=== PATIENT | female | born 1955 | race Caucasian/White ===

== ENCOUNTER → 2017-08-02 15:17 | Outpatient (REF) | payer MEDICAID, SELFPAY ==
[2017-08-02 17:27] LABS: Microscopic, Urine URINE MICROSCOPIC (MICROSCOPIC)
[2017-08-02 18:09] LABS: Basophils # 0.1 K/mm3 (0-0.2); Eosinophils # 0.1 K/mm3 (0.0-0.4); Hemoglobin 17.6 g/dL (12.2-16.2); Lymphocytes # 3.3 K/mm3 (0.7-4.5); Lymphocytes % 40.9 K/mm3 (10-50); Mean Corpuscular HGB Conc 32.7 g/dL (31.8-35.4); Mean Corpuscular Hemoglobin 31.2 pg (27.0-31.2); Mean Corpuscular Volume 95.4 fl (81-99); Mean Platelet Volume 9.5 fl (7.4-10.4); Monocytes # 0.5 K/mm3 (0.1-1.0); Monocytes % 6.4 % (1.7-9.3); Neutrophils # 4.1 K/mm3 (1.8-7.8); Neutrophils % 50.6 % (37.0-80.0); Platelet Count 281 K/mm3 (142-424); Red Blood Count 5.66 M/mm3 (4.20-5.40); White Blood Count 8.1 K/mm3 (4.8-10.8)
[2017-08-02 18:26] LABS: Appearance,Urine SL CLOUDY (Clear); Bilirubin,Urine Negative (Negative); Blood, Urine Negative (Negative); Color,Urine YELLOW (Yellow); Glucose,Urine (UA) Negative (Negative); Ketones,Urine Negative (Negative); Leukocyte Esterase,Urine TRACE (Negative); Nitrate,Urine Negative (Negative); Protein,Urine Negative (Negative); Specific Gravity, Urine 1.025 (1.005-1.030); Urobilinogen,Urine 0.2 EU/dl (0.2)
[2017-08-02 19:29] LABS: Alanine Aminotransferase 68 U/L (12-78); Alkaline Phosphatase 129 U/L (46-116); Anion Gap 8.6 mEq/L (5-15); Aspartate Amino Transferase 57 U/L (15-37); Bilirubin,Total 0.2 mg/dL (0.2-1.0); Blood Urea Nitrogen 11 mg/dL (7-18); Calcium 9.1 mg/dL (8.5-10.1); Carbon Dioxide 25 mmol/L (21.0-32.0); Chloride 105 mmol/L (98-107); Creatinine,Serum 0.65 mg/dL (0.55-1.02); Estimated Glomerular Filt Rate 92 ml/min (>60); Free T4 (Free Thyroxine) 1.06 ng/dl (0.76-1.46); GFR (African American) 111 ML/MIN (>60); Globulin 4.2 gm/dl (1.3-3.2); Glucose 109 mg/dL (74-106); Potassium 4.6 mmoL/L (3.5-5.1); Sodium 134 mmol/L (136-145); Thyroid Stimulating Hormone 1.34 uIU/ml (0.358-3.740); Total Protein,Serum 8.2 gm/dL (6.4-8.2)
[2017-08-02 19:49] LABS: Bacteria,Urine 3+ /lpf; Calcium Oxalate Crystals,Urine 2+ /lpf; Hyaline Casts,Urine Occasional #/lpf (0); RBC,Urine Occasional #/hpf (0-3); Squamous Epithelial Cell,Urine TNTC #/hpf (0-5); Yeast,Urine 1+ /lpf
[2017-08-02 19:56] LABS: Erythrocyte Sedimentation Rate 13 mm/hr (0-30)
== END ==
LOC: LAB 15:17
PROVIDERS: Visit Provider Emergency Medicine
DX: R53.83 Other fatigue (principal)
CPT/HCPCS: 80053; 81001; 84439; 84443; 85025; 85651; 87086

== ENCOUNTER → 2017-08-15 15:30 | Outpatient (REF) | payer MEDICAID, SELFPAY ==
[2017-08-15 19:09] LABS: Amphetamine/Metha Screen,Urine Negative ng/mL (<1000); Barbiturates Screen,Urine Negative ng/mL (<200); Benzodiazepines Screen,Urine Negative ng/mL (200); Cannabinoid Screen,Urine Negative ng/mL (<50); Cocaine Screen,Urine Negative ng/g (<300); Methadone Screen,Urine Negative ng/mL (<300); Opiate Screen,Urine Positive ng/mL (<300); Phencyclidine Screen,Urine Negative ng/mL (<25)
== END ==
LOC: LAB 15:30
PROVIDERS: Visit Provider Emergency Medicine
DX: Z79.899 Other long term (current) drug therapy (principal)
CPT/HCPCS: 80305

== ENCOUNTER → 2017-08-23 10:04 | Outpatient (POV) | payer MEDICAID, SELFPAY ==
[2017-08-23 10:08] VITALS: BP 150/111; PULSE 125; RESP 18; TEMP 36.7; O2SAT 97
--- NOTE | 2017-08-23 13:18 | HMH.PMCON ---
Assessment and Plan (1) Back pain Current visit: Yes Status: Chronic Category: Medical Code(s): M54.9 - Dorsalgia, unspecified - Assessment and plan all Dx Assessment and Plan for all problems:: Patient and I discussed getting her records from her previous surgeon and pain clinic. We would also like to get the MRI for review. Patient will fill out a form for us to request this information. We will follow-up with this patient in 2 weeks once we get this information. This note was dictated using voice recognition software and may contain errors or omissions HPI - Data of Consult Consult date: 08/23/17 Requesting Physician: Raven Hobbs APRN Primary Care Provider: Mode Meek MD Family Provider: Mode Meek MD - Consult Narrative Reason for consult: Back pain History of present illness: Ms. Grier is a 62 year old female presents today for consult in regards to her back pain. Patient states that she has just recently moved here from [place]. Patient previously lived in [place]. Patient states that it lived in [place] she saw a neurosurgeon along with pain management. She received injections and medications at this location. Patient does state she has an MRI however does not have any of the imaging with her. Patient states she received epidurals with several weeks relief. Patient has gotten gabapentin and [place] from her primary care physician. Patient states she is out of gabapentin already even though it is 10 days early she states she has been taking more than prescribed. Patient does state she still has her [place]. Patient has tried Lyrica in the past with no relief. Patient states most of her pain is in her low back and radiates down her right leg. Patient states that she can try to get records for us from her previous surgeon. Patient states she did not have surgery however she was not a candidate. CC: Raven Hobbs APRN [facility] History I have reviewed the patient's past medical history: Yes Medical History: Reports:: Hyperlipidemia Denies:: Cancer, Diabetes Mellitus Type 1, Diabetes Mellitus Type 2, Internal Pacemaker, MRSA Other Medical History: Reports: Arthritis, Fibromyalgia, Other (back problems) Laterality Cases: Bilateral: Tonsillectomy Other Surgeries: No: Pacemaker Amputation: No Fractures: Yes (fx nose) - *Social History Educational Level: Attended High School Smoking Status: Current every day smoker Tobacco Type: cigarettes # Packs/Day (cigarettes): 1 Alcohol Intake: never Substance Use Type: denies use Occupational Status: retired Housing: apartment Household Members: other - Psychiatric History Expresses thoughts of harming self/others: None Suicide Plan Description: No Plan *Family Hx:: Hyperlipidemia, Heart Attack Review of Systems - Review of Systems ROS General: no recent weight change, no fever, no sleep disturbances Respiratory: no cough, no shortness of air, no recurring pulmonary infections Cardiovascular/Peripheral Vascular: No chest pain, No palpitations, no edema, no shortness of breath. Gastrointestinal: no incontinence, normal bowel movements reported Genitourinary: no incontinence Musculoskeletal: Back pain, leg pain Psychiatric: normal mood/ affect, Neurological: [denies weakness in extremities], [denies balance issues] Meds Home Medications Medication Instructions Recorded Confirmed Type gabapentin 800 mg tablet 100 mg PO TID tab 08/15/17 08/23/17 History Hydrocod/Acet 5/325 mg [[place] 1 tab PO BID 08/23/17 08/23/17 History 5/325mg tablet] Allergies Allergy/AdvReac Type Severity Reaction Status Date / Time Sulfa (Sulfonamide Allergy Mild Anaphylaxis Verified 08/15/17 12:42 Antibiotics) Objective Vital signs: Temp Pulse Resp BP Pulse Ox 98.1 F 125 H 18 150/111 97 08/23/17 10:08 08/23/17 10:08 08/23/17 10:08 08/23/17 10:08 08/23/17 10:08 Narrative: Phys
--- NOTE | 2017-08-23 13:22 | P.CONS_ITS ---
Assessment and Plan (1) Back pain Current visit: Yes Status: Chronic Category: Medical Code(s): M54.9 - Dorsalgia, unspecified - Assessment and plan all Dx Assessment and Plan for all problems:: Patient and I discussed getting her records from her previous surgeon and pain clinic. We would also like to get the MRI for review. Patient will fill out a form for us to request this information. We will follow-up with this patient in 2 weeks once we get this information. This note was dictated using voice recognition software and may contain errors or omissions HPI - Data of Consult Consult date: 08/23/17 Requesting Physician: Raven Hobbs APRN Primary Care Provider: Mode Meek MD Family Provider: Mode Meek MD - Consult Narrative Reason for consult: Back pain History of present illness: Ms. Grier is a 62 year old female presents today for consult in regards to her back pain. Patient states that she has just recently moved here from [place]. Patient previously lived in [place]. Patient states that it lived in [place] she saw a neurosurgeon along with pain management. She received injections and medications at this location. Patient does state she has an MRI however does not have any of the imaging with her. Patient states she received epidurals with several weeks relief. Patient has gotten gabapentin and [place] from her primary care physician. Patient states she is out of gabapentin already even though it is 10 days early she states she has been taking more than prescribed. Patient does state she still has her [place]. Patient has tried Lyrica in the past with no relief. Patient states most of her pain is in her low back and radiates down her right leg. Patient states that she can try to get records for us from her previous surgeon. Patient states she did not have surgery however she was not a candidate. CC: Raven Hobbs APRN [facility] History I have reviewed the patient's past medical history: Yes Medical History: Reports:: Hyperlipidemia Denies:: Cancer, Diabetes Mellitus Type 1, Diabetes Mellitus Type 2, Internal Pacemaker, MRSA Other Medical History: Reports: Arthritis, Fibromyalgia, Other (back problems) Laterality Cases: Bilateral: Tonsillectomy Other Surgeries: No: Pacemaker Amputation: No Fractures: Yes (fx nose) - *Social History Educational Level: Attended High School Smoking Status: Current every day smoker Tobacco Type: cigarettes # Packs/Day (cigarettes): 1 Alcohol Intake: never Substance Use Type: denies use Occupational Status: retired Housing: apartment Household Members: other - Psychiatric History Expresses thoughts of harming self/others: None Suicide Plan Description: No Plan *Family Hx:: Hyperlipidemia, Heart Attack Review of Systems - Review of Systems ROS General: no recent weight change, no fever, no sleep disturbances Respiratory: no cough, no shortness of air, no recurring pulmonary infections Cardiovascular/Peripheral Vascular: No chest pain, No palpitations, no edema, no shortness of breath. Gastrointestinal: no incontinence, normal bowel movements reported Genitourinary: no incontinence Musculoskeletal: Back pain, leg pain Psychiatric: normal mood/ affect, Neurological: [denies weakness in extremities], [denies balance issues] Meds Home Medications Medication Instructions Recorded Confirmed Type gabapentin 800 mg tablet 100 mg PO TID tab 08/15/17 08/23/17 History Hydrocod/Acet
== END ==
PROVIDERS: PCP Emergency Medicine; Visit Provider Clinical Nurse Specialist Family Health
DX: M54.9 Dorsalgia, unspecified (principal)
CPT/HCPCS: 99202

== ENCOUNTER → 2017-09-12 13:50 | Outpatient (REF) | payer MEDICAID, SELFPAY ==
[2017-09-12 18:01] LABS: Amphetamine/Metha Screen,Urine Negative ng/mL (<1000); Barbiturates Screen,Urine Negative ng/mL (<200); Benzodiazepines Screen,Urine Negative ng/mL (200); Cannabinoid Screen,Urine Negative ng/mL (<50); Cocaine Screen,Urine Negative ng/g (<300); Methadone Screen,Urine Negative ng/mL (<300); Opiate Screen,Urine Positive ng/mL (<300); Phencyclidine Screen,Urine Negative ng/mL (<25)
== END ==
LOC: LAB 13:50
PROVIDERS: Visit Provider Emergency Medicine
DX: Z79.899 Other long term (current) drug therapy (principal)
CPT/HCPCS: 80305

== ENCOUNTER → 2017-10-11 12:23 | Outpatient (CLI) | payer MEDICAID, SELFPAY ==
--- NOTE | 2017-10-11 12:25 | MR_ITS ---
MR lumbar spine wo con, MR 3-d myelogram HISTORY: Low back pain LBP with pain radiating Bilaterally into hips and legs. ITS.REASON: Back Pain ORDERING PHYSICIAN: Mode Meek MD PATIENT AGE: 62 years Comparison: None TECHNIQUE: Standard multiplanar multiecho sequences are performed without contrast. 3-D MIP and myelographic images are also rendered and reviewed FINDINGS: There is normal alignment. Spinal cord ends at the L1 level. There is minimal lumbar scoliosis convex left. L1-L2 and L2-L3 have an unremarkable appearance. L3-L4: Facet and ligamentum flavum hypertrophy is present with mild bilateral lateral recess narrowing. L4-L5: Moderate facet and ligamentum flavum hypertrophy with moderate bilateral lateral recess narrowing and mild bilateral foraminal narrowing. L5-S1: There is an asymmetric bulging disc eccentric towards the left which is abutting the left S1 nerve root. With left lateral recess narrowing. No canal stenosis or disc herniation evident. IMPRESSION: 1. Facet and ligamentum flavum hypertrophic change with bilateral lateral recess narrowing at L3-L4 and L4-L5 greater at L4-L5 with mild bilateral foraminal narrowing at L4-L5. 2. Asymmetric bulging disc eccentric towards the left at L5-S1 abutting the left S1 nerve root 3. No canal stenosis or extruded herniated disc
--- NOTE | 2017-10-11 13:27 | XR_ITS ---
XR DEXA axial skeleton HISTORY: ITS.REASON: Post Menopausal ORDERING PHYSICIAN: Mode Meek MD PATIENT AGE: 62 years COMPARISON: None FINDINGS: The BMD measured at the Total left femoral neck is 0.700 g/cm squared with a T score of -2.4 . This is considered Osteopenic according to the World Health Organization criteria. Fracture risk is Moderate. Treatment is advised. The L1 L4 density is a T score of -0.8 IMPRESSION: Osteopenia with moderate fracture risk. Treatment suggested. Recommend follow-up exam September 2019
== END ==
PROVIDERS: PCP Emergency Medicine; Visit Provider Emergency Medicine
DX: M54.5 Low back pain (principal); Z78.0 Asymptomatic menopausal state
CPT/HCPCS: 72148; 76376; 77080

== ENCOUNTER → 2017-10-26 09:45 | Outpatient (CLI) | payer MEDICAID, SELFPAY ==
[2017-10-26 10:30] VITALS: PULSE 103; PULSE 98
== END ==
PROVIDERS: PCP Emergency Medicine; Visit Provider Emergency Medicine
DX: R06.02 Shortness of breath (principal)
CPT/HCPCS: 94060; 94640

== ENCOUNTER → 2017-11-11 15:29 | Outpatient (CLI) | payer MEDICAID, SELFPAY ==
[2017-11-11 17:22] LABS: Amphetamine/Metha Screen,Urine Negative ng/mL (<1000); Barbiturates Screen,Urine Negative ng/mL (<200); Benzodiazepines Screen,Urine Negative ng/mL (<200); Cannabinoid Screen,Urine Negative ng/mL (<50); Cocaine Screen,Urine Negative ng/mL (<300); Methadone Screen,Urine Negative ng/mL (<300); Opiate Screen,Urine Negative ng/mL (<300); Phencyclidine Screen,Urine Negative ng/mL (<25)
== END ==
PROVIDERS: Visit Provider Emergency Medicine
DX: Z79.899 Other long term (current) drug therapy (principal)
CPT/HCPCS: 80305

== ENCOUNTER → 2017-12-06 12:33 | Outpatient (REF) | payer MEDICAID, SELFPAY ==
[2017-12-13 17:16] LABS: Amphetamine/Metha Screen,Urine Negative ng/mL (<1000); Barbiturates Screen,Urine Negative ng/mL (<200); Benzodiazepines Screen,Urine Negative ng/mL (<200); Cannabinoid Screen,Urine Negative ng/mL (<50); Cocaine Screen,Urine Negative ng/mL (<300); Methadone Screen,Urine Negative ng/mL (<300); Opiate Screen,Urine Positive ng/mL (<300); Phencyclidine Screen,Urine Negative ng/mL (<25)
== END ==
LOC: LAB 12:33
PROVIDERS: Visit Provider Emergency Medicine
DX: Z79.899 Other long term (current) drug therapy (principal); F41.9 Anxiety disorder, unspecified
CPT/HCPCS: 80305

== ENCOUNTER → 2018-01-05 09:49 | Outpatient (REF) | payer MEDICAID, SELFPAY ==
[2018-01-05 15:47] LABS: Amphetamine/Metha Screen,Urine Negative ng/mL (<1000); Barbiturates Screen,Urine Negative ng/mL (<200); Benzodiazepines Screen,Urine Negative ng/mL (<200); Cannabinoid Screen,Urine Negative ng/mL (<50); Cocaine Screen,Urine Negative ng/mL (<300); Methadone Screen,Urine Negative ng/mL (<300); Opiate Screen,Urine Positive ng/mL (<300); Phencyclidine Screen,Urine Negative ng/mL (<25)
== END ==
LOC: LAB 09:49
PROVIDERS: Visit Provider Physician Assistant
DX: Z79.899 Other long term (current) drug therapy (principal)
CPT/HCPCS: 80305

== ENCOUNTER → 2018-01-09 15:33 | Outpatient (POV) | payer MEDICAID, SELFPAY ==
[2018-01-09 15:40] VITALS: BP 152/98; PULSE 126; RESP 18; O2SAT 96; BMI 22.1
--- NOTE | 2018-01-09 16:18 | HMH.PAINSOAP ---
[facility] Pain Management SOAP Note Subjective:: Patient is a pleasant 62-year-old white female who presents today for follow-up after recent MRI. Patient and I discussed her MRI findings. Patient has been in pain management before we have been unable to obtain those records even though the patient has signed a release of information. Patient states she has been getting injections and medication. Patient states the injections are not long-term. Patient is getting Eads from her primary care physician along with gabapentin. She states that this is what helps her pain. Patient and I discussed neurostimulator. Patient is concerned about her having to quit taking her pain pills. She rates her pain today a 6 out of 10. She has pain in her neck along with her low back. ROS General: no recent weight change, no fever, no sleep disturbances Respiratory: no cough, no shortness of air, no recurring pulmonary infections Cardiovascular/Peripheral Vascular: No chest pain, No palpitations, no edema, no shortness of breath. Gastrointestinal: no incontinence, normal bowel movements reported Genitourinary: no incontinence Musculoskeletal: Back pain, leg pain, neck pain, arm pain Psychiatric: normal mood/ affect Neurological: [denies weakness in extremities], [denies balance issues] Objective:: Physical Exam General: Alert and oriented x3, no acute distress, pleasant and cooperative, [on room air] Lungs: Resps E/U, Symmetrical chest expansion, Eyes: PERRL Musculoskeletal: Flexion and extension of cervical and lumbar spine somewhat guarded secondary to pain, deep tendon reflexes normal, strength in upper and lower extremities [5/5], [abnormal gait noted] Neurological: speech clear, validation analyst equal, no gross sensory deficits Assessment:: Degenerative disc disease of lumbar spine with lumbar radiculopathy Plan:: Patient states she is not a surgical candidate and has been seen by a neurosurgeon in the past. Patient does have an MRI showing bulging disc along with ligamentum flavum hypertrophy. Patient states that injections have helped but only for short time. Patient and I discussed neuro stimulation. Patient is concerned that she would not be able to take her [place]. I discussed with her that that would be between her and her primary care physician however our hope would be that she would not need that. Patient does not want to commit to this patient would like to look over some information and follow-up in a month. This note was dictated using voice recognition software and may contain errors or omissions
== END ==
PROVIDERS: PCP Emergency Medicine; Visit Provider Clinical Nurse Specialist Family Health
DX: M51.16 Intervertebral disc disorders with radiculopathy, lumbar region (principal)
CPT/HCPCS: 99212

== ENCOUNTER → 2018-02-06 08:59 | Outpatient (REF) | payer MEDICAID, SELFPAY ==
[2018-02-07 11:02] LABS: Amphetamine/Metha Screen,Urine Negative ng/mL (<1000); Barbiturates Screen,Urine Negative ng/mL (<200); Benzodiazepines Screen,Urine Negative ng/mL (<200); Cannabinoid Screen,Urine Negative ng/mL (<50); Cocaine Screen,Urine Negative ng/mL (<300); Methadone Screen,Urine Negative ng/mL (<300); Opiate Screen,Urine Positive ng/mL (<300); Phencyclidine Screen,Urine Negative ng/mL (<25)
== END ==
LOC: LAB 08:59
PROVIDERS: Visit Provider Physician Assistant
DX: Z79.899 Other long term (current) drug therapy (principal)
CPT/HCPCS: 80305

== ENCOUNTER → 2018-02-27 11:55 | Outpatient (REF) | payer MEDICAID, SELFPAY ==
[2018-02-27 13:22] LABS: Amphetamine/Metha Screen,Urine Negative ng/mL (<1000); Barbiturates Screen,Urine Negative ng/mL (<200); Benzodiazepines Screen,Urine Negative ng/mL (<200); Cannabinoid Screen,Urine Negative ng/mL (<50); Cocaine Screen,Urine Negative ng/mL (<300); Methadone Screen,Urine Negative ng/mL (<300); Opiate Screen,Urine Positive ng/mL (<300); Phencyclidine Screen,Urine Negative ng/mL (<25)
== END ==
LOC: LAB 11:55
PROVIDERS: Visit Provider Emergency Medicine
DX: Z79.899 Other long term (current) drug therapy (principal)
CPT/HCPCS: 80305

== ENCOUNTER → 2018-03-07 13:09 | Outpatient (CLI) | payer MEDICAID, SELFPAY ==
--- NOTE | 2018-03-07 13:09 | CI_ITS ---
Cerebrovascular Exam Indications: 785.9 Bruit. IMPRESSIONS 1. The bilateral vertebral arteries are patent. Normal antegrade flow in the R veterbral artery and retrograde flow in the L veterbal artery. 2. Study suggests 70-99% stenosis involving the right internal carotid artery. 3. Study suggests 50-69% stenosis involving the left internal carotid artery. 4. Study suggests >60% stenosis involving the right external carotid artery. Carotid duplex study. Complete study and Doppler flow study including spectral analysis, color and zee scale imaging. Height: Height: 162.6cm. Height: 64in. Weight: Weight: 64kg. Weight: 140.7lb. Body mass index: BMI: 24.2kg/m^2. Body surface area: BSA: 1.71m^2. Location: Vascular laboratory. Patient status: Outpatient. CRITICAL FINDINGS - Reported to: Fal[facility] fan [facility] - Read back and verified. - 03/07/18 - 6090 - 70-99% stenosisin Left ICA. Tables: Arterial flow: + +--------+--------+ Location V sys V ed + +--------+--------+ Right CCA - proximal 84.1cm/s 25.9cm/s + +--------+--------+ Right CCA - distal 95.9cm/s 31.4cm/s + +--------+--------+ Right ECA 229cm/s -------- + +--------+--------+ Right ICA - proximal 370cm/s 147cm/s + +--------+--------+ Right ICA - mid 327cm/s 103cm/s + +--------+--------+ Right ICA - distal 150cm/s 56.6cm/s + +--------+--------+ Right vertebral 52.6cm/s -------- + +--------+--------+ Left CCA - proximal 108cm/s 30.2cm/s + +--------+--------+ Left CCA - distal 126cm/s 37.7cm/s + +--------+--------+ Left ECA 257cm/s -------- + +--------+--------+ Left ICA - proximal 304cm/s 83.8cm/s + +--------+--------+ Left ICA - mid 132cm/s 42.1cm/s + +--------+--------+ Left ICA - distal 132cm/s 53.3cm/s + +--------+--------+ Left vertebral 36.5cm/s -------- + +--------+--------+ Velocity ratios: + + + + + + Right, V sys Right, V ed Left, V sys Left, V ed + + + + + + Max ICA/dist CCA 3.86 4.68 2.41 2.22 + + + + + + (Report amended ) Electronically signed by: Jacoby Dwyer [id number]
== END ==
PROVIDERS: PCP Emergency Medicine; Visit Provider Emergency Medicine
DX: R09.89 Other specified symptoms and signs involving the circulatory and respiratory systems (principal)
CPT/HCPCS: 93880

== ENCOUNTER → 2018-03-29 18:49 | Outpatient (CLI) | payer MEDICAID, SELFPAY ==
[2018-03-29 21:27] LABS: Amphetamine/Metha Screen,Urine Negative ng/mL (<1000); Barbiturates Screen,Urine Negative ng/mL (<200); Benzodiazepines Screen,Urine Negative ng/mL (<200); Cannabinoid Screen,Urine Negative ng/mL (<50); Cocaine Screen,Urine Negative ng/mL (<300); Methadone Screen,Urine Negative ng/mL (<300); Opiate Screen,Urine Positive ng/mL (<300); Phencyclidine Screen,Urine Negative ng/mL (<25)
== END ==
PROVIDERS: Visit Provider Emergency Medicine
DX: Z79.899 Other long term (current) drug therapy (principal)
CPT/HCPCS: 80305

== ENCOUNTER → 2018-04-13 09:14 | Outpatient (CLI) | payer MEDICAID, SELFPAY ==
--- NOTE | 2018-04-13 09:31 | CT_ITS ---
CT angio neck INDICATION: Carotid stenosis, carotid bruit, smoker ITS.REASON: STENOSIS ORDERING PHYSICIAN: Anshu Cazares MD PATIENT AGE: 63 years COMPARISON: None TECHNIQUE: Axial images are obtained following the intravenous administration of 100 mL of Isovue-370 . Sagittal and coronal reformatted images are reviewed as well. All CT scans at the facility use one or more dose reduction, viz: automated exposure control, ma/kV adjustment per patient size (including targeted exams where dose is matched to indication, i.e. head), or iterative reconstruction technique. FINDINGS: Angiographic findings: Atheromatous changes are present involving the aortic arch. There is occlusion of the ostium of the left subclavian artery with immediate reconstitution.. Just distal to the area of reconstitution however, there is a 1.5 cm long area of severe stenosis with near occlusion. The stenosis is greater than 90%. The left subclavian artery didn't become normal in caliber at the level of the ostium of the left vertebral artery. There is mild stenosis at the ostium of the left vertebral artery of 25%. Left vertebral artery is small. Atheromatous changes are present involving the distal left common carotid artery and proximal left internal carotid artery with 60% stenosis of the ostium of the left internal carotid artery. The right side is more difficult to assess due to artifact from contrast within the venous system. The right brachiocephalic artery has an unremarkable appearance. Right common carotid is unremarkable. Calcific plaque is present at the distal common carotid and proximal ICA. There is high-grade short segment stenosis of the ostium of the right ICA of approximately 71%. There is calcific plaque at this region. The distal aspect of the ICA has an unremarkable appearance. Atheromatous changes are present involving the right subclavian artery. These are somewhat more difficult to assess due to overlying artifact from contrast within the venous system. There does appear to be some stenosis involving the proximal subclavian the degree of which is difficult to determine. There is moderate stenosis of the subclavian catheter and just distal to the origin of the right vertebral artery. There is a high-grade stenosis of the ostium of the right vertebral artery of at least 90%. There is 40% stenosis of the right subclavian artery at the level of and just distal to the origin of the vertebral. There is dilatation of the right internal jugular vein with extensive artifact from contrast within the right subclavian vein with collaterals about the right supraclavicular region. IMPRESSION: Abnormal CT angiogram of the neck with multiple abnormalities as described above which include: 1. 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 25% stenosis of the ostium of a small left vertebral artery. The origin of the left vertebral is just distal to the severe area of subclavian stenosis 3. 60% short segment stenosis of the ostium of the left internal carotid artery 4. 70% stenosis of the ostium of the right internal carotid artery. 5. Severe stenosis of the ostium of the dominant right vertebral artery of at least 90%. 6. At least 40% stenosis of the right subclavian artery at and just distal to the origin of the right vertebral. It is somewhat difficult to evaluate for arteries on the right due to artifact from contrast within the venous system.
[2018-04-13 09:32] LABS: Blood Urea Nitrogen 12 mg/dL (7-18); Creatinine,Serum 0.74 mg/dL (0.55-1.02); Estimated Glomerular Filt Rate 79 ml/min (>60); GFR (African American) 96 ML/MIN (>60)
== END ==
PROVIDERS: Visit Provider Thoracic Surgery (Cardiothoracic Vascular Surgery)
DX: I65.23 Occlusion and stenosis of bilateral carotid arteries (principal)
CPT/HCPCS: 36415; 70498; 82565; 84520; Q9967

== ENCOUNTER → 2018-04-28 17:21 | Outpatient (CLI) | payer MEDICAID, SELFPAY ==
[2018-04-28 20:34] LABS: Amphetamine/Metha Screen,Urine Negative ng/mL (<1000); Barbiturates Screen,Urine Negative ng/mL (<200); Benzodiazepines Screen,Urine Negative ng/mL (<200); Cannabinoid Screen,Urine Negative ng/mL (<50); Cocaine Screen,Urine Negative ng/mL (<300); Methadone Screen,Urine Negative ng/mL (<300); Opiate Screen,Urine Positive ng/mL (<300); Phencyclidine Screen,Urine Negative ng/mL (<25)
== END ==
PROVIDERS: Visit Provider Emergency Medicine
DX: Z79.899 Other long term (current) drug therapy (principal)
CPT/HCPCS: 80305

== ENCOUNTER → 2018-05-29 13:58 | Outpatient (CLI) | payer MEDICAID, SELFPAY ==
[2018-05-29 14:55] LABS: Amphetamine/Metha Screen,Urine Negative ng/mL (<1000); Barbiturates Screen,Urine Negative ng/mL (<200); Benzodiazepines Screen,Urine Negative ng/mL (<200); Cannabinoid Screen,Urine Negative ng/mL (<50); Cocaine Screen,Urine Negative ng/mL (<300); Methadone Screen,Urine Negative ng/mL (<300); Opiate Screen,Urine Positive ng/mL (<300); Phencyclidine Screen,Urine Negative ng/mL (<25)
== END ==
PROVIDERS: Visit Provider Emergency Medicine
DX: Z79.899 Other long term (current) drug therapy (principal)
CPT/HCPCS: 80305

== ENCOUNTER → 2018-06-28 13:44 | Outpatient (CLI) | payer MEDICAID, SELFPAY ==
[2018-06-29 17:18] LABS: Amphetamine/Metha Screen,Urine Negative ng/mL (<1000); Barbiturates Screen,Urine Negative ng/mL (<200); Benzodiazepines Screen,Urine Negative ng/mL (<200); Cannabinoid Screen,Urine Negative ng/mL (<50); Cocaine Screen,Urine Negative ng/mL (<300); Methadone Screen,Urine Negative ng/mL (<300); Opiate Screen,Urine Positive ng/mL (<300); Phencyclidine Screen,Urine Negative ng/mL (<25)
== END ==
PROVIDERS: Visit Provider Emergency Medicine
DX: Z79.899 Other long term (current) drug therapy (principal)
CPT/HCPCS: 80305

== ENCOUNTER → 2018-07-25 17:02 | Outpatient (CLI) | payer MEDICAID, SELFPAY ==
[2018-07-25 19:05] LABS: Amphetamine/Metha Screen,Urine Negative ng/mL (<1000); Barbiturates Screen,Urine Negative ng/mL (<200); Benzodiazepines Screen,Urine Negative ng/mL (<200); Cannabinoid Screen,Urine Negative ng/mL (<50); Cocaine Screen,Urine Negative ng/mL (<300); Methadone Screen,Urine Negative ng/mL (<300); Opiate Screen,Urine Positive ng/mL (<300); Phencyclidine Screen,Urine Negative ng/mL (<25)
== END ==
PROVIDERS: Visit Provider Emergency Medicine
DX: Z79.899 Other long term (current) drug therapy (principal)
CPT/HCPCS: 80305

== ENCOUNTER → 2018-09-06 17:05 | Outpatient (CLI) | payer MEDICAID, SELFPAY ==
--- NOTE | 2018-09-06 17:10 | MM_ITS ---
MM Dig screening mamm BI w/CAD CAD Screening COMPARISON: None, this is baseline INDICATION: There is a history of breast cancer in patient's half sister. TECHNIQUE: Standard CC and MLO images were obtained. R2 CAD reviewed. FINDINGS: The breasts are composed primarily of fat with minimal scattered fibroglandular densities in each breast. There is an asymmetric benign-appearing density inner quadrant right breast at approximately 3:00 position likely a cyst or fibroadenoma but since is the baseline study recommend patient return for ultrasound evaluation. There are couple benign-appearing calcination is in each breast. There are no suspicious microcalcifications. There is a mole marker right breast. IMPRESSION: Fatty type breast parenchyma with asymmetric density right breast BI-RADS Category: 0 Need Additional Imaging Evaluation RECOMMENDED FOLLOW-UP: IMM - IMMEDIATE FOLLOW-UP RECOMMENDED (A letter has been sent to the patient regarding results of the study.)
== END ==
PROVIDERS: PCP Emergency Medicine; Referring Provider Emergency Medicine; Visit Provider Emergency Medicine
DX: Z12.31 Encounter for screening mammogram for malignant neoplasm of breast (principal)
CPT/HCPCS: 77067

== ENCOUNTER → 2018-09-20 16:39 | Outpatient (CLI) | payer MEDICAID, SELFPAY ==
[2018-09-20 18:45] LABS: Amphetamine/Metha Screen,Urine Negative ng/mL (<1000); Barbiturates Screen,Urine Negative ng/mL (<200); Benzodiazepines Screen,Urine Negative ng/mL (<200); Cannabinoid Screen,Urine Negative ng/mL (<50); Cocaine Screen,Urine Negative ng/mL (<300); Methadone Screen,Urine Negative ng/mL (<300); Opiate Screen,Urine Positive ng/mL (<300); Phencyclidine Screen,Urine Negative ng/mL (<25)
== END ==
PROVIDERS: Visit Provider Emergency Medicine
DX: Z79.899 Other long term (current) drug therapy (principal)
CPT/HCPCS: 80305

== ENCOUNTER → 2018-09-22 14:37 | Outpatient (CLI) | payer MEDICAID, SELFPAY ==
--- NOTE | 2018-09-22 14:42 | US_ITS ---
US breast RT complete INDICATION: Follow-up abnormal mammogram ORDERING PHYSICIAN: TREMAYNE Felton PATIENT AGE: 63 years COMPARISON: 09/06/2018 TECHNIQUE: Right breast ultrasound the axilla FINDINGS: Within the 12:00 region of the right breast there is a 10 x 5 mm oval hypoechoic nodule with some decreased through transmission of sound. This is well-circumscribed but does not appear to represent a simple cyst. Recommend biopsy is postmenopausal patient. While reviewing the ultrasound the previous mammogram of 09/06/2018 was also reviewed. There was an area of asymmetric density in the central aspect of the left breast. This is only well demonstrated on the cc view but appears to be in the inferior one third of the left breast on the MLO view. I would also recommend spot compression views of this area as well as left breast ultrasound for further evaluation. IMPRESSION: Right breast nodule appears to be solid with decreased through transmission of sound. This may be due to a fibroadenoma however, biopsy is recommended in this postmenopausal patient. This could be biopsied with stereotactic technique. Would also recommend spot compression views and left breast ultrasound of the asymmetric density in the central aspect of the left breast to be performed before the right-sided biopsy. Right breast: BI-RADS Category: 4 Suspicious Abnormality-Biopsy Considered Left breast: BI-RADS Category 0 additional imaging recommended Recommend stereotactic biopsy of the right breast and additional images of the left breast (A letter has been sent to the patient regarding results of the study.)
== END ==
PROVIDERS: PCP Emergency Medicine; Visit Provider Physician Assistant
DX: R92.8 Other abnormal and inconclusive findings on diagnostic imaging of breast (principal)
CPT/HCPCS: 76641

== ENCOUNTER → 2018-10-16 14:34 | Outpatient (CLI) | payer MEDICAID, SELFPAY ==
--- NOTE | 2018-10-16 14:47 | US_ITS ---
MM Dig mamm DX unilat LT CAD, US breast LT complete INDICATION: Follow-up abnormal mammogram ORDERING PHYSICIAN: TREMAYNE Felton PATIENT AGE: 63 years COMPARISON: 09/06/2018 TECHNIQUE: Spot compression views, rolled views, and left breast ultrasound FINDINGS: There is an asymmetric density involving the inferior aspect of the left breast. Spot compression views and rolled views are obtained of this area. At least part of this density is felt to be due to an overlying vessel combined with some overlying ossifications. An additional small density is located also in this area and separates from the tubular vascular appearing density on the rolled view. Left breast ultrasound: There is a 4 mm cyst at the 6:00 region of the left breast which may correspond to the mammographic abnormality. As probably benign and six-month follow-up is suggested. No suspicious nodules are evident IMPRESSION: Probably benign asymmetric density inferior left breast. Recommend 6 month mammographic and sonographic follow-up BI-RADS Category: 3 Probably Benign Finding Short Term Follow-up RECOMMENDED FOLLOW-UP: 6M - 6 MONTH FOLLOW-UP (A letter has been sent to the patient regarding results of the study.)
== END ==
PROVIDERS: PCP Emergency Medicine; Visit Provider Physician Assistant
DX: R92.2 Inconclusive mammogram (principal)
CPT/HCPCS: 76641; 77065

== ENCOUNTER → 2018-10-25 09:02 | Outpatient (CLI) | payer MEDICAID, SELFPAY | PROVIDERS: PCP Physician Assistant; Visit Provider Physician Assistant | DX: R92.8 Other abnormal and inconclusive findings on diagnostic imaging of breast (principal) ==

== ENCOUNTER → 2018-11-28 09:13 | Outpatient (CLI) | payer MEDICAID, SELFPAY ==
--- NOTE | 2018-11-28 10:01 | US_ITS ---
US mammotome bx RT, MM clip placement RT INDICATION: Abnormal mammogram. Right breast nodule ORDERING PHYSICIAN: TERMAYNE Felton PATIENT AGE: 63 years COMPARISON: 09/06/2018 TECHNIQUE: Following obtaining informed consent and timeout procedure with oral sedation with 1 mg of alprazolam and 5 mg of hydrocodone, under aseptic conditions and local anesthesia with 1% buffered lidocaine and deeper anesthesia with lidocaine mixed with epinephrine using sonographic guidance, mammotome needle was inserted along the deep aspect of the previously noted nodule in the 1:00 aspect of the right breast. Multiple cores were obtained and a nonferromagnetic clip was placed. The patient tolerated the procedure well without evidence of immediate complications. Postbiopsy mammogram: There are postbiopsy changes medially in the area of the nodule previously noted. Previously noted nodule is less apparent. A biopsy clip is present posterior to the nodule. Pathology: Fibroadenoma to a change. No evidence of atypical hyperplasia, in situ, or invasive carcinoma IMPRESSION: Successful ultrasound-guided mammotome biopsy of the right breast showing benign findings. Recommendations: 6 month mammographic follow-up of both breasts. Previous mammogram of 10/16/2018 showed a probably benign abnormality left breast for which six-month follow-up is recommended. Recommend 6 month follow-up of the right breast per routine protocol following biopsy
== END ==
PROVIDERS: PCP Emergency Medicine; Visit Provider Physician Assistant
DX: R92.8 Other abnormal and inconclusive findings on diagnostic imaging of breast (principal); N63.11 Unspecified lump in the right breast, upper outer quadrant
CPT/HCPCS: 19083; 76942; 77065; 88305; C2618

== ENCOUNTER → 2018-12-27 18:54 | Outpatient (CLI) | payer MEDICAID, SELFPAY ==
[2018-12-27 19:30] LABS: Amphetamine/Metha Screen,Urine Negative ng/mL (<1000); Barbiturates Screen,Urine Negative ng/mL (<200); Benzodiazepines Screen,Urine Negative ng/mL (<200); Cannabinoid Screen,Urine Negative ng/mL (<50); Cocaine Screen,Urine Negative ng/mL (<300); Methadone Screen,Urine Negative ng/mL (<300); Opiate Screen,Urine Positive ng/mL (<300); Phencyclidine Screen,Urine Negative ng/mL (<25)
== END ==
PROVIDERS: Visit Provider Emergency Medicine
DX: Z79.899 Other long term (current) drug therapy (principal)
CPT/HCPCS: 80305

== ENCOUNTER → 2019-02-21 18:03 | Outpatient (CLI) | payer MEDICAID, SELFPAY ==
[2019-02-21 19:23] LABS: Amphetamine/Metha Screen,Urine Negative ng/mL (<1000); Barbiturates Screen,Urine Negative ng/mL (<200); Benzodiazepines Screen,Urine Negative ng/mL (<200); Cannabinoid Screen,Urine Negative ng/mL (<50); Cocaine Screen,Urine Negative ng/mL (<300); Methadone Screen,Urine Negative ng/mL (<300); Opiate Screen,Urine Positive ng/mL (<300); Phencyclidine Screen,Urine Negative ng/mL (<25)
== END ==
PROVIDERS: Visit Provider Emergency Medicine
DX: M51.26 Other intervertebral disc displacement, lumbar region (principal)
CPT/HCPCS: 80305

== ENCOUNTER → 2019-06-26 15:10 | Outpatient (CLI) | payer MEDICARE, MEDICAID, SELFPAY ==
--- NOTE | 2019-06-26 15:19 | US_ITS ---
PROCEDURE: US BREAST LT COMPLETE CLINICAL INDICATION: 6 mth f/u due after 04/17/19 COMPARISON: BREASTLT US breast LT complete from 10/16/2018 FINDINGS: Again noted is a small somewhat oval cystic-appearing structure at the 6 o'clock position measuring 0.3 by 0.4 x 0.2 cm. It is unchanged in size and overall appearance from the previous ultrasound exam 10/16/2018. the surrounding breast parenchyma is unremarkable. There is a normal appearing node in the axilla. IMPRESSION: Stable benign-appearing cyst and recommend the patient continue with yearly screening mammography Dictated by: Dr. Mukul Vail MD 06/28/2019 17:[address] Mukul Vail MD in [place] 06/28/2019 17:01
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
== END ==
PROVIDERS: PCP Physician Assistant; Visit Provider Emergency Medicine
DX: R92.8 Other abnormal and inconclusive findings on diagnostic imaging of breast (principal)
CPT/HCPCS: 76641; 77061; 77065; G0279

== ENCOUNTER → 2020-07-23 18:52 | Outpatient (CLI) | payer MEDICARE, MEDICAID, SELFPAY ==
[2020-07-23 19:04] LABS: Basophils # 0.2 K/mm3 (0-0.2); Basophils % 1.5 % (0.1-2.0); Eosinophils # 0.1 K/mm3 (0.0-0.4); Eosinophils % 1.3 % (0.1-12.0); Hemoglobin 16.5 g/dL (12.2-16.2); Lymphocytes # 4.7 K/mm3 (0.7-4.5); Lymphocytes % 44.9 % (10-50); Mean Corpuscular HGB Conc 32.3 g/dL (31.8-35.4); Mean Corpuscular Hemoglobin 31.5 pg (27.0-31.2); Mean Corpuscular Volume 97.6 fl (81-99); Mean Platelet Volume 8.5 fl (7.4-10.4); Monocytes # 0.9 K/mm3 (0.1-1.0); Monocytes % 8.7 % (1.7-9.3); Neutrophils # 4.6 K/mm3 (1.8-7.8); Neutrophils % 43.6 % (37.0-80.0); Platelet Count 282 K/mm3 (142-424); Red Blood Count 5.23 M/mm3 (4.20-5.40); Red Cell Distribution Width 13.8 % (11.5-17.5); White Blood Count 10.5 K/mm3 (4.8-10.8)
[2020-07-23 19:07] LABS: Alanine Aminotransferase 18 U/L (12-78); Alkaline Phosphatase 98 U/L (38-126); Anion Gap 14.1 mEq/L (5-15); Aspartate Amino Transferase 41 U/L (14-36); Bilirubin,Total 0.6 mg/dl (0.2-1.3); Blood Urea Nitrogen 12 mg/dl (7-17); Carbon Dioxide 26 mmol/L (22.0-30.0); Chloride 101 mmol/L (98-107); Chol/HDL Ratio 6.5 (1-3.5); Cholesterol 201 mg/dl (140-200); Estimated Glomerular Filt Rate 123 ml/min (>60); GFR (African American) 149 ML/MIN (>60); Glucose 97 mg/dl (74-100); HDL Cholesterol 31 mg/dl (40-60); Potassium 4.1 mmoL/L (3.5-5.1); Sodium 137 mmol/L (136-145); Triglycerides 185 mg/dl (30-150); VLDL Cholesterol 37 mg/dL (0-40)
[2020-07-23 19:18] LABS: Direct LDL Cholesterol 132.62 mg/dL (100-129)
[2020-07-23 19:22] LABS: Free T4 (Free Thyroxine) 1.49 ng/dl (0.78-2.19)
[2020-07-23 19:38] LABS: Thyroid Stimulating Hormone 1.87 uIU/mL (0.465-4.68)
[2020-07-23 19:48] LABS: 25-OH Vitamin D, Total < 12.8 ng/mL (30-100)
[2020-07-24 08:25] LABS: Amphetamine/Metha Screen,Urine Negative ng/ml (<1000); Barbiturates Screen,Urine Negative ng/ml (<200)
[2020-07-24 08:28] LABS: Benzodiazepines Screen,Urine Negative ng/ml (<200)
[2020-07-24 08:29] LABS: Cannabinoid Screen,Urine Negative ng/ml (<50); Cocaine Screen,Urine Negative ng/ml (<300)
[2020-07-24 08:30] LABS: Methadone Screen,Urine Negative ng/ml (<300)
[2020-07-24 08:31] LABS: Opiate Screen,Urine Positive ng/ml (<300); Phencyclidine Screen,Urine Negative ng/ml (<25)
== END ==
PROVIDERS: Visit Provider Emergency Medicine
DX: R53.83 Other fatigue (principal); E55.9 Vitamin D deficiency, unspecified; F41.9 Anxiety disorder, unspecified; R19.5 Other fecal abnormalities; E78.5 Hyperlipidemia, unspecified; M47.896 Other spondylosis, lumbar region
CPT/HCPCS: 80053; 80061; 80305; 82306; 84439; 84443; 85025

== ENCOUNTER → 2020-09-19 16:55 | Outpatient (CLI) | payer MEDICARE, MEDICAID, SELFPAY ==
[2020-09-19 17:52] LABS: Amphetamine/Metha Screen,Urine Negative ng/ml (<1000); Barbiturates Screen,Urine Negative ng/ml (<200)
[2020-09-19 17:53] LABS: Benzodiazepines Screen,Urine Negative ng/ml (<200)
[2020-09-19 17:54] LABS: Cannabinoid Screen,Urine Negative ng/ml (<50); Methadone Screen,Urine Negative ng/ml (<300)
[2020-09-19 17:55] LABS: Cocaine Screen,Urine Negative ng/ml (<300)
[2020-09-19 17:56] LABS: Opiate Screen,Urine Positive ng/ml (<300); Phencyclidine Screen,Urine Negative ng/ml (<25)
== END ==
PROVIDERS: Visit Provider Emergency Medicine
DX: M47.896 Other spondylosis, lumbar region (principal)
CPT/HCPCS: 80305

== ENCOUNTER → 2020-11-17 08:00 | Outpatient (CLI) | payer MEDICAID, MEDICARE, SELFPAY | PROVIDERS: Visit Provider Emergency Medicine | DX: M47.896 Other spondylosis, lumbar region (principal) ==

== ENCOUNTER → 2020-11-18 09:16 | Outpatient (CLI) | payer MEDICARE, MEDICAID, SELFPAY ==
[2020-11-18 09:57] LABS: Amphetamine/Metha Screen,Urine Negative ng/ml (<1000)
[2020-11-18 09:58] LABS: Barbiturates Screen,Urine Negative ng/ml (<200); Benzodiazepines Screen,Urine Negative ng/ml (<200)
[2020-11-18 09:59] LABS: Cannabinoid Screen,Urine Negative ng/ml (<50)
[2020-11-18 10:00] LABS: Cocaine Screen,Urine Negative ng/ml (<300); Methadone Screen,Urine Negative ng/ml (<300)
[2020-11-18 10:01] LABS: Opiate Screen,Urine Positive ng/ml (<300)
[2020-11-18 10:02] LABS: Phencyclidine Screen,Urine Negative ng/ml (<25)
== END ==
PROVIDERS: Visit Provider Emergency Medicine
DX: M47.896 Other spondylosis, lumbar region (principal)
CPT/HCPCS: 80305

== ENCOUNTER → 2021-01-13 06:45 | Outpatient (CLI) | payer MEDICARE, MEDICAID, SELFPAY ==
--- NOTE | 2021-01-13 06:46 | CT_ITS ---
PROCEDURE: CT LUNG SCREENING CLINICAL INDICATION: lung cancer screening COMPARISON: No exams were available for comparison TECHNIQUE: The exam was performed on a GE Light Speed [address] scanner using 2.90 mGy CTDI. A low dose helical CT CHEST was performed on a multi-detector scanner. All CT scans at the facility use one or more dose reduction, viz: automated exposure control, ma/kV adjustment per patient size (including targeted exams where dose is matched to indication, i.e. head), or iterative reconstruction technique. The LDCT was performed in a facility that meets the criteria for the screening program. Data regarding this exam was submitted to ACR which is an approved registry. The order for this exam indicates that it came as a result of a lung cancer screening counseling shard decision-making visit that included all the elements required of such a visit including smoking cessation. The radiologist interpreting this exam meets the CMS criteria for the LDCT lung cancer screening program. The exam is reported using the Lung-RADS classification scale and reported to the ACR registry. NOTE: This study was performed for the specific purposes of lung cancer screening and is not an alternative to diagnostic chest CT. RADIATION DOSE: CTDI vol(CT dose Index-volume) = 2.90mG DLP (Dose Length Product) = 113.85 mGcm FINDINGS: COPD changes with scattered areas of scarring. 8 x 9 mm noncalcified spiculated nodular opacity right upper lobe posteriorly 18. Scattered calcified nodules. Scarring in the lingula. OTHER FINDINGS: Coronary artery calcifications. There are few small mediastinal lymph nodes. In the deep aspect of the right breast centrally there is a 5 mm nodular opacity with an adjacent clip. Asymmetric density inferior left breast with few coarse calcification. Suggest bilateral diagnostic mammogram for further evaluation there is mild fusiform dilatation of the aorta at the aortic hiatus at 3 cm. Infrarenal fusiform abdominal aortic aneurysm measuring 4 cm. This is incompletely imaged. IMPRESSION: Lung-RADS Category 4A Suspicious regarding right apical nodule. Follow-up: [address] Chest with contrast; PET/CT may be used when there is a greater than or equal to a 8 mm solid component. Also recommend diagnostic mammogram and ultrasound for bilateral breast nodules. Dictated by: Jacoby Dwyer MD 01/19/2021 09:15 Jacoby Dwyer MD in [facility] 01/19/2021 09:15
== END ==
PROVIDERS: PCP Emergency Medicine; Visit Provider Emergency Medicine
DX: Z87.891 Personal history of nicotine dependence (principal); Z12.2 Encounter for screening for malignant neoplasm of respiratory organs
CPT/HCPCS: 71271

== ENCOUNTER → 2021-01-16 17:31 | Outpatient (CLI) | payer MEDICARE, MEDICAID, SELFPAY ==
[2021-01-16 19:09] LABS: Benzodiazepines Screen,Urine Negative ng/ml (<200)
[2021-01-16 19:10] LABS: Amphetamine/Metha Screen,Urine Negative ng/ml (<1000); Barbiturates Screen,Urine Negative ng/ml (<200)
[2021-01-16 19:11] LABS: Cannabinoid Screen,Urine Negative ng/ml (<50); Methadone Screen,Urine Negative ng/ml (<300)
[2021-01-16 19:12] LABS: Cocaine Screen,Urine Negative ng/ml (<300)
[2021-01-16 19:20] LABS: Opiate Screen,Urine Negative ng/ml (<300)
[2021-01-16 19:21] LABS: Phencyclidine Screen,Urine Negative ng/ml (<25)
== END ==
PROVIDERS: Visit Provider Emergency Medicine
DX: M47.896 Other spondylosis, lumbar region (principal)
CPT/HCPCS: 80305

== ENCOUNTER → 2021-03-09 09:30 | Outpatient (CLI) | payer MEDICARE, MEDICAID, SELFPAY ==
--- NOTE | 2021-03-09 09:30 | US_ITS ---
PROCEDURE: US ABD. AORTA SCREENING CLINICAL INDICATION: screening COMPARISON: No exams were available for comparison FINDINGS: There is severe atherosclerosis of the visualized extent of the abdominal aorta with extensive plaque formation. There is an abdominal aortic aneurysm measuring 4.5 centimeters in maximal diameter. There is minimal to no flow seen on color Doppler in the abdominal aorta, suggesting the abdominal aortic aneurysm is likely thrombosed. IMPRESSION: Severe vascular disease with 4.5 centimeter abdominal aortic aneurysm with extensive plaque and probable thrombosis. Clinical correlation with vascular symptoms and further evaluation with CTA is recommended. Dictated by: Elisa Flynn 03/09/2021 11:03 Elisa Flynn in [facility] 03/09/2021 11:03
== END ==
PROVIDERS: PCP Emergency Medicine; Visit Provider Emergency Medicine
DX: I77.819 Aortic ectasia, unspecified site (principal)
CPT/HCPCS: 76705

== ENCOUNTER 2021-03-09 10:44 | Emergency (ER) | payer MEDICARE, MEDICAID, SELFPAY ==
[2021-03-09] VITALS (10 sets, daily range): BP systolic 98–143; BP diastolic 44–74; PULSE 49–92; RESP 12–18; TEMP 36.6; O2SAT 90–98; BMI 17.9
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
[2021-03-09 11:04] LABS: Basophils # 0.1 K/mm3 (0-0.2); Eosinophils # 0.2 K/mm3 (0.0-0.4); Eosinophils % 2.4 % (0.1-12.0); Hematocrit 42.4 % (37.0-47.0); Hemoglobin 13.5 g/dL (12.2-16.2); Lymphocytes # 2.9 K/mm3 (0.7-4.5); Lymphocytes % 33.3 % (10-50); Mean Corpuscular HGB Conc 31.9 g/dL (31.8-35.4); Mean Corpuscular Hemoglobin 32.4 pg (27.0-31.2); Mean Corpuscular Volume 101.6 fl (81-99); Mean Platelet Volume 8.3 fl (7.4-10.4); Monocytes # 0.4 K/mm3 (0.1-1.0); Monocytes % 4.9 % (1.7-9.3); Neutrophils # 5.1 K/mm3 (1.8-7.8); Neutrophils % 58.4 % (37.0-80.0); Platelet Count 248 K/mm3 (142-424); Red Blood Count 4.17 M/mm3 (4.20-5.40); Red Cell Distribution Width 15.3 % (11.5-17.5); White Blood Count 8.7 K/mm3 (4.8-10.8)
[2021-03-09 12:35] LABS: Chloride 108 mmol/L (98-107); Potassium 3.5 mmoL/L (3.5-5.1); Sodium 141 mmol/L (136-145)
[2021-03-09 12:38] LABS: Alanine Aminotransferase 18 U/L (12-78); Alkaline Phosphatase 82 U/L (38-126); Aspartate Amino Transferase 50 U/L (14-36); Bilirubin,Total 0.2 mg/dl (0.2-1.3); Blood Urea Nitrogen 10 mg/dl (7-17); Calcium 8.1 mg/dl (8.4-10.2); Carbon Dioxide 25 mmol/L (22.0-30.0); Creatinine Clearance Estimated 38 mL/min (50-200); Estimated Glomerular Filt Rate 160 ml/min (>60); GFR (African American) 193 ML/MIN (>60); Globulin 3.1 g/dL (1.3-3.2); Glucose 110 mg/dl (74-100); Lipase 260 U/L (23-300); Total Protein,Serum 6.1 g/dl (6.3-8.2)
[2021-03-09 12:42] LABS: Anion Gap 11.5 mEq/L (5-15)
[2021-03-09 12:51] LABS: Troponin I < 0.01 ng/ml (0.00-0.034)
--- NOTE | 2021-03-09 13:09 | [facility].EDMVA ---
ED Disposition Clinical Impression: Left rib fracture Qualifiers: Encounter type: initial encounter Rib fracture type: single rib Fracture type: closed Qualified Code(s): S22.32XA - Fracture of one rib, left side, initial encounter for closed fracture Closed head injury Qualifiers: Encounter type: initial encounter Qualified Code(s): S09.90XA - Unspecified injury of head, initial encounter Chin laceration Qualifiers: Encounter type: initial encounter Qualified Code(s): S01.81XA - Laceration without foreign body of other part of head, initial encounter Disposition: Home, Self-Care Condition on Discharge: Good Instructions: DI for Concussion Prescriptions: Hydrocod/Acet 5/325 mg [Cohoes 5/325mg tablet] 1 tab PO Q6HP PRN #10 tab PRN Reason: Moderate Pain [facility] methocarbamoL [Methocarbamol] 750 mg PO QID 7 Days #28 tab Transmission Status: Pending to [facility] Referrals: Mode Meek MD [Primary Care Provider] - - Critical Care Critical Care Time: No Attestation: On 03/09/21, the high probability of a clinically significant, sudden or life threatening deterioration of the following system(s) required my full and direct attention, intervention and personal management. The time I documented below is in addition to time spent performing reported procedures but includes the following listed in this critical care notation. Medical Decision Making - Medical Records Medical records reviewed: Yes: I reviewed the patient's medical records. - Francisco Inquiry Pt receiving controlled substance: Yes Francisco was queried for this patient: No Reason not queried -: Emergent pt cond-no time Risks and benefits of using a controlled substance: were discussed with pt by me Vital Signs: 03/09/21 10:46 03/09/21 11:00 03/09/21 11:10 Temperature 97.8 F Temperature Source Oral Pulse Rate 49 L Pulse Rate [Left Radial] 92 H Respiratory Rate 16 15 16 Blood Pressure 114/66 116/46 L Blood Pressure [Right Arm] 114/66 Blood Pressure Mean 77 69 Blood Pressure Mean [Right Arm] 82 Blood Pressure Source [Right Arm] Automatic Cuff Blood Pressure Position [Right Arm] Sitting 02 Sat by Pulse Oximetry 90 L 90 L 95 Oxygen Delivery Method Room Air 03/09/21 12:01 03/09/21 12:30 03/09/21 13:00 Temperature Temperature Source Pulse Rate Pulse Rate [Left Radial] Respiratory Rate 15 13 14 Blood Pressure 143/58 H 118/45 L 112/44 L Blood Pressure [Right Arm] Blood Pressure Mean 72 74 66 Blood Pressure Mean [Right Arm] Blood Pressure Source [Right Arm] Blood Pressure Position [Right Arm] 02 Sat by Pulse Oximetry Oxygen Delivery Method - Lab Data Lab Results 03/09/21 10:53: WBC 8.7, RBC 4.17 L, Hgb 13.5, Hct 42.4, MCV 101.6 H, MCH 32.4 H, MCHC 31.9, RDW 15.3, Plt Count 248, MPV 8.3, Neut % (Auto) 58.4, Lymph % (Auto) 33.3, [place] % (Auto) 4.9, Eos % (Auto) 2.4, Baso % (Auto) 1.0, Neut # (Auto) 5.1, Lymph # (Auto) 2.9, [place] # (Auto) 0.4, Eos # (Auto) 0.2, Baso # (Auto) 0.1 03/09/21 12:19: Sodium 141, Potassium 3.5, Chloride 108 H, Carbon Dioxide 25, Anion Gap 11.5, BUN 10, Creatinine 0.40 L, Estimated Creat Clear 38, Estimated GFR 160, Est GFR ( Amer) 193, Glucose 110 H, Calcium 8.1 L, Total Bilirubin 0.2, AST 50 H, ALT 18, Alkaline Phosphatase 82, Troponin I < 0.01, Total Protein 6.1 L, Albumin 3.0 L, Globulin 3.1, Albumin/Globulin Ratio 1.0 L, Lipase 260 Result diagrams: 03/09/21 10:53 03/09/21 12:19 Orders (Tests/Meds): ED MEDICATIONS Discontinued Medications Generic Name Dose Route Start Last Admin Trade Name Freq PRN Reason Stop Dose Admin Fentanyl Citrate 50 mcg 03/09/21 12:01 03/09/21 12:02 Fentanyl 250mcg/5ml Vial IV 03/09/21 12:02 50 mcg ONCE ONE Administration Fentanyl Citrate 50 mcg 03/09/21 12:20 03/09/21 12:34 Fentanyl 100mcg/2ml Vial IV 03/09/21 12:21 50 mcg ONCE ONE Admi
== END 2021-03-09 17:01 | disposition home or self-care (01) ==
PROVIDERS: Emergency Provider Emergency Medicine; PCP Emergency Medicine
DX: S22.32XA Fracture of one rib, left side, initial encounter for closed fracture (principal); S01.81XA Laceration without foreign body of other part of head, initial encounter; S09.90XA Unspecified injury of head, initial encounter; Z23 Encounter for immunization
CPT/HCPCS: 12013; 36415; 70450; 71045; 71275; 72125; 72128; 72131; 72170; 74177; 76705; 80053; 83690; 84484; 85025; 90715; 96365; 96375; 96376; 99281; Q9967

== ENCOUNTER → 2021-03-13 11:26 | Outpatient (CLI) | payer MEDICARE, MEDICAID, SELFPAY ==
--- NOTE | 2021-03-13 11:26 | CT_ITS ---
Procedure: CT ANGIO ABDOMEN CLINICAL HISTORY: 4.7 cm AAA, and occlusion of the iliac arteries. COMPARISON: US US ABD. AORTA SCREENING from 03/09/[address] ABDOMEN PELVIS W CON from 03/09/[address] ANGIO CHEST from 03/09/2021 TECHNIQUE: IV Contrast: 100ml Isovue 370 Axial images obtained with sagittal and coronal reformats. All CT scans at the facility use one or more dose reduction, viz: automated exposure control, ma/kV adjustment per patient size (including targeted exams where dose is matched to indication, i.e. head), or iterative reconstruction technique. FINDINGS: Again identified is a penetrating ulcer of the distal thoracic/proximal abdominal aorta. There is extensive atherosclerosis of the entire aorta. There is subsegmental atelectasis of the lingula. Left lower lobe granuloma. There is a partially thrombosed 4.7 cm abdominal aortic aneurysm again identified. There is severe vascular calcification of the aortic bifurcation with critical stenosis of the origin of the right common iliac artery which is heavily calcified. Right internal iliac artery is occluded. Left internal iliac artery is patent. There is high-grade stenosis of the left external iliac artery. There is high-grade stenosis of the left renal artery. Right renal artery is patent. Celiac, SMA are patent. There is calcific atherosclerosis of the splenic artery. NUZHAT is not visualized and is likely occluded. There is persistent stable main pancreatic duct dilatation measuring 4 millimeters. No hepatic or splenic lesions are identified except for a splenic granuloma. The remainder of the pancreas appears unremarkable. Visualized extent of the bowel appears unremarkable. There is no definite lymphadenopathy. There is mild lumbar scoliosis. There is lumbar spondylosis with lumbar stenosis most prominent at the lower lumbar levels. No soft tissue lesions identified. IMPRESSION: 1. Partially thrombosed 4.7 cm abdominal aortic aneurysm. Referral to vascular surgery is recommended. 2. Critical stenosis of the origin of right common iliac artery. 3. Occlusion of right internal iliac artery. 4. Penetrating ulcer of distal thoracic/proximal abdominal aorta. Referral to vascular surgery is recommended. 5. NUZHAT is not visualized and may be chronically occluded. 6. High-grade stenosis of left external iliac artery. 7. High-grade stenosis of left renal artery. 8. Mild diffuse main pancreatic duct dilatation which could relate to ampullary stenosis or ampullary lesion. Further evaluation could be obtained with ERCP. Dictated by: Elisa Flynn MD 03/13/2021 14:33 Elisa Flynn MD in [place] 03/13/2021 14:33
== END ==
PROVIDERS: PCP Emergency Medicine; Visit Provider Physician Assistant
DX: I71.4 Abdominal aortic aneurysm, without rupture (principal)
CPT/HCPCS: 74175; Q9967

== ENCOUNTER → 2021-03-27 08:59 | Day surgery (SDC) | payer MEDICARE, MEDICAID, SELFPAY ==
[2021-03-27] VITALS (19 sets, daily range): BP systolic 97–159; BP diastolic 55–102; PULSE 64–120; RESP 15–18; TEMP 36.6; O2SAT 90–96; BMI 16.0; BMI 16.3
--- NOTE | 2021-03-27 07:06 | IR_ITS ---
APPROVED REPORT Patient Location: Outpatient Director Specialty: DON Gasca RT (R) PROCEDURES 1. Right retrograde femoral angiogram 2. Angioplasty to the right common iliac artery 3. Left heart catheterization 4. Left ventriculogram 5. Selective coronary angiogram 6. Drug-eluting stent deployment to the ostial proximal mid and distal dominant right coronary 7. Drug-eluting stent deployment to the proximal mid LAD INDICATION Peripheral artery disease, Right common iliac artery atherosclerotic plaque, Berta claudication class V right lower extremity with poorly healing ulcer, Coronary artery disease, Angina pectoris class IV Informed consent was obtained prior to the procedure. COMPLICATIONS NONE Estimated Blood Loss: LESS THAN 10 ML TECHNIQUE One percent lidocaine was used to anesthetize the right groin. The right femoral artery was accessed via the Seldinger technique. A 5 Czech sheath was placed in the right femoral artery. Retrograde angiography demonstrated a severe ostial right common iliac artery stenosis. Initially it was decided to perform left heart catheterization however the JL4 catheter would not pass through the right common iliac artery stenosis after an advantage wire was used to negotiate through the severe to critical stenosis. At this point therapeutic heparin was administered giving a therapeutic ACT and the short Czech sheath was exchanged for a long 6 Czech Brite-tip sheath. The sheath was placed right outside the common iliac artery stenosis and a 5 mm x 20 mm balloon was deployed at 12 nick reducing the critical stenosis. An additional 6 mm x 20 mm balloon was then taken to 14 nick to further post dilate. Given the excellent angiographic results it was decided not to stent the right common iliac artery. At this point a JL4 JR4 catheter used to perform diagnostic left heart catheterization left ventriculogram and selective coronary angiogram. At the end the diagnostic angiogram a 6 Czech RUDOLPH guide catheter was used to intubate the right coronary artery and a Choice PT extra-support wire was placed distally. A 3 mm x 27 mm balloon was deployed at 20 nick up and down the right coronary to predilate. Following this a 3 mm x 38 mm resolute [place] stent was deployed at 20 nick in the distal right coronary artery extending backward. An additional 3 mm x 26 mm resolute [place] stent was then placed proximal to this at 20 nick. There was a hazy stenosis immediately proximal to the stent I was concerned may been a dissection therefore an additional 3 mm x 12 mm resolute [place] stent was placed in the ostial segment overlapping the 26 mm stent and then deployed at 24 nick. KASH-3 flow was present before and after the procedure. After achieving excellent angiographic results the apparatus was removed the sheath was and an EBU 3.5 guide catheter was placed in the left main artery. A Choice PT extra-support wire was placed distally and a 3 mm x 20 mm balloon was deployed at 12 and then 14 nick to predilate the stenosis. Following this a 2.75 x 38 mm resolute Clifton stent was deployed in the proximal to mid LAD at 20 nick reducing the critical stenosis to 0%. KASH-3 flow was present before and after the procedure. The diagonal arteries had wide patency with no angiographic severe stenosis. At the end of the procedure the apparatus was removed the groin was reprepped gloves were changed sheath was removed good hemostasis was achieved using Perclose device patient was transferred to the postop already in stable condition ANGIOGRAPHIC RESULTS The left main artery Normal The left anterior descending artery Is a proximal eccentric 20 to 30% stenosis followed by an 80% stenosis which exte
[2021-03-27 09:44] LABS: Coronavirus 19, PCR Not Detected (NotDetected); Influenza A, PCR Not Detected (NotDetected); Influenza B, PCR Not Detected (NotDetected)
[2021-03-27 09:47] LABS: Basophils # 0.2 K/mm3 (0-0.2); Basophils % 2.3 % (0.1-2.0); Eosinophils # 0.1 K/mm3 (0.0-0.4); Hematocrit 51.5 % (37.0-47.0); Hemoglobin 16.7 g/dL (12.2-16.2); Lymphocytes # 3.3 K/mm3 (0.7-4.5); Lymphocytes % 49.7 % (10-50); Mean Corpuscular HGB Conc 32.4 g/dL (31.8-35.4); Mean Corpuscular Hemoglobin 32.3 pg (27.0-31.2); Mean Corpuscular Volume 99.6 fl (81-99); Monocytes # 0.3 K/mm3 (0.1-1.0); Neutrophils # 2.7 K/mm3 (1.8-7.8); Platelet Count 354 K/mm3 (142-424); Red Blood Count 5.17 M/mm3 (4.20-5.40); Red Cell Distribution Width 15.1 % (11.5-17.5); White Blood Count 6.6 K/mm3 (4.8-10.8)
[2021-03-27 10:09] LABS: Anion Gap 13.6 mEq/L (5-15); Blood Urea Nitrogen 12 mg/dl (7-17); Calcium 9.2 mg/dl (8.4-10.2); Carbon Dioxide 27 mmol/L (22.0-30.0); Chloride 101 mmol/L (98-107); Creatinine Clearance Estimated 38 mL/min (50-200); Estimated Glomerular Filt Rate 123 ml/min (>60); GFR (African American) 149 ML/MIN (>60); Glucose 115 mg/dl (74-100); Potassium 3.6 mmoL/L (3.5-5.1); Sodium 138 mmol/L (136-145)
[2021-03-27 15:13] LABS: CATHL Activated Clotting Time 330 SEC (74-125)
[2021-03-27 15:15] LABS: CATHL Activated Clotting Time > 400 SEC (74-125)
[2021-03-28] VITALS: BP 113/60; PULSE 70; PULSE 77; RESP 18; TEMP 36.6; O2SAT 96
[2021-03-28 04:00] VITALS: BP 106/64; PULSE 62; PULSE 80; RESP 16; TEMP 36.6; O2SAT 96
--- NOTE | 2021-03-28 05:24 | PC.NURSE ---
Pt has c/o chronic back pain 3x t/o shift. Pt administered pain med per JUL. Pt has not voiced any other complaints to staff. Cath site corry has remained CDI.
[2021-03-28 05:30] VITALS: BMI 16.3
[2021-03-28 07:33] LABS: Basophils # 0.1 K/mm3 (0-0.2); Basophils % 0.8 % (0.1-2.0); Eosinophils # 0.1 K/mm3 (0.0-0.4); Eosinophils % 1.3 % (0.1-12.0); Hematocrit 42.3 % (37.0-47.0); Lymphocytes # 2.1 K/mm3 (0.7-4.5); Lymphocytes % 24.4 % (10-50); Mean Corpuscular HGB Conc 32.4 g/dL (31.8-35.4); Mean Corpuscular Hemoglobin 31.9 pg (27.0-31.2); Mean Corpuscular Volume 98.7 fl (81-99); Mean Platelet Volume 8.2 fl (7.4-10.4); Monocytes # 0.5 K/mm3 (0.1-1.0); Neutrophils # 5.7 K/mm3 (1.8-7.8); Neutrophils % 67.4 % (37.0-80.0); Platelet Count 259 K/mm3 (142-424); Red Blood Count 4.28 M/mm3 (4.20-5.40); Red Cell Distribution Width 15.3 % (11.5-17.5); White Blood Count 8.5 K/mm3 (4.8-10.8)
[2021-03-28 07:40] LABS: Anion Gap 6.8 mEq/L (5-15); Blood Urea Nitrogen 14 mg/dl (7-17); Calcium 8.3 mg/dl (8.4-10.2); Carbon Dioxide 27 mmol/L (22.0-30.0); Chloride 108 mmol/L (98-107); Creatinine Clearance Estimated 38 mL/min (50-200); Estimated Glomerular Filt Rate 123 ml/min (>60); GFR (African American) 149 ML/MIN (>60); Glucose 116 mg/dl (74-100); Potassium 3.8 mmoL/L (3.5-5.1); Sodium 138 mmol/L (136-145)
[2021-03-28 07:54] LABS: Hemoglobin 13.9 g/dL (12.2-16.2)
== END ==
LOC: CATHLAB 09:00 → 2ND 13:25 → CATHLAB 10-13 00:15
PROVIDERS: PCP Emergency Medicine; Visit Provider Internal Medicine
DX: I25.119 Atherosclerotic heart disease of native coronary artery with unspecified angina pectoris (principal); I70.201 Unspecified atherosclerosis of native arteries of extremities, right leg; I65.29 Occlusion and stenosis of unspecified carotid artery; I71.4 Abdominal aortic aneurysm, without rupture; J44.9 Chronic obstructive pulmonary disease, unspecified; Z20.822 Contact with and (suspected) exposure to COVID-19; R93.5 Abnormal findings on diagnostic imaging of other abdominal regions, including retroperitoneum; Z72.0 Tobacco use; I25.10 Atherosclerotic heart disease of native coronary artery without angina pectoris; I10 Essential (primary) hypertension; Z71.6 Tobacco abuse counseling
CPT/HCPCS: 36415; 37221; 80048; 85025; 85347; 92928; 93458; 99152; 99153; C1725; C1760; C1769; C1874; C1876; C1894; C9600; C9803; G0378; J1644; Q9967; U0003; U0005

== ENCOUNTER → 2021-04-03 09:30 | Outpatient (CLI) | payer MEDICARE, MEDICAID, SELFPAY | PROVIDERS: PCP Emergency Medicine; Visit Provider Internal Medicine Cardiovascular Disease | DX: I65.29 Occlusion and stenosis of unspecified carotid artery (principal); I71.4 Abdominal aortic aneurysm, without rupture; I73.9 Peripheral vascular disease, unspecified; J44.9 Chronic obstructive pulmonary disease, unspecified; R00.0 Tachycardia, unspecified; R06.00 Dyspnea, unspecified; R93.5 Abnormal findings on diagnostic imaging of other abdominal regions, including retroperitoneum; Z72.0 Tobacco use | CPT/HCPCS: 93306 ==

== ENCOUNTER → 2021-05-06 13:46 | Outpatient (CLI) | payer MEDICARE, MEDICAID, SELFPAY ==
[2021-05-06 14:12] LABS: Amphetamine/Metha Screen,Urine Negative ng/ml (<1000)
[2021-05-06 14:13] LABS: Barbiturates Screen,Urine Negative ng/ml (<200)
[2021-05-06 14:14] LABS: Benzodiazepines Screen,Urine Negative ng/ml (<200); Cannabinoid Screen,Urine Negative ng/ml (<50)
[2021-05-06 14:15] LABS: Cocaine Screen,Urine Negative ng/ml (<300); Methadone Screen,Urine Negative ng/ml (<300)
[2021-05-06 14:18] LABS: Opiate Screen,Urine Positive ng/ml (<300)
[2021-05-06 14:19] LABS: Phencyclidine Screen,Urine Negative ng/ml (<25)
== END ==
PROVIDERS: Visit Provider Emergency Medicine
DX: M47.896 Other spondylosis, lumbar region (principal)
CPT/HCPCS: 80305

== ENCOUNTER → 2021-08-27 13:51 | Outpatient (CLI) | payer MEDICARE, MEDICAID, SELFPAY ==
[2021-08-27 15:03] LABS: Blood Urea Nitrogen 25 mg/dl (7-17); Estimated Glomerular Filt Rate 83 ml/min (>60); GFR (African American) 101 ML/MIN (>60)
== END ==
PROVIDERS: PCP Emergency Medicine; Visit Provider Surgery
DX: I71.4 Abdominal aortic aneurysm, without rupture (principal)
CPT/HCPCS: 36415; 82565; 84520

== ENCOUNTER → 2021-09-02 09:32 | Outpatient (CLI) | payer MEDICARE, MEDICAID, SELFPAY ==
[2021-09-02 18:29] LABS: Amphetamine/Metha Screen,Urine Negative ng/ml (<1000); Barbiturates Screen,Urine Negative ng/ml (<200)
[2021-09-02 18:30] LABS: Benzodiazepines Screen,Urine Negative ng/ml (<200); Cannabinoid Screen,Urine Negative ng/ml (<50)
[2021-09-02 18:31] LABS: Cocaine Screen,Urine Negative ng/ml (<300)
[2021-09-02 18:32] LABS: Methadone Screen,Urine Negative ng/ml (<300); Opiate Screen,Urine Negative ng/ml (<300)
[2021-09-02 18:33] LABS: Phencyclidine Screen,Urine Negative ng/ml (<25)
== END ==
PROVIDERS: Visit Provider Emergency Medicine
DX: M47.896 Other spondylosis, lumbar region (principal)
CPT/HCPCS: 80305

== ENCOUNTER → 2021-09-03 12:54 | Outpatient (CLI) | payer MEDICARE, MEDICAID, SELFPAY ==
--- NOTE | 2021-09-03 12:58 | CT_ITS ---
FINAL REPORT CLINICAL HISTORY: AAA,ULCER OF AORTA,ANXIETY,weight loss, known abdominal aortic aneurysm, severe back pain which radiates anteriorly COMPARISON: March 13, 2021 FINDINGS: Post contrast axial imaging of the abdomen and pelvis was obtained and reviewed. Coronal and sagittal reformatted images were submitted. This study was performed with techniques to keep radiation doses as low as reasonably achievable (ALARA). Individualized dose reduction techniques using automated exposure control or adjustment of mA and/or kV according to the patient's size were employed. CTA: There has been interval aortic stent graft. The graft is patent. The aneurysm sac previously measured 4.6 cm and demonstrates no significant interval change. The celiac axis, superior mesenteric artery and inferior mesenteric artery are patent without stenosis. There is no evidence of renal artery stenosis. Review of the remaining abdomen and pelvis demonstrates lingular atelectasis. A calcified granuloma is seen in the left lung base. The gallbladder is present. There are 3 small enhancing foci a in the right hepatic lobe that are nonspecific and may represent hemangiomas. The spleen, pancreas, adrenal glands and kidneys are unremarkable. A large amount of retained stool is present. The urinary bladder is unremarkable. IMPRESSION: Interval aortic stent graft placement with a patent graft. No significant interval change in size of the aneurysm sac. Nonspecific small enhancing foci in the liver may represent hemangiomas. Large amount of retained stool. Reviewed, Interpreted and Dictated by Jj Darling III, MD Transcribed by Edwin Hines Authenticated by Jj Darling III, MD on 09/03/2021 02:07:41 PM [facility]
== END ==
PROVIDERS: PCP Emergency Medicine; Visit Provider Surgery
DX: I71.4 Abdominal aortic aneurysm, without rupture (principal)
CPT/HCPCS: 74174; Q9967

== ENCOUNTER → 2021-10-29 06:51 | Outpatient (CLI) | payer MEDICARE, MEDICAID, SELFPAY | PROVIDERS: PCP Emergency Medicine; Visit Provider Emergency Medicine | DX: M47.896 Other spondylosis, lumbar region (principal) ==

== ENCOUNTER → 2021-12-23 06:21 | Outpatient (CLI) | payer MEDICARE, MEDICAID, SELFPAY ==
[2021-12-23 18:54] LABS: Amphetamine/Metha Screen,Urine Negative ng/ml (<1000); Barbiturates Screen,Urine Negative ng/ml (<200)
[2021-12-23 18:56] LABS: Benzodiazepines Screen,Urine Negative ng/ml (<200)
[2021-12-23 18:57] LABS: Cannabinoid Screen,Urine Negative ng/ml (<50)
[2021-12-23 18:58] LABS: Cocaine Screen,Urine Negative ng/ml (<300); Methadone Screen,Urine Negative ng/ml (<300)
[2021-12-23 18:59] LABS: Opiate Screen,Urine Positive ng/ml (<300); Phencyclidine Screen,Urine Negative ng/ml (<25)
== END ==
PROVIDERS: PCP Emergency Medicine; Visit Provider Emergency Medicine
DX: M47.896 Other spondylosis, lumbar region (principal)
CPT/HCPCS: 80305

== ENCOUNTER → 2022-04-28 13:45 | Outpatient (CLI) | payer MEDICARE, MEDICAID, SELFPAY ==
[2022-04-28 17:48] LABS: Amphetamine/Metha Screen,Urine Negative ng/ml (<1000)
[2022-04-28 17:49] LABS: Barbiturates Screen,Urine Negative ng/ml (<200)
[2022-04-28 17:50] LABS: Benzodiazepines Screen,Urine Negative ng/ml (<200); Cannabinoid Screen,Urine Negative ng/ml (<50)
[2022-04-28 17:51] LABS: Cocaine Screen,Urine Negative ng/ml (<300)
[2022-04-28 17:52] LABS: Methadone Screen,Urine Negative ng/ml (<300); Opiate Screen,Urine Positive ng/ml (<300)
[2022-04-28 17:53] LABS: Phencyclidine Screen,Urine Negative ng/ml (<25)
== END ==
PROVIDERS: PCP Emergency Medicine; Visit Provider Emergency Medicine
DX: M47.896 Other spondylosis, lumbar region (principal)
CPT/HCPCS: 80305

== ENCOUNTER → 2022-07-06 15:48 | Outpatient (CLI) | payer MEDICARE, MEDICAID, SELFPAY ==
[2022-07-06 16:00] LABS: Amphetamine/Metha Screen,Urine Negative ng/ml (<1000); Benzodiazepines Screen,Urine Negative ng/ml (<200)
[2022-07-06 16:01] LABS: Barbiturates Screen,Urine Negative ng/ml (<200)
[2022-07-06 16:02] LABS: Basophils # 0.1 K/mm3 (0-0.2); Basophils % 1.6 % (0.1-2.0); Eosinophils # 0.3 K/mm3 (0.0-0.4); Eosinophils % 3.7 % (0.1-12.0); Hemoglobin 15.1 g/dL (12.2-16.2); Lymphocytes # 4.1 K/mm3 (0.7-4.5); Lymphocytes % 53.7 % (10-50); Mean Corpuscular HGB Conc 31.5 g/dL (31.8-35.4); Mean Corpuscular Hemoglobin 30.8 pg (27.0-31.2); Mean Corpuscular Volume 97.7 fl (81-99); Mean Platelet Volume 8.5 fl (7.4-10.4); Monocytes # 0.6 K/mm3 (0.1-1.0); Monocytes % 8.4 % (1.7-9.3); Neutrophils # 2.5 K/mm3 (1.8-7.8); Neutrophils % 32.5 % (37.0-80.0); Platelet Count 218 K/mm3 (142-424); Red Blood Count 4.91 M/mm3 (4.20-5.40); Red Cell Distribution Width 14.1 % (11.5-17.5); White Blood Count 7.6 K/mm3 (4.8-10.8)
[2022-07-06 16:02] LABS: Cannabinoid Screen,Urine Negative ng/ml (<50); Cocaine Screen,Urine Negative ng/ml (<300)
[2022-07-06 16:03] LABS: Methadone Screen,Urine Negative ng/ml (<300); Phencyclidine Screen,Urine Negative ng/ml (<25)
[2022-07-06 16:04] LABS: Opiate Screen,Urine Positive ng/ml (<300)
[2022-07-06 16:09] LABS: Alanine Aminotransferase 22 U/L (12-78); Albumin Level 4.2 g/dl (3.5-5.0); Albumin/Globulin Ratio 1.2 (1.1-1.8); Alkaline Phosphatase 74 U/L (38-126); Anion Gap 7.4 mEq/L (5-15); Aspartate Amino Transferase 37 U/L (14-36); Bilirubin,Total 0.4 mg/dl (0.2-1.3); Blood Urea Nitrogen 24 mg/dl (7-17); Calcium 8.5 mg/dl (8.4-10.2); Carbon Dioxide 26 mmol/L (22.0-30.0); Chloride 108 mmol/L (98-107); Chol/HDL Ratio 3.1 (1-3.5); Cholesterol 123 mg/dl (140-200); Estimated Glomerular Filt Rate 83 ml/min (>60); GFR (African American) 101 ML/MIN (>60); Globulin 3.5 g/dL (1.3-3.2); Glucose 111 mg/dl (74-100); HDL Cholesterol 40 mg/dl (40-60); Potassium 4.4 mmoL/L (3.5-5.1); Sodium 137 mmol/L (136-145); Total Protein,Serum 7.7 g/dl (6.3-8.2); Triglycerides 164 mg/dl (30-150); VLDL Cholesterol 33 mg/dL (0-40)
[2022-07-06 16:14] LABS: MANUAL DIFFERENTIAL MANUAL DIFFERENTIAL (MANUAL DIFF)
[2022-07-06 16:20] LABS: Direct LDL Cholesterol 54.31 mg/dL (100-129)
[2022-07-06 16:21] LABS: 25-OH Vitamin D, Total 29.7 ng/mL (30-100)
[2022-07-06 16:26] LABS: Free T4 (Free Thyroxine) 1.21 ng/dl (0.78-2.19)
[2022-07-06 16:42] LABS: Thyroid Stimulating Hormone 6.93 uIU/mL (0.465-4.68)
[2022-07-06 17:02] LABS: Vitamin B12 536 pg/mL (239-931)
[2022-07-06 18:41] LABS: Eosinophils % 1 % (0-3); Lymphocytes % 58 % (10-50); Monocytes % 12 % (2-9); Neutrophils % 29 % (42-76); Platelet Estimate Normal; RBC Morphology Normal; Total Cells Counted 100
== END ==
LOC: LAB.DROPOF 15:49
PROVIDERS: PCP Emergency Medicine; Visit Provider Emergency Medicine
DX: M47.896 Other spondylosis, lumbar region (principal); I65.29 Occlusion and stenosis of unspecified carotid artery; R06.00 Dyspnea, unspecified; M54.50 Low back pain, unspecified; R53.83 Other fatigue; E55.9 Vitamin D deficiency, unspecified
CPT/HCPCS: 80053; 80061; 80305; 82306; 82607; 84439; 84443; 85007; 85025

== ENCOUNTER → 2022-08-31 23:18 | Outpatient (CLI) | payer MEDICARE, MEDICAID, SELFPAY ==
[2022-08-31 20:08] LABS: Amphetamine/Metha Screen,Urine Negative ng/ml (<1000); Barbiturates Screen,Urine Negative ng/ml (<200)
[2022-08-31 20:09] LABS: Benzodiazepines Screen,Urine Negative ng/ml (<200)
[2022-08-31 20:10] LABS: Cannabinoid Screen,Urine Negative ng/ml (<50); Cocaine Screen,Urine Negative ng/ml (<300)
[2022-08-31 20:11] LABS: Methadone Screen,Urine Negative ng/ml (<300)
[2022-08-31 20:12] LABS: Opiate Screen,Urine Positive ng/ml (<300); Phencyclidine Screen,Urine Negative ng/ml (<25)
== END ==
PROVIDERS: PCP Emergency Medicine; Visit Provider Emergency Medicine
DX: M47.896 Other spondylosis, lumbar region (principal)
CPT/HCPCS: 80305

== ENCOUNTER → 2022-10-22 13:35 | Outpatient (CLI) | payer MEDICARE, MEDICAID, SELFPAY ==
[2022-10-22 14:12] LABS: Amphetamine/Metha Screen,Urine Negative ng/ml (<1000)
[2022-10-22 14:13] LABS: Barbiturates Screen,Urine Negative ng/ml (<200); Benzodiazepines Screen,Urine Negative ng/ml (<200)
[2022-10-22 14:14] LABS: Cannabinoid Screen,Urine Negative ng/ml (<50)
[2022-10-22 14:15] LABS: Cocaine Screen,Urine Negative ng/ml (<300); Methadone Screen,Urine Negative ng/ml (<300)
[2022-10-22 14:16] LABS: Opiate Screen,Urine Positive ng/ml (<300)
[2022-10-22 14:17] LABS: Phencyclidine Screen,Urine Negative ng/ml (<25)
== END ==
PROVIDERS: PCP Emergency Medicine; Visit Provider Emergency Medicine
DX: M47.896 Other spondylosis, lumbar region (principal)
CPT/HCPCS: 80305

== ENCOUNTER → 2022-12-24 13:30 | Outpatient (CLI) | payer MEDICARE, SELFPAY ==
[2022-12-24 18:44] LABS: Amphetamine/Metha Screen,Urine Negative ng/ml (<1000)
[2022-12-24 18:45] LABS: Barbiturates Screen,Urine Negative ng/ml (<200)
[2022-12-24 18:47] LABS: Benzodiazepines Screen,Urine Negative ng/ml (<200); Cannabinoid Screen,Urine Negative ng/ml (<50)
[2022-12-24 18:48] LABS: Cocaine Screen,Urine Negative ng/ml (<300)
[2022-12-24 18:49] LABS: Methadone Screen,Urine Negative ng/ml (<300); Opiate Screen,Urine Positive ng/ml (<300)
[2022-12-24 18:50] LABS: Phencyclidine Screen,Urine Negative ng/ml (<25)
== END ==
PROVIDERS: PCP Emergency Medicine; Visit Provider Emergency Medicine
DX: M47.896 Other spondylosis, lumbar region (principal); Z79.899 Other long term (current) drug therapy
CPT/HCPCS: 80305

== ENCOUNTER → 2023-02-21 12:21 | Outpatient (CLI) | payer MEDICARE, SELFPAY ==
[2023-02-21 20:50] LABS: Amphetamine/Metha Screen,Urine Negative ng/ml (<1000); Barbiturates Screen,Urine Negative ng/ml (<200)
[2023-02-21 20:51] LABS: Benzodiazepines Screen,Urine Negative ng/ml (<200)
[2023-02-21 20:52] LABS: Cannabinoid Screen,Urine Negative ng/ml (<50); Cocaine Screen,Urine Negative ng/ml (<300)
[2023-02-21 20:53] LABS: Methadone Screen,Urine Negative ng/ml (<300)
[2023-02-21 20:54] LABS: Opiate Screen,Urine Positive ng/ml (<300)
[2023-02-21 20:55] LABS: Phencyclidine Screen,Urine Negative ng/ml (<25)
== END ==
PROVIDERS: PCP Emergency Medicine; Visit Provider Emergency Medicine
DX: M47.896 Other spondylosis, lumbar region (principal)
CPT/HCPCS: 80305

== ENCOUNTER → 2023-04-19 16:11 | Outpatient (CLI) | payer MEDICARE, SELFPAY ==
[2023-04-19 16:17] LABS: Microscopic, Urine URINE MICROSCOPIC (MICROSCOPIC)
[2023-04-19 16:48] LABS: Basophils % 0.6 % (0.1-2.0); Eosinophils % 0.5 % (0.1-12.0); Hematocrit 53.9 % (37.0-47.0); Hemoglobin 17.7 g/dL (12.2-16.2); Lymphocytes # 1.1 K/mm3 (0.7-4.5); Lymphocytes % 20.2 % (10-50); Mean Corpuscular HGB Conc 32.8 g/dL (31.8-35.4); Mean Corpuscular Hemoglobin 30.9 pg (27.0-31.2); Mean Corpuscular Volume 94.1 fl (81-99); Mean Platelet Volume 7.6 fl (7.4-10.4); Monocytes # 0.1 K/mm3 (0.1-1.0); Neutrophils # 4.2 K/mm3 (1.8-7.8); Neutrophils % 76.7 % (37.0-80.0); Platelet Count 198 K/mm3 (142-424); Red Blood Count 5.73 M/mm3 (4.20-5.40); White Blood Count 5.4 K/mm3 (4.8-10.8)
[2023-04-19 17:46] LABS: Appearance,Urine CLEAR (Clear); Blood, Urine 1+ (Negative); Color,Urine YELLOW (Yellow); Glucose,Urine (UA) Negative (Negative); Ketones,Urine Negative (Negative); Leukocyte Esterase,Urine Negative (Negative); Nitrate,Urine Negative (Negative); Protein,Urine TRACE (Negative); Specific Gravity, Urine 1.025 (1.005-1.030); Urobilinogen,Urine 0.2 EU/dl (0.2)
[2023-04-19 18:01] LABS: Bilirubin,Urine 1+ (Negative)
[2023-04-19 18:06] LABS: Alanine Aminotransferase 34 U/L (12-78); Albumin Level 4.7 g/dl (3.5-5.0); Alkaline Phosphatase 95 U/L (38-126); Aspartate Amino Transferase 45 U/L (14-36); Bilirubin,Direct 0.3 mg/dl (0.0-0.4); Bilirubin,Indirect 0.1 mg/dL (0.0-0.9); Bilirubin,Total 0.4 mg/dl (0.2-1.3); Bilirubin,Unconjugated 0.1 mg/dL (0.0-1.1); Blood Urea Nitrogen 18 mg/dl (7-17); Carbon Dioxide 23 mmol/L (22.0-30.0); Chloride 105 mmol/L (98-107); Cholesterol 145 mg/dl (140-200); Estimated Glomerular Filt Rate 83 ml/min (>60); GFR (African American) 100 ML/MIN (>60); Glucose 134 mg/dl (74-100); Magnesium 1.8 mg/dl (1.6-2.3); RBC,Urine Occasional #/hpf (0-3); Squamous Epithelial Cell,Urine Occasional #/hpf (0-5); Total Protein,Serum 8.8 g/dl (6.3-8.2); Triglycerides 228 mg/dl (30-150); VLDL Cholesterol 46 mg/dL (0-40)
[2023-04-19 18:09] LABS: Anion Gap 15.4 mEq/L (5-15); Chol/HDL Ratio 3.5 (1-3.5); HDL Cholesterol 41 mg/dl (40-60); Potassium 4.4 mmoL/L (3.5-5.1); Sodium 139 mmol/L (136-145)
[2023-04-19 18:17] LABS: Direct LDL Cholesterol 64.57 mg/dL (100-129)
[2023-04-19 18:23] LABS: Free T4 (Free Thyroxine) 1.38 ng/dl (0.78-2.19)
[2023-04-19 18:37] LABS: Thyroid Stimulating Hormone 1.22 uIU/mL (0.465-4.68)
== END ==
LOC: LAB 16:12
PROVIDERS: PCP Internal Medicine; Visit Provider Internal Medicine
DX: I10 Essential (primary) hypertension (principal); I25.10 Atherosclerotic heart disease of native coronary artery without angina pectoris; I71.40 Abdominal aortic aneurysm, without rupture, unspecified; I73.9 Peripheral vascular disease, unspecified; R00.0 Tachycardia, unspecified; R00.2 Palpitations; R06.00 Dyspnea, unspecified; F41.9 Anxiety disorder, unspecified; M54.9 Dorsalgia, unspecified; I65.29 Occlusion and stenosis of unspecified carotid artery
CPT/HCPCS: 36415; 80048; 80061; 80076; 81001; 82043; 83735; 84439; 84443; 85025

== ENCOUNTER 2023-06-07 14:58 | Emergency (ER) | payer MEDICARE, MEDICAID, SELFPAY ==
[2023-06-07 14:58] VITALS: BP 156/84; PULSE 96; RESP 20; TEMP 36.6; O2SAT 99
--- NOTE | 2023-06-07 15:09 | ED_ITS ---
Discharge Plan Disposition Patient Disposition: Home, Self-Care Prescriptions Prescriptions: No Action aspirin 81 mg tablet,delayed release (DR/EC) 81 mg PO DAILY Qty: 90 0RF hydrochlorothiazide 25 mg tablet 25 mg PO DAILY Qty: 90 3RF albuterol sulfate 90 mcg/actuation HFA aerosol inhaler 2 puff INHALATION TID Qty: 8.5 2RF clopidogrel 75 mg tablet See Rx Instructions .ROUTE .COMPLEX Qty: 90 1RF Dose Instruction: TAKE 1 TABLET BY MOUTH ONCE DAILY-BLOOD THINNER Rx Instructions: TAKE 1 TABLET BY MOUTH ONCE DAILY-BLOOD THINNER metoprolol succinate 25 mg tablet extended release 24 hr See Rx Instructions .ROUTE .COMPLEX Qty: 90 2RF Dose Instruction: TAKE 1 TABLET BY MOUTH ONCE DAILY Rx Instructions: TAKE 1 TABLET BY MOUTH ONCE DAILY clonazepam 0.5 mg tablet 0.5 mg PO BID PRN (Reason: Anxiety) Qty: 60 1RF gabapentin 600 mg tablet 600 mg PO TID Qty: 90 1RF hydrocodone-acetaminophen 10-325 mg tablet 1 tab PO Q8H PRN (Reason: pain) 30 Days Qty: 90 0RF varenicline [Chantix Starting Month Box] 0.5 mg (11)- 1 mg (42) tablets,dose pack See Rx Instructions PO PER PKG DIR Qty: 53 0RF Rx Instructions: PO PER PKG DIR levothyroxine 25 mcg tablet See Rx Instructions .ROUTE .COMPLEX Qty: 90 0RF Dose Instruction: TAKE 1 TABLET BY MOUTH ONCE DAILY- PT IS TO TAKE 20 MINUTES BEFORE EATING OF THE MORNING. Rx Instructions: TAKE 1 TABLET BY MOUTH ONCE DAILY- PT IS TO TAKE 20 MINUTES BEFORE EATING OF THE MORNING. rosuvastatin 20 mg tablet See Rx Instructions .ROUTE .COMPLEX Qty: 90 2RF Dose Instruction: TAKE 1 TABLET BY MOUTH DAILY Rx Instructions: TAKE 1 TABLET BY MOUTH DAILY ergocalciferol (vitamin D2) 1,250 mcg (50,000 unit) capsule 50,000 unit PO QWEEK Qty: 10 2RF Trelegy Ellipta 100-62.5-25 mcg blister with device 1 inh inhalation DAILY Qty: 60 3RF losartan 50 mg tablet 50 mg PO DAILY Qty: 30 1RF albuterol sulfate 2.5 MG/NEB solution for nebulization 2.5 mg INHALATION Q6H PRN (Reason: soa) Referrals Follow up/Referrals: Darek Rose DO [Primary Care Provider] - See instructions Activity Restrictions/Add. Instructions Additional Instructions/Restrictions: Continue taking her blood pressure medications as prescribed. As long as your blood pressure does not stay significantly elevated and you are not having sym ptoms when it is elevated, you do not need to come to the emergency department. Continue working with your family doctor for blood pressure medications that work for you. Call your family doctor to establish care for this visit to the emergency department and schedule follow-up within 48 hours to ensure improvement. If you have any worsening of your condition or any other concerning signs or symptoms, return to the emergency department or your primary care doctor for further evaluation. Clinical Impressions Clinical Impression: Asymptomatic hypertension Discharge ED Provider: Markus Byrne General Adult HPI <Sammi Sanchez DO - Last Filed: 06/07/23 15:09> General Chief complaint: Recheck/Abnormal Lab/Rx Stated complaint: bp Time Seen by Provider: 06/07/23 15:03 Related Data Home Medications Medication Instructions Recorded Confirmed albuterol sulfate 2.5 mg/3 mL 2.5 mg inhalation Q6H PRN soa 12/29/18 06/07/23 (0.083 %) solution for nebulization Previous Rx's Medication Instructions Recorded aspirin 81 mg tablet,delayed 81 mg PO DAILY thinner #90 tabs 09/19/20 release albuterol sulfate 90 mcg/actuation 2 puff inhalation TID lungs #8.5 10/22/22 aerosol inhaler grams clopidogrel 75 mg tablet See Rx Instructions .Route 10/22/22 .COMPLEX #90 tabs metoprolol succinate 25 mg See Rx Instructions .Route 10/22/22 tablet,extended release 24 hr .COMPLEX #90 tabs levothyroxine 25 mcg tablet See Rx Instructions .Route 04/05/23 .COMPLEX #90 tabs rosuvastatin 20 mg tablet See Rx Instructions .Route 04/13/23 .COMPLEX #90 tabs ergocalciferol (vitamin D2) 1,250 50,000 unit PO QWEEK Supplement 04/20/23 mcg (50,000 unit) capsule #10 caps fluticasone fur. 100 mcg-umeclid 1 inh inhalation DAILY COPD #60 ea 04/20/23 62.5 mcg-vilant 25 mcg inhalat.powder (Trelegy Ellipta) hydrochlorothiazide 25 mg tablet 25 mg PO DAILY #90 tabs 04/20/23 losartan 50 mg tablet 50 mg PO DAILY bp #30 tabs 04/20/23 clonazepam 0.5 mg tablet 0.5 mg PO BID PRN Anxiety #60 tabs 06/07/23 gabapentin 600 mg tablet 600 mg PO TID #90 tabs 06/07/23 hydrocodone 10 mg-acetaminophen 1 tab PO Q8H PRN pain 30 days #90 06/07/23 325 mg tablet tabs varenicline 0.5 mg (11)-1 mg (42) See Rx Instructions PO PER PKG DIR 06/07/23 tablets in a dose pack (Chantix #53 tabs Starting Month Box) Allergies Allergy/AdvReac Type Severity Reaction Status Date / Time Sulfa (Sulfonamide Allergy Mild Anaphylaxis Verified 06/07/23 14:35 Antibiotics) <Markus Byrne MD - Last Filed: 06/07/23 15:20> History of Present Illness HPI narrative: 68-year-old female history of HTN hyperlipidemia, CAD AAA, COPD not on surgeon presenting with asymptomatic hypertension. She has whitecoat syndrome, went to her family doctor today. Systolic blood pressure was greater than 200, so she was told to come to the emergency department. Patient states she was not having symptoms, was tearful but complied. [facility] <Sammi Sanchez DO - Last Filed: 06/07/23 15:09> [facility] Disclaimer: The information contained in this section may have been updated after the patient was seen, as this information can be updated by other users. Medical History Anxiety Bulging of lumbar intervertebral disc Carotid stenosis Facet hypertrophy of lumbar region HLD (hyperlipidemia) HTN (hypertension), benign Ligamentum flavum hypertrophy Osteopenia (~10/12/17) Palpitations Tachycardia Surgical History H/O breast biopsy Hx of tonsillectomy Family History Other Anxiety Social History Smoking Status: Current every day smoker tobacco type: cigarettes packs per day: 1 second hand exposure: Yes alcohol intake: never substance use type: denies use current occupational status: retired Travel in the last 8 weeks: None household members: none housing: apartment number of children: 4 caffeine: No <Markus Byrne MD - Last Filed: 06/07/23 15:20> ROS Obtained: Yes All systems reviewed & no additional complaints except as documented <Markus Byrne MD - Last Filed: 06/07/23 15:20> General General appearance: alert and in no apparent distress Head Head exam: atraumatic and normocephalic Eye Eye exam: Present normal appearance, PERRL and EOMI ENT ENT exam: Present mucous membranes moist Neck Neck exam: Present normal inspection, full ROM and trachea midline Respiratory Respiratory exam: Absent respiratory distress, wheezes, stridor, accessory m uscle use or prolonged expiratory phase Cardiovascular Cardiovascular exam: Present normal rhythm Abdominal Exam Abdominal exam: Present soft; Absent distention, tenderness, guarding, rebound or rigidity Extremities Exam Extremities exam: Absent edema Neurological Exam Neurological exam: Present alert, oriented X3, CN II-XII intact and normal gait; Absent motor sensory deficit Skin Skin exam: Present warm and dry; Absent diaphoresis or erythema Medical Decision Making <Sammi Sanchez DO - Last Filed: 06/07/23 15:09> Vital Signs: 06/07/23 14:58 Temperature 97.8 F Temperature Source Oral Pulse Rate [Radial] 96 H Respiratory Rate 20 Blood Pressure [Right Arm] 156/84 H Blood Pressure Mean [Right Arm] 108 Blood Pressure Source [Right Arm] Automatic Cuff Blood Pressure Position [Right Arm] Sitting 02 Sat by Pulse Oximetry 99 Oxygen Delivery Method Room Air <Markus Byrne MD - Last Filed: 06/07/23 15:20> Medical Records Medical records reviewed: Yes I reviewed the patient's medical records. Francisco Inquiry Pt receiving controlled substance: No Francisco was queried for this patient: No Vital Signs: 06/07/23 14:58 Temperature 97.8 F Temperature Source Oral Pulse Rate [Radial] 96 H Respiratory Rate 20 Blood Pressure [Right Arm] 156/84 H Blood Pressure Mean [Right Arm] 108 Blood Pressure Source [Right Arm] Automatic Cuff Blood Pressure Position [Right Arm] Sitting 02 Sat by Pulse Oximetry 99 Oxygen Delivery Method Room Air Medical Decision Narrative: 68-year-old female history of HTN hyperlipidemia, CAD AAA, COPD not on surgeon presenting with asymptomatic hypertension. She has whitecoat syndrome, went to her family doctor today. Systolic blood pressure was greater than 200, so she was told to come to the emergency department. Patient states she was not having symptoms, was tearful but complied. Because patient not currently having symptoms and was not having symptoms at the time of hypertension, deemed approp riate for outpatient management. Patient's blood pressure normalized here. Because of likelihood of worsening outcomes of treating hypertension here, especially asymptomatic, patient deemed appropriate for outpatient management. She has a follow-up with cardiology in about 10 minutes, so she will see them here shortly. Because patient at baseline without signs or symptoms of clinical decompensation, deemed appropriate for discharge. Results were relayed to patient who voiced understanding and were agreeable to outpatient management and follow up. At the time of discharge the patient was hemodynamically stable, tolerating PO, and mobilizing appropriately. <Markus Byrne MD - Last Filed: 06/07/23 15:20> Critical Care Time Critical Care Time: No
--- NOTE | 2023-06-07 15:12 | PC.NURSE ---
DR LEIVA AT BEDSIDE
[2023-06-07 15:22] VITALS: BP 162/90; PULSE 86; RESP 18; TEMP 36.6; O2SAT 97
== END 2023-06-07 15:23 | disposition home or self-care (01) ==
LOC: ER 15:19
PROVIDERS: Emergency Provider Emergency Medicine; PCP Internal Medicine
DX: I10 Essential (primary) hypertension (principal); E78.5 Hyperlipidemia, unspecified; I25.10 Atherosclerotic heart disease of native coronary artery without angina pectoris; I71.40 Abdominal aortic aneurysm, without rupture, unspecified; J44.9 Chronic obstructive pulmonary disease, unspecified; I65.29 Occlusion and stenosis of unspecified carotid artery; F17.210 Nicotine dependence, cigarettes, uncomplicated
CPT/HCPCS: 99282

== ENCOUNTER 2023-06-07 15:34 | Outpatient (CLI) | payer MEDICARE, MEDICAID, SELFPAY ==
--- NOTE | 2023-06-07 15:35 | CA_ITS ---
APPROVED REPORT EXAM: Comprehensive 2D, Doppler, and color-flow Echocardiogram Counter Clerk [employer]: Yolie Hernandez RVT Ht: 5 ft 4 in Wt: 114lbs BSA: 1.54 BP: 197/98 mmHg Indications: SOA,HTN,SMOKER,PALPS,CAD,HTN,HLD,AAA 2D Dimensions LA Volume 34.60 mL LA Volume Index 22.47 mL/m2 (M/F) 16-34 M-Mode Dimensions RVDd 2.72 cm (0.9-2.6) LA Diam 4.11 cm (1.9-4.0) LVDd 4.15 cm (3.5-5.7) LVDs 2.90 cm (3.5-5.7) IVSd 1.00 cm (0.6-1.1) PWd 0.43 cm (0.6-1.1) EF (Teich) 57.90% FS 30.10% EDV (Teich) 76.40 mL TAPSE 1.65 (<1.7) ESV (Teich) 32.20 mL LV Diastology E Decel Time 230 (160-240 msec) E/A Ratio 0.8 Aortic Valve HUGO Index 1.54 cm2/m2 AoV Peak Dionicio. 116.0 (50-130 cm/s) AO Peak GR. 5.40 mmHg AO Mean GR. 2.80 (<5 mmHg) AO VTI 24.3 (18-25 cm) HUGO (VTI) 2.44 (2.5-4.5 cm2) Mitral Valve MV E Max Dionicio. 54.0 (40-130 cm/s) MV A Velocity 72.0 (40-130 cm/s) E/A Ratio 0.75 MV PHT 67.0 ms Pulmonary Valve PV Peak Velocity 102.0 (50-150 cm/s) Tricuspid Valve TR P. Velocity 309.00 cm/s RAP Estimate 10.00 mmHg RVSP 48.20 mmHg Left Ventricle The left ventricle is normal size. The left ventricular systolic function is normal. The left ventricular ejection fraction is within the normal range. There is increased LV wall thickness. There is normal LV segmental wall motion. Transmitral Doppler flow pattern suggests impaired LV relaxation. LVEF is 55%. Right Ventricle Right ventricle is mildly dilated. Right ventricle is mildly hypokinetic. Atria Left atrium is mildly dilated. Right atrium is mildly dilated. There is no Doppler evidence of interatrial shunt. Aortic Valve The aortic valve is mildly thickened. The aortic valve is trileaflet. There is no aortic valvular stenosis. Trace aortic regurgitation is present. Mitral Valve The mitral valve is mildly thickened. No evidence of mitral valve stenosis. Mild mitral regurgitation. Tricuspid Valve The tricuspid valve leaflets are thin and pliable. Mild tricuspid regurgitation. RVSP is 30-35 mmHg. Pulmonic Valve The pulmonary valve is normal in structure. Trace pulmonic regurgitation. Great Vessels The aortic root is normal in size. The ascending aorta is not well visualized. IVC is normal in size and collapses >50% with inspiration. Pericardium There is no pericardial effusion. Other Information Study Quality: Fair Conclusion Normal LV systolic function. Mild RV dilation with mild reduction in RV function. Mild biatrial dilation. Mild MR. Mild TR. RVSP is 30-35 mmHg. Electronically signed by : Halima Rodriguez MD 06/10/2023 20:12:01
== END 2023-06-07 23:59 ==
LOC: RT 15:35
PROVIDERS: PCP Internal Medicine; Visit Provider Internal Medicine
DX: I10 Essential (primary) hypertension (principal); I25.10 Atherosclerotic heart disease of native coronary artery without angina pectoris; R00.0 Tachycardia, unspecified; R00.2 Palpitations; R06.00 Dyspnea, unspecified; I71.40 Abdominal aortic aneurysm, without rupture, unspecified; R94.31 Abnormal electrocardiogram [ECG] [EKG]
CPT/HCPCS: 93306

== ENCOUNTER 2023-06-08 11:10 | Outpatient (CLI) | payer MEDICARE, MEDICAID, SELFPAY ==
[2023-06-08 21:09] LABS: Amphetamine/Metha Screen,Urine Negative ng/ml (<1000); Barbiturates Screen,Urine Negative ng/ml (<200); Benzodiazepines Screen,Urine Negative ng/ml (<200); Cannabinoid Screen,Urine Negative ng/ml (<50); Cocaine Screen,Urine Negative ng/ml (<300); Methadone Screen,Urine Negative ng/ml (<300); Opiate Screen,Urine Positive ng/ml (<300); Phencyclidine Screen,Urine Negative ng/ml (<25)
== END 2023-06-08 23:59 ==
LOC: LAB.DROPOF 11:11
PROVIDERS: PCP Physician Assistant; Visit Provider Physician Assistant
DX: Z79.899 Other long term (current) drug therapy (principal)
CPT/HCPCS: 80307

== ENCOUNTER 2023-07-07 15:04 | Outpatient (CLI) | payer MEDICARE, MEDICAID, SELFPAY ==
[2023-07-07 15:22] LABS: Basophils # 0.1 K/mm3 (0-0.2); Basophils % 0.7 % (0.1-2.0); Eosinophils # 0.2 K/mm3 (0.0-0.4); Eosinophils % 2.1 % (0.1-12.0); Hematocrit 50.9 % (37.0-47.0); Hemoglobin 16.2 g/dL (12.2-16.2); Lymphocytes # 2.2 K/mm3 (0.7-4.5); Lymphocytes % 24.1 % (10-50); Mean Corpuscular HGB Conc 31.8 g/dL (31.8-35.4); Mean Corpuscular Hemoglobin 31.4 pg (27.0-31.2); Mean Corpuscular Volume 98.7 fl (81-99); Mean Platelet Volume 7.7 fl (7.4-10.4); Monocytes # 0.6 K/mm3 (0.1-1.0); Monocytes % 6.9 % (1.7-9.3); Neutrophils % 66.3 % (37.0-80.0); Platelet Count 294 K/mm3 (142-424); Red Blood Count 5.16 M/mm3 (4.20-5.40); Red Cell Distribution Width 13.9 % (11.5-17.5); White Blood Count 9.1 K/mm3 (4.8-10.8)
[2023-07-07 16:06] LABS: Blood Urea Nitrogen 33 mg/dl (7-17); Calcium 9.4 mg/dl (8.4-10.2); Carbon Dioxide 29 mmol/L (22.0-30.0); Chloride 101 mmol/L (98-107); Estimated Glomerular Filt Rate 62 ml/min (>60); GFR (African American) 75 ML/MIN (>60); Glucose 122 mg/dl (74-100); Sodium 138 mmol/L (136-145)
== END 2023-07-07 23:59 ==
PROVIDERS: PCP Internal Medicine; Visit Provider Nurse Practitioner Family
DX: I10 Essential (primary) hypertension (principal); I25.10 Atherosclerotic heart disease of native coronary artery without angina pectoris
CPT/HCPCS: 36415; 80048; 85025

== ENCOUNTER 2023-08-04 19:16 | Outpatient (CLI) | payer MEDICARE, MEDICAID, SELFPAY ==
[2023-08-04 20:15] LABS: 25-OH Vitamin D, Total 48.1 ng/mL (30-100)
[2023-08-04 20:47] LABS: Hemoglobin A1C 5.6 % (4.0-6.0)
== END 2023-08-04 23:59 | disposition home or self-care (01) ==
LOC: LAB.DROPOF 19:18
PROVIDERS: PCP Internal Medicine; Visit Provider Internal Medicine
DX: E55.9 Vitamin D deficiency, unspecified (principal); R73.09 Other abnormal glucose; Z68.20 Body mass index [BMI] 20.0-20.9, adult
CPT/HCPCS: 82306; 83036

== ENCOUNTER 2023-10-06 11:53 | Outpatient (CLI) | payer MEDICARE, MEDICAID, SELFPAY ==
[2023-10-06 18:18] LABS: Chol/HDL Ratio 3.5 (1-3.5); Cholesterol 134 mg/dl (140-200); HDL Cholesterol 38 mg/dl (40-60); Triglycerides 226 mg/dl (30-150); VLDL Cholesterol 45 mg/dL (0-40)
[2023-10-06 18:29] LABS: Direct LDL Cholesterol 55.54 mg/dL (100-129)
== END 2023-10-06 23:59 | disposition home or self-care (01) ==
LOC: LAB.DROPOF 10-07 11:54
PROVIDERS: PCP Internal Medicine; Visit Provider Internal Medicine
DX: I10 Essential (primary) hypertension (principal); F17.210 Nicotine dependence, cigarettes, uncomplicated
CPT/HCPCS: 80061

== ENCOUNTER 2024-01-04 14:07 | Outpatient (CLI) | payer MEDICARE, MEDICAID, SELFPAY ==
--- NOTE | 2024-01-04 14:08 | MM_ITS ---
PROCEDURE INFORMATION: Exam: MG Bilateral Screening 3D Mammography Exam date and time: 01/04/2024 2:05 PM Age: 68 years old Clinical indication: Screening examination TECHNIQUE: Imaging protocol: Bilateral Screening tomosynthesis and 2D mammography including computer-aided detection (CAD) when performed. COMPARISON: 1. MG MM DIG MAMM DX UNILAT LT CAD 06/26/2019 3:40 PM 2. MG MM clip placement RT 11/28/2018 11:05 AM FINDINGS: MAMMOGRAPHY: Breast composition: There are scattered areas of fibroglandular density. Mass: None. Architectural distortion: None. Calcifications: No suspicious calcifications. Asymmetric density: None. Skin thickening: None. Axillary adenopathy: None. IMPRESSION: No mammographic evidence of malignancy. Annual screening is recommended unless otherwise clinically indicated. ASSESSMENT: BI-RADS Category 1: Negative
== END 2024-01-04 23:59 | disposition home or self-care (01) ==
LOC: RAD 14:08
PROVIDERS: PCP Internal Medicine; Visit Provider Internal Medicine
DX: Z12.31 Encounter for screening mammogram for malignant neoplasm of breast (principal)
CPT/HCPCS: 77063; 77067

== ENCOUNTER 2024-10-19 23:42 | Observation (INO) | payer MEDICARE, MEDICAID, SELFPAY ==
--- OUTSIDE RECORDS SUMMARY | 2009-03-19 03:30 | XMS_ITS | Continuity of Care Document ---
Author Organization [facility] Address [address] [place] [address] Phone Care Team Providers Care Industrial Recruiter Name Role Phone Unavailable Unavailable Unavailable Procedures Procedure Date Extraction erupted tooth or exposed root Extraction erupted tooth or exposed root Periapical first film Palliative tx dental pain minor proc Jan Advance Directives Directive Yes / No Effective Date File Name No Information Encounters Encounter Description Practice Location Reason(s) For Visit Diagnoses Date Provider Providers Copied on Encounter [facility], [address] [place] [address] [place], [id number] tel:[phone] [facility] [place] No Information 4-200 9 No Information [facility], [address] [place] [address] Verónica Gomez [place], [place], [id number] tel:[phone] [facility] [place] No Information 9-200 9 No Information Family History Family Member Type Diagnosis Age At Onset No Information Payers Payer name Insurance type Covered constitution party ID Authoriza tion(s) No Information Social [...]
--- OUTSIDE RECORDS SUMMARY | 2024-10-19 23:52 | XMS_ITS | Encounter Summary ---
Author Organization [employer] Address [address] [place] [address] Care Team Providers Care Stained Glass Joiner Name Role Phone Unavailable Primary Care Provider Unavailabl e Encounter Details Date Type Department Care Team (Late st Contact Info) Description 07/02/2021 Transcribed Document [facility] [place] [facility] [place] [address] ProviderMorteza MD [facility] [place], [place] [id number] Social History Tobacco Use Types Packs/Day Years Used Date Smoking Tobacco: Never Assessed Comments Unknown Sex and Gender Information Value Date Recorded Sex Assigned at Female 11/10/2021 7:49 PM CDT Legal Sex Female 7:49 PM CDT Gender Identity Female 11/10/2021 7:49 PM CDT Sexual Orientation Not on file documented as of this encounter Miscellaneous Notes * Cerner Conversion Note - Historical Provider, - 07/02/2021 5:00 PM RUBBER TURNER Chart Check - Review Order Profile Entered On: 07/02/2021 18:36 EST Performed On: 07/02/2021 17:00 EST by Darby Troncoso, RN Chart Check Powerplans Initiated/Discontinued as Appropriate : Not applicable All Active Orders Reviewed : Yes Darby Troncoso, RN - 07/02/2021 18:36 EST Electronically signed by [facility] Conversion Labor Service Representative Cerner at 08/31/2022 9:56 PM CDT documented in this encounter Plan of Treatment Not on file documented as of this encounter Visit Diagnoses Not on filedocumented in this encounter
--- OUTSIDE RECORDS SUMMARY | 2024-10-19 23:52 | XMS_ITS | Encounter Summary ---
Author Organization [employer] Address [address] [place] [address] Care Team Providers Care Tub Mender Name Role Phone Unavailable Primary Care Provider Unavailabl e Encounter Details Date Type Department Care Team (Late st Contact Info) Description 07/02/2021 Transcribed Document [address] [id number] Stevan Watkins MD [address] [facility] [place] [address] Social History Tobacco Use Types Packs/Day Years Used Date Smoking Tobacco: Never Assessed Comments Unknown Sex and Gender Information Value Date Recorded Sex Assigned at Female 11/10/2021 7:49 PM CDT Legal Sex Female 7:49 PM CDT Gender Identity Female 11/10/2021 7:49 PM CDT Sexual Orientation Not on file documented as of this encounter Miscellaneous Notes * Cerner Conversion Note - Stevan Watkins MD - 07/02/2021 12:13 PM EST Patient: ANISHA GRIER Age: 66 Years Sex: Female : 1955 *Operation 1. Ultrasound-guided bilateral femoral arterial access 2. Endovascular repair of nonruptured infrarenal abdominal aortic aneurysm down to the iliac bifurcation 3. Right common iliac artery stent 4. Left common iliac artery angioplasty Indication for Surgery This is a 66-year-old female with challenging aortic morphology due to aortic aneurysm disease as well as occlusive disease at the aortic and iliac bifurcation. She has been offered an endovascular repair for prevention of aortic rupture. Will be challenging due to her iliac stenosis which will also have to be treated during the process of aortic aneurysm repair *Preoperative Diagnosis Abdominal aortic aneurysm and iliac stenosis *Postoperative Diagnosis Abdominal aortic aneurysm and iliac stenosis *Surgeon(s) Primary Surgeon STEVAN WATKINS MD-WYATT (Surgeon/Proceduralist, First) *Procedure Narrative Patient was taken back to the operating room placed in supine position operative table. Following IV sedation bilateral groins were widely prepped and draped in standard sterile fashion. A timeout was taken with identification of the patient and procedure. Under ultrasound guidance bilateral common femoral arteries were accessed with an anterior surface. This was in retrograde fashion. 8 Austrian sheaths were placed. 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 This was successful and an 8 x 59 Marion VBX covered stent was deployed across the right common iliac artery origin. This allowed for placement of a Perclose device and a 12 Austrian sheath within the right femoral artery. The left femoral access was also achieved and 2 Perclose devices were placed. It was difficult accessing the aorta due to severe common iliac artery stenosis. Afterwards a 16 Austrian sheath was placed in retrograde fashion into the aorta. A 26 x 1212 graft was advanced. Abdominal aortography was performed. This was deployed below the bilateral renal arteries. The contralateral gate was next cannulated. A 12 x 14 limb was deployed into the right common iliac artery stent. The left common iliac was treated with a 12 x 10 limb director inpatient headache program. This extended above the left internal iliac artery. There was still severe stenosis seen within the left common iliac artery. Kissing balloon angioplasty was required. 10 mm noncompliant balloon was used to angioplasty the iliac bifurcation. Completion aortography was performed. No evidence of an endoleak was seen. Bilateral renal arteries were patent. Both sheaths were removed. Perclose devices were used to achieve hemostasis. Heparin was reversed with protamine. Anesthesia MAC JANAE HOLCOMB MD-ANS (Anesthesiologist of Record) *Estimated Blood Loss Less than 100 mL *Findings 1. Marion excluder 26 1212 main body, left limb extension 12 x 10 and right contralateral limb 12 x 14 2. 8 x 59 Marion VBX stent in right common iliac artery *Specimen(s) none Complications none Date of Service Date/Time of Service SN - Proc - Start Time: 07/02/21 10:16:00 (07/02/21 10:29:31) documented in this encounter Plan of Treatment Not on file documented as of this encounter Visit Diagnoses Not on filedocumented in this encounter
--- OUTSIDE RECORDS SUMMARY | 2024-10-19 23:52 | XMS_ITS | Encounter Summary ---
Author Organization [employer] Address [address] [place] [address] Care Team Providers Care Cement Sack Breaker Name Role Phone Unavailable Primary Care Provider Unavailabl e Encounter Details Date Type Department Care Team (Late st Contact Info) Description 07/02/2021 Transcribed Document [facility] [place] [facility] [place] [address] ProviderMorteza MD [address] [place] [id number] Social History Tobacco Use Types Packs/Day Years Used Date Smoking Tobacco: Never Assessed Comments Unknown Sex and Gender Information Value Date Recorded Sex Assigned at Female 11/10/2021 7:49 PM CDT Legal Sex Female 7:49 PM CDT Gender Identity Female 11/10/2021 7:49 PM CDT Sexual Orientation Not on file documented as of this encounter Miscellaneous Notes * Cerner Conversion Note - Historical ProviderMD - 07/02/2021 10:16 AM ASSISTANT PROSECUTING ATTORNEY [facility] Main OR PACU Summary Primary Physician: MIKA THIBODEAUX MD-SUR Finalized Date/Time: 07/02/21 12:47:26 Pt. Name: ANISHA GRIER/Sex: 1955 Female Med Rec #: [id number] Physician: MKIA THIBODEAUX MD-SUR Financial #: [id number] Pt. Type: I Room/Bed: [facility] Admit/Disch: 07/02/21 06:37:00 - Institution: [facility] Main OR PACU I Case Times Entry 1 In PACU I 07/02/21 11:15:00 Ready for PACU 07/02/21 12:15:00 Discharge Discharge from PACU 07/02/21 12:35:00 I Last Modified By: KandyNaina rand RN-PATIENT CARE BEDSIDE NON-EXEMPT 07/02/21 12:46:57 [facility] Main OR PACU Acuity Entry 1 Start Time 07/02/21 12:15:00 Stop Time 07/02/21 12:35:00 Acuity Level [facility] PACU Acuity I Last Modified By: Naina Gaitan RN-PATIENT CARE BEDSIDE NON-EXEMPT 07/02/21 12:47:24 Finalized By: Naina Gaitan RN-PATIENT CARE BEDSIDE NON-EXEMPT Document Signatures Signed By: Naina Gaitan RN-PATIENT CARE BEDSIDE NON-EXEMPT 07/02/21 12:47 documented in this encounter Plan of Treatment Not on file documented as of this encounter Visit Diagnoses Not on filedocumented in this encounter
--- OUTSIDE RECORDS SUMMARY | 2024-10-19 23:53 | XMS_ITS | Encounter Summary ---
Author Organization [employer] Address [address] [place] [address] Care Team Providers Care Dining Room Server Name Role Phone Unavailable Primary Care Provider Unavailabl e Encounter Details Date Type Department Care Team (Late st Contact Info) Description 07/03/2021 Transcribed Document [facility] [place] include 234 beds at the [facility] [address] ProviderMorteza MD [address] [place] [id number] Social History Tobacco Use Types Packs/Day Years Used Date Smoking Tobacco: Never Assessed Comments Unknown Sex and Gender Information Value Date Recorded Sex Assigned at Female 11/10/2021 7:49 PM CDT Legal Sex Female 7:49 PM CDT Gender Identity Female 11/10/2021 7:49 PM CDT Sexual Orientation Not on file documented as of this encounter Miscellaneous Notes * Cerner Conversion Note - Morteaz ProviderMD - 07/03/2021 5:15 PM DIRECTOR STYLE [facility] JOSUE Fajardo [id number] ANISHA GRIER :1955 Visit Time:07/02/2021 Your Visit Summary Your Care Team Admitting Physician - MIKA WATKINS MD-SUR Attending Physician - MIKA WATKINS MD-SUR Primary Care Physician - ALBERT LIMON (REF)[place] Referring Physician - MIKA WATKINS MD-SUR Your Diagnosis Abdominal aortic aneurysm, without rupture, Abdominal aortic aneurysm, without rupture These Are Your Goals Patient Discharge Goal Patient Discharge Goal: Home What to do next Instructions From Your Care Team Please take blood pressures daily and when feeling symptomatic. Call Primary Care Doctor with any major changes. Check oxygen saturation when needed. Discharge Follow Up Instructions: [address] Watkins with CTA AAA protocol prior. Information will be mailed to patient reguaing imaging., Order Comment: Please call for Follow Up appointment in 2 weeks Follow Up Instructions: , Order Comment: Please give patient discharge instruction sheet on discharge. Follow Up Instructions: , Order Comment: Give patient prescription on discharge. Activity: Discharge Activity: No heavy lifting over 10 lbs Diet: Discharge Diet: Resume usual diet as tolerated Wound/Incision Care Instructions: Keep operative site/wound clean and dry Showering/Bathing Instructions: May shower Driving Restriction: No driving until 24 hours after taking pain medication Follow-Up Appointments Follow Up with ALBERT LIMON (QUEENIE)MD-[facility] When In 6 days 07/08/2021 EST Comments Appointment has been made - patient aware of time Where: [place] [address] [place] [address]- Follow Up with Follow up with primary care provider When Within 2 to 3 days Comments Follow up with primary care provider regarding blood pressure medications Where: Medications What How Much When Instructions Next Dose acetaminophen-hydrocodone ([place] 7.5 mg-325 mg oral tablet) 1 Tablet(s) Oral Three Times A Day for chronic back pain albuterol (ProAir HFA 90 mcg/ inh inhalation aerosol) 2 Puff(s) Inhalation Every 6 Hours as needed for SOA or wheezing aspirin 81 Milligram(s) Oral At Bedtime cholecalciferol (Vitamin D3) 50,000 Unit(s) Oral Weekly usually Tuesday night clonazePAM 0.5 Milligram(s) Oral Two Times A Day only takes PRN clopidogrel (Plavix 75 mg oral tablet) Oral At Bedtime gabapentin 400 Milligram(s) Oral Three Times A Day rosuvastatin 20 Milligram(s) Oral At Bedtime Take your medications faithfully. Do NOT skip medication. Do NOT stop taking medications without the direction of a physician. Carry a list of your medications with you at all times, and take this medication list with you to your first follow up visit. Report any side effects. Avoid herbal remedies unless discussed with your physician. As part of your treatment plan, your physician may have prescribed a limited course of a controlled substance. This medication may be given to help people with moderate or severe pain or for other medical conditions, but there are risks involved with treatment. Common side effects may include nausea, constipation, drowsiness, sweating, itching, dry mouth, and rash. More serious side effects may include cognitive and motor impairment, like problems with thinking, concentrating, alertness, and movement (e.g. slowed reflexes), and driving and operating heavy machinery can be dangerous. It is important for you to talk to your physician if you have these side effects or questions. These controlled substances can produce physical dependence and be habit-forming if taken for an extended period of time, which means that the body has gotten used to them and may experience withdrawal symptoms if they are abruptly stopped. Withdrawal symptoms can include runny nose, sweating, goose bumps, diarrhea, abdominal cramping, rapid heartbeat, difficulty sleeping, and nervousness. Please dispose of unused and medications per your retail pharmacy guidance. Allergies sulfa drugs (Anaphylaxis) Immunizations This Visit SARS-CoV-2 (COVID-19) Ad26 vacc, recomb 08/19/2020 Education Materials Hypertension, Adult High blood pressure (hypertension) is when the force of blood pumping through the arteries is too strong. The arteries are the blood vessels that carry blood from the heart throughout the body. Hypertension forces the heart to work harder to pump blood and may cause arteries to become narrow or stiff. Untreated or uncontrolled hypertension can cause a heart attack, heart failure, a stroke, kidney disease, and other problems. A blood pressure reading consists of a higher number over a lower number. Ideally, your blood pressure should be below 120/80. The first ( top ) number is called the systolic pressure. It is a measure of the pressure in your arteries as your heart beats. The second ( bottom ) number is called the diastolic pressure. It is a measure of the pressure in your arteries as the heart relaxes. What are the causes? The exact cause of this condition is not known. There are some conditions that result in or are related to high blood pressure. What increases the risk? Some risk factors for high blood pressure are under your control. The following factors may make you more likely to develop this condition: ??? Smoking. ??? Having type 2 diabetes mellitus, high cholesterol, or both. ??? Not getting enough exercise or physical activity. ??? Being overweight. ??? Having too much fat, sugar, calories, or salt (sodium) in your diet. ??? Drinking too much alcohol. Some risk factors for high blood pressure may be difficult or impossible to change. Some of these factors include: ??? Having chronic kidney disease. ??? Having a family history of high blood pressure. ??? Age. Risk increases with age. ??? Race. You may be at higher risk if you are . ??? Gender. Men are at higher risk than women before age 45. After age 65, women are at higher risk than men. ??? Having obstructive sleep apnea. ??? Stress. What are the signs or symptoms? High blood pressure may not cause symptoms. Very high blood pressure (hypertensive crisis) may cause: ??? Headache. ??? Anxiety. ??? Shortness of breath. ??? Nosebleed. ??? Nausea and vomiting. ??? Vision changes. ??? Severe chest pain. ??? Seizures. How is this diagnosed? This condition is diagnosed by measuring your blood pressure while you are seated, with your arm resting on a flat surface, your legs uncrossed, and your feet flat on the floor. The cuff of the blood pressure monitor will be placed directly against the skin of your upper arm at the level of your heart. It should be measured at least twice using the same arm. Certain conditions can cause a difference in blood pressure between your right and left arms. Certain factors can cause blood pressure readings to be lower or higher than normal for a short period of time: ??? When your blood pressure is higher when you are in a health care provider's office than when you are at home, this is called white coat hypertension. Most people with this condition do not need medicines. ??? When your blood pressure is higher at home than when you are in a health care provider's office, this is called masked hypertension. Most people with this condition may need medicines to control blood pressure. If you have a high blood pressure reading during one visit or you have normal blood pressure with other risk factors, you may be asked to: ??? Return on a different day to have your blood pressure checked again. ??? Monitor your blood pressure at home for 1 week or longer. If you are diagnosed with hypertension, you may have other blood or imaging tests to help your health care provider understand your overall risk for other conditions. How is this treated? This condition is treated by making healthy lifestyle changes, such as eating healthy foods, exercising more, and reducing your alcohol intake. Your health care provider may prescribe medicine if lifestyle changes are not enough to get your blood pressure under control, and if: ??? Your systolic blood pressure is above 130. ??? Your diastolic blood pressure is above 80. Your personal target blood pressure may vary depending on your medical conditions, your age, and other factors. Follow these instructions at home: Eating and drinking ??? Eat a diet that is high in fiber and potassium, and low in sodium, added sugar, and fat. An example eating plan is called the DASH (Dietary Approaches to Stop Hypertension) diet. To eat this way: ? Eat plenty of fresh fruits and vegetables. Try to fill one half of your plate at each meal with fruits and vegetables. ? Eat whole grains, such as whole-wheat pasta, brown rice, or whole-grain bread. Fill about one fourth of your plate with whole grains. ? Eat or drink low-fat dairy products, such as skim milk or low-fat yogurt. ? Avoid fatty cuts of meat, processed or cured meats, and poultry with skin. Fill about one fourth of your plate with lean proteins, such as fish, chicken without skin, beans, eggs, or tofu. ? Avoid pre-made and processed foods. These tend to be higher in sodium, added sugar, and fat. ??? Reduce your daily sodium intake. Most people with hypertension should eat less than 1,500 mg of sodium a day. ??? Do not drink alcohol if: ? Your health care provider tells you not to drink. ? You are , may be , or are planning to become . ??? If you drink alcohol: ? Limit how much you use to: ? 0???1 drink a day for women. ? 0???2 drinks a day for men. ? Be aware of how much alcohol is in your drink. In the [place] one drink equals one 12 oz bottle of beer (355 mL), one 5 oz glass of wine (148 mL), or one 1?? oz glass of hard liquor (44 mL). Lifestyle ??? Work with your health care provider to maintain a healthy body weight or to lose weight. Ask what an ideal weight is for you. ??? Get at least 30 minutes of exercise most days of the week. Activities may include walking, swimming, or biking. ??? Include exercise to strengthen your muscles (resistance exercise), such as Pilates or lifting weights, as part of your weekly exercise routine. Try to do these types of exercises for 30 minutes at least 3 days a week. ??? Do not use any products that contain nicotine or tobacco, such as cigarettes, e-cigarettes, and chewing tobacco. If you need help quitting, ask your health care provider. ??? Monitor your blood pressure at home as told by your health care provider. ??? Keep all follow-up visits as told by your health care provider. This is important. Medicines ??? Take dprb-yve-uetptsv and prescription medicines only as told by your health care provider. Follow directions carefully. Blood pressure medicines must be taken as prescribed. ??? Do not skip doses of blood pressure medicine. Doing this puts you at risk for problems and can make the medicine less effective. ??? Ask your health care provider about side effects or reactions to medicines that you should watch for. Contact a health care provider if you: ??? Think you are having a reaction to a medicine you are taking. ??? Have headaches that keep coming back (recurring). ??? Feel dizzy. ??? Have swelling in your ankles. ??? Have trouble with your vision. Get help right away if you: ??? Develop a severe headache or confusion. ??? Have unusual weakness or numbness. ??? Feel faint. ??? Have severe pain in your chest or abdomen. ??? Vomit repeatedly. ??? Have trouble breathing. Summary ??? Hypertension is when the force of blood pumping through your arteries is too strong. If this condition is not controlled, it may put you at risk for serious complications. ??? Your personal target blood pressure may vary depending on your medical conditions, your age, and other factors. For most people, a normal blood pressure is less than 120/80. ??? Hypertension is treated with lifestyle changes, medicines, or a combination of both. Lifestyle changes include losing weight, eating a healthy, low-sodium diet, exercising more, and limiting alcohol. This information is not intended to replace advice given to you by your health care provider. Make sure you discuss any questions you have with your health care provider. Document Revised: 01/10/2019 Document Reviewed: 01/10/2019 Elsevier Patient Education ?? 2020 [employer] Home Oxygen Use, Adult When a medical condition keeps you from getting enough oxygen, your health care provider may instruct you to take extra oxygen at home. Your health care provider will let you know: ??? When to take oxygen. ??? How long to take oxygen. ??? How quickly oxygen should be delivered (flow rate), in liters per minute (LPM or L/M). Home oxygen can be given through: ??? A mask. ??? A nasal cannula. This is a device or tube that goes in the nostrils. ??? A transtracheal catheter. This is a small, thin tube placed in the windpipe (trachea). ??? A breathing tube (tracheostomy tube) that is surgically placed in the windpipe. This may be used in severe cases. These devices are connected with tubing to an oxygen source, such as: ??? A tank. Tanks hold oxygen in gas form. They must be replaced when the oxygen is used up. ??? A liquid oxygen device. This holds oxygen in liquid form. Liquid oxygen is very cold. It must be replaced when the oxygen is used up. ??? An oxygen concentrator machine. This filters oxygen in the room. There are two types of oxygen concentrator machines???stationary and portable. ? A stationary oxygen concentrator machine plugs into the main electricity supply at your home. You must have a backup cylinder of oxygen in case the power goes out. ? A portable oxygen concentrator machine is smaller in size and more lightweight. This machine uses battery supply and can be used outside the home. Work with your health care provider to find equipment that works best for you and your lifestyle. What are the risks? Delivery of supplemental oxygen is generally safe. However, some risks include: ??? Fire. This can happen if the oxygen is exposed to a heat source, flame, or spark. ??? Injury to skin. This can happen if liquid oxygen touches your skin. ??? Damage to the lungs or other organs. This can happen from getting too little or too much oxygen. Supplies needed: To use oxygen, you will need: ??? A mask, nasal cannula, transtracheal catheter, or tracheostomy. ??? An oxygen tank, a liquid oxygen device, or an oxygen concentrator. ??? The tape that your health care provider recommends (optional). Your health care provider may also recommend: ??? A humidifier to warm and moisten the oxygen delivered. This will depend on how much oxygen you need and the type of home oxygen device you use. ??? A pulse oximeter. This device measures the percentage of oxygen in your blood. How to use oxygen Your health care provider or a person from your medical translator company will show you how to use your oxygen device. Follow his or her instructions. The instructions may look something like this: 1. Wash your hands with soap and water. 2. If you use an oxygen concentrator, make sure it is plugged in. 3. Place one end of the tube into the port on the tank, device, or machine. 4. Place the mask over your nose and mouth. Or, place the nasal cannula and secure it with tape if instructed. If you use a tracheostomy or transtracheal catheter, connect it to the oxygen source as directed. 5. Make sure the liter-flow setting on the machine is at the level prescribed by your health care provider. 6. Turn on the machine or adjust the knob on the tank or device to the correct liter-flow setting. 7. When you are done, turn off and unplug the machine, or turn the knob to OFF. How to clean and care for the oxygen supplies Nasal cannula ??? Clean it with a warm, wet cloth daily or as needed. ??? Wash it with a liquid soap once a week. ??? Rinse it thoroughly once or twice a week. ??? Air-dry it. ??? Replace it every 2???4 weeks. ??? If you have an infection, such as a cold or pneumonia, change the cannula when you get better. Mask ??? Replace it every 2???4 weeks. ??? If you have an infection, such as a cold or pneumonia, change the mask when you get better. Humidifier bottle ??? Wash the bottle between each refill: ? Wash it with soap and warm water. ? Rinse it thoroughly. ? Clean it and its top with a disinfectant shirt cleaner. ? Air-dry it. ? Make sure it is dry before you refill it. Oxygen concentrator ??? Clean the air filter at least twice a week according to directions from your home medical equipment and service company. ??? Wipe down the cabinet every day. To do this: ? Unplug the unit. ? Wipe down the cabinet with a damp cloth. ? Dry the cabinet. Other equipment ??? Change any extra tubing every 1???3 months. ??? Follow instructions from your health care provider about taking care of any other equipment. Safety tips Fire safety tips ??? Keep your oxygen and oxygen supplies at least 6 ft (2 m) away from sources of heat, flames, and ness at all times. ??? Do not allow smoking near your oxygen. Put up no smoking signs in your home. Avoid smoking areas when in public. ??? Do not use materials that can burn (are flammable) while you use oxygen. This includes: ? Petroleum jelly. ? Hair spray or other aerosol sprays. ? Rubbing alcohol. ? Hand brood hatchery manager. ??? When you go to a restaurant with portable oxygen, ask to be seated in the non-smoking section. ??? Keep a fire extinguisher close by. Let your fire department know that you have oxygen in your home. ??? Test your home smoke detectors regularly. Traveling ??? Secure your oxygen tank in the vehicle so that it does not move around. Follow instructions from your medical translator company about how to safely secure your tank. ??? Make sure you have enough oxygen for the amount of time you will be away from home. ??? If you are planning to travel by public transportation (airplane, train, bus, or boat), contact the company to find out if it allows the use of an approved portable oxygen concentrator. You may also need documents from your health care provider and medical translator company before you travel. General safety tips ??? If you use an oxygen cylinder, make sure it is in a stand or secured to an object that will not move (fixed object). ??? If you use liquid oxygen, make sure its container is kept upright at all times. ??? If you use an oxygen concentrator: ? Tell your [employer] company. Make sure you are given priority service in the event that your power goes out. ? Avoid using extension cords if possible. Follow these instructions at home: ??? Use oxygen only as told by your health care provider. ??? Do not use alcohol or other drugs that make you relax (sedating drugs) unless instructed. They can slow down your breathing rate and make it hard to get in enough oxygen. ??? Know how and when to order a refill of oxygen. ??? Always keep a spare tank of oxygen. Plan ahead for holidays when you may not be able to get a prescription filled. ??? Use water-based lubricants on your lips or nostrils. Do not use oil-based products like petroleum jelly. ??? To prevent skin irritation on your cheeks or behind your ears, tuck some gauze under the tubing. Where to find more information ??? [place] [employer]: www.lung.org/oxygen Contact a health care provider if: ??? You get headaches often. ??? You have a lasting cough. ??? You are restless or have anxiety. ??? You develop an illness that affects your breathing. ??? You cannot exercise at your regular level. ??? You have a fever. ??? You have persistent redness under your nose. Get help right away if: ??? You are confused. ??? You are sleepy all the time. ??? You have blue lips or fingernails. ??? You have difficult or irregular breathing that is getting worse. ??? You are struggling to breathe. These symptoms may represent a serious problem that is an emergency. Do not wait to see if the symptoms will go away. Get medical help right away. Call your local emergency services (911 in the [place] Do not drive yourself to the hospital. Summary ??? Your health care provider or a person from your medical translator company will show you how to use your oxygen device. Follow his or her instructions. ??? If you use an oxygen concentrator, make sure it is plugged in. ??? Make sure the liter-flow setting on the machine is at the level prescribed by your health care provider. ??? Use oxygen only as told by your health care provider. ??? Keep your oxygen and oxygen supplies at least 6 ft (2 m) away from sources of heat, flames, and ness at all times. This information is not intended to replace advice given to you by your health care provider. Make sure you discuss any questions you have with your health care provider. Document Revised: 07/03/2020 Document Reviewed: 04/29/2020 [employer] Patient Education ?? 2020 [employer] Steps to Quit Smoking Smoking tobacco is the leading cause of preventable . It can affect almost every organ in the body. Smoking puts you and people around you at risk for many serious, long-lasting (chronic) diseases. Quitting smoking can be hard, but it is one of the best things that you can do for your health. It is never too late to quit. How do I get ready to quit? When you decide to quit smoking, make a plan to help you succeed. Before you quit: ??? Pick a date to quit. Set a date within the next 2 weeks to give you time to prepare. ??? Write down the reasons why you are quitting. Keep this list in places where you will see it often. ??? Tell your family, friends, and co-workers that you are quitting. Their support is important. ??? Talk with your doctor about the choices that may help you quit. ??? Find out if your health insurance will pay for these treatments. ??? Know the people, places, things, and activities that make you want to smoke (triggers). Avoid them. What first steps can I take to quit smoking? Throw away all cigarettes at home, at work, and in your car. ??? Throw away the things that you use when you smoke, such as ashtrays and lighters. ??? Clean your car. Make sure to empty the ashtray. ??? Clean your home, including curtains and carpets. What can I do to help me quit smoking? Talk with your doctor about taking medicines and seeing a counselor at the same time. You are more likely to succeed when you do both. ??? If you are or , talk with your doctor about counseling or other ways to quit smoking. Do not take medicine to help you quit smoking unless your doctor tells you to do so. To quit smoking: Quit right away ??? Quit smoking totally, instead of slowly cutting back on how much you smoke over a period of time. ??? Go to counseling. You are more likely to quit if you go to counseling sessions regularly. Take medicine You may take medicines to help you quit. Some medicines need a prescription, and some you can buy fnqe-khv-[id number]. Some medicines may contain a drug called nicotine to replace the nicotine in cigarettes. Medicines may: ??? Help you to stop having the desire to smoke (cravings). ??? Help to stop the problems that come when you stop smoking (withdrawal symptoms). Your doctor may ask you to use: ??? Nicotine patches, gum, or lozenges. ??? Nicotine inhalers or sprays. ??? Non-nicotine medicine that is taken by mouth. Find resources Find resources and other ways to help you quit smoking and remain smoke-free after you quit. These resources are most helpful when you use them often. They include: ??? Online chats with a counselor. ??? Phone quitlines. ??? Printed self-help materials. ??? Support groups or group counseling. ??? Text messaging programs. ??? Mobile phone apps. Use apps on your mobile phone or tablet that can help you stick to your quit plan. There are many free apps for mobile phones and tablets as well as websites. Examples include Quit Guide from the CDC and smokefree.gov What things can I do to make it easier to quit? Talk to your family and friends. Ask them to support and encourage you. ??? Call a phone quitline (5-704-DUVU-NOW), reach out to support groups, or work with a counselor. ??? Ask people who smoke to not smoke around you. ??? Avoid places that make you want to smoke, such as: ? Bars. ? Parties. ? Smoke-break areas at work. ??? Spend time with people who do not smoke. ??? Lower the stress in your life. Stress can make you want to smoke. Try these things to help your stress: ? Getting regular exercise. ? Doing deep-breathing exercises. ? Doing yoga. ? Meditating. ? Doing a body scan. To do this, close your eyes, focus on one area of your body at a time from head to toe. Notice which parts of your body are tense. Try to relax the muscles in those areas. How will I feel when I quit smoking? Day 1 to 3 weeks Within the first 24 hours, you may start to have some problems that come from quitting tobacco. These problems are very bad 2???3 days after you quit, but they do not often last for more than 2???3 weeks. You may get these symptoms: ??? Mood swings. ??? Feeling restless, nervous, angry, or annoyed. ??? Trouble concentrating. ??? Dizziness. ??? Strong desire for high-sugar foods and nicotine. ??? Weight gain. ??? Trouble pooping (constipation). ??? Feeling like you may vomit (nausea). ??? Coughing or a sore throat. ??? Changes in how the medicines that you take for other issues work in your body. ??? Depression. ??? Trouble sleeping (insomnia). Week 3 and afterward After the first 2???3 weeks of quitting, you may start to notice more positive results, such as: ??? Better sense of smell and taste. ??? Less coughing and sore throat. ??? Slower heart rate. ??? Lower blood pressure. ??? Clearer skin. ??? Better breathing. ??? Fewer sick days. Quitting smoking can be hard. Do not give up if you fail the first time. Some people need to try a few times before they succeed. Do your best to stick to your quit plan, and talk with your doctor if you have any questions or concerns. Summary ??? Smoking tobacco is the leading cause of preventable . Quitting smoking can be hard, but it is one of the best things that you can do for your health. ??? When you decide to quit smoking, make a plan to help you succeed. ??? Quit smoking right away, not slowly over a period of time. ??? When you start quitting, seek help from your doctor, family, or friends. This information is not intended to replace advice given to you by your health care provider. Make sure you discuss any questions you have with your health care provider. Document Revised: 01/25/2020 Document Reviewed: 07/21/2019 [employer] Patient Education ?? 2020 [employer] Abdominal Aortic Aneurysm Endograft Repair, Care After This sheet gives you information about how to care for yourself after your procedure. Your health care provider may also give you more specific instructions. If you have problems or questions, contact your health care provider. What can I expect after the procedure? After the procedure, it is common to have: ??? Pain or soreness at the incision site. ??? Tiredness (fatigue). Follow these instructions at home: Medicines ??? Take [id number] and prescription medicines only as told by your health care provider. ??? If you were prescribed an antibiotic medicine, take it as told by your health care provider. Do not stop using the antibiotic even if you start to feel better. ??? If you are taking blood thinners: ? Talk with your health care provider before you take any medicines that contain aspirin or NSAIDs, such as ibuprofen. These medicines increase your risk for dangerous bleeding. ? Take your medicine exactly as told, at the same time every day. ? Avoid activities that could cause injury or bruising, and follow instructions about how to prevent falls. ? Wear a medical alert bracelet or carry a card that lists what medicines you take. Incision care ??? Follow instructions from your health care provider about how to take care of your incisions. Make sure you: ? Wash your hands with soap and water for at least 20 seconds before and after you change your bandage (dressing). If soap and water are not available, use hand brood hatchery manager. ? Change your dressing as told by your health care provider. ? Leave stitches (sutures), skin glue, or adhesive strips in place. These skin closures may need to stay in place for 2 weeks or longer. If adhesive strip edges start to loosen and curl up, you may trim the loose edges. Do not remove adhesive strips completely unless your health care provider tells you to do that. ??? Check your incision area every day for signs of infection. Check for: ? Redness, swelling, or more pain. ? Fluid or blood. ? Warmth. ? Pus or a bad smell. ??? Keep the incision area clean and dry. ??? Do not take baths, swim, or use a hot tub until your health care provider approves. Ask your health care provider if you may take showers. You may only be allowed to take sponge baths. Activity ??? Rest as told by your health care provider. ??? Avoid sitting for a long time without moving. Get up to take short walks every 1???2 hours. This is important to improve blood flow and breathing. Ask for help if you feel weak or unsteady. ??? Do not lift anything that is heavier than 10 lb (4.5 kg), or the limit that you are told, until your health care provider says that it is safe. ??? Do not drive until your health care provider says it is okay. ??? Limit your other activities as told. ??? Return to your normal activities as told by your health care provider. Ask your health care provider what activities are safe for you. Lifestyle ??? Do not use any products that contain nicotine or tobacco, such as cigarettes, e-cigarettes, and chewing tobacco. These can delay incision healing after surgery. If you need help quitting, ask your health care provider. ??? Make any other lifestyle changes that your health care provider suggests. These may include: ? Keeping your blood pressure under control. ? Finding ways to lower stress. ? Eating healthy foods that are good for your heart, such as vegetables, fruits, and whole grains that add fiber to your diet. ? Getting regular exercise once your health care provider tells you it is safe to do so. General instructions ??? Drink enough fluid to keep your urine pale yellow. ??? Before any dental work, tell your dentist about the graft in your aorta. You may need to take antibiotics to prevent your graft from getting infected. ??? Keep all follow-up visits as told by your health care provider. This is important. Contact a health care provider if: ??? You have pain in your abdomen, chest, or back. ??? You have redness or swelling around an incision. ??? You have more pain around an incision. ??? You have fluid or blood coming from an incision. ??? Your incision feels warm to the touch. ??? You have pus or a bad smell coming from an incision. ??? You have a fever. Get help right away if: ??? You have trouble breathing. ??? You suddenly have pain in your legs, or you have trouble moving either of your legs. ??? You faint, or you feel very light-headed. These symptoms may represent a serious problem that is an emergency. Do not wait to see if the symptoms will go away. Get medical help right away. Call your local emergency services (911 in the [place] Do not drive yourself to the hospital. Summary ??? After abdominal aortic aneurysm endograft repair, it is common to feel tired or have pain or soreness at the incision site. ??? Take all medicines as told by your health care provider. If you were given blood thinners, take them exactly as told by your health care provider. ??? Wash your hands before and after caring for your incision. Leave sutures, skin glue, or adhesive strips in place for 2 weeks or longer. ??? Rest as told. Avoid sitting for a long time without moving. Get up to take short walks every 1???2 hours. ??? Let your health care provider know if you have pain in your abdomen, chest, or back. Get help right away if you have trouble breathing or have sudden pain in your legs. This information is not intended to replace advice given to you by your health care provider. Make sure you discuss any questions you have with your health care provider. Document Revised: 04/17/2020 Document Reviewed: 04/17/2020 [employer] Patient Education ?? 2020 [employer]. Emergency Awareness and Preventative Care STROKE is an EMERGENCY Every Minute Counts Act FAST and Check for these signs: FACE Does the face look uneven? ARM Does one arm drift down? SPEECH Does their speech sound strange? TIME Call at any sign of stroke Stroke Risk Factors Atrial Fibrillation (irregular heartbeat) Diabetes Family history of stroke Heart Disease Heavy alcohol use High Blood Pressure High Cholesterol Physical inactivity and obesity Smoking Cigarette Smoking The facts are clear, cigarette smoking will shorten your life. Smoking can cause many illnesses along the way. As a healthcare provider, we recommend that you stop smoking. Assistance with quitting is available by contacting 4-367-ZOHX-NOW. This is a free resource providing counseling, support, and referral. Or you may contact your personal physician. National Suicide Prevention Lifeline: The National Suicide Prevention Lifeline is a national network of local crisis centers that provides free and confidential emotional support to people in suicidal crisis or emotional distress 24 hours a day, 7 days a week. Don't Wait! Stop a Heart Attack Before it Starts What is a heart attack? A heart attack is damage or to a part of the heart from severely decreased or lack of blood flow to the heart. Over time, arteries can become narrow from the buildup of fat and cholesterol, which is called plaque. The plaque can rupture causing a blood clot to form. When the blood clot forms, the artery can become severely narrowed or completely blocked, causing a heart attack. Heart attack is the leading cause of in the [place]. 85% of muscle damage occurs within the first 2 hours. Delay in the recognition of heart attack symptoms increases the chances of . Know the early symptoms of a heart attack: Nausea Feeling of fullness in chest Jaw Pain Pain that travels down one or both arms Fatigue/being tired Anxiety Back Pain Chest pressure, squeezing, or discomfort Shortness of breath Sweating, or a cold sweat Feeling of impending doom There are unusual signs of a heart attack, too! Women, the elderly, and diabetics may present with atypical symptoms: Fainting/dizziness Weakness Confusion Risk Factors for a Heart Attack Some heart disease risk factors, such as age and family history, cannot be changed. Others, like smoking and lack of exercise, can be changed. Smoking High Cholesterol High Blood Pressure Family History Obesity Age Gender (Males are at higher risk) Lack of Exercise Diabetes Diet Stress Excessive Alcohol Intake If you or someone you know is experiencing the signs and symptoms of a heart attack, DON???T DELAY. Call immediately and seek help. If someone collapses, perform CPR! Do not attempt to drive if you are having symptoms of heart attack. Hands-Only CPR Why Hands-Only CPR? Hands-Only CPR has been shown to be as effective as conventional CPR for cardiac arrests that occur outside of a hospital. Survival depends on immediately receiving CPR from someone nearby. How do you perform Hands-Only CPR? There are two easy steps: Call if you see a teen or adult collapse Push hard and fast in the center of the chest at a beat of 100 beats per minute. Save a life! 4 WAYS TO GET AHEAD OF SEPSIS SEPSIS is a MEDICAL EMERGENCY. Time matters! Infections put you and your family at risk for a life-threatening condition called sepsis. Sepsis is the body's extreme response to an infection. It is life-threatening, and without timely treatment, sepsis can rapidly lead to tissue damage, organ failure, and . Sepsis happens when an infection you already have-in your skin, lungs, urinary tract or somewhere else-triggers a chain reaction throughout your body. 1 PREVENT INFECTIONS Take good care of chronic conditions. Talk to your doctor about getting the recommended vaccines. 2 PRACTICE GOOD HYGIENE Wash your hands frequently. Keep cuts or open sores clean and covered until they are healed. 3 KNOW THE SYMPTOMS Confusion or disorientation Shortness of breath High heart rate Fever, shivering, or feeling very cold Extreme pain or discomfort Clammy or sweaty skin 4 ACT FAST Get medical care IMMEDIATELY if you suspect sepsis or if you have an infection that is not getting better or is getting worse. To learn more about sepsis and how to prevent infections, visit www.cdc.gov/sepsis. Test Results Laboratory or Other Results This Visit (last charted value for your 07/02/2021 visit) Hematology 07/03/2021 3:55 AM WBC: 8.1 K/uL -- Normal range between ( 4.5 and 10.5 ) RBC: 4.00 Million/uL -- Normal range between ( 3.93 and 5.22 ) Hct: 37.0 % -- Normal range between ( 34.1 and 44.9 ) Hgb: 12.2 g/dL -- Normal range between ( 11.2 and 15.7 ) Platelet Count: 142 K/uL -- Normal range between ( 163 and 369 ) MCH: 30.5 pg -- Normal range between ( 25.6 and 32.2 ) MCHC: 33.0 Gram/dL -- Normal range between ( 32.2 and 36.5 ) MCV: 92.5 fL -- Normal range between ( 79.0 and 94.8 ) Slide Review: No RDW: 12.5 % -- Normal range between ( 11.7 and 14.9 ) MPV: 9.2 fL -- Normal range between ( 9.4 and 12.4 ) 06/30/2021 10:09 AM Eos %: 3.3 % -- Normal range between ( 0.0 and 7.0 ) [place] #: 0.95 K/uL -- Normal range between ( 0.16 and 1.00 ) Eos #: 0.30 x10(3)/uL -- Normal range between ( 0.00 and 0.80 ) [place] %: 10.5 % -- Normal range between ( 3.0 and 9.0 ) Baso %: 0.9 % -- Normal range between ( 0.0 and 1.5 ) Baso #: 0.08 x10(3)/uL -- Normal range between ( 0.00 and 0.20 ) Neut %: 52.0 % -- Normal range between ( 34.0 and 71.0 ) Neut #: 4.71 K/uL -- Normal range between ( 1.56 and 6.13 ) Lymph %: 33.1 % -- Normal range between ( 19.3 and 53.1 ) Lymph #: 3.00 x10(3)/uL -- Normal range between ( 1.00 and 3.90 ) IG#: 0.02 x10(3)/uL -- Normal range between ( 0.00 and 0.05 ) IG%: 0.20 % -- Normal range between ( 0.00 and 0.60 ) Microbiology 06/30/2021 11:00 AM SARS-CoV-2 (COVID19 PCR): Negative Blood Bank 07/02/2021 8:58 AM ABO/Rh (ECHO): A POS Antibody Screen: Negative ABSC 06/30/2021 10:09 AM ABO/Rh Repeat: A POS General Chemistry 07/03/2021 3:55 AM Creatinine Level: 0.40 mg/dL -- Normal range between ( 0.55 and 1.02 ) Sodium Level: 136 mmol/L -- Normal range between ( 136 and 146 ) Potassium Level: 4.0 mmol/L -- Normal range between ( 3.5 and 5.1 ) Chloride Level: 104 mmol/L -- Normal range between ( 102 and 112 ) Carbon Dioxide Level: 29 mmol/L -- Normal range between ( 21 and 32 ) Anion Gap: 7 -- Normal range between ( 9 and 20 ) Bun/Creatinine: 22.5 -- Normal range between ( 8.0 and 20.0 ) Calcium Level: 7.8 mg/dL -- Normal range between ( 8.4 and 10.1 ) eGFR : >60 mL/min/1.73m2 eGFR NonAfrican: >60 mL/min/1.73m2 Glucose Level: 104 mg/dL -- Normal range between ( 74 and 106 ) Blood Urea Nitrogen: 9 mg/dL -- Normal range between ( 7 and 22 ) 07/02/2021 1:01 PM Glucose POC2: 104 mg/dL -- Normal range between ( 70 and 110 ) 06/30/2021 10:09 AM Magnesium Level: 2.0 mg/dL -- Normal range between ( 1.5 and 2.4 ) Phosphorus: 4.5 mg/dL -- Normal range between ( 2.5 and 4.9 ) Coagulation 06/30/2021 10:09 AM INR: 1.0 -- Normal range between ( 0.9 and 1.2 ) PT: 11.1 Second(s) -- Normal range between ( 9.2 and 12.0 ) Protein & Immunoglobulin Studies 06/30/2021 10:09 AM Prealbumin: 12.4 mg/dL -- Normal range between ( 20.0 and 40.0 ) Vascular Ultrasound 07/02/2021 11:35 AM VL Vascular Access: VL Vascular Access Patient Name:ANISHA GRIER I have received and understand this information and was given the opportunity to ask questions. Patient/Professor Of Biostatistics Name: Patient/Professor Of Biostatistics Signature: Relationship to Patient: Clinician/Hospital Professor Of Biostatistics Signature: Date: documented in this encounter Plan of Treatment Not on file documented as of this encounter Visit Diagnoses Not on filedocumented in this encounter
--- OUTSIDE RECORDS SUMMARY | 2024-10-19 23:53 | XMS_ITS | Encounter Summary ---
Author Organization [employer] Address [address] [place] [address] Care Team Providers Care Residential Leasing Manager Name Role Phone Unavailable Primary Care Provider Unavailabl e Encounter Details Date Type Department Care Team (Late st Contact Info) Description 07/03/2021 Transcribed Document [facility] [address] [place] [address] Stevan Watkins MD [address] [id number] Social History Tobacco Use Types Packs/Day Years [...] Conversion Note - Stevan Watkins MD - 07/03/2021 9:43 AM EST Patient: ANISHA GRIER Age: 66 Years Sex: Female : 1955 Subjective Patient has been slightly hypotensive and hypoxic overnight. Her blood pressure medication has been held with some benefit. She is using supplemental oxygen, though states that she hates anything on her face. She denies requiring supplemental oxygen at home, though has known COPD and is a smoker. She is tolerating po, voiding and was able to ambulate around the room. She states that pain is controlled with [place] as needed. Intake & Output Intake & Output Totals Last 24 Hours (7a-7a) Intake (23 Events) Continuous Infusions (900 mL) Medications (115 mL) Surgical Services Intake (1200 mL) Output (5 Events) Urine Voided (Volume) (1125 mL) Input Total: 2215 mL Output Total: 1125 mL Balance: 1090 mL Vital Signs T: 36.4 ??C TMIN: 36.4 ??C TMAX: 37.1 ??C HR: 72(Monitored) RR: 15 BP: 103/54 BP: 101/43(Line) SpO2: 89% HT: 165.1 cm WT: 45.09 kg BMI: 16.5 Physical Exam AAOx4, NAD, sitting up in bedside chair, no family at bedside Respiratory: normal effort on 1L NCO2 Abdomen: soft, non-tender, no palpable pulsatile masses NANY Groins: access sites c/d/i with sutures and dermabond. Soft, without hematoma. BLE: warm, no edema or wounds. Neuromotor intact. Palpable pedal pulses. VTE Risk Total Score VTE Prophylaxis - Surgical Aspirin 81 mg, Oral, EC Tab, At Bedtime, Routine, Start 07/02/21 21:00:00 EST, 07/02/21 11:41:00 EST (STEVAN WATKINS) Clopidogrel 75 mg, Oral, Tab, At Bedtime, Start 07/02/21 21:00:00 EST (STEVAN WATKINS) Enoxaparin 40 mg, SubCutaneous, Inj, Daily, Routine, Start 07/03/21 9:00:00 EST, 07/02/21 11:33:00 EST (YAA XIONG) Sequential Compression Device Start: 07/02/21 11:03:00 EST, Bilateral, While in Bed, to nonoperative leg ONLY, Continuous Order (YAA XIONG) Sequential Compression Device Start: 07/02/21 11:03:00 EST, Bilateral, Length: Knee High, While patient is in bed, Continuous Order (YAA XIONG) Assessment/Plan Abdominal aortic aneurysm and iliac stenosis - 07/02/21 (June): 1. Ultrasound-guided bilateral femoral arterial access 2. Endovascular repair of nonruptured infrarenal abdominal aortic aneurysm down to the iliac bifurcation 3. Right common iliac artery stent 4. Left common iliac artery angioplasty - continue asa, plavix, and statin. On prophylactic lovenox while inpatient. - PT- mobilize, currently able to ambulate within room - Labs reviewed - rupa po and voiding - transfer to tele - dispo: possibly home with daughter later this afternoon if BP controlled and with home oxygen (if needed). Hypotension - discrepancy with cuff and arterial line. - hold home meds. - d/c arterial line - continue IVF for now Hypoxia with known COPD and current smoker - wean supplemental oxygen as able - incentive spirometer q1h, discussed with nursing. - continue ProAir inhaler q6h prn - home oxygen walk test ordered. Routine Labs - Last 24 Hours JUL 03 03:55 136 104 9 / 104 4.0 29 L 0.40 \ JUL 03 03:55 \ 12.2 / 8.1 L 142 / 37.0 \ Anion Gap: 7 Low Calcium Level: 7.8 mg/dL Low Imaging Results (Last 24 Hours) No Radiology Results Found Allergies sulfa drugs (Anaphylaxis) documented in this encounter Plan of Treatment Not on file documented as of this encounter Visit Diagnoses Not on filedocumented in this encounter
--- OUTSIDE RECORDS SUMMARY | 2024-10-19 23:53 | XMS_ITS | Encounter Summary ---
Author Organization [employer] Address [address] [place] [address] Care Team Providers Care Practice Business Asst Name Role Phone Unavailable Primary Care Provider Unavailabl e Encounter Details Date Type Department Care Team (Late st Contact Info) Description 07/02/2021 Transcribed Document [facility] [place] Family Medicine [facility] [place] [address] ProviderMorteza MD [address] [place] [address] Social History Tobacco Use Types Packs/Day [...] Conversion Note - Historical Provider, - 07/02/2021 11:03 AM RAILROAD ENGINEER Evaluation, Physical Therapy Entered On: 07/03/2021 11:34 EST Performed On: 07/03/2021 10:10 EST by TARIK SHEPARD PT General Information, PT Visit Type, PT : Initial evaluation Patient Orders : Order Date Order Ordering 07/02/2021 11:03 PT Evaluation and Treatment Ordered By: YAA XIONG PA 07/03/2021 09:54 Consult to Physical Therapy Ordered By: YAA XIONG PA Active Diagnoses : 07/02/2021 12:00 Abdominal aortic aneurysm, without rupture Therapy Diagnosis, PT : PT/OT evals requested due to pt here with endovascular AAA repair. Onset of Problem, PT : 07/02/2021 EST Admission Date : 07/02/2021 06:37 Co-treated by, PT : Occupational Therapist Personal Devices : Personal Devices No Devices Recorded Assistive Devices : Assistive Devices No Devices Recorded Precautions in Place : Fall prevention measures General Information Comment, PT : Pt admitted with AAA and had endovascular repair on 07-02-21, by Dr. Watkins. She has a history of Anxiety, COPD, low back pain radiating to BLE, PVD. TARIK SHEPARD, PT - 07/03/2021 11:22 EST General Status Patient Received Status : Other: Pt was standing at EOB with RN, ready to amb to her commode. Treatment Start Time : 07/03/2021 9:55 EST Patient Left Status : Up in chair, RN/PCT informed, All needs met and within reach Treatment End Time : 07/03/2021 10:10 EST Treatment Time : 15 Minute(s) Actual Treatment Time : 15 Minute(s) TARIK SHEPARD, PT - 07/03/2021 11:22 EST History and Environment Living Situation, Therapy : Home Patient Lives With : Alone Persons Assisting Patient at Home : Alone Professional Skilled Services : None Persons Providing Information : Patient Home Equipment Therapy, PT : None Home Setup : One story Stairs : No TARIK SHEPARD, PT - 07/03/2021 11:22 EST Prior Level of Function PT GRID Prior LOF Ambulation, Household : Independent Prior LOF Ambulation, Community : Independent Prior LOF Bed Mobility : Independent Prior LOF Toileting : Independent Prior LOF Transfer : Independent TARIK SHEPARD, PT - 07/03/2021 11:22 EST Intervention Summary SpO2 Pre-Intervention : 90 % Therapist Assessment Pre-intervention : On room air after using commode. SpO2 During Intervention : 84 % Therapist Assessment During Intervention : after amb 310' on Room Air. Pt refused to walk any further to attempt the 6 minute tests because she feels sinus congestion and this damn mask are the only things keeping her from breathing well. TARIK SHEPARD, PT - 07/03/2021 11:22 EST Upper Extremity Upper Extremity Dominance : Right Right UE Active ROM : WFL Right UE Strength : WFL Left UE Active ROM : WFL Left UE Strength : WFL TARIK SHEPARD, PT - 07/03/2021 11:22 EST Lower Extremity RLE Active ROM : WFL Right LE Strength : WFL LLE Active ROM : WFL Left LE Strength : WFL TARIK SHEPARD, PT - 07/03/2021 11:22 EST Functional Mobility Mobility Grid Stand to Sit : Rehab Complete independence DEVYNDAWNEN, PT - 07/03/2021 11:22 EST Gait Training/Assessment, PT Weight Bearing Status Maintained : Yes Weight Bearing Status : Full Gait Assistance Level : Independent, complete Walking Distance : 310' Ambulatory Devices : Gait belt Gait Deviations : No Gait Training Comment : Pt amb 310' in CTVU on room air with 02 sats dropping to 84%. Gait belt was on pt, but not needed for use as pt is completely ind for amb. TARIK SHEPARD, PT - 07/03/2021 11:22 EST Activity Tolerance, PT Activity Comment : Pt able to use the commode by herself, come to stand by herself and amb 310' with no A.D. and no LOB. TARIK SHEPARD, PT - 07/03/2021 11:22 EST Cognition Assessment, PT Orientation : Oriented x 4 Safety/Judgment Comment : Good Follows Basic Command Assessment : Yes TARIK SHEPARD, PT - 07/03/2021 11:22 EST Edu Topics Physical Therapy Education Grid Balance Training : Returns demonstration Bed Mobility Training : Returns demonstration Gait Training : Returns demonstration Role of Physical Therapy : Verbalizes understanding Transfer Training : Returns demonstration TARIK SHEPARD, PT - 07/03/2021 11:22 EST Indication Assesessment, PT Physical Therapy Indicated : No Physical Therapy Not Indicated : Independent, complete, No skilled services ind., Prior level of function DEVYN TARIK, PT - 07/03/2021 11:22 EST Plan of Care, PT PT Tx Plan/Goals Established w Patient : Yes Reason Tx/Plan Not Established W/ Pt PT : Pt is completely ind for amb 310'. No need for skilled PTx. PT Frequency Rehab : Discontinue TARIK SHEPARD, PT - 07/03/2021 11:22 EST Treatment Note Subjective Comment : Pt complained the entire session that she now has nasal/sinus congestion that is causing her 02 sats to drop. She complained the entire time while amb that the surgical mask is obstructing her breathing. 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 Pt states her daughter is available to help at home if needed. Assessment : Pt is completely, physically ind for mobility and does not need ongoing PTx services while here. Her 02 sats drop with amb and she needs 02 at home per this. Plan for Treatment : DC PTx. TARIK SHEPARD, PT - 07/03/2021 11:22 EST Pain Assessment Pain Scaled Used : 0-10 Pain scale Pain Score During-Intervention : 0 TARIK SHEPARD, PT - 07/03/2021 11:22 EST Image 1 - Images currently included in the form version of this document have not been included in the text rendition version of the form. Anticipated Discharge Needs, OT/PT Anticipated Discharge to : Home, with family care TARIK SHEPARD, PT - 07/03/2021 11:[address] [facility] PT Charges PT Eval Low Complexity : 1 TARIK SHEPADR, PT - 07/03/2021 11:22 EST Electronically signed by Deepak [facility] Conversion Senior Programmer Cerner at 08/31/2022 9:54 PM CDT documented in this encounter Plan of Treatment Not on file documented as of this encounter Visit Diagnoses Not on filedocumented in this encounter
--- OUTSIDE RECORDS SUMMARY | 2024-10-19 23:53 | XMS_ITS | Encounter Summary ---
Author Organization [employer] Address [address] [place] [address] Care Team Providers Care Milk Truck Driver Name Role Phone Unavailable Primary Care Provider Unavailabl e Encounter Details Date Type Department Care Team (Late st Contact Info) Description 07/03/2021 Transcribed Document [facility] [place] [address] [place] [address] ProviderMorteza MD [facility] [place] [address] Social History Tobacco Use Types Packs/Day Years Used Date Smoking Tobacco: Never Assessed Comments Unknown Sex and Gender Information Value Date Recorded Sex Assigned at Female 11/10/2021 7:49 PM CDT Legal Sex Female 7:49 PM CDT Gender Identity Female 11/10/2021 7:49 PM CDT Sexual Orientation Not on file documented as of this encounter Miscellaneous Notes * Cerner Conversion Note - Historical ProviderMD - 07/03/2021 11:34 AM TUNNEL INSPECTOR Discharge Summary, PT Entered On: 07/03/2021 11:35 EST Performed On: 07/03/2021 11:34 EST by TARIK SHEPARD PT Discharge Summary Discharge Summary Provider Notified : Nursing, Physical Therapy, Occupational Therapy Reason for Discharge : Other: No need for ongoing PTx Discharge Summary Comment, PT : Pt was completely ind with mobility, including amb 310' with no A.D. Pt's 02 sats dropped with amb on room air and she will need 02 at home. TARIK SHEPARD, PT - 07/03/2021 11:34 EST Electronically signed by Deepak [facility] Conversion Flight Control Specialist Cerner at 08/31/2022 9:34 PM CDT documented in this encounter Plan of Treatment Not on file documented as of this encounter Visit Diagnoses Not on filedocumented in this encounter
--- OUTSIDE RECORDS SUMMARY | 2024-10-19 23:53 | XMS_ITS | Referral Summary ---
Author Organization [email or web address] Address [address] [place] [address] Care Team Providers Care Blue Line Trimmer Name Role Phone Unavailable Primary Care Provider Unavailabl e Social History Tobacco Use Types Packs/Day Years Used Date Smoking Tobacco: Never Assessed Comments Unknown Sex and Gender Information Value Date Recorded Sex Assigned at Female 11/10/2021 7:49 PM CDT Legal Sex Female 7:49 PM CDT Gender Identity Female 11/10/2021 7:49 PM CDT Sexual Orientation Not on file Plan of Treatment Not on file
--- OUTSIDE RECORDS SUMMARY | 2024-10-19 23:53 | XMS_ITS | Encounter Summary ---
Author Organization [employer] Address [address] [place] [address] Care Team Providers Care Peoplesoft Name Role Phone Unavailable Primary Care Provider Unavailabl e Encounter Details Date Type Department Care Team (Late st Contact Info) Description 07/02/2021 Transcribed Document [facility] [place] [facility] [place] [address] ProviderMorteza MD [facility] [place] [address] Social History Tobacco Use Types Packs/Day [...] Conversion Note - Historical ProviderMD - 07/02/2021 1:28 PM VIRGINIA LINE ATTENDANT Nutrition Assessment Entered On: 07/03/2021 11:07 EST Performed On: 07/03/2021 10:59 EST by RAÚL CHIANG, CLARISSE, LD Nutrition Assessment Nutrition Assessment Reason 2 : Malnutrition Screening Tool Nutrition Assessment Reason : Automatic referral Current Nutrition Regimen Comment : 07/03: Rec'd consult for BMI <19. Spoke with pt s/p AAA repair. Pt confirms significant weight loss over past 4 months d/t iliac stenosis, however does nto feel like her po intake has declined. Report 24#(19.5%) weight loss over 4 months (severe). Observed significant fat and muscle wasting in protrusion of clavicle, buccal muscle loss, tricep fat loss. Pt does not care for cardiac diet- did not like turkey back. Requesting Regular diet. Pt states she does not care for ensure or boost but does have Special K protein shakes at home . Encouraged intake of any protein supplemnent and a high calorie/high protein diet to help regain some lost weight. Dx: s/p AAA repair with iliac stenosis PMH: COPD, PVD Meds: colace, vitD, pepcid Drips: D5+Nacl+Kcl @ 75ml/hr Labs: Cr 0.4 Skin: no breakdown GI: no bm noted Diet: Cardiac Intake <50% of breakfast this am per pt Ht: 65 in Wt: 99# (07/02) UBW: 123# (Mar 2021) BMI: 16.5 IBW: 125#, 79% RAÚL CHIANG RD, - 07/03/2021 10:59 EST Dietitian Malnutrition Assessment Weight Loss, Chronic Illness : Severe: >7.5% past 3 months Physical Findings Body Fat & Muscle Mass : Severe: (obvious) significant muscle wasting &/or loss of subcutaneous fat Physical Findings Fuctional Capacity : Moderate: (suggested) reduced functional capacity Malnutrition Etiology Summary : Chronic illness severe Nutrition Assessment Result : Severe Protein Calorie Malnutrition Nutrition Assessment Completed : Yes Malnutrition Survey Comment : Severe PCM Criteria met: Confirmed 24#(19.5%) weight loss over 4 months (severe). Observed significant fat and muscle wasting in protrusion of clavicle, buccal muscle loss, tricep fat loss, BMI 16.[address], LD - 07/03/2021 10:59 EST Nutrition Diagnoses Nutrient Intake : Chronic disease or condition related malnutrition Nutrient Intake Related to : AAA with iliac stenosis Nutrient Intake As Evidenced by : Confirmed 24#(19.5%) weight loss over 4 months (severe). Observed significant fat and muscle wasting in protrusion of clavicle, buccal muscle loss, tricep fat loss, BMI 16.5 Nutrient Intake Status : Active RAÚL CHIANG RD, LD - 07/03/2021 10:59 EST Nutrition Interventions Meals and Snacks : General/Healthful diet Nutrition Supplement Therapy : Commercial beverage RAÚL CHIANG RD, LD - 07/03/2021 10:59 EST Monitoring/Evaluation Energy Intake : Total energy intake Food Intake : Amount of food Protein Intake : Total protein Weight Status : Weight Maintanence Gastrointestinal Function : Bowel Function RAÚL CHIANG RD, LD - 07/03/2021 10:59 EST Nutrition Recommendations Dietitian Recommendations : 1. Liberalize diet to Regular per pt request. WIll add Magic cup BID (pt declined ensure) Goal: PO intake >50% of meals 2. Weigh pt 2x weekly Goal: healthful weight gain to a BMI 19-25 encouraged High Risk Severe PCM identified 07/03/[address], LD - 07/03/2021 10:59 EST Education Topics, Nutrition Nutrition Education Grid Dietary Supplements : Verbalizes understanding RAÚL CHIANG RD, SHERLEY - 07/03/2021 10:59 EST Electronically signed by Deepak [facility] Conversion Respiratory Therapy Aide Cerner at 08/31/2022 9:54 PM CDT documented in this encounter Plan of Treatment Not on file documented as of this encounter Visit Diagnoses Not on filedocumented in this encounter
[2024-10-19 23:54] VITALS: BP 180/90; PULSE 82; RESP 21; TEMP 36.9; O2SAT 91; BMI 19.2
--- OUTSIDE RECORDS SUMMARY | 2024-10-19 23:54 | XMS_ITS | Encounter Summary ---
Author Organization [employer] Address [address] [place] [address] Care Team Providers Care Train Driver Name Role Phone Unavailable Primary Care Provider Unavailabl e Encounter Details Date Type Department Care Team (Late st Contact Info) Description 07/03/2021 Transcribed Document [facility] [address] [place] [address] Stevan Watkins MD [address] [facility] [place] [address] Social History Tobacco Use Types Packs/Day Years [...] Note - Stevan Watkins MD - 07/03/2021 3:21 PM EST CLINICAL DOCUMENTATION CLARIFICATION FORM: Dear Provider.: Jamil Watkins Date 07/03/21 Please exercise your independent, professional judgment in responding to the clarification form. Clinical indicators are provided on the bottom of this form for your review. Please check appropriate box(es): [ x ] Severe Protein Calorie Malnutrition: [ ] Other Malnutrition (please specify) [ ] Other diagnosis [ ] Unable to determine For continuity of documentation, please document condition throughout progress notes and discharge summary. Thank You. To be completed by CDI/Coding staff for Provider review: Present Clinical Indicators - Signs / Symptoms / Labs Results and Location in Medical Record [ xx ] Malnutrition, Failure to Thrive, Cachexia 07/03 Nutrition: Severe PCM [xx ] BMI of _16.5 07/02 Nutrition: BMI 16.5 Two or More of the Following ASPEN Criteria: [ xx ] Weight Loss 07/03 Nutrition: Significant wt loss 24# (19.5%)over the past 4 months. >7% past 3 months [xx ] Loss of Muscle Mass 07/03 Muscle wasting in protrusion of clavicle, buccal muscle loss [ xx ] Loss of Subcutaneous Fat 07/03 Nutrition: tricep fat loss Present Risk Factors Results and Location in Medical Record [ xx ] COPD 07/02 H&P: COPD [xx ] AAA with iliac stenosis 07/02 H&P; AAA with iliac stenosis [xx] Smoker 07/02 H&P: Smoker Present Treatments Results and Location in Medical Record [xx ] Dietary consult 07/02 Orders: Nutrition consult for BMI <19 [ xx] Nutritional supplements 07/03 Orders: Magic cup BID CDS/ Signature: __Yoon Friend RN CDS Phone #: __[phone] Moderate Malnutrition (in acute illness) Energy Intake: <75% of estimated energy requirement for > 7 days ?? Weight Loss: 1-2%/1 week; 5%/ 1 month; 7.5%/3 months ?? Other: mild body fat loss; mild muscle mass loss; mild fluid accumulation; Severe Malnutrition (in acute illness) ?? Energy Intake: ? 50% of estimated energy requirement for ? 5 days Weight Loss: >2%/1 week; >5%/1 month; >7.5%/3 months ?? Other: moderate body fat loss; moderate muscle mass loss; moderate- severe fluid accumulation; measurably reduced administrative coordinator strength Moderate Malnutrition (in chronic illness) Energy Intake: <75% of estimated energy requirement for ?1 month ?? Weight Loss: 5%/1 month; 7.5%/3 months; 10%/6 months; 20%/1 year ?? Other: mild body fat loss; mild muscle mass loss; mild fluid accumulation Severe Malnutrition (in chronic illness) ?? Energy Intake: ?75% of estimated energy requirement for ?1 month Weight Loss: >5%/1 month; >7.5%/3 months; >10%/6 months; >20%/1 year ?? Other: severe body fat loss; severe muscle mass loss; severe fluid accumulation; measurably reduced administrative coordinator strength This is a permanent part of the Medical Record documented in this encounter Plan of Treatment Not on file documented as of this encounter Visit Diagnoses Not on filedocumented in this encounter
--- OUTSIDE RECORDS SUMMARY | 2024-10-19 23:54 | XMS_ITS | Encounter Summary ---
Author Organization [employer] Address [address] [place] [address] Care Team Providers Care Rn Family Name Role Phone Unavailable Primary Care Provider Unavailabl e Encounter Details Date Type Department Care Team (Late st Contact Info) Description 07/03/2021 Transcribed Document [facility] Family [facility] [place] [address] ProviderMorteza MD [address] [place] [id number] Social History Tobacco Use Types Packs/Day Years [...] Conversion Note - Historical ProviderMD - 07/03/2021 10:28 AM BISQUE PLACER Final Discharge Planning Entered On: 07/03/2021 10:29 EST Performed On: 07/03/2021 10:28 EST by BENTLEY WHITE Rn-Woodworking Machinist Final Discharge Planning Discharge Arrangements : Patient Post-Acute Information Patient Name: ANISHA GRIER Gender: Female : 53 Age: 66 Years No Post-Acute Placement(s) Listed No Post-Acute Service(s) Listed No Curaspan Referral(s) Listed Patient Offered Choice/Affiliations Explained : Yes Designation of Choice Signed : Yes Important Medicare Message Reviewed With : Patient Important Medicare Message Reviewed D/T : 07/03/2021 10:25 EST Physician Notified of Patient Discharge Comment : Pt qualified for home oxygen per walk test; discussed DME provider - [facility] received referral and will deliver portable tank; pt to transfer to floor - anticipate D/C home with daughter this evening; f/u appt w/PCP already made BENTLEY WHITE, Rn-Woodworking Machinist - 07/03/2021 10:28 EST Electronically signed by Deepak [facility] Conversion Recordist Chief Cerner at 08/31/2022 9:43 PM CDT documented in this encounter Plan of Treatment Not on file documented as of this encounter Visit Diagnoses Not on filedocumented in this encounter
--- OUTSIDE RECORDS SUMMARY | 2024-10-19 23:54 | XMS_ITS | Encounter Summary ---
Author Organization [employer] Address [address] [place] [address] Care Team Providers Care Microstrategy Bi Developer Name Role Phone Unavailable Primary Care Provider Unavailabl e Encounter Details Date Type Department Care Team (Late st Contact Info) Description 07/03/2021 Transcribed Document [facility] [place] [facility] [place] [address] ProviderMorteza MD [address] [place] [address] Social History Tobacco Use Types Packs/Day [...] Conversion Note - Historical ProviderMD - 07/03/2021 8:52 AM PARQUET FLOOR LAYER UM Authorization Entered On: 07/03/2021 9:02 EST Performed On: 07/03/2021 8:52 EST by ROLANDO TEJADA, AZAEL-Keg HeaderMerchandise Support Associate Insurance Authorization Authorization and Policy Numbers : Insurance 1 Health Plan: [employer] PPO Policy Number: [id number] Authorization Number: [id number] Insurance Primary Name : Jeancarlos Ryan [id number] Authorization Status-Primary : Notification only Auth/Referral Contact Name-Primary : Romaine Lockhart Authorization Number-Primary : [id number] Authorized Service Begin Date-Primary : 07/02/2021 EST Authorization Comments-Primary : initial clinical faxed via availity. auth# in availity. Historical Authorization Comments-Primary : Comment 1: per [facility] [employer] Choice approved INPT auth# [id number] (CRISTIAN ALVAREZ, Residential Energy Auditor 06/29/2021 13:26) ROLANDO TEJADA RN-Keg Header - 07/03/2021 8:52 EST Secondary Insurance Authorization Authorization and Policy Numbers : Insurance 1 Health Plan: [employer] CHOICE PPO Policy Number: [id number] Authorization Number: [id number] Historical Authorization Comments-Secondary : No Authorization Comments Found ROLANDO TEJADA RN-Keg Header - 07/03/2021 8:52 EST Electronically signed by [facility] Conversion Bath Mixer Cerner at 08/31/2022 9:38 PM CDT documented in this encounter Plan of Treatment Not on file documented as of this encounter Visit Diagnoses Not on filedocumented in this encounter
--- OUTSIDE RECORDS SUMMARY | 2024-10-19 23:54 | XMS_ITS | Encounter Summary ---
Author Organization [employer] Address [address] [place] [address] Care Team Providers Care Nursery School Teacher Name Role Phone Unavailable Primary Care Provider Unavailabl e Encounter Details Date Type Department Care Team (Late st Contact Info) Description 07/03/2021 Transcribed Document [facility] [place] [facility] [place] [address] ProviderMorteza MD [address] [place] [address] Social History Tobacco Use Types Packs/Day Years [...] Conversion Note - Historical ProviderMD - 07/03/2021 8:13 PM CLOTHING PATTERNMAKER Nursing Discharge Summary Entered On: 07/03/2021 20:14 EST Performed On: 07/03/2021 20:13 EST by Que Chao Discharge Documentation Discharge Date/Time : 07/03/2021 19:50 EST Patient Disposition, General : Discharge Discharge To : Home without planned follow-up Mode Of Departure, General Discharge : Wheelchair Accompanied By, Discharge : Daughter Personal Belongings With Patient : Yes Pt's Own Supply of Medications Returned : No patient supply of medications to return Prescriptions Given to Patient : No Medications Given to Patient : Other: oxygen Que Chao - 07/03/2021 20:13 EST Electronically signed by Deepak [facility] Conversion Carry All Driver Cerner at 08/31/2022 9:52 PM CDT documented in this encounter Plan of Treatment Not on file documented as of this encounter Visit Diagnoses Not on filedocumented in this encounter
--- NOTE | 2024-10-19 23:55 | ECG_ITS ---
APPROVED REPORT Exam: Resting ECG HR:84 bpm ECG Measurements Heart Rate 84 AXES OK 121 P 85 QRSd 104 QRS -67 QT 401 T -77 QTc 442 Conclusion SINUS RHYTHM WITH OCCASIONAL VENTRICULAR PREMATURE COMPLEXES INDETERMINATE AXIS INCOMPLETE RIGHT BUNDLE BRANCH BLOCK [90+ ms QRS DURATION, TERMINAL R IN V1/V2, 40+ ms S IN I/aVL/V4/V5/V6] LEFT ANTERIOR FASCICULAR BLOCK [QRS AXIS <= -45, QR IN I, RS IN II] ST DEVIATION AND MODERATE T-WAVE ABNORMALITY, CONSIDER ANTEROLATERAL ISCHEMIA [-0.1+ mV T-WAVE IN V3-V6] ST DEVIATION AND MODERATE T-WAVE ABNORMALITY, CONSIDER INFERIOR ISCHEMIA [-0.1+ mV T-WAVE IN II/aVF] ST depressions in the inferior and lateral leads but no reciprocal elevation, no STEMI Electronically signed by : SELENA BACA, 10/20/2024 03:49:54
--- OUTSIDE RECORDS SUMMARY | 2024-10-19 23:55 | XMS_ITS | Encounter Summary ---
Author Organization [employer] Address [address] [place] [address] Care Team Providers Care Guidance Director Name Role Phone Unavailable Primary Care Provider Unavailabl e Encounter Details Date Type Department Care Team (Late st Contact Info) Description 07/03/2021 Transcribed Document [facility] [address] [place] [address] Stevan Watkins MD [address] [place] [address] Social History Tobacco Use Types Packs/Day Years [...] Note - Stevan Watkins MD - 07/03/2021 3:36 PM EST Please Modify Before Signing CLINICAL DOCUMENTATION CLARIFICATION FORM: Dear : ___Jamil Watkins Date 07/03/21 Please exercise your independent, professional judgment in responding to the clarification form. Clinical indicators are provided on the bottom of this form for your review Please check appropriate box(es): [ ] Acute respiratory failure due to an existing co-morbid condition: ____COPD [ ] Acute respiratory failure related to the surgical procedure [x ] Respiratory insufficiency due to an existing co-morbid condition: ____COPD [ ] Respiratory insufficiency due to the surgical procedure [ ] Other diagnosis [ ] Unable to determine For continuity of documentation, please document condition throughout progress notes and discharge summary. Thank You./ To be completed by CDI/Coding staff for physician review: Present Clinical Indicators - Signs / Symptoms / Labs Results and Location in Medical Record [xx ] Decreased oxygen saturation / Hypoxemia 07/02 Vitals: 02 sat 93% on RA (on admission) 07/02 Vitals: 02 sat 92% on 2L (post-op) @07/02 Vitals: 02 sat 92% on 6L (post-op) @07/03 Vitals: 02 sat 96% on 4L 07/03 PN: pt was Hypoxic overnight, using supplemental 02. Ns sat 84% on Room air [xx ] Increased or prolonged O2 use/ unable to wean 07/03 Orders: orders for home , sats 84% on RA Present Risk Factors Results and Location in Medical Record [xx ] Recent surgery 07/02 Op report: AAA repair with iliac stents [xx ] Chronic lung disease 07/02 H&P: COPD [ xx ] Tobacco abuse / exposure 07/02 Orders: Smoker Present Treatments Results and Location in Medical Record [ xx ] Oxygen / Monitoring oxygenation status 07/02 Orders: 02 4-6L, Continuous pulse ox [xx ] Breathing treatments 07/02 Orders: Duo Neb X1 [ xx ] Home Oxygen 07/03 Orders: pt will home 02 [xx ] Walk test 07/03 Orders: Walk Test pulse ox CDS/ Signature: ___Yoon Friend RN CDS Phone #: __[phone] This is a permanent part of the Medical Record documented in this encounter Plan of Treatment Not on file documented as of this encounter Visit Diagnoses Not on filedocumented in this encounter
--- OUTSIDE RECORDS SUMMARY | 2024-10-19 23:55 | XMS_ITS | Encounter Summary ---
Author Organization [employer] Address [address] [place] [address] Care Team Providers Care Real Estate Transaction Manager Name Role Phone Unavailable Primary Care Provider Unavailabl e Encounter Details Date Type Department Care Team (Late st Contact Info) Description 07/03/2021 Transcribed Document [facility] Family Medicine [address] [place] [address] ProviderMorteza MD [facility] [place] [address] Social History Tobacco Use Types Packs/Day Years [...] Conversion Note - Historical ProviderMD - 07/03/2021 10:09 AM OIL GAS AND PIPE TESTER Event Note Entered On: 07/03/2021 10:10 EST Performed On: 07/03/2021 10:09 EST by BENTLEY WHITE Rn-Shrimp PeelerBranch Administrator Note Event Date/Time : 07/03/2021 10:00 EST Event Location : Other: RA sat @ rest 84% Description of Event : RA sat @ rest 84% BENTLEY WHITE Rn-Shrimp Peeler - 07/03/2021 10:09 EST documented in this encounter Plan of Treatment Not on file documented as of this encounter Visit Diagnoses Not on filedocumented in this encounter
--- OUTSIDE RECORDS SUMMARY | 2024-10-19 23:55 | XMS_ITS | Encounter Summary ---
Author Organization [employer] Address [address] [place] [address] Care Team Providers Care Blocklayer Name Role Phone Unavailable Primary Care Provider Unavailabl e Encounter Details Date Type Department Care Team (Late st Contact Info) Description 07/03/2021 Transcribed Document [address] [address] Stevan Watkins MD [address] [facility] [place] [address] Social History Tobacco Use Types Packs/Day Years [...] Note - Stevan Watkins MD - 07/03/2021 4:51 PM EST Patient: ANISHA GRIER Age: 66 Years Sex: Female : 1955 Admit Date 07/02/2021 06:37 Discharge Date 07/03/21 Attending Physician: Dr. Stevan Watkins MD Discharge Diagnosis Abdominal aortic aneurysm and iliac stenosis PAD Anxiety COPD Hemorrhoids HLD (hyperlipidemia) HTN (hypertension) Chronic back pain Recent weight loss Brief Medical History 66-year-old female with challenging aortic morphology due to aortic aneurysm disease as well as occlusive disease at the aortic and iliac bifurcation. She has been offered an endovascular repair for prevention of aortic rupture. Will be challenging due to her iliac stenosis which will also have to be treated during the process of aortic aneurysm repair. Operative Procedures - 07/02/21 (June): 1. Ultrasound-guided bilateral femoral arterial access 2. Endovascular repair of nonruptured infrarenal abdominal aortic aneurysm down to the iliac bifurcation 3. Right common iliac artery stent 4. Left common iliac artery angioplasty Hospital Course Ms. Grier is a 66-year-old femalepatient who was admitted under the services of Dr. Stevan Watkins. After informed consent was given, the patient was taken to the operating room where sheunderwent a endovascular abdominal aneurysm repair with RIGHT common iliac artery stent and LEFT common iliac artery angioplasty. Post procedure, shewas admitted to an ICU bed for monitoring and pain management. She was noted to be hypoxic and hypotensive. Her blood pressure improved with fluids and holding her antihypertensive medications. Her oxygenation improved with supplemental oxygen and she qualified for home oxygen. After a stable hospital course the patient was ready for transfer back to home with family and home oxygen. Pain was controlled. Diet and activity was well tolerated. Vital Signs T: 36.4 ??C TMIN: 36.4 ??C TMAX: 37.1 ??C HR: 80(Monitored) BP: 119/59 BP: 90/37(Line) SpO2: 92% Oxygen Settings (Last) Oxygen Therapy Mode: Room air (07/03/21 11:00:00) Oxygen Flow Rate: 1 Liter/Min (07/03/21 09:00:00) Physical Exam AAOx4, NAD, sitting up in bedside chair, no family at bedside Respiratory: normal effort on 1L NCO2 Abdomen: soft, non-tender, no palpable pulsatile masses NANY Groins: access sites c/d/i with sutures and dermabond. Soft, without hematoma. BLE: warm, no edema or wounds. Neuromotor intact. Palpable pedal pulses [1] Discharge Disposition Home Discharge Follow Up ALBERT LIMON (REF)MD-FAM - In 6 days 07/08/2021 F/u with Dr. Watkins 08/04/21 at 1:30pm, CTA AAA prior. Discharge Medications (8) Active aspirin 81 mg, Oral, At Bedtime clonazePAM 0.5 mg, Oral, BID gabapentin 400 mg, Oral, TID [place] 7.5 mg-325 mg oral tablet 1 Tab, Oral, TID Plavix 75 mg oral tablet , Oral, At Bedtime ProAir HFA 90 mcg/inh inhalation aerosol 2 Puff, PRN, Inhalation, Q6H rosuvastatin 20 mg, Oral, At Bedtime Vitamin D3 50,000 Units, Oral, Weekly Code Status Start: 07/02/21 11:03:00 EST, Full Code, Continuous Order Condition on Discharge Stable Consulting Physicians YING HARMAN MD-ANS Current Diet Order Diet, Adult - Ordered -- Start: 07/03/21 10:58:00 EST, Regular Diet Patient Discharge Summary Orders Discharge Follow Up Instructions: [address] Watkins with CTA AAA protocol prior. F/u Information will be mailed to patient regarding imaging., F/u with PCP within 2-3 days of discharge to monitor blood pressure. Follow Up Instructions: , Order Comment: Please [...] until 24 hours after taking pain medication Pending Labs No pending labs. [1] Vascular SOAP-June; YAA XIONG PA 07/03/2021 08:43 EST documented in this encounter Plan of Treatment Not on file documented as of this encounter Visit Diagnoses Not on filedocumented in this encounter
--- OUTSIDE RECORDS SUMMARY | 2024-10-19 23:55 | XMS_ITS | Encounter Summary ---
Author Organization [employer] Address [address] [place] [address] Care Team Providers Care Air Quality Chemist Name Role Phone Unavailable Primary Care Provider Unavailabl e Encounter Details Date Type Department Care Team (Late st Contact Info) Description 07/03/2021 Transcribed Document [facility] Family Medicine [address] [place] [address] ProviderMorteza MD [facility] [place] [address] Social History Tobacco Use Types Packs/Day Years [...] Conversion Note - Historical ProviderMD - 07/03/2021 5:14 PM INSIDE SALES ADVISOR Stroke/Warfarin Instructions Entered On: 07/03/2021 17:14 EST Performed On: 07/03/2021 17:14 EST by Darby Troncoso RN Stroke/Warfarin Instructions Stroke/TIA Discharge Ins : N/A Warfarin Discharge Ins : N/A Darby Troncoso, RN - 07/03/2021 17:14 EST documented in this encounter Plan of Treatment Not on file documented as of this encounter Visit Diagnoses Not on filedocumented in this encounter
--- OUTSIDE RECORDS SUMMARY | 2024-10-19 23:55 | XMS_ITS | Encounter Summary ---
Author Organization [employer] Address [address] [place] [address] Care Team Providers Care Linseed Oil Refiner Name Role Phone Unavailable Primary Care Provider Unavailabl e Encounter Details Date Type Department Care Team (Late st Contact Info) Description 06/29/2021 Transcribed Document [facility] [place] [facility] [place] [address] ProviderMorteza MD [facility] [place] [address] Social History Tobacco Use Types [...] Cerner Conversion Note - Historical ProviderMD - 06/29/2021 1:26 PM CONCRETE STONE FINISHER UM Authorization Entered On: 06/29/2021 13:26 EST Performed On: 06/29/2021 13:26 EST by CRISTIAN ALVAREZ Absorption Plant Operator Primary Insurance Authorization Authorization and Policy Numbers : Insurance 1 Health Plan: [employer] CHOICE PPO Policy Number: [id number] Authorization Number: Insurance Primary Name : Jeancarlos Ryan [id number] Authorization Status-Primary : Notification only Auth/Referral Contact Name-Primary : Romaine Richy Authorization Number-Primary : [id number] Authorized Service Begin Date-Primary : 07/02/2021 EST Authorization Comments-Primary : per ETHAN [employer] Choice approved INPT auth# [id number] Historical Authorization Comments-Primary : No Authorization Comments Found CRISTIAN ALVAREZ, Absorption Plant Operator - 06/29/2021 13:26 EST documented in this encounter Plan of Treatment Not on file documented as of this encounter Visit Diagnoses Not on filedocumented in this encounter
--- OUTSIDE RECORDS SUMMARY | 2024-10-19 23:55 | XMS_ITS | Encounter Summary ---
Author Organization [employer] Address [address] [place] [address] Care Team Providers Care Proof Plate Maker Name Role Phone Unavailable Primary Care Provider Unavailabl e Encounter Details Date Type Department Care Team (Late st Contact Info) Description 06/29/2021 Transcribed Document [facility] Family Medicine [facility] [place] [address] ProviderMorteza MD [address] [place] [id number] Social History Tobacco Use Types Packs/Day Years [...] Conversion Note - Historical ProviderMD - 06/29/2021 10:22 AM CABINET BUILDER Spiritual Care Assessment Entered On: 07/02/2021 9:27 EST Performed On: 07/02/2021 9:03 EST by EUGENE ROONEY General Information Referred by : Patient Referral Reason Comment : PreSurgery visit Ministry Provided to : Patient, Family/Significant other EUGENE ROONEY - 07/02/2021 9:26 EST Interventions Emotional Support : Empathic/Engaged listening, Family/Significant other supported, Feelings expressed Spiritual and Rastafari : Prayer shared, Spiritual/Rastafari support provided Change, Adjustment and Loss : Relationships/Community/Support system discussed EUGENE ROONEY - 07/02/2021 9:26 EST Outcomes Affect/Behavior Changed : Comforted Appreciation Expressed : Yes Thoughts, Feelings and Emotions Exp. : Yes Supportive Relationships Described : Daughter at bedside EUGENE ROONEY 07/02/2021 9:26 EST documented in this encounter Plan of Treatment Not on file documented as of this encounter Visit Diagnoses Not on filedocumented in this encounter
--- OUTSIDE RECORDS SUMMARY | 2024-10-19 23:55 | XMS_ITS | Clinical Summary ---
Author Organization Healthcare Address [address] [id number] Care Team Providers Care Safety Leader Name Role Phone Mode Meek MD Primary Care Provider [phone] Social History Tobacco Use Types Packs/Day Years Used Date Smoking Tobacco: Never Assessed Comments Unknown Sex and Gender Information Value Date Recorded Sex Assigned at Not on file Legal Sex Female 12:09 PM EST Gender Identity Not on file Sexual Orientation Not on file Plan of Treatment Health Maintenance Due Date Last Done Comments [facility]-Bone Density Scan 1955 [facility]-Depression Screening 1955 [facility]-Hepatitis C Screening 1955 [facility]-Medicare Annual Wellness (AWV) 1955 [facility]-/Child/Adol SDOH Screenings 1955 [facility]- SDOH Screenings 1972 [facility]-Adult SDOH Screenings 1972 CT Colonography 1999 Colonoscopy 1999 FIT-DNA 1999 FIT 1999 FOBT 1999 Sigmoidoscopy 1999 [facility]-Colorectal Cancer Screening 1999 [facility]-Breast Cancer Screening 2004 [facility]-Pneumococcal Vaccine: 50 + Years (1 of 1 - PCV) 2004 [facility]-Zoster Vaccines (1 of 2) 2004 [id number]-37 Vaccine (2 - 20 24-25 season) 2024 08/19/2020 [facility]-Influenza Vaccine (Seaso n Ended) 2025 [facility]-RSV Vaccine: 60+ Years o r (1 - 1-dose 75+ series) 2029 [facility]-DTaP,Tdap,and Td Vaccine s (2 - Td or Tdap) 03/09/2031 03/09/2021 HPV Vaccines Aged Out No longer eligi ble based on patient's age to complete this topic [facility]-HIB Vaccines Aged Out No longer e ligible based on patient's age to complete this topic [facility]-Hepatitis A Vaccines Aged Out No longer eligible based on patient's age to complete this topic [facility]Y-IPV Vaccines Aged Out No longer e ligible based on patient's age to complete this topic [facility]Y-Rotavirus Vaccines Aged Out No lo nger eligible based on patient's age to complete this topic Insurance [employer] MEDICARE Care Teams Safety Leader Relationship Specialty Start Date End Date Mode Meek MD [address] [place] [address] PCP - General 05/16/20
--- OUTSIDE RECORDS SUMMARY | 2024-10-19 23:55 | XMS_ITS | Encounter Summary ---
Author Organization [employer] Address [address] [place] [address] Care Team Providers Care Subassembly Supervisor Name Role Phone Unavailable Primary Care Provider Unavailabl e Encounter Details Date Type Department Care Team (Late st Contact Info) Description 07/03/2021 Transcribed Document [facility] [place] [facility] [place] [address] ProviderMorteza MD [facility] [place] [address] Social History Tobacco Use Types [...] Conversion Note - Historical ProviderMD - 07/03/2021 2:51 PM THREAD SPINNER Patient Education Materials Follows: Hypertension, Adult High blood pressure (hypertension) is [...] Limit how much you use to: ? 0?1 drink a day for women. ? 0?2 drinks a day for men. ? Be aware of how much alcohol is in your drink. In the [place] one drink equals one 12 oz bottle of beer (355 mL), one 5 oz glass of wine (148 mL), or one 1? oz glass of hard liquor (44 mL). [...] provider. This is important. Medicines ??? Take rajw-bda-vymguno and prescription medicines only as told by [...] provider. Document Revised: 01/10/2019 Document Reviewed: 01/10/2019 [employer] Patient Education ? 2020 [employer] Caregiving Home Oxygen Use, Adult When a medical [...] There are two types of oxygen concentrator machines?stationary and portable. ? A stationary oxygen concentrator [...] provider or a person from your medical technologist clinical company will show you how to use [...] ??? Air-dry it. ??? Replace it every 2?4 weeks. ??? If you have an infection, such as a cold or pneumonia, change the cannula when you get better. Mask ??? Replace it every 2?4 weeks. ??? If you have an infection, such as a cold or pneumonia, change the mask when you get better. Humidifier bottle ??? Wash the bottle between each refill: ? Wash it with soap and warm water. ? Rinse it thoroughly. ? Clean it and its top with a disinfectant cooker cleaner. ? Air-dry it. ? Make sure [...] equipment ??? Change any extra tubing every 1?3 months. ??? Follow instructions from your health [...] aerosol sprays. ? Rubbing alcohol. ? Hand sonar watchstander. ??? When you go to a restaurant [...] move around. Follow instructions from your medical technologist clinical company about how to safely secure your [...] from your health care provider and medical technologist clinical company before you travel. General safety tips ??? If you use an oxygen cylinder, make sure it is in a stand or secured to an object that will not move (fixed object). ??? If you use liquid oxygen, make sure its container is kept upright at all times. ??? If you use an oxygen concentrator: ? Tell your electric company. Make sure you are given priority [...] tubing. Where to find more information ??? [place] [employer]: www.lung.org/oxygen Contact a health care [...] provider or a person from your medical technologist clinical company will show you how to use [...] provider. Document Revised: 07/03/2020 Document Reviewed: 04/29/2020 [employer] Patient Education ? 2020 [employer] Procedures Abdominal Aortic Aneurysm Endograft Repair, Care After [...] these instructions at home: Medicines ??? Take rxsl-fwe-qyddtop and prescription medicines only as told by [...] and water are not available, use hand sonar watchstander. ? Change your dressing as told by [...] Get up to take short walks every 1?2 hours. This is important to improve blood [...] Get up to take short walks every 1?2 hours. ??? Let your health care provider [...] provider. Document Revised: 04/17/2020 Document Reviewed: 04/17/2020 [employer] Patient Education ? 2020 [employer] Pulmonary Medicine Steps to Quit Smoking Smoking tobacco is [...] a prescription, and some you can buy nyst-pml-wygkujh. Some medicines may contain a drug called [...] encourage you. ??? Call a phone quitline (2-891-LGNV-NOW), reach out to support groups, or work [...] quitting tobacco. These problems are very bad 2?3 days after you quit, but they do not often last for more than 2?3 weeks. You may get these symptoms: ??? [...] Week 3 and afterward After the first 2?3 weeks of quitting, you may start to [...] provider. Document Revised: 01/25/2020 Document Reviewed: 07/21/2019 [employer] Patient Education ? 2020 [employer]. documented in this encounter Plan of Treatment Not on file documented as of this encounter Visit Diagnoses Not on filedocumented in this encounter
--- OUTSIDE RECORDS SUMMARY | 2024-10-19 23:56 | XMS_ITS | Clinical Summary ---
Author Organization [employer] Address [address] [place] [address] Care Team Providers Care Stick Welder Name Role Phone Unavailable Primary Care Provider [...]
--- OUTSIDE RECORDS SUMMARY | 2024-10-19 23:56 | XMS_ITS | Encounter Summary ---
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 Adult Entered On: 06/29/2021 10:22 EST Performed On: 06/29/2021 10:10 EST by BENTLEY ABURTO RN Vital Measurements Temperature Source : Oral Temperature Mode : Fahrenheit Temperature, Fahrenheit : 98.2 Deg F Clinical Temperature, C : 36.8 Deg C Pulse Method : Pulse Oximetry Peripheral Pulse Rate : 109 bpm (HI) Respiratory Rate : 20 Breaths/Min Blood Pressure Location : Arm, right upper Blood Pressure Source : Non-Invasive BP Device Blood Pressure Position : Sitting Systolic Blood Pressure : 150 mmHg (HI) Diastolic Blood Pressure : 83 mmHg Oxygen Saturation : 98 % Oxygen Therapy Mode : Room air STALIN LOMAS RN - 06/30/2021 9:35 EST Height and Weight, Clinical Dosing Height Source : Chart Height Entry Format : [place] Height, Feet : 5 ft(Converted to: 152 cm, 60 Inch) Height, Inches : 5 Inch(Converted to: 0 ft 5 Inch, 12.70 cm) Clinical Height : 165.1 cm Weight Source : Standing scale Weight Entry Format : [place] Clinical Dosing Weight : 45.09 kg Weight, Pounds : 99.2 lb Body Surface Area (BSA) : 1.47 m2 Body Mass Index : 16.5 kg/m2 (<LLOW) [place] Body Weight : 57 kg STALIN LOMAS RN - 06/30/2021 9:35 EST Health Histories Smoking Status : 10 or more cigarettes (1/2 pack or more)/day in last 30 days Smokeless Tobacco Status : Never Desires Tobacco Cessation Medication : No Reason for No Tobacco Cessation Medication : Refuses FDA approved medications Implant/Device Type, Crude Oil Treater and Model : right leg stent BENTLEY ABURTO RN - 06/29/2021 10:10 EST Social History (As Of: 06/29/2021 10:22:55 EST) Tobacco: 10 or more cigarettes (1/2 pack or more)/day in last 30 days Smoking Status. Never Smokeless Tobacco Status. Years of Use: 54. Packs/Tins Daily: 1.5. Last Used: Jun 2021. (Last Updated: 06/29/2021 10:11:26 EST by BENTLEY ABURTO RN) Alcohol: Alcohol Use History No. (Last Updated: 06/29/2021 10:11:35 EST by BENTLEY ABURTO RN) Substance Abuse: Drug Use Hx: No. Use in Last 12 Months: No. (Last Updated: 06/29/2021 10:11:40 EST by BENTLEY ABURTO, AZAEL) Infectious Disease History Does patient have symptoms of COVID-19? : No STALIN LOMAS RN - 06/30/2021 9:41 EST Has the Patient Been Tested for COVID-19 in the last 14 days? : Yes, Patient stated results Negative Bryan Eldridge Rn - 07/02/2021 8:39 EST Does the Patient state known exposure to a COVID-19 positive case in the last 14 days? : No Does Patient want a COVID-19 Vaccine? : No STALIN LOMAS RN - 06/30/2021 9:41 EST Infectious Disease Risk Screening Grid Cough < 2 wks of unknown origin : NO Cough > 2 weeks : NO Blood in Sputum : NO Fever or self-reported Fever : NO Rash of unknown origin : NO Headache : NO Stiff neck : NO Night Sweats : NO Unexplained Weight Loss : NO Diarrhea (3 episode per day) : NO STALIN LOMAS RN - 06/30/2021 9:41 EST INF Disease TB Screening Calc : 0 STALIN LOMAS RN - 06/30/2021 9:41 EST Patient Vaccinated for COVID-19 : Partially vaccinated or need booster Physical contact outside US in the last 30 days : No Hospitalized in Foreign Country : No Infectious Disease History : Chicken pox/Shingles, Measles, Mumps, Scarlet fever INF Disease Recent Travel Calc : 0 BENTLEY ABURTO RN - 06/29/2021 10:10 EST COVID19 PreProcedure Screening Has patient been isolated since the test : Yes Exposed to COVID19 symptoms since test? : No Bryan Eldridge Rn - 07/02/2021 8:39 EST Date PreProcedure COVID-19 test known? : Yes Date of PreProcedure COVID-19 : 06/30/2021 EST STALIN LOMAS RN - 06/30/2021 9:41 EST Is this an Emergent or Add on Procedure? : No BENTLEY ABURTO RN - 06/29/2021 10:10 EST Anesthesia/Transfusion History Family History of Anesthesia Reaction : No prior transfusion(s) Transfusion History : Prior anesthesia reaction Type of Anesthesia Reaction : Other: hallucinations after nasal surgery 2006 Family History of Anesthesia Reaction : None BENTLEY ABURTO RN - 06/29/2021 10:10 EST Functional Assessment Functional ADL Evaluation Index EBN Bathing : Independent (2) Dressing : Independent (2) Toileting : Independent (2) Transferring Bed or Chair : Independent (2) Continence : Independent (2) Feeding : Independent (2) BENTLEY ABURTO RN - 06/29/2021 10:10 EST ADL Index Score : 12 BENTLEY BAURTO RN - 06/29/2021 10:10 EST Advance Directive Patient has Advance Directive *Q : No, patient refuses Advance Directive information BENTLEY ABURTO RN - 06/29/2021 10:10 EST Spiritual/Cultural Needs Any Spiritual/Cultural Needs or Requests : Yes Spiritual/Cultural Needs Comment : prayer on DOS 07/02/2021 Spiritual/Cultural Needs Comment : prayer on DOS 07/02/2021 BENTLEY ABURTO RN - 06/29/2021 10:10 EST [place] Suicide Severity Rating Scale (C-SSRS) CSSRS Past Month Wish to be : No CSSRS Past Month Suicidal Thoughts : No CSSRS Lifetime Suicide Behavior : No Suicide Severity Rating Score : 0 Suicide Severity Rating : No Additional Care Required at this time BENTLEY ABURTO RN - 06/29/2021 10:10 EST Psychosocial History Do You Have a History of the Following? : Anxiety Currently in Unsafe Situation : No BENTLEY ABURTO RN - 06/29/2021 10:10 EST Teaching/Learning Assessment Barriers To Learning : None evident STALIN LOMAS RN - 06/30/2021 9:41 EST Education Topics, Periop Preadmission Perioperative Education Grid Arrival Time/Place : Verbalizes understanding CHG Preoperative Bathing/Cloths : Verbalizes understanding NPO Status/Directions : Verbalizes understanding Preprocedure Tests/Labs : Verbalizes understanding Remove Body Piercings : Verbalizes understanding Responsible Adult : Verbalizes understanding Take/Hold Medications Pre-Procedure : Verbalizes understanding STALIN LOMAS RN - 06/30/2021 9:41 EST General Info Preferred Name : Iram Support Person/Pt Rep Contact Information : [phone] daughter [place]a [place] Want Family/Rep/Phys Notified of Admit : No Emergency Contact #1 : [place]a [place] Emergency Contact #1 cell Emergency Contact #1 Relationship : daughter Emergency Contact #2 : - Emergency Contact #2 Phone Number : - Emergency Contact #2 Relationship : - Chief Complaint : to have aortic stent placed for aneurysm Information Obtained From : Patient Primary Language : Stateless Communication Barrier : None Saw Tailer Needed : No BENTLEY ABURTO RN - 06/29/2021 10:10 EST Anjel Scale Anjel Sensory Perception : Slightly limited Anjel Moisture : Rarely moist Anjel Activity : Walks occasionally Anjel Mobility : Slightly limited Anjel Nutrition : Adequate Anjel Friction and Shear : No apparent problem Anjel Score : 19 BENTLEY ABURTO RN - 06/29/2021 10:10 EST Sleep Apnea Risk Assmt BMI Greater Than 35 kg/m2 : No Neck Circumference Greater Than 40 cm : No STOP-BANG Sleep Apnea Risk Level Score : 2 STALIN LOMAS RN - 06/30/2021 9:41 EST Hx of Obstructive Sleep Apnea Diagnosis : No Snore Loudly : No Tired, Fatigued, or Sleepy During Day : No Observed Stopping Breathing During Sleep : No Have/Are Being Treated for Hypertension : Yes Age over 50 Years Old : Yes Gender Male : No BENTLEY ABURTO RN - 06/29/2021 10:10 EST documented in this encounter Plan of Treatment Not on file documented as of this encounter Visit Diagnoses Not on filedocumented in this encounter
--- OUTSIDE RECORDS SUMMARY | 2024-10-19 23:57 | XMS_ITS | Encounter Summary ---
Author Organization [employer] Address [address] [place] [address] Care Team Providers Care Personal Lines Advisor Name Role Phone Unavailable Primary Care Provider Unavailabl e Encounter Details Date Type Department Care Team (Late st Contact Info) Description 07/02/2021 Transcribed Document [facility] [place] [facility] [place] [address] ProviderMorteza MD [facility] [place] [address] Social History Tobacco Use Types [...] Conversion Note - Historical Provider, - 07/02/2021 6:36 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 Admission History, Adult Entered On: 07/02/2021 18:39 EST Performed On: 07/02/2021 14:00 EST by Darby Troncoso RN Advance Directive Patient has Advance Directive *Q : No, patient refuses Advance Directive information Darby Troncoso RN - 07/02/2021 18:36 EST Anesthesia/Transfusion History Family History of Anesthesia Reaction : No prior transfusion(s) Transfusion History : Prior anesthesia reaction Type of Anesthesia Reaction : Other: hallucinations after nasal surgery 2006 Family History of Anesthesia Reaction : None Darby Troncoso RN - 07/02/2021 18:36 EST Anticipated Discharge Needs Discharge To, Anticipated : Home Darby Troncoso RN - 07/02/2021 18:36 EST Education Topics, Admission Orientation DCP GENERIC CODE Advance Directives : Verbalizes understanding Allergy Band Applied : Verbalizes understanding Assessment/Vital Signs : Verbalizes understanding Bed Control : Verbalizes understanding Call Light : Verbalizes understanding Confidentiality : Verbalizes understanding Diet/Room Service : Verbalizes understanding Fall Prevention : Verbalizes understanding Hand Hygiene : Verbalizes understanding Healthcare Provider Visit : Verbalizes understanding ID Band Applied : Verbalizes understanding Isolation Precautions : Verbalizes understanding Orientation to Room/Bathroom : Verbalizes understanding Patient Bill of Rights : Verbalizes understanding Patient Rights/Responsibilities : Verbalizes understanding Patient Safety : Verbalizes understanding Personal Privacy Code : Verbalizes understanding Rapid Response Initiated by Patient/Family : Verbalizes understanding Rounding : Verbalizes understanding Siderails use/risks : Verbalizes understanding Skin Precautions : Verbalizes understanding Smoking Policy : Verbalizes understanding Telemetry Monitoring : Verbalizes understanding Television/Phone : Verbalizes understanding Visiting Policy : Verbalizes understanding Darby Troncoso RN - 07/02/2021 18:36 EST Functional Assessment Living Situation : Home Patient Lives With : Alone Persons Assisting Patient at Home : Alone Current Daily Living Assistance : None Mobility Assistance Prior to Admission : Independent [place]EV[place]O Hx Falls Immediate/Within 3 Months : No Current Home Treatments : None Darby Troncoso RN - 07/02/2021 18:36 EST General Info Preferred Name : Iram Legal Guardian : No Support Person/Pt Rep Contact Information : [phone] daughter Marlena [place] Want Family/Rep/Phys Notified of Admit : No Emergency Contact #1 : [place]a [place] Emergency Contact #1 cell Emergency Contact #1 Relationship : daughter Emergency Contact #2 : [place] Emergency Contact #2 Emergency Contact #2 Relationship : daughter Identified Medical Decision Maker : Anisha Grier Identified Medical Decision Maker Number of People in Class : 1 Identified Medical Decision Maker Class : self 2nd Ident. Medical Decision Maker : [place] 2nd Ident. Medical Decision Maker [phone] Secondary Number of People in Class : 4 2nd Ident. Medical Decision Maker Class : Adult Children Chief Complaint : to have aortic stent placed for aneurysm Information Obtained From : Patient Primary Language : [place]olan Communication Barrier : None Farm Technician Needed : Darby Herron RN - 07/02/2021 18:36 EST Fall Risk Scales ABCs Fall Injury Risk Identification : Bones, Coagulation, Surgery ABC Fall Injury Risk : Moderate to high injury risk AZEVED[place] Hx Falls Immediate/Within 3 Months : No [place] Secondary Diagnosis : Yes AZEV[place]O Use of Ambulatory Aid : Bed rest/Nurse assist AZEVEOD IV Therapy or IV Access : Yes [place] Gait/Transferring : Normal, bedrest, immobile [place] Mental Status : Overestimates/Forgets limitations [place] Fall Risk Score : 50 [place]EV[place] Fall Scale Risk Level : 46 or > High Risk [place] Fall Interventions : Adequate lighting, Assistive devices within reach, Bed in low position, Hourly comfort/safety rounds, Personal items within reach, Reinforced to call for assistance before getting out of bed, Room free of clutter/spills, Upper side-rails up, Wheels locked, Wires/Cords secured Fall Moderate to High Risk Interventions : Patient room close to nurses station, Transport methods appropriate to patient Barriers to Learning : None evident Fall Risk Scale Calc Temp : 0 Darby Troncoso RN - 07/02/2021 18:36 EST Health Histories Smoking Status : 10 or more cigarettes (1/2 pack or more)/day in last 30 days Smokeless Tobacco Status : Never Desires Tobacco Cessation Medication : Yes Implant/Device Type, Rotary Drier Operator and Model : right leg stent Darby Troncoso RN - 07/02/2021 18:36 EST Social History (As Of: 07/02/2021 18:39:47 EST) Tobacco: 10 or more cigarettes (1/2 pack or more)/day in last 30 days Smoking Status. Never Smokeless Tobacco Status. Years of Use: 54. Packs/Tins Daily: 1.5. Last Used: Jun 2021. (Last Updated: 06/29/2021 10:11:26 EST by BENTLEY ABURTO, AZAEL) Alcohol: Alcohol Use History No. (Last Updated: 06/29/2021 10:11:35 EST by BENTLEY ABURTO RN) Substance Abuse: Drug Use Hx: No. Use in Last 12 Months: No. (Last Updated: 06/29/2021 10:11:40 EST by BENTLEY ABURTO, AZAEL) Height and Weight, Clinical Dosing Height Source : Chart Height Entry Format : [place] Height, Feet : 5 ft(Converted to: 152 cm, 60 Inch) Height, Inches : 5 Inch(Converted to: 0 ft 5 Inch, 12.70 cm) Clinical Height : 165.1 cm Weight Source : Standing scale Weight Entry Format : [place] Clinical Dosing Weight : 45.09 kg Weight, Pounds : 99.2 lb Body Surface Area (BSA) : 1.47 m2 Body Mass Index : 16.5 kg/m2 (<LLOW) [place] Body Weight : 57 kg Darby Troncoso RN - 07/02/2021 18:36 EST Infectious Disease History Does patient have symptoms of COVID-19? : No Has the Patient Been Tested for COVID-19 in the last 14 days? : Yes, Patient stated results Negative Does the Patient state known exposure to a COVID-19 positive case in the last 14 days? : No Patient Vaccinated for COVID-19 : Partially vaccinated or need booster Does Patient want a COVID-19 Vaccine? : No Darby Troncoso RN - 07/02/2021 18:36 EST Infectious Disease Risk Screening Grid Cough < 2 wks of unknown origin : NO Cough > 2 weeks : NO Blood in Sputum : NO Fever or self-reported Fever : NO Rash of unknown origin : NO Headache : NO Stiff neck : NO Night Sweats : NO Unexplained Weight Loss : NO Diarrhea (3 episode per day) : NO Darby Troncoso RN - 07/02/2021 18:36 EST Physical contact outside US in the last 30 days : No Hospitalized in Foreign Country : No Infectious Disease History : Chicken pox/Shingles, Measles, Mumps, Scarlet fever INF Disease TB Screening Calc : 0 INF Disease Recent Travel Calc : 0 Darby Troncoso RN - 07/02/2021 18:36 EST Tetanus Immunization Status Previous Tetanus Immunizations : No qualifying data available. Tetanus Immunization : Unknown Darby Troncoso RN - 07/02/2021 18:36 EST Influenza Vaccine Asmt, Adult Previous Vaccines from Immunization Schedule : Previous Vaccines and Immunizations SARS-CoV-2 (COVID-19) Ad26 vacc, recomb: 0 unknown unit (08/19/20 00:00:00) Influenza Immunization, Current Season : Unknown Inactivated Flu Vaccine Contraindications : No contraindications to inactivated influenza vaccine Transplant Workup/Recent Transplant : No Order for Influenza Vaccine : Declined Vaccination Darby Troncoso RN - 07/02/2021 18:36 EST Pneumococcal Vaccine Previous Vaccines from Immunization Schedule : Previous Vaccines and Immunizations SARS-CoV-2 (COVID-19) Ad26 vacc, recomb: 0 unknown unit (08/19/20 00:00:00) Pneumonia Immunization Received : Unknown Pneumococcal Risk Assessment < Age 65 : N/A- Patient 65 years of age or older Pneumococcal Vaccine Contraindications : No contraindications to pneumococcal vaccine Transplant Workup/Recent Transplant : No Order for Pneumococcal Vaccine : Declined Vaccination Darby Troncoso RN - 07/02/2021 18:36 EST Order Details Transport Mode Order Detail : Wheelchair Isolation Precautions Order Detail : Standard Precautions Order Detail : 0 IV Order Detail : 1 Oxygen Order Detail : 1 Nurse Collect Order Detail : 1 Lift/Transfer : Moderate assist Central Line Order Detail : No Room Service : Appropriate Arterial Line : Yes Patient Needs Meds Crushed/Liquid : No Darby Troncoso RN - 07/02/2021 18:36 EST Nutrition History Eating Poorly Due to Decreased Appetite : No Unplanned Weight Loss in Past 3-6 Months : No Malnutrition Screening Tool Total(mal) : 0 Malnutrition Screening Tool Risk Level : Patient not at risk Darby Troncoso RN - 07/02/2021 18:36 EST [place] Suicide Severity Rating Scale (C-SSRS) CSSRS Past Month Wish to be : No CSSRS Past Month Suicidal Thoughts : No CSSRS Lifetime Suicide Behavior : No Suicide Severity Rating Score : 0 Suicide Severity Rating : No Additional Care Required at this time Darby Troncoso RN - 07/02/2021 18:36 EST Psychosocial History Do You Have a History of the Following? : Anxiety Currently in Unsafe Situation : No Darby Troncoso RN - 07/02/2021 18:36 EST Sleep Apnea Risk Assmt Hx of Obstructive Sleep Apnea Diagnosis : No Snore Loudly : No Tired, Fatigued, or Sleepy During Day : No Observed Stopping Breathing During Sleep : No Have/Are Being Treated for Hypertension : Yes BMI Greater Than 35 kg/m2 : No Age over 50 Years Old : Yes Neck Circumference Greater Than 40 cm : No Gender Male : No STOP-BANG Sleep Apnea Risk Level Score : 2 Darby Troncoso RN - 07/02/2021 18:36 EST Spiritual/Cultural Needs Any Spiritual/Cultural Needs or Requests : Yes Spiritual/Cultural Needs Comment : prayer on DOS 07/02/2021 Spiritual/Cultural Needs Comment : prayer on DOS 07/02/2021 Darby Troncoso, RN - 07/02/2021 18:36 EST Valuables and Belongings Valuables and Belongings : Clothing, Personal items, No comfort items, No jewelry, No personal devices, No assistive devices, No respiratory devices, No medications Clothing : Common streetwear Clothing Disposition : Bedside, With patient Personal Items : Cell phone, Purse, Wallet Personal Items Disposition : Bedside, With patient Darby Troncoso RN - 07/02/2021 18:36 EST documented in this encounter Plan of Treatment Not on file documented as of this encounter Visit Diagnoses Not on filedocumented in this encounter
--- OUTSIDE RECORDS SUMMARY | 2024-10-19 23:57 | XMS_ITS | Encounter Summary ---
Author Organization [employer] iatives Address [address] [place] [address] Care Team Providers Care Sheriff'S Detective Name Role Phone Unavailable Primary Care Provider Unavailabl e Encounter Details Date Type Department Care Team (Late st Contact Info) Description 07/02/2021 Transcribed Document [facility] [place] Family Medicine [facility] [place] [address] ProviderMorteza MD [address] [place] [address] Social History Tobacco Use Types Packs/Day [...] - Historical ProviderMD - 07/02/2021 10:[address] PHOTOGRAPHER [facility] Main OR IntraOp Summary Primary Physician: MIKA THIBODEAUX MD-SUR Finalized Date/Time: 07/03/21 09:03:09 Pt. Name: RACHEL GRIER/Sex: 1955 Female Med Rec #: [id number] Physician: MIKA THIBODEAUX MD-SUR Financial #: [id number] Pt. Type: I Room/Bed: [facility] Admit/Disch: 07/02/21 06:37:00 - Institution: [facility] IntraOp Case Attendance Entry 1 Entry 2 Entry 3 Case Attendee MIKA THIBODEAUX MD-SUR BARRETT, LAURIE, MD-BIRD DAILEY APRN, MOTORS AND CONTROLS TESTER Role Performed Surgeon/Proceduralist, Anesthesiologist of MOTORS AND CONTROLS TESTER/Nurse Financial Compliance Manager First Record Time In 07/02/21 09:53:00 07/02/21 09:53:00 07/02/21 09:53:00 Time Out 07/02/21 11:17:00 07/02/21 11:17:00 07/02/21 11:17:00 Procedure Aortic Stent Placement Aortic Stent Placement Aortic Stent Placement Endovascular Endovascular Endovascular Other Attendee Superficial Wound Closed By: Last Modified By: Kiki Mcallister RN Napier, Elizabeth A, Kiki Hoffmann RN 07/02/21 11:17:08 07/02/21 11:17:08 07/02/21 11:17:08 Entry 4 Entry 5 Entry 6 Case Attendee DOLORES MAHONEY SRNA Napier, Elizabeth A, Sadaf Kim RN Role Performed Student Candy Maker Helper, First Candy Maker Helper, Second Time In 07/02/21 09:53:00 07/02/21 09:53:00 07/02/21 09:53:00 Time Out 07/02/21 11:17:00 07/02/21 11:17:00 07/02/21 11:17:00 Procedure Aortic Stent Placement Aortic Stent Placement Aortic Stent Placement Endovascular Endovascular Endovascular Other Attendee Superficial Wound Closed By: Last Modified By: Kiki Mcallister RN Napier, Elizabeth A, Kiki Hoffmann RN 07/02/21 11:17:08 07/02/21 11:17:08 07/02/21 11:17:08 Entry 7 Entry 8 Case Attendee Dianna Ly CAMPBELL, JANET, Cardiovascular EQUINE BREEDER Justowriter Operator Role Performed Justowriter Operator Justowriter Operator Time In 07/02/21 09:53:00 07/02/21 09:53:00 Time Out 07/02/21 11:17:00 07/02/21 11:17:00 Procedure Aortic Stent Placement Aortic Stent Placement Endovascular Endovascular Other Attendee Superficial Wound Closed By: Last Modified By: Kiki Mcallister RN Napier, Elizabeth A, RN 07/02/21 11:17:08 07/02/21 11:17:08 [facility] IntraOp Case Attendance Audit 07/02/21 11:17:08 Doors Prefitter: EANAPIER Modifier: EANAPIER 1 <+> Time Out 1 <*> Procedure Aortic Stent Placement Endovascular 2 <+> Time Out 2 <*> Procedure Aortic Stent Placement Endovascular 3 <+> Time Out 3 <*> Procedure Aortic Stent Placement Endovascular 4 <+> Time Out 4 <*> Procedure Aortic Stent Placement Endovascular 5 <+> Time Out 5 <*> Procedure Aortic Stent Placement Endovascular 6 <+> Time Out 6 <*> Procedure Aortic Stent Placement Endovascular 7 <+> Time Out 7 <*> Procedure Aortic Stent Placement Endovascular 8 <+> Time Out 8 <*> Procedure Aortic Stent Placement Endovascular 07/02/21 10:29:31 Doors Prefitter: EANAPIER Modifier: EANAPIER <+> 1 Procedure 2 <*> Procedure Aortic Stent Placement Endovascular 3 <*> Procedure Aortic Stent Placement Endovascular 4 <*> Procedure Aortic Stent Placement Endovascular 5 <*> Procedure Aortic Stent Placement Endovascular 6 <*> Procedure Aortic Stent Placement Endovascular 7 <*> Procedure Aortic Stent Placement Endovascular 8 <*> Procedure Aortic Stent Placement Endovascular 07/02/21 10:29:18 Doors Prefitter: SCOTTNAPIER Modifier: EANAPIER 2 <+> Time In 2 <*> Procedure Aortic Stent Placement Endovascular 3 <+> Time In 3 <*> Procedure Aortic Stent Placement Endovascular 4 <+> Time In 4 <*> Procedure Aortic Stent Placement Endovascular 5 <+> Time In 5 <*> Procedure Aortic Stent Placement Endovascular 6 <+> Time In 6 <*> Procedure Aortic Stent Placement Endovascular 7 <+> Time In 7 <*> Procedure Aortic Stent Placement Endovascular 8 <+> Time In 8 <*> Procedure Aortic Stent Placement Endovascular 07/02/21 10:28:42 Doors Prefitter: JANESSAPIPEGGY Modifier: EANAPIER <+> 2 Case Attendee <+> 2 Role Performed <+> 2 Procedure <+> 3 Case Attendee <+> 3 Role Performed <+> 3 Procedure <+> 4 Case Attendee <+> 4 Role Performed <+> 4 Procedure <+> 5 Case Attendee <+> 5 Role Performed <+> 5 Procedure <+> 6 Case Attendee <+> 6 Role Performed <+> 6 Procedure <+> 7 Case Attendee <+> 7 Role Performed <+> 7 Procedure <+> 8 Case Attendee <+> 8 Role Performed <+> 8 Procedure [facility] IntraOp Case Times Entry 1 Patient In Room Time 07/02/21 09:53:00 Out Room Time 07/02/21 11:17:00 Anesthesia Start Time 07/02/21 09:53:00 Stop Time 07/02/21 11:17:00 Surgery / Procedure Times Start Time 07/02/21 10:16:00 Stop Time 07/02/21 10:59:00 Last Modified By: Kiki Mcallister RN 07/02/21 11:16:51 [facility] IntraOp Case Times Audit 07/02/21 11:16:51 Doors Prefitter: EANAPIER Modifier: EANAPIER <+> 1 Out Room Time <+> 1 Stop Time 07/02/21 10:58:54 Doors Prefitter: EANAPIER Modifier: EANAPIER <+> 1 Stop Time 07/02/21 10:17:34 Doors Prefitter: EANAPIER Modifier: EANAPIER <+> 1 Start Time [facility] IntraOp Communication Entry 1 Entry 2 Communication To Family/Significant other Other Comment PACU Communication By Date and Time Last Modified By: Kiki Mcallister RN Napier, Elizabeth A, RN 07/02/21 10:37:31 07/02/21 10:37:31 [facility] IntraOp Departure from OR Entry 1 Integumentary Assessment Integumentary WDL Assessment WDL Transfer/Handoff Transfer to PACU Phase I Handoff Method Bedside/Face to face Post-op Transport Bed (including Via specialty) Patient Transport BIRD EDWARD, Accompanied by RAFIQ FERNANDEZ HALL, ADAM SRNA, SRNA Transfer/Handoff ICU BED REQUESTED Comments Last Modified By: Kiki Mcallister RN 07/02/21 10:37:51 [facility] IntraOp Dressing and Packing Entry 1 Type Dressing Location GROIN Wound Dressing Item Skin Closure Glue Applied By MIKA THIBODEAUX MD-WYATT Last Modified By: Kiki Mcallister RN 07/02/21 10:35:55 [facility] IntraOp Fire Risk Assessment Entry 1 Fire Info Surgical Site or 0- No Incision Above the Xyphoid Open O2 Source 1- Yes (Mask or Cannula) Available Ignition 0- No (ESU, Laser, Light Source) Fire Risk 1 Assessment Score Fire Score Fire Risk Yes Assessment Complete Fire Risk Kiki Mcallister RN Assessment Verified By Fire Risk 07/02/21 10:29:00 Assessment Verified Date/Time Fire Risk Standard Fire Yes Safety Precautions Followed Last Modified By: Kiki Mcallister RN 07/02/21 10:28:54 [facility] IntraOp General Case Progressive Assembler And Fitter 1 Case Information OR OR 20 [facility] Case Level 1 Room Verified Yes Wound Class 1 - Clean Specialty Endovascular Anesthesia Type MAC ASA Class 3 Diagnosis Preop Diagnosis AAA Postop Same As Preop Yes Postop Diagnosis AAA Wound Class Definitions Last Modified By: Kiki Mcallister RN 07/02/21 10:25:15 [facility] IntraOp Implant Log Entry 1 Entry 2 Entry 3 Type Implant (Synthetic) Implant (Synthetic) Implant (Synthetic) Implant Log Implant Type Tissue Implant Type Implant CLOSURE SYS PERCLOSE [id number] BLLN VBX Identification [id number] [id number] Description Implant Quantity 3 1 1 Implant Site MAIN BODY RIGHT COMMON ILIAC Implant Identification Model Number Implant [id number] Identification Serial Number Implant Identification Lot Number Implant Price Lab:Vasc Dev Wl Apex & Assc:Med Prdt Identification Tile Decorator Name: Implant [id number] Identification Catalog Number Implant Size 6F 26MM X 12MM X 12CM 8MM X 59 MM Implant Has an Yes Yes Yes Expiration Date Implant Expiration 03/15/23 07/28/23 11/13/23 Date Wasted Radioactive Material Time Implanted Tissue Implant Continue for Tissue Implant Documentation Tissue Identification Number Graft Prep Per Tile Decorator Instructions: Tissue Preparation Method: Reconstitution Solution: Reconstitution Solution Lot Number Reconstitution Solution Expiration Date: Thawing Solution Thawing Solution Lot Number Thawing Solution Expiration Date Preparation Materials, Other Preparation Materials, Other Lot Number Preparation Materials, Other Expiration Date Tissue Prepared/Processed By Tile Decorator Paperwork Completed Implant Type Comment Last Modified By: Kiki Mcallister RN Napier, Elizabeth A, RN Napier, Elizabeth A, RN 07/02/21 10:23:11 07/02/21 10:32:04 07/02/21 10:35:29 Entry 4 Entry 5 Type Implant (Synthetic) Implant (Synthetic) Implant Log Implant Type Tissue Implant Type Implant GRFT EXCLUDER GRFT EXCLUDER Identification [id number] Description Implant Quantity 1 1 Implant Site LEFT COMMON ILIAC RIGHT COMMON ILIAC Implant Identification Model Number Implant [id number] Identification Serial Number Implant Identification Lot Number Implant Wl Apex & Assc:Med Prdt Wl Apex & Assc:Med Prdt Identification Tile Decorator Name: Implant [id number] Identification Catalog Number Implant Size 165MM X 12MM X 10 CM 165MM X 12MM X 14 CM Implant Has an Yes Yes Expiration Date Implant Expiration 02/19/24 05/04/24 Date Wasted Radioactive Material Time Implanted Tissue Implant Continue for Tissue Implant Documentation Tissue Identification Number Graft Prep Per Tile Decorator Instructions: Tissue Preparation Method: Reconstitution Solution: Reconstitution Solution Lot Number Reconstitution Solution Expiration Date: Thawing Solution Thawing Solution Lot Number Thawing Solution Expiration Date Preparation Materials, Other Preparation Materials, Other Lot Number Preparation Materials, Other Expiration Date Tissue Prepared/Processed By Tile Decorator Paperwork Completed Implant Type Comment Last Modified By: Kiki Mcallister RN Napier, Elizabeth A, RN 07/02/21 10:53:25 07/02/21 10:53:25 [facility] IntraOp Implant Log Audit 07/02/21 10:53:25 Doors Prefitter: EANAPIER Modifier: EANAPIER <+> 4 Implant Identification Description <+> 4 Implant Identification Serial Number <+> 4 Implant Identification Tile Decorator Name: <+> 4 Implant Size <+> 4 Implant Expiration Date <+> 4 Implant Site <+> 4 Implant Quantity <+> 4 Implant Identification Catalog Number <+> 4 Implant Has an Expiration Date <+> 4 Type <+> 5 Implant Identification Description <+> 5 Implant Identification Serial Number <+> 5 Implant Identification Tile Decorator Name: <+> 5 Implant Size <+> 5 Implant Expiration Date <+> 5 Implant Site <+> 5 Implant Quantity <+> 5 Implant Identification Catalog Number <+> 5 Implant Has an Expiration Date <+> 5 Type 07/02/21 10:35:29 Doors Prefitter: EANAPIER Modifier: EANAPIER <+> 3 Implant Identification Description <+> 3 Implant Identification Serial Number <+> 3 Implant Identification Tile Decorator Name: <+> 3 Implant Size <+> 3 Implant Expiration Date <+> 3 Implant Site <+> 3 Implant Quantity <+> 3 Implant Identification Catalog Number <+> 3 Implant Has an Expiration Date <+> 3 Type 07/02/21 10:32:04 Doors Prefitter: JASKARAN Modifier: EANAPIER <+> 2 Implant Identification Description <+> 2 Implant Identification Serial Number <+> 2 Implant Size <+> 2 Implant Expiration Date <+> 2 Implant Site <+> 2 Implant Quantity <+> 2 Implant Has an Expiration Date <+> 2 Type [facility] IntraOp Intraoperative Assessment Entry 1 Handoff Method Online nursing summary Valid History / Yes Physical in Chart Preoperative Yes Checklist Reviewed/Evaluated Allergies Reviewed Yes Patient is Latex No Sensitive Isolation Not applicable Precautions Noted Level of WDL Consciousness (WDL = Alert, Oriented to Person, Place, and Time) Skin Assessment Yes Verified Present Upon IVs Arrival to OR Last Modified By: Kiki Mcallister RN 07/02/21 10:13:59 [facility] IntraOp Intraoperative Equipment Entry 1 Type Monitoring Equipment Intraop Monitoring Electrocardiogram Three lead placement (ECG) Electrode Placement Blood Pressure Non-Invasive BP Device Source Blood Pressure Arm, left upper Location Pulse Oximeter Hand, left Probe Site Antiembolic Devices Scopes Photo/Video Documentation Last Modified By: Kiki Mcallister RN 07/02/21 10:36:06 [facility] IntraOp Medication Admin Entry 1 Entry 2 Entry 3 Medication/Irrigant NETTA VISIPAQUE 320MG 150 NETTA NACL 0.9PCT HPRN lidocaine 1% 50ml vial 200ML --[id number] 1000U .5L -[id number] - [id number] Combo Med List Time Administered Route of contrast flush SUB Q Administration Dose Dose 90 2000 10 Unit of Measure ml units ml Volume Administered By MIKA THIBODEAUX MD-SUR ABEDI, NICK NIMA, MD-SUR ABEDI, NICK NIMA, MD-SUR Procedure Irrigation Irrigant Volume In Irrigant Volume Out Last Modified By: Kiki Mcallister RN Napier, Elizabeth A, RN Napier, Elizabeth A, RN 07/02/21 10:59:07 07/02/21 10:36:18 07/02/21 10:36:18 [facility] IntraOp Medication Admin Audit 07/02/21 10:59:07 Doors Prefitter: SCOTTRYANLILIANA Modifier: SCOTTNAPIER <+> 1 Dose [facility] IntraOp Patient Positioning Entry 1 Procedure Aortic Stent Placement Endovascular Body Position Supine Left Arm Position Tucked and padded at side Right Arm Position Tucked and padded at side Left Leg Position Uncrossed, parallel Right Leg Position Uncrossed, parallel Feet Uncrossed Yes Pressure Points Yes Checked Positioning Devices Head Rest, Safety Strap, Thighs, Pad, Elbow, Pad, Heel Positioned By Kiki Mcallister RN, Sadaf Lam RN, MIKA THIBODEAUX MD-WYATT, BIRD EDWARD, NATIONAL RECRUITER, MOTORS AND CONTROLS TESTER Position Verified Positioning Yes Verified by Anesthesia Positioning Yes Verified by Surgeon Last Modified By: Kiki Mcallister RN 07/02/21 10:36:48 [facility] IntraOp Sign In Entry 1 Patient, Site, Yes Procedure Identified Surgical Consent Yes Confirmed Relevant Surgical Yes Documents Available Surgical Site N/A Marked by person performing procedure Anesthesia Machine Yes Check Completed Medication Checks Yes Completed Allergies Yes Airway Difficult Yes Airway/Aspiration Risk Difficult Yes Airway/Aspiration Intervention Equipment Available Blood Loss Risk Yes Blood Loss Yes Intervention Equipment Prepared and Ready Blood Identifiers Yes Verified Per Policy Hypothermia Risk Yes Warming Measures Yes Taken Last Modified By: Kiki Mcallister RN 07/02/21 10:29:17 [facility] IntraOp Sign Out Entry 1 RN Confirmation Surgical Yes Procedure(s) Identified Instrument, Sponge N/A and Sharps Counts Correct/Documented Equipment Problems N/A Documented Specimen Labeled N/A Correctly Urinary Catheter N/A Documented in IView Wound Yes classification reviewed, verified and updated post case in both the General Case Data and Procedure segments Dior Patient Yes Recovery Concerns Reviewed with Anesthesia Provider, Surgeon and RN Dior Patient Yes Management Concerns Reviewed with Anesthesia Provider, Surgeon and RN Safety Checklist Yes Elements Complete? RN Sign Out Kiki Mcallister RN Signature RN Sign Out 07/02/21 11:17:00 Signature Date/Time Plan of Care Outcome - Fire Risk OUTCOME STATEMENT: Goal met Patient is free from injury related to surgical fire Plan of Care Outcome - Pt Positioning OUTCOME STATEMENT: Goal met Absence of signs and symptoms of positioning injury. Plan of Care Outcome - Skin Prep OUTCOME STATEMENT: Goal met Intraoperative care is consistent with measures to prevent infection Plan of Care Outcome - Xray/Images OUTCOME STATEMENT: Goal met Absence of observable signs or symptoms of radiation injury Plan of Care Outcome - Counts OUTCOME STATEMENT: Goal met Absence of signs and symptoms of injury related to extraneous objects Last Modified By: Kiki Mcallister RN 07/02/21 11:17:00 [facility] IntraOp Sign Out Audit 07/02/21 11:17:00 Doors Prefitter: JASKARAN Modifier: MEHNAZER <+> 1 RN Sign Out Signature Date/Time [facility] IntraOp Skin Prep Entry 1 Procedure Aortic Stent Placement Endovascular Prescribed Yes Pre-Surgical Prep Completed Prep Area NIPPLES TO KNEES Intraop Prep Integumentary WDL Assessment WDL Prep Agents Chloraprep Hair Removal Methods Clipper/Scissors Last Modified By: Kiki Mcallister RN 07/02/21 10:25:42 [facility] IntraOp Surgical Procedures Entry 1 Procedure Aortic Stent Placement Endovascular Additional ENDO REPAIR AAA Procedure Description Primary Procedure Yes Primary Surgeon MIKA THIBODEAUX MD-WYATT Start 07/02/21 10:16:00 Stop 07/02/21 10:59:00 Anesthesia Type MAC Specialty Endovascular Wound Class 1 - Clean Last Modified By: Kiki Mcallister RN 07/02/21 11:01:01 [facility] IntraOp Surgical Procedures Audit 07/02/21 11:01:01 Doors Prefitter: JASKARAN Modifier: MEHNAZER 1 <*> Procedure Aortic Stent Placement Endovascular 1 <+> Stop 1 <*> Additional Procedure Description (ENDO REPAIR AAA) [facility] IntraOp Temp Regulation Devices Entry 1 Temp Regulation Temperature Forced Air Warming Regulation Device device Temperature Upper body Regulation Site Temperature Device 43 C Setting Temperature BIRD EDWARD, Regulation Device NATIONAL RECRUITER, MOTORS AND CONTROLS TESTER Applied by Last Modified By: Kiki Mcallister RN 07/02/21 10:36:57 [facility] IntraOP Time Out Entry 1 Procedure to be Aortic Stent Placement Performed Endovascular Time Out Time Out Pause Time 07/02/21 10:11:00 All activity Yes suspended (unless life threatening emergency) Team Verbally Correct patient Confirms Information identity, Correct side and site are marked, Consent form is present and accurate, Agreement on the procedure to be done, Correct patient position, Relevant images/results properly labeled/appropriately displayed, Confirm antibiotics have been administered, Confirm the skin prep has dried, Confirm prosthesis/implant/devic e is present, Performed in location of procedure after prepped/draped Antibiotic Yes Prophylaxis Administered Or In Progress Within the Last 60 Minutes Beta Valentino N/A Administered Venous Yes Thromboembolism Prophylaxis Required Anticipated Critical Events Surgeon None expected Anesthesia Provider Patient specific concerns Nursing Assures Sterility of instruments, Equipment concerns or issues, Implant Availability Essential Imaging Yes Labeled and Displayed Last Modified By: Kiki Mcallister RN 07/02/21 10:13:57 [facility] IntraOp X-Ray and Images Entry 1 X-Ray/Imaging Type Fluoroscopy Fluoroscopy Type Fixed Exposure Time 7.1 MINUTES Last Modified By: Kiki Mcallister RN 07/02/21 10:58:39 Case Comments <None> Finalized By: XI JUAN Document Signatures Signed By: Kiki Mcallister RN 07/02/21 11:17 XI JUAN 07/03/21 09:03 Unfinalized History Date/Time Username Reason for Unfinalizing Freetext Reason for Unfinalizing 07/03/21 08:59 [email or web address] Correct Billing Electronically signed by Deepak [facility] Conversion Grain Manager Cerner at 08/31/2022 9:33 PM CDT documented in this encounter Plan of Treatment Not on file documented as of this encounter Visit Diagnoses Not on filedocumented in this encounter
--- OUTSIDE RECORDS SUMMARY | 2024-10-19 23:57 | XMS_ITS | Encounter Summary ---
Author Organization [email or web address] Address [address] [place] [address] Care Team Providers Care Wastewater Design Engineer Name Role Phone Unavailable Primary Care Provider Unavailabl e Encounter Details Date Type Department Care Team (Late st Contact Info) Description 07/02/2021 Transcribed Document [facility] [place] Family Medicine [address] [place] [address] ProviderMorteza MD [facility] [place] [address] Social History Tobacco Use Types Packs/Day Years [...] Conversion Note - Historical ProviderMD - 07/02/2021 11:33 AM OPTOMETRIST Pain Assessment Entered On: 07/03/2021 5:09 EST Performed On: 07/02/2021 21:17 EST by Que Chao Intervention Information: morphine Performed by Que Chao on 07/02/2021 20:47:00 EST morphine,2mg IV Push,Peripheral Line 3,Pain Pain Assessment Pain Assessment : Follow-up assessment Pain Scale Goal : 6 Que Chao - 07/03/2021 5:09 EST documented in this encounter Plan of Treatment Not on file documented as of this encounter Visit Diagnoses Not on filedocumented in this encounter
--- OUTSIDE RECORDS SUMMARY | 2024-10-19 23:57 | XMS_ITS | Encounter Summary ---
Author Organization [email or web address] Address [address] [place] [address] Care Team Providers Care Hogshead Cooper Name Role Phone Unavailable Primary Care Provider Unavailabl e Encounter Details Date Type Department Care Team (Late st Contact Info) Description 07/02/2021 Transcribed Document [facility] [facility] [place] [address] ProviderMorteza MD [address] [place] [address] Social History Tobacco Use Types Packs/Day [...] Conversion Note - Historical ProviderMD - 07/02/2021 10:30 AM RETAIL TEAM LEADER [facility] Main OR Preop Summary Primary Physician: MIKA THIBODEAUX MD-SUR Finalized Date/Time: 07/02/21 09:52:28 Pt. Name: ANISHA GRIER/Sex: 1955 Female Med Rec #: [id number] Physician: MIKA THIBODEAUX MD-SUR Financial #: [id number] Pt. Type: I Room/Bed: ASA/4 Admit/Disch: 07/02/21 06:37:00 - Institution: [facility] PreOp Case Times Entry 1 In Preop 07/02/21 08:25:00 Ready for Holding n/a Room Patient Ready for 07/02/21 09:45:00 Surgery Patient Out of Preop 07/02/21 09:51:00 Patient Out of n/a Holding Room Last Modified By: Bryan Eldridge Rn 07/02/21 09:52:26 [facility] PreOp Case Times Audit 07/02/21 09:52:26 [employer] Principal: [id number] Modifier: [id number] <+> 1 Patient Out of Preop <+> 1 Patient Ready for Surgery Finalized By: Bryan Eldridge Rn Document Signatures Signed By: Bryan Eldridge Rn 07/02/21 09:52 Electronically signed by Deepak [facility] Conversion Top Lift Scourer Cerner at 08/31/2022 9:38 PM CDT documented in this encounter Plan of Treatment Not on file documented as of this encounter Visit Diagnoses Not on filedocumented in this encounter
--- OUTSIDE RECORDS SUMMARY | 2024-10-19 23:57 | XMS_ITS | Data Portability ---
Author Organization [employer] [place] - [place] Address [address] [place] [address] Assessment No assessment recorded. Plan of Treatment Reminders Order Date Submit Date Provider Last Modified By Organization Details Last Modified Time Details Appointments None recorded. Lab lipid panel, serum [facility]24 [facility]25 [facility] [address] [place], [address], 5 08:12:45 CBC w/ auto diff 2024 025 [facility] [address] [place], [address], 5 08:12:44 CMP, serum or plasma 2024 025 GINO [facility]), [address] [place], [address], 5 08:12:45 TSH + free T4, serum 2024 025 [facility] [address] [place], [address], 5 08:12:44 HbA1c (hemoglobin A1c), blood 2024 025 [facility] [address] [place], [address], 5 08:12:46 cobalamin and folate panel, serum [address] [facility]), [address] [place], [address], 5 08:12:46 vitamin D, 25-hydroxy, total, serum [address] [facility]), [address] [place], [address], 5 08:12:47 noninvasive colorectal cancer DNA + occult blood screening, QL, stool 2024 025 [email or web address] [facility] (Cologuard Orders Only), [address], [address], [place], [address], 5 08:18:57 lipid panel, serum [address] [facility]), [address] [place], [address], 4 08:13:11 CBC w/ auto diff [address] [facility]), [address] [place], [address], 4 08:13:10 CMP, serum or plasma [address] [facility]), [address] [place], [address], 4 08:13:10 HbA1c (hemoglobin A1c), blood [address] [facility]), [address] [place], [address], 4 08:13:12 vitamin B12 + folate, serum or blood [address] [facility]), [address] [place], [address], 4 08:13:12 vitamin D, 25-hydroxy, total, serum 2023 024 GINO [facility] [address], [place], [address], 4 08:13:13 TSH + free T4, serum 2023 024 GINO [facility] ([place]), [address], [place], [address], 4 08:13:09 unlisted lab - toxassure flex 19, [id number] 2023 024 GINO [facility] ([place]), [address], [place], [address], 4 20:07:28 Referral None recorded. Procedures None recorded. Surgeries None recorded. Imaging LDCT, chest, for lung cancer screening - first avail. [address] ([facility]), [address], [place], [address], 5 09:13:15 Medication Orders losartan 50 mg tablet 2024 025 GINO [facility], [address] [place] [address], [address], 5 20:15:21 gabapentin 800 mg tablet 2024 025 [facility], [facility] [place], [address], 5 14:15:29 Medrol (Perez) 4 mg tablets in a dose pack 2023 025 [facility], [address] [place] [address], [address], 5 13:14:38 albuterol sulfate HFA 90 mcg/actuati on aerosol inhaler 2023 024 [facility], [address] [place] [address], [address], 4 15:17:33 Trelegy Ellipta 100 mcg-62.5 mcg-25 mcg powder for inhalation 2023 [facility]INO [facility], [address] , [place], [address], 5 15:34:38 clopidogrel 75 mg tablet 2023 GINO [facility], [address] , [place], [address], 4 15:32:48 losartan 50 mg tablet 2023 [facility], [address] , [place], [address], 4 15:32:49 gabapentin 800 mg tablet 2023 024 [facility], [address] [facility], [place], [address], 5 17:32:22 Patient TargetsNo targets recorded. Patient InstructionsNo instructions recorded. Reason for Referral None Reported. Results Created Date Observation Date Name Description Value Unit Range Abnormal Flag Note LastModifiedBy Organization Detail LastModifiedTime 04/10/20 24 04/17/2024 TOXAS SURE FLEX 19, UR summary report FINAL ===== ===== ===== ===== ===== ===== ===== ===== ===== ===== ===== ===== ===== === Bup/N aloxo ne, MS, Ur RFX Gabap entin , MS, Ur RFX ToxAs sure Flex 19, Ur Methy lphen idate , MS, Ur RFX ===== ===== ===== ===== ===== ===== ===== ===== ===== ===== ===== ===== ===== === Test Resul t Flag Units Drug Prese nt Bupre norph ine 261 ng/mg creat Norbu preno rphin e >1449 ng/mg creat Nalox one 159 ng/mg creat Sourc e of bupre norph ine is a sched uled presc ripti on medic ation . Norbu preno rphin e is an expec shonda metab olite of bupre norph ine. Gabap entin PRESE NT ===== ===== ===== ===== ===== ===== ===== ===== ===== ===== ===== ===== ===== === Test Resul t Flag Units Ref Range Creat inine 69 mg/dL >=20 ===== ===== ===== ===== ===== ===== ===== ===== ===== ===== ===== ===== ===== === Decla red Medic ation s: Medic ation list was not provi ded. ===== ===== ===== ===== ===== ===== ===== ===== ===== ===== ===== ===== ===== === For clini devin consu ltati on, pleas e call . ===== ===== ===== ===== ===== ===== ===== ===== ===== ===== ===== ===== ===== === Not Available [facility] ([facility]) [address] [facility], [place], [address], 04/17/2024 20:07:27 11/26/04/17/2024 TOXAS SURE FLEX 19, UR pdf . Not Available [facility] ([facility]) [address] [place], [address], 04/17/2024 20:07:27 04/10/20 24 04/17/2024 TOXAS SURE FLEX 19, UR creatinine 69 mg/dL REFER ENCE RANGE : Ref Range >=20 Not Available [facility] ([facility]) [address] [facility], [place], [address], 04/17/2024 20:07:27 04/10/20 24 04/17/2024 TOXAS SURE FLEX 19, UR amphetamines ia Negati ve NG/mL cutoff :300 Not Available [facility] ([facility]) [address] [place], [address], 04/17/2024 20:07:27 04/10/20 24 04/17/2024 TOXAS SURE FLEX 19, UR benzodiazepi xiang Negati ve Not Available [facility] ([facility]) [address] [place], [address], 04/17/2024 20:07:27 04/10/20 24 04/17/2024 TOXAS SURE FLEX 19, UR diazepam Not Detect ed NG/mg _crea t Not Available [facility] ([facility]) [address] [place], [address], 04/17/2024 20:07:27 04/10/20 24 04/17/2024 TOXAS SURE FLEX 19, UR desmethyldia zepam Not Detect ed NG/mg _crea t Not Available [facility] ([facility]) [address] [place], [address], 04/17/2024 20:07:27 04/10/20 24 04/17/2024 TOXAS SURE FLEX 19, UR oxazepam Not Detect ed NG/mg _crea t Not Available [facility] ([facility]) [address] [place], [address], 04/17/2024 20:07:27 04/10/20 24 04/17/2024 TOXAS SURE FLEX 19, UR temazepam Not Detect ed NG/mg _crea t Expec shonda metab olism of benzo diaze pine class drugs : Paren t Drug Detec shonda Metab olite s ----- ----- - ----- ----- ----- ----- Diaze gladys: Desme thyld iazep am, Temaz epam, Oxaze gladys Chlor diaze poxid e: Desme thyld iazep am, Oxaze gladys Clora zepat e: Desme thyld iazep am, Oxaze gladys Halaz epam: Desme thyld iazep am, Oxaze gladys Temaz epam: Oxaze gladys Oxaze gladys: None Not Available [facility] ([facility]) [address] [place], [address], 04/17/2024 20:07:27 04/10/20 24 04/17/2024 TOXAS SURE FLEX 19, UR alprazolam Not Detect ed NG/mg _crea t Not Available [facility] ([facility]) [address] [place], [address], 04/17/2024 20:07:27 04/10/20 24 04/17/2024 TOXAS SURE FLEX 19, UR alpha-hydrox yalprazolam Not Detect ed NG/mg _crea t Not Available [facility] ([facility]) [address] [place], [address], 04/17/2024 20:07:27 04/10/20 24 04/17/2024 TOXAS SURE FLEX 19, UR desalkylflur azepam Not Detect ed NG/mg _crea t Not Available [facility] ([facility]) [address] [place], [address], 04/17/2024 20:07:27 04/10/20 24 04/17/2024 TOXAS SURE FLEX 19, UR lorazepam Not Detect ed NG/mg _crea t Not Available [facility] ([facility]) [address] [place], [address], 04/17/2024 20:07:27 04/10/20 24 04/17/2024 TOXAS SURE FLEX 19, UR alpha-hydrox ytriazolam Not Detect ed NG/mg _crea t Not Available [facility] ([facility]) [address] [place], [address], 04/17/2024 20:07:27 04/10/20 24 04/17/2024 TOXAS SURE FLEX 19, UR clonazepam Not Detect ed NG/mg _crea t Not Available [facility] ([facility]) [address] [place], [address], 04/17/2024 20:07:27 04/10/20 24 04/17/2024 TOXAS SURE FLEX 19, UR 7-aminoclona zepam Not Detect ed NG/mg _crea t Not Available [facility] ([facility]) [address] [place], [address], 04/17/2024 20:07:27 04/10/20 24 04/17/2024 TOXAS SURE FLEX 19, UR midazolam Not Detect ed NG/mg _crea t Not Available [facility] ([facility]) [address] [place], [address], 04/17/2024 20:07:27 04/10/20 24 04/17/2024 TOXAS SURE FLEX 19, UR alpha-hydrox ymidazolam Not Detect ed NG/mg _crea t Not Available [facility] ([facility]) [address] [place], [address], 04/17/2024 20:07:27 04/10/20 24 04/17/2024 TOXAS SURE FLEX 19, UR flunitrazepa m Not Detect ed NG/mg _crea t Not Available [facility] ([facility]) [address] [place], [address], 04/17/2024 20:07:27 04/10/20 24 04/17/2024 TOXAS SURE FLEX 19, UR desmethylflu nitrazepam Not Detect ed NG/mg _crea t Not Available [facility] ([facility]) [address] [place], [address], 04/17/2024 20:07:27 04/10/20 24 04/17/2024 TOXAS SURE FLEX 19, UR cocaine metabolite ia Negati ve NG/mL cutoff :150 Not Available [facility] ([facility]) [address] [place], [address], 04/17/2024 20:07:27 04/10/20 24 04/17/2024 TOXAS SURE FLEX 19, UR ethanol biomarkers ia Negati ve NG/mL cutoff :500 Not Available [facility] ([facility]) [address] [place], [address], 04/17/2024 20:07:27 04/10/20 24 04/17/2024 TOXAS SURE FLEX 19, UR cannabinoids ia Negati ve NG/mL cutoff :20 Not Available [facility] ([facility]) [address] [place], [address], 04/17/2024 20:07:27 04/10/20 24 04/17/2024 TOXAS SURE FLEX 19, UR 6-acetylmorp rhys ia Negati ve NG/mL cutoff :10 Not Available [facility] ([facility]) [address] [place], [address], 04/17/2024 20:07:27 04/10/20 24 04/17/2024 TOXAS SURE FLEX 19, UR opiate class ia Negati ve NG/mL cutoff :100 Not Available [facility] ([facility]) [address] [place], [address], 04/17/2024 20:07:27 04/10/20 24 04/17/2024 TOXAS SURE FLEX 19, UR oxycodone class ia Negati ve NG/mL cutoff :100 Not Available [facility] ([facility]) [address] [place], [address], 04/17/2024 20:07:27 04/10/20 24 04/17/2024 TOXAS SURE FLEX 19, UR methadone ia Negati ve NG/mL cutoff :100 Not Available [facility] ([facility]) [address] [place], [address], 04/17/2024 20:07:27 04/10/20 24 04/17/2024 TOXAS SURE FLEX 19, UR methadone mtb ia Negati ve NG/mL cutoff :100 Not Available [facility] ([facility]) [address] [place], [address], 04/17/2024 20:07:27 04/10/20 24 04/17/2024 TOXAS SURE FLEX 19, UR buprenorphin e ia COMMEN T NG/mL cutoff :5.0 Furth er testi ng indic ated Not Available [facility] ([facility]) [address] [place], [address], 04/17/2024 20:07:27 04/10/20 24 04/17/2024 TOXAS SURE FLEX 19, UR fentanyl ia Negati ve NG/mL cutoff :2.0 Not Available [facility] ([facility]) [address] [place], [address], 04/17/2024 20:07:27 04/10/20 24 04/17/2024 TOXAS SURE FLEX 19, UR tapentadol ia Negati ve NG/mL cutoff :200 Not Available [facility] ([facility]) [address] [place], [address], 04/17/2024 20:07:27 04/10/20 24 04/17/2024 TOXAS SURE FLEX 19, UR propoxyphene ia Negati ve NG/mL cutoff :300 Not Available [facility] ([facility]) [address] [place] [address], [address], 04/17/2024 20:07:27 04/10/20 24 04/17/2024 TOXAS SURE FLEX 19, UR tramadol ia Negati ve NG/mL cutoff :200 Not Available [facility] ([facility]) [address] [place] [address], [address], 04/17/2024 20:07:27 04/10/20 24 04/17/2024 TOXAS SURE FLEX 19, UR methylphenid ate ia Commen t NG/mL cutoff :100 Furth er testi ng indic ated Not Available [facility] ([facility]) [address] [place] [address], [address], 04/17/2024 20:07:27 04/10/20 24 04/17/2024 TOXAS SURE FLEX 19, UR barbiturates ia Negati ve NG/mL cutoff :200 Not Available [facility] ([facility]) [address] [place] [address], [address], 04/17/2024 20:07:27 04/10/20 24 04/17/2024 TOXAS SURE FLEX 19, UR phencyclidin e ia Negati ve NG/mL cutoff :25 Not Available [facility] ([facility]) [address] [place] [address], [address], 04/17/2024 20:07:27 04/10/20 24 04/17/2024 TOXAS SURE FLEX 19, UR gabapentin ia COMMEN T ug/mL cutoff :1.0 Furth er testi ng indic ated Not Available [facility] ([facility]) [address] [place] [address], [address], 04/17/2024 20:07:27 04/10/20 24 04/17/2024 TOXAS SURE FLEX 19, UR anticonvulsa nts +POSIT PANCHO+ Not Available [facility] ([facility]) [address] [place], [address], 04/17/2024 20:07:27 04/10/20 24 04/17/2024 TOXAS SURE FLEX 19, UR pregabalin Not Detect ed Not Available [facility] ([facility]) [address] [place], [address], 04/17/2024 20:07:27 04/10/20 24 04/17/2024 TOXAS SURE FLEX 19, UR carisoprodol ia Negati ve NG/mL cutoff :100 Not Available [facility] ([facility]) [address] [facility], [place], [address], 04/17/2024 20:07:27 04/10/20 24 04/17/2024 BUP/N ALOXO NE, MS, UR RFX buprenorphin e +POSIT PANCHO+ Not Available [facility] ([facility]) [address] [place], [address], 04/17/2024 20:07:28 04/10/20 24 04/17/2024 BUP/N ALOXO NE, MS, UR RFX buprenorphin e 261 NG/mg _crea t Not Available [facility] ([facility]) [address] [place], [address], 04/17/2024 20:07:28 04/10/20 24 04/17/2024 BUP/N ALOXO NE, MS, UR RFX norbuprenorp rhys >1449 NG/mg _crea t Not Available [facility] ([facility]) [address] [place], [address], 04/17/2024 20:07:28 04/10/20 24 04/17/2024 BUP/N ALOXO NE, MS, UR RFX N/B ratio >5.56 >=0.3 Not Available [facility] ([facility]) [address] [facility], [place], [address], 04/17/2024 20:07:28 04/10/20 24 04/17/2024 BUP/N ALOXO NE, MS, UR RFX opiate antagonist +POSIT PANCHO+ Not Available [facility] ([facility]) [address] [place], [address], 04/17/2024 20:07:28 04/10/20 24 04/17/2024 BUP/N ALOXO NE, MS, UR RFX naloxone 159 NG/mg _crea t Not Available [facility] ([facility]) [address] [place], [address], 04/17/2024 20:07:28 04/10/20 24 04/17/2024 GABAP ENTIN , MS, UR RFX anticonvulsa nts +POSIT PANCHO+ Not Available [facility] ([facility]) [address] [place], [address], 04/17/2024 20:07:29 04/10/20 24 04/17/2024 GABAP ENTIN , MS, UR RFX gabapentin PRESEN T Not Available [facility] ([facility]) [address] [place], [address], 04/17/2024 20:07:29 04/10/20 24 04/17/2024 METHY LPHEN IDATE , MS, UR RFX sympathomime tics Negati ve Not Available [facility] ([facility]) [address] [place], [address], 04/17/2024 20:07:30 04/10/20 24 04/17/2024 METHY LPHEN IDATE , MS, UR RFX methylphenid ate Not Detect ed Not Available [facility] ([facility]) [address] [place], [address], 04/17/2024 20:07:30 04/10/20 24 04/17/2024 METHY LPHEN IDATE , MS, UR RFX ritalinic acid Not Detect ed Not Available [facility] ([facility]) [address] [facility], [place], [address], 04/17/2024 20:07:30 04/11/20 24 04/12/2024 TSH+F REE T4 TSH 0.945 uIU/m L 0.450- 4.500 normal Not Available [facility] ([facility]) [address] [place], [address], 04/12/2024 08:13:09 04/11/20 24 04/12/2024 TSH+F REE T4 T4,free(dire ct) 1.35 NG/dL 0.82-1 .77 normal Not Available [facility] ([facility]) [address] [place], [address], 04/12/2024 08:13:09 04/11/20 24 04/12/2024 CBC WITH DIFFE RENTI AL/PL ATELE T WBC 4.9 x10e3 /uL 3.4-10 .8 normal Eff ectiv e Decem 2023 leatha walters [id number] 5 WBC will be made* * non-o rdera ble as a stand -sid e order code. Not Available [facility] ([facility]) [address] [place], [address], 04/12/2024 08:13:10 04/11/20 24 04/12/2024 CBC WITH DIFFE RENTI AL/PL ATELE T RBC 4.92 x10e6 /uL 3.77-5 .28 normal Not Available [facility] ([facility]) [address] [place], [address], 04/12/2024 08:13:10 04/11/20 24 04/12/2024 CBC WITH DIFFE RENTI AL/PL ATELE T hemoglobin 13.4 g/dL 11.1-1 5.9 normal Not Available [facility] ([facility]) [address] [facility], [place], [address], 04/12/2024 08:13:10 04/11/2004/12/2024 CBC WITH DIFFE RENTI AL/PL ATELE T hematocrit 41.0 % 34.0-4 6.6 normal Not Available [facility] ([facility]) [address] [facility], [place], [address], 04/12/2024 08:13:10 04/11/2004/12/2024 CBC WITH DIFFE RENTI AL/PL ATELE T MCV 83 fL 79-97 normal Not Available [facility] ([facility]) [address] [facility], [place], [address], 04/12/2024 08:13:10 04/11/20 24 04/12/2024 CBC WITH DIFFE RENTI AL/PL ATELE T MCH 27.2 pg 26.6-3 3.0 normal Not Available [facility] ([facility]) [address] [place], [address], 04/12/2024 08:13:10 04/11/20 24 04/12/2024 CBC WITH DIFFE RENTI AL/PL ATELE T MCHC 32.7 g/dL 31.5-3 5.7 normal Not Available [facility] ([facility]) [address] [place], [address], 04/12/2024 08:13:10 04/11/20 24 04/12/2024 CBC WITH DIFFE RENTI AL/PL ATELE T RDW 13.7 % 11.7-1 5.4 Not Available [facility] ([facility]) [address] [place], [address], 04/12/2024 08:13:10 04/11/20 24 04/12/2024 CBC WITH DIFFE RENTI AL/PL ATELE T platelets 226 x10e3 /uL 150-45 0 normal Not Available [facility] ([facility]) [address] [facility], [place], [address], 04/12/2024 08:13:10 04/11/20 24 04/12/2024 CBC WITH DIFFE RENTI AL/PL ATELE T neutrophils 73 % not estab. normal Not Available [facility] ([facility]) [address] [facility], [place], [address], 04/12/2024 08:13:10 04/11/20 24 04/12/2024 CBC WITH DIFFE RENTI AL/PL ATELE T lymphs 21 % not estab. normal Not Available [facility] ([facility]) [address] [facility], [place], [address], 04/12/2024 08:13:10 04/11/20 24 04/12/2024 CBC WITH DIFFE RENTI AL/PL ATELE T monocytes 5 % not estab. normal Not Available [facility] ([facility]) [address] [facility], [place], [address], 04/12/2024 08:13:10 04/11/20 24 04/12/2024 CBC WITH DIFFE RENTI AL/PL ATELE T eos 0 % not estab. normal Not Available [facility] ([facility]) [address] [facility], [place], [address], 04/12/2024 08:13:10 04/11/20 24 04/12/2024 CBC WITH DIFFE RENTI AL/PL ATELE T basos 1 % not estab. 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 0 normal Not Available [facility] ([facility]) [address] [facility], [place], [address], 04/12/2024 08:13:10 04/11/20 24 04/12/2024 CBC WITH DIFFE RENTI AL/PL ATELE T lymphs (absolute) 1.0 x10e3 /uL 0.7-3. 1 normal Not Available [facility] ([facility]) [address] [place], [address], 04/12/2024 08:13:10 04/11/20 24 04/12/2024 CBC WITH DIFFE RENTI AL/PL ATELE T monocytes(ab solute) 0.3 x10e3 /uL 0.1-0. 9 normal Not Available [facility] ([facility]) [address] [facility], [place], [address], 04/12/2024 08:13:10 04/11/20 24 04/12/2024 CBC WITH DIFFE RENTI AL/PL ATELE T eos (absolute) 0.0 x10e3 /uL 0.0-0. 4 normal Not Available [facility] ([facility]) [address] [place], [address], 04/12/2024 08:13:10 04/11/20 24 04/12/2024 CBC WITH DIFFE RENTI AL/PL ATELE T baso (absolute) 0.0 x10e3 /uL 0.0-0. 2 normal Not Available [facility] ([facility]) [address] [place], [address], 04/12/2024 08:13:10 04/11/20 24 04/12/2024 CBC WITH DIFFE RENTI AL/PL ATELE T immature granulocytes 0 % not estab. Not Available [facility] ([facility]) [address] [facility], [place], [address], 04/12/2024 08:13:10 04/11/20 24 04/12/2024 CBC WITH DIFFE RENTI AL/PL ATELE T immature grans (abs) 0.0 x10e3 /uL 0.0-0. 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 METAB OLIC PANEL (14) glucose 125 mg/dL 70-99 above high normal Not Available [facility] ([facility]) [address] [facility], [place], [address], 04/12/2024 08:13:10 04/11/20 24 04/12/2024 COMP. METAB OLIC PANEL (14) BUN 21 mg/dL 8-27 normal Not Available [facility] ([facility]) [address] [facility], [place], [address], 04/12/2024 08:13:10 04/11/20 24 04/12/2024 COMP. METAB OLIC PANEL (14) creatinine 0.68 mg/dL 0.57-1 .00 normal Not Available [facility] ([facility]) [address] [facility], [place], [address], 04/12/2024 08:13:10 04/11/20 24 04/12/2024 COMP. METAB OLIC PANEL (14) eGFR 94 mL/mi n/1.7 3 >59 normal Not Available [facility] ([facility]) [address] [facility] [place], [address], 04/12/2024 08:13:10 04/11/20 24 04/12/2024 COMP. METAB OLIC PANEL (14) BUN/creatini ne ratio 31 12-28 above high normal Not Available [facility] ([facility]) [address] [facility], [place], [address], 04/12/2024 08:13:10 04/11/20 24 04/12/2024 COMP. METAB OLIC PANEL (14) sodium 125 mmol/ L 134-14 4 below low normal Not Available [facility] ([facility]) [address] [facility] [place], [address], 04/12/2024 08:13:10 04/11/20 24 04/12/2024 COMP. METAB OLIC PANEL (14) potassium 5.8 mmol/ L 3.5-5. 2 above high normal Not Available [facility] ([facility]) [address] [facility] [place], [address], 04/12/2024 08:13:10 04/11/20 24 04/12/2024 COMP. METAB OLIC PANEL (14) chloride 91 mmol/ L 96-106 below low normal Not Available [facility] ([facility]) [address] [facility] [place], [address], 04/12/2024 08:13:10 04/11/20 24 04/12/2024 COMP. METAB OLIC PANEL (14) carbon dioxide, total 19 mmol/ L 20-29 below low normal Not Available [facility] ([facility]) [address] [place], [address], 04/12/2024 08:13:10 04/11/20 24 04/12/2024 COMP. METAB OLIC PANEL (14) calcium 9.0 mg/dL 8.7-10 .3 normal Not Available [facility] ([facility]) [address] [facility], [place], [address], 04/12/2024 08:13:10 04/11/20 24 04/12/2024 COMP. METAB OLIC PANEL (14) protein, total 7.7 g/dL 6.0-8. 5 normal Not Available [facility] ([facility]) [address] [facility], [place], [address], 04/12/2024 08:13:10 04/11/20 24 04/12/2024 COMP. METAB OLIC PANEL (14) albumin 4.0 g/dL 3.9-4. 9 normal Not Available [facility] ([facility]) [address] [facility], [place], [address], 04/12/2024 08:13:10 04/11/20 24 04/12/2024 COMP. METAB OLIC PANEL (14) globulin, total 3.7 g/dL 1.5-4. 5 Not Available [facility] ([facility]) [address] [facility], [place], [address], 04/12/2024 08:13:10 04/11/20 24 04/12/2024 COMP. METAB OLIC PANEL (14) bilirubin, total 0.3 mg/dL 0.0-1. 2 normal Not Available [facility] ([facility]) [address] [facility], [place], [address], 04/12/2024 08:13:10 04/11/20 24 04/12/2024 COMP. METAB OLIC PANEL (14) alkaline phosphatase 106 IU/L 44-121 normal Not Available [facility] ([facility]) [address] [facility], [place], [address], 04/12/2024 08:13:10 04/11/20 24 04/12/2024 COMP. METAB OLIC PANEL (14) AST (SGOT) 18 IU/L 0-40 normal Not Available [facility] ([facility]) [address] [facility] [place], [address], 04/12/2024 08:13:10 04/11/20 24 04/12/2024 COMP. METAB OLIC PANEL (14) ALT (SGPT) 8 IU/L 0-32 normal Not Available [facility] ([facility]) [address] [facility] [place], [address], 04/12/2024 08:13:10 04/11/20 24 04/12/2024 LIPID PANEL cholesterol, total 116 mg/dL 100-19 9 normal Not Available [facility] ([facility]) [address] [facility] [place], [address], 04/12/2024 08:13:11 04/11/20 24 04/12/2024 LIPID PANEL triglyceride s 152 mg/dL 0-149 above high normal Not Available [facility] ([facility]) [address] [facility] [place], [address], 04/12/2024 08:13:11 04/11/20 24 04/12/2024 LIPID PANEL HDL cholesterol 34 mg/dL >39 below low normal Not Available [facility] ([facility]) [address] [facility] [place], [address], 04/12/2024 08:13:11 04/11/20 24 04/12/2024 LIPID PANEL VLDL cholesterol devin 26 mg/dL 5-40 Not Available [facility] ([facility]) [address] [facility] [place], [address], 04/12/2024 08:13:11 04/11/20 24 04/12/2024 LIPID PANEL LDL chol calc ([facility]) 56 mg/dL 0-99 Not Available [facility] ([facility]) [address] [facility] [place], [address], 04/12/2024 08:13:11 11/27/20 24 04/12/2024 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 Not Available [facility] ([facility]) [address] [facility], [place], [address], 04/12/2024 08:13:12 04/11/20 24 04/12/2024 HEMOG LOBIN A1C hemoglobin A1C 6.0 % 4.8-5. 6 above high normal Predi abete s: 5.7 - 6.4 Diabe jovanni: >6.4 Glyce lexii contr ol for adult s with diabe jovanni: <7.0 Not Available [facility] ([facility]) [address] [facility], [place], [address], 04/12/2024 08:13:12 04/11/20 24 04/12/2024 VITAM IN D, 25-HY DROXY vitamin D, 25-hydroxy 34.7 NG/mL 30.0-1 00.0 Vitam in D defic iency has been defin ed by the Insti tute of Medic ine and an Endoc rine Socie ty pract ice guide line as a level of serum 25-OH vitam in D less than 20 ng/mL (1,2) . The Endoc rine Socie ty went on to furth er defin e vitam in D insuf ficie ncy as a level betwe en 21 and 29 ng/mL (2). 1. IOM (Inst itute of Medic ine). 2010. Dieta ry refer ence vivian es for calci um and D. An muñoz [place]: [facility] . 2. Holramirez k MF, Binkl ey [place], Bisch off-F errar i KEATING, et al. Evalu ation , treat ment, and preve ntion of vitam in D defic iency : an Endoc rine Socie ty clini devin pract ice guide line. JCEM. 2010; 96(7) :1911 -30. Not Available [facility] ([facility]) [address] [place], [address], 04/12/2024 08:13:13 07/12/1907/13/2024 TSH+F REE T4 TSH 1.640 uIU/m L 0.450- 4.500 normal Not Available [facility] ([facility]) [address] [place], [address], 07/13/2024 08:12:44 07/12/1907/13/2024 TSH+F REE T4 T4,free(dire ct) 1.40 NG/dL 0.82-1 .77 normal Not Available [facility] ([facility]) [address] [place], [address], 07/13/2024 08:12:44 07/12/1907/13/2024 CBC WITH DIFFE RENTI AL/PL ATELE T WBC 5.8 x10e3 /uL 3.4-10 .8 normal Not Available [facility] ([facility]) [address] [place], [address], 07/13/2024 08:12:44 07/12/19 25 07/13/2024 CBC WITH DIFFE RENTI AL/PL ATELE T RBC 5.18 x10e6 /uL 3.77-5 .28 normal Not Available [facility] ([facility]) [address] [facility], [place], [address], 07/13/2024 08:12:44 07/12/1907/13/2024 CBC WITH DIFFE RENTI AL/PL ATELE T hemoglobin 14.0 g/dL 11.1-1 5.9 normal Not Available [facility] ([facility]) [address] [facility], [place], [address], 07/13/2024 08:12:44 07/12/1907/13/2024 CBC WITH DIFFE RENTI AL/PL ATELE T hematocrit 43.8 % 34.0-4 6.6 normal Not Available [facility] ([facility]) [address] [facility], [place], [address], 07/13/2024 08:12:44 07/12/19 25 07/13/2024 CBC WITH DIFFE RENTI AL/PL ATELE T MCV 85 fL 79-97 normal Not Available [facility] ([facility]) [address] [place], [address], 07/13/2024 08:12:44 07/12/1907/13/2024 CBC WITH DIFFE RENTI AL/PL ATELE T MCH 27.0 pg 26.6-3 3.0 normal Not Available [facility] ([facility]) [address] [place], [address], 07/13/2024 08:12:44 07/12/1907/13/2024 CBC WITH DIFFE RENTI AL/PL ATELE T MCHC 32.0 g/dL 31.5-3 5.7 normal Not Available [facility] ([facility]) [address] [place], [address], 07/13/2024 08:12:44 07/12/19 25 07/13/2024 CBC WITH DIFFE RENTI AL/PL ATELE T RDW 13.6 % 11.7-1 5.4 Not Available [facility] ([facility]) [address] [facility], [place], [address], 07/13/2024 08:12:44 07/12/19 25 07/13/2024 CBC WITH DIFFE RENTI AL/PL ATELE T platelets 264 x10e3 /uL 150-45 0 normal Not Available [facility] ([facility]) [address] [facility], [place], [address], 07/13/2024 08:12:44 07/12/19 25 07/13/2024 CBC WITH DIFFE RENTI AL/PL ATELE T neutrophils 63 % not estab. normal Not Available [facility] ([facility]) [address] [facility], [place], [address], 07/13/2024 08:12:44 07/12/19 25 07/13/2024 CBC WITH DIFFE RENTI AL/PL ATELE T lymphs 26 % not estab. normal Not Available [facility] ([facility]) [address] [facility], [place], [address], 07/13/2024 08:12:44 07/12/19 25 07/13/2024 CBC WITH DIFFE RENTI AL/PL ATELE T monocytes 9 % not estab. normal Not Available [facility] ([facility]) [address] [facility], [place], [address], 07/13/2024 08:12:44 07/12/19 25 07/13/2024 CBC WITH DIFFE RENTI AL/PL ATELE T eos 1 % not estab. normal Not Available [facility] ([facility]) [address] [facility], [place], [address], 07/13/2024 08:12:44 07/12/19 25 07/13/2024 CBC WITH DIFFE RENTI AL/PL ATELE T basos 1 % not estab. 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 0 normal Not Available [facility] ([facility]) [address] [place], [address], 07/13/2024 08:12:44 07/12/19 25 07/13/2024 CBC WITH DIFFE RENTI AL/PL ATELE T lymphs (absolute) 1.5 x10e3 /uL 0.7-3. 1 normal Not Available [facility] ([facility]) [address] [place], [address], 07/13/2024 08:12:44 07/12/19 25 07/13/2024 CBC WITH DIFFE RENTI AL/PL ATELE T monocytes(ab solute) 0.5 x10e3 /uL 0.1-0. 9 normal Not Available [facility] ([facility]) [address] [place], [address], 07/13/2024 08:12:44 07/12/19 25 07/13/2024 CBC WITH DIFFE RENTI AL/PL ATELE T eos (absolute) 0.1 x10e3 /uL 0.0-0. 4 normal Not Available [facility] ([facility]) [address] [place], [address], 07/13/2024 08:12:44 07/12/19 25 07/13/2024 CBC WITH DIFFE RENTI AL/PL ATELE T baso (absolute) 0.0 x10e3 /uL 0.0-0. 2 normal Not Available [facility] ([facility]) [address] [facility], [place], [address], 07/13/2024 08:12:44 07/12/19 25 07/13/2024 CBC WITH DIFFE RENTI AL/PL ATELE T immature granulocytes 0 % not estab. Not Available [facility] ([facility]) [address] [facility], [place], [address], 07/13/2024 08:12:44 07/12/19 25 07/13/2024 CBC WITH DIFFE RENTI AL/PL ATELE T immature grans (abs) 0.0 x10e3 /uL 0.0-0. 1 Not Available [facility] ([facility]) [address] [facility], [place], [address], 07/13/2024 08:12:44 07/12/19 25 07/13/2024 CBC WITH DIFFE RENTI AL/PL ATELE T NRBC HEAD TURNING MACHINE OPERATOR Not Available [facility] ([facility]) [address] [facility], [place], [address], 07/13/2024 08:12:44 07/12/19 25 07/13/2024 CBC WITH DIFFE RENTI AL/PL ATELE T hematology comments: HEAD TURNING MACHINE OPERATOR Not Available [facility] ([facility]) [address] [facility], [place], [address], 07/13/2024 08:12:44 07/12/19 25 07/13/2024 COMP. METAB OLIC PANEL (14) glucose 109 mg/dL 70-99 above high normal Not Available [facility] ([facility]) [address] [facility], [place], [address], 07/13/2024 08:12:45 07/12/19 25 07/13/2024 COMP. METAB OLIC PANEL (14) BUN 16 mg/dL 8-27 normal Not Available [facility] ([facility]) [address] [facility], [place], [address], 07/13/2024 08:12:45 07/12/19 25 07/13/2024 COMP. METAB OLIC PANEL (14) creatinine 0.85 mg/dL 0.57-1 .00 normal Not Available [facility] ([facility]) [address] [facility] [place], [address], 07/13/2024 08:12:45 07/12/19 25 07/13/2024 COMP. METAB OLIC PANEL (14) eGFR 74 mL/mi n/1.7 3 >59 normal Not Available [facility] ([facility]) [address] [facility] [place], [address], 07/13/2024 08:12:45 07/12/19 25 07/13/2024 COMP. METAB OLIC PANEL (14) BUN/creatini ne ratio 19 12-28 normal Not Available [facility] ([facility]) [address] [facility] [place], [address], 07/13/2024 08:12:45 07/12/19 25 07/13/2024 COMP. METAB OLIC PANEL (14) sodium 133 mmol/ L 134-14 4 below low normal Not Available [facility] ([facility]) [address] [facility] [place], [address], 07/13/2024 08:12:45 07/12/19 25 07/13/2024 COMP. METAB OLIC PANEL (14) potassium 5.1 mmol/ L 3.5-5. 2 normal Not Available [facility] ([facility]) [address] [facility] [place], [address], 07/13/2024 08:12:45 07/12/19 25 07/13/2024 COMP. METAB OLIC PANEL (14) chloride 98 mmol/ L 96-106 normal Not Available [facility] ([facility]) [address] [facility] [place], [address], 07/13/2024 08:12:45 07/12/19 25 07/13/2024 COMP. METAB OLIC PANEL (14) carbon dioxide, total 20 mmol/ L 20-29 normal Not Available [facility] ([facility]) [address] [facility] [place], [address], 07/13/2024 08:12:45 07/12/19 25 07/13/2024 COMP. METAB OLIC PANEL (14) calcium 8.9 mg/dL 8.7-10 .3 normal Not Available [facility] ([facility]) [address] [facility] [place], [address], 07/13/2024 08:12:45 07/12/19 25 07/13/2024 COMP. METAB OLIC PANEL (14) protein, total 7.7 g/dL 6.0-8. 5 normal Not Available [facility] ([facility]) [address] [facility] [place], [address], 07/13/2024 08:12:45 07/12/19 25 07/13/2024 COMP. METAB OLIC PANEL (14) albumin 3.9 g/dL 3.9-4. 9 normal Not Available [facility] ([facility]) [address] [facility] [place], [address], 07/13/2024 08:12:45 07/12/19 25 07/13/2024 COMP. METAB OLIC PANEL (14) globulin, total 3.8 g/dL 1.5-4. 5 Not Available [facility] ([facility]) [address] [place], [address], 07/13/2024 08:12:45 07/12/19 25 07/13/2024 COMP. METAB OLIC PANEL (14) bilirubin, total 0.2 mg/dL 0.0-1. 2 normal Not Available [facility] ([facility]) [address] [facility] [place], [address], 07/13/2024 08:12:45 07/12/19 25 07/13/2024 COMP. METAB OLIC PANEL (14) alkaline phosphatase 110 IU/L 44-121 normal Not Available [facility] ([facility]) [address] [facility] [place], [address], 07/13/2024 08:12:45 07/12/19 25 07/13/2024 COMP. METAB OLIC PANEL (14) AST (SGOT) 20 IU/L 0-40 normal Not Available [facility] ([facility]) [address] [place], [address], 07/13/2024 08:12:45 07/12/19 25 07/13/2024 COMP. METAB OLIC PANEL (14) ALT (SGPT) 8 IU/L 0-32 normal Not Available [facility] ([facility]) [address] [place], [address], 07/13/2024 08:12:45 07/12/19 25 07/13/2024 LIPID PANEL cholesterol, total 105 mg/dL 100-19 9 normal Not Available [facility] ([facility]) [address] [place], [address], 07/13/2024 08:12:45 07/12/19 25 07/13/2024 LIPID PANEL triglyceride s 131 mg/dL 0-149 normal Not Available [facility] ([facility]) [address] [place], [address], 07/13/2024 08:12:45 07/12/19 25 07/13/2024 LIPID PANEL HDL cholesterol 29 mg/dL >39 below low normal Not Available [facility] ([facility]) [address] [place], [address], 07/13/2024 08:12:45 07/12/19 25 07/13/2024 LIPID PANEL VLDL cholesterol devin 23 mg/dL 5-40 Not Available [facility] ([facility]) [address] [place], [address], 07/13/2024 08:12:45 07/12/19 25 07/13/2024 LIPID PANEL LDL chol calc ([facility]) 53 mg/dL 0-99 Not Available [facility] ([facility]) [address] [place], [address], 07/13/2024 08:12:45 07/12/19 25 07/13/2024 LIPID PANEL LDL calc comment: HEAD TURNING MACHINE OPERATOR Not Available [facility] ([facility]) [address] [place], [address], 07/13/2024 08:12:45 07/12/19 25 07/13/2024 VITAM IN B12 AND FOLAT E vitamin B12 538 pg/mL 232-12 45 normal Not Available [facility] ([facility]) [address] [facility], [place], [address], 07/13/2024 08:12:46 07/12/19 25 07/13/2024 VITAM IN B12 AND FOLAT E folate (folic acid), serum 2.3 NG/mL >3.0 below low normal A serum folat e aida ntrat ion of less than 3.1 ng/mL is consi dered to repre sent clini devin defic iency . Not Available [facility] ([facility]) [address] [facility], [place], [address], 07/13/2024 08:12:46 07/12/1907/13/2024 HEMOG LOBIN A1C hemoglobin A1C 6.0 % 4.8-5. 6 above high normal Predi abete s: 5.7 - 6.4 Diabe jovanni: >6.4 Glyce lexii contr ol for adult s with diabe jovanni: <7.0 Not Available [facility] ([facility]) [address] [place], [address], 07/13/2024 08:12:46 07/12/19 25 07/13/2024 VITAM IN D, 25-HY DROXY vitamin D, 25-hydroxy 39.6 NG/mL 30.0-1 00.0 Vitam in D defic iency has been defin ed by the Insti tute of Medic ine and an Endoc rine Socie ty pract ice guide line as a level of serum 25-OH vitam in D less than 20 ng/mL (1,2) . The Endoc rine Socie ty went on to fur er defin e vitam in D insuf ficie ncy as a level betwe en 21 and 29 ng/mL (2). 1. IOM (Inst itute of Medic ine). 2010. Dieta ry refer ence intak es for calci um and D. An muñoz DC: The [facility] . 2. Tyra patel MF, Shawanda fernandez [place], Christianne off-F shalini i KEATING, et al. Evalu ation , treat ment, and preve ntion of vitam in D defic iency : an Endoc rine Socie ty clini devin pract ice guide line. JCEM. 2010; 96(7) :1911 -30. Not Available [facility] ([facility]) [address] [place], [address], 07/13/2024 08:12:46 08/21/19 25 08/21/2024 CBC WITH DIFFE RENTI AL/PL ATELE T WBC 8.4 x10e3 /uL 3.4-10 .8 normal Not Available [facility] ([facility]) [address] [place], [address], 08/21/2024 08:25:57 08/21/19 25 08/21/2024 CBC WITH DIFFE RENTI AL/PL ATELE T RBC 5.35 x10e6 /uL 3.77-5 .28 above high normal Not Available [facility] ([facility]) [address] [place], [address], 08/21/2024 08:25:57 08/21/19 25 08/21/2024 CBC WITH DIFFE RENTI AL/PL ATELE T hemoglobin 14.2 g/dL 11.1-1 5.9 normal Not Available [facility] ([facility]) [address] [facility] [place], [address], 08/21/2024 08:25:57 08/21/1908/21/2024 CBC WITH DIFFE RENTI AL/PL ATELE T hematocrit 45.2 % 34.0-4 6.6 normal Not Available [facility] ([facility]) [address] [facility], [place], [address], 08/21/2024 08:25:57 08/21/1908/21/2024 CBC WITH DIFFE RENTI AL/PL ATELE T MCV 85 fL 79-97 normal Not Available [facility] ([facility]) [address] [facility], [place], [address], 08/21/2024 08:25:57 08/21/19 25 08/21/2024 CBC WITH DIFFE RENTI AL/PL ATELE T MCH 26.5 pg 26.6-3 3.0 below low normal Not Available [facility] ([facility]) [address] [facility], [place], [address], 08/21/2024 08:25:57 08/21/1908/21/2024 CBC WITH DIFFE RENTI AL/PL ATELE T MCHC 31.4 g/dL 31.5-3 5.7 below low normal Not Available [facility] ([facility]) [address] [place], [address], 08/21/2024 08:25:57 08/21/1908/21/2024 CBC WITH DIFFE RENTI AL/PL ATELE T RDW 13.8 % 11.7-1 5.4 Not Available [facility] ([facility]) [address] [place], [address], 08/21/2024 08:25:57 08/21/19 25 08/21/2024 CBC WITH DIFFE RENTI AL/PL ATELE T platelets 274 x10e3 /uL 150-45 0 normal Not Available [facility] ([facility]) [address] [facility], [place], [address], 08/21/2024 08:25:57 08/21/19 25 08/21/2024 CBC WITH DIFFE RENTI AL/PL ATELE T neutrophils 62 % not estab. normal Not Available [facility] ([facility]) [address] [facility], [place], [address], 08/21/2024 08:25:57 08/21/19 25 08/21/2024 CBC WITH DIFFE RENTI AL/PL ATELE T lymphs 27 % not estab. normal Not Available [facility] ([facility]) [address] [facility], [place], [address], 08/21/2024 08:25:57 08/21/19 25 08/21/2024 CBC WITH DIFFE RENTI AL/PL ATELE T monocytes 8 % not estab. normal Not Available [facility] ([facility]) [address] [facility], [place], [address], 08/21/2024 08:25:57 08/21/19 25 08/21/2024 CBC WITH DIFFE RENTI AL/PL ATELE T eos 2 % not estab. normal Not Available [facility] ([facility]) [address] [facility], [place], [address], 08/21/2024 08:25:57 08/21/19 25 08/21/2024 CBC WITH DIFFE RENTI AL/PL ATELE T basos 1 % not estab. normal Not Available [facility] ([facility]) [address] [facility], [place], [address], 08/21/2024 08:25:57 08/21/19 25 08/21/2024 CBC WITH DIFFE RENTI AL/PL ATELE T immature cells HEAD TURNING MACHINE OPERATOR Not Available [facility] ([facility]) [address] [facility], [place], [address], 08/21/2024 08:25:57 08/21/19 25 08/21/2024 CBC WITH DIFFE RENTI AL/PL ATELE T neutrophils (absolute) 5.2 x10e3 /uL 1.4-7. 0 normal Not Available [facility] ([facility]) [address] [place], [address], 08/21/2024 08:25:57 08/21/19 25 08/21/2024 CBC WITH DIFFE RENTI AL/PL ATELE T lymphs (absolute) 2.2 x10e3 /uL 0.7-3. 1 normal Not Available [facility] ([facility]) [address] [place], [address], 08/21/2024 08:25:57 08/21/19 25 08/21/2024 CBC WITH DIFFE RENTI AL/PL ATELE T monocytes(ab solute) 0.6 x10e3 /uL 0.1-0. 9 normal Not Available [facility] ([facility]) [address] [place], [address], 08/21/2024 08:25:57 08/21/19 25 08/21/2024 CBC WITH DIFFE RENTI AL/PL ATELE T eos (absolute) 0.2 x10e3 /uL 0.0-0. 4 normal Not Available [facility] ([facility]) [address] [place], [address], 08/21/2024 08:25:57 08/21/19 25 08/21/2024 CBC WITH DIFFE RENTI AL/PL ATELE T baso (absolute) 0.1 x10e3 /uL 0.0-0. 2 normal Not Available [facility] ([facility]) [address] [place], [address], 08/21/2024 08:25:57 08/21/19 25 08/21/2024 CBC WITH DIFFE RENTI AL/PL ATELE T immature granulocytes 0 % not estab. Not Available [facility] ([facility]) [address] [place], [address], 08/21/2024 08:25:57 08/21/19 25 08/21/2024 CBC WITH DIFFE RENTI AL/PL ATELE T immature grans (abs) 0.0 x10e3 /uL 0.0-0. 1 Not Available [facility] ([facility]) [address] [facility], [place], [address], 08/21/2024 08:25:57 08/21/19 25 08/21/2024 CBC WITH DIFFE RENTI AL/PL ATELE T NRBC HEAD TURNING MACHINE OPERATOR Not Available [facility] ([facility]) [address] [facility], [place], [address], 08/21/2024 08:25:57 08/21/19 25 08/21/2024 CBC WITH DIFFE RENTI AL/PL ATELE T hematology comments: HEAD TURNING MACHINE OPERATOR Not Available [facility] ([facility]) [address] [facility], [place], [address], 08/21/2024 08:25:57 08/21/19 25 08/21/2024 COMP. METAB OLIC PANEL (14) glucose 118 mg/dL 70-99 above high normal Not Available [facility] ([facility]) [address] [facility], [place], [address], 08/21/2024 08:25:58 08/21/19 25 08/21/2024 COMP. METAB OLIC PANEL (14) BUN 15 mg/dL 8-27 normal Not Available [facility] ([facility]) [address] [facility], [place], [address], 08/21/2024 08:25:58 08/21/19 25 08/21/2024 COMP. METAB OLIC PANEL (14) creatinine 0.78 mg/dL 0.57-1 .00 normal Not Available [facility] ([facility]) [address] [facility], [place], [address], 08/21/2024 08:25:58 08/21/19 25 08/21/2024 COMP. METAB OLIC PANEL (14) eGFR 82 mL/mi n/1.7 3 >59 normal Not Available [facility] ([facility]) [address] [place], [address], 08/21/2024 08:25:58 08/21/19 25 08/21/2024 COMP. METAB OLIC PANEL (14) BUN/creatini ne ratio 19 12-28 normal Not Available [facility] ([facility]) [address] [place], [address], 08/21/2024 08:25:58 08/21/19 25 08/21/2024 COMP. METAB OLIC PANEL (14) sodium 135 mmol/ L 134-14 4 normal Not Available [facility] ([facility]) [address] [facility], [place], [address], 08/21/2024 08:25:58 08/21/19 25 08/21/2024 COMP. METAB OLIC PANEL (14) potassium 4.6 mmol/ L 3.5-5. 2 normal Not Available [facility] ([facility]) [address] [place], [address], 08/21/2024 08:25:58 08/21/19 25 08/21/2024 COMP. METAB OLIC PANEL (14) chloride 97 mmol/ L 96-106 normal Not Available [facility] ([facility]) [address] [place], [address], 08/21/2024 08:25:58 08/21/19 25 08/21/2024 COMP. METAB OLIC PANEL (14) carbon dioxide, total 21 mmol/ L 20-29 normal Not Available [facility] ([facility]) [address] [place], [address], 08/21/2024 08:25:58 08/21/19 25 08/21/2024 COMP. METAB OLIC PANEL (14) calcium 10.0 mg/dL 8.7-10 .3 normal Not Available [facility] ([facility]) [address] [facility] [place], [address], 08/21/2024 08:25:58 08/21/19 25 08/21/2024 COMP. METAB OLIC PANEL (14) protein, total 7.5 g/dL 6.0-8. 5 normal Not Available [facility] ([facility]) [address] [facility] [place], [address], 08/21/2024 08:25:58 08/21/19 25 08/21/2024 COMP. METAB OLIC PANEL (14) albumin 3.9 g/dL 3.9-4. 9 normal Not Available [facility] ([facility]) [address] [facility] [place], [address], 08/21/2024 08:25:58 08/21/19 25 08/21/2024 COMP. METAB OLIC PANEL (14) globulin, total 3.6 g/dL 1.5-4. 5 Not Available [facility] ([facility]) [address] [facility] [place], [address], 08/21/2024 08:25:58 08/21/19 25 08/21/2024 COMP. METAB OLIC PANEL (14) bilirubin, total <0.2 mg/dL 0.0-1. 2 Not Available [facility] ([facility]) [address] [facility] [place], [address], 08/21/2024 08:25:58 08/21/19 25 08/21/2024 COMP. METAB OLIC PANEL (14) alkaline phosphatase 101 IU/L 44-121 normal Not Available [facility] ([facility]) [address] [facility] [place], [address], 08/21/2024 08:25:58 08/21/19 25 08/21/2024 COMP. METAB OLIC PANEL (14) AST (SGOT) 18 IU/L 0-40 normal Not Available [facility] ([facility]) [address] [facility], [place], [address], 08/21/2024 08:25:58 08/21/19 25 08/21/2024 COMP. METAB OLIC PANEL (14) ALT (SGPT) 7 IU/L 0-32 normal Not Available [facility] ([facility]) [address] [facility], [place], [address], 08/21/2024 08:25:58 08/21/19 25 08/21/2024 VITAM IN B12 AND FOLAT E vitamin B12 483 pg/mL 232-12 45 normal Not Available [facility] ([facility]) [address] [facility], [place], [address], 08/21/2024 08:25:59 08/21/19 25 08/21/2024 VITAM IN B12 AND FOLAT E folate (folic acid), serum >20.0 NG/mL >3.0 A serum folat e aida ntrat ion of less than 3.1 ng/mL is consi dered to repre sent clini devin defic iency . Not Available [facility] ([facility]) [address] [facility], [place], [address], 08/21/2024 08:25:59 04/16/20 24 01/04/2024 MAMMO , scree bill, digit al, bilat eral No observ ation record ed. [email or web address] [facility] [address], [place], [address], 07/17/2024 12:38:43 Result Notes None recorded. Procedures Surgical History Date Name Laterality Status Provider Name and Address Organization Details Recorded Time Most Recent Mammogram completed Layla SALAS - [employer]. 04/10/2024 14:41:12 Imaging Results None recorded. Procedure Notes None recorded. Medical Equipment None Reported. Allergies Allergen ID Allergen Name Allergen Category Reaction Reaction Severity Criticality Documentation Date Start Date Code Code System Note Provider Name and Address Organization Details Recorded Time 69353 Substance with sulfonami de structure and antibacte rial mechanism of action (substanc e) medicatio n itching rash Not available Not available Not available 04/10/2024 44358 8003 SNOMED Layla piper [facility] [employer], [facility]. 4 14:16:46 Medications Name Sig Start Date Stop Date Status Note LastModified by Organization Details LastModified Time losartan 50 mg tablet TAKE 1 AND 1/2 TABLET 1 TIME EACH DAY active Not Available Not Available No t Available alendronate 10 mg tablet 04/10 completed Not Available Not Available Not Available gabapentin 600 mg tablet 04/10 completed Not Available Not Available Not Available clonazepam 0.5 mg tablet 04/10 completed Not Available Not Available Not Available clopidogrel 75 mg tablet TAKE 1 TABLET 1 TIME EACH DAY active Not Available Not Available No t Available hydrocodone 10 mg-acetamin ophen 325 mg tablet 04/10 completed Not Available Not Available Not Available levothyroxi ne 25 mcg tablet TAKE 1 TABLET 1 TIME EACH DAY active Not Available Not Available No t Available gabapentin 800 mg tablet TAKE 1 TABLET 3 TIMES EACH DAY active Not Available Not Available No t Available folic acid 1 mg tablet Take 1 tablet every day by oral route. 2024 active Not Available Not Available Not Avai lable hydrochloro thiazide 25 mg tablet 04/10 completed Not Available Not Available Not Available metoprolol succinate ER 25 mg tablet,exte nded release 24 hr TAKE 1 TABLET 1 TIME EACH DAY active Not Available Not Available No t Available methylpredn isolone 4 mg tablets in a dose pack as directed 07/12 completed Not Available Not Available Not Available albuterol sulfate HFA 90 mcg/actuati on aerosol inhaler Inhale 2 puffs every 4 hours by inhalatio n route as needed. active Not Available Not Available No t Available fluoxetine 20 mg capsule 04/10 completed Not Available Not Available Not Available buprenorphi ne 8 mg-naloxone 2 mg sublingual tablet 04/10 completed Not Available Not Available Not Available clonazepam 0.25 mg disintegrat ing tablet 04/10 completed Not Available Not Available Not Available rosuvastati n 20 mg tablet TAKE 1 TABLET 1 TIME EACH DAY active Not Available Not Available No t Available buprenorphi ne 8 mg-naloxone [address] 2 FILMS UNDER THE TONGUE AND ALLOW TO DISSOLVE 1 TIME EACH DAY active Not Available Not Available No t Available naloxone 4 mg/actuatio n nasal spray active Not Available Not Available Not Available Damon Ellipta 100 mcg-62.5 mcg-25 mcg powder for inhalation INHALE 1 PUFF 1 TIME EACH DAY active Not Available Not Available No t Available Vitals Date Recorded Body height Body mass index (BMI) Body weight Heart rate Oxygen saturation Oxygen saturation in Arterial blood by Pulse oximetry Systolic blood pressure Diastolic blood pressure Provider Name and Address Organization Details Last Updated DateTime 5 165.1 cm 19.3 kg/m2 40948.7 1 g 112 /min 90 % 90 % 196 mm[Hg] 120 mm[Hg] Layla Park [facility], [employer] 5 13:12:27 Date Recorded Body height Body mass index (BMI) Body weight Heart rate Oxygen saturation Oxygen saturation in Arterial blood by Pulse oximetry Systolic blood pressure Diastolic blood pressure Systolic blood pressure Diastolic blood pressure Provider Name and Address Organization Details Last Updated DateTime 4 165.1 cm 19.8 kg/m2 44338.1 9 g 114 /min 94 % 94 % 171 mm[Hg] 139 mm[Hg] 150 mm[Hg] 70 mm[Hg] Layla Park [facility], [employer] 15:52:19 Social History Question Answer Notes LastModified by Organizat ion Details LastModified Time Tobacco Smoking Status Current Every Day Smoker Layla piper [facility], [employer] 04/10/2024 14:16:48 Do You Have An Advance Directive? No Information not available 04/10/2024 Is Your Home Air Conditioned? Yes Information not available 04/10/2024 If You Are , What Was Your Level Of Alcohol Consumption Prior To ? None Information not available 04/10/2024 Do You Wear A Helmet When Biking? Yes Information not available 04/10/2024 Are You Blind Or Do You Have Difficulty Seeing? No Information not available 04/10/2024 What Is Your Level Of Caffeine Consumption? Moderate Information not available 04/10/2024 What Type Of Crime Scene Investigator Do You Use? None Information not available 04/10/2024 Are You Deaf Or Do You Have Serious Difficulty Hearing? No Information not available 04/10/2024 What Type Of Diet Are You Following? REGULAR Information not available 04/10/2024 Have There Been Any Changes To Your Family Or Social Situation? No Information no t available 04/10/2024 Are There Any Guns Present In Your Home? No Information not available 04/10/2024 Which Of Your Hands Is Dominant? Right Information not available 04/10/2024 What Is Your Home Situation? Other Information not available 04/10/2024 Do You Have A Medical Power Of Ladle Liner Helper? No Information not available 04/10/2024 What Was The Date Of Your Most Recent Tobacco Screening? 07/12/2024 Information not available 07/12/2024 What Is Your Current Pack Years? 30ormorepacky ears Information not available 04/10/2024 Do You Have Any Pets? Yes Information not available 04/10/2024 What Is Your Relationship Status? Information not available 04/10/2024 Have You Repeated Any Grades? No Information not available 04/10/2024 Do You Use Your Seat Belt Or Car Seat Routinely? Yes Information not available 04/10/2024 Are You Sexually Active? No Information not available 04/10/2024 Do You Have Any Siblings? No Information not available 04/10/2024 Do You Have Smoke And Carbon Monoxide Detectors In Your Home? Yes Information not available 04/10/2024 At What Age Did You Start Smoking Tobacco? 12 Information not available 04/10/2024 Are You Passively Exposed To Smoke? Yes Information no t available 04/10/2024 Are There Any Smokers In Your House? Yes Information not available 04/10/2024 How Much Tobacco Do You Smoke? 1 PPD Information not available 04/10/2024 Do You Use Sunscreen Routinely? Yes Information not available 04/10/2024 Has Tobacco Cessation Counseling Been Provided? Yes Information not available 04/10/2024 On What Date Was Tobacco Cessation Counseling Provided? 07/12/2024 Information not available 07/12/2024 How Many Years Have You Smoked Tobacco? 57 Information not available 04/10/2024 Do You Have Difficulty Walking Or Climbing Stairs? Yes Information not available 04/10/2024 Sex: Female Functional Status Question Answer Note LastModified by Organizat ion Details LastModified Time Do you use any illicit or recreational drugs? No Information not available 04/10/2024 What is your level of alcohol consumption? None Information not available 04/10/2024 Are you currently employed? No Information not available 04/10/2024 Are you able to walk? YESWOREST Information not available 04/10/2024 Do you have difficulty doing errands alone? No Information not available 04/10/2024 Are you able to care for yourself? Yes Information n ot available 04/10/2024 What is your exercise level? None Information not available 04/10/2024 Mental Status Question Answer Note LastModified by Organization D etails LastModified Time Do you have difficulty concentrating, remembering or making decisions? No Information no t available 04/10/2024 Are you or have you been involved with bullying? No Information not available 04/10/2024 Family History Nothing Reported. Medical History No medical history recorded. Gynecological History Statement/Question Response Menses Monthly N HPV Vaccine N Date of Last Pap Smear Current Control Method Abstinence Most Recent Mammogram 05/16/2023 Age at First Child 20 Obstetrics History GPAL:G 0 P 0 0 0 0 Past Encounters Encounter ID Performer Location Encounter Start Date Encounter Closed Date Diagnosis/Indication Diagnosis SNOMED-CT Code Diagnosis ICD10 Code Diagnosis Note [id number] Radha Cesar [address] [address] 04/10/2024 13:43:50 04/10/2024 16:36:15 Neuropathy 462539022 G62.9 Hypothyroidism 35597870 E03.9 Hyperlipidemia 57479366 E78.5 Fatigue 54573570 R53.83 Vitamin D deficiency 347 46429 E55.9 Vitamin B deficiency 479 69039 E53.9 Hyperglycemia 39228541 R 73.9 Chronic ob structive pulmonary disease 82045627 J44.9 Essential hypertension 62085000 I10 Acute exac erbation of chronic obstructive pulmonary disease 272136269 J44.1 Nicotine dependence 5629 4008 F17.200 Body mass index less than 20 979001680 Z68.1 [id number] [place] [phone] 07/12/2024 12:33:51 07/12/2024 14:06:23 Screening for malignant neoplasm of colon 789368021 Z12.11 Essential hypertension 73739194 I10 Fatigue 48968379 R53.83 Vitamin D deficiency 347 90140 E55.9 Vitamin B deficiency 479 90775 E53.9 Hyperglycemia 47847504 R 73.9 Hyperlipidemia 99037798 E78.5 Neuropathy 578545214 G62 .9 Screening for malignant neoplasm of respiratory tract 950267520 Z12.2 Hyponatremia 31034593 E8 7.1 Hyperkalemia 45122336 E8 7.5 Body mass index less than 20 022276006 Z68.1 Health Concerns Section Related Observation LastModified by Organization Detai ls LastModified Time None Recorded Concern Status LastModified by Organization Details LastModified Time None Recorded Advance Directives Directive N: Payers Insurance Date Sequence Insurance Name Policy Number Policy Magaña Covered Member ID Magaña Member ID Guarantor Name 10/16/2024 1 [employer] - DUAL ELIGIBLE (MEDICARE REPLACEMENT/AD VANTAGE - HMO) Anisha Grier [id number] Anisha Grier 10/18/2024 MED[place] [employer] [facility] [id number] Anisha Grier [id number] Anisha Grier 07/19/2024 1 [place]MEDICARE REPLACEMENT HMO) [id number] Anisha Grier [id number] Anisha Grier 04/10/2024 1 *SELF PAY* An dari Grier Notes Date Note Type Note Provider Name and Address Organization Details Recorded Time 04/10/2024 text/html pt here today to est PCP. pt states that she is doing well on current medication regime and has no new complaints today. pt states that she used to see dr soto at dr [facility]ower's office but tx her care here. pt is prescribed suboxone and states that she has been a drug user for many, many years but states that she has been clean for 8 years. but has only been taking the suboxone for 4 months. but thats not the reason she takes it . after looking at pt pradip it looks like dr soto was prescribing pt hydrocodone and gabapentin and then all of the sudden pt is prescribed suboxone. pt told layla she left because she didnt like dr soto. told pt about our MAT program here. pt states that she is almost on the monthly and doesnt want to start all over but doesnt have a ride to [employer]. i told her about our transportation services, which she used today. pt states that she will think about it. told pt about all of our services and that she can just get her meds here before she goes home. pt states that she has used [facility] since 2017 and she will just stick with them. told pt that she will need to sign our controlled contract and do a UDS to refill the gabapentin. pt questioned that and states that she didnt have to do that at her last dr office. i will order routine labwork today. pt also states that she has white coat syndrome and every single time she goes to the doctor her bp is elevated. pt states that she takes her bp at home and it is always normal. states she took it this am and it was 139/69. states that she was prescribed another bp med once and took it and just felt awful and it lowered her bp too much. states that she has appt with lung doc in [facility] [place]. Radha Cesar APRN [address] [facility], [place], [address], [facility] [employer] 04/10/2024 16:35:26 07/12/2024 text/html 69 year old ozzy walters presents for chronic disease f/u. Denies acute concerns today. States she is taking all medication as prescribed. Does state with her last losartan refill she was only given 1 tablet when she needs to take 1.5 tablets. BP 196/120 today but states she always gets white coat syndrome in the dr office, BP at home yesterday 150/50 per pt report. She refused for a 2nd bp reading today in office but states she plans to take her bp when she gets home all call us with reading. pt declines to add more bp med states it makes her bp drop . Denies CP, KEATING, SOA, Visual changes today. Will plan to increase losartan to 1.5 tabs and continue rest of medications.When asked pt if she was aware or advised on labs from march she declines awareness. She was called 3 times and mailed a letter. States she often doesn't answer unknown callers, doesn't have voice mail and her daughter checks her mail. Reviewed lab results with pt and educated her. She became tearful, she declines ETOH. States limited diet of yogurt and microwave meals and drinks only coke, no water. Educated her on better choices and will order repeat labs today. pt agrees with plan and informed her we will call tomorrow or tuesday and advised to answer phone.Request to do cologuard today. Will order that today. Pt agrees with planAlso advised pt to consider LDCT for lung cancer screening. Pt agreeable, will order today.Will f/u with pulm on ee agrees to make appt with vision and transport today. Radha Cesar APRN [address] [facility], [place], [address], [place] [facility] [employer] 07/12/2024 16:21:54 OBGyn Episode No OBEpisode recorded.
--- OUTSIDE RECORDS SUMMARY | 2024-10-19 23:58 | XMS_ITS | Encounter Summary ---
Author Organization [employer] Address [address] [place] [address] Care Team Providers Care Master In Chancery Name Role Phone Unavailable Primary Care Provider Unavailabl e Encounter Details Date Type Department Care Team (Late st Contact Info) Description 07/02/2021 Transcribed Document [facility] Family Medicine [facility] [place] [address] ProviderMorteza MD [address] [place] [id number] Social History Tobacco Use Types Packs/Day [...] Conversion Note - Historical ProviderMD - 07/02/2021 11:03 AM OPERATIONS RECRUITER Evaluation, Occupational Therapy Entered On: 07/03/2021 11:21 EST Performed On: 07/03/2021 10:08 EST by DENISSE HOOD OTR/L General Information, OT Visit Type, OT : Initial evaluation Patient Orders : Order Date Order Ordering 07/02/2021 11:03 Consult to Occupational Therapy Ordered By: YAA XIONG PA Active Diagnoses : 07/02/2021 12:00 Abdominal aortic aneurysm, without rupture Admission Date : 07/02/2021 06:37 Co-treated by, OT : Physical Therapist Personal Devices : Personal Devices No Devices Recorded Assistive Devices : Assistive Devices No Devices Recorded General Information Comment, OT : S/P endovascular aortic stent placement. DENISSE HOOD OTR/L - 07/03/2021 11:16 EST General Status Patient Received Status : Other: Up on BS. Treatment Start Time : 07/03/2021 9:55 EST Patient Left Status : Up in chair, RN/PCT informed, All needs met and within reach RN/PCT Informed Comment : AZAEL Jones Treatment End Time : 07/03/2021 10:08 EST Treatment Time : 13 Minute(s) DENISSE HOOD OTR/L - 07/03/2021 11:16 EST History and Environment, OT Living Situation, Therapy : Home Patient Lives With : Alone Persons Assisting Patient at Home : Alone Professional Skilled Services : None Persons Providing Information : Patient Home Equipment, Therapy : None Home Setup : One story Stairs : No DENISSE HOOD OTR/L - 07/03/2021 11:16 EST Prior LOF Bathing, OT : Independent Prior LOF Bed Mobility : Independent Prior LOF Upper Body Dressing, OT : Independent Prior LOF Lower Body Dressing, OT : Independent Prior LOF Toileting : Independent Prior LOF Transfer : Independent Prior LOF Grooming, OT : Independent Prior LOF for IADLs, OT : Independent DENISSE HOOD OTR/L - 07/03/2021 11:16 EST Prior LOF for IADLs, OT : Pt also demonstrating ind with ADLs and ambulation on eval. 02 at 84 during ambulation. Room air. DENISSE HOOD OTR/L - 07/03/2021 11:16 EST Upper Extremity Right UE Active ROM : WFL Left UE Active ROM : WFL DENISSE HOOD OTR/L - 07/03/2021 11:16 EST Self Care/Home Management, OT Self Feeding Device Comment, OT : IND ADLs DENISSE HOOD OTR/L - 07/03/2021 11:16 EST Functional Mobility Mobility Grid Bed Roll Left : Rehab Complete independence Bed Roll Right : Rehab Complete independence Bed Scooting : Rehab Complete independence Supine to Sit : Rehab Complete independence Sit to Stand : Rehab Complete independence Bed to Chair : Rehab Complete independence Chair to Bed : Rehab Complete independence Stand to Sit : Rehab Complete independence Sit to Supine : Rehab Complete independence DENISSE HOOD OTR/L - 07/03/2021 11:16 EST Cognition Assessment, OT Cognition Assessment, OT : Intact DENISSE HOOD OTR/L - 07/03/2021 11:16 EST Indication Assessment, OT Occupational Therapy Indicated : No Occupational Therapy Not Indicated : At prior level of function, No skilled services indicated ERWINGERALDINEMARY Watkins/Belén - 07/03/2021 11:16 EST Plan of Care, OT OT Tx Plan/Goals Established w Patient : Yes DENISSE HOODMARY/L - 07/03/2021 11:16 EST Treatment Note Subjective Comment : Agreeable. Pt up with RN walking to [facility]. Patient's Response to Treatment : 02 at 90 seated in chair at rest. Additional Objective Information : Pt ambulating on room air, 02 reading 84 during ambulation. Pt walking unit loop. Pt returning to room chair. RN and CM present. Pt unhappy that she is experiencing some head/ear congestion. Pt unhappy that she needed to wear a surgical mask while in hallway. Assessment : No skilled OT warranted. Plan for Treatment : Defer. DENISSE HOOD OTR/Belén - 07/03/2021 11:16 EST Pain Assessment Pain Scaled Used : 0-10 Pain scale Pain Score Post-Intervention. : 0 DENISSE HOOD OTR/Belén - 07/03/2021 11:16 EST Image 1 - Images currently included in the form version of this document have not been included in the text rendition version of the form. Anticipated Discharge Needs, OT/PT Anticipated Discharge to : Home, independently DENISSE HOOD OTR/L - 07/03/2021 11:[address] [facility] OT Charges OT Ther Activities Ea 15 Min : 1 OT Eval Low Complexity : 1 DENISSE HOOD OTR/Belén - 07/03/2021 11:16 EST documented in this encounter Plan of Treatment Not on file documented as of this encounter Visit Diagnoses Not on filedocumented in this encounter
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
--- OUTSIDE RECORDS SUMMARY | 2024-10-19 23:58 | XMS_ITS | Encounter Summary ---
Author Organization [employer] Address [address] [place] [address] Care Team Providers Care Data Communications Engineer Name Role Phone Unavailable Primary Care Provider Unavailabl e Encounter Details Date Type Department Care Team (Late st Contact Info) Description 07/02/[address] [facility] Family Medicine [place] [address] ProviderMorteza MD [address] [place] [address] [id number] Social History Tobacco Use Types Packs/Day Years [...] Conversion Note - Historical Provider, - 07/02/2021 2:06 PM DAY CARE HOME PROVIDER Initial Discharge Planning Entered On: 07/02/2021 14:13 EST Performed On: 07/02/2021 14:06 EST by BENTLEY WHITE Rn-Canine Service Instructor Trainer Initial Assessment I Previously Documented Living Environment : No qualifying data available. Living Situation : Home Patient Lives With : Alone Is the Patient a Caregiver at Home? : No Emergency Contact #1 : [place]a [place] Emergency Contact #1 cell Emergency Contact #1 Relationship : daughter Emergency Contact #2 : Sarah [place] Emergency Contact #2 Emergency Contact #2 Relationship : daughter Identified Medical Decision Maker : Anisha Marvel Identified Medical Decision Maker Number of People in Class : 1 Identified Medical Decision Maker Class : self 2nd Ident. Medical Decision Maker : [place] 2nd Ident. Medical Decision Maker [phone] Secondary Number of People in Class : 4 2nd Ident. Medical Decision Maker Class : Adult Children Enter Doctors Name : Mode Meek Does Patient have PCP Listed? : Yes Medical Durable Power of Pediatric Nurse Name : none Legal Guardian : No Is Guardianship Needed : No BENTLEY WHITE Rn-Canine Service Instructor Trainer - 07/02/2021 14:06 EST Initial Assessment II Sensory and Motor Deficits : None Current Home Treatments and Equipment : Nebulizer BENTLEY WHITE Rn-Canine Service Instructor Trainer - 07/02/2021 14:06 EST Discharge Needs I Anticipated Discharge Date : 07/03/2021 EST Anticipated Discharge To, CM : Home with family care Current Home Treatment/Equipment : Current Home Treatment/Equipment No qualifying data available. Post Acute/Home Treatments : Nebulizer Documentation Status Complete : Yes BENTLEY WHITE Rn-Canine Service Instructor Trainer - 07/02/2021 14:06 EST Discharge Needs II Professional Skilled Services : Professional Skilled Services No qualifying data available. Needs Assistance with Transportation : No Discharge Options Discussed with Patient : Discharge transportation, DME Patient Discharge Goal : Home BENTLEY WHITE Rn-Canine Service Instructor Trainer - 07/02/2021 14:06 EST Narrative Note Narrative Note : Admission for Endoscopic AAA repair Hx AAA, COPD, Anxiety, Hypertension, Hyperlipidemia, PVD 02=2L/93%; drowsy in bed Pt's dtr Christalherlindaadam Phu @ bedside; pt lives alone - has (4) adult children - no AD or living will Alexander will provide transportation on d/c - will not be able to return until 6:30 pm on Tuesday r/t work Daughter Sarah [place] [phone], no numbers or contact information for Jomar Richardson Pt's PLOF semi-independent, does not drive - dtr transports to appt and assist's pt w/bathing no hx of home health or short-term rehab DME=nebulizer PCP - Mode Meek - pt has appt on 07/08 DCP home - pt is able to stay with dtr if needed on d/c; continue to follow BENTLEY WHITE Rn-Canine Service Instructor Trainer - 07/02/2021 14:06 EST documented in this encounter Plan of Treatment Not on file documented as of this encounter Visit Diagnoses Not on filedocumented in this encounter
[2024-10-20] VITALS (16 sets, daily range): BP systolic 99–197; BP diastolic 47–101; PULSE 58–94; RESP 16–20; TEMP 36.4–36.8; O2SAT 93–100; BMI 18.1
--- NOTE | 2024-10-20 00:10 | CT_ITS ---
PROCEDURE INFORMATION: Exam: CT Head Without Contrast Exam date and time: 10/20/2024 1:14 AM Age: 69 years old Clinical indication: Altered mental status/memory loss; Additional info: Fall 1w ago, having peripheral vision issues TECHNIQUE: Imaging protocol: Computed tomography of the head without contrast. Radiation optimization: All CT scans at this facility use at least one of these dose optimization techniques: automated exposure control; mA and/or kV adjustment per patient size (includes targeted exams where dose is matched to clinical indication); or iterative reconstruction. COMPARISON: CT HEAD/BRAIN WO CON 03/09/2021 11:13 AM FINDINGS: Brain: Chronic microvascular ischemic disease without acute intraparenchymal hemorrhage and no obvious acute ischemic stroke. No intra-or extra-axial fluid collection, no supra-or infratentorial mass, no mass effect or midline shift. Cerebral ventricles: Mildly dilated ventricles, sulci and basal cisterns without evidence of hydrocephalus. Paranasal sinuses: No significant mucoperiosteal thickening in the visualized paranasal sinuses. Mastoid air cells: Trace LEFT mastoid effusion. Bones: Visualized skull bones are grossly normal. Soft tissues: NA IMPRESSION: 1. Chronic microvascular ischemic disease and generalized atrophy without acute intracranial abnormality. 2. No evidence of acute hemorrhage, mass lesion or obvious acute ischemic infarction.
--- NOTE | 2024-10-20 00:10 | XR_ITS ---
PROCEDURE INFORMATION: Exam: XR Chest Exam date and time: 10/20/2024 12:54 AM Age: 69 years old Clinical indication: Smoker's cough; Additional info: SOA cough copd PT TECHNIQUE: Imaging protocol: Radiologic exam of the chest. Views: 2 views. COMPARISON: 1. CT ANGIO CHEST 03/09/2021 11:[address] ANGIO CHEST PE PROTOCOL 10/20/2024 1:30 AM FINDINGS: Lungs: Interval increase in size of a spiculated right upper lobe mass when compared to 2020. Stable small calcified granuloma at the medial left lung base. Smaller left lower lobe nodules seen on CT are not clearly appreciated on this radiograph. No pulmonary edema. Pleural spaces: No pneumothorax or pleural effusion. Heart/Mediastinum: No cardiomegaly. Bones/joints: Age indeterminate mild compression fracture of L1. IMPRESSION: 1. Interval increase in size of a spiculated right upper lobe mass when compared to 2020. Better appreciated on CT, and highly suspicious for malignancy. 2. Age indeterminate mild compression fracture of L1.
--- NOTE | 2024-10-20 00:10 | CT_ITS ---
PROCEDURE INFORMATION: Exam: CTA Head With Contrast, Arteriography Exam date and time: 10/20/2024 1:24 AM Age: 69 years old Clinical indication: Visual disturbance; Additional info: Fall 1w ago having peripheral vision issues TECHNIQUE: Imaging protocol: Computed tomographic angiography of the head with contrast. Exam focused on the arteries. Radiation optimization: All CT scans at this facility use at least one of these dose optimization techniques: automated exposure control; mA and/or kV adjustment per patient size (includes targeted exams where dose is matched to clinical indication); or iterative reconstruction. COMPARISON: No relevant recent comparison exams. FINDINGS: ANTERIOR CIRCULATION: Intracranial internal carotid arteries: Mild to moderate chronic predominantly calcific plaque in the mid-distal ICA without acute flow-limiting stenosis. Middle cerebral arteries: M1, M2 and their distal visualized branches are without acute flow limiting stenosis. Anterior cerebral arteries: A1, A2 and their distal visualized branches are without acute flow limiting stenosis. Anterior communicating artery is unremarkable. . POSTERIOR CIRCULATION: Vertebral arteries: Intracranial vertebral arteries and their visualized branches are without acute flow limiting stenosis. Basilar artery: The basilar artery and its visualized proximal branches are without acute flow limiting stenosis. Posterior cerebral arteries: P1, P2 and their distal visualized branches are without acute flow limiting stenosis. IMPRESSION: NO acute flow-limiting stenosis or large vessel occlusion. COMMENT: Recommend followup with MRI if persistent/new/worsening symptoms or symptoms unexplained by the current study. PROCEDURE INFORMATION: Exam: CTA Neck With Contrast Exam date and time: 10/20/2024 1:24 AM Age: 69 years old Clinical indication: Visual disturbance; Additional info: Fall 1w ago having peripheral vision issues TECHNIQUE: Imaging protocol: Computed tomographic angiography of the neck with contrast. Exam focused on the cervical segments of the vasculature. 3D rendering (Not supervised by radiologist): MIP and/or 3D reconstructed images were created by the technologist. Radiation optimization: All CT scans at this facility use at least one of these dose optimization techniques: automated exposure control; mA and/or kV adjustment per patient size (includes targeted exams where dose is matched to clinical indication); or iterative reconstruction. Contrast material: ISOVUE; Contrast volume: 80 ml; Contrast route: INTRAVENOUS (IV); COMPARISON: CT - AGNECK CT angio neck 04/13/2018 9:50 AM FINDINGS: Thoracic Vessels: Atherosclerotic disease of the visualized aortic arch without aortic aneurysm or dissection. Calcific plaque at the origin of the neck vessels without significant narrowing at the origin. 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 . Common Carotid Arteries: Eccentric calcific/noncalcific plaque along the leong of the common carotid arteries without acute flow limiting stenosis. . Cervical Internal Carotid Arteries: [id number] calcific/noncalcific plaque at the LEFT carotid bifurcation extending to the carotid bulb with 60-70% focal narrowing at the origin of the LEFT internal carotid artery. RIGHT carotid endarterectomy without acute flow-limiting stenosis. Remainder of the cervical internal carotid arteries are unremarkable without acute flow-limiting stenosis. No evidence of an aneurysm or a dissection. . Vertebral Arteries: Calcific plaque at the origin of the vertebral arteries resulting in moderate to severe focal narrowing at the origin. Remainder of the cervical vertebra arteries are unremarkable without acute flow-limiting stenosis. . Other Structures: Osteopenia with chronic degenerative changes in the visualized spine and shoulder joint(s). Spiculated malignant RIGHT apical lung mass measuring 3.0 x 3.3 x 3.4 cm. Extensive septal and peribronchial thickening with narrowing of the subsegmental airways. IMPRESSION: [id number] calcific/noncalcific plaque at the LEFT carotid bifurcation extending to the carotid bulb with 60-70% focal narrowing at the origin of the LEFT internal carotid artery. Calcific plaque at the origin of the vertebral arteries resulting in moderate to severe focal narrowing at the origin. 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 Spiculated malignant RIGHT apical lung mass measuring 3.0 x 3.3 x 3.4 cm. Extensive biapical septal/peribronchial thickening suspicious for pulmonary edema although possibility of lymphangitic spread of tumor on the RIGHT can not be excluded. REFERENCES: NASCET CRITERIA. The degree of stenosis in the cervical segment of the internal carotid artery is based on NASCET criteria. Normal is no stenosis. Mild is less than 50% stenosis. Moderate is 50-69% stenosis. Severe is 70% to 99% stenosis. Total occlusion is no detectable patent lumen.
[2024-10-20] MEDS: METHYLPREDNISOLONE SOD SUCC 125MG VIAL 125 MG IV (00:16)
[2024-10-20 00:21] LABS: VBG Base Excess 1.3 mmol/L (-2.4-2.3); VBG HCO3 26.7 mmol/L (23-30); VBG Oxygen Saturation 81.9 % (50-70); VBG PCO2 47.6 mmol/L (35-51); VBG PH 7.37 mmol/L (7.31-7.41); VBG PO2 43.9 mmol/L (28-40); VBG Total CO2 28.1 mmol/L (23-27)
[2024-10-20 00:22] LABS: Basophils % 0.6 % (0.1-2.0); Eosinophils % 0.3 % (0.1-12.0); Hematocrit 44.1 % (37.0-47.0); Hemoglobin 14.3 g/dL (12.2-16.2); Immature Granulocytes # 0.02 10^3uL; Immature Granulocytes % 0.3 %; Lymphocytes # 1.9 K/mm3 (0.7-4.5); Lymphocytes % 28.1 % (10-50); Mean Corpuscular HGB Conc 32.4 g/dL (31.8-35.4); Mean Corpuscular Hemoglobin 26.2 pg (27.0-31.2); Mean Corpuscular Volume 80.8 fl (81-99); Mean Platelet Volume 8.9 fl (7.4-10.4); Monocytes # 0.6 K/mm3 (0.1-1.0); Monocytes % 9.6 % (1.7-9.3); Neutrophils # 4.1 K/mm3 (1.8-7.8); Neutrophils % 61.1 % (37.0-80.0); Nucleated Red Blood Cells # 0 10^3/uL; Nucleated Red Blood Cells % 0 %; Platelet Count 319 K/mm3 (142-424); Red Blood Count 5.46 M/mm3 (4.20-5.40); Red Cell Distribution Width 14.2 % (11.5-17.5); Red Cell Distribution Width-SD 41.1 fL; White Blood Count 6.7 K/mm3 (4.8-10.8)
[2024-10-20 00:23] LABS: Lactate Venous 2.2 mmol/L (0.4-2.0)
[2024-10-20] MEDS: IPRATROPIUM/ALBUTEROL 3 ML NEB 9 ML IH (00:26)
[2024-10-20 00:36] LABS: INR 1.16 (0.9-1.1); Prothrombin Time 12.7 seconds (10.1-12.5)
[2024-10-20 00:38] LABS: Alanine Aminotransferase 14 U/L (12-78); Albumin Level 4.1 g/dl (3.5-5.0); Albumin/Globulin Ratio 0.8 (1.1-1.8); Alkaline Phosphatase 89 U/L (38-126); Anion Gap 10.8 mEq/L (5-15); Aspartate Amino Transferase 31 U/L (14-36); Bilirubin,Total 0.7 mg/dl (0.2-1.3); Blood Urea Nitrogen 17 mg/dl (7-17); Calcium 9.2 mg/dl (8.4-10.2); Carbon Dioxide 27 mmol/L (22.0-30.0); Chloride 95 mmol/L (98-107); Creatinine Clearance Estimated 42 mL/min (50-200); Estimated Glomerular Filt Rate 99 ml/min (>60); GFR (African American) 120 ML/MIN (>60); Globulin 4.9 g/dL (1.3-3.2); Glucose 132 mg/dl (74-100); Potassium 4.8 mmoL/L (3.5-5.1); Sodium 128 mmol/L (136-145)
[2024-10-20 00:42] LABS: D-Dimer 3.24 ug/mL (0.0-0.5)
[2024-10-20 00:51] LABS: NT Pro Brain Natriuretic Pep. 14700 pg/mL (0-125); Troponin I 0.04 ng/ml (0.00-0.034)
--- NOTE | 2024-10-20 00:52 | CT_ITS ---
PROCEDURE INFORMATION: Exam: CTA Chest With Contrast Exam date and time: 10/20/2024 1:30 AM Age: 69 years old Clinical indication: Smoker's cough; Additional info: Dimer 3.24 cough SOA weak TECHNIQUE: Imaging protocol: Computed tomographic angiography of the chest with contrast. Exam focused on the arteries. 3D rendering (Not supervised by radiologist): MIP and/or 3D reconstructed images were created by the technologist. Radiation optimization: All CT scans at this facility use at least one of these dose optimization techniques: automated exposure control; mA and/or kV adjustment per patient size (includes targeted exams where dose is matched to clinical indication); or iterative reconstruction. Contrast material: ISOVUE; Contrast volume: 80 ml; Contrast route: INTRAVENOUS (IV); COMPARISON: 1. CT ANGIO CHEST 03/09/2021 11:[address] ANGIO ABDOMEN PELVIS 09/03/2021 1:28 PM FINDINGS: Pulmonary arteries: No pulmonary emboli identified. Aorta: Atherosclerotic disease within the thoracic aorta. No aneurysm or dissection. Postoperative changes from previous endovascular repair of an abdominal aortic aneurysm, incompletely imaged. Lungs: A 4 cm spiculated mass in the posterior right upper lobe. Interval increase in size of an air-filled bulla in the left lower lobe, with new surrounding nodules, measuring up to 9 mm. Minimal atelectasis in the anterior inferior left lower lobe. A stable 9 mm calcified granuloma in the posteromedial left lower lobe. Pleural spaces: No pneumothorax or pleural effusion. Heart: No cardiomegaly. No pericardial effusion. Coronary arteries: Severe coronary artery calcifications. Lymph nodes: Mediastinal and bilateral hilar adenopathy, with a benefits representative precarinal node measuring up to 1.7 cm in short axis diameter. Bones/joints: Age indeterminate mild compression fracture of L1, new in comparison to 2021. No evidence of osseous metastatic disease. Soft tissues: Unremarkable. IMPRESSION: 1. No pulmonary emboli identified. 2. A 4 cm spiculated mass in the posterior right upper lobe. Markedly increased in comparison to 2020, and highly suspicious for malignancy. Consider non-emergent PET/CT or tissue sampling.(Reference: Juan Miguel) 3. Interval increase in size of an air-filled bulla in the left lower lobe, with new surrounding nodules, measuring up to 9 mm. Concerning for metastases given the suspicious right upper lobe mass. Atypical infectious/inflammatory etiology is another consideration. 4. A stable 9 mm calcified granuloma in the posteromedial left lower lobe. 5. Mediastinal and bilateral hilar adenopathy, with a benefits representative precarinal node measuring up to 1.7 cm in short axis diameter. 6. Age indeterminate mild compression fracture of L1, new in comparison to 2021. 7. THIS REPORT CONTAINS FINDINGS THAT MAY BE CRITICAL TO PATIENT CARE. The findings were verbally communicated via telephone conference with Alma Alvarez at 2:35 AM EDT on 10/20/2024. The findings were acknowledged and understood. REFERENCES: Juan Miguel Mena, et al. Guidelines for Management of Incidental Pulmonary Nodules Detected on CT Images: From the Fleischner Society 2017. Radiology. 2017;284(1):228-243.
--- NOTE | 2024-10-20 00:57 | ED_ITS ---
Discharge Plan Disposition Patient Disposition: Admitted Condition: Fair Prescriptions Prescriptions: No Action aspirin 81 mg tablet,delayed release (DR/EC) 81 mg PO DAILY Qty: 90 0RF fenofibrate 150 mg capsule 150 mg PO DAILY Qty: 30 2RF alendronate 10 mg tablet 10 mg PO DAILY Qty: 30 2RF ergocalciferol (vitamin D2) 1,250 mcg (50,000 unit) capsule 50,000 unit PO QWEEK Qty: 10 2RF Trelegy Ellipta 100-62.5-25 mcg blister with device 1 inh inhalation DAILY Qty: 60 3RF rosuvastatin 20 mg tablet See Rx Instructions .ROUTE .COMPLEX Qty: 90 1RF Dose Instruction: TAKE 1 TABLET BY MOUTH DAILY Rx Instructions: TAKE 1 TABLET BY MOUTH DAILY clopidogrel 75 mg tablet See Rx Instructions .ROUTE .COMPLEX Qty: 90 1RF Dose Instruction: TAKE 1 TABLET BY MOUTH ONCE DAILY-BLOOD THINNER Rx Instructions: TAKE 1 TABLET BY MOUTH ONCE DAILY-BLOOD THINNER metoprolol succinate 25 mg tablet extended release 24 hr See Rx Instructions .ROUTE .COMPLEX Qty: 90 2RF Dose Instruction: TAKE 1 TABLET BY MOUTH ONCE DAILY Rx Instructions: TAKE 1 TABLET BY MOUTH ONCE DAILY albuterol sulfate 90 mcg/actuation HFA aerosol inhaler See Rx Instructions .ROUTE .COMPLEX Qty: 8.5 1RF Dose Instruction: 2 PUFFS INHALED THREE TIMES A DAY FOR LUNGS Rx Instructions: 2 PUFFS INHALED THREE TIMES A DAY FOR LUNGS losartan 50 mg tablet See Rx Instructions .ROUTE .COMPLEX Qty: 45 0RF Dose Instruction: TAKE 1.5 TABLETS BY MOUTH ORALLY DAILY FOR 30 DAYS Rx Instructions: TAKE 1.5 TABLETS BY MOUTH ORALLY DAILY FOR 30 DAYS levothyroxine 25 mcg tablet See Rx Instructions .ROUTE .COMPLEX Qty: 30 0RF Dose Instruction: TAKE 1 TABLET BY MOUTH ONCE DAILY- PT IS TO TAKE 20 MINUTES BEFORE EATING OF THE MORNING. Rx Instructions: TAKE 1 TABLET BY MOUTH ONCE DAILY- PT IS TO TAKE 20 MINUTES BEFORE EATING OF THE MORNING. albuterol sulfate 2.5 MG/NEB solution for nebulization 2.5 mg INHALATION Q6H PRN (Reason: soa) Referrals Follow up/Referrals: Radha Cesar APRN [Primary Care Provider, Medical] - See instructions Clinical Impressions Clinical Impression: Elevated brain natriuretic peptide (BNP) level, Hyponatremia, Subclavian artery thrombosis, Lung mass, Productive cough Print Language Print Language: Yakut Discharge ED Provider: Alma Hsieh General Chief Complaint: Shortness of Breath/Dyspnea Stated Complaint: SOA Time Seen by Provider: 10/20/24 00:02 Mode of Arrival: Wheelchair Source of Information: Patient Description of Symptoms (Recalled from ER Triage Doc. by RN): SOA Pt presents to the ED with c/o SOA X 8 days. Pt has hx of COPD. History of Present Illness HPI narrative: 69-year-old female with history of COPD who continues smoking as well as history of prediabetes, hypertension, PAD presents to the ER with complaints of shortness of breath, cough, generalized weakness. Patient reports for the last week or so she has felt generally weak. She states she had a fall 1 week ago without loss of consciousness but states that she fell because she is having vision changes. She states her vision is not blurry but her peripheral vision makes it seem like things are closer in her peripheral vision than they actually are. She states that is why she fell last week. She has no numbness, tingling, or weakness. She states she has been having cough and congestion with associated shortness of breath despite using her nebulizer at home. 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 Patient also states she wishes Dr. Meek was still practicing. She therefore has not seen her PCP for any of her complaints and does not follow closely with her PCP. Patient reports no chest pain. Patient tried to blow off her statements about her fall and her vision stating she is mostly concerned about her breathing. No documented fevers. Daughter at bedside is very concerned about cough and generalized weakness. No abdominal complaints. Related Data Home Medications ?Medication ?Instructions ?Recorded ?Confirmed albuterol sulfate 2.5 mg/3 mL 2.5 mg inhalation Q6H OH N soa 12/29/18 11/10/23 (0.083 %) solution for nebulization Previous Rx's ?Medication ?Instructions ?Recorded aspirin 81 mg tablet,delayed 81 mg PO DAILY thinner #9 0 tabs 09/19/20 release ergocalciferol (vitamin D2) 1,250 50,000 unit PO QWEEK Supplement 04/20/23 mcg (50,000 unit) capsule #10 caps alendronate 10 mg tablet 10 mg PO DAILY #30 tabs 09/14 08/06 fenofibrate 150 mg capsule 150 mg PO DAILY #30 caps fluticasone fur. 100 mcg-umeclid 1 inh inhalation OMERO Y COPD #60 ea 12/28/23 62.5 mcg-vilant 25 mcg inhalat.powder (Trelegy Ellipta) rosuvastatin 20 mg tablet See Rx Instructions .Route 0 01/17/24 .COMPLEX #90 tabs clopidogrel 75 mg tablet See Rx Instructions .Route 0 02/01/24 .COMPLEX #90 tabs metoprolol succinate 25 mg See Rx Instructions .Route 02/01/24 tablet,extended release 24 hr .COMPLEX #90 tabs albuterol sulfate 90 mcg/actuation See Rx Instructions .Route 02/27/24 aerosol inhaler .COMPLEX #8.5 grams losartan 50 mg tablet See Rx Instructions .Route 1 .COMPLEX #45 tabs levothyroxine 25 mcg tablet See Rx Instructions .Route 07/17/24 .COMPLEX #30 tabs Allergies Allergy/AdvReac Type Severity Reaction Status Date / Time Sulfa (Sulfonamide Allergy Mild Anaphylaxis Verified 11/10/23 09:19 Antibiotics) [facility] Disclaimer: The information contained in this section may have been updated after the patient was seen, as this information can be updated by other users. Medical History (Updated 10/20/24 @ 03:05 by Alma Hsieh MD) Restless sleeper Snoring Smoker Palpitations Tachycardia HTN (hypertension), benign HLD (hyperlipidemia) Carotid stenosis Ligamentum flavum hypertrophy Bulging of lumbar intervertebral disc Facet hypertrophy of lumbar region Anxiety Surgical History H/O breast biopsy Hx of tonsillectomy Family History Other Anxiety Social History Smoking Status: Current every day smoker tobacco type: cigarettes packs per day: 1 second hand exposure: Yes alcohol intake: never substance use type: denies use current occupational status: retired Travel in the last 8 weeks?: None household members: none housing: apartment number of children: 4 caffeine: No Have you lived/traveled outside [place] in past 30 days?: No Contact w/someone who lives/traveled outside US past 30 days?: No Exposure to someone with infectious disease in past 14 days?: No Do you have a fever (greater than 100.4 F or 38 C)?: No Have you tested positive for COVID-19?: No Exposed to someone with COVID-19 in past 14 days?: No Do you have a sore throat?: No Do you have a cough?: No Do you have any weakness?: No Do you have any diarrhea?: No Are you experiencing any unusual bleeding?: No Do you have any muscle aches/pain?: No Do you have any abdominal pain?: No Are you experiencing loss of taste or smell?: No Other Medical History Have you received the Flu Vaccine for this season: No Have you received the Pneumonia Vaccine: No ROS Obtained: Yes Systems reviewed as appropriate & no additional complaints except as documented Per HPI Physical Exam General General appearance: alert and in no apparent distress Comment: Chronically ill-appearing, frail appearing Head Head exam: atraumatic and normocephalic Eye Eye exam: Present PERRL and EOMI ENT ENT exam: Present mucous membranes moist Neck Neck exam: Present normal inspection and full ROM Chest Chest inspection: Present symmetric chest wall rise Respiratory Respiratory exam: Present wheezes (Diffuse); Absent normal lung sounds bilaterally (Rhonchi and rales throughout the lungs), respiratory distress, stridor, accessory muscle use or prolonged expiratory phase Cardiovascular Cardiovascular exam: Present regular rate and normal rhythm Abdominal Exam Abdominal exam: Present soft; Absent distention, tenderness, guarding or rebound Extremities Exam Extremities exam: Present full ROM; Absent edema Neurological Exam Neurological exam: Present alert, oriented X3 and other (Peripheral vision cárdenas are slightly diminished throughout, however most notably her depth perception in the periphery is abnormal); Absent motor sensory deficit Psychiatric Psychiatric exam: Present normal affect and normal mood Skin Skin exam: Present warm and dry HEART Score HEART Score HEART Score assessment performed?: Yes History (anamnesis): Slightly suspicious ECG: Non-specific disturbance Age: >65 years Risk factors: Atherosclerosis history Troponin: 1-3x normal limit HEART Score: 6 Procedures Miscellaneous Procedure Procedure Performed: Limited Cardiac Ultrasound Indication: Shortness of breath Identified cardiac views: [-Cardiac parasternal long axis] [-Cardiac apical four-chamber] [-Cardiac subxiphoid] Findings: Cardiac activity present with no gross wall motion abnormality, no pericardial effusion, right heart is enlarged but not greater than 1:1 RV:LV Impression: Cardiac activity present with no gross wall motion abnormality, no pericardial effusion, right heart is enlarged but not greater than 1:1 RV:LV, no right heart strain Images were saved to permanent archive The study was technically adequate CPT: 77064 This study was performed by me, and I personally interpreted all images/videos. Based on my clinical judgement, these images were adequate and did not necessitate further imaging. Critical Care Critical Care Time Critical Care Time: Yes Attestation: On 10/19/24, the high probability of a clinically significant, sudden or life threatening deterioration of the following system(s) required my full and direct attention, intervention and personal management. The time I documented below is in addition to time spent performing reported procedures but includes the following listed in this critical care notation. Total Time Total Critical Care Time: 35 Medical Decision Making Medical Records Medical records reviewed: Yes I reviewed the patient's medical records. [place] Inquiry Pt receiving controlled substance: No Vital Signs Vital Signs: 10/19/24 23:54 10/20/24 00:26 10/20/24 00:26 Temperature 98.4 F Temperature Source Oral Pulse Rate 90 Pulse Rate [Left] 82 Respiratory Rate 21 Blood Pressure Blood Pressure [Right Arm] 180/90 H Blood Pressure Mean Blood Pressure Mean [Right Arm] 120 Blood Pressure Source [Right Arm] Automatic Cuff Blood Pressure Position [Right Arm] Sitting 02 Sat by Pulse Oximetry 91 L 94 L Oxygen Delivery Method Room Air Oxygen Flow Rate (LPM) 10/20/24 00:26 10/20/24 00:30 10/20/24 01:38 Temperature Temperature Source Pulse Rate 70 80 94 H Pulse Rate [Left] Respiratory Rate 18 19 Blood Pressure 175/94 H 197/78 H Blood Pressure [Right Arm] Blood Pressure Mean 118 101 Blood Pressure Mean [Right Arm] Blood Pressure Source [Right Arm] Blood Pressure Position [Right Arm] 02 Sat by Pulse Oximetry 100 96 Oxygen Delivery Method Nasal Cannula Oxygen Flow Rate (LPM) 2 10/20/24 02:00 10/20/24 02:12 Temperature Temperature Source Pulse Rate 94 H Pulse Rate [Left] Respiratory Rate Blood Pressure 192/94 H Blood Pressure [Right Arm] Blood Pressure Mean 116 Blood Pressure Mean [Right Arm] Blood Pressure Source [Right Arm] Blood Pressure Position [Right Arm] 02 Sat by Pulse Oximetry 96 94 L Oxygen Delivery Method Nasal Cannula Oxygen Flow Rate (LPM) 2 Lab Data Labs: Lab Results 10/20/24 00:05: HCV Ab NATALIYA w/Rflx PCR Qn Reactive, HIV Ag/Ab Combo Qual Negative 10/20/24 00:10: VBG pH 7.37, VBG pCO2 47.6, VBG pO2 43.9 H, VBG HCO3 26.7, VBG Total CO2 28.1 H, VBG O2 Saturation 81.9 H, VBG Base Excess 1.3, VBG Lactic Acid 2.2 H 10/20/24 00:16: WBC 6.7, RBC 5.46 H, Hgb 14.3, Hct 44.1, MCV 80.8 L, MCH 26.2 L, MCHC 32.4, RDW 14.2, Plt Count 319, MPV 8.9, Neut % (Auto) 61.1, Lymph % (Auto) 28.1, [place] % (Auto) 9.6 H, Eos % (Auto) 0.3, Baso % (Auto) 0.6, Neut # (Auto) 4.1, Lymph # (Auto) 1.9, [place] # (Auto) 0.6, Eos # (Auto) 0.0, Baso # (Auto) 0.0, PT 12.7 H, INR 1.16 H, D-Dimer 3.24 H, Sodium 128 L, Potassium 4.8, Chloride 95 L, Carbon Dioxide 27, Anion Gap 10.8, BUN 17, Creatinine 0.60, Estimated Creat Clear 42, Estimated GFR 99, Est GFR ( Amer) 120, Glucose 132 H, Calcium 9.2, Total Bilirubin 0.7, AST 31, ALT 14, Alkaline Phosphatase 89, Troponin I 0.04 H, NT-Pro-B Natriuret Pep 71389 H, Total Protein 9.0 H, Albumin 4.1, G lobulin 4.9 H, Albumin/Globulin Ratio 0.8 L 10/20/24 00:16 10/20/24 00:16 Response Orders (Tests/Meds): ED MEDICATIONS Generic Name Dose Route Start Last Admin Trade Name Freq PRN Reason Stop Dose Admin Azithromycin 500 mg/ Sodium 250 mls @ 250 mls/hr 10/20/24 02:00 10/20/24 02:03 Chloride IV 10/30/24 01:59 250 mls/hr Q24H SOTERO Administration Discontinued Medications Generic Name Dose Route Start Last Admin Trade Name Yola PRN Reason Stop Dose Admin Albuterol/Ipratropium 9 ml 10/20/24 00:12 10/20/24 00:26 Ipratropium/Albuterol 3 Ml Neb IH 10/20/24 00:13 9 ml ONCE ONE Administration Iopamidol 160 ml 10/20/24 01:41 10/20/24 01:43 Iopamidol-370 (76%);100ml Bottle IV 10/20/24 01:42 160 ml ONCE ONE Administration Methylprednisolone Sodium Succinate 125 mg 10/20/24 00:12 10/20/24 00:16 Methylprednisolone Sod Succ 125mg Vial IV 10/20/24 00:13 125 mg ONCE ONE Administration Sodium Chloride 80 ml 10/20/24 01:41 10/20/24 01:43 0.9 % Sodium Chloride 50 Ml Vial IV 10/20/24 01:42 80 ml ONCE ONE Administration Sodium Chloride 10 ml 10/20/24 01:41 10/20/24 01:43 Sodium Chloride 0.9% 10ml Syr (Rad Only) IV 10/20/24 01:42 10 ml ONCE ONE Administration ORDERS Category Date Time Status CT angio chest PE protocol Stat Cat Scan 10/20/24 00:[address] angio head Stat Cat Scan 10/20/24 00:[address] angio neck Stat Cat Scan 10/20/24 00:[address] head/brain wo con Stat Cat Scan 10/20/24 00:10 Completed POCUS Point of Care (ER Only) Stat Exams 10/20/24 01:30 Completed XR chest 2V Stat Exams 10/20/24 00:10 Completed Complete Blood Count Auto Diff Stat Lab 10/20/24 00:16 Completed Comprehensive Metabolic Panel Stat Lab 10/20/24 00:16 Completed D-Dimer Stat Lab 10/20/24 00:16 Completed HCV RNA PCR, Quant Stat Lab 10/20/24 00:05 Received HIV Combo Stat Lab 10/20/24 00:05 Completed Hepatitis C Ab Qual. W/ RFX Stat Lab 10/20/24 00:05 Completed NT Pro Brain Natriuretic Pep. Stat Lab 10/20/24 00:16 Completed Prothrombin Time INR Stat Lab 10/20/24 00:16 Completed Troponin I Q3H Lab 10/20/24 03:15 Ordered Troponin I Q3H Lab 10/20/24 06:15 Ordered Troponin I Stat Lab 10/20/24 00:16 Completed Urinalysis and Microscopic Stat Lab 10/20/24 01:55 Received Venous Blood Gas Stat RT 10/20/24 00:10 Completed MDM Narrative Medical Decision Narrative: In summary, this 69-year-old female with comorbidities described in HPI presents to the emergency department today with cough, shortness of breath, generalized weakness, fall 1 week ago according to the patient reportedly due to abnormal peripheral vision. On initial evaluation patient is dynamically stable, afebrile, GCS 15, patient does not have any localizing neurologic deficits though she does have slightly abnormal peripheral vision where things appear closer in her peripheral vision than they actually are. Rhonchi and rales bilaterally in the lungs with wheezes but no respiratory distress. Patient is frail and chronically ill-appearing. No peripheral edema. Benign abdominal exam. Differential diagnosis includes but is not limited to ACS, PE, pneumonia, COPD exacerbation, hypercarbia, intracranial bleed, mass, or midline shift, also considered the possibility of stroke though patient is well outside the window for stroke alert since she started having vision changes more than a week ago, electrolyte abnormality, dehydration, kidney dysfunction, urinary tract infection, among others. Ruling out the most morbid conditions drove my assessment. Based on these concerns, I ordered serum labs, cardiac workup, D- dimer, CT imaging of the head and neck including angiography, chest x-ray. ECG personally interpreted demonstrates sinus rhythm, rate 84, normal OH, normal QTc, patient has multiple ST abnormalities including depressions in the inferior lateral leads without reciprocal elevation, no STEMI. Patient does have evidence of incomplete right bundle branch block, no previous EKG for comparison. Patient received DuoNebs, Solu-Medrol initially for treatment. Labs personally reviewed demonstrate no leukocytosis or anemia, platelets normal, PT/INR mildly elevated, D-dimer significantly elevated at 3.24, CTA PE is indicated and has been added to workup. VBG with normal pH, no hypercarbia, lactic on VBG 2.2, patient has new hyponatremia sodium 128, normal BUN and creatinine, BNP significantly elevated at 14,700, no previous results for comparison, troponin elevated at 0.04 which is new compared to previous and likely represents NSTEMI in the setting of acute illness, possible hypoxic episodes at home given patient's COPD history and description of shortness of breath. I am also concerned for possible new onset heart failure with troponin elevation, abnormal appearing ECG, and significantly elevated BNP. Also concern for COPD exacerbation with increased sputum production and cough so patient is receiving azithromycin. [id number] ultrasound personally performed and interpreted does not demonstrate wall motion abnormality however the right heart is equal in size to the left heart, no pericardial effusion. XR personally interpreted demonstrates no lobar infiltrate, patient has significant hyperinflation consistent with long history of COPD, abnormality in the right upper lobe likely represents nodule, better visualized on CT. See radiology read for final interpretation. CT imaging personally interpreted demonstrates no large PE, patient has large nodule on the right upper lobe as well as cavitary area in the posterior aspect of the left lung that looks like a bleb and questionable infiltrate along the left fissure. Radiology read pending. I do not appreciate large right upper lobe lesion on previous imaging. CT head personally interpreted does not demonstrate fluid, mass, or midline shift, radiology read pending. On CT angiography I do not appreciate LVO. Radiology read pending. When patient came back from CT she was hypoxic and placed on nasal cannula. This is a new oxygen requirement. Repeat ECG was performed at that time and personally interpreted demonstrating sinus rhythm, rate 98, short OH, normal QTc, RBBB, inferior lateral depressions more pronounced likely secondary to increased rate, no STEMI. I received a phone call from reading radiologist regarding the CTA chest. He reports he does not appreciate PE however patient has large right upper lobe mass concerning for malignancy. He reports that on lung CT from December 2020 there was a nearly 1 cm suspicious appearing mass but it is obviously significantly enlarged today. He also reports small area surrounding the blood in the left lung possibly other masses versus infectious etiology. There is also mediastinal and hilar adenopathy. After receiving this report, I reviewed previous family medicine notes from 2020 including multiple visits shortly after patient's abnormal findings on CT scan. They do not demonstrate that the patient was ever told about the spiculated lesion. There was never any repeated CT imaging except CTA chest in February 2021 after trauma which did not discuss lesion. I then received a phone call from reading radiologist regarding the head and neck CTAs which do not demonstrate intracranial large vessel occlusion, however patient does have stenosis of the left carotid bulb with 60 to 70% narrowing as well as high-grade stenosis with near complete occlusion due to thrombus (believed to be acute) in the mid left subclavian artery extending to the origin of the left vertebral artery. I appreciate the input from the reading radiologists. I believe patient requires admission for management of many ongoing problems including newly elevated BNP, NSTEMI, hyponatremia, and these new vascular abnormalities. She will also require follow-up for the lung mass. I discussed this case with the hospitalist including the left subclavian clot. He reached out to the timber management professor Dr. Silverman on-call about whether or not this patient was appropriate for admission to this facility and whether this could potentially be stented here at this facility. They agree that the patient is appropriate for admission at this facility. He requested I initiate Lovenox 1 mg/kg. This has been administered in the ER. Patient was accepted for admission. I updated the patient on all findings, we discussed all of the ongoing problems and plans for management. She is agreeable to this. Patient was admitted in stable condition.
[2024-10-20 01:20] LABS: HIV Combo NEGATIVE (Negative)
[2024-10-20 01:28] LABS: Hepatitis C Ab Qual. W/ RFX REACTIVE (Negative)
--- NOTE | 2024-10-20 01:40 | ECG_ITS ---
APPROVED REPORT Exam: Resting ECG HR:98 bpm ECG Measurements Heart Rate 98 AXES MN 108 P 88 QRSd 110 QRS -75 QT 397 T -78 QTc 453 Conclusion SINUS RHYTHM WITH SHORT MN INTERVAL INDETERMINATE AXIS RIGHT BUNDLE BRANCH BLOCK [120+ ms QRS DURATION, UPRIGHT V1, 40+ ms S IN I/aVL/V4/V5/V6] LEFT ANTERIOR FASCICULAR BLOCK [QRS AXIS <= -45, QR IN I, RS IN II] ST DEVIATION AND MODERATE T-WAVE ABNORMALITY, CONSIDER ANTEROLATERAL ISCHEMIA [-0.1+ mV T-WAVE IN V3-V6] ST DEVIATION AND MODERATE T-WAVE ABNORMALITY, CONSIDER INFERIOR ISCHEMIA [-0.1+ mV T-WAVE IN II/aVF] Slightly more pronounced ST depressions in the inferior and lateral leads then on initial ECG, no reciprocal ST elevation, no STEMI Electronically signed by : SELENA BACA, 10/20/2024 03:50:44
[2024-10-20] MEDS: IOPAMIDOL-370 (76%);100ML BOTTLE 160 ML IV (01:43)
[2024-10-20] MEDS: SODIUM CHLORIDE 0.9% 10ML SYR (RAD ONLY) 10 ML IV (01:43)
[2024-10-20] MEDS: 0.9 % SODIUM CHLORIDE 50 ML VIAL 80 ML IV (01:43)
[2024-10-20] MEDS: AZITHROMYCIN 500 MG in 0.9 % SODIUM CHLORIDE 250 ML 250 MG IV (02:03)
[2024-10-20 02:14] LABS: Microscopic, Urine URINE MICROSCOPIC (MICROSCOPIC)
[2024-10-20 02:16] LABS: Appearance,Urine CLEAR (Clear); Bilirubin,Urine Negative (Negative); Blood, Urine TRACE-I (Negative); Color,Urine YELLOW (Yellow); Glucose,Urine (UA) Negative (Negative); Ketones,Urine Negative (Negative); Leukocyte Esterase,Urine Negative (Negative); Nitrate,Urine Negative (Negative); Protein,Urine 1+ (Negative)
[2024-10-20] MEDS: ENOXAPARIN 100MG/ML SYRINGE 50 MG SUBCUT (03:11)
--- NOTE | 2024-10-20 03:13 | EXP.HP ---
History of Present Illness *Admission Date: 10/20/24 *Reason for visit:: Weakness *History of present illness: 6-year-old female comes to the ER due to progressive and persistent weakness over the last week. She has not been able to perform her ADLs at home as a result of her symptoms. She is also having significant shortness of breath which was very functionally limiting. She has been having a productive cough as well denying fevers chills or other infectious symptoms. In the ER hypoxemic started on nasal cannula. EKG normal sinus rhythm with ST depressions in inferolateral leads. Mildly elevated troponin. Elevated BNP. Bedside ultrasound demonstrated normal LVEF and mild hypokinesis in the lateral wall. RV dilated. CTA chest 4 cm spiculated mass in the posterior right upper lobe suspicious for malignancy with surrounding nodules that may represent atypical infectious etiology and the granuloma CTA neck with high-grade subclavian artery stenosis and thrombus Discussed findings with patient. Will admit perform further diagnostic testing. Provide symptomatic management for her anxiety History independently obtained. Diagnostics and lab eval independently interpreted. Prior records reviewed. Discussed case with ER physician [facility] Disclaimer: The information contained in this section may have been updated after the patient was seen, as this information can be updated by other users. Medical History (Updated 10/20/24 @ 03:05 by Alma Hsieh MD) Restless sleeper Snoring Smoker Palpitations Tachycardia HTN (hypertension), benign HLD (hyperlipidemia) Carotid stenosis Ligamentum flavum hypertrophy Bulging of lumbar intervertebral disc Facet hypertrophy of lumbar region Anxiety Surgical History H/O breast biopsy Hx of tonsillectomy Family History Other Anxiety Social History Smoking Status: Current every day smoker tobacco type: cigarettes packs per day: 1 second hand exposure: Yes alcohol intake: never substance use type: denies use current occupational status: retired Travel in the last 8 weeks?: None household members: none housing: apartment number of children: 4 caffeine: No Have you lived/traveled outside US in past 30 days?: No Contact w/someone who lives/traveled outside US past 30 days?: No Exposure to someone with infectious disease in past 14 days?: No Do you have a fever (greater than 100.4 F or 38 C)?: No Have you tested positive for COVID-19?: No Exposed to someone with COVID-19 in past 14 days?: No Do you have a sore throat?: No Do you have a cough?: No Do you have any weakness?: No Do you have any diarrhea?: No Are you experiencing any unusual bleeding?: No Do you have any muscle aches/pain?: No Do you have any abdominal pain?: No Are you experiencing loss of taste or smell?: No Other Medical History Have you received the Flu Vaccine for this season: No Have you received the Pneumonia Vaccine: No Review of Systems Review of Systems Review of systems:: pertinent systems reviewed and negative unless documented below Meds Home Medications and Allergies Home Medications ?Medication ?Instructions ?Recorded ?Confirmed ?Type albuterol sulfate 2.5 mg/3 mL 2.5 mg inhalation Q6H PRN soa 12/29/18 11/10/23 History (0.083 %) solution for nebulization aspirin 81 mg tablet,delayed 81 mg PO DAILY thinner #90 tabs 09/19/20 11/10/23 Rx release ergocalciferol (vitamin D2) 1,250 50,000 unit PO QWEEK Supplement 04/20/23 11/10/23 Rx mcg (50,000 unit) capsule #10 caps alendronate 10 mg tablet 10 mg PO DAILY #30 tabs 10/06/23 11/10/23 Rx fenofibrate 150 mg capsule 150 mg PO DAILY #30 caps 11/10/23 11/10/23 Rx fluticasone fur. 100 mcg-umeclid 1 inh inhalation DAILY COPD #60 ea 12/28/23 Rx 62.5 mcg-vilant 25 mcg inhalat.powder (Trelegy Ellipta) rosuvastatin 20 mg tablet See Rx Instructions .Route 01/17/24 Rx .COMPLEX #90 tabs clopidogrel 75 mg tablet See Rx Instructions .Route 02/01/24 Rx .COMPLEX #90 tabs metoprolol succinate 25 mg See Rx Instructions .Route 02/01/24 Rx tablet,extended release 24 hr .COMPLEX #90 tabs albuterol sulfate 90 mcg/actuation See Rx Instructions .Route 02/27/24 Rx aerosol inhaler .COMPLEX #8.5 grams losartan 50 mg tablet See Rx Instructions .Route 03/08/24 Rx .COMPLEX #45 tabs levothyroxine 25 mcg tablet See Rx Instructions .Route 07/17/24 Rx .COMPLEX #30 tabs New Prescriptions to Start Prescriptions: Allergies Allergy/AdvReac Type Severity Reaction Status Date / Time Sulfa (Sulfonamide Allergy Mild Anaphylaxis Verified 11/10/23 09:19 Antibiotics) Exam Data for Last 24 hours Vital signs and Labs for Last 24 Hours: Temp Pulse Resp BP Pulse Ox O2 Del Method O2 Flow Rate 98.4 F 83 18 195/91 H 94 L Nasal Cannula 2 10/19/24 23:54 10/20/24 02:30 10/20/24 02:30 10/20/24 02:30 10/20/24 02:30 10/20/24 02:30 10/20/24 02:30 Laboratory Results - last 24 hr 10/20/24 00:05: HCV Ab NATALIYA w/Rflx PCR Qn Reactive, HIV Ag/Ab Combo Qual Negative 10/20/24 00:10: VBG pH 7.37, VBG pCO2 47.6, VBG pO2 43.9 H, VBG HCO3 26.7, VBG Total CO2 28.1 H, VBG O2 Saturation 81.9 H, VBG Base Excess 1.3, VBG Lactic Acid 2.2 H 10/20/24 00:16: WBC 6.7, RBC 5.46 H, Hgb 14.3, Hct 44.1, MCV 80.8 L, MCH 26.2 L, MCHC 32.4, RDW 14.2, Plt Count 319, MPV 8.9, Neut % (Auto) 61.1, Lymph % (Auto) 28.1, [place] % (Auto) 9.6 H, Eos % (Auto) 0.3, Baso % (Auto) 0.6, Neut # (Auto) 4.1, Lymph # (Auto) 1.9, [place] # (Auto) 0.6, Eos # (Auto) 0.0, Baso # (Auto) 0.0, PT 12.7 H, INR 1.16 H, D-Dimer 3.24 H, Sodium 128 L, Potassium 4.8, Chloride 95 L, Carbon Dioxide 27, Anion Gap 10.8, BUN 17, Creatinine 0.60, Estimated Creat Clear 42, Estimated GFR 99, Est GFR ( Amer) 120, Glucose 132 H, Calcium 9.2, Total Bilirubin 0.7, AST 31, ALT 14, Alkaline Phosphatase 89, Troponin I 0.04 H, NT-Pro-B Natriuret Pep 28075 H, Total Protein 9.0 H, Albumin 4.1, Globulin 4.9 H, Albumin/Globulin Ratio 0.8 L 10/20/24 01:55: Urine Color Yellow, Urine Appearance Clear, Urine pH 6.0, Ur Specific [place] 1.010, Urine Protein 1+ A, Urine Glucose (UA) Negative, Urine Ketones Negative, Urine Blood Trace-i, Urine Nitrate Negative, Urine Bilirubin Negative, Urine Urobilinogen 1.0, Ur Leukocyte Esterase Negative I & O for Last 24 hours: Intake & Output 10/17/24 10/18/24 10/19/24 10/20/24 23:59 23:59 23:59 23:59 Weight 50.802 kg Constitutional Constitutional: no acute distress *Routine HEENT Exam Head: Present normocephalic Eye: Present EOMI and PERRL ENT: Present mucous membranes moist *Routine Neck Exam Neck: Present supple; Absent lymphadenopathy *Routine Respiratory Exam Respiratory: Present rales, respiratory distress, wheezes, crackles and distant breath sounds *Routine Cardiovascular Exam Cardiovascular: Present RRR *Routine Abdominal Exam Abdominal: Present soft and normoactive bowel sounds; Absent tenderness *Routine Rectal Exam Rectal:: deferred *Routine Genitalia Exam Genitalia:: deferred *Routine Extremities Exam Extremities: Absent cyanosis, clubbing or edema *Routine Skin Exam Skin: Present warm; Absent rash *Routine Neurological Exam Neurological: Present alert and oriented X3 Assessment and Plan *Assessment and plan (1) Productive cough: Status: Acute Category: Medical Code(s): R05.8 - Other specified cough (2) Lung mass: Status: Acute Category: Medical Code(s): R91.8 - Other nonspecific abnormal finding of lung field (3) Subclavian artery thrombosis: Status: Acute Category: Medical Code(s): I74.8 - Embolism and thrombosis of other arteries (4) Hyponatremia: Status: Acute Category: Medical Code(s): E87.1 - Hypo-osmolality and hyponatremia (5) Elevated brain natriuretic peptide (BNP) level: Status: Acute Category: Medical Code(s): R79.89 - Other specified abnormal findings of blood chemistry (6) Generalized anxiety disorder: Status: Acute Category: Medical Code(s): F41.1 - Generalized anxiety disorder (7) Asymptomatic hypertension: Status: Acute Category: Medical Code(s): I10 - Essential (primary) hypertension (8) Coronary artery disease: Status: Chronic Qualifiers: Coronary Disease-Associated Artery/Lesion type: [place] artery [place] vs. transplanted heart: [place] heart Associated angina: without angina Qualified Code(s): I25.10 - Atherosclerotic heart disease of [place] coronary artery without angina pectoris Category: Medical Code(s): I25.10 - Atherosclerotic heart disease of [place] coronary artery without angina pectoris (9) COPD (chronic obstructive pulmonary disease): Status: Acute Qualifiers: COPD type: unspecified COPD Qualified Code(s): J44.9 - Chronic obstructive pulmonary disease, unspecified Category: Medical Code(s): J44.9 - Chronic obstructive pulmonary disease, unspecified Plan Lung mass - Consult pulmonology for further evaluation of possible cancer versus infection Subclavian artery stenosis - Lovenox 1 mg/kg twice daily - Cardiology consult for eval of stent NSTEMI - Lovenox - Echo - Telemetry - Left heart cath - Cardiology consult Hypervolemia - Lasix 20 IV, monitor response and titrate as appropriate Hyponatremia - Monitor Hypertension - Resume metoprolol - Resume losartan Chronic medical conditions and home medications to be resumed following medicine reconciliation by pharmacy
[2024-10-20 03:14] LABS: Bacteria,Urine Trace /lpf; RBC,Urine Occasional #/hpf (0-3)
--- NOTE | 2024-10-20 03:14 | PC.NURSE ---
admitting provider at the bedside.
[2024-10-20 03:45] LABS: Troponin I 0.04 ng/ml (0.00-0.034)
--- NOTE | 2024-10-20 03:45 | PC.NURSE ---
Patient arrived to floor via stretcher from ED at 03:42.
--- NOTE | 2024-10-20 03:57 | PC.NURSE ---
New Admit. 2LNC for sob, RA baseline, satting in 90's. Daughter at bedside. ox4. Plan of care ongoing.
[2024-10-20 04:24] LABS: Reflex Lactic Add Lactic Reflex
[2024-10-20] MEDS: FUROSEMIDE 20 MG/2 ML VIAL IV (04:36)
--- NOTE | 2024-10-20 05:43 | PC.NURSE ---
pt's med rec couldn't be completed, pt couldn't recall all her meds or doses
[2024-10-20 07:23] LABS: Basophils % 0.2 % (0.1-2.0); Hematocrit 38.5 % (37.0-47.0); Immature Granulocytes # 0.03 10^3uL; Immature Granulocytes % 0.6 %; Lymphocytes # 0.7 K/mm3 (0.7-4.5); Lymphocytes % 14.5 % (10-50); Mean Corpuscular HGB Conc 30.9 g/dL (31.8-35.4); Mean Corpuscular Hemoglobin 25.4 pg (27.0-31.2); Mean Corpuscular Volume 82.3 fl (81-99); Monocytes # 0.1 K/mm3 (0.1-1.0); Monocytes % 1.4 % (1.7-9.3); Neutrophils # 4.3 K/mm3 (1.8-7.8); Neutrophils % 83.3 % (37.0-80.0); Nucleated Red Blood Cells # 0 10^3/uL; Nucleated Red Blood Cells % 0 %; Platelet Count 224 K/mm3 (142-424); Red Blood Count 4.68 M/mm3 (4.20-5.40); Red Cell Distribution Width 14.1 % (11.5-17.5); Red Cell Distribution Width-SD 42.4 fL; White Blood Count 5.1 K/mm3 (4.8-10.8)
[2024-10-20 07:28] LABS: Lactic Acid Follow Up (RFLX 1) 0.9 mmol/L (0.7-2.1)
[2024-10-20 08:27] LABS: Alanine Aminotransferase 8 U/L (12-78); Albumin Level 3.4 g/dl (3.5-5.0); Alkaline Phosphatase 65 U/L (38-126); Anion Gap 6.1 mEq/L (5-15); Aspartate Amino Transferase 25 U/L (14-36); Bilirubin,Total 0.5 mg/dl (0.2-1.3); Blood Urea Nitrogen 15 mg/dl (7-17); Calcium 8.5 mg/dl (8.4-10.2); Carbon Dioxide 28 mmol/L (22.0-30.0); Chloride 98 mmol/L (98-107); Cholesterol 92 mg/dl (140-200); Creatinine Clearance Estimated 40 mL/min (50-200); Estimated Glomerular Filt Rate 122 ml/min (>60); GFR (African American) 148 ML/MIN (>60); Globulin 3.5 g/dL (1.3-3.2); Glucose 138 mg/dl (74-100); HDL Cholesterol 31 mg/dl (40-60); Magnesium 1.9 mg/dl (1.6-2.3); Potassium 5.1 mmoL/L (3.5-5.1); Sodium 127 mmol/L (136-145); Total Protein,Serum 6.9 g/dl (6.3-8.2); Triglycerides 90 mg/dl (30-150); VLDL Cholesterol 18 mg/dL (0-40)
[2024-10-20 08:39] LABS: Troponin I 0.04 ng/ml (0.00-0.034)
[2024-10-20] MEDS: DOCUSATE SODIUM 100 MG CAPSULE PO ×2 (08:53→20:33)
[2024-10-20] MEDS: ASPIRIN EC 81MG TABLET 81 MG PO (08:53)
[2024-10-20] MEDS: CLOPIDOGREL 75MG TAB 75 MG PO (08:53)
[2024-10-20] MEDS: LEVOTHYROXINE 25MCG (0.025MG) TAB 25 MCG PO (08:53)
--- NOTE | 2024-10-20 09:17 | HMH.PHAINT1 ---
Pharmacy Intervention Comments: MEDICATION RECONCILIATION COMPLETE USING EXTERNAL PHARMACY FILL HISTORY AND LISA REPORT.
[2024-10-20 11:37] LABS: POC Glucose,Bedside 190 (70-110)
[2024-10-20] MEDS: GABAPENTIN 400MG CAPSULE 400 MG PO ×2 (12:37→20:33)
[2024-10-20] MEDS: METOPROLOL SUCCINATE XL 25MG TABLET 25 MG PO (12:40)
--- NOTE | 2024-10-20 13:10 | HMH.PTEV ---
Physical Therapy Evaluation Rehab PT IP Evaluation Start: 10/20/24 04:51 Freq: ONCE Status: Active Protocol: Document 10/20/24 12:58 GARCIATESSA (Rec: 10/20/24 13:10 CRISTINA [id number]) Subjective/History History History Pt is a 69 y/o female who presented to [facility] ED on 10/20/24 for progressive and persistent weakness over the last week. Per history & physical note, she has not been able to perform her ADLs at home as a result of her symptoms. She is also having significant shortness of breath which was very functionally limiting. She has been having a productive cough as well denying fevers chills or other infectious symptoms. Medical History: Restless sleeper, Snoring, Smoker, Palpitations, Tachycardia, HTN (hypertension), benign, HLD (hyperlipidemia), Carotid stenosis, Ligamentum flavum hypertrophy, Bulging of lumbar intervertebral disc, Facet hypertrophy of lumbar region, Anxiety Subjective Subjective Pt side-lying in bed upon arrival to room with oxygen doffed and reports she feels light-headed, agreeable to PT evaluation. Per nursing orders, 2LNC donned with increased oxygen saturations to 97% on 2LNC with report of improved light-headedness prior to performing physical assessment. Pt reports she lives alone in a 2 story home without PRASAD. Pt states her daughter does live nearby. She states she is typically independent with all ADLs and ambulation. Pt states she doesn't drive at baseline. Medical History: New diagnosis of No cancer in past 12 months? [facility] How much help from another person do you currently need... Turning from your None back to your side while in a flat bed without using bedrails? Moving from lying on A little back to sitting on the side of a flat bed without using bedrails? Moving to and from a A little bed to a chair ( including a wheelchair)? Standing up from a A little chair using your arms? (e.g., wheelchair, bedside chair) Walking in hospital A little room? Climbing 3-5 steps A lot with a railing? Mobility Score 18 Mobility Level [facility] Mobility 6 Walk 10 steps or more Mobility Calculator Rehab PT IP Eval Objective Appearance Patient Behavior Appropriate,Anxious,Confused Patient Orientation Place,Name,Birthday Difficulty following none instructions Speech Pattern Clear Ambulation Patient Able to Yes Ambulate Ambulation Observation IP General Gait Wide Based Gait Pattern Observation Ambulation Distance 5 (feet) Ambulation Assistive Rolling Walker Device Ambulation Ability Minimal x 1 (25% assist) Balance Ability to Arise Able, uses arms to help Sitting Balance Steady, safe Standing Balance Steady, wide stance Dynamic Sitting Fair Balance Ability Dynamic Standing Fair Balance Ability Transfers Bed Transfer Ability Minimal x 1 (25% assist) Sit to Stand Bed Minimal x 1 (25% assist) Transfer Ability Rehab PT IP prob,goals,plan Problems Date of Evaluation: 10/20/24 PT IP Problems Bed Mobility,Transfers,Gait,Balance,Self care,Safety Rehab Potential Rehab Potential Good Equipment Needs Assistive Devices Rolling / Wheeled Walker Plan PT Intervention Plan Bed Mobility,Transfers,Gait,Balance,Self care,Safety, Therapeutic Exercise Other Intervention 1-2x/day Plan PT Plan Frequency Daily Duration LOS Discharge Goals Bed Transfer Ability Contact Guard/Hand Hold Sit to Stand Chair Contact Guard/Hand Hold Transfer Ability Ambulation Assistive Rolling Walker Device Ambulation Distance 15 (feet) Discharge Plan PT Discharge Plan Pt will benefit from skilled therapy while in [facility] and is currently most appropriate for short-term rehab placement; however, could return home with family assist and home health therapy if she continues to improve medically and with overall mobility. Without skilled therapy pt is at an increased risk for falls, wounds, fractures and further functional decline. Eval Complexity Eval Charge Codes 97989 - Moderate Complexity PHYSICIAN CERTIFICATION: I certify the specified therapy services for Anisha Grier are required, authorized, and reviewed every 30 days.
[2024-10-20 13:43] LABS: Hemoglobin 11.9 g/dL (12.2-16.2)
[2024-10-20] MEDS: ENOXAPARIN 60MG/0.6ML SYRINGE 50 MG SUBCUT (14:34)
[2024-10-20] MEDS: IPRATROPIUM/ALBUTEROL 3 ML NEB IH (18:23)
[2024-10-20] MEDS: NICOTINE 21MG/24HR PATCH 21 MG TD (20:30)
[2024-10-20] MEDS: BUPRENORPHINE/NALOXONE 8MG/2MG ODT 1 EACH SL (20:33)
[2024-10-20] MEDS: PANTOPRAZOLE 40MG TABLET 40 MG PO (20:33)
[2024-10-20] MEDS: ATORVASTATIN 40MG TABLET 40 MG PO (20:33)
[2024-10-21] VITALS (8 sets, daily range): BP systolic 107–174; BP diastolic 54–78; PULSE 60–80; RESP 15–20; TEMP 36.4–36.8; O2SAT 93–98; BMI 18.4
[2024-10-21] MEDS: AZITHROMYCIN 500 MG in 0.9 % SODIUM CHLORIDE 250 ML 250 MG IV (02:58)
[2024-10-21] MEDS: ENOXAPARIN 60MG/0.6ML SYRINGE 50 MG SUBCUT ×2 (02:58→15:59)
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
[2024-10-21 05:26] LABS: POC Glucose,Bedside 175 (70-110)
[2024-10-21] MEDS: LEVOTHYROXINE 25MCG (0.025MG) TAB 25 MCG PO (06:06)
[2024-10-21] MEDS: IPRATROPIUM/ALBUTEROL 3 ML NEB IH ×3 (06:21→23:03)
[2024-10-21 07:01] LABS: INR 1.19 (0.9-1.1)
[2024-10-21] MEDS: BUPRENORPHINE/NALOXONE 8MG/2MG ODT 1 EACH SL ×2 (09:37→21:16)
[2024-10-21] MEDS: DOCUSATE SODIUM 100 MG CAPSULE PO ×2 (09:37→21:16)
[2024-10-21] MEDS: ASPIRIN EC 81MG TABLET 81 MG PO (09:38)
[2024-10-21] MEDS: METOPROLOL SUCCINATE XL 25MG TABLET 25 MG PO (09:39)
[2024-10-21] MEDS: CLOPIDOGREL 75MG TAB 75 MG PO (09:39)
[2024-10-21] MEDS: GABAPENTIN 400MG CAPSULE 400 MG PO ×3 (09:41→21:16)
[2024-10-21] MEDS: NICOTINE 21MG/24HR PATCH 21 MG TD (09:43)
[2024-10-21] MEDS: SODIUM CHLORIDE 3% 15ML NEB 3 ML IH (12:55)
[2024-10-21] MEDS: levoFLOXacin 750 MG TABLET PO (13:04)
[2024-10-21] MEDS: predniSONE 20MG TAB 40 MG PO (14:17)
--- NOTE | 2024-10-21 16:15 | EXP.PN ---
Subjective *Date: 10/21/24 *Time: 16:15 Exam Data for Last 24 hours Vital signs and Labs for Last 24 Hours: Temp Pulse Resp BP Pulse Ox O2 Del Method O2 Flow Rate 97.7 F 64 18 174/78 H 97 Nasal Cannula 2 10/21/24 12:00 10/21/24 12:58 10/21/24 12:58 10/21/24 12:00 10/21/24 12:58 10/21/24 12:58 10/21/24 12:58 FiO2 28 10/20/24 18:47 Laboratory Results - last 24 hr 10/20/24 06:11: POC Glucose 175 H 10/21/24 05:55: PT 13.0 H, INR 1.19 H I & O for Last 24 hours: Intake & Output 10/18/24 10/19/24 10/20/24 10/21/24 23:59 23:59 23:59 23:59 Intake Total 240 / 590 590 / 590 Output Total 675 / 675 1400 / 1400 Balance -435 / -85 -810 / -810 Weight 50.802 kg 48.353 kg 48.988 kg Microbiology Reports for the Last 24 Hours: Microbiology 10/21/24 Unknown Sputum - Expectorated Sputum Gram Stain - Final Constitutional Constitutional: no acute distress *Routine HEENT Exam Head: Present normocephalic Eye: Present EOMI and PERRL ENT: Present mucous membranes moist *Routine Neck Exam Neck: Present supple; Absent lymphadenopathy *Routine Respiratory Exam Respiratory: Present rhonchi; Absent CTA bilaterally *Routine Cardiovascular Exam Cardiovascular: Present RRR *Routine Abdominal Exam Abdominal: Present soft and normoactive bowel sounds; Absent tenderness *Routine Extremities Exam Extremities: Absent cyanosis, clubbing or edema *Routine Skin Exam Skin: Present warm; Absent rash *Routine Neurological Exam Neurological: Present alert and oriented X3 Assessment and Plan *Assessment and plan (1) Lung mass: Status: Acute Category: Medical Code(s): R91.8 - Other nonspecific abnormal finding of lung field Plan Anisha Grier is a 69-year-old female with a longstanding smoking history, COPD, CAD, PAD, SPENCER, hypertension, AAA, hypothyroidism who presents due to shortness of breath, cough, and generalized weakness. Admitted for further evaluation of left subclavian artery stenosis, lung mass, NSTEMI. #Right lung mass #Suspected malignancy #Mediastinal, hilar adenopathy ? Chronic longstanding smoker. Found to have growing 4 cm spiculated mass in the right upper lobe, with possible metastasis to the left lower lobe. ? Pulmonology consulted, pending further recommendations. ? N.p.o. at midnight for possible EBUS. #Suspected pneumonia #COPD exacerbation ? Diffuse rhonchi with white/yellow productive cough. ? DuoNebs every 6 hours, started prednisone 40 mg daily and levofloxacin. ? Follow-up sputum cultures. #Left subclavian artery stenosis ? CTA noted high-grade left subclavian artery stenosis. ? Cardiology consulted, pending further recommendations. ? Continue therapeutic Lovenox. Aspirin, statin. #NSTEMI ? Troponin 0.04, EKG without acute ischemic changes. ? Cardiology consulted, pending further recommendations. Aspirin, statin. #Hypertension ? Continue home losartan, metoprolol. Full code DVT prophylaxis: Therapeutic Lovenox as above
[2024-10-21 17:44] LABS: Adenovirus,PCR Not Detected (NotDetected); Bordetella Pertussis Not Detected (NotDetected); Chlamydophila Pneumoniae, PCR Not Detected (NotDetected); Coronavirus 19, PCR Not Detected (NotDetected); Coronavirus 229E Not Detected (NotDetected); Coronavirus NL63 Not Detected (NotDetected); Coronavirus OC43 Not Detected (NotDetected); Coronovirus HKU1,PCR Not Detected (NotDetected); Human Metapneumovirus Not Detected (NotDetected); Influenza A, PCR Not Detected (NotDetected); Influenza AH1, 2009 Not Detected (NotDetected); Influenza AH1, PCR Not Detected (NotDetected); Influenza AH3,PCR Not Detected (NotDetected); Influenza B, PCR Not Detected (NotDetected); Mycoplasma Pneumoniae, PCR Not Detected (NotDetected); Parainfluenza 1, PCR Not Detected (NotDetected); Parainfluenza 2, PCR Not Detected (NotDetected); Parainfluenza 3, PCR Not Detected (NotDetected); Parainfluenza 4, PCR Not Detected (NotDetected); Respiratory Syncytial Virus Not Detected (NotDetected); Rhinovirus/Enterovirus Not Detected (NotDetected)
--- OUTSIDE RECORDS SUMMARY | 2024-10-21 20:47 | XMS_ITS | Encounter Summary ---
Author Organization [employer] Address [address] [place] [address] Care Team Providers Care Salesperson New Cars Name Role Phone Unavailable Primary Care Provider Unavailabl e Encounter Details Date Type Department Care Team (Late st Contact Info) Description 07/02/2021 Transcribed Document [facility] Family Medicine [facility] [place] [address] ProviderMorteza MD [facility] [place], [place] [address] Social History Tobacco Use Types Packs/Day Years [...] - Historical Provider, - 07/02/2021 5:00 PM MALTER OPERATOR Chart Check - Review Order Profile Entered On: 07/02/2021 18:36 EST Performed On: 07/02/2021 17:00 EST by Darby Troncoso, RN Chart Check Powerplans Initiated/Discontinued as Appropriate : Not applicable All Active Orders Reviewed : Yes Darby Troncoso, RN - 07/02/2021 18:36 EST Electronically signed by Deepak [facility] Conversion Urgent Care Physician Assistant Cerner at 08/31/2022 9:56 PM CDT documented in this encounter Plan of Treatment Not on file documented as of this encounter Visit Diagnoses Not on filedocumented in this encounter
--- OUTSIDE RECORDS SUMMARY | 2024-10-21 20:48 | XMS_ITS | Encounter Summary ---
Author Organization [employer] Address [address] [place] [address] Care Team Providers Care Materials Intern Name Role Phone Unavailable Primary Care Provider Unavailabl e Encounter Details Date Type Department Care Team (Late st Contact Info) Description 07/02/2021 Transcribed Document [facility] Family Medicine [facility] [place] [address] ProviderMorteza MD [address] [place] [id number] Social History Tobacco Use Types Packs/Day Years [...] - Historical Provider, - 07/02/2021 2:06 PM INFORMATION SECURITY ARCHITECT Initial Discharge Planning Entered On: 07/02/2021 14:13 EST Performed On: 07/02/2021 14:06 EST by BENTLEY WHITE Rn-Director Of Sports Performance Initial Assessment I Previously Documented Living Environment [...] [place] 2nd Ident. Medical Decision Maker [phone] Secondary Number of People in Class : 4 2nd Ident. Medical Decision Maker Class : Adult Children Enter Doctors Name : Mode Meek Does Patient have PCP Listed? : Yes Medical Durable Power of Cold Header Operator Name : none Legal Guardian : No Is Guardianship Needed : No BENTLEY WHITE Rn-Director Of Sports Performance - 07/02/2021 14:06 EST Initial Assessment II Sensory and Motor Deficits : None Current Home Treatments and Equipment : Nebulizer BENTLEY WHITE Rn-Director Of Sports Performance - 07/02/2021 14:06 EST Discharge Needs I Anticipated Discharge Date : 07/03/2021 EST Anticipated Discharge To, CM : Home with family care Current Home Treatment/Equipment : Current Home Treatment/Equipment No qualifying data available. Post Acute/Home Treatments : Nebulizer Documentation Status Complete : Yes BENTLEY WHITE Rn-Director Of Sports Performance - 07/02/2021 14:06 EST Discharge Needs II Professional Skilled Services : Professional Skilled Services No qualifying data available. Needs Assistance with Transportation : No Discharge Options Discussed with Patient : Discharge transportation, DME Patient Discharge Goal : Home BENTLEY WHITE Rn-Director Of Sports Performance - 07/02/2021 14:06 EST Narrative Note Narrative [...] on Tuesday r/t work Daughter Sarah [place] [phone], no numbers or contact information for Jomar Richardson Pt's PLOF semi-independent, does not drive - dtr transports to appt and assist's pt w/bathing no hx of home health or short-term rehab DME=nebulizer PCP - Mode Meek - pt has appt on 07/08 DCP home - pt is able to stay with dtr if needed on d/c; continue to follow BENTLEY WHITE Rn-Director Of Sports Performance - 07/02/2021 14:06 EST documented in this encounter Plan of Treatment Not on file documented as of this encounter Visit Diagnoses Not on filedocumented in this encounter
--- OUTSIDE RECORDS SUMMARY | 2024-10-21 20:48 | XMS_ITS | Encounter Summary ---
Author Organization [employer] Address [address] [place] [address] Care Team Providers Care Vacuum Conditioner Operator Name Role Phone Unavailable Primary Care Provider Unavailabl e Encounter Details Date Type Department Care Team (Late st Contact Info) Description 07/03/2021 Transcribed Document [address] [id number] Stevan Watkins MD [address] [facility] [place] [address] Social History Tobacco Use Types Packs/Day Years [...] Oral, BID gabapentin 400 mg, Oral, TID [place] 7.5 mg-325 mg oral tablet 1 Tab, [...]
--- OUTSIDE RECORDS SUMMARY | 2024-10-21 20:48 | XMS_ITS | Encounter Summary ---
Author Organization [employer] Address [address] [place] [address] Care Team Providers Care Temperature Regulator Pyrometer Name Role Phone Unavailable Primary Care Provider Unavailabl e Encounter Details Date Type Department Care Team (Late st Contact Info) Description 07/02/2021 Transcribed Document [place] Family Medicine [facility] [place] [address] ProviderMorteza MD [facility] [place] [address] Social History Tobacco Use Types [...] - Historical ProviderMD - 07/02/2021 1:28 PM COLLAR SETTER OVERLOCK Nutrition Assessment Entered On: 07/03/2021 11:07 EST [...] 07/03/2021 10:59 EST Electronically signed by Deepak [facility] Conversion Associate Professor Of Anthropology Cerner at 08/31/2022 9:54 PM CDT documented in this encounter Plan of Treatment Not on file documented as of this encounter Visit Diagnoses Not on filedocumented in this encounter
--- OUTSIDE RECORDS SUMMARY | 2024-10-21 20:48 | XMS_ITS | Encounter Summary ---
Author Organization [employer] Address [address] [place] [address] Care Team Providers Care Minute Clerk Name Role Phone Unavailable Primary Care Provider Unavailabl e Encounter Details Date Type Department Care Team (Late st Contact Info) Description 07/03/2021 Transcribed Document [facility] [place] [address] [place] [address] ProviderMorteza MD [facility]ly [facility] [place] [address] Social History Tobacco Use Types Packs/Day Years [...] - Historical ProviderMD - 07/03/2021 10:09 AM AIR ANALYST Event Note Entered On: 07/03/2021 10:10 EST Performed On: 07/03/2021 10:09 EST by BENTLEY WHITE Rn-Alteration InspectorPlasma Processor Note Event Date/Time : 07/03/2021 10:00 EST Event Location : Other: RA sat @ rest 84% Description of Event : RA sat @ rest 84% BENTLEY WHITE Rn-Alteration Inspector - 07/03/2021 10:09 EST documented in this encounter Plan of Treatment Not on file documented as of this encounter Visit Diagnoses Not on filedocumented in this encounter
--- OUTSIDE RECORDS SUMMARY | 2024-10-21 20:48 | XMS_ITS | Encounter Summary ---
Author Organization [email or web address] Address [address] [place] [address] Care Team Providers Care Archaeology Professor Name Role Phone Unavailable Primary Care Provider Unavailabl e Encounter Details Date Type Department Care Team (Late st Contact Info) Description 07/03/2021 Transcribed Document [facility] [place] [facility] [place] [address] ProviderMorteza MD [address] [place] [id number] Social History Tobacco Use Types Packs/Day Years [...] - Historical ProviderMD - 07/03/2021 8:13 PM MEN'S GOLF COACH Nursing Discharge Summary Entered On: 07/03/2021 20:14 [...] 07/03/2021 20:13 EST Electronically signed by Deepak [facility] Conversion Cert Pharmacy Tech Cerner at 08/31/2022 9:52 PM CDT documented in this encounter Plan of Treatment Not on file documented as of this encounter Visit Diagnoses Not on filedocumented in this encounter
--- OUTSIDE RECORDS SUMMARY | 2024-10-21 20:48 | XMS_ITS | Clinical Summary ---
Author Organization Healthcare Address [address] [id number] Care Team Providers Care Slipman Name Role Phone Mode Meek MD Primary Care Provider [phone] Social History Tobacco Use Types Packs/Day Years [...] 2004 UKY-Zoster Vaccines (1 of 2) 2004 [id number]-[id number] Vaccine (2 - 20 24-25 season) 2024 [...] this topic Insurance [employer] MEDICARE Care Teams Slipman Relationship Specialty Start Date End Date Mode Meek MD [address] [place] [address] PCP - General 05/16/20
--- OUTSIDE RECORDS SUMMARY | 2024-10-21 20:48 | XMS_ITS ---
Author Organization Unknown Plan of Treatment Description Planned Activity Planned Timing - Telephone encounter - Patient Care team information Name Category Status Period Participants - - Proposed period not known -
--- OUTSIDE RECORDS SUMMARY | 2024-10-21 20:48 | XMS_ITS | Encounter Summary ---
Author Organization [employer] Address [address] [place] [address] Care Team Providers Care Senior Embedded Software Engineer Name Role Phone Unavailable Primary Care Provider Unavailabl e Encounter Details Date Type Department Care Team (Late st Contact Info) Description 07/03/2021 Transcribed Document [facility] [address] [place] [address] Stevan Watkins MD [address] [place] [address] Social History Tobacco Use Types Packs/Day Years [...] Signature: ___Yoon Friend RN CDS Phone #: __[phone] This is a permanent part of the Medical Record documented in this encounter Plan of Treatment Not on file documented as of this encounter Visit Diagnoses Not on filedocumented in this encounter
--- OUTSIDE RECORDS SUMMARY | 2024-10-21 20:48 | XMS_ITS | Encounter Summary ---
Author Organization [employer] Address [address] [place] [address] Care Team Providers Care Certified Pest Control Technician Name Role Phone Unavailable Primary Care Provider Unavailabl e Encounter Details Date Type Department Care Team (Late st Contact Info) Description 07/02/2021 Transcribed Document [facility] [place] [facility] [place] [address] ProviderMorteza MD [facility] [place] [address] Social History Tobacco Use Types [...] - Historical Provider, - 07/02/2021 6:36 AM SILVER SOLUTION MIXER Admission History, Adult Entered On: 07/02/2021 18:39 [...] No Support Person/Pt Rep Contact Information : [phone] daughter [place]a [place] Want Family/Rep/Phys Notified of [...] [place] 2nd Ident. Medical Decision Maker [phone] Secondary Number of People in Class : 4 2nd Ident. Medical Decision Maker Class : Adult Children Chief Complaint : to have aortic stent placed for aneurysm Information Obtained From : Patient Primary Language : Vietnamese Communication Barrier : None Transportation Planner Needed : Darby Herron RN - 07/02/2021 18:36 EST Fall Risk Scales ABCs Fall Injury Risk Identification : Bones, Coagulation, Surgery ABC Fall Injury Risk : Moderate to high injury risk [place] Hx Falls Immediate/Within 3 Months : No [place] Secondary Diagnosis : Yes [place] Use of Ambulatory Aid : Bed rest/Nurse assist [place] IV Therapy or IV Access : Yes [place] Gait/Transferring : Normal, bedrest, immobile [place] Mental Status : Overestimates/Forgets limitations [place] Fall Risk Score : 50 [place] Fall Scale Risk Level : 46 or > High Risk [place] Fall Interventions : Adequate lighting, Assistive devices [...] Tobacco Cessation Medication : Yes Implant/Device Type, Parts Control Clerk and Model : right leg stent Darby [...] Source : Chart Height Entry Format : [place] Height, Feet : 5 ft(Converted to: 152 cm, 60 Inch) Height, Inches : 5 Inch(Converted to: 0 ft 5 Inch, 12.70 cm) Clinical Height : 165.1 cm Weight Source : Standing scale Weight Entry Format : [place] Clinical Dosing Weight : 45.09 kg Weight, Pounds : 99.2 lb Body Surface Area (BSA) : 1.47 m2 Body Mass Index : 16.5 kg/m2 (<LLOW) [place] Body Weight : 57 kg Darby Troncoso [...] Darby Troncoso RN - 07/02/2021 18:36 EST [place] Suicide Severity Rating Scale (C-SSRS) CSSRS Past [...] Darby Troncoso RN - 07/02/2021 18:36 EST Electronically signed by Benjamin Sotelo Conversion Bottom Pounder Cement Shoes Cerner at 08/31/2022 9:44 PM CDT documented in this encounter Plan of Treatment Not on file documented as of this encounter Visit Diagnoses Not on filedocumented in this encounter
--- OUTSIDE RECORDS SUMMARY | 2024-10-21 20:48 | XMS_ITS | Encounter Summary ---
Author Organization [employer] Address [address] [place] [address] Care Team Providers Care Maintenance Machinist Name Role Phone Unavailable Primary Care Provider Unavailabl e Encounter Details Date Type Department Care Team (Late st Contact Info) Description 07/02/2021 Transcribed Document [facility] [place] [facility] [place] [address] ProviderMorteza MD [address] [place] [address] Social History Tobacco Use Types Packs/Day [...] - Historical ProviderMD - 07/02/2021 10:16 AM BLOOD AND PLASMA LABORATORY ASSISTANT [facility] Main OR PACU Summary Primary Physician: MIKA THIBODEAUX MD-SUR Finalized Date/Time: 07/02/21 12:47:26 Pt. Name: ANISHA GRIER/Sex: 1955 Female Med Rec #: [id number] Physician: MIKA THIBODEAUX MD-SUR Financial #: [id number] Pt. Type: I Room/Bed: [facility] Admit/Disch: 07/02/21 06:37:00 - Institution: [facility] Main OR PACU I Case Times Entry 1 In PACU I 07/02/21 11:15:00 Ready for PACU 07/02/21 12:15:00 Discharge Discharge from PACU 07/02/21 12:35:00 I Last Modified By: KandyNaina rand RN-PATIENT CARE BEDSIDE NON-EXEMPT 07/02/21 12:46:57 [facility] Main OR PACU Acuity Entry 1 Start Time 07/02/21 12:15:00 Stop Time 07/02/21 12:35:00 Acuity Level [facility] PACU Acuity I Last Modified By: Naina Gaitan RN-PATIENT CARE BEDSIDE NON-EXEMPT 07/02/21 12:47:24 Finalized By: Naina Gaitan RN-PATIENT CARE BEDSIDE NON-EXEMPT Document Signatures Signed By: Naina Gaitan RN-PATIENT CARE BEDSIDE NON-EXEMPT 07/02/21 12:47 Electronically signed by Deepak [facility] Conversion Breaker Machine Operator Cerner at 08/31/2022 9:55 PM CDT documented in this encounter Plan of Treatment Not on file documented as of this encounter Visit Diagnoses Not on filedocumented in this encounter
--- OUTSIDE RECORDS SUMMARY | 2024-10-21 20:48 | XMS_ITS | Referral Summary ---
Author Organization [employer] Address [address] [place] [address] Care Team Providers Care Parent Coach Name Role Phone Unavailable Primary Care Provider [...]
--- OUTSIDE RECORDS SUMMARY | 2024-10-21 20:48 | XMS_ITS | Data Portability ---
Author Organization [employer] [place] - MSE Address [address] [place] [address] Assessment No assessment recorded. Plan of Treatment Reminders Order Date Submit Date Provider Last Modified By Organization Details Last Modified Time Details Appointments None recorded. Lab lipid panel, serum 2024 025 [facility], [address] [place], [address], 5 08:12:45 CBC w/ auto diff 2024 025 [facility] [address] [place], [address], 5 08:12:44 CMP, serum or plasma [address] [facility]), [address] [place], [address], 5 08:12:45 TSH + free T4, serum 2024 025 [facility] [address] [place], [address], 5 08:12:44 HbA1c (hemoglobin A1c), blood 2024 025 [facility] [address] [place], [address], 5 08:12:46 cobalamin and folate panel, serum 2024 025 [facility]), [address] [place], [address], 5 08:12:46 vitamin D, 25-hydroxy, total, serum 2024 025 [facility]), [address] [place], [address], 5 08:12:47 noninvasive colorectal cancer DNA + occult blood screening, QL, stool 2024 025 [email or web address] (Cologuard Orders Only), [address], [place], [address], 5 08:18:57 lipid panel, serum 2023 024 [facility]), [address] [place], [address], 4 08:13:11 CBC w/ auto diff 2023 024 [facility]), [address] [place], [address], 4 08:13:10 CMP, serum or plasma 2023 024 [facility]), [address] [place], [address], 4 08:13:10 HbA1c (hemoglobin A1c), blood 2023 024 [facility]), [address] [place], [address], 4 08:13:12 vitamin B12 + folate, serum or blood 2023 024 [facility]), [address] [place], [address], 4 08:13:12 vitamin D, 25-hydroxy, total, serum 2023 024 GINO [facility] [address], [place], [address], 4 08:13:13 TSH + free T4, serum 2023 024 GINO [facility]), [address], [place], [address], 4 08:13:09 unlisted lab - toxassure flex 19, [id number] 2023 024 GINO [facility]), [address], [place], [address], 4 20:07:28 Referral None recorded. Procedures None recorded. Surgeries None recorded. Imaging LDCT, chest, for lung cancer screening - first avail. [address] ([facility]), [address], [place], [address], 5 09:13:15 Medication Orders losartan 50 mg tablet 2024 025 [facility], [address] [place] [address], [address], 5 20:15:21 gabapentin 800 mg tablet 2024 025 [facility], [facility] [place], [address], 5 14:15:29 Medrol (Perez) 4 mg tablets in a dose pack 2023 025 [facility], [address] [place] [address], [address], 5 13:14:38 albuterol sulfate HFA 90 mcg/actuati on aerosol inhaler 2023 024 [facility], [address] [place] [address], [address], 4 15:17:33 Trelegy Ellipta 100 mcg-62.5 mcg-25 mcg powder for inhalation 2023 [facility], [address] , [place], [address], 5 15:34:38 clopidogrel 75 mg tablet 2023 [facility], [address] , [place], [address], 4 15:32:48 losartan 50 mg tablet 2023 [facility], [address] , [place], [address], 4 15:32:49 gabapentin 800 mg tablet 2023 024 [facility], [address] [facility], [place], [address], 5 17:32:22 Patient TargetsNo targets recorded. Patient [...] devin consu ltati on, pleas e call [phone]. ===== ===== ===== ===== ===== ===== ===== ===== ===== ===== ===== ===== ===== === Not Available [facility] ([facility]) [address] [facility], [place], [address], 04/17/2024 20:07:27 11/26/04/17/2024 TOXAS SURE FLEX 19, UR pdf . Not Available [facility] ([facility]) [address] [place], [address], 04/17/2024 20:07:27 04/10/20 24 04/17/2024 TOXAS SURE FLEX 19, UR creatinine 69 mg/dL REFER ENCE RANGE : Ref Range >=20 Not Available [facility] ([facility]) [address] [facility], [place], [address], 04/17/2024 20:07:27 04/10/20 24 04/17/2024 TOXAS SURE FLEX 19, UR amphetamines ia Negati ve NG/mL cutoff :300 Not Available [facility] ([facility]) [address] [place], [address], 04/17/2024 20:07:27 04/10/20 24 04/17/2024 TOXAS SURE FLEX 19, UR benzodiazepi xiang Negati ve Not Available [facility] ([facility]) [address] [place], [address], 04/17/2024 20:07:27 04/10/20 24 04/17/2024 TOXAS SURE FLEX 19, UR diazepam Not Detect ed NG/mg _crea t Not Available [facility] ([facility]) [address] [place], [address], 04/17/2024 20:07:27 04/10/20 24 04/17/2024 TOXAS SURE FLEX 19, UR desmethyldia zepam Not Detect ed NG/mg _crea t Not Available [facility] ([facility]) [address] [place], [address], 04/17/2024 20:07:27 04/10/20 24 04/17/2024 TOXAS SURE FLEX 19, UR oxazepam Not Detect ed NG/mg _crea t Not Available [facility] ([facility]) [address] [place], [address], 04/17/2024 20:07:27 04/10/20 24 04/17/2024 TOXAS SURE [...] gladys Oxaze gladys: None Not Available [facility] ([facility]) [address] [place], [address], 04/17/2024 20:07:27 04/10/20 24 04/17/2024 TOXAS SURE FLEX 19, UR alprazolam Not Detect ed NG/mg _crea t Not Available [facility] ([facility]) [address] [place], [address], 04/17/2024 20:07:27 04/10/20 24 04/17/2024 TOXAS SURE FLEX 19, UR alpha-hydrox yalprazolam Not Detect ed NG/mg _crea t Not Available [facility] ([facility]) [address] [place], [address], 04/17/2024 20:07:27 04/10/20 24 04/17/2024 TOXAS SURE FLEX 19, UR desalkylflur azepam Not Detect ed NG/mg _crea t Not Available [facility] ([facility]) [address] [place], [address], 04/17/2024 20:07:27 04/10/20 24 04/17/2024 TOXAS SURE FLEX 19, UR lorazepam Not Detect ed NG/mg _crea t Not Available [facility] ([facility]) [address] [place], [address], 04/17/2024 20:07:27 04/10/20 24 04/17/2024 TOXAS SURE FLEX 19, UR alpha-hydrox ytriazolam Not Detect ed NG/mg _crea t Not Available [facility] ([facility]) [address] [place], [address], 04/17/2024 20:07:27 04/10/20 24 04/17/2024 TOXAS SURE FLEX 19, UR clonazepam Not Detect ed NG/mg _crea t Not Available [facility] ([facility]) [address] [place], [address], 04/17/2024 20:07:27 04/10/20 24 04/17/2024 TOXAS SURE FLEX 19, UR 7-aminoclona zepam Not Detect ed NG/mg _crea t Not Available [facility] ([facility]) [address] [place], [address], 04/17/2024 20:07:27 04/10/20 24 04/17/2024 TOXAS SURE FLEX 19, UR midazolam Not Detect ed NG/mg _crea t Not Available [facility] ([facility]) [address] [place], [address], 04/17/2024 20:07:27 04/10/20 24 04/17/2024 TOXAS SURE FLEX 19, UR alpha-hydrox ymidazolam Not Detect ed NG/mg _crea t Not Available [facility] ([facility]) [address] [place], [address], 04/17/2024 20:07:27 04/10/20 24 04/17/2024 TOXAS SURE FLEX 19, UR flunitrazepa m Not Detect ed NG/mg _crea t Not Available [facility] ([facility]) [address] [place], [address], 04/17/2024 20:07:27 04/10/20 24 04/17/2024 TOXAS SURE FLEX 19, UR desmethylflu nitrazepam Not Detect ed NG/mg _crea t Not Available [facility] ([facility]) [address] [place], [address], 04/17/2024 20:07:27 04/10/20 24 04/17/2024 TOXAS SURE FLEX 19, UR cocaine metabolite ia Negati ve NG/mL cutoff :150 Not Available [facility] ([facility]) [address] [place], [address], 04/17/2024 20:07:27 04/10/20 24 04/17/2024 TOXAS SURE FLEX 19, UR ethanol biomarkers ia Negati ve NG/mL cutoff :500 Not Available [facility] ([facility]) [address] [place], [address], 04/17/2024 20:07:27 04/10/20 24 04/17/2024 TOXAS SURE FLEX 19, UR cannabinoids ia Negati ve NG/mL cutoff :20 Not Available [facility] ([facility]) [address] [place], [address], 04/17/2024 20:07:27 04/10/20 24 04/17/2024 TOXAS SURE FLEX 19, UR 6-acetylmorp rhys ia Negati ve NG/mL cutoff :10 Not Available [facility] ([facility]) [address] [place], [address], 04/17/2024 20:07:27 04/10/20 24 04/17/2024 TOXAS SURE FLEX 19, UR opiate class ia Negati ve NG/mL cutoff :100 Not Available [facility] ([facility]) [address] [place], [address], 04/17/2024 20:07:27 04/10/20 24 04/17/2024 TOXAS SURE FLEX 19, UR oxycodone class ia Negati ve NG/mL cutoff :100 Not Available [facility] ([facility]) [address] [place], [address], 04/17/2024 20:07:27 04/10/20 24 04/17/2024 TOXAS SURE FLEX 19, UR methadone ia Negati ve NG/mL cutoff :100 Not Available [facility] ([facility]) [address] [place], [address], 04/17/2024 20:07:27 04/10/20 24 04/17/2024 TOXAS SURE FLEX 19, UR methadone mtb ia Negati ve NG/mL cutoff :100 Not Available [facility] ([facility]) [address] [place], [address], 04/17/2024 20:07:27 04/10/20 24 04/17/2024 TOXAS SURE FLEX 19, UR buprenorphin e ia COMMEN T NG/mL cutoff :5.0 Furth er testi ng indic ated Not Available [facility] ([facility]) [address] [place], [address], 04/17/2024 20:07:27 04/10/20 24 04/17/2024 TOXAS SURE FLEX 19, UR fentanyl ia Negati ve NG/mL cutoff :2.0 Not Available [facility] ([facility]) [address] [place], [address], 04/17/2024 20:07:27 04/10/20 24 04/17/2024 TOXAS SURE FLEX 19, UR tapentadol ia Negati ve NG/mL cutoff :200 Not Available [facility] ([facility]) [address] [place], [address], 04/17/2024 20:07:27 04/10/20 24 04/17/2024 TOXAS SURE FLEX 19, UR propoxyphene ia Negati ve NG/mL cutoff :300 Not Available [facility] ([facility]) [address] [place] [address], [address], 04/17/2024 20:07:27 04/10/20 24 04/17/2024 TOXAS SURE FLEX 19, UR tramadol ia Negati ve NG/mL cutoff :200 Not Available [facility] ([facility]) [address] [place] [address], [address], 04/17/2024 20:07:27 04/10/20 24 04/17/2024 TOXAS SURE FLEX 19, UR methylphenid ate ia Commen t NG/mL cutoff :100 Furth er testi ng indic ated Not Available [facility] ([facility]) [address] [place] [address], [address], 04/17/2024 20:07:27 04/10/20 24 04/17/2024 TOXAS SURE FLEX 19, UR barbiturates ia Negati ve NG/mL cutoff :200 Not Available [facility] ([facility]) [address] [place] [address], [address], 04/17/2024 20:07:27 04/10/20 24 04/17/2024 TOXAS SURE FLEX 19, UR phencyclidin e ia Negati ve NG/mL cutoff :25 Not Available [facility] ([facility]) [address] [place] [address], [address], 04/17/2024 20:07:27 04/10/20 24 04/17/2024 TOXAS SURE FLEX 19, UR gabapentin ia COMMEN T ug/mL cutoff :1.0 Furth er testi ng indic ated Not Available [facility] ([facility]) [address] [place] [address], [address], 04/17/2024 20:07:27 04/10/20 24 04/17/2024 TOXAS SURE FLEX 19, UR anticonvulsa nts +POSIT PANCHO+ Not Available [facility] ([facility]) [address] [place], [address], 04/17/2024 20:07:27 04/10/20 24 04/17/2024 TOXAS SURE FLEX 19, UR pregabalin Not Detect ed Not Available [facility] ([facility]) [address] [place], [address], 04/17/2024 20:07:27 04/10/20 24 04/17/2024 TOXAS SURE FLEX 19, UR carisoprodol ia Negati ve NG/mL cutoff :100 Not Available [facility] ([facility]) [address] [facility], [place], [address], 04/17/2024 20:07:27 04/10/20 24 04/17/2024 BUP/N ALOXO NE, MS, UR RFX buprenorphin e +POSIT PANCHO+ Not Available [facility] ([facility]) [address] [place], [address], 04/17/2024 20:07:28 04/10/20 24 04/17/2024 BUP/N ALOXO NE, MS, UR RFX buprenorphin e 261 NG/mg _crea t Not Available [facility] ([facility]) [address] [place], [address], 04/17/2024 20:07:28 04/10/20 24 04/17/2024 BUP/N ALOXO NE, MS, UR RFX norbuprenorp rhys >1449 NG/mg _crea t Not Available [facility] ([facility]) [address] [place], [address], 04/17/2024 20:07:28 04/10/20 24 04/17/2024 BUP/N ALOXO NE, MS, UR RFX N/B ratio >5.56 >=0.3 Not Available [facility] ([facility]) [address] [facility], [place], [address], 04/17/2024 20:07:28 04/10/20 24 04/17/2024 BUP/N ALOXO NE, MS, UR RFX opiate antagonist +POSIT PANCHO+ Not Available [facility] ([facility]) [address] [place], [address], 04/17/2024 20:07:28 04/10/20 24 04/17/2024 BUP/N ALOXO NE, MS, UR RFX naloxone 159 NG/mg _crea t Not Available [facility] ([facility]) [address] [place], [address], 04/17/2024 20:07:28 04/10/20 24 04/17/2024 GABAP ENTIN , MS, UR RFX anticonvulsa nts +POSIT PANCHO+ Not Available [facility] ([facility]) [address] [place], [address], 04/17/2024 20:07:29 04/10/20 24 04/17/2024 GABAP ENTIN , MS, UR RFX gabapentin PRESEN T Not Available [facility] ([facility]) [address] [place], [address], 04/17/2024 20:07:29 04/10/20 24 04/17/2024 METHY LPHEN IDATE , MS, UR RFX sympathomime tics Negati ve Not Available [facility] ([facility]) [address] [place], [address], 04/17/2024 20:07:30 04/10/20 24 04/17/2024 METHY LPHEN IDATE , MS, UR RFX methylphenid ate Not Detect ed Not Available [facility] ([facility]) [address] [place], [address], 04/17/2024 20:07:30 04/10/20 24 04/17/2024 METHY LPHEN IDATE , MS, UR RFX ritalinic acid Not Detect ed Not Available [facility] ([facility]) [address] [facility], [place], [address], 04/17/2024 20:07:30 04/11/20 24 04/12/2024 TSH+F REE T4 TSH 0.945 uIU/m L 0.450- 4.500 normal Not Available [facility] ([facility]) [address] [place], [address], 04/12/2024 08:13:09 04/11/20 24 04/12/2024 TSH+F REE T4 T4,free(dire ct) 1.35 NG/dL 0.82-1 .77 normal Not Available [facility] ([facility]) [address] [place], [address], 04/12/2024 08:13:09 04/11/20 24 04/12/2024 CBC WITH DIFFE RENTI AL/PL ATELE T WBC 4.9 x10e3 /uL 3.4-10 .8 normal Eff ectiv e Decem 2023 leatha walters [id number] 5 WBC will be made* * non-o rdera ble as a stand -sid e order code. Not Available [facility] ([facility]) [address] [place], [address], 04/12/2024 08:13:10 04/11/20 24 04/12/2024 CBC WITH DIFFE RENTI AL/PL ATELE T RBC 4.92 x10e6 /uL 3.77-5 .28 normal Not Available [facility] ([facility]) [address] [place], [address], 04/12/2024 08:13:10 04/11/20 24 04/12/2024 CBC WITH DIFFE RENTI AL/PL ATELE T hemoglobin 13.4 g/dL 11.1-1 5.9 normal Not Available [facility] ([facility]) [address] [facility], [place], [address], 04/12/2024 08:13:10 04/11/2004/12/2024 CBC WITH DIFFE RENTI AL/PL ATELE T hematocrit 41.0 % 34.0-4 6.6 normal Not Available [facility] ([facility]) [address] [facility], [place], [address], 04/12/2024 08:13:10 04/11/2004/12/2024 CBC WITH DIFFE RENTI AL/PL ATELE T MCV 83 fL 79-97 normal Not Available [facility] ([facility]) [address] [facility], [place], [address], 04/12/2024 08:13:10 04/11/20 24 04/12/2024 CBC WITH DIFFE RENTI AL/PL ATELE T MCH 27.2 pg 26.6-3 3.0 normal Not Available [facility] ([facility]) [address] [place], [address], 04/12/2024 08:13:10 04/11/20 24 04/12/2024 CBC WITH DIFFE RENTI AL/PL ATELE T MCHC 32.7 g/dL 31.5-3 5.7 normal Not Available [facility] ([facility]) [address] [place], [address], 04/12/2024 08:13:10 04/11/20 24 04/12/2024 CBC WITH DIFFE RENTI AL/PL ATELE T RDW 13.7 % 11.7-1 5.4 Not Available [facility] ([facility]) [address] [place], [address], 04/12/2024 08:13:10 04/11/20 24 04/12/2024 CBC WITH DIFFE RENTI AL/PL ATELE T platelets 226 x10e3 /uL 150-45 0 normal Not Available [facility] ([facility]) [address] [facility], [place], [address], 04/12/2024 08:13:10 04/11/20 24 04/12/2024 CBC WITH DIFFE RENTI AL/PL ATELE T neutrophils 73 % not estab. normal Not Available [facility] ([facility]) [address] [facility], [place], [address], 04/12/2024 08:13:10 04/11/20 24 04/12/2024 CBC WITH DIFFE RENTI AL/PL ATELE T lymphs 21 % not estab. normal Not Available [facility] ([facility]) [address] [facility], [place], [address], 04/12/2024 08:13:10 04/11/20 24 04/12/2024 CBC WITH DIFFE RENTI AL/PL ATELE T monocytes 5 % not estab. normal Not Available [facility] ([facility]) [address] [facility], [place], [address], 04/12/2024 08:13:10 04/11/20 24 04/12/2024 CBC WITH DIFFE RENTI AL/PL ATELE T eos 0 % not estab. normal Not Available [facility] ([facility]) [address] [facility], [place], [address], 04/12/2024 08:13:10 04/11/20 24 04/12/2024 CBC WITH DIFFE RENTI AL/PL ATELE T basos 1 % not estab. normal Not Available [facility] ([facility]) [address] [facility], [place], [address], 04/12/2024 08:13:10 04/11/20 24 04/12/2024 CBC WITH DIFFE RENTI AL/PL ATELE T immature cells CCO Not Available [facility] ([facility]) [address] [facility], [place], [address], 04/12/2024 08:13:10 04/11/20 24 04/12/2024 CBC WITH DIFFE RENTI AL/PL ATELE T neutrophils (absolute) 3.6 x10e3 /uL 1.4-7. 0 normal Not Available [facility] ([facility]) [address] [facility], [place], [address], 04/12/2024 08:13:10 04/11/20 24 04/12/2024 CBC WITH DIFFE RENTI AL/PL ATELE T lymphs (absolute) 1.0 x10e3 /uL 0.7-3. 1 normal Not Available [facility] ([facility]) [address] [place], [address], 04/12/2024 08:13:10 04/11/20 24 04/12/2024 CBC WITH DIFFE RENTI AL/PL ATELE T monocytes(ab solute) 0.3 x10e3 /uL 0.1-0. 9 normal Not Available [facility] ([facility]) [address] [facility], [place], [address], 04/12/2024 08:13:10 04/11/20 24 04/12/2024 CBC WITH DIFFE RENTI AL/PL ATELE T eos (absolute) 0.0 x10e3 /uL 0.0-0. 4 normal Not Available [facility] ([facility]) [address] [place], [address], 04/12/2024 08:13:10 04/11/20 24 04/12/2024 CBC WITH DIFFE RENTI AL/PL ATELE T baso (absolute) 0.0 x10e3 /uL 0.0-0. 2 normal Not Available [facility] ([facility]) [address] [place], [address], 04/12/2024 08:13:10 04/11/20 24 04/12/2024 CBC WITH DIFFE RENTI AL/PL ATELE T immature granulocytes 0 % not estab. Not Available [facility] ([facility]) [address] [facility], [place], [address], 04/12/2024 08:13:10 04/11/20 24 04/12/2024 CBC WITH DIFFE RENTI AL/PL ATELE T immature grans (abs) 0.0 x10e3 /uL 0.0-0. 1 Not Available [facility] ([facility]) [address] [facility], [place], [address], 04/12/2024 08:13:10 04/11/20 24 04/12/2024 CBC WITH DIFFE RENTI AL/PL ATELE T NRBC CCO Not Available [facility] ([facility]) [address] [facility], [place], [address], 04/12/2024 08:13:10 04/11/20 24 04/12/2024 CBC WITH DIFFE RENTI AL/PL ATELE T hematology comments: CCO Not Available [facility] ([facility]) [address] [facility], [place], [address], 04/12/2024 08:13:10 04/11/20 24 04/12/2024 COMP. METAB OLIC PANEL (14) glucose 125 mg/dL 70-99 above high normal Not Available [facility] ([facility]) [address] [facility], [place], [address], 04/12/2024 08:13:10 04/11/20 24 04/12/2024 COMP. METAB OLIC PANEL (14) BUN 21 mg/dL 8-27 normal Not Available [facility] ([facility]) [address] [facility], [place], [address], 04/12/2024 08:13:10 04/11/20 24 04/12/2024 COMP. METAB OLIC PANEL (14) creatinine 0.68 mg/dL 0.57-1 .00 normal Not Available [facility] ([facility]) [address] [facility], [place], [address], 04/12/2024 08:13:10 04/11/20 24 04/12/2024 COMP. METAB OLIC PANEL (14) eGFR 94 mL/mi n/1.7 3 >59 normal Not Available [facility] ([facility]) [address] [facility] [place], [address], 04/12/2024 08:13:10 04/11/20 24 04/12/2024 COMP. METAB OLIC PANEL (14) BUN/creatini ne ratio 31 12-28 above high normal Not Available [facility] ([facility]) [address] [facility], [place], [address], 04/12/2024 08:13:10 04/11/20 24 04/12/2024 COMP. METAB OLIC PANEL (14) sodium 125 mmol/ L 134-14 4 below low normal Not Available [facility] ([facility]) [address] [facility] [place], [address], 04/12/2024 08:13:10 04/11/20 24 04/12/2024 COMP. METAB OLIC PANEL (14) potassium 5.8 mmol/ L 3.5-5. 2 above high normal Not Available [facility] ([facility]) [address] [facility] [place], [address], 04/12/2024 08:13:10 04/11/20 24 04/12/2024 COMP. METAB OLIC PANEL (14) chloride 91 mmol/ L 96-106 below low normal Not Available [facility] ([facility]) [address] [facility] [place], [address], 04/12/2024 08:13:10 04/11/20 24 04/12/2024 COMP. METAB OLIC PANEL (14) carbon dioxide, total 19 mmol/ L 20-29 below low normal Not Available [facility] ([facility]) [address] [facility] [place], [address], 04/12/2024 08:13:10 04/11/20 24 04/12/2024 COMP. METAB OLIC PANEL (14) calcium 9.0 mg/dL 8.7-10 .3 normal Not Available [facility] ([facility]) [address] [facility], [place], [address], 04/12/2024 08:13:10 04/11/20 24 04/12/2024 COMP. METAB OLIC PANEL (14) protein, total 7.7 g/dL 6.0-8. 5 normal Not Available [facility] ([facility]) [address] [facility], [place], [address], 04/12/2024 08:13:10 04/11/20 24 04/12/2024 COMP. METAB OLIC PANEL (14) albumin 4.0 g/dL 3.9-4. 9 normal Not Available [facility] ([facility]) [address] [facility], [place], [address], 04/12/2024 08:13:10 04/11/20 24 04/12/2024 COMP. METAB OLIC PANEL (14) globulin, total 3.7 g/dL 1.5-4. 5 Not Available [facility] ([facility]) [address] [facility], [place], [address], 04/12/2024 08:13:10 04/11/20 24 04/12/2024 COMP. METAB OLIC PANEL (14) bilirubin, total 0.3 mg/dL 0.0-1. 2 normal Not Available [facility] ([facility]) [address] [facility], [place], [address], 04/12/2024 08:13:10 04/11/20 24 04/12/2024 COMP. METAB OLIC PANEL (14) alkaline phosphatase 106 IU/L 44-121 normal Not Available [facility] ([facility]) [address] [facility], [place], [address], 04/12/2024 08:13:10 04/11/20 24 04/12/2024 COMP. METAB OLIC PANEL (14) AST (SGOT) 18 IU/L 0-40 normal Not Available [facility] ([facility]) [address] [facility] [place], [address], 04/12/2024 08:13:10 04/11/20 24 04/12/2024 COMP. METAB OLIC PANEL (14) ALT (SGPT) 8 IU/L 0-32 normal Not Available [facility] ([facility]) [address] [facility] [place], [address], 04/12/2024 08:13:10 04/11/20 24 04/12/2024 LIPID PANEL cholesterol, total 116 mg/dL 100-19 9 normal Not Available [facility] ([facility]) [address] [facility] [place], [address], 04/12/2024 08:13:11 04/11/20 24 04/12/2024 LIPID PANEL triglyceride s 152 mg/dL 0-149 above high normal Not Available [facility] ([facility]) [address] [facility] [place], [address], 04/12/2024 08:13:11 04/11/20 24 04/12/2024 LIPID PANEL HDL cholesterol 34 mg/dL >39 below low normal Not Available [facility] ([facility]) [address] [facility] [place], [address], 04/12/2024 08:13:11 04/11/20 24 04/12/2024 LIPID PANEL VLDL cholesterol devin 26 mg/dL 5-40 Not Available [facility] ([facility]) [address] [facility] [place], [address], 04/12/2024 08:13:11 04/11/20 24 04/12/2024 LIPID PANEL LDL chol calc ([facility]) 56 mg/dL 0-99 Not Available [facility] ([facility]) [address] [facility] [place], [address], 04/12/2024 08:13:11 11/27/20 24 04/12/2024 LIPID PANEL LDL calc comment: CCO Not Available [facility] ([facility]) [address] [facility], [place], [address], 04/12/2024 08:13:11 04/11/20 24 04/12/2024 VITAM IN B12 AND FOLAT E vitamin B12 529 pg/mL 232-12 45 normal Not Available [facility] ([facility]) [address] [facility], [place], [address], 04/12/2024 08:13:12 04/11/20 24 04/12/2024 VITAM IN B12 AND FOLAT E folate (folic acid), serum 2.4 NG/mL >3.0 below low normal A serum folat e aida ntrat ion of less than 3.1 ng/mL is consi dered to repre sent clini devin defic iency . Not Available [facility] ([facility]) [address] [facility], [place], [address], 04/12/2024 08:13:12 04/11/20 24 04/12/2024 HEMOG LOBIN A1C hemoglobin A1C 6.0 % 4.8-5. 6 above high normal Predi abete s: 5.7 - 6.4 Diabe jovanni: >6.4 Glyce lexii contr ol for adult s with diabe jovanni: <7.0 Not Available [facility] ([facility]) [address] [facility], [place], [address], 04/12/2024 08:13:12 04/11/20 24 04/12/2024 VITAM IN [...] and D. An muñoz DC: The [facility] . 2. Holramirez k MF, Binkl ey [place], Bisch off-F errar i KEATING, et al. Evalu ation , treat ment, and preve ntion of vitam in D defic iency : an Endoc rine Socie ty clini devin pract ice guide line. JCEM. 2010; 96(7) :1911 -30. Not Available [facility] ([facility]) [address] [place], [address], 04/12/2024 08:13:13 07/12/1907/13/2024 TSH+F REE T4 TSH 1.640 uIU/m L 0.450- 4.500 normal Not Available [facility] ([facility]) [address] [place], [address], 07/13/2024 08:12:44 07/12/1907/13/2024 TSH+F REE T4 T4,free(dire ct) 1.40 NG/dL 0.82-1 .77 normal Not Available [facility] ([facility]) [address] [place], [address], 07/13/2024 08:12:44 07/12/1907/13/2024 CBC WITH DIFFE RENTI AL/PL ATELE T WBC 5.8 x10e3 /uL 3.4-10 .8 normal Not Available [facility] ([facility]) [address] [place], [address], 07/13/2024 08:12:44 07/12/19 25 07/13/2024 CBC WITH DIFFE RENTI AL/PL ATELE T RBC 5.18 x10e6 /uL 3.77-5 .28 normal Not Available [facility] ([facility]) [address] [facility], [place], [address], 07/13/2024 08:12:44 07/12/1907/13/2024 CBC WITH DIFFE RENTI AL/PL ATELE T hemoglobin 14.0 g/dL 11.1-1 5.9 normal Not Available [facility] ([facility]) [address] [facility], [place], [address], 07/13/2024 08:12:44 07/12/1907/13/2024 CBC WITH DIFFE RENTI AL/PL ATELE T hematocrit 43.8 % 34.0-4 6.6 normal Not Available [facility] ([facility]) [address] [facility], [place], [address], 07/13/2024 08:12:44 07/12/19 25 07/13/2024 CBC WITH DIFFE RENTI AL/PL ATELE T MCV 85 fL 79-97 normal Not Available [facility] ([facility]) [address] [place], [address], 07/13/2024 08:12:44 07/12/1907/13/2024 CBC WITH DIFFE RENTI AL/PL ATELE T MCH 27.0 pg 26.6-3 3.0 normal Not Available [facility] ([facility]) [address] [place], [address], 07/13/2024 08:12:44 07/12/1907/13/2024 CBC WITH DIFFE RENTI AL/PL ATELE T MCHC 32.0 g/dL 31.5-3 5.7 normal Not Available [facility] ([facility]) [address] [place], [address], 07/13/2024 08:12:44 07/12/19 25 07/13/2024 CBC WITH DIFFE RENTI AL/PL ATELE T RDW 13.6 % 11.7-1 5.4 Not Available [facility] ([facility]) [address] [facility], [place], [address], 07/13/2024 08:12:44 07/12/19 25 07/13/2024 CBC WITH DIFFE RENTI AL/PL ATELE T platelets 264 x10e3 /uL 150-45 0 normal Not Available [facility] ([facility]) [address] [facility], [place], [address], 07/13/2024 08:12:44 07/12/19 25 07/13/2024 CBC WITH DIFFE RENTI AL/PL ATELE T neutrophils 63 % not estab. normal Not Available [facility] ([facility]) [address] [facility], [place], [address], 07/13/2024 08:12:44 07/12/19 25 07/13/2024 CBC WITH DIFFE RENTI AL/PL ATELE T lymphs 26 % not estab. normal Not Available [facility] ([facility]) [address] [facility], [place], [address], 07/13/2024 08:12:44 07/12/19 25 07/13/2024 CBC WITH DIFFE RENTI AL/PL ATELE T monocytes 9 % not estab. normal Not Available [facility] ([facility]) [address] [facility], [place], [address], 07/13/2024 08:12:44 07/12/19 25 07/13/2024 CBC WITH DIFFE RENTI AL/PL ATELE T eos 1 % not estab. normal Not Available [facility] ([facility]) [address] [facility], [place], [address], 07/13/2024 08:12:44 07/12/19 25 07/13/2024 CBC WITH DIFFE RENTI AL/PL ATELE T basos 1 % not estab. normal Not Available [facility] ([facility]) [address] [facility], [place], [address], 07/13/2024 08:12:44 07/12/19 25 07/13/2024 CBC WITH DIFFE RENTI AL/PL ATELE T immature cells CCO Not Available [facility] ([facility]) [address] [place], [address], 07/13/2024 08:12:44 07/12/19 25 07/13/2024 CBC WITH DIFFE RENTI AL/PL ATELE T neutrophils (absolute) 3.6 x10e3 /uL 1.4-7. 0 normal Not Available [facility] ([facility]) [address] [place], [address], 07/13/2024 08:12:44 07/12/19 25 07/13/2024 CBC WITH DIFFE RENTI AL/PL ATELE T lymphs (absolute) 1.5 x10e3 /uL 0.7-3. 1 normal Not Available [facility] ([facility]) [address] [place], [address], 07/13/2024 08:12:44 07/12/19 25 07/13/2024 CBC WITH DIFFE RENTI AL/PL ATELE T monocytes(ab solute) 0.5 x10e3 /uL 0.1-0. 9 normal Not Available [facility] ([facility]) [address] [place], [address], 07/13/2024 08:12:44 07/12/19 25 07/13/2024 CBC WITH DIFFE RENTI AL/PL ATELE T eos (absolute) 0.1 x10e3 /uL 0.0-0. 4 normal Not Available [facility] ([facility]) [address] [place], [address], 07/13/2024 08:12:44 07/12/19 25 07/13/2024 CBC WITH DIFFE RENTI AL/PL ATELE T baso (absolute) 0.0 x10e3 /uL 0.0-0. 2 normal Not Available [facility] ([facility]) [address] [facility], [place], [address], 07/13/2024 08:12:44 07/12/19 25 07/13/2024 CBC WITH DIFFE RENTI AL/PL ATELE T immature granulocytes 0 % not estab. Not Available [facility] ([facility]) [address] [facility], [place], [address], 07/13/2024 08:12:44 07/12/19 25 07/13/2024 CBC WITH DIFFE RENTI AL/PL ATELE T immature grans (abs) 0.0 x10e3 /uL 0.0-0. 1 Not Available [facility] ([facility]) [address] [facility], [place], [address], 07/13/2024 08:12:44 07/12/19 25 07/13/2024 CBC WITH DIFFE RENTI AL/PL ATELE T NRBC CCO Not Available [facility] ([facility]) [address] [facility], [place], [address], 07/13/2024 08:12:44 07/12/19 25 07/13/2024 CBC WITH DIFFE RENTI AL/PL ATELE T hematology comments: CCO Not Available [facility] ([facility]) [address] [facility], [place], [address], 07/13/2024 08:12:44 07/12/19 25 07/13/2024 COMP. METAB OLIC PANEL (14) glucose 109 mg/dL 70-99 above high normal Not Available [facility] ([facility]) [address] [facility], [place], [address], 07/13/2024 08:12:45 07/12/19 25 07/13/2024 COMP. METAB OLIC PANEL (14) BUN 16 mg/dL 8-27 normal Not Available [facility] ([facility]) [address] [facility], [place], [address], 07/13/2024 08:12:45 07/12/19 25 07/13/2024 COMP. METAB OLIC PANEL (14) creatinine 0.85 mg/dL 0.57-1 .00 normal Not Available [facility] ([facility]) [address] [facility] [place], [address], 07/13/2024 08:12:45 07/12/19 25 07/13/2024 COMP. METAB OLIC PANEL (14) eGFR 74 mL/mi n/1.7 3 >59 normal Not Available [facility] ([facility]) [address] [facility] [place], [address], 07/13/2024 08:12:45 07/12/19 25 07/13/2024 COMP. METAB OLIC PANEL (14) BUN/creatini ne ratio 19 12-28 normal Not Available [facility] ([facility]) [address] [facility] [place], [address], 07/13/2024 08:12:45 07/12/19 25 07/13/2024 COMP. METAB OLIC PANEL (14) sodium 133 mmol/ L 134-14 4 below low normal Not Available [facility] ([facility]) [address] [facility] [place], [address], 07/13/2024 08:12:45 07/12/19 25 07/13/2024 COMP. METAB OLIC PANEL (14) potassium 5.1 mmol/ L 3.5-5. 2 normal Not Available [facility] ([facility]) [address] [facility] [place], [address], 07/13/2024 08:12:45 07/12/19 25 07/13/2024 COMP. METAB OLIC PANEL (14) chloride 98 mmol/ L 96-106 normal Not Available [facility] ([facility]) [address] [facility] [place], [address], 07/13/2024 08:12:45 07/12/19 25 07/13/2024 COMP. METAB OLIC PANEL (14) carbon dioxide, total 20 mmol/ L 20-29 normal Not Available [facility] ([facility]) [address] [facility] [place], [address], 07/13/2024 08:12:45 07/12/19 25 07/13/2024 COMP. METAB OLIC PANEL (14) calcium 8.9 mg/dL 8.7-10 .3 normal Not Available [facility] ([facility]) [address] [facility] [place], [address], 07/13/2024 08:12:45 07/12/19 25 07/13/2024 COMP. METAB OLIC PANEL (14) protein, total 7.7 g/dL 6.0-8. 5 normal Not Available [facility] ([facility]) [address] [facility] [place], [address], 07/13/2024 08:12:45 07/12/19 25 07/13/2024 COMP. METAB OLIC PANEL (14) albumin 3.9 g/dL 3.9-4. 9 normal Not Available [facility] ([facility]) [address] [facility] [place], [address], 07/13/2024 08:12:45 07/12/19 25 07/13/2024 COMP. METAB OLIC PANEL (14) globulin, total 3.8 g/dL 1.5-4. 5 Not Available [facility] ([facility]) [address] [place], [address], 07/13/2024 08:12:45 07/12/19 25 07/13/2024 COMP. METAB OLIC PANEL (14) bilirubin, total 0.2 mg/dL 0.0-1. 2 normal Not Available [facility] ([facility]) [address] [facility] [place], [address], 07/13/2024 08:12:45 07/12/19 25 07/13/2024 COMP. METAB OLIC PANEL (14) alkaline phosphatase 110 IU/L 44-121 normal Not Available [facility] ([facility]) [address] [facility] [place], [address], 07/13/2024 08:12:45 07/12/19 25 07/13/2024 COMP. METAB OLIC PANEL (14) AST (SGOT) 20 IU/L 0-40 normal Not Available [facility] ([facility]) [address] [place], [address], 07/13/2024 08:12:45 07/12/19 25 07/13/2024 COMP. METAB OLIC PANEL (14) ALT (SGPT) 8 IU/L 0-32 normal Not Available [facility] ([facility]) [address] [place], [address], 07/13/2024 08:12:45 07/12/19 25 07/13/2024 LIPID PANEL cholesterol, total 105 mg/dL 100-19 9 normal Not Available [facility] ([facility]) [address] [place], [address], 07/13/2024 08:12:45 07/12/19 25 07/13/2024 LIPID PANEL triglyceride s 131 mg/dL 0-149 normal Not Available [facility] ([facility]) [address] [place], [address], 07/13/2024 08:12:45 07/12/19 25 07/13/2024 LIPID PANEL HDL cholesterol 29 mg/dL >39 below low normal Not Available [facility] ([facility]) [address] [place], [address], 07/13/2024 08:12:45 07/12/19 25 07/13/2024 LIPID PANEL VLDL cholesterol devin 23 mg/dL 5-40 Not Available [facility] ([facility]) [address] [place], [address], 07/13/2024 08:12:45 07/12/19 25 07/13/2024 LIPID PANEL LDL chol calc ([facility]) 53 mg/dL 0-99 Not Available [facility] ([facility]) [address] [place], [address], 07/13/2024 08:12:45 07/12/19 25 07/13/2024 LIPID PANEL LDL calc comment: CCO Not Available [facility] ([facility]) [address] [place], [address], 07/13/2024 08:12:45 07/12/19 25 07/13/2024 VITAM IN B12 AND FOLAT E vitamin B12 538 pg/mL 232-12 45 normal Not Available [facility] ([facility]) [address] [facility], [place], [address], 07/13/2024 08:12:46 07/12/19 25 07/13/2024 VITAM IN B12 AND FOLAT E folate (folic acid), serum 2.3 NG/mL >3.0 below low normal A serum folat e aida ntrat ion of less than 3.1 ng/mL is consi dered to repre sent clini devin defic iency . Not Available [facility] ([facility]) [address] [facility], [place], [address], 07/13/2024 08:12:46 07/12/1907/13/2024 HEMOG LOBIN A1C hemoglobin A1C 6.0 % 4.8-5. 6 above high normal Predi abete s: 5.7 - 6.4 Diabe jovanni: >6.4 Glyce lexii contr ol for adult s with diabe jovanni: <7.0 Not Available [facility] ([facility]) [address] [place], [address], 07/13/2024 08:12:46 07/12/19 25 07/13/2024 VITAM IN [...] and D. An muñoz DC: The [facility] Press . 2. Tyra patel MF, Shawanda fernandez [place], Christianne off-F shalini i KEATING, et al. Evalu ation , treat ment, and preve ntion of vitam in D defic iency : an Endoc rine Socie ty clini devin pract ice guide line. JCEM. 2010; 96(7) :1911 -30. Not Available [facility] ([facility]) [address] [place], [address], 07/13/2024 08:12:46 08/21/19 25 08/21/2024 CBC WITH DIFFE RENTI AL/PL ATELE T WBC 8.4 x10e3 /uL 3.4-10 .8 normal Not Available [facility] ([facility]) [address] [place], [address], 08/21/2024 08:25:57 08/21/19 25 08/21/2024 CBC WITH DIFFE RENTI AL/PL ATELE T RBC 5.35 x10e6 /uL 3.77-5 .28 above high normal Not Available [facility] ([facility]) [address] [place], [address], 08/21/2024 08:25:57 08/21/19 25 08/21/2024 CBC WITH DIFFE RENTI AL/PL ATELE T hemoglobin 14.2 g/dL 11.1-1 5.9 normal Not Available [facility] ([facility]) [address] [facility] [place], [address], 08/21/2024 08:25:57 08/21/1908/21/2024 CBC WITH DIFFE RENTI AL/PL ATELE T hematocrit 45.2 % 34.0-4 6.6 normal Not Available [facility] ([facility]) [address] [facility], [place], [address], 08/21/2024 08:25:57 08/21/1908/21/2024 CBC WITH DIFFE RENTI AL/PL ATELE T MCV 85 fL 79-97 normal Not Available [facility] ([facility]) [address] [facility], [place], [address], 08/21/2024 08:25:57 08/21/19 25 08/21/2024 CBC WITH DIFFE RENTI AL/PL ATELE T MCH 26.5 pg 26.6-3 3.0 below low normal Not Available [facility] ([facility]) [address] [facility], [place], [address], 08/21/2024 08:25:57 08/21/1908/21/2024 CBC WITH DIFFE RENTI AL/PL ATELE T MCHC 31.4 g/dL 31.5-3 5.7 below low normal Not Available [facility] ([facility]) [address] [place], [address], 08/21/2024 08:25:57 08/21/1908/21/2024 CBC WITH DIFFE RENTI AL/PL ATELE T RDW 13.8 % 11.7-1 5.4 Not Available [facility] ([facility]) [address] [place], [address], 08/21/2024 08:25:57 08/21/19 25 08/21/2024 CBC WITH DIFFE RENTI AL/PL ATELE T platelets 274 x10e3 /uL 150-45 0 normal Not Available [facility] ([facility]) [address] [facility], [place], [address], 08/21/2024 08:25:57 08/21/19 25 08/21/2024 CBC WITH DIFFE RENTI AL/PL ATELE T neutrophils 62 % not estab. normal Not Available [facility] ([facility]) [address] [facility], [place], [address], 08/21/2024 08:25:57 08/21/19 25 08/21/2024 CBC WITH DIFFE RENTI AL/PL ATELE T lymphs 27 % not estab. normal Not Available [facility] ([facility]) [address] [facility], [place], [address], 08/21/2024 08:25:57 08/21/19 25 08/21/2024 CBC WITH DIFFE RENTI AL/PL ATELE T monocytes 8 % not estab. normal Not Available [facility] ([facility]) [address] [facility], [place], [address], 08/21/2024 08:25:57 08/21/19 25 08/21/2024 CBC WITH DIFFE RENTI AL/PL ATELE T eos 2 % not estab. normal Not Available [facility] ([facility]) [address] [facility], [place], [address], 08/21/2024 08:25:57 08/21/19 25 08/21/2024 CBC WITH DIFFE RENTI AL/PL ATELE T basos 1 % not estab. normal Not Available [facility] ([facility]) [address] [facility], [place], [address], 08/21/2024 08:25:57 08/21/19 25 08/21/2024 CBC WITH DIFFE RENTI AL/PL ATELE T immature cells CCO Not Available [facility] ([facility]) [address] [facility], [place], [address], 08/21/2024 08:25:57 08/21/19 25 08/21/2024 CBC WITH DIFFE RENTI AL/PL ATELE T neutrophils (absolute) 5.2 x10e3 /uL 1.4-7. 0 normal Not Available [facility] ([facility]) [address] [place], [address], 08/21/2024 08:25:57 08/21/19 25 08/21/2024 CBC WITH DIFFE RENTI AL/PL ATELE T lymphs (absolute) 2.2 x10e3 /uL 0.7-3. 1 normal Not Available [facility] ([facility]) [address] [place], [address], 08/21/2024 08:25:57 08/21/19 25 08/21/2024 CBC WITH DIFFE RENTI AL/PL ATELE T monocytes(ab solute) 0.6 x10e3 /uL 0.1-0. 9 normal Not Available [facility] ([facility]) [address] [place], [address], 08/21/2024 08:25:57 08/21/19 25 08/21/2024 CBC WITH DIFFE RENTI AL/PL ATELE T eos (absolute) 0.2 x10e3 /uL 0.0-0. 4 normal Not Available [facility] ([facility]) [address] [place], [address], 08/21/2024 08:25:57 08/21/19 25 08/21/2024 CBC WITH DIFFE RENTI AL/PL ATELE T baso (absolute) 0.1 x10e3 /uL 0.0-0. 2 normal Not Available [facility] ([facility]) [address] [place], [address], 08/21/2024 08:25:57 08/21/19 25 08/21/2024 CBC WITH DIFFE RENTI AL/PL ATELE T immature granulocytes 0 % not estab. Not Available [facility] ([facility]) [address] [place], [address], 08/21/2024 08:25:57 08/21/19 25 08/21/2024 CBC WITH DIFFE RENTI AL/PL ATELE T immature grans (abs) 0.0 x10e3 /uL 0.0-0. 1 Not Available [facility] ([facility]) [address] [facility], [place], [address], 08/21/2024 08:25:57 08/21/19 25 08/21/2024 CBC WITH DIFFE RENTI AL/PL ATELE T NRBC CCO Not Available [facility] ([facility]) [address] [facility], [place], [address], 08/21/2024 08:25:57 08/21/19 25 08/21/2024 CBC WITH DIFFE RENTI AL/PL ATELE T hematology comments: CCO Not Available [facility] ([facility]) [address] [facility], [place], [address], 08/21/2024 08:25:57 08/21/19 25 08/21/2024 COMP. METAB OLIC PANEL (14) glucose 118 mg/dL 70-99 above high normal Not Available [facility] ([facility]) [address] [facility], [place], [address], 08/21/2024 08:25:58 08/21/19 25 08/21/2024 COMP. METAB OLIC PANEL (14) BUN 15 mg/dL 8-27 normal Not Available [facility] ([facility]) [address] [facility], [place], [address], 08/21/2024 08:25:58 08/21/19 25 08/21/2024 COMP. METAB OLIC PANEL (14) creatinine 0.78 mg/dL 0.57-1 .00 normal Not Available [facility] ([facility]) [address] [facility], [place], [address], 08/21/2024 08:25:58 08/21/19 25 08/21/2024 COMP. METAB OLIC PANEL (14) eGFR 82 mL/mi n/1.7 3 >59 normal Not Available [facility] ([facility]) [address] [place], [address], 08/21/2024 08:25:58 08/21/19 25 08/21/2024 COMP. METAB OLIC PANEL (14) BUN/creatini ne ratio 19 12-28 normal Not Available [facility] ([facility]) [address] [place], [address], 08/21/2024 08:25:58 08/21/19 25 08/21/2024 COMP. METAB OLIC PANEL (14) sodium 135 mmol/ L 134-14 4 normal Not Available [facility] ([facility]) [address] [facility], [place], [address], 08/21/2024 08:25:58 08/21/19 25 08/21/2024 COMP. METAB OLIC PANEL (14) potassium 4.6 mmol/ L 3.5-5. 2 normal Not Available [facility] ([facility]) [address] [place], [address], 08/21/2024 08:25:58 08/21/19 25 08/21/2024 COMP. METAB OLIC PANEL (14) chloride 97 mmol/ L 96-106 normal Not Available [facility] ([facility]) [address] [place], [address], 08/21/2024 08:25:58 08/21/19 25 08/21/2024 COMP. METAB OLIC PANEL (14) carbon dioxide, total 21 mmol/ L 20-29 normal Not Available [facility] ([facility]) [address] [place], [address], 08/21/2024 08:25:58 08/21/19 25 08/21/2024 COMP. METAB OLIC PANEL (14) calcium 10.0 mg/dL 8.7-10 .3 normal Not Available [facility] ([facility]) [address] [facility] [place], [address], 08/21/2024 08:25:58 08/21/19 25 08/21/2024 COMP. METAB OLIC PANEL (14) protein, total 7.5 g/dL 6.0-8. 5 normal Not Available [facility] ([facility]) [address] [facility] [place], [address], 08/21/2024 08:25:58 08/21/19 25 08/21/2024 COMP. METAB OLIC PANEL (14) albumin 3.9 g/dL 3.9-4. 9 normal Not Available [facility] ([facility]) [address] [facility] [place], [address], 08/21/2024 08:25:58 08/21/19 25 08/21/2024 COMP. METAB OLIC PANEL (14) globulin, total 3.6 g/dL 1.5-4. 5 Not Available [facility] ([facility]) [address] [facility] [place], [address], 08/21/2024 08:25:58 08/21/19 25 08/21/2024 COMP. METAB OLIC PANEL (14) bilirubin, total <0.2 mg/dL 0.0-1. 2 Not Available [facility] ([facility]) [address] [facility] [place], [address], 08/21/2024 08:25:58 08/21/19 25 08/21/2024 COMP. METAB OLIC PANEL (14) alkaline phosphatase 101 IU/L 44-121 normal Not Available [facility] ([facility]) [address] [facility] [place], [address], 08/21/2024 08:25:58 08/21/19 25 08/21/2024 COMP. METAB OLIC PANEL (14) AST (SGOT) 18 IU/L 0-40 normal Not Available [facility] ([facility]) [address] [facility], [place], [address], 08/21/2024 08:25:58 08/21/19 25 08/21/2024 COMP. METAB OLIC PANEL (14) ALT (SGPT) 7 IU/L 0-32 normal Not Available [facility] ([facility]) [address] [facility], [place], [address], 08/21/2024 08:25:58 08/21/19 25 08/21/2024 VITAM IN B12 AND FOLAT E vitamin B12 483 pg/mL 232-12 45 normal Not Available [facility] ([facility]) [address] [facility], [place], [address], 08/21/2024 08:25:59 08/21/19 25 08/21/2024 VITAM IN B12 AND FOLAT E folate (folic acid), serum >20.0 NG/mL >3.0 A serum folat e aida ntrat ion of less than 3.1 ng/mL is consi dered to repre sent clini devin defic iency . Not Available [facility] ([facility]) [address] [facility], [place], [address], 08/21/2024 08:25:59 04/16/20 24 01/04/2024 MAMMO , scree bill, digit al, bilat eral No observ ation record ed. [address], [place], [address], 07/17/2024 12:38:43 10/21/19 25 10/20/2024 imagi ng/di agnos tic resul t No observ ation record ed. [facility] [address], [place], [address], 10/20/2024 02:31:02 10/21/19 25 10/20/2024 imagi ng/di agnos tic resul t No observ ation record ed. [facility] [address], [place], [address], 10/20/2024 02:39:56 10/21/19 25 10/20/2024 imagi ng/di agnos tic resul t No observ ation record ed. [facility] [address], [place], [address], 10/20/2024 02:40:48 10/21/19 25 10/20/2024 imagi ng/di agnos tic resul t No observ ation record ed. [facility] [address], [place], [address], 10/20/2024 02:56:04 10/21/19 25 10/20/2024 imagi ng/di agnos tic resul t No observ ation record ed. [facility] [address], [place], [address], 10/20/2024 02:58:34 10/21/19 25 10/20/2024 imagi ng/di agnos tic resul t No observ ation record ed. [facility] [address], [place], [address], 10/20/2024 03:03:20 10/21/19 25 10/19/2024 imagi ng/di agnos tic resul t No observ ation record ed. [facility] [address], [place], [address], 10/20/2024 03:52:07 10/21/19 25 10/20/2024 imagi ng/di agnos tic resul t No observ ation record ed. [facility] [address], [place], [address], 10/20/2024 03:53:01 Result Notes None recorded. Procedures Surgical History Date Name Laterality Status Provider Name and Address Organization Details Recorded Time 01/01/202 4 Most Recent Mammogram completed [employer] 04/10/2024 14:41:12 Imaging Results None recorded. Procedure Notes None recorded. Medical Equipment None Reported. Allergies Allergen ID Allergen Name Allergen Category Reaction Reaction Severity Criticality Documentation Date Start Date Code Code System Note Provider Name and Address Organization Details Recorded Time 13310 Substance with sulfonami de structure and antibacte rial mechanism of action (substanc e) medicatio n itching rash Not available Not available Not available 04/10/2024 67304 8003 SNOMED [employer] [employer] 14:16:46 Medications Name Sig Start Date Stop [...] active Not Available Not Available Not Available Trelegy Ellipta 100 mcg-62.5 mcg-25 mcg powder [...] Updated DateTime 5 165.1 cm 19.3 kg/m2 95831.7 1 g 112 /min 90 % 90 % 196 mm[Hg] 120 mm[Hg] [facility] [employer] [place] 5 13:12:27 Date Recorded Body height Body mass index (BMI) Body weight Heart rate Oxygen saturation Oxygen saturation in Arterial blood by Pulse oximetry Systolic blood pressure Diastolic blood pressure Systolic blood pressure Diastolic blood pressure Provider Name and Address Organization Details Last Updated DateTime 4 165.1 cm 19.8 kg/m2 11322.1 9 g 114 /min 94 % 94 % 171 mm[Hg] 139 mm[Hg] 150 mm[Hg] 70 mm[Hg] [facility] [employer] 4 15:52:19 Social History Question Answer Notes LastModified by Organizat ion Details LastModified Time Tobacco Smoking Status Current Every Day Smoker [facility] [employer] 04/10/2024 14:16:48 Do You Have An Advance [...] Information not available 04/10/2024 What Type Of Stamp Maker Do You Use? None Information not available [...] Do You Have A Medical Power Of Practical Nursing Teacher? No Information not available 04/10/2024 What Was [...] SNOMED-CT Code Diagnosis ICD10 Code Diagnosis Note [id number] Radha Cesar [place] [id number] 04/10/2024 13:43:50 04/10/2024 16:36:15 Neuropathy 002426824 G62.9 Hypothyroidism 93278724 E03.9 Hyperlipidemia 30651656 E78.5 Fatigue 12971743 R53.83 Vitamin D deficiency 347 46238 E55.9 Vitamin B deficiency 479 81928 E53.9 Hyperglycemia 83139332 R 73.9 Chronic ob structive pulmonary disease 04054073 J44.9 Essential hypertension 32723011 I10 Acute exac erbation of chronic obstructive pulmonary disease 975237958 J44.1 Nicotine dependence 5629 4008 F17.200 Body mass index less than 20 259256990 Z68.1 [id number] Radha Cesar [place] [id number] 07/12/2024 12:33:51 07/12/2024 14:06:23 Screening for malignant neoplasm of colon 704383903 Z12.11 Essential hypertension 31241567 I10 Fatigue 83851612 R53.83 Vitamin D deficiency 347 27301 E55.9 Vitamin B deficiency 479 68212 E53.9 Hyperglycemia 28831414 R 73.9 Hyperlipidemia 69149109 E78.5 Neuropathy 755286926 G62 .9 Screening for malignant neoplasm of respiratory tract 590120929 Z12.2 Hyponatremia 47314298 E8 7.1 Hyperkalemia 04663299 E8 7.5 Body mass index less than 20 934469512 Z68.1 Health Concerns Section Related Observation LastModified by Organization Detai ls LastModified Time None Recorded Concern Status LastModified by Organization Details LastModified Time None Recorded Advance Directives Directive N: Payers Insurance Date Sequence Insurance Name Policy Number Policy Magaña Covered Member ID Magaña Member ID Guarantor Name 10/16/2024 1 [employer] - DUAL ELIGIBLE (MEDICARE REPLACEMENT/AD VANTAGE - HMO) Anisha Grier [id number] Anisha Grier 10/18/2024 [place] MARIANO [employer] [facility] [id number] Anisha Grier [id number] Anisha Grier 07/19/2024 1 [place] MED[place] (MEDICARE REPLACEMENT HMO) [id number] Anisha Grier [id number] Anisha Grier 04/10/2024 1 *SELF PAY* [...] over but doesnt have a ride to [facility]. i told her about our transportation services, [...] she has appt with lung doc in [facility] in [place]. Radha Cesar, ARCHITECTURAL TECHNOLOGIST [address] [facility], [place], [address], [employer] 04/10/2024 16:35:26 07/12/2024 text/html 69 year [...] appt with vision and transport today. Radha Arsenio, ARCHITECTURAL TECHNOLOGIST [address] [facility], [place], [address], [employer] 07/12/2024 16:21:54 OBGyn Episode No OBEpisode recorded.
--- OUTSIDE RECORDS SUMMARY | 2024-10-21 20:48 | XMS_ITS | Encounter Summary ---
Author Organization [employer] Address [address] [place] [address] Care Team Providers Care Commercial Center Manager Name Role Phone Unavailable Primary Care Provider Unavailabl e Encounter Details Date Type Department Care Team (Late st Contact Info) Description 06/29/2021 Transcribed Document [facility] Family Medicine [facility] [place] [address] ProviderMorteza MD [facility] [place] [address] Social History Tobacco Use Types [...] - Historical ProviderMD - 06/29/2021 1:26 PM 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 Authorization Entered On: 06/29/2021 13:26 EST Performed On: 06/29/2021 13:26 EST by CRISTIAN ALVAREZ Ground Instructor Advanced Primary Insurance Authorization Authorization and Policy Numbers : Insurance 1 Health Plan: [employer] CHOICE PPO Policy Number: [id number] Authorization Number: Insurance Primary Name : Jeancarlos Ryan [id number] Authorization Status-Primary : Notification only Auth/Referral Contact Name-Primary : Romaine Richy Authorization Number-Primary : [id number] Authorized Service Begin Date-Primary : 07/02/2021 EST Authorization Comments-Primary : per ETHAN [employer] Choice approved INPT auth# [id number] Historical Authorization Comments-Primary : No Authorization Comments Found CRISTIAN ALVAREZ, Ground Instructor Advanced - 06/29/2021 13:26 EST documented in this encounter Plan of Treatment Not on file documented as of this encounter Visit Diagnoses Not on filedocumented in this encounter
--- OUTSIDE RECORDS SUMMARY | 2024-10-21 20:48 | XMS_ITS | Encounter Summary ---
Author Organization [employer] Address [address] [place] [address] Care Team Providers Care Cashier Checker Name Role Phone Unavailable Primary Care Provider Unavailabl e Encounter Details Date Type Department Care Team (Late st Contact Info) Description 07/03/2021 Transcribed Document [facility] [address] [place] [address] Stevan Watkins MD [address] [facility] [place] [address] Social History Tobacco Use Types Packs/Day Years Used Date Smoking Tobacco: Never Assessed Comments Unknown Sex and Gender Information Value Date Recorded Sex Assigned at Female 11/10/2021 7:49 PM CDT Legal Sex Female 7:49 PM CDT Gender Identity Female 11/10/2021 7:49 PM CDT Sexual Orientation Not on file documented as of this encounter Miscellaneous Notes * Cerner Conversion Note - Stevan Wtakins MD - 07/03/2021 3:21 PM EST CLINICAL [...] Signature: __Yoon Friend RN CDS Phone #: __[phone] Moderate Malnutrition (in acute illness) Energy Intake: [...] loss; moderate- severe fluid accumulation; measurably reduced senior civil engineer strength Moderate Malnutrition (in chronic illness) Energy [...] mass loss; severe fluid accumulation; measurably reduced senior civil engineer strength This is a permanent part of the Medical Record documented in this encounter Plan of Treatment Not on file documented as of this encounter Visit Diagnoses Not on filedocumented in this encounter
--- OUTSIDE RECORDS SUMMARY | 2024-10-21 20:48 | XMS_ITS | Encounter Summary ---
Author Organization [employer] Address [address] [place] [address] Care Team Providers Care Installer Technician Name Role Phone Unavailable Primary Care Provider Unavailabl e Encounter Details Date Type Department Care Team (Late st Contact Info) Description 07/03/2021 Transcribed Document [facility] [address] [place] [address] Stevan Watkins MD [address] [place] [id number] Social History Tobacco Use Types Packs/Day Years [...] She states that pain is controlled with [facility] as needed. Intake & Output Intake & [...]
--- OUTSIDE RECORDS SUMMARY | 2024-10-21 20:48 | XMS_ITS | Encounter Summary ---
Author Organization [employer] Address [address] [place] [address] Care Team Providers Care Ornamenter Name Role Phone Unavailable Primary Care Provider Unavailabl e Encounter Details Date Type Department Care Team (Late st Contact Info) Description 07/02/2021 Transcribed Document [facility] Family Medicine [facility] [place] [address] ProviderMorteza MD [address] [place] [address] Social History Tobacco Use Types Packs/Day [...] - Historical ProviderMD - 07/02/2021 10:30 AM CUSTOMER SUPPORT ASSISTANT [facility] Main OR Preop Summary Primary Physician: MIKA THIBODEAUX MD-SUR Finalized Date/Time: 07/02/21 09:52:28 Pt. Name: ANISHA GRIER/Sex: 1955 Female Med Rec #: [id number] Physician: MIKA THIBODEAUX MD-SUR Financial #: [id number] Pt. Type: I Room/Bed: ASA/4 Admit/Disch: 07/02/21 06:37:00 - Institution: [facility] PreOp Case Times Entry 1 In Preop 07/02/21 08:25:00 Ready for Holding n/a Room Patient Ready for 07/02/21 09:45:00 Surgery Patient Out of Preop 07/02/21 09:51:00 Patient Out of n/a Holding Room Last Modified By: Bryan Eldridge Rn 07/02/21 09:52:26 [facility] PreOp Case Times Audit 07/02/21 09:52:26 Shake Sawyer: [id number] Modifier: [id number] <+> 1 Patient Out of Preop <+> 1 Patient Ready for Surgery Finalized By: Bryan Eldridge Rn Document Signatures Signed By: Bryan Eldridge Rn 07/02/21 09:52 Electronically signed by Deepak [facility] Conversion Nurse Staff [facility] Cerner at 08/31/2022 9:38 PM CDT documented in this encounter Plan of Treatment Not on file documented as of this encounter Visit Diagnoses Not on filedocumented in this encounter
--- OUTSIDE RECORDS SUMMARY | 2024-10-21 20:48 | XMS_ITS | Encounter Summary ---
Author Organization [employer] Address [address] [place] [address] Care Team Providers Care Bread Dough Mixer Name Role Phone Unavailable Primary Care Provider Unavailabl e Encounter Details Date Type Department Care Team (Late st Contact Info) Description 07/02/2021 Transcribed Document [facility] Family [place] [facility] [address] ProviderMorteza MD [address] [place] [address] Social History Tobacco Use Types Packs/Day [...] - Historical ProviderMD - 07/02/2021 11:03 AM CERTIFIED WELLNESS PROGRAM COORDINATOR Evaluation, Occupational Therapy Entered On: 07/03/2021 11:21 [...] Agreeable. Pt [place] with RN [place] [facility] Patient's Response to Treatment : 02 at [...] DENISSE HOOD OTR/Belén - 07/03/2021 11:16 EST Electronically signed by Deepak [facility] Conversion Social Insurance Adviser Cerner at 08/31/2022 9:54 PM CDT documented in this encounter Plan of Treatment Not on file documented as of this encounter Visit Diagnoses Not on filedocumented in this encounter
--- OUTSIDE RECORDS SUMMARY | 2024-10-21 20:48 | XMS_ITS | Encounter Summary ---
Author Organization [employer] Address [address] [place] [address] Care Team Providers Care Greeting Card Editor Name Role Phone Unavailable Primary Care Provider Unavailabl e Encounter Details Date Type Department Care Team (Late st Contact Info) Description 07/02/2021 Transcribed Document [facility] Family Medicine [address] [place] [address] ProviderMorteza MD [facility] [address] Social History Tobacco Use Types Packs/Day Years [...] - Historical ProviderMD - 07/02/2021 11:33 AM ASSISTANT MEDIA PLANNER Pain Assessment Entered On: 07/03/2021 5:09 EST [...]
--- OUTSIDE RECORDS SUMMARY | 2024-10-21 20:48 | XMS_ITS | Encounter Summary ---
Author Organization [employer] Address [address] [place] [address] Care Team Providers Care Division Commander Name Role Phone Unavailable Primary Care Provider Unavailabl e Encounter Details Date Type Department Care Team (Late st Contact Info) Description 07/03/2021 Transcribed Document [facility] Family Medicine [facility] [place] [address] ProviderMorteza MD [address] [place] [id number] Social History Tobacco Use Types Packs/Day Years [...] - Historical ProviderMD - 07/03/2021 10:28 AM WEB WORKER Final Discharge Planning Entered On: 07/03/2021 10:29 EST Performed On: 07/03/2021 10:28 EST by BENTLEY WHITE Rn-Picker / Packer Final Discharge Planning Discharge Arrangements : Patient [...] f/u appt w/PCP already made BENTLEY WHITE, Rn-Picker / Packer - 07/03/2021 10:28 EST Electronically signed by Deepak [facility] Conversion Special Education Aide Cerner at 08/31/2022 9:43 PM CDT documented in this encounter Plan of Treatment Not on file documented as of this encounter Visit Diagnoses Not on filedocumented in this encounter
--- OUTSIDE RECORDS SUMMARY | 2024-10-21 20:48 | XMS_ITS | Encounter Summary ---
Author Organization [employer] Address [address] [place] [address] Care Team Providers Care Weapons Officer Naval Activity Name Role Phone Unavailable Primary Care Provider Unavailabl e Encounter Details Date Type Department Care Team (Late st Contact Info) Description 07/02/2021 Transcribed Document [facility] Family Medicine [facility] [place] [place] [address] ProviderMorteza MD [address] [place] [address] Social History Tobacco Use Types Packs/Day [...] - Historical Provider, - 07/02/2021 11:03 AM CUTTER HOT KNIFE Evaluation, Physical Therapy Entered On: 07/03/2021 11:34 [...] her breathing. 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 [...] PT Eval Low Complexity : 1 TARIK SHEPARD, PT - 07/03/2021 11:22 EST documented in this encounter Plan of Treatment Not on file documented as of this encounter Visit Diagnoses Not on filedocumented in this encounter
--- OUTSIDE RECORDS SUMMARY | 2024-10-21 20:48 | XMS_ITS | Clinical Summary ---
Author Organization [employer] Address [address] [place] [address] Care Team Providers Care Stockroom Keeper Name Role Phone Unavailable Primary Care Provider [...]
--- OUTSIDE RECORDS SUMMARY | 2024-10-21 20:48 | XMS_ITS | Encounter Summary ---
Author Organization [employer] Address [address] [place] [address] Care Team Providers Care Melt Helper Name Role Phone Unavailable Primary Care Provider Unavailabl e Encounter Details Date Type Department Care Team (Late st Contact Info) Description 06/29/2021 Transcribed Document [facility] [place] [address] ProviderMorteza MD [address] [place] [id number] Social History Tobacco Use Types Packs/Day Years [...] - Historical ProviderMD - 06/29/2021 10:22 AM SUPERVISOR DRY PASTE Spiritual Care Assessment Entered On: 07/02/2021 9:27 EST Performed On: 07/02/2021 9:03 EST by EUGENE ROONEY General Information Referred by : Patient Referral Reason Comment : PreSurgery visit Ministry Provided to : Patient, Family/Significant other EUGENE ROONEY - 07/02/2021 9:26 EST Interventions Emotional Support : Empathic/Engaged listening, Family/Significant other supported, Feelings expressed Spiritual and Oriental Orthodox : Prayer shared, Spiritual/Oriental Orthodox support provided Change, Adjustment and Loss : Relationships/Community/Support system discussed EUGENE ROONEY - 07/02/2021 9:26 EST Outcomes Affect/Behavior Changed : Comforted Appreciation Expressed : Yes Thoughts, Feelings and Emotions Exp. : Yes Supportive Relationships Described : Daughter at bedside EUGENE ROONEY 07/02/2021 9:26 EST Electronically signed by Benjamin Sotelo Conversion Preventive Medicine Officer Cerner at 08/31/2022 9:44 PM CDT documented in this encounter Plan of Treatment Not on file documented as of this encounter Visit Diagnoses Not on filedocumented in this encounter
--- OUTSIDE RECORDS SUMMARY | 2024-10-21 20:48 | XMS_ITS | Encounter Summary ---
Author Organization [employer] Address [address] [place] [address] Care Team Providers Care Stock Turner Name Role Phone Unavailable Primary Care Provider Unavailabl e Encounter Details Date Type Department Care Team (Late st Contact Info) Description 07/03/2021 Transcribed Document [facility] [place] [address] [place] [address] ProviderMorteza MD [facility] [place] [address] Social History Tobacco Use Types Packs/Day Years [...] - Historical ProviderMD - 07/03/2021 5:14 PM LEAD MANUFACTURING ENGINEERING TECH Stroke/Warfarin Instructions Entered On: 07/03/2021 17:14 EST [...]
--- OUTSIDE RECORDS SUMMARY | 2024-10-21 20:48 | XMS_ITS | Encounter Summary ---
Author Organization [email or web address] Address [address] [place] [address] Care Team Providers Care Smt Operator Name Role Phone Unavailable Primary Care Provider Unavailabl e Encounter Details Date Type Department Care Team (Late st Contact Info) Description 07/03/2021 Transcribed Document [facility] [place] [facility] [place] [address] ProviderMorteza MD [address] [place] [address] Social History Tobacco Use Types Packs/Day Years Used Date Smoking Tobacco: Never Assessed Comments Unknown Sex and Gender Information Value Date Recorded Sex Assigned at Female 11/10/2021 7:49 PM CDT Legal Sex Female 7:49 PM CDT Gender Identity Female 11/10/2021 7:49 PM CDT Sexual Orientation Not on file documented as of this encounter Miscellaneous Notes * Cerner Conversion Note - Morteza ProviderMD - 07/03/2021 5:15 PM DRY ROLLER [facility] JOSUE Fajardo [id number] ANISHA GRIER :1955 Visit Time:07/02/2021 Your Visit [...] Follow-Up Appointments Follow Up with ALBERT LIMON (QUEENIE[facility] When In 6 days 07/08/2021 EST Comments Appointment has been made - patient aware of time Where: [place] [address] [place] [address]- Follow Up with Follow up with primary care provider When Within 2 to 3 days Comments Follow up with primary care provider regarding blood pressure medications Where: Medications What How Much When Instructions Next Dose acetaminophen-hydrocodone (Flushing 7.5 mg-325 mg oral tablet) 1 Tablet(s) [...] provider. This is important. Medicines ??? Take msoo-sge-ggxqisn and prescription medicines only as told by [...] Reviewed: 01/10/2019 Elsevier Patient Education ?? 2020 [employer] Home Oxygen Use, Adult When a [...] care provider or a person from your emergency medical technician/driver company will show you how to use [...] it and its top with a disinfectant carbonating stone cleaner. ? Air-dry it. ? Make sure [...] aerosol sprays. ? Rubbing alcohol. ? Hand pcmh specialist. ??? When you go to a restaurant [...] not move around. Follow instructions from your emergency medical technician/driver company about how to safely secure your [...] documents from your health care provider and emergency medical technician/driver company before you travel. General safety tips ??? If you use an oxygen cylinder, make sure it is in a stand or secured to an object that will not move (fixed object). ??? If you use liquid oxygen, make sure its container is kept upright at all times. ??? If you use an oxygen concentrator: ? Tell your [employer] company. Make sure you are given priority [...] tubing. Where to find more information ??? [place] [employer]: www.lung.org/oxygen Contact a health care [...] care provider or a person from your emergency medical technician/driver company will show you how to use [...] provider. Document Revised: 07/03/2020 Document Reviewed: 04/29/2020 ElseJiff Patient Education ?? 2020 [employer] Steps to Quit Smoking Smoking tobacco [...] a prescription, and some you can buy tjso-tfw-bkoymxl. Some medicines may contain a drug called [...] encourage you. ??? Call a phone quitline (3-550-MDQS-NOW), reach out to support groups, or work [...] provider. Document Revised: 01/25/2020 Document Reviewed: 07/21/2019 [employer] Patient Education ?? 2020 [employer] Abdominal Aortic Aneurysm Endograft Repair, Care [...] these instructions at home: Medicines ??? Take ajuc-bpx-uyiqtud and prescription medicines only as told by [...] and water are not available, use hand pcmh specialist. ? Change your dressing as told by [...] provider. Document Revised: 04/17/2020 Document Reviewed: 04/17/2020 [employer] Patient Education ?? 2020 [employer]. Emergency Awareness and Preventative Care STROKE is [...] Assistance with quitting is available by contacting 0-634-LYZY-NOW. This is a free resource providing counseling, [...] range between ( 0.0 and 7.0 ) [place] #: 0.95 K/uL -- Normal range between ( 0.16 and 1.00 ) [place] #: 0.30 x10(3)/uL -- Normal range between ( 0.00 and 0.80 ) [place] %: 10.5 % -- Normal range between [...] was given the opportunity to ask questions. Patient/Provider Network Mgr Name: Patient/Provider Network Mgr Signature: Relationship to Patient: Clinician/Hospital Provider Network Mgr Signature: Date: Electronically signed by Deepak [facility] Holden Medina at 08/31/2022 9:44 PM CDT documented in this encounter Plan of Treatment Not on file documented as of this encounter Visit Diagnoses Not on filedocumented in this encounter
--- OUTSIDE RECORDS SUMMARY | 2024-10-21 20:48 | XMS_ITS | Encounter Summary ---
Author Organization [employer] Address [address] [place] [address] Care Team Providers Care Ukrainian Folk Arts Instructor Name Role Phone Unavailable Primary Care Provider Unavailabl e Encounter Details Date Type Department Care Team (Late st Contact Info) Description 06/29/2021 Transcribed Document [facility] Family Medicine [facility] [place] [address] ProviderMorteza MD [address] [place] [address] Social History Tobacco Use Types Packs/Day [...] - Historical ProviderMD - 06/29/2021 10:10 AM SECURITY AND COMPLIANCE PROJECT MANAGER PAT Adult Entered On: 06/29/2021 10:22 [...] Source : Chart Height Entry Format : Angelina Height, Feet : 5 ft(Converted to: 152 cm, 60 Inch) Height, Inches : 5 Inch(Converted to: 0 ft 5 Inch, 12.70 cm) Clinical Height : 165.1 cm Weight Source : Standing scale Weight Entry Format : Angelina Clinical Dosing Weight : 45.09 kg Weight, Pounds : 99.2 lb Body Surface Area (BSA) : 1.47 m2 Body Mass Index : 16.5 kg/m2 (<LLOW) [place] Body Weight : 57 kg STALIN LOMAS RN - 06/30/2021 9:35 EST Health Histories Smoking Status : 10 or more cigarettes (1/2 pack or more)/day in last 30 days Smokeless Tobacco Status : Never Desires Tobacco Cessation Medication : No Reason for No Tobacco Cessation Medication : Refuses FDA approved medications Implant/Device Type, [employer] Machines Teacher and Model : right leg stent BENTLEY [...] EST ADL Index Score : 12 BENTLEY ABURTO RN - 06/29/2021 10:10 EST Advance Directive Patient has Advance Directive *Q : No, patient refuses Advance Directive information BENTLEY ABURTO RN - 06/29/2021 10:10 EST Spiritual/Cultural Needs Any Spiritual/Cultural Needs or Requests : Yes Spiritual/Cultural Needs Comment : prayer on DOS 07/02/2021 Spiritual/Cultural Needs Comment : prayer on DOS 07/02/2021 BENTLEY ABURTO RN - 06/29/2021 10:10 EST [place] Suicide Severity Rating Scale (C-SSRS) CSSRS Past [...] Iram Support Person/Pt Rep Contact Information : [phone] daughter [place] Want Family/Rep/Phys Notified of Admit : No Emergency Contact #1 : [place] Emergency Contact #1 cell Emergency Contact #1 Relationship : daughter Emergency Contact #2 : - Emergency Contact #2 Phone Number : - Emergency Contact #2 Relationship : - Chief Complaint : to have aortic stent placed for aneurysm Information Obtained From : Patient Primary Language : Malawian Communication Barrier : None Financial Aid Advisor Needed : No BENTLEY ABURTO RN - [...]
--- OUTSIDE RECORDS SUMMARY | 2024-10-21 20:48 | XMS_ITS | Encounter Summary ---
Author Organization [employer] Address [address] [place] [address] Care Team Providers Care Spinner Open End Name Role Phone Unavailable Primary Care Provider Unavailabl e Encounter Details Date Type Department Care Team (Late st Contact Info) Description 07/03/2021 Transcribed Document [facility] Family Medicine [facility] [place] [address] ProviderMorteza MD [address] [place] [address] Social History Tobacco Use Types Packs/Day [...] - Historical ProviderMD - 07/03/2021 8:52 AM SENIOR ENGINEERING TECH UM Authorization Entered On: 07/03/2021 9:02 EST Performed On: 07/03/2021 8:52 EST by ROLANDO TEJADA, AZAEL-Touch Up Painter HandRoute Driver Insurance Authorization Authorization and Policy Numbers : Insurance 1 Health Plan: [employer] CHO[employer] PPO Policy Number: [id number] Authorization Number: [id number] Insurance Primary Name : Jeancarlos Ryan [id number] Authorization Status-Primary : Notification only Auth/Referral Contact Name-Primary : Romaine Lockhart Authorization Number-Primary : [id number] Authorized Service Begin Date-Primary : 07/02/2021 EST Authorization Comments-Primary : initial clinical faxed via availity. auth# in availity. Historical Authorization Comments-Primary : Comment 1: per STAR [employer] Choice approved INPT auth# [id number] (CRISTIAN ALVAREZ, Ingot Car Operator 06/29/2021 13:26) ROLANDO TEJADA RN-Touch Up Painter Hand - 07/03/2021 8:52 EST Secondary Insurance Authorization Authorization and Policy Numbers : Insurance 1 Health Plan: [employer] CHOICE PPO Policy Number: [id number] Authorization Number: [id number] Historical Authorization Comments-Secondary : No Authorization Comments Found ROLANDO TEJADA RN-Touch Up Painter Hand - 07/03/2021 8:52 EST Electronically signed by [facility] Conversion Estate Manager Cerner at 08/31/2022 9:38 PM CDT documented in this encounter Plan of Treatment Not on file documented as of this encounter Visit Diagnoses Not on filedocumented in this encounter
--- OUTSIDE RECORDS SUMMARY | 2024-10-21 20:48 | XMS_ITS | Encounter Summary ---
Author Organization [employer] Address [address] [place] [address] Care Team Providers Care Cooker Tender Name Role Phone Unavailable Primary Care Provider Unavailabl e Encounter Details Date Type Department Care Team (Late st Contact Info) Description 07/02/2021 Transcribed Document [facility] Family Medicine [facility] [place] [address] ProviderMorteza MD [address] [place] [address] Social History Tobacco Use Types Packs/Day [...] - Historical ProviderMD - 07/02/2021 10:16 AM COST ENGINEER [facility] Main OR IntraOp Summary Primary Physician: MIKA THIBODEAUX MD-SUR Finalized Date/Time: 07/03/21 09:03:09 Pt. Name: RACHEL GRIER/Sex: 1955 Female Med Rec #: [id number] Physician: MIKA THIBODEAUX MD-SUR Financial #: [id number] Pt. Type: I Room/Bed: [facility] Admit/Disch: 07/02/21 06:37:00 - Institution: [facility] IntraOp Case Attendance Entry 1 Entry 2 Entry 3 Case Attendee MIKA THIBODEAUX MD-SUR BARRETT, LAURIE, MD-BIRD DAILEY APRN, HASHER OPERATOR Role Performed Surgeon/Proceduralist, Anesthesiologist of HASHER OPERATOR/Nurse Skin Fitter First Record Time In 07/02/21 09:53:00 07/02/21 [...] A, Sadaf Kim RN Role Performed Student Stunt Woman, First Stunt Woman, Second Time In 07/02/21 09:53:00 07/02/21 09:53:00 [...] Case Attendee Dianna Ly CAMPBELL, JANET, Cardiovascular NURSE INTERN Advertising Copy Writer Role Performed Advertising Copy Writer Advertising Copy Writer Time In 07/02/21 09:53:00 07/02/21 09:53:00 Time Out 07/02/21 11:17:00 07/02/21 11:17:00 Procedure Aortic Stent Placement Aortic Stent Placement Endovascular Endovascular Other Attendee Superficial Wound Closed By: Last Modified By: Kiki Mcallister RN Napier, Elizabeth A, RN 07/02/21 11:17:08 07/02/21 11:17:08 [facility] IntraOp Case Attendance Audit 07/02/21 11:17:08 Warehouse Laborer: EANAPIER Modifier: EANAPIER 1 <+> Time Out [...] Procedure Aortic Stent Placement Endovascular 07/02/21 10:29:31 Warehouse Laborer: EANAPIER Modifier: EANAPIER <+> 1 Procedure 2 <*> Procedure Aortic Stent Placement Endovascular 3 <*> Procedure Aortic Stent Placement Endovascular 4 <*> Procedure Aortic Stent Placement Endovascular 5 <*> Procedure Aortic Stent Placement Endovascular 6 <*> Procedure Aortic Stent Placement Endovascular 7 <*> Procedure Aortic Stent Placement Endovascular 8 <*> Procedure Aortic Stent Placement Endovascular 07/02/21 10:29:18 Warehouse Laborer: SCOTTNAPIER Modifier: EANAPIER 2 <+> Time In [...] Procedure Aortic Stent Placement Endovascular 07/02/21 10:28:42 Warehouse Laborer: [email or web address] Modifier: EANAPIER <+> 2 Case Attendee [...] <+> 8 Role Performed <+> 8 Procedure [facility] IntraOp Case Times Entry 1 Patient In Room Time 07/02/21 09:53:00 Out Room Time 07/02/21 11:17:00 Anesthesia Start Time 07/02/21 09:53:00 Stop Time 07/02/21 11:17:00 Surgery / Procedure Times Start Time 07/02/21 10:16:00 Stop Time 07/02/21 10:59:00 Last Modified By: Kiki Mcallister RN 07/02/21 11:16:51 [facility] IntraOp Case Times Audit 07/02/21 11:16:51 Warehouse Laborer: EANAPIER Modifier: EANAPIER <+> 1 Out Room Time <+> 1 Stop Time 07/02/21 10:58:54 Warehouse Laborer: EANAPIER Modifier: EANAPIER <+> 1 Stop Time 07/02/21 10:17:34 Warehouse Laborer: EANAPIER Modifier: EANAPIER <+> 1 Start Time [facility] IntraOp Communication Entry 1 Entry 2 Communication To Family/Significant other Other Comment PACU Communication By Date and Time Last Modified By: Kiki Mcallister RN Napier, Elizabeth A, RN 07/02/21 10:37:31 07/02/21 10:37:31 [facility] IntraOp Departure from OR Entry 1 Integumentary Assessment Integumentary WDL Assessment WDL Transfer/Handoff Transfer to PACU Phase I Handoff Method Bedside/Face to face Post-op Transport Bed (including Via specialty) Patient Transport BIRD EDWARD, Accompanied by RAFIQ FERNANDEZ HALL, ADAM SRNA, SRNA Transfer/Handoff ICU BED REQUESTED Comments Last Modified By: Kiki Mcallister RN 07/02/21 10:37:51 [facility] IntraOp Dressing and Packing Entry 1 Type Dressing Location GROIN Wound Dressing Item Skin Closure Glue Applied By MIKA THIBODEAUX MD-WYATT Last Modified By: Kiki Mcallister RN 07/02/21 10:35:55 [facility] IntraOp Fire Risk Assessment Entry 1 Fire [...] Modified By: Kiki Mcallister RN 07/02/21 10:28:54 [facility] IntraOp General Case Footwear Sales Associate 1 Case Information OR OR 20 [facility] Case Level 1 Room Verified Yes Wound Class 1 - Clean Specialty Endovascular Anesthesia Type MAC ASA Class 3 Diagnosis Preop Diagnosis AAA Postop Same As Preop Yes Postop Diagnosis AAA Wound Class Definitions Last Modified By: Kiki Mcallister RN 07/02/21 10:25:15 [facility] IntraOp Implant Log Entry 1 Entry 2 Entry 3 Type Implant (Synthetic) Implant (Synthetic) Implant (Synthetic) Implant Log Implant Type Tissue Implant Type Implant CLOSURE SYS PERCLOSE [id number] BLLN VBX Identification [id number] [id number] Description Implant Quantity 3 1 1 Implant Site MAIN BODY RIGHT COMMON ILIAC Implant Identification Model Number Implant [id number] Identification Serial Number Implant Identification Lot Number Implant Price Lab:Vasc Dev Wl [employer] Assc:Med Prdt Identification Crisis Manager Name: Implant [id number] Identification Catalog Number Implant Size 6F 26MM X 12MM X 12CM 8MM X 59 MM Implant Has an Yes Yes Yes Expiration Date Implant Expiration 03/15/23 07/28/23 11/13/23 Date Wasted Radioactive Material Time Implanted Tissue Implant Continue for Tissue Implant Documentation Tissue Identification Number Graft Prep Per Crisis Manager Instructions: Tissue Preparation Method: Reconstitution Solution: Reconstitution Solution Lot Number Reconstitution Solution Expiration Date: Thawing Solution Thawing Solution Lot Number Thawing Solution Expiration Date Preparation Materials, Other Preparation Materials, Other Lot Number Preparation Materials, Other Expiration Date Tissue Prepared/Processed By Crisis Manager Paperwork Completed Implant Type Comment Last Modified By: Kiki Mcallister RN Napier, Elizabeth A, RN Napier, Elizabeth A, RN 07/02/21 10:23:11 07/02/21 10:32:04 07/02/21 10:35:29 Entry 4 Entry 5 Type Implant (Synthetic) Implant (Synthetic) Implant Log Implant Type Tissue Implant Type Implant GRFT EXCLUDER GRFT EXCLUDER Identification [id number] Description Implant Quantity 1 1 Implant Site LEFT COMMON ILIAC RIGHT COMMON ILIAC Implant Identification Model Number Implant [id number] Identification Serial Number Implant Identification Lot Number Implant Wl [employer]a [employer] Assc:Med Prdt Wl [employer] Assc:Med Prdt Identification Crisis Manager Name: Implant [id number] Identification Catalog Number Implant Size 165MM X 12MM X 10 CM 165MM X 12MM X 14 CM Implant Has an Yes Yes Expiration Date Implant Expiration 02/19/24 05/04/24 Date Wasted Radioactive Material Time Implanted Tissue Implant Continue for Tissue Implant Documentation Tissue Identification Number Graft Prep Per Crisis Manager Instructions: Tissue Preparation Method: Reconstitution Solution: Reconstitution Solution Lot Number Reconstitution Solution Expiration Date: Thawing Solution Thawing Solution Lot Number Thawing Solution Expiration Date Preparation Materials, Other Preparation Materials, Other Lot Number Preparation Materials, Other Expiration Date Tissue Prepared/Processed By Crisis Manager Paperwork Completed Implant Type Comment Last Modified By: Kiki Mcallister RN Napier, Elizabeth A, RN 07/02/21 10:53:25 07/02/21 10:53:25 [facility] IntraOp Implant Log Audit 07/02/21 10:53:25 Warehouse Laborer: EANAPIER Modifier: EANAPIER <+> 4 Implant Identification Description <+> 4 Implant Identification Serial Number <+> 4 Implant Identification Crisis Manager Name: <+> 4 Implant Size <+> 4 Implant Expiration Date <+> 4 Implant Site <+> 4 Implant Quantity <+> 4 Implant Identification Catalog Number <+> 4 Implant Has an Expiration Date <+> 4 Type <+> 5 Implant Identification Description <+> 5 Implant Identification Serial Number <+> 5 Implant Identification Crisis Manager Name: <+> 5 Implant Size <+> 5 Implant Expiration Date <+> 5 Implant Site <+> 5 Implant Quantity <+> 5 Implant Identification Catalog Number <+> 5 Implant Has an Expiration Date <+> 5 Type 07/02/21 10:35:29 Warehouse Laborer: EANAPIER Modifier: EANAPIER <+> 3 Implant Identification Description <+> 3 Implant Identification Serial Number <+> 3 Implant Identification Crisis Manager Name: <+> 3 Implant Size <+> 3 Implant Expiration Date <+> 3 Implant Site <+> 3 Implant Quantity <+> 3 Implant Identification Catalog Number <+> 3 Implant Has an Expiration Date <+> 3 Type 07/02/21 10:32:04 Warehouse Laborer: JASKARAN Modifier: EANAPIER <+> 2 Implant Identification Description <+> 2 Implant Identification Serial Number <+> 2 Implant Size <+> 2 Implant Expiration Date <+> 2 Implant Site <+> 2 Implant Quantity <+> 2 Implant Has an Expiration Date <+> 2 Type [facility] IntraOp Intraoperative Assessment Entry 1 Handoff Method [...] Modified By: Kiki Mcallister RN 07/02/21 10:13:59 [facility] IntraOp Intraoperative Equipment Entry 1 Type Monitoring Equipment Intraop Monitoring Electrocardiogram Three lead placement (ECG) Electrode Placement Blood Pressure Non-Invasive BP Device Source Blood Pressure Arm, left upper Location Pulse Oximeter Hand, left Probe Site Antiembolic Devices Scopes Photo/Video Documentation Last Modified By: Kiki Mcallister RN 07/02/21 10:36:06 [facility] IntraOp Medication Admin Entry 1 Entry 2 Entry 3 Medication/Irrigant NETTA VISIPAQUE 320MG 150 NETTA NACL 0.9PCT HPRN lidocaine 1% 50ml vial 200ML --[id number] 1000U .5L -[id number] - [id number] Combo Med List Time Administered Route of [...] RN 07/02/21 10:59:07 07/02/21 10:36:18 07/02/21 10:36:18 [facility] IntraOp Medication Admin Audit 07/02/21 10:59:07 Warehouse Laborer: SCOTTRYANLILIANA Modifier: SCOTTNAPIER <+> 1 Dose [facility] IntraOp Patient Positioning Entry 1 Procedure Aortic [...] Lam RN, MIKA THIBODEAUX MD-WYATT, BIRD EDWARD, HOOP ROLLS OPERATOR, HASHER OPERATOR Position Verified Positioning Yes Verified by Anesthesia Positioning Yes Verified by Surgeon Last Modified By: Kiki Mcallister RN 07/02/21 10:36:48 [facility] IntraOp Sign In Entry 1 Patient, Site, [...] Modified By: Kiki Mcallister RN 07/02/21 10:29:17 [facility] IntraOp Sign Out Entry 1 RN Confirmation [...] Modified By: Kiki Mcallister RN 07/02/21 11:17:00 [facility] IntraOp Sign Out Audit 07/02/21 11:17:00 Warehouse Laborer: JASKARAN Modifier: MEHNAZER <+> 1 RN Sign Out Signature Date/Time [facility] IntraOp Skin Prep Entry 1 Procedure Aortic Stent Placement Endovascular Prescribed Yes Pre-Surgical Prep Completed Prep Area NIPPLES TO KNEES Intraop Prep Integumentary WDL Assessment WDL Prep Agents Chloraprep Hair Removal Methods Clipper/Scissors Last Modified By: Kiki Mcallister RN 07/02/21 10:25:42 [facility] IntraOp Surgical Procedures Entry 1 Procedure Aortic Stent Placement Endovascular Additional ENDO REPAIR AAA Procedure Description Primary Procedure Yes Primary Surgeon MIKA THIBODEAUX MD-WYATT Start 07/02/21 10:16:00 Stop 07/02/21 10:59:00 Anesthesia Type MAC Specialty Endovascular Wound Class 1 - Clean Last Modified By: Kiki Mcallister RN 07/02/21 11:01:01 [facility] IntraOp Surgical Procedures Audit 07/02/21 11:01:01 Warehouse Laborer: JASKARAN Modifier: MEHNAZER 1 <*> Procedure Aortic Stent Placement Endovascular 1 <+> Stop 1 <*> Additional Procedure Description (ENDO REPAIR AAA) [facility] IntraOp Temp Regulation Devices Entry 1 Temp Regulation Temperature Forced Air Warming Regulation Device device Temperature Upper body Regulation Site Temperature Device 43 C Setting Temperature BIRD EDWARD, Regulation Device HOOP ROLLS OPERATOR, HASHER OPERATOR Applied by Last Modified By: Kiki Mcallister RN 07/02/21 10:36:57 [facility] IntraOP Time Out Entry 1 Procedure to [...] Modified By: Kiki Mcallister RN 07/02/21 10:13:57 [facility] IntraOp X-Ray and Images Entry 1 X-Ray/Imaging [...] WATTSDR Correct Billing Electronically signed by [facility] Conversion Crystal Evaluator Cerner at 08/31/2022 9:33 PM CDT documented in this encounter Plan of Treatment Not on file documented as of this encounter Visit Diagnoses Not on filedocumented in this encounter
--- OUTSIDE RECORDS SUMMARY | 2024-10-21 20:48 | XMS_ITS | Encounter Summary ---
Author Organization [employer] Address [address] [place] [address] Care Team Providers Care Children'S Ministry Director Name Role Phone Unavailable Primary Care Provider Unavailabl e Encounter Details Date Type Department Care Team (Late st Contact Info) Description 07/02/2021 Transcribed Document [address] [address] Stevan Watkins MD [address] [facility] [place] [address] Social History Tobacco Use Types Packs/Day Years [...] surface. This was in retrograde fashion. 8 Jordanian sheaths were placed. 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 This was successful and an 8 x 59 Artemas VBX covered stent was deployed across the right common iliac artery origin. This allowed for placement of a Perclose device and a 12 Jordanian sheath within the right femoral artery. The left femoral access was also achieved and 2 Perclose devices were placed. It was difficult accessing the aorta due to severe common iliac artery stenosis. Afterwards a 16 Jordanian sheath was placed in retrograde fashion into the aorta. A 26 x 1212 graft was advanced. Abdominal aortography was performed. This was deployed below the bilateral renal arteries. The contralateral gate was next cannulated. A 12 x 14 limb was deployed into the right common iliac artery stent. The left common iliac was treated with a 12 x 10 limb sports book board attendant. This extended above the left internal iliac [...] Loss Less than 100 mL *Findings 1. Artemas excluder 26 1212 main body, left limb extension 12 x 10 and right contralateral limb 12 x 14 2. 8 x 59 Artemas VBX stent in right common iliac artery *Specimen(s) none Complications none Date of Service Date/Time of Service SN - Proc - Start Time: 07/02/21 10:16:00 (07/02/21 10:29:31) documented in this encounter Plan of Treatment Not on file documented as of this encounter Visit Diagnoses Not on filedocumented in this encounter
--- OUTSIDE RECORDS SUMMARY | 2024-10-21 20:48 | XMS_ITS | Encounter Summary ---
Author Organization [employer] Address [address] [place] [address] Care Team Providers Care Airline Security Representative Name Role Phone Unavailable Primary Care Provider Unavailabl e Encounter Details Date Type Department Care Team (Late st Contact Info) Description 07/03/2021 Transcribed Document [facility] Family Medicine [address] [place] [address] [facility] [place] [address] Social History Tobacco Use Types Packs/Day Years [...] - Historical ProviderMD - 07/03/2021 11:34 AM DIRECTOR OF WOMEN'S SERVICES Discharge Summary, PT Entered On: 07/03/2021 11:35 [...] 07/03/2021 11:34 EST Electronically signed by Deepak [facility] Conversion Brush Polisher Cerner at 08/31/2022 9:34 PM CDT documented in this encounter Plan of Treatment Not on file documented as of this encounter Visit Diagnoses Not on filedocumented in this encounter
--- OUTSIDE RECORDS SUMMARY | 2024-10-21 20:48 | XMS_ITS | Encounter Summary ---
Author Organization [employer] Address [address] [place] [address] Care Team Providers Care Chair Maker Name Role Phone Unavailable Primary Care Provider Unavailabl e Encounter Details Date Type Department Care Team (Late st Contact Info) Description 07/03/2021 Transcribed Document [facility] [place] [facility] [place] [address] ProviderMorteza MD [facility] [place] [address] Social History Tobacco Use Types [...] - Historical ProviderMD - 07/03/2021 2:51 PM EBD TEACHER Patient Education Materials Follows: Hypertension, Adult High [...] provider. This is important. Medicines ??? Take kbkt-cpq-jxqjzeb and prescription medicines only as told by [...] provider. Document Revised: 01/10/2019 Document Reviewed: 01/10/2019 [employer] Patient Education ? 2020 [employer] Caregiving Home Oxygen Use, Adult When [...] provider or a person from your medical billing service company will show you how to use [...] it and its top with a disinfectant lamp cleaner. ? Air-dry it. ? Make sure [...] aerosol sprays. ? Rubbing alcohol. ? Hand supervisor dials. ??? When you go to a restaurant [...] move around. Follow instructions from your medical billing service company about how to safely secure your [...] from your health care provider and medical billing service company before you travel. General safety tips [...] tubing. Where to find more information ??? [employer]: www.lung.org/oxygen Contact a health care [...] provider or a person from your medical billing service company will show you how to use [...] provider. Document Revised: 07/03/2020 Document Reviewed: 04/29/2020 [employer] Patient Education ? 2020 [employer] Procedures Abdominal Aortic Aneurysm Endograft Repair, [...] these instructions at home: Medicines ??? Take rtnb-nuv-ogonoqc and prescription medicines only as told by [...] and water are not available, use hand supervisor dials. ? Change your dressing as told by [...] provider. Document Revised: 04/17/2020 Document Reviewed: 04/17/2020 [employer] Patient Education ? 2020 [employer] Pulmonary Medicine Steps to Quit Smoking [...] a prescription, and some you can buy [id number]. Some medicines may contain a drug called [...] encourage you. ??? Call a phone quitline (4-132-SNWP-NOW), reach out to support groups, or work [...] provider. Document Revised: 01/25/2020 Document Reviewed: 07/21/2019 [employer] Patient Education ? 2020 [employer]. Electronically signed by Benjamin Sotelo Conversion Geotechnical Operating Engineer [employer] at 08/31/2022 9:49 PM CDT documented in this encounter Plan of Treatment Not on file documented as of this encounter Visit Diagnoses Not on filedocumented in this encounter
--- OUTSIDE RECORDS SUMMARY | 2024-10-21 20:48 | XMS_ITS | Encounter Summary ---
Author Organization [employer] Address [address] [place] [address] Care Team Providers Care Vehicle Delivery Worker Name Role Phone Unavailable Primary Care Provider Unavailabl e Encounter Details Date Type Department Care Team (Late st Contact Info) Description 07/02/2021 Transcribed Document [facility] Radiology [address] [place] [address] Stevan Watkins MD [address] [facility] [place] [address] Social History Tobacco Use Types Packs/Day Years [...] 20 mg, Oral, 1-Time Documented Medications Documented [place] 7.5 mg-325 mg oral tablet: 1 Tab, [...] metoprolol succinate 25 mg, Oral, At Bedtime [place] 7.5 mg-325 mg oral tablet 1 Tab, [...] in past 4-5months 2021 / SNOMED CT 7920567786 / Confirmed Peripheral vascular disease / SNOMED CT 0517946291 / Confirmed HTN (hypertension) / SNOMED CT 2217107647 / Confirmed HLD (hyperlipidemia) / SNOMED CT 16831081 / Confirmed Hemorrhoids / SNOMED CT 598549580 / Confirmed COPD / SNOMED CT 47046725 / Confirmed lower back pain to both hips- to BLE / SNOMED CT 808927819 / Confirmed At risk for sleep apnea / IMO [id number] / Confirmed Anxiety / SNOMED CT 29897032 / Confirmed Abdominal aortic aneurysm / SNOMED CT 207327582 / Confirmed, Active Problems (10) Abdominal aortic [...]
[2024-10-21] MEDS: MELATONIN 5MG TABLET 5 MG PO (21:16)
[2024-10-21] MEDS: PANTOPRAZOLE 40MG TABLET 40 MG PO (21:16)
[2024-10-21] MEDS: ATORVASTATIN 40MG TABLET 40 MG PO (21:16)
[2024-10-22] VITALS (8 sets, daily range): BP systolic 130–154; BP diastolic 61–78; PULSE 60–80; RESP 16–18; TEMP 36.6–36.7; O2SAT 90–98; BMI 18.4
[2024-10-22] MEDS: ENOXAPARIN 60MG/0.6ML SYRINGE 50 MG SUBCUT ×2 (02:04→14:45)
--- NOTE | 2024-10-22 03:50 | PC.NURSE ---
Patient has appeared much more alert, pleasant-natured and conversational, and without fatigue this shift. She was observed to be awake throughout the majority of the shift, watching TV. Patient has not expressed any complaints other than having a productive cough and questions about ongoing plan of care. Expiratory/inspiratory wheezing present upon auscultation, heart and bowel sounds remain within normal findings. Skin issues documented accordingly. Telemetry + continuous pulse ox remain intact. Scheduled medications administered per JUL. Bedtime snacks were provided this shift; she has remained NPO since midnight. Patient continues to require assistance during transfers/ambulation. Purewick and bedside commode utilized for elimination needs. She remains on 2 L of oxygen via nasal cannula with oxygen saturations > 90%. Other vital signs stable. At this time, the patient is resting in bed without any apparent distress. No new needs at this time. Call light within reach.
[2024-10-22] MEDS: LEVOTHYROXINE 25MCG (0.025MG) TAB 25 MCG PO (06:30)
[2024-10-22] MEDS: IPRATROPIUM/ALBUTEROL 3 ML NEB IH (06:44)
[2024-10-22 06:58] LABS: Basophils % 0.3 % (0.1-2.0); Eosinophils % 0.4 % (0.1-12.0); Hematocrit 38.3 % (37.0-47.0); Hemoglobin 11.7 g/dL (12.2-16.2); Immature Granulocytes # 0.06 10^3uL; Immature Granulocytes % 0.9 %; Lymphocytes # 2.3 K/mm3 (0.7-4.5); Lymphocytes % 32.9 % (10-50); Mean Corpuscular HGB Conc 30.5 g/dL (31.8-35.4); Mean Corpuscular Hemoglobin 25.5 pg (27.0-31.2); Mean Corpuscular Volume 83.4 fl (81-99); Mean Platelet Volume 8.9 fl (7.4-10.4); Monocytes # 0.8 K/mm3 (0.1-1.0); Neutrophils # 3.8 K/mm3 (1.8-7.8); Neutrophils % 54.5 % (37.0-80.0); Nucleated Red Blood Cells # 0 10^3/uL; Nucleated Red Blood Cells % 0 %; Platelet Count 213 K/mm3 (142-424); Red Blood Count 4.59 M/mm3 (4.20-5.40); Red Cell Distribution Width 13.9 % (11.5-17.5); Red Cell Distribution Width-SD 42.2 fL; White Blood Count 6.9 K/mm3 (4.8-10.8)
[2024-10-22 07:18] LABS: Albumin Level 3.3 g/dl (3.5-5.0); Chloride 98 mmol/L (98-107); Potassium 4.4 mmoL/L (3.5-5.1); Sodium 134 mmol/L (136-145)
[2024-10-22 07:20] LABS: Alanine Aminotransferase 9 U/L (12-78); Aspartate Amino Transferase 30 U/L (14-36); Blood Urea Nitrogen 14 mg/dl (7-17); Creatinine Clearance Estimated 40 mL/min (50-200); Estimated Glomerular Filt Rate 83 ml/min (>60); GFR (African American) 100 ML/MIN (>60)
[2024-10-22 07:21] LABS: Alkaline Phosphatase 69 U/L (38-126); Anion Gap 5.4 mEq/L (5-15); Bilirubin,Total 0.2 mg/dl (0.2-1.3); Calcium 8.6 mg/dl (8.4-10.2); Carbon Dioxide 35 mmol/L (22.0-30.0); Globulin 3.4 g/dL (1.3-3.2); Glucose 93 mg/dl (74-100); Magnesium 1.9 mg/dl (1.6-2.3); Total Protein,Serum 6.7 g/dl (6.3-8.2)
[2024-10-22] MEDS: predniSONE 20MG TAB 40 MG PO (08:20)
[2024-10-22] MEDS: METOPROLOL SUCCINATE XL 25MG TABLET 25 MG PO (08:20)
[2024-10-22] MEDS: DOCUSATE SODIUM 100 MG CAPSULE PO (08:20)
[2024-10-22] MEDS: BUPRENORPHINE/NALOXONE 8MG/2MG ODT 1 EACH SL (08:21)
[2024-10-22] MEDS: GABAPENTIN 400MG CAPSULE 400 MG PO ×2 (08:21→12:48)
[2024-10-22] MEDS: NICOTINE 21MG/24HR PATCH 21 MG TD (08:22)
--- NOTE | 2024-10-22 08:45 | SW/DCPLANNER ---
I spoke w/ this patient regarding plans once medically stable for discharge. PT evaluated patient and recommended SNF level of care or home w/ 24-7 care or home health services. Per patient she plans to return home w/ daughter and is agreeable to home health services. Patient stated that her daughter will be onsite at 11AM. CM will continue to follow up. Discharge date is unknown at this time.
[2024-10-22] MEDS: IRBESARTAN 75MG TABLET 75 MG PO (09:43)
--- NOTE | 2024-10-22 11:13 | EXP.PULM.CON ---
History of Present Illness History of present illness: Ms. Grier is a 69-year-old female presented with progressively worsening weakness, unable to perform her activities of daily living. Patient also found to be hypoxic on admission. [facility] Disclaimer: The information contained in this section may have been updated after the patient was seen, as this information can be updated by other users. Medical History (Updated 10/22/24 @ 12:16 by Laquita Mcdonnell MD) Mediastinal lymphadenopathy Hilar lymphadenopathy Restless sleeper Snoring Smoker Palpitations Tachycardia HTN (hypertension), benign HLD (hyperlipidemia) Carotid stenosis Ligamentum flavum hypertrophy Bulging of lumbar intervertebral disc Facet hypertrophy of lumbar region Anxiety Surgical History H/O breast biopsy Hx of tonsillectomy Family History Other Anxiety Social History (Updated 10/20/24 @ 04:51 by Kathy Mooney RN) Smoking Status: Current every day smoker tobacco type: cigarettes packs per day: 1 second hand exposure: Yes alcohol intake: never substance use type: denies use current occupational status: retired Travel in the last 8 weeks?: None household members: none housing: apartment number of children: 4 caffeine: No Have you lived/traveled outside US in past 30 days?: No Contact w/someone who lives/traveled outside US past 30 days?: No Exposure to someone with infectious disease in past 14 days?: No Do you have a fever (greater than 100.4 F or 38 C)?: No Have you tested positive for COVID-19?: No Exposed to someone with COVID-19 in past 14 days?: No Do you have a sore throat?: No Do you have a cough?: No Do you have any weakness?: No Are you experiencing any nausea/vomitting?: No Do you have any diarrhea?: No Are you experiencing any unusual bleeding?: No Do you have any muscle aches/pain?: No Do you have any abdominal pain?: No Are you experiencing loss of taste or smell?: No Review of Systems Constitutional Constitutional: Reports fatigue, Reports poor appetite and Reports lethargy Eyes Eyes: Denies eye discharge, Denies dry eyes, Denies irritation and Denies itchy eyes ENT Ears, Nose, Mouth, and Throat: Denies epistaxis, Denies facial pain, Denies lip swelling and Denies throat swelling *Cardiovascular Cardiovascular: Reports dyspnea and Reports dyspnea on exertion *Respiratory Respiratory: Denies change in phlegm color, Reports chest congestion, Reports cough, Reports dyspnea, Reports dyspnea on exertion, Denies excessive phlegm production, Denies hemoptysis, Denies pain on inspiration, Denies pain with cough and Reports wheezing *Gastrointestinal Gastrointestinal: Denies abdominal pain, Denies belching and Denies cramping *Musculoskeletal Musculoskeletal: Reports back pain, Reports myalgias and Reports other (No small joint swelling or Pain) Psychiatric Psychiatric: Denies homicidal ideation and Denies suicidal ideation Endocrine Endocrine: Reports fatigue and Denies heat intolerance Hematologic/Lymphatic Hematologic/Lymphatic: Denies easy bleeding and Denies lymphadenopathy Allergic/Immunologic Allergic/Immunologic: Denies itchy eyes, Denies lip swelling, Denies throat swelling and Reports wheezing Pulmonology Exam Inpatient Vital signs and Labs for Last 24 Hours: Temp Pulse Resp BP Pulse Ox O2 Del Method O2 Flow Rate 98.0 F 76 16 154/65 H 93 L Nasal Cannula 2 10/22/24 08:00 10/22/24 08:00 10/22/24 08:00 10/22/24 08:00 10/22/24 08:00 10/22/24 10:43 10/22/24 10:43 FiO2 28 10/21/24 20:18 Laboratory Results - last 24 hr 10/21/24 17:38: Chlamy pneumoniae PCR Not detected, Adenovirus (PCR) Not detected, B. pertussis DNA (PCR) Not detected, Coronavirus OC43 (PCR) Not detected, Coronavirus HKU1 (PCR) Not detected, Coronavirus 229E (PCR) Not detected, SARS-CoV-2 (PCR) Not detected, Coronavirus NL63 (PCR) Not detected, Human Metapneumovir PCR Not detected, Influenza A (H1) PCR Not detected, Influ A (H1N1/09) PCR Not detected, Influenza A (H3) PCR Not detected, Influenza Type A (PCR) Not detected, Influenza Type B (PCR) Not detected, M. pneumoniae (PCR) Not detected, Parainfluenza 1 (PCR) Not detected, Parainfluenza 2 (PCR) Not detected, Parainfluenza 3 (PCR) Not detected, Parainfluenza 4 (PCR) Not detected, RSV (PCR) Not detected, Entero/Rhino (PCR) Not detected 10/22/24 05:35: WBC 6.9 D, RBC 4.59, Hgb 11.7 L, Hct 38.3, MCV 83.4, MCH 25.5 L, MCHC 30.5 L, RDW 13.9, Plt Count 213, MPV 8.9, Neut % (Auto) 54.5, Lymph % (Auto) 32.9, Catahoula % (Auto) 11.0 H, Eos % (Auto) 0.4, Baso % (Auto) 0.3, Neut # (Auto) 3.8, Lymph # (Auto) 2.3, Catahoula # (Auto) 0.8, Eos # (Auto) 0.0, Baso # (Auto) 0.0, Sodium 134 L, Potassium 4.4, Chloride 98, Carbon Dioxide 35 H, Anion Gap 5.4, BUN 14, Creatinine 0.70 D, Estimated Creat Clear 40, Estimated GFR 83, Est GFR ( Amer) 100 D, Glucose 93, Calcium 8.6, Magnesium 1.9, Total Bilirubin 0.2, AST 30, ALT 9 L, Alkaline Phosphatase 69, Total Protein 6.7, Albumin 3.3 L, Globulin 3.4 H, Albumin/Globulin Ratio 1.0 L I & O for Labs for Last 24 Hours: Intake & Output 10/19/24 10/20/24 10/21/24 10/22/24 23:59 23:59 23:59 23:59 Intake Total 240 / 590 590 / 1090 500 / 500 Output Total 675 / 675 1750 / 2000 250 / 250 Balance -435 / -85 -1160 / -910 250 / 250 Weight 112 lb 106 lb 9.6 oz 108 lb 108 lb Microbiology Reports for the Last 24 Hours: Microbiology 10/21/24 Unknown Sputum - Expectorated Sputum Gram Stain - Final Constitutional: Present moderate distress Head: Present normocephalic and atraumatic ENT: Present normal exam, normal oropharynx and mucous membranes moist Neck: Present normal inspection and full ROM Respiratory: Present able to speak in complete sentences; Absent respiratory distress, wheezes, crackles or diminished air movement Cardiac: Present S1/S2, Tachycardia and radial pulses present GI: Present soft and distention; Absent tenderness or guarding Rectal (female): Present deferred (female): Present deferred Skin: Present intact; Absent cyanosis or jaundice Neuro: Present alert, awake and oriented x 3 Extremities: Present normal inspection; Absent clubbing or cyanosis Psychiatric: Present normal affect and cooperative Meds Home Medications and Allergies Home Medications ?Medication ?Instructions ?Recorded ?Confirmed ?Type albuterol sulfate 2.5 mg/3 mL 2.5 mg inhalation Q6HP PRN 12/29/18 10/20/24 History (0.083 %) solution for nebulization Shortness Of Breath buprenorphine 8 mg-naloxone 2 mg 2 film sublingual DAILY 10/20/24 10/20/24 History sublingual film clopidogrel 75 mg tablet 75 mg PO DAILY 10/20/24 10/20/24 History gabapentin 800 mg tablet 800 mg PO TID 10/20/24 10/20/24 History levothyroxine 25 mcg tablet 25 mcg PO DAILYDM 10/20/24 10/20/24 History losartan 50 mg tablet 75 mg PO DAILY 10/20/24 10/20/24 History metoprolol succinate 25 mg 25 mg PO DAILY 10/20/24 10/20/24 History tablet,extended release 24 hr rosuvastatin 20 mg tablet 20 mg PO DAILY 10/20/24 10/20/24 History New Prescriptions to Start Prescriptions: Allergies Allergy/AdvReac Type Severity Reaction Status Date / Time Sulfa (Sulfonamide Allergy Mild Anaphylaxis Verified 11/10/23 09:19 Antibiotics) Results Laboratory Findings 10/22/24 05:35 10/22/24 05:35 PT/INR, D-dimer PT 13.0 seconds (10.1-12.5) H 10/21/24 05:55 INR 1.19 (0.9-1.1) H 10/21/24 05:55 D-Dimer 3.24 ug/mL (0.0-0.5) H 10/20/24 00:16 Abnormal lab findings: Abnormal Labs 10/20/24 10/20/24 10/20/24 00:10 00:16 01:55 RBC 5.46 H Hgb MCV 80.8 L MCH 26.2 L MCHC Neut % (Auto) Catahoula % (Auto) 9.6 H Eos % (Auto) PT 12.7 H INR 1.16 H D-Dimer 3.24 H VBG pO2 43.9 H VBG Total CO2 28.1 H VBG O2 Saturation 81.9 H VBG Lactic Acid 2.2 H Sodium 128 L Chloride 95 L Carbon Dioxide Creatinine Glucose 132 H POC Glucose ALT Troponin I 0.04 H NT-Pro-B Natriuret Pep 61779 H Total Protein 9.0 H Albumin Globulin 4.9 H Albumin/Globulin Ratio 0.8 L Cholesterol LDL Cholesterol Direct HDL Cholesterol Urine Protein 1+ A 10/20/24 10/20/24 10/20/24 03:15 06:11 06:50 RBC Hgb 11.9 L D MCV MCH 25.4 L MCHC 30.9 L Neut % (Auto) 83.3 H Catahoula % (Auto) 1.4 L Eos % (Auto) 0.0 L PT INR D-Dimer VBG pO2 VBG Total CO2 VBG O2 Saturation VBG Lactic Acid Sodium 127 L Chloride Carbon Dioxide Creatinine 0.50 L Glucose 138 H POC Glucose 175 H ALT 8 L D Troponin I 0.04 H 0.04 H NT-Pro-B Natriuret Pep Total Protein Albumin 3.4 L D Globulin 3.5 H Albumin/Globulin Ratio 1.0 L Cholesterol 92 L LDL Cholesterol Direct 38.10 L HDL Cholesterol 31 L Urine Protein 10/20/24 10/21/24 10/22/24 11:17 05:55 05:35 RBC Hgb 11.7 L MCV MCH 25.5 L MCHC 30.5 L Neut % (Auto) Catahoula % (Auto) 11.0 H Eos % (Auto) PT 13.0 H INR 1.19 H D-Dimer VBG pO2 VBG Total CO2 VBG O2 Saturation VBG Lactic Acid Sodium 134 L Chloride Carbon Dioxide 35 H Creatinine Glucose POC Glucose 190 H ALT 9 L Troponin I NT-Pro-B Natriuret Pep Total Protein Albumin 3.3 L Globulin 3.4 H Albumin/Globulin Ratio 1.0 L Cholesterol LDL Cholesterol Direct HDL Cholesterol Urine Protein Assessment and Plan *Assessment and plan (1) Lung mass: Status: Acute Category: Medical Code(s): R91.8 - Other nonspecific abnormal finding of lung field (2) Productive cough: Status: Acute Category: Medical Code(s): R05.8 - Other specified cough (3) Subclavian artery thrombosis: Status: Acute Category: Medical Code(s): I74.8 - Embolism and thrombosis of other arteries (4) Hilar lymphadenopathy: Status: Acute Category: Medical Code(s): R59.0 - Localized enlarged lymph nodes (5) Mediastinal lymphadenopathy: Status: Acute Category: Medical Code(s): R59.0 - Localized enlarged lymph nodes Plan Ms. Grier is a 69-year-old female presented with progressively worsening weakness, unable to perform her activities of daily living. Patient also found to be hypoxic on admission. CTA upon admission no evidence of pulmonary embolism. Large 3.8 cm spiculated right upper lobe nodule along with 8 mm left lower lobe nodule, station 5,4L, 7 and 10L lymphadenopathy noted. Emphysematous changes noted. 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 Afebrile. Hemodynamically stable. Evidence of leukocytosis. Venous blood gas did not show any evidence of hypoxic/hypercarbic respiratory failure. Complains of respiratory viral PCR panel negative. On examination mild respiratory distress. No significant wheezing noted on auscultation. Current smoker greater than 30 PPD. Admits using Trelegy inhaler at baseline. Plan: Will schedule patient for outpatient bronchoscopy EBUS FNA. Recommend cardiology consult for cardiac risk assessment evaluation Recommend continuing Lovenox twice daily for the treatment of her subclavian arterial thrombosis. Recommend cardiology consult to evaluate for current antiplatelet regimen as patient already on aspirin and Plavix prior to this hospital admission. Trelegy 100 inhaler along with DuoNebs 4 times daily as needed Continue oxygen supplementation to maintain O2 saturation goal of 90% and above. Currently on 2 L nasal cannula saturating 90% and above. Continue levofloxacin and prednisone to complete a total of 5-day course for presumed pneumonia/COPD exacerbation. # Thank you for involving pulmonary in this patient care. Will schedule outpatient EBUS FNA will call the patient. Patient otherwise stable to be discharged from pulmonary standpoint with the above-mentioned recommendations
--- NOTE | 2024-10-22 12:01 | SW/DCPLANNER ---
Addendum entered by Amelia Sparks 10/22/24 14:03: [facility] is able to accept patient. Sherie Cooney Addendum entered by Amelia Sparks 10/22/24 13:00: Spoke with patient's daughter in the room about once her mother is medically stable ready for discharge if she would be interested in having home health come in and help with her mom for PT and rekha stated that she would and that she would be going to go and live with her at her resident at [address] [place] [address]. Patient's daughter stated that she has no preference in home health agency. I am going to fax patient's information to [facility] and will update once i hear back from them if they can accept the patient or not. Sherie Cooney Original Note: Phoned patient's daughter and no answer left a message with my name and number to call me back for i can discuss home health services with her. Sherie Cooney
--- NOTE | 2024-10-22 12:37 | EXP.DC.SUM ---
General Admission date:: 10/20/24 Discharge date: 10/22/24 HPI HPI HPI: 69-year-old female comes to the ER due to progressive and persistent weakness over the last week. She has not been able to perform her ADLs at home as a result of her symptoms. She is also having significant shortness of breath which was very functionally limiting. She has been having a productive cough as well denying fevers chills or other infectious symptoms. In the ER hypoxemic started on nasal cannula. EKG normal sinus rhythm with ST depressions in inferolateral leads. Mildly elevated troponin. Elevated BNP. Bedside ultrasound demonstrated normal LVEF and mild hypokinesis in the lateral wall. RV dilated. CTA chest 4 cm spiculated mass in the posterior right upper lobe suspicious for malignancy with surrounding nodules that may represent atypical infectious etiology and the granuloma CTA neck with high-grade subclavian artery stenosis and thrombus Discussed findings with patient. Will admit perform further diagnostic testing. Provide symptomatic management for her anxiety History independently obtained. Diagnostics and lab eval independently interpreted. Prior records reviewed. Discussed case with ER physician Hospital Course Hospital Course Hospital Course: Anisha Grier is a 69-year-old female with a longstanding smoking history, COPD, CAD, PAD, SPENCER, hypertension, AAA, hypothyroidism who presents due to shortness of breath, cough, and generalized weakness. Admitted for further evaluation of left subclavian artery stenosis, lung mass, NSTEMI. Evaluated by cardiology and pulmonology. Will continue Levaquin and prednisone to complete 5 days for pneumonia and COPD exacerbation. Plan for close follow-up for further evaluation of lung mass. Stable discharge home on room air with further management as an outpatient. Problems addressed as follows: #Right lung mass #Suspected malignancy #Mediastinal, hilar adenopathy ? Chronic longstanding smoker. Found to have growing 4 cm spiculated mass in the right upper lobe, with possible metastasis to the left lower lobe. Chest imaging also concerning for presumed pneumonia/COPD exacerbation. Pulmonology was consulted. Recommend continuing antibiotics and steroids for 5 days. Will complete course with Levaquin and prednisone. Plan to schedule outpatient EBUS FNA in the near future. Patient stable to be discharged from pulmonary standpoint. Will continue Trelegy 100 inhaler along with DuoNebs as needed. In regard to subclavian artery thrombosis, recommend Lovenox therapeutic dosing twice daily until follow-up as an outpatient. Further recommendations at that time. #Suspected pneumonia #COPD exacerbation ? Diffuse rhonchi with white/yellow productive cough. Antibiotics as above. Sputum cultures pending at time of discharge #Left subclavian artery stenosis ? CTA noted high-grade left subclavian artery stenosis. Treated with Lovenox during admission. Will continue therapeutic Lovenox, aspirin 81 mg daily, statin daily. #NSTEMI Hypertension ? Troponin 0.04, EKG without acute ischemic changes. Cardiology consulted. Last stent placed in 2020. Bedside echo in the ED showed preserved EF. Recommend repeat ischemic evaluation as an outpatient. Consider further evaluation after workup of her lung mass. Continue aspirin 81 mg like, plan 75 mg daily, losartan 75 mg daily, metoprolol succinate 25 mg daily, and Crestor 20 mg daily. # Hyperthyroidism: Continue levothyroxine 25 mcg daily Gabapentin 800 mg 3 times a day for neuropathy Continue home Suboxone regimen Therapy evaluated, recommend placement. Patient does not want to go to placement. Would like to go home with daughter. Referred to home health for further management. total time spent on discharge 32 minutes in counseling, documentation, chart review, and direct care with patient. Exam Data for Last 24 hours Vital signs and Labs for Last 24 Hours: Temp Pulse Resp BP Pulse Ox O2 Del Method O2 Flow Rate 98.0 F 76 16 154/65 H 93 L Nasal Cannula 2 10/22/24 08:00 10/22/24 08:00 10/22/24 08:00 10/22/24 08:00 10/22/24 08:00 10/22/24 10:43 10/22/24 10:43 FiO2 28 10/21/24 20:18 Laboratory Results - last 24 hr 10/21/24 17:38: Chlamy pneumoniae PCR Not detected, Adenovirus (PCR) Not detected, B. pertussis DNA (PCR) Not detected, Coronavirus OC43 (PCR) Not detected, Coronavirus HKU1 (PCR) Not detected, Coronavirus 229E (PCR) Not detected, SARS-CoV-2 (PCR) Not detected, Coronavirus NL63 (PCR) Not detected, Human Metapneumovir PCR Not detected, Influenza A (H1) PCR Not detected, Influ A (H1N1/09) PCR Not detected, Influenza A (H3) PCR Not detected, Influenza Type A (PCR) Not detected, Influenza Type B (PCR) Not detected, M. pneumoniae (PCR) Not detected, Parainfluenza 1 (PCR) Not detected, Parainfluenza 2 (PCR) Not detected, Parainfluenza 3 (PCR) Not detected, Parainfluenza 4 (PCR) Not detected, RSV (PCR) Not detected, Entero/Rhino (PCR) Not detected 10/22/24 05:35: WBC 6.9 D, RBC 4.59, Hgb 11.7 L, Hct 38.3, MCV 83.4, MCH 25.5 L, MCHC 30.5 L, RDW 13.9, Plt Count 213, MPV 8.9, Neut % (Auto) 54.5, Lymph % (Auto) 32.9, [place] % (Auto) 11.0 H, Eos % (Auto) 0.4, Baso % (Auto) 0.3, Neut # (Auto) 3.8, Lymph # (Auto) 2.3, [place] # (Auto) 0.8, Eos # (Auto) 0.0, Baso # (Auto) 0.0, Sodium 134 L, Potassium 4.4, Chloride 98, Carbon Dioxide 35 H, Anion Gap 5.4, BUN 14, Creatinine 0.70 D, Estimated Creat Clear 40, Estimated GFR 83, Est GFR ( Amer) 100 D, Glucose 93, Calcium 8.6, Magnesium 1.9, Total Bilirubin 0.2, AST 30, ALT 9 L, Alkaline Phosphatase 69, Total Protein 6.7, Albumin 3.3 L, Globulin 3.4 H, Albumin/Globulin Ratio 1.0 L I & O for Last 24 hours: Intake & Output 10/19/24 10/20/24 10/21/24 10/22/24 23:59 23:59 23:59 23:59 Intake Total 240 / 590 590 / 1090 500 / 500 Output Total 675 / 675 1750 / 2000 250 / 250 Balance -435 / -85 -1160 / -910 250 / 250 Weight 50.802 kg 48.353 kg 48.988 kg 48.988 kg Microbiology Reports for the Last 24 Hours: Microbiology 10/21/24 Unknown Sputum - Expectorated Sputum Gram Stain - Final 10/21/24 Unknown Sputum - Expectorated Sputum Sputum Culture - Preliminary Constitutional Constitutional: no acute distress, cachectic, chronically ill appearing and cooperative *Routine HEENT Exam Head: Present normocephalic Eye: Present EOMI and PERRL ENT: Present mucous membranes moist *Routine Neck Exam Neck: Present supple; Absent lymphadenopathy *Routine Respiratory Exam Respiratory: Present rhonchi and wheezes; Absent accessory muscle use, CTA bilaterally or crackles *Routine Cardiovascular Exam Cardiovascular: Present RRR *Routine Abdominal Exam Abdominal: Present soft and normoactive bowel sounds; Absent tenderness *Routine Rectal Exam Patient deferred: visual exam *Routine Exam Patient deferred: external exam *Routine Extremities Exam Extremities: Absent cyanosis, clubbing or edema *Routine Skin Exam Skin: Present intact and warm; Absent rash *Routine Neurological Exam Neurological: Present alert, oriented X3 and moving all extremities; Absent altered mental status Results Data Completed and Pending Labs on day of discharge: Labs from last 24 hours 10/22/24 10/21/24 05:35 17:38 WBC 6.9 D RBC 4.59 Hgb 11.7 L Hct 38.3 MCV 83.4 MCH 25.5 L MCHC 30.5 L RDW 13.9 Plt Count 213 MPV 8.9 Neut % (Auto) 54.5 Lymph % (Auto) 32.9 [place] % (Auto) 11.0 H Eos % (Auto) 0.4 Baso % (Auto) 0.3 Neut # (Auto) 3.8 Lymph # (Auto) 2.3 [place] # (Auto) 0.8 Eos # (Auto) 0.0 Baso # (Auto) 0.0 Sodium 134 L Potassium 4.4 Chloride 98 Carbon Dioxide 35 H Anion Gap 5.4 BUN 14 Creatinine 0.70 D Estimated Creat Clear 40 Estimated GFR 83 Est GFR ( Amer) 100 D Glucose 93 Calcium 8.6 Magnesium 1.9 Total Bilirubin 0.2 AST 30 ALT 9 L Alkaline Phosphatase 69 Total Protein 6.7 Albumin 3.3 L Globulin 3.4 H Albumin/Globulin Ratio 1.0 L Chlamy pneumoniae PCR Not detected Adenovirus (PCR) Not detected B. pertussis DNA (PCR) Not detected Coronavirus OC43 (PCR) Not detected Coronavirus HKU1 (PCR) Not detected Coronavirus 229E (PCR) Not detected SARS-CoV-2 (PCR) Not detected Coronavirus NL63 (PCR) Not detected Human Metapneumovir PCR Not detected Influenza A (H1) PCR Not detected Influ A (H1N1/09) PCR Not detected Influenza A (H3) PCR Not detected Influenza Type A (PCR) Not detected Influenza Type B (PCR) Not detected M. pneumoniae (PCR) Not detected Parainfluenza 1 (PCR) Not detected Parainfluenza 2 (PCR) Not detected Parainfluenza 3 (PCR) Not detected Parainfluenza 4 (PCR) Not detected RSV (PCR) Not detected Entero/Rhino (PCR) Not detected Preliminary micro results at discharge 10/21/24 Unknown Sputum Culture - Preliminary Sputum - Expectorated Sputum DS: Diagnosis Discharge Diagnosis (1) Lung mass: Status: Acute Code(s): R91.8 - Other nonspecific abnormal finding of lung field (2) Productive cough: Status: Acute Code(s): R05.8 - Other specified cough (3) Subclavian artery thrombosis: Status: Acute Code(s): I74.8 - Embolism and thrombosis of other arteries (4) Hilar lymphadenopathy: Status: Acute Code(s): R59.0 - Localized enlarged lymph nodes (5) Mediastinal lymphadenopathy: Status: Acute Code(s): R59.0 - Localized enlarged lymph nodes Meds Home Medications and Allergies Home Medications ?Medication ?Instructions ?Recorded ?Confirmed ?Type albuterol sulfate 2.5 mg/3 mL 2.5 mg inhalation Q6HP PRN 12/29/18 10/20/24 History (0.083 %) solution for nebulization Shortness Of Breath buprenorphine 8 mg-naloxone 2 mg 2 film sublingual DAILY 10/20/24 10/20/24 History sublingual film clopidogrel 75 mg tablet 75 mg PO DAILY 10/20/24 10/20/24 History gabapentin 800 mg tablet 800 mg PO TID 10/20/24 10/20/24 History levothyroxine 25 mcg tablet 25 mcg PO DAILYDM 10/20/24 10/20/24 History losartan 50 mg tablet 75 mg PO DAILY 10/20/24 10/20/24 History rosuvastatin 20 mg tablet 20 mg PO DAILY 10/20/24 10/20/24 History aspirin 81 mg tablet,delayed 81 mg PO DAILY 30 days #30 tabs 10/22/24 Rx release enoxaparin 60 mg/0.6 mL 50 mg (0.5 mL) SQ Q12H 15 days #30 10/22/24 Rx subcutaneous syringe ea fluticasone fur. 100 mcg-umeclid 1 inh inhalation DAILY #60 ea 10/22/24 Rx 62.5 mcg-vilant 25 mcg inhalat.powder (Trelegy Ellipta) levofloxacin 750 mg tablet 750 mg PO Q48H 4 days #2 tabs 10/22/24 Rx metoprolol succinate 25 mg 25 mg PO DAILY #0 tabs 10/22/24 Rx tablet,extended release 24 hr prednisone 20 mg tablet 40 mg (2 x 20 mg) PO DAILY 3 days 10/22/24 Rx #6 tabs New Prescriptions to Start Prescriptions: evangelina Ribeiro,Garry enoxaparin Quintin,Garry [id number] [Trelegy Ellipta] Quintin,Garry levofloxacin Quintin,Garry prednisone Garry Ribeiro Allergies Allergy/AdvReac Type Severity Reaction Status Date / Time Sulfa (Sulfonamide Allergy Mild Anaphylaxis Verified 11/10/23 09:19 Antibiotics) Discharge Plan Disposition Patient Disposition: Home Health Service Condition: Fair Discharge Order Discharge Orders: Discharge Order (Routine); Ordered 10/22/24 Ordered By: Garry Ribeiro Follow up Plan Follow up with: Josafat De La Vega PA [Physician [employer], Cardiology] - 11/05/24 1:45 pm Radha Cesar APRN [Primary Care Provider, Medical] - 10/26/24 1:30 pm Laquita Mcdonnell MD [Physician, Pulmonology] - 11/08/24 11:40 am Prescriptions/Medication Reconciliation: New aspirin 81 mg Tablet,Delayed Release (Dr/Ec) 81 mg PO DAILY 30 Days Qty: 30 0RF enoxaparin 60 mg/0.6 mL Syringe 50 mg SQ Q12H 15 Days Qty: 30 0RF Trelegy Ellipta 100-62.5-25 mcg Blister With Device 1 inh inhalation DAILY Qty: 60 0RF levofloxacin 750 mg Tablet 750 mg PO Q48H 4 Days Qty: 2 0RF Rx Instructions: first dose 10/23/24 prednisone 20 mg Tablet 40 mg PO DAILY 3 Days Qty: 6 0RF metoprolol succinate 25 mg Tablet Extended Release 24 Hr 25 mg PO DAILY Qty: 0 0RF Continued albuterol sulfate 2.5 MG/NEB solution for nebulization 2.5 mg INHALATION Q6HP PRN (Reason: Shortness Of Breath) gabapentin 800 mg tablet 800 mg PO TID Patient Comments: TAKE 1 TABLET 3 TIMES EACH DAY buprenorphine-naloxone 8-2 mg film 2 film sublingual DAILY Patient Comments: PLACE 2 FILMS UNDER THE TONGUE AND ALLOW TO DISSOLVE 1 TIME EACH DAY losartan 50 mg tablet 75 mg PO DAILY Patient Comments: TAKE 1 AND 1/2 TABLET 1 TIME EACH DAY clopidogrel 75 mg tablet 75 mg PO DAILY Patient Comments: TAKE 1 TABLET 1 TIME EACH DAY levothyroxine 25 mcg tablet 25 mcg PO DAILYDM Patient Comments: TAKE 1 TABLET 1 TIME EACH DAY rosuvastatin 20 mg tablet 20 mg PO DAILY Patient Comments: TAKE 1 TABLET 1 TIME EACH DAY Discontinued metoprolol succinate 25 mg tablet extended release 24 hr 25 mg PO DAILY Patient Comments: TAKE 1 TABLET 1 TIME EACH DAY Problem Reconciliation Problems Reviewed?: Yes Patient Discharge Instructions ACTIVITY: Continue current activity DIET: continue same diet Patient Instructions: DI for Cough -- Adult, DI for Hyponatremia, DI for Chest Pain, Stop Light COPD Print Language: Occitan Providers Primary Care Provider: Radha Cesar Admit Provider: Darek Ross Attending Provider: Darek Ross
--- NOTE | 2024-10-22 15:13 | PC.NURSE ---
pt ambulated in the room. o2 saturation maintained 90-91% on room air.
--- NOTE | 2024-10-22 15:34 | EXP.CARD.CON ---
History of Present Illness History of Present Illness Consult date: 10/22/24 Chief complaint: weakness, JORDAN History of present illness: 69-year-old white female established patient last seen in June of this year. She has extensive CV history including drug-eluting stents 2020, right CEA, AAA with a stent graft, iliac stenting 2020, ongoing tobacco use. Presented to the emergency room on October 20 with 1 week of worsening weakness dyspnea on exertion and hypoxia. EKG showed inferolateral ST depression, flat trop elevation at 0.04 x3, elevated proBNP, bedside EF normal, CTA chest showed growing 4 cm spiculated mass right upper lobe with mediastinal lymphadenopathy and possible mets to left lower lobe, CTA neck showed high-grade stenosis with near complete occlusion due to thrombus left subclavian artery extending into origin of left vertebral artery. She has moderate to severe left internal carotid artery stenosis with calcific plaque at the origin of bilateral vertebral arteries with severe focal narrowing. Patient was admitted for further workup and management. [facility] Disclaimer: The information contained in this section may have been updated after the patient was seen, as this information can be updated by other users. Medical History Mediastinal lymphadenopathy Hilar lymphadenopathy Restless sleeper Snoring Smoker Palpitations Tachycardia HTN (hypertension), benign HLD (hyperlipidemia) Carotid stenosis Ligamentum flavum hypertrophy Bulging of lumbar intervertebral disc Facet hypertrophy of lumbar region Anxiety Surgical History H/O breast biopsy Hx of tonsillectomy Family History Other Anxiety Social History Smoking Status: Current every day smoker tobacco type: cigarettes packs per day: 1 second hand exposure: Yes alcohol intake: never substance use type: denies use current occupational status: retired Travel in the last 8 weeks?: None household members: none housing: apartment number of children: 4 caffeine: No Review of Systems Constitutional Constitutional: Reports fatigue and Reports weakness Eyes Eyes: Denies loss of vision ENT Ears, Nose, Mouth, and Throat: Denies hearing loss and Denies vertigo *Cardiovascular Cardiovascular: Denies chest pain, Reports dyspnea and Denies syncope *Respiratory Respiratory: Denies cough and Reports dyspnea *Gastrointestinal Gastrointestinal: Denies change in stool character, Denies nausea and Denies vomiting *Musculoskeletal Musculoskeletal: Denies muscle weakness Integumentary/Breasts Skin/Breast: Denies changing lesions *Neurologic Neurologic: Denies loss of vision, Denies syncope, Denies vertigo and Reports weakness Endocrine Endocrine: Reports fatigue Exam Data for Last 24 hours Vital signs and Labs for Last 24 Hours: Temp Pulse Resp BP Pulse Ox O2 Del Method O2 Flow Rate 98.1 F 77 16 143/78 H 90 L Room Air 2 10/22/24 12:00 10/22/24 12:00 10/22/24 12:00 10/22/24 12:00 10/22/24 12:00 10/22/24 15:00 10/22/24 10:43 FiO2 28 10/21/24 20:18 Laboratory Results - last 24 hr 10/21/24 17:38: Chlamy pneumoniae PCR Not detected, Adenovirus (PCR) Not detected, B. pertussis DNA (PCR) Not detected, Coronavirus OC43 (PCR) Not detected, Coronavirus HKU1 (PCR) Not detected, Coronavirus 229E (PCR) Not detected, SARS-CoV-2 (PCR) Not detected, Coronavirus NL63 (PCR) Not detected, Human Metapneumovir PCR Not detected, Influenza A (H1) PCR Not detected, Influ A (H1N1/09) PCR Not detected, Influenza A (H3) PCR Not detected, Influenza Type A (PCR) Not detected, Influenza Type B (PCR) Not detected, M. pneumoniae (PCR) Not detected, Parainfluenza 1 (PCR) Not detected, Parainfluenza 2 (PCR) Not detected, Parainfluenza 3 (PCR) Not detected, Parainfluenza 4 (PCR) Not detected, RSV (PCR) Not detected, Entero/Rhino (PCR) Not detected 10/22/24 05:35: WBC 6.9 D, RBC 4.59, Hgb 11.7 L, Hct 38.3, MCV 83.4, MCH 25.5 L, MCHC 30.5 L, RDW 13.9, Plt Count 213, MPV 8.9, Neut % (Auto) 54.5, Lymph % (Auto) 32.9, [place] % (Auto) 11.0 H, Eos % (Auto) 0.4, Baso % (Auto) 0.3, Neut # (Auto) 3.8, Lymph # (Auto) 2.3, [place] # (Auto) 0.8, Eos # (Auto) 0.0, Baso # (Auto) 0.0, Sodium 134 L, Potassium 4.4, Chloride 98, Carbon Dioxide 35 H, Anion Gap 5.4, BUN 14, Creatinine 0.70 D, Estimated Creat Clear 40, Estimated GFR 83, Est GFR ( Amer) 100 D, Glucose 93, Calcium 8.6, Magnesium 1.9, Total Bilirubin 0.2, AST 30, ALT 9 L, Alkaline Phosphatase 69, Total Protein 6.7, Albumin 3.3 L, Globulin 3.4 H, Albumin/Globulin Ratio 1.0 L I & O for Last 24 hours: Intake & Output 10/19/24 10/20/24 10/21/24 10/22/24 23:59 23:59 23:59 23:59 Intake Total 240 / 590 590 / 1090 860 / 860 Output Total 675 / 675 1750 / 2000 250 / 250 Balance -435 / -85 -1160 / -910 610 / 610 Weight 112 lb 106 lb 9.6 oz 108 lb 108 lb Microbiology Reports for the Last 24 Hours: Microbiology 10/21/24 Unknown Sputum - Expectorated Sputum Gram Stain - Final 10/21/24 Unknown Sputum - Expectorated Sputum Sputum Culture - Preliminary Constitutional Constitutional: no acute distress and cooperative Comments: Frail-appearing *Routine HEENT Exam Eye: Present PERRL *Routine Respiratory Exam Respiratory: Present CTA bilaterally; Absent accessory muscle use, wheezes or crackles *Routine Cardiovascular Exam Cardiovascular: Present RRR, Normal S1 and Normal S2; Absent murmur, gallop or rubs *Routine Abdominal Exam Abdominal: Present soft; Absent tenderness *Routine Extremities Exam Extremities: Present pulses intact; Absent cyanosis or edema *Routine Skin Exam Skin: Present intact; Absent erythema or wounds *Routine Neurological Exam Neurological: Present alert and oriented X3 Routine Psychiatric Exam Psychiatric: Present cooperative Meds Home Medications and Allergies Home Medications ?Medication ?Instructions ?Recorded ?Confirmed ?Type albuterol sulfate 2.5 mg/3 mL 2.5 mg inhalation Q6HP PRN 12/29/18 10/20/24 History (0.083 %) solution for nebulization Shortness Of Breath buprenorphine 8 mg-naloxone 2 mg 2 film sublingual DAILY 10/20/24 10/20/24 History sublingual film clopidogrel 75 mg tablet 75 mg PO DAILY 10/20/24 10/20/24 History gabapentin 800 mg tablet 800 mg PO TID 10/20/24 10/20/24 History levothyroxine 25 mcg tablet 25 mcg PO DAILYDM 10/20/24 10/20/24 History losartan 50 mg tablet 75 mg PO DAILY 10/20/24 10/20/24 History rosuvastatin 20 mg tablet 20 mg PO DAILY 10/20/24 10/20/24 History aspirin 81 mg tablet,delayed 81 mg PO DAILY 30 days #30 tabs 10/22/24 Rx release enoxaparin 60 mg/0.6 mL 50 mg (0.5 mL) SQ Q12H 15 days #30 10/22/24 Rx subcutaneous syringe ea fluticasone fur. 100 mcg-umeclid 1 inh inhalation DAILY #60 ea 10/22/24 Rx 62.5 mcg-vilant 25 mcg inhalat.powder (Trelegy Ellipta) levofloxacin 750 mg tablet 750 mg PO Q48H 4 days #2 tabs 10/22/24 Rx metoprolol succinate 25 mg 25 mg PO DAILY #0 tabs 10/22/24 Rx tablet,extended release 24 hr prednisone 20 mg tablet 40 mg (2 x 20 mg) PO DAILY 3 days 10/22/24 Rx #6 tabs New Prescriptions to Start Prescriptions: evangelina Ribeiro,Garry enoxaparin Quintin,Garry [id number] [Trelegy Ellipta] Garry Ribeiro levofloxacin Quintin,Garry prednisone Garry Ribeiro Allergies Allergy/AdvReac Type Severity Reaction Status Date / Time Sulfa (Sulfonamide Allergy Mild Anaphylaxis Verified 11/10/23 09:19 Antibiotics) Assessment and Plan *Assessment and plan (1) Lung mass: Status: Acute Category: Medical Code(s): R91.8 - Other nonspecific abnormal finding of lung field (2) Subclavian artery thrombosis: Status: Acute Category: Medical Code(s): I74.8 - Embolism and thrombosis of other arteries (3) Coronary artery disease: Status: Chronic Qualifiers: Coronary Disease-Associated Artery/Lesion type: [place] artery [place] vs. transplanted heart: [place] heart Associated angina: without angina Qualified Code(s): I25.10 - Atherosclerotic heart disease of [place] coronary artery without angina pectoris Category: Medical Code(s): I25.10 - Atherosclerotic heart disease of [place] coronary artery without angina pectoris Plan Left subclavian artery stenosis with thrombosis - Recommend treatment with OAC and statin - Pulmonology recommends Lovenox for now due to pending bronchoscopy which is okay - Will need outpatient referral to vascular surgery given involvement of bilateral vertebral arteries and internal carotid artery Multivessel CAD - Known diagnosis, last stenting 2020 - Chronic mild elevation troponin here at 0.04 x 3 - Patient denies angina - EKG with diffuse ST abnormalities which appear unchanged from prior - Bedside echo in ED shows preserved EF - Patient would likely benefit from repeat ischemic evaluation but with new large lung mass and pending procedures we will hold for now Carotid artery stenosis - Patient is status post right CEA - Her left internal carotid artery has 60% stenosis here - Recommend DAPT and statin - Outpatient vascular evaluation AAA status post stent graft -Continue BP control, DAPT, statin PAD status post iliac stenting 2020 -Patient denies claudication -Continue DAPT and statin Lung mass, presumed lung cancer with mets - CTA chest here shows enlarging 4 cm spiculated mass right upper lobe with mediastinal lymphadenopathy and possible mets to left lower lobe - Pulmonology evaluated today and plans for outpatient bronchoscopy -Further plans pending results but this is presumed cancer Ongoing tobacco abuse - Complicates her ASCVD, COPD, lung cancer - Recommend complete tobacco cessation Pt needs prompt CV and Vascular office f/u post discharge.
--- NOTE | 2024-10-23 10:14 | SW/DCPLANNER ---
Spoke with patient on the phone. Patient stated that she is doing well. Patient stated that she aware of her upcoming appointments. Patient stated that she was able to get her medicine from clinic pharmacy. Patient stated that she has no concerns or questions at this time. Sherie Cooney
[2024-10-23 14:59] LABS: POC Glucose,Bedside 110 (70-110)
[2024-10-26 14:20] LABS: Legionella pneumophila Urinary Negative (Negative)
== END 2024-10-22 19:07 | disposition home health service (06) ==
LOC: ER 10-20 03:05 → 2ND 10-20 03:27
PROVIDERS: Student in an Organized Health Care Education/Training Program; Admitting Provider Student in an Organized Health Care Education/Training Program; Emergency Provider Emergency Medicine; PCP Nurse Practitioner; Visit Provider Student in an Organized Health Care Education/Training Program
DX: E87.1 Hypo-osmolality and hyponatremia (principal); R91.8 Other nonspecific abnormal finding of lung field; I74.8 Embolism and thrombosis of other arteries; I25.10 Atherosclerotic heart disease of native coronary artery without angina pectoris; I70.8 Atherosclerosis of other arteries; I65.22 Occlusion and stenosis of left carotid artery; I71.40 Abdominal aortic aneurysm, without rupture, unspecified; I73.9 Peripheral vascular disease, unspecified; R59.0 Localized enlarged lymph nodes; J44.1 Chronic obstructive pulmonary disease with (acute) exacerbation; G62.9 Polyneuropathy, unspecified; I45.2 Bifascicular block; E87.70 Fluid overload, unspecified; E05.90 Thyrotoxicosis, unspecified without thyrotoxic crisis or storm; R79.89 Other specified abnormal findings of blood chemistry; I10 Essential (primary) hypertension; E78.5 Hyperlipidemia, unspecified; F41.9 Anxiety disorder, unspecified; F17.210 Nicotine dependence, cigarettes, uncomplicated; I25.2 Old myocardial infarction; Z95.5 Presence of coronary angioplasty implant and graft; Z88.2 Allergy status to sulfonamides; Z99.81 Dependence on supplemental oxygen; Z95.828 Presence of other vascular implants and grafts; Z79.83 Long term (current) use of bisphosphonates; Z79.02 Long term (current) use of antithrombotics/antiplatelets; Z79.82 Long term (current) use of aspirin; Z79.890 Hormone replacement therapy; Z79.899 Other long term (current) drug therapy
CPT/HCPCS: 0223U; 36415; 70450; 70496; 70498; 71046; 71275; 80053; 80061; 81001; 82803; 82962; 83605; 83735; 83880; 84484; 85025; 85378; 85610; 86803; 87070; 87205; 87389; 87449; 87522; 87633; 93005; 94640; 96372; 96374; 96375; 96376; 97162; 97166; 99291; G0378; J0456; J0574; J1650; J1938; J2919; J7050; Q9967

== ENCOUNTER 2024-10-27 13:16 | Emergency (ER) | payer MEDICARE, MEDICAID, SELFPAY ==
--- OUTSIDE RECORDS SUMMARY | 2009-03-19 03:30 | XMS_ITS | Continuity of Care Document ---
Author Organization [facility] Address [address] [place] [address] Phone Care Team Providers Care Filler Shaker Name Role Phone Unavailable Unavailable Unavailable Procedures Procedure Date Extraction erupted tooth or exposed root Extraction erupted tooth or exposed root Periapical first film Palliative tx dental pain minor proc Jan Advance Directives Directive Yes / No Effective Date File Name No Information Encounters Encounter Description Practice Location Reason(s) For Visit Diagnoses Date Provider Providers Copied on Encounter [facility], [address] [place] [address] [place], [id number] tel:[phone] [facility] [place] No Information 4-200 9 No Information [facility], [address] [place] [address] Verónica Gomez [place], [id number] tel:[phone] [facility] [place] No Information 9-200 9 No Information Family History Family Member Type Diagnosis Age At Onset No Information Payers Payer name Insurance type Covered libertarian ID Authoriza tion(s) No Information Social History [...]
[2024-10-27] VITALS (10 sets, daily range): BP systolic 179–232; BP diastolic 69–109; PULSE 79–93; RESP 17–18; TEMP 36.6–36.8; O2SAT 93–98; BMI 17.6
--- NOTE | 2024-10-27 13:21 | HMH.EDGENADL ---
Discharge Plan Disposition Patient Disposition: Home, Self-Care Condition: Good Prescriptions Prescriptions: No Action albuterol sulfate 2.5 MG/NEB solution for nebulization 2.5 mg INHALATION Q6HP PRN (Reason: Shortness Of Breath) gabapentin 800 mg tablet 800 mg PO TID Patient Comments: TAKE 1 TABLET 3 TIMES EACH DAY buprenorphine-naloxone 8-2 mg film 2 film sublingual DAILY Patient Comments: PLACE 2 FILMS UNDER THE TONGUE AND ALLOW TO DISSOLVE 1 TIME EACH DAY losartan 50 mg tablet 75 mg PO DAILY Patient Comments: TAKE 1 AND 1/2 TABLET 1 TIME EACH DAY clopidogrel 75 mg tablet 75 mg PO DAILY Patient Comments: TAKE 1 TABLET 1 TIME EACH DAY levothyroxine 25 mcg tablet 25 mcg PO DAILYDM Patient Comments: TAKE 1 TABLET 1 TIME EACH DAY rosuvastatin 20 mg tablet 20 mg PO DAILY Patient Comments: TAKE 1 TABLET 1 TIME EACH DAY aspirin 81 mg Tablet,Delayed Release (Dr/Ec) 81 mg PO DAILY 30 Days Qty: 30 0RF enoxaparin 60 mg/0.6 mL Syringe 50 mg SQ Q12H 15 Days Qty: 30 0RF Trelegy Ellipta 100-62.5-25 mcg Blister With Device 1 inh inhalation DAILY Qty: 60 0RF levofloxacin 750 mg Tablet 750 mg PO Q48H 4 Days Qty: 2 0RF Rx Instructions: first dose 10/23/24 prednisone 20 mg Tablet 40 mg PO DAILY 3 Days Qty: 6 0RF metoprolol succinate 25 mg Tablet Extended Release 24 Hr 25 mg PO DAILY Qty: 0 0RF Referrals Follow up/Referrals: Radha Cesar APRN [Primary Care Provider, Medical] - See instructions Activity Restrictions/Add. Instructions Additional Instructions/Restrictions: As we discussed please keep your appointment with pulmonology as scheduled. If you have any hemoptysis of blood clots protracted bleeding acute pain return to the emergency department immediately. I strongly recommend complete smoking cessation. If you have continuing symptoms please notify the pulmonology office and if it gets worse return to the ER. Clinical Impressions Clinical Impression: Hemoptysis, Mass of right lung Print Language Print Language: [place] Discharge ED Provider: Markus Byrne General Adult HPI <TREMAYNE Eng - Last Filed: 10/27/24 16:01> General Chief complaint: Recheck/Abnormal Lab/Rx Stated complaint: coughing up blood Time Seen by Provider: 10/27/24 13:21 History of Present Illness HPI narrative: Patient presents for evaluation of hemoptysis. 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 Ultimately patient was discharged home on therapeutic dose Lovenox with scheduled follow-up with pulmonology for endoscopic bronchoscopy along with FNA of the spiculated mass scheduled for the end of this month. Patient reports that over the last 24 hours that she has had blood-tinged sputum along with mixed bright red blood. Provoking event is smoking. She has curtailed her smoking significantly but not completely. She denies any shortness of breath chest pain fever chills hematochezia hematemesis hematuria dysuria dyspnea. Related Data Home Medications ?Medication ?Instructions ?Recorded ?Confirmed albuterol sulfate 2.5 mg/3 mL 2.5 mg inhalation Q6HP PRN 12/29/18 10/20/24 (0.083 %) solution for nebulization Shortness Of Breath buprenorphine 8 mg-naloxone 2 mg 2 film sublingual DAILY 10/20/24 10/20/24 sublingual film clopidogrel 75 mg tablet 75 mg PO DAILY 10/20/24 10/20/24 gabapentin 800 mg tablet 800 mg PO TID 10/20/24 10/20/24 levothyroxine 25 mcg tablet 25 mcg PO DAILYDM 10/20/24 10/20/24 losartan 50 mg tablet 75 mg PO DAILY 10/20/24 10/20/24 rosuvastatin 20 mg tablet 20 mg PO DAILY 10/20/24 10/20/24 Previous Rx's ?Medication ?Instructions ?Recorded aspirin 81 mg tablet,delayed 81 mg PO DAILY 30 days #30 tabs 10/22/24 release enoxaparin 60 mg/0.6 mL 50 mg (0.5 mL) SQ Q12H 15 days #30 10/22/24 subcutaneous syringe ea fluticasone fur. 100 mcg-umeclid 1 inh inhalation DAILY #60 ea 10/22/24 62.5 mcg-vilant 25 mcg inhalat.powder (Trelegy Ellipta) levofloxacin 750 mg tablet 750 mg PO Q48H 4 days #2 tabs 10/22/24 metoprolol succinate 25 mg 25 mg PO DAILY #0 tabs 10/22/24 tablet,extended release 24 hr prednisone 20 mg tablet 40 mg (2 x 20 mg) PO DAILY 3 days 10/22/24 #6 tabs Allergies Allergy/AdvReac Type Severity Reaction Status Date / Time Sulfa (Sulfonamide Allergy Mild Anaphylaxis Verified 11/10/23 09:19 Antibiotics) [facility] <TREMAYNE Eng - Last Filed: 10/27/24 16:01> [facility] Disclaimer: The information contained in this section may have been updated after the patient was seen, as this information can be updated by other users. Medical History Mediastinal lymphadenopathy Hilar lymphadenopathy Restless sleeper Snoring Smoker Palpitations Tachycardia HTN (hypertension), benign HLD (hyperlipidemia) Carotid stenosis Ligamentum flavum hypertrophy Bulging of lumbar intervertebral disc Facet hypertrophy of lumbar region Anxiety Surgical History H/O breast biopsy Hx of tonsillectomy Family History Other Anxiety Social History Smoking Status: Current every day smoker tobacco type: cigarettes packs per day: 1 second hand exposure: Yes alcohol intake: never substance use type: denies use current occupational status: retired Travel in the last 8 weeks?: None household members: none housing: apartment number of children: 4 caffeine: No Have you lived/traveled outside [place] in past 30 days?: No Contact w/someone who lives/traveled outside US past 30 days?: No Exposure to someone with infectious disease in past 14 days?: No Do you have a fever (greater than 100.4 F or 38 C)?: No Have you tested positive for COVID-19?: No Exposed to someone with COVID-19 in past 14 days?: No Do you have a sore throat?: No Do you have a cough?: No Do you have any weakness?: No Do you have any diarrhea?: No Are you experiencing any unusual bleeding?: No Do you have any muscle aches/pain?: No Do you have any abdominal pain?: No Are you experiencing loss of taste or smell?: No Other Medical History Have you received the Flu Vaccine for this season: No Have you received the Pneumonia Vaccine: No <TREMAYNE Eng - Last Filed: 10/27/24 16:01> ROS Obtained: Yes Systems reviewed as appropriate & no additional complaints except as documented Physical Exam <TREMAYNE Eng - Last Filed: 10/27/24 16:01> General General appearance: alert and in no apparent distress Respiratory Respiratory exam: Present normal lung sounds bilaterally Cardiovascular Cardiovascular exam: Present regular rate Neurological Exam Neurological exam: Present alert and oriented X3 Medical Decision Making <TREMAYNE Eng - Last Filed: 10/27/24 16:01> Medical Records Medical records reviewed: Yes I reviewed the patient's medical records. Screening: Per USPSTF and CDC recommendations, given the prevalence of disease in our region, it is our hospital?s policy to screen for HIV and viral Hepatitis for all patients aged 18 and over and those with ongoing risk factors. [place] Inquiry Pt receiving controlled substance: No Vital Signs: 10/27/24 13:30 10/27/24 13:35 10/27/24 13:39 Temperature 98.2 F Temperature Source Oral Pulse Rate 92 H 87 Pulse Rate [Right Radial] 93 H Respiratory Rate 18 18 18 Blood Pressure 231/109 H 224/96 H Blood Pressure [Right Arm] 217/103 H Blood Pressure Mean 146 149 Blood Pressure Mean [Right Arm] 141 Blood Pressure Source Blood Pressure Position 02 Sat by Pulse Oximetry 96 96 95 Oxygen Delivery Method Room Air Oxygen Flow Rate (LPM) 10/27/24 14:00 10/27/24 14:30 10/27/24 15:00 Temperature Temperature Source Pulse Rate 87 84 85 Pulse Rate [Right Radial] Respiratory Rate 18 18 18 Blood Pressure 232/106 H 193/75 H 184/69 H Blood Pressure [Right Arm] Blood Pressure Mean 148 134 156 Blood Pressure Mean [Right Arm] Blood Pressure Source Blood Pressure Position 02 Sat by Pulse Oximetry 98 95 98 Oxygen Delivery Method Oxygen Flow Rate (LPM) 10/27/24 15:39 10/27/24 16:00 10/27/24 16:19 Temperature 98.2 F Temperature Source Pulse Rate 86 85 79 Pulse Rate [Right Radial] Respiratory Rate 18 18 Blood Pressure 179/101 H 180/78 H 180/78 H Blood Pressure [Right Arm] Blood Pressure Mean 127 Blood Pressure Mean [Right Arm] Blood Pressure Source Blood Pressure Position 02 Sat by Pulse Oximetry 95 94 L Oxygen Delivery Method Nasal Cannula Oxygen Flow Rate (LPM) 2 10/27/24 16:21 Temperature 97.8 F Temperature Source Oral Pulse Rate 81 Pulse Rate [Right Radial] Respiratory Rate 17 Blood Pressure 180/78 H Blood Pressure [Right Arm] Blood Pressure Mean Blood Pressure Mean [Right Arm] Blood Pressure Source Automatic Cuff Blood Pressure Position Sitting 02 Sat by Pulse Oximetry Oxygen Delivery Method Room Air Oxygen Flow Rate (LPM) Lab Data Lab results reviewed: Yes I reviewed the patient's lab results. Lab Results 10/27/24 14:00: WBC 11.6 H, RBC 5.31, Hgb 13.6, Hct 43.6, MCV 82.1, MCH 25.6 L, MCHC 31.2 L, RDW 14.6, Plt Count 306, MPV 10.3, Neut % (Auto) 44.5, Lymph % (Auto) 45.2, [place] % (Auto) 7.1, Eos % (Auto) 1.7, Baso % (Auto) 0.8, Neut # (Auto) 5.2, Lymph # (Auto) 5.3 H, [place] # (Auto) 0.8, Eos # (Auto) 0.2, Baso # (Auto) 0.1, Total Counted 100, Neutrophils % (Manual) 41 L, Lymphocytes % (Manual) 51 H, Monocytes % (Manual) 7, Basophils % (Manual) 1.0, Platelet Estimate Normal, RBC Morphology Normal, PT 12.9 H, INR 1.18 H, APTT 33.9 H, Sodium 135 L, Potassium 4.0, Chloride 99, Carbon Dioxide 29, Anion Gap 11.0, BUN 15, Creatinine 0.70, Estimated Creat Clear 39, Estimated GFR 83, Est GFR ( Amer) 100, Glucose 116 H, Calcium 10.8 H, Total Bilirubin 0.5, AST 42 H, ALT 22, Alkaline Phosphatase 76, Total Protein 8.2, Albumin 4.2, Globulin 4.0 H, Albumin/Globulin Ratio 1.1 10/27/24 14:00 10/27/24 14:00 Orders (Tests/Meds): ED MEDICATIONS Discontinued Medications Generic Name Dose Route Start Last Admin Trade Name Freq PRN Reason Stop Dose Admin Iopamidol 80 ml 10/27/24 14:39 10/27/24 14:41 Iopamidol-370 (76%);100ml Bottle IV 10/27/24 14:40 80 ml ONCE ONE Administration Sodium Chloride 50 ml 10/27/24 14:39 10/27/24 14:41 0.9 % Sodium Chloride 50 Ml Vial IV 10/27/24 14:40 50 ml ONCE ONE Administration Sodium Chloride 10 ml 10/27/24 14:39 10/27/24 14:40 Sodium Chloride 0.9% 10ml Syr (Rad Only) IV 11/26/24 14:38 10 ml NEEDED PRN Administration Maintain IV Site ORDERS Category Date Time Status CT angio chest - dissection Stat Cat Scan 10/27/24 13:34 Completed CBC w/Auto Diff [Complete Blood Count Auto Diff] Stat Lab 10/27/24 14:00 Completed CMP [Comprehensive Metabolic Panel] Stat Lab 10/27/24 14:00 Completed INR [Prothrombin Time INR] Stat Lab 10/27/24 14:00 Completed PTT [Activated Partial Thrombo Time] Stat Lab 10/27/24 14:00 Completed Medical Decision Narrative: In summary patient is a 69-year-old female who presents to the emergency department for evaluation of hemoptysis. Patient is initially significantly hypertensive on arrival with a blood pressure 231/109 with a heart rate of 92 sinus rhythm on the bedside monitor breathing 18 times a minute satting at 96% on room air upon arrival, afebrile at 90.2. Physical exam is remarkable for clear breath sounds with no adventitious sounds increased work of breathing or accessory muscle use, abdomen soft nontender no rebound or guarding no rigidity.. Differential diagnosis includes alveolar leak versus pulmonary edema versus a bleeding mass etc. Initial workup will be conducted with hematologic labs and a CTA of the chest. Initial interventions were considered however patient currently is having no specific symptoms thus deferred for now. I did have an interactive discussion with Dr. Gonzalez about patient presentation SANCHEZ and management. He recommended that if patient's hemoglobin hematocrit are stable and her CTA is unchanged that he would continue therapeutic anticoagulation and plan to discharge the patient home with strict return precautions and if her workup reveals anything different to call him back with to determine best plan. Initial workup reviewed by me shows that her hemoglobin and hematocrit are indeed stable at 13.6 and 43.6 respectively with a platelet count of 306 a PT of 12.9 and INR of 1.18 and at PTT of 33.9 and the remainder of her hematologic labs are nonactionable. My informal interpretation of her CTA shows no change from her previous CTA per my informal interpretation. Please see final read for formal interpretation. Upon repeat evaluation remains hemodynamically stable and has had no episodes of hemoptysis while in the ER. Had another interactive discussion with pulmonology regarding patient's SANCHEZ and findings and plan is patient is appropriate for discharge with scheduled follow-up as already arranged continuing her therapeutic Lovenox and instructions to the patient that should she have continued symptoms to notify the pulmonology office and if she has any worsening symptoms return to the ER. Given this patient is appropriate for discharge with the aforementioned instructions and strict return precautions. I was consulted by the SAVANAH, and we discussed the complexity of problems being addressed. I approved the treatment and management plan for this patient's care in the emergency department, thus performing a substantial portion of the medical decision making. Transfer of care given to Dr. Byrne pending final CT read. On personal interpretation no invasion of spiculating mass into bronchus. Miguelina Mullins MD <Miguelina Mullins MD - Last Filed: 10/27/24 15:57> Vital Signs: 10/27/24 13:30 10/27/24 13:35 10/27/24 13:39 Temperature 98.2 F Temperature Source Oral Pulse Rate 92 H 87 Pulse Rate [Right Radial] 93 H Respiratory Rate 18 18 18 Blood Pressure 231/109 H 224/96 H Blood Pressure [Right Arm] 217/103 H Blood Pressure Mean 146 149 Blood Pressure Mean [Right Arm] 141 Blood Pressure Source Blood Pressure Position 02 Sat by Pulse Oximetry 96 96 95 Oxygen Delivery Method Room Air Oxygen Flow Rate (LPM) 10/27/24 14:00 10/27/24 14:30 10/27/24 15:00 Temperature Temperature Source Pulse Rate 87 84 85 Pulse Rate [Right Radial] Respiratory Rate 18 18 18 Blood Pressure 232/106 H 193/75 H 184/69 H Blood Pressure [Right Arm] Blood Pressure Mean 148 134 156 Blood Pressure Mean [Right Arm] Blood Pressure Source Blood Pressure Position 02 Sat by Pulse Oximetry 98 95 98 Oxygen Delivery Method Oxygen Flow Rate (LPM) 10/27/24 15:39 10/27/24 16:00 10/27/24 16:19 Temperature 98.2 F Temperature Source Pulse Rate 86 85 79 Pulse Rate [Right Radial] Respiratory Rate 18 18 Blood Pressure 179/101 H 180/78 H 180/78 H Blood Pressure [Right Arm] Blood Pressure Mean 127 Blood Pressure Mean [Right Arm] Blood Pressure Source Blood Pressure Position 02 Sat by Pulse Oximetry 95 94 L Oxygen Delivery Method Nasal Cannula Oxygen Flow Rate (LPM) 2 10/27/24 16:21 Temperature 97.8 F Temperature Source Oral Pulse Rate 81 Pulse Rate [Right Radial] Respiratory Rate 17 Blood Pressure 180/78 H Blood Pressure [Right Arm] Blood Pressure Mean Blood Pressure Mean [Right Arm] Blood Pressure Source Automatic Cuff Blood Pressure Position Sitting 02 Sat by Pulse Oximetry Oxygen Delivery Method Room Air Oxygen Flow Rate (LPM) Lab Data Lab Results 10/27/24 14:00: WBC 11.6 H, RBC 5.31, Hgb 13.6, Hct 43.6, MCV 82.1, MCH 25.6 L, MCHC 31.2 L, RDW 14.6, Plt Count 306, MPV 10.3, Neut % (Auto) 44.5, Lymph % (Auto) 45.2, [place] % (Auto) 7.1, Eos % (Auto) 1.7, Baso % (Auto) 0.8, Neut # (Auto) 5.2, Lymph # (Auto) 5.3 H, [place] # (Auto) 0.8, Eos # (Auto) 0.2, Baso # (Auto) 0.1, Total Counted 100, Neutrophils % (Manual) 41 L, Lymphocytes % (Manual) 51 H, Monocytes % (Manual) 7, Basophils % (Manual) 1.0, Platelet Estimate Normal, RBC Morphology Normal, PT 12.9 H, INR 1.18 H, APTT 33.9 H, Sodium 135 L, Potassium 4.0, Chloride 99, Carbon Dioxide 29, Anion Gap 11.0, BUN 15, Creatinine 0.70, Estimated Creat Clear 39, Estimated GFR 83, Est GFR ( Amer) 100, Glucose 116 H, Calcium 10.8 H, Total Bilirubin 0.5, AST 42 H, ALT 22, Alkaline Phosphatase 76, Total Protein 8.2, Albumin 4.2, Globulin 4.0 H, Albumin/Globulin Ratio 1.1 Orders (Tests/Meds): ED MEDICATIONS Discontinued Medications Generic Name Dose Route Start Last Admin Trade Name Kavehq PRN Reason Stop Dose Admin Iopamidol 80 ml 10/27/24 14:39 10/27/24 14:41 Iopamidol-370 (76%);100ml Bottle IV 10/27/24 14:40 80 ml ONCE ONE Administration Sodium Chloride 50 ml 10/27/24 14:39 10/27/24 14:41 0.9 % Sodium Chloride 50 Ml Vial IV 10/27/24 14:40 50 ml ONCE ONE Administration Sodium Chloride 10 ml 10/27/24 14:39 10/27/24 14:40 Sodium Chloride 0.9% 10ml Syr (Rad Only) IV 11/26/24 14:38 10 ml NEEDED PRN Administration Maintain IV Site ORDERS Category Date Time Status CT angio chest - dissection Stat Cat Scan 10/27/24 13:34 Completed CBC w/Auto Diff [Complete Blood Count Auto Diff] Stat Lab 10/27/24 14:00 Completed CMP [Comprehensive Metabolic Panel] Stat Lab 10/27/24 14:00 Completed INR [Prothrombin Time INR] Stat Lab 10/27/24 14:00 Completed PTT [Activated Partial Thrombo Time] Stat Lab 10/27/24 14:00 Completed Medical Decision Narrative: In summary patient is a 69-year-old female who presents to the emergency department for evaluation of hemoptysis. Patient is initially significantly hypertensive on arrival with a blood pressure 231/109 with a heart rate of 92 sinus rhythm on the bedside monitor breathing 18 times a minute satting at 96% on room air upon arrival, afebrile at 90.2. Physical exam is remarkable for clear breath sounds with no adventitious sounds increased work of breathing or accessory muscle use, abdomen soft nontender no rebound or guarding no rigidity.. Differential diagnosis includes alveolar leak versus pulmonary edema versus a bleeding mass etc. Initial workup will be conducted with hematologic labs and a CTA of the chest. Initial interventions were considered however patient currently is having no specific symptoms thus deferred for now. I did have an interactive discussion with Dr. Gonzalez about patient presentation SANCHEZ and management. He recommended that if patient's hemoglobin hematocrit are stable and her CTA is unchanged that he would continue therapeutic anticoagulation and plan to discharge the patient home with strict return precautions and if her workup reveals anything different to call him back with to determine best plan. Initial workup reviewed by me shows that her hemoglobin and hematocrit are indeed stable at 13.6 and 43.6 respectively with a platelet count of 306 a PT of 12.9 and INR of 1.18 and at PTT of 33.9 and the remainder of her hematologic labs are nonactionable. My informal interpretation of her CTA shows. Upon repeat evaluation [patient had acceptable resolution of symptoms, had persistent pain for which additional interventions were conducted (describe interventions), tolerated p.o., was ambulatory, etc.]. Given this [patient is appropriate for discharge at this time and will be discharged with a prescription for... The case was discussed with hospital medicine regarding management and they will admit the patient their service for continued evaluation at this time... Etc.] I was consulted by the SAVANAH, and we discussed the complexity of problems being addressed. I approved the treatment and management plan for this patient's care in the emergency department, thus performing a substantial portion of the medical decision making. Transfer of care given to Dr. Byrne pending final CT read. On personal interpretation no invasion of spiculating mass into bronchus. Miguelina Mullins MD <Markus Byrne MD - Last Filed: 10/27/24 16:29> Vital Signs: 10/27/24 13:30 10/27/24 13:35 10/27/24 13:39 Temperature 98.2 F Temperature Source Oral Pulse Rate 92 H 87 Pulse Rate [Right Radial] 93 H Respiratory Rate 18 18 18 Blood Pressure 231/109 H 224/96 H Blood Pressure [Right Arm] 217/103 H Blood Pressure Mean 146 149 Blood Pressure Mean [Right Arm] 141 Blood Pressure Source Blood Pressure Position 02 Sat by Pulse Oximetry 96 96 95 Oxygen Delivery Method Room Air Oxygen Flow Rate (LPM) 10/27/24 14:00 10/27/24 14:30 10/27/24 15:00 Temperature Temperature Source Pulse Rate 87 84 85 Pulse Rate [Right Radial] Respiratory Rate 18 18 18 Blood Pressure 232/106 H 193/75 H 184/69 H Blood Pressure [Right Arm] Blood Pressure Mean 148 134 156 Blood Pressure Mean [Right Arm] Blood Pressure Source Blood Pressure Position 02 Sat by Pulse Oximetry 98 95 98 Oxygen Delivery Method Oxygen Flow Rate (LPM) 10/27/24 15:39 10/27/24 16:00 10/27/24 16:19 Temperature 98.2 F Temperature Source Pulse Rate 86 85 79 Pulse Rate [Right Radial] Respiratory Rate 18 18 Blood Pressure 179/101 H 180/78 H 180/78 H Blood Pressure [Right Arm] Blood Pressure Mean 127 Blood Pressure Mean [Right Arm] Blood Pressure Source Blood Pressure Position 02 Sat by Pulse Oximetry 95 94 L Oxygen Delivery Method Nasal Cannula Oxygen Flow Rate (LPM) 2 10/27/24 16:21 Temperature 97.8 F Temperature Source Oral Pulse Rate 81 Pulse Rate [Right Radial] Respiratory Rate 17 Blood Pressure 180/78 H Blood Pressure [Right Arm] Blood Pressure Mean Blood Pressure Mean [Right Arm] Blood Pressure Source Automatic Cuff Blood Pressure Position Sitting 02 Sat by Pulse Oximetry Oxygen Delivery Method Room Air Oxygen Flow Rate (LPM) Lab Data Lab Results 10/27/24 14:00: WBC 11.6 H, RBC 5.31, Hgb 13.6, Hct 43.6, MCV 82.1, MCH 25.6 L, MCHC 31.2 L, RDW 14.6, Plt Count 306, MPV 10.3, Neut % (Auto) 44.5, Lymph % (Auto) 45.2, [place] % (Auto) 7.1, Eos % (Auto) 1.7, Baso % (Auto) 0.8, Neut # (Auto) 5.2, Lymph # (Auto) 5.3 H, [place] # (Auto) 0.8, Eos # (Auto) 0.2, Baso # (Auto) 0.1, Total Counted 100, Neutrophils % (Manual) 41 L, Lymphocytes % (Manual) 51 H, Monocytes % (Manual) 7, Basophils % (Manual) 1.0, Platelet Estimate Normal, RBC Morphology Normal, PT 12.9 H, INR 1.18 H, APTT 33.9 H, Sodium 135 L, Potassium 4.0, Chloride 99, Carbon Dioxide 29, Anion Gap 11.0, BUN 15, Creatinine 0.70, Estimated Creat Clear 39, Estimated GFR 83, Est GFR ( Amer) 100, Glucose 116 H, Calcium 10.8 H, Total Bilirubin 0.5, AST 42 H, ALT 22, Alkaline Phosphatase 76, Total Protein 8.2, Albumin 4.2, Globulin 4.0 H, Albumin/Globulin Ratio 1.1 Orders (Tests/Meds): ED MEDICATIONS Discontinued Medications Generic Name Dose Route Start Last Admin Trade Name Freq PRN Reason Stop Dose Admin Iopamidol 80 ml 10/27/24 14:39 10/27/24 14:41 Iopamidol-370 (76%);100ml Bottle IV 10/27/24 14:40 80 ml ONCE ONE Administration Sodium Chloride 50 ml 10/27/24 14:39 10/27/24 14:41 0.9 % Sodium Chloride 50 Ml Vial IV 10/27/24 14:40 50 ml ONCE ONE Administration Sodium Chloride 10 ml 10/27/24 14:39 10/27/24 14:40 Sodium Chloride 0.9% 10ml Syr (Rad Only) IV 11/26/24 14:38 10 ml NEEDED PRN Administration Maintain IV Site ORDERS Category Date Time Status CT angio chest - dissection Stat Cat Scan 10/27/24 13:34 Completed CBC w/Auto Diff [Complete Blood Count Auto Diff] Stat Lab 10/27/24 14:00 Completed CMP [Comprehensive Metabolic Panel] Stat Lab 10/27/24 14:00 Completed INR [Prothrombin Time INR] Stat Lab 10/27/24 14:00 Completed PTT [Activated Partial Thrombo Time] Stat Lab 10/27/24 14:00 Completed Medical Decision Narrative: In summary patient is a 69-year-old female who presents to the emergency department for evaluation of hemoptysis. Patient is initially significantly hypertensive on arrival with a blood pressure 231/109 with a heart rate of 92 sinus rhythm on the bedside monitor breathing 18 times a minute satting at 96% on room air upon arrival, afebrile at 90.2. Physical exam is remarkable for clear breath sounds with no adventitious sounds increased work of breathing or accessory muscle use, abdomen soft nontender no rebound or guarding no rigidity.. Differential diagnosis includes alveolar leak versus pulmonary edema versus a bleeding mass etc. Initial workup will be conducted with hematologic labs and a CTA of the chest. Initial interventions were considered however patient currently is having no specific symptoms thus deferred for now. I did have an interactive discussion with Dr. Gonzalez about patient presentation SANCHEZ and management. He recommended that if patient's hemoglobin hematocrit are stable and her CTA is unchanged that he would continue therapeutic anticoagulation and plan to discharge the patient home with strict return precautions and if her workup reveals anything different to call him back with to determine best plan. Initial workup reviewed by me shows that her hemoglobin and hematocrit are indeed stable at 13.6 and 43.6 respectively with a platelet count of 306 a PT of 12.9 and INR of 1.18 and at PTT of 33.9 and the remainder of her hematologic labs are nonactionable. My informal interpretation of her CTA shows no change from her previous CTA per my informal interpretation. Please see final read for formal interpretation. Upon repeat evaluation remains hemodynamically stable and has had no episodes of hemoptysis while in the ER. Had another interactive discussion with pulmonology regarding patient's SANCHEZ and findings and plan is patient is appropriate for discharge with scheduled follow-up as already arranged continuing her therapeutic Lovenox and instructions to the patient that should she have continued symptoms to notify the pulmonology office and if she has any worsening symptoms return to the ER. Given this patient is appropriate for discharge with the aforementioned instructions and strict return precautions. I was consulted by the SAVANAH, and we discussed the complexity of problems being addressed. I approved the treatment and management plan for this patient's care in the emergency department, thus performing a substantial portion of the medical decision making. Transfer of care given to Dr. Byrne pending final CT read. On personal interpretation no invasion of spiculating mass into bronchus. Miguelina Mullins MD I was consulted by the SAVANAH, and we discussed the complexity of the problems being addressed. I approved the treatment and management plan for this patient's care in the Emergency Department, thus performing a substantive portion of the medical decision making. Markus Byrne MD Critical Care <TREMAYNE Eng - Last Filed: 10/27/24 16:01> Critical Care Time Critical Care Time: Yes Attestation: On 10/27/24, the high probability of a clinically significant, sudden or life threatening deterioration of the following system(s) required my full and direct attention, intervention and personal management. The time I documented below is in addition to time spent performing reported procedures but includes the following listed in this critical care notation. Total Time Total Critical Care Time: 30
--- NOTE | 2024-10-27 13:34 | CT_ITS ---
PROCEDURE INFORMATION: Exam: CTA Chest With Contrast Exam date and time: 10/27/2024 2:40 PM Age: 69 years old Clinical indication: Other: Hemoptysis; Additional info: Hemoptysis, new dx lung mass, therapeutic lovenox TECHNIQUE: Imaging protocol: Computed tomographic angiography of the chest with contrast. Exam focused on the arteries. 3D rendering (Not supervised by radiologist): MIP and/or 3D reconstructed images were created by the technologist. Radiation optimization: All CT scans at this facility use at least one of these dose optimization techniques: automated exposure control; mA and/or kV adjustment per patient size (includes targeted exams where dose is matched to clinical indication); or iterative reconstruction. Contrast material: ISOVUE; Contrast volume: 80 ml; Contrast route: INTRAVENOUS (IV); COMPARISON: CT ANGIO CHEST PE PROTOCOL 10/20/2024 1:30 AM FINDINGS: Pulmonary arteries: No evidence of pulmonary embolus to the segmental level. Aorta: [place] Infrarenal abdominal aortic aneurysm measures 4 cm. Patient is status post aortic bypass. No dissection of the aorta. Lungs: Again noted is a spiculated mass in the posterior aspect of the right upper lobe. It measures 3.6 x 2.4 x 3.9 cm. It is most consistent with lung cancer... Consolidation in the lingula may represent atelectasis or pneumonia. 8.5 mm pulmonary nodule in superior segment of the left lower lobe was present on the prior study. Additional. Calcified granulomas in the left lower lobe consistent with prior granulomatous disease Pleural spaces: Unremarkable. No pneumothorax. No pleural effusion. Heart: There is calcification of the aortic valve annulus. There is calcification of the mitral valve annulus. Coronary arteries: Coronary artery calcifications may indicate coronary artery disease. Lymph nodes: Unremarkable. No enlarged lymph nodes. Bones/joints: Stable compression fracture at L1 No acute fracture. Soft tissues: Unremarkable. IMPRESSION: 1. Again noted is a spiculated mass in the posterior aspect of the right upper lobe. It measures 3.6 x 2.4 x 3.9 cm. It is most consistent with lung cancer... 2. No evidence of pulmonary embolus to the segmental level. 3. [place] Infrarenal abdominal aortic aneurysm measures 4 cm. Patient is status post aortic bypass. 4. Consolidation in the lingula may represent atelectasis or pneumonia. 5. 8.5 mm pulmonary nodule in superior segment of the left lower lobe was present on the prior study.
--- OUTSIDE RECORDS SUMMARY | 2024-10-27 13:39 | XMS_ITS | Encounter Summary ---
Author Organization [employer] Address [address] [place] [address] Care Team Providers Care Development And Housing Director Name Role Phone Unavailable Primary Care Provider Unavailabl e Encounter Details Date Type Department Care Team (Late st Contact Info) Description 07/02/2021 Transcribed Document [facility] [place] [facility] [place] [address] ProviderMorteza MD [address] [place] [address] Social History Tobacco Use Types Packs/Day [...] - Historical Provider, - 07/02/2021 11:03 AM SECTIONAL BELT MOLD ASSEMBLER Evaluation, Physical Therapy Entered On: 07/03/2021 11:34 [...] her breathing. 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 [...] TARIK SHEPARD, PT - 07/03/2021 11:22 EST Electronically signed by Deepak [facility] Conversion Cash Application Clerk Cerner at 08/31/2022 9:54 PM CDT documented in this encounter Plan of Treatment Not on file documented as of this encounter Visit Diagnoses Not on filedocumented in this encounter
--- OUTSIDE RECORDS SUMMARY | 2024-10-27 13:39 | XMS_ITS | Encounter Summary ---
Author Organization [employer] Address [address] [address] Care Team Providers Care Farm Machine Operator Name Role Phone Unavailable Primary Care Provider Unavailabl e Encounter Details Date Type Department Care Team (Late st Contact Info) Description 06/29/2021 Transcribed Document [facility] [place] [facility] [place] [address] ProviderMorteza MD [facility] [place] [address] Social History Tobacco Use Types [...] - Historical ProviderMD - 06/29/2021 1:26 PM ACCOUNT SUPPORT MANAGER UM Authorization Entered On: 06/29/2021 13:26 EST Performed On: 06/29/2021 13:26 EST by CRISTIAN ALVAREZ Level Designer Primary Insurance Authorization Authorization and Policy Numbers : Insurance 1 Health Plan: [employer] CHOICE PPO Policy Number: [id number] Authorization Number: Insurance Primary Name : Jeancarlos Ryan [id number] Authorization Status-Primary : Notification only Auth/Referral Contact Name-Primary : Romaine Richy Authorization Number-Primary : [id number] Authorized Service Begin Date-Primary : 07/02/2021 EST Authorization Comments-Primary : per ETHAN [employer] Choice approved INPT auth# [id number] Historical Authorization Comments-Primary : No Authorization Comments Found CRISTIAN ALVAREZ, Level Designer - 06/29/2021 13:26 EST Electronically signed by Benjamin Sotelo Conversion Customer Service Supervisor Cerner at 08/31/2022 9:36 PM CDT documented in this encounter Plan of Treatment Not on file documented as of this encounter Visit Diagnoses Not on filedocumented in this encounter
--- OUTSIDE RECORDS SUMMARY | 2024-10-27 13:39 | XMS_ITS | Encounter Summary ---
Author Organization [employer] Address [address] [place] [address] Care Team Providers Care Museum Security Chief Name Role Phone Unavailable Primary Care Provider Unavailabl e Encounter Details Date Type Department Care Team (Late st Contact Info) Description 07/03/2021 Transcribed Document [facility] [place] [facility] [place] [address] ProviderMorteza MD [address] [place] [id number] Social History Tobacco Use Types Packs/Day Years [...] - Historical ProviderMD - 07/03/2021 10:28 AM TUMBLERS SUPERVISOR Final Discharge Planning Entered On: 07/03/2021 10:29 EST Performed On: 07/03/2021 10:28 EST by BENTLEY WHITE Rn-Railroad Detective Final Discharge Planning Discharge Arrangements : Patient [...] f/u appt w/PCP already made BENTLEY WHITE, Rn-Railroad Detective - 07/03/2021 10:28 EST Electronically signed by Deepak [facility] Conversion Waste Handling Technician Cerner at 08/31/2022 9:43 PM CDT documented in this encounter Plan of Treatment Not on file documented as of this encounter Visit Diagnoses Not on filedocumented in this encounter
--- OUTSIDE RECORDS SUMMARY | 2024-10-27 13:39 | XMS_ITS | Encounter Summary ---
Author Organization [employer] Address [address] [place] [address] Care Team Providers Care Sock Boarder Name Role Phone Unavailable Primary Care Provider Unavailabl e Encounter Details Date Type Department Care Team (Late st Contact Info) Description 06/29/2021 Transcribed Document [facility] [place] [address] ProviderMorteza MD [address] [place] [id number] Social History Tobacco Use Types Packs/Day Years [...] - Historical ProviderMD - 06/29/2021 10:22 AM SUCTION WORKER Spiritual Care Assessment Entered On: 07/02/2021 9:27 EST Performed On: 07/02/2021 9:03 EST by EUGENE ROONEY General Information Referred by : Patient Referral Reason Comment : PreSurgery visit Ministry Provided to : Patient, Family/Significant other EUGENE ROONEY - 07/02/2021 9:26 EST Interventions Emotional Support : Empathic/Engaged listening, Family/Significant other supported, Feelings expressed Spiritual and Mosque : Prayer shared, Spiritual/Mosque support provided Change, Adjustment and Loss : Relationships/Community/Support system discussed EUGENE ROONEY - 07/02/2021 9:26 EST Outcomes Affect/Behavior Changed : Comforted Appreciation Expressed : Yes Thoughts, Feelings and Emotions Exp. : Yes Supportive Relationships Described : Daughter at bedside EUGENE ROONEY 07/02/2021 9:26 EST Electronically signed by Benjamin Sotelo Conversion Grain Cleaner And Transfer Operator Cerner at 08/31/2022 9:44 PM CDT documented in this encounter Plan of Treatment Not on file documented as of this encounter Visit Diagnoses Not on filedocumented in this encounter
--- OUTSIDE RECORDS SUMMARY | 2024-10-27 13:39 | XMS_ITS | Encounter Summary ---
Author Organization [employer] Address [address] [place] [address] Care Team Providers Care Board Saw Runner Name Role Phone Unavailable Primary Care Provider Unavailabl e Encounter Details Date Type Department Care Team (Late st Contact Info) Description 07/02/2021 Transcribed Document [facility] [place] [facility] [address] ProviderMorteza MD [facility] [place] [address] Social History Tobacco Use Types [...] - Historical ProviderMD - 07/02/2021 1:28 PM COOKY PACKER Nutrition Assessment Entered On: 07/03/2021 11:07 EST [...] 07/03/2021 10:59 EST Electronically signed by Deepak [facility] Conversion Helpdesk Administrator Cerner at 08/31/2022 9:54 PM CDT documented in this encounter Plan of Treatment Not on file documented as of this encounter Visit Diagnoses Not on filedocumented in this encounter
--- OUTSIDE RECORDS SUMMARY | 2024-10-27 13:39 | XMS_ITS | Clinical Summary ---
Author Organization [employer] Address [address] [place] [address] Care Team Providers Care Employee Communications Specialist Name Role Phone Unavailable Primary Care Provider [...]
--- OUTSIDE RECORDS SUMMARY | 2024-10-27 13:39 | XMS_ITS | Encounter Summary ---
Author Organization [employer] Address [address] [place] [address] Care Team Providers Care Combine Mechanic Name Role Phone Unavailable Primary Care Provider Unavailabl e Encounter Details Date Type Department Care Team (Late st Contact Info) Description 07/03/2021 Transcribed Document [facility] [place] Family Medicine [facility] [place] [address] ProviderMorteza MD [address] [place] [address] Social History Tobacco Use Types Packs/Day [...] - Morteza ProviderMD - 07/03/2021 5:15 PM ONCOLOGY COORDINATOR [facility] JOSUE Fajardo [id number] ANISHA GRIER :1955 Visit Time:07/02/2021 Your Visit [...] Follow-Up Appointments Follow Up with [facility] When In 6 days 07/08/2021 EST Comments Appointment has been made - patient aware of time Where: [place] [address] [place] [address]- Follow Up with Follow up with primary care provider When Within 2 to 3 days Comments Follow up with primary care provider regarding blood pressure medications Where: Medications What How Much When Instructions Next Dose acetaminophen-hydrocodone ([place] 7.5 mg-325 mg oral tablet) 1 Tablet(s) [...] provider. This is important. Medicines ??? Take cqfv-hnf-lomwjtu and prescription medicines only as told by [...] Reviewed: 01/10/2019 Elsevier Patient Education ?? 2020 [employer] Home Oxygen Use, Adult When a [...] provider or a person from your medical screener company will show you how to use [...] it and its top with a disinfectant freight car cleaner. ? Air-dry it. ? Make sure [...] aerosol sprays. ? Rubbing alcohol. ? Hand band saw marker. ??? When you go to a restaurant [...] move around. Follow instructions from your medical screener company about how to safely secure your [...] from your health care provider and medical screener company before you travel. General safety tips ??? If you use an oxygen cylinder, make sure it is in a stand or secured to an object that will not move (fixed object). ??? If you use liquid oxygen, make sure its container is kept upright at all times. ??? If you use an oxygen concentrator: ? Tell your [employer] company. Make sure you are given priority [...] tubing. Where to find more information ??? [place] [employer]: www.lung.org/oxygen Contact a health care [...] provider or a person from your medical screener company will show you how to use [...] provider. Document Revised: 07/03/2020 Document Reviewed: 04/29/2020 ElseSOMARK Innovations Patient Education ?? 2020 [employer]. Steps to Quit Smoking Smoking tobacco [...] a prescription, and some you can buy mxdk-kmw-lzohfar. Some medicines may contain a drug called [...] encourage you. ??? Call a phone quitline (7-937-WPAS-NOW), reach out to support groups, or work [...] provider. Document Revised: 01/25/2020 Document Reviewed: 07/21/2019 [employer] Patient Education ?? 2020 [employer]. Abdominal Aortic Aneurysm Endograft Repair, Care [...] these instructions at home: Medicines ??? Take rpmj-qoz-qoabwij and prescription medicines only as told by [...] and water are not available, use hand band saw marker. ? Change your dressing as told by [...] provider. Document Revised: 04/17/2020 Document Reviewed: 04/17/2020 [employer] Patient Education ?? 2020 [employer]. Emergency Awareness and Preventative Care STROKE is [...] Assistance with quitting is available by contacting 2-937-ZXSQ-NOW. This is a free resource providing counseling, [...] range between ( 0.0 and 7.0 ) Grady #: 0.95 K/uL -- Normal range between ( 0.16 and 1.00 ) Eos #: 0.30 x10(3)/uL -- Normal range between ( 0.00 and 0.80 ) Grady %: 10.5 % -- Normal range between [...] was given the opportunity to ask questions. Patient/Test Baker Name: Patient/Test Baker Signature: Relationship to Patient: Clinician/Hospital Test Baker Signature: Date: Electronically signed by Deepak [facility] Holden Medina at 08/31/2022 9:44 PM CDT documented in this encounter Plan of Treatment Not on file documented as of this encounter Visit Diagnoses Not on filedocumented in this encounter
--- OUTSIDE RECORDS SUMMARY | 2024-10-27 13:39 | XMS_ITS | Encounter Summary ---
Author Organization [employer] Address [address] [place] [address] Care Team Providers Care Transcriber Name Role Phone Unavailable Primary Care Provider Unavailabl e Encounter Details Date Type Department Care Team (Late st Contact Info) Description 07/02/2021 Transcribed Document [facility] [place] Family Medicine [facility] [place] [address] ProviderMorteza MD [address] [place] [address] Social History Tobacco Use Types Packs/Day [...] - Historical ProviderMD - 07/02/2021 10:16 AM DRAWING SUPERVISOR [facility] Main OR PACU Summary Primary Physician: MIKA THIBODEAUX MD-SUR Finalized Date/Time: 07/02/21 12:47:26 Pt. Name: ANISHA GRIER/Sex: 1955 Female Med Rec #: [id number] Physician: MIKA THIBODEAUX MD-SUR Financial #: [id number] Pt. Type: I Room/Bed: [facility] Admit/Disch: 07/02/21 06:37:00 - Institution: [facility] Main OR PACU I Case Times Entry 1 In PACU I 07/02/21 11:15:00 Ready for PACU 07/02/21 12:15:00 Discharge Discharge from PACU 07/02/21 12:35:00 I Last Modified By: KandyNaina rand RN-PATIENT CARE BEDSIDE NON-EXEMPT 07/02/21 12:46:57 [facility] Main OR PACU Acuity Entry 1 Start Time 07/02/21 12:15:00 Stop Time 07/02/21 12:35:00 Acuity Level [facility] PACU Acuity I Last Modified By: Naina Gaitan RN-PATIENT CARE BEDSIDE NON-EXEMPT 07/02/21 12:47:24 Finalized By: Naina Gaitan RN-PATIENT CARE BEDSIDE NON-EXEMPT Document Signatures Signed By: Naina Gaitan RN-PATIENT CARE BEDSIDE NON-EXEMPT 07/02/21 12:47 Electronically signed by Deepak [facility] Conversion Bee Robber Cerner at 08/31/2022 9:55 PM CDT documented in this encounter Plan of Treatment Not on file documented as of this encounter Visit Diagnoses Not on filedocumented in this encounter
--- OUTSIDE RECORDS SUMMARY | 2024-10-27 13:39 | XMS_ITS | Encounter Summary ---
Author Organization [employer] Address [address] [place] [address] Care Team Providers Care Fisherman Helper Name Role Phone Unavailable Primary Care Provider Unavailabl e Encounter Details Date Type Department Care Team (Late st Contact Info) Description 07/03/2021 Transcribed Document [facility] [address] [place] [address] Stevan Watkins MD [address] [id number] Social History Tobacco Use Types Packs/Day Years [...] She states that pain is controlled with [place] as needed. Intake & Output Intake & [...]
--- OUTSIDE RECORDS SUMMARY | 2024-10-27 13:39 | XMS_ITS | Encounter Summary ---
Author Organization [employer] Address [address] [place] [address] Care Team Providers Care Medicare Biller Name Role Phone Unavailable Primary Care Provider Unavailabl e Encounter Details Date Type Department Care Team (Late st Contact Info) Description 07/03/2021 Transcribed Document [address] [phone] Stevan Watkins MD [address] [facility] [place] [address] Social History Tobacco Use Types Packs/Day Years [...] Oral, BID gabapentin 400 mg, Oral, TID [place] 7.5 mg-325 mg oral tablet 1 Tab, [...]
--- OUTSIDE RECORDS SUMMARY | 2024-10-27 13:39 | XMS_ITS | Referral Summary ---
Author Organization [employer] Address [address] [place] [address] Care Team Providers Care Motor Lodge Clerk Name Role Phone Unavailable Primary Care [...]
--- OUTSIDE RECORDS SUMMARY | 2024-10-27 13:39 | XMS_ITS | Encounter Summary ---
Author Organization [employer] Address [address] [place] [address] Care Team Providers Care Police Department Secretary Name Role Phone Unavailable Primary Care Provider Unavailabl e Encounter Details Date Type Department Care Team (Late st Contact Info) Description 07/03/2021 Transcribed Document [facility] [place] Family Medicine [facility] [place] [address] ProviderMorteza MD [address] [place] [address] Social History Tobacco Use Types Packs/Day [...] - Historical ProviderMD - 07/03/2021 8:52 AM STYLE ADVISOR UM Authorization Entered On: 07/03/2021 9:02 EST Performed On: 07/03/2021 8:52 EST by ROLANDO TEJADA, AZAEL-Tent WorkerTapeman Insurance Authorization Authorization and Policy Numbers : Insurance 1 Health Plan: [employer] CHOICE PPO Policy Number: [id number] Authorization Number: [id number] Insurance Primary Name : Jeancarlos Ryan [id number] Authorization Status-Primary : Notification only Auth/Referral Contact Name-Primary : Romaine Lockhart Authorization Number-Primary : [id number] Authorized Service Begin Date-Primary : 07/02/2021 EST Authorization Comments-Primary : initial clinical faxed via availity. auth# in availity. Historical Authorization Comments-Primary : Comment 1: per STAR [employer] Choice approved INPT auth# [id number] (CRISTIAN ALVAREZ, Student Activities Director 06/29/2021 13:26) ROLANDO TEJADA RN-Tent Worker - 07/03/2021 8:52 EST Secondary Insurance Authorization Authorization and Policy Numbers : Insurance 1 Health Plan: HU[employer]NA CHOICE PPO Policy Number: [id number] Authorization Number: [id number] Historical Authorization Comments-Secondary : No Authorization Comments Found ROLANDO TEJADA RN-Tent Worker - 07/03/2021 8:52 EST Electronically signed by [facility] Conversion Site Project Manager Cerner at 08/31/2022 9:38 PM CDT documented in this encounter Plan of Treatment Not on file documented as of this encounter Visit Diagnoses Not on filedocumented in this encounter
--- OUTSIDE RECORDS SUMMARY | 2024-10-27 13:39 | XMS_ITS | Encounter Summary ---
Author Organization [employer] Address [address] [place] [address] Care Team Providers Care Stove Polisher Name Role Phone Unavailable Primary Care Provider Unavailabl e Encounter Details Date Type Department Care Team (Late st Contact Info) Description 07/02/2021 Transcribed Document [facility] [place] [facility] [place] [address] ProviderMorteza MD [facility] [place], [place] [address] Social History Tobacco Use Types Packs/Day Years [...] - Historical Provider, - 07/02/2021 5:00 PM BUSINESS MANAGEMENT ANALYST Chart Check - Review Order Profile Entered On: 07/02/2021 18:36 EST Performed On: 07/02/2021 17:00 EST by Darby Troncoso, RN Chart Check Powerplans Initiated/Discontinued as Appropriate : Not applicable All Active Orders Reviewed : Yes Darby Troncoso, RN - 07/02/2021 18:36 EST Electronically signed by Deepak [facility] Conversion Calender Machine Operator Helper Cerner at 08/31/2022 9:56 PM CDT documented in this encounter Plan of Treatment Not on file documented as of this encounter Visit Diagnoses Not on filedocumented in this encounter
--- OUTSIDE RECORDS SUMMARY | 2024-10-27 13:39 | XMS_ITS | Encounter Summary ---
Author Organization [email or web address] Address [address] [place] [address] Care Team Providers Care Contract Graphic Designer Name Role Phone Unavailable Primary Care Provider Unavailabl e Encounter Details Date Type Department Care Team (Late st Contact Info) Description 07/03/2021 Transcribed Document [facility] [facility] [place] [address] [place] [address] [facility] [place] [address] Social History Tobacco Use Types Packs/Day Years [...] - Historical ProviderMD - 07/03/2021 10:09 AM SUPPLY CHAIN DESIGN MANAGER Event Note Entered On: 07/03/2021 10:10 EST Performed On: 07/03/2021 10:09 EST by BENTLEY WHITE Rn-Shipfitters SupervisorPlasticator Note Event Date/Time : 07/03/2021 10:00 EST Event Location : Other: RA sat @ rest 84% Description of Event : RA sat @ rest 84% BENTLEY WHITE Rn-Shipfitters Supervisor - 07/03/2021 10:09 EST documented in this encounter Plan of Treatment Not on file documented as of this encounter Visit Diagnoses Not on filedocumented in this encounter
--- OUTSIDE RECORDS SUMMARY | 2024-10-27 13:39 | XMS_ITS | Clinical Summary ---
Author Organization Healthcare Address [address] [id number] Care Team Providers Care Maintenance Custodian Name Role Phone Mode Meek MD Primary Care Provider [phone] Social History Tobacco Use Types Packs/Day Years [...] 2004 UKY-Zoster Vaccines (1 of 2) 2004 UFT-BWYAC-03 Vaccine (2 - 20 24-25 season) 2024 [...] this topic Insurance [employer] MEDICARE Care Teams Maintenance Custodian Relationship Specialty Start Date End Date Mode Meek MD [address] [place] [address] PCP - General 05/16/20
--- OUTSIDE RECORDS SUMMARY | 2024-10-27 13:39 | XMS_ITS | Encounter Summary ---
Author Organization [employer] i[employer] Address [address] [place] [address] Care Team Providers Care High School Admissions Representative Name Role Phone Unavailable Primary Care Provider Unavailabl e Encounter Details Date Type Department Care Team (Late st Contact Info) Description 07/03/2021 Transcribed Document [facility] [address] [place] [address] Stevan Watkins MD [address] [place] [address] Social History Tobacco Use Types Packs/Day Years [...] Signature: __Yoon Friend RN CDS Phone #: __[phone] Moderate Malnutrition (in acute illness) Energy Intake: [...] loss; moderate- severe fluid accumulation; measurably reduced echocardiograph tech strength Moderate Malnutrition (in chronic illness) Energy [...] mass loss; severe fluid accumulation; measurably reduced echocardiograph tech strength This is a permanent part of the Medical Record documented in this encounter Plan of Treatment Not on file documented as of this encounter Visit Diagnoses Not on filedocumented in this encounter
--- OUTSIDE RECORDS SUMMARY | 2024-10-27 13:39 | XMS_ITS | Encounter Summary ---
Author Organization [employer] iatives Address [address] [place] [address] Care Team Providers Care Certified Prosthetist/Orthotist Name Role Phone Unavailable Primary Care Provider Unavailabl e Encounter Details Date Type Department Care Team (Late st Contact Info) Description 06/29/2021 Transcribed Document [facility] [place] Medicine [facility] [place] [address] ProviderMorteza MD [address] [place] [address] Social History Tobacco Use Types Packs/Day [...] - Historical ProviderMD - 06/29/2021 10:10 AM INSPECTOR ALIGNING PAT Adult Entered On: 06/29/2021 10:22 EST [...] Source : Chart Height Entry Format : [place] Height, Feet : 5 ft(Converted to: 152 cm, 60 Inch) Height, Inches : 5 Inch(Converted to: 0 ft 5 Inch, 12.70 cm) Clinical Height : 165.1 cm Weight Source : Standing scale Weight Entry Format : [place] Clinical Dosing Weight : 45.09 kg Weight, Pounds : 99.2 lb Body Surface Area (BSA) : 1.47 m2 Body Mass Index : 16.5 kg/m2 (<LLOW) [place] Body Weight : 57 kg STALIN LOMAS RN - 06/30/2021 9:35 EST Health Histories Smoking Status : 10 or more cigarettes (1/2 pack or more)/day in last 30 days Smokeless Tobacco Status : Never Desires Tobacco Cessation Medication : No Reason for No Tobacco Cessation Medication : Refuses FDA approved medications Implant/Device Type, Front End Web Designer and Model : right leg stent BENTLEY [...] BENTLEY ABURTO RN - 06/29/2021 10:10 EST [place] Suicide Severity Rating Scale (C-SSRS) CSSRS Past [...] Iram Support Person/Pt Rep Contact Information : [phone] daughter [place]a [place] Want Family/Rep/Phys Notified of Admit : No Emergency Contact #1 : Mar[place]a [place] Emergency Contact #1 cell Emergency Contact #1 Relationship : daughter Emergency Contact #2 : - Emergency Contact #2 Phone Number : - Emergency Contact #2 Relationship : - Chief Complaint : to have aortic stent placed for aneurysm Information Obtained From : Patient Primary Language : Kosovan Communication Barrier : None Aerospace Project Manager Needed : No BENTLEY ABURTO RN - [...]
--- OUTSIDE RECORDS SUMMARY | 2024-10-27 13:39 | XMS_ITS | Encounter Summary ---
Author Organization [email or web address] Address [address] [place] [address] Care Team Providers Care Consultant Technology Name Role Phone Unavailable Primary Care Provider Unavailabl e Encounter Details Date Type Department Care Team (Late st Contact Info) Description 07/03/2021 Transcribed Document [facility] [place] [facility] [place] [address] ProviderMorteza MD [facility] [place] [address] Social History Tobacco Use Types [...] - Historical ProviderMD - 07/03/2021 2:51 PM LOG HOOKER Patient Education Materials Follows: Hypertension, Adult High [...] provider. This is important. Medicines ??? Take smhx-xxy-puvilty and prescription medicines only as told by [...] provider. Document Revised: 01/10/2019 Document Reviewed: 01/10/2019 [employer] Patient Education ? 2020 [employer] Caregiving Home Oxygen Use, Adult When [...] provider or a person from your medical advisor company will show you how to use [...] it and its top with a disinfectant industrial cleaner. ? Air-dry it. ? Make sure [...] aerosol sprays. ? Rubbing alcohol. ? Hand materials coordinator. ??? When you go to a restaurant [...] move around. Follow instructions from your medical advisor company about how to safely secure your [...] from your health care provider and medical advisor company before you travel. General safety tips [...] tubing. Where to find more information ??? [place] [employer]: www.lung.org/oxygen Contact a health care [...] provider or a person from your medical advisor company will show you how to use [...] provider. Document Revised: 07/03/2020 Document Reviewed: 04/29/2020 [employer] Patient Education ? 2020 [employer] Procedures Abdominal Aortic Aneurysm Endograft Repair, [...] these instructions at home: Medicines ??? Take jwkm-hnp-optrksd and prescription medicines only as told by [...] and water are not available, use hand materials coordinator. ? Change your dressing as told by [...] provider. Document Revised: 04/17/2020 Document Reviewed: 04/17/2020 [employer] Patient Education ? 2020 [employer] Pulmonary Medicine Steps to Quit Smoking [...] a prescription, and some you can buy sqzy-tld-vllcrbv. Some medicines may contain a drug called [...] encourage you. ??? Call a phone quitline (4-520-FRKW-NOW), reach out to support groups, or work [...] provider. Document Revised: 01/25/2020 Document Reviewed: 07/21/2019 [employer] Patient Education ? 2020 [employer]. documented in this encounter Plan of Treatment Not on file documented as of this encounter Visit Diagnoses Not on filedocumented in this encounter
--- OUTSIDE RECORDS SUMMARY | 2024-10-27 13:39 | XMS_ITS | Encounter Summary ---
Author Organization [employer]atives Address [address] [place] [address] Care Team Providers Care Cpc Name Role Phone Unavailable Primary Care Provider Unavailabl e Encounter Details Date Type Department Care Team (Late st Contact Info) Description 07/03/2021 Transcribed Document [facility] [address] [place] [address] Stevan Watkins MD [address] [place] [address] Social History Tobacco Use Types Packs/Day Years [...] Signature: ___Yoon Friend RN CDS Phone #: __[phone] This is a permanent part of the Medical Record documented in this encounter Plan of Treatment Not on file documented as of this encounter Visit Diagnoses Not on filedocumented in this encounter
--- OUTSIDE RECORDS SUMMARY | 2024-10-27 13:39 | XMS_ITS | Encounter Summary ---
Author Organization [employer] iatives Address [address] [place] [address] Care Team Providers Care Snap Attacher Name Role Phone Unavailable Primary Care Provider Unavailabl e Encounter Details Date Type Department Care Team (Late st Contact Info) Description 07/03/2021 Transcribed Document [place] [address] [place] [address] ProviderMorteza MD [facility] [place] [address] Social History Tobacco Use Types Packs/Day Years [...] - Historical ProviderMD - 07/03/2021 11:34 AM WEED THINNER Discharge Summary, PT Entered On: 07/03/2021 11:35 [...] 07/03/2021 11:34 EST Electronically signed by Deepak [facility] Conversion Administrative Services Manager Cerner at 08/31/2022 9:34 PM CDT documented in this encounter Plan of Treatment Not on file documented as of this encounter Visit Diagnoses Not on filedocumented in this encounter
--- OUTSIDE RECORDS SUMMARY | 2024-10-27 13:39 | XMS_ITS ---
Laboratory report Created on: October 24, 2024 RACHEL OLIVAREZ : 1955 Sex: Female Author Organization Unknown PROBLEMS Problems List Code Description RESULTS Laboratory Orders Date Order Code Test 2024-10-20 614200 HCV RT-PCR, MJ T (NON-GRAPH) Laboratory Results Date LOINC Test Value Unit Reference Range Interpre tation 2024-10-20 40820-7 HEPATITIS C QUANTITATION 1680 IU/ML 2024-10-20 59028-5 HCV LOG10 6.225 LOG10 IU/ML
--- OUTSIDE RECORDS SUMMARY | 2024-10-27 13:39 | XMS_ITS | Encounter Summary ---
Author Organization [employer] Address [address] [place] [address] Care Team Providers Care Biotechnician Name Role Phone Unavailable Primary Care Provider Unavailabl e Encounter Details Date Type Department Care Team (Late st Contact Info) Description 07/03/2021 Transcribed Document [facility] [place] [facility] [place] [address] ProviderMorteza MD [address] [place] [address] Social History Tobacco Use Types Packs/Day Years [...] - Historical ProviderMD - 07/03/2021 8:13 PM CYANIDE POT TENDER Nursing Discharge Summary Entered On: 07/03/2021 20:14 [...] oxygen Que Chao - 07/03/2021 20:13 EST documented in this encounter Plan of Treatment Not on file documented as of this encounter Visit Diagnoses Not on filedocumented in this encounter
--- OUTSIDE RECORDS SUMMARY | 2024-10-27 13:39 | XMS_ITS | Encounter Summary ---
Author Organization [employer] Address [address] [place] [address] Care Team Providers Care Transplant Nurse Name Role Phone Unavailable Primary Care Provider Unavailabl e Encounter Details Date Type Department Care Team (Late st Contact Info) Description 07/03/2021 Transcribed Document [facility] [place] [facility] [place] [address] [place] [address] ProviderMorteza MD [facility] [place] [address] Social History Tobacco Use Types Packs/Day Years [...] - Historical ProviderMD - 07/03/2021 5:14 PM MECHANIC HELPER Stroke/Warfarin Instructions Entered On: 07/03/2021 17:14 EST [...]
--- OUTSIDE RECORDS SUMMARY | 2024-10-27 13:39 | XMS_ITS | Encounter Summary ---
Author Organization [employer] Address [address] [place] [address] Care Team Providers Care Cloth Finishing Range Back Tender Name Role Phone Unavailable Primary Care Provider Unavailabl e Encounter Details Date Type Department Care Team (Late st Contact Info) Description 07/02/2021 Transcribed Document [address] [address] Stevan Watkins MD [address] [facility] [place] [address] Social History Tobacco Use Types Packs/Day Years [...] surface. This was in retrograde fashion. 8 Mongolian sheaths were placed. 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 This was successful and an 8 x 59 Homer VBX covered stent was deployed across the right common iliac artery origin. This allowed for placement of a Perclose device and a 12 Mongolian sheath within the right femoral artery. The left femoral access was also achieved and 2 Perclose devices were placed. It was difficult accessing the aorta due to severe common iliac artery stenosis. Afterwards a 16 Mongolian sheath was placed in retrograde fashion into the aorta. A 26 x 1212 graft was advanced. Abdominal aortography was performed. This was deployed below the bilateral renal arteries. The contralateral gate was next cannulated. A 12 x 14 limb was deployed into the right common iliac artery stent. The left common iliac was treated with a 12 x 10 limb elementary school librarian. This extended above the left internal iliac [...] Loss Less than 100 mL *Findings 1. Homer excluder 26 1212 main body, left limb extension 12 x 10 and right contralateral limb 12 x 14 2. 8 x 59 Homer VBX stent in right common iliac artery *Specimen(s) none Complications none Date of Service Date/Time of Service SN - Proc - Start Time: 07/02/21 10:16:00 (07/02/21 10:29:31) documented in this encounter Plan of Treatment Not on file documented as of this encounter Visit Diagnoses Not on filedocumented in this encounter
--- OUTSIDE RECORDS SUMMARY | 2024-10-27 13:40 | XMS_ITS | Encounter Summary ---
Author Organization [employer] Address [address] [place] [address] Care Team Providers Care Label Sewer Name Role Phone Unavailable Primary Care Provider Unavailabl e Encounter Details Date Type Department Care Team (Late st Contact Info) Description 07/02/2021 Transcribed Document [facility] [place] [facility] [place] [address] ProviderMorteza MD [address] [place] [id number] Social History Tobacco Use Types Packs/Day Years [...] - Historical Provider, - 07/02/2021 2:06 PM FLOODPLAIN MANAGER Initial Discharge Planning Entered On: 07/02/2021 14:13 EST Performed On: 07/02/2021 14:06 EST by BENTLEY WHITE Rn-Hat Cone Inspector Initial Assessment I Previously Documented Living Environment [...] [place] 2nd Ident. Medical Decision Maker [phone] Secondary Number of People in Class : 4 2nd Ident. Medical Decision Maker Class : Adult Children Enter Doctors Name : Mode Meek Does Patient have PCP Listed? : Yes Medical Durable Power of Electronics Parts Sales Representative Name : none Legal Guardian : No Is Guardianship Needed : No BENTLEY WHITE Rn-Hat Cone Inspector - 07/02/2021 14:06 EST Initial Assessment II Sensory and Motor Deficits : None Current Home Treatments and Equipment : Nebulizer BENTLEY WHITE Rn-Hat Cone Inspector - 07/02/2021 14:06 EST Discharge Needs I Anticipated Discharge Date : 07/03/2021 EST Anticipated Discharge To, CM : Home with family care Current Home Treatment/Equipment : Current Home Treatment/Equipment No qualifying data available. Post Acute/Home Treatments : Nebulizer Documentation Status Complete : Yes BENTLEY WHITE Rn-Hat Cone Inspector - 07/02/2021 14:06 EST Discharge Needs II Professional Skilled Services : Professional Skilled Services No qualifying data available. Needs Assistance with Transportation : No Discharge Options Discussed with Patient : Discharge transportation, DME Patient Discharge Goal : Home BENTLEY WHITE Rn-Hat Cone Inspector - 07/02/2021 14:06 EST Narrative Note Narrative [...] on Tuesday r/t work Daughter Sarah Bay [phone], no numbers or contact information for Jomar Richardson Pt's PLOF semi-independent, does not drive - dtr transports to appt and assist's pt w/bathing no hx of home health or short-term rehab DME=nebulizer PCP - Mode Meek - pt has appt on 07/08 DCP home - pt is able to stay with dtr if needed on d/c; continue to follow BENTLEY WHITE Rn-Hat Cone Inspector - 07/02/2021 14:06 EST documented in this encounter Plan of Treatment Not on file documented as of this encounter Visit Diagnoses Not on filedocumented in this encounter
--- OUTSIDE RECORDS SUMMARY | 2024-10-27 13:40 | XMS_ITS | Encounter Summary ---
Author Organization [employer] Address [address] [place] [address] Care Team Providers Care Food And Beverage Intern Name Role Phone Unavailable Primary Care Provider Unavailabl e Encounter Details Date Type Department Care Team (Late st Contact Info) Description 07/02/2021 Transcribed Document [facility] [place] [facility] [place] [address] ProviderMorteza MD [facility] [address] Social History Tobacco Use Types [...] - Historical ProviderMD - 07/02/2021 10:30 AM DIGITAL ASSET SPECIALIST [facility] Main OR Preop Summary Primary Physician: MIKA THIBODEAUX MD-SUR Finalized Date/Time: 07/02/21 09:52:28 Pt. Name: ANISHA GRIER/Sex: 1955 Female Med Rec #: [id number] Physician: MIKA THIBODEAUX MD-SUR Financial #: [id number] Pt. Type: I Room/Bed: ASA/4 Admit/Disch: 07/02/21 06:37:00 - Institution: [facility] PreOp Case Times Entry 1 In Preop 07/02/21 08:25:00 Ready for Holding n/a Room Patient Ready for 07/02/21 09:45:00 Surgery Patient Out of Preop 07/02/21 09:51:00 Patient Out of n/a Holding Room Last Modified By: Bryan Eldridge Rn 07/02/21 09:52:26 [facility] PreOp Case Times Audit 07/02/21 09:52:26 Commercial Crabber: [id number] Modifier: [id number] <+> 1 Patient Out of Preop <+> 1 Patient Ready for Surgery Finalized By: Bryan Eldridge Rn Document Signatures Signed By: Bryan Eldridge Rn 07/02/21 09:52 Electronically signed by Deepak [facility] Conversion Farm Reporter Cerner at 08/31/2022 9:38 PM CDT documented in this encounter Plan of Treatment Not on file documented as of this encounter Visit Diagnoses Not on filedocumented in this encounter
--- OUTSIDE RECORDS SUMMARY | 2024-10-27 13:40 | XMS_ITS | Data Portability ---
Author Organization [employer] 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 Plan of Treatment Reminders Order Date Submit Date Provider Last Modified By Organization Details Last Modified Time Details Appointments None recorded. Lab lipid panel, serum 2024 025 [email or web address] [address] [place] [address], [address], 5 08:12:45 CBC w/ auto diff 2024 025 [email or web address] [address] [place] [address], [address], 5 08:12:44 CMP, serum or plasma 2024 025 [facility] [address] [place] [address], [address], 5 08:12:45 TSH + free T4, serum 2024 025 [facility], [address] [place] [address], [address], 5 08:12:44 HbA1c (hemoglobin A1c), blood 2024 025 [facility] [address] [place] [address], [address], 5 08:12:46 cobalamin and folate panel, serum 2024 025 [facility]), [address] [place] [address], [address], 5 08:12:46 vitamin D, 25-hydroxy, total, serum 2024 025 [facility]), [address] [place] [address], [address], 5 08:12:47 noninvasive colorectal cancer DNA + occult blood screening, QL, stool 2024 025 [email or web address] (Cologuard Orders Only), [address], [address], [place], [address], 5 08:21:06 lipid panel, serum 2023 024 [facility]), [address] [place] [address], [address], 4 08:13:11 CBC w/ auto diff 2023 024 [facility]), [address] [place] [address], [address], 4 08:13:10 CMP, serum or plasma 2023 024 [facility]), [address] [place] [address], [address], 4 08:13:10 HbA1c (hemoglobin A1c), blood 2023 024 [facility]), [address] [place] [address], [address], 4 08:13:12 vitamin B12 + folate, serum or blood 2023 024 [facility]), [address] [place] [address], [address], 4 08:13:12 vitamin D, 25-hydroxy, total, serum 2023 024 [facility] [address] [place], [address], 4 08:13:13 TSH + free T4, serum 2023 024 [facility] [address] [place], [address], 4 08:13:09 unlisted lab - toxassure flex 19, [id number] 2023 024 [facility] [address] [place], [address], 4 20:07:28 Referral None recorded. Procedures None recorded. Surgeries None recorded. Imaging LDCT, chest, for lung cancer screening - first avail. [address] ([facility]), [address], [place], [address], 5 09:13:15 Medication Orders losartan 50 mg tablet 2024 025 [facility], [address] [place], [address], 5 20:15:21 gabapentin 800 mg tablet 2024 025 [place] [facility], [address] [place], [address], 5 14:15:29 Medrol (Perez) 4 mg tablets in a dose pack 2023 025 [place] [facility], [address] [place], [address], 5 13:14:38 albuterol sulfate HFA 90 mcg/actuati on aerosol inhaler 2023 [facility], [address] [place], [address], 4 15:17:33 Trelegy Ellipta 100 mcg-62.5 mcg-25 mcg powder for inhalation 2023 [facility], [address] [place], [address], 5 15:34:38 clopidogrel 75 mg tablet 2023 [facility], [address] [place], [address], 4 15:32:48 losartan 50 mg tablet 2023 [facility], [address] [place], [address], 4 15:32:49 gabapentin 800 mg tablet 2023 [facility], [address] [place], [address], 5 17:32:22 Patient TargetsNo targets recorded. Patient InstructionsNo instructions recorded. Reason for Referral None Reported. Results Created Date Observation Date Name Description Value Unit Range Abnormal Flag Note LastModifiedBy Organization Detail LastModifiedTime 04/10/2004/17/2024 TOXAS SURE FLEX 19, UR summary report [...] ===== ===== ===== === Not Available [facility] ([facility]) [address], [place], [address], 04/17/2024 20:07:27 04/10/20 24 04/17/2024 TOXAS SURE FLEX 19, UR pdf . Not Available [facility] ([facility]) [address] [place], [address], 04/17/2024 20:07:27 04/10/20 24 04/17/2024 TOXAS SURE FLEX 19, UR creatinine 69 mg/dL REFER ENCE RANGE : Ref Range >=20 Not Available [facility] ([facility]) [address] [place], [address], 04/17/2024 20:07:27 04/10/20 24 04/17/2024 TOXAS SURE FLEX 19, UR amphetamines ia Negati ve NG/mL cutoff :300 Not Available [facility] ([facility]) [address] [place], [address], 04/17/2024 20:07:27 04/10/20 24 04/17/2024 TOXAS SURE FLEX 19, UR benzodiazepi xiang Negati ve Not Available [facility] ([facility]) [address] [place], [address], 04/17/2024 20:07:27 04/10/20 24 04/17/2024 TOXAS SURE FLEX 19, UR diazepam Not Detect ed NG/mg _crea t Not Available [facility] ([facility]) [address] [place], [address], 04/17/2024 20:07:27 04/10/20 24 04/17/2024 TOXAS SURE FLEX 19, UR desmethyldia zepam Not Detect ed NG/mg _crea t Not Available [facility] ([facility]) [address] [place], [address], 04/17/2024 20:07:27 04/10/20 24 04/17/2024 TOXAS SURE FLEX 19, UR oxazepam Not Detect ed NG/mg _crea t Not Available [facility] ([facility]) [address], [place], [place], [address], 04/17/2024 20:07:27 04/10/20 24 04/17/2024 TOXAS SURE [...] gladys Oxaze gladys: None Not Available [facility] ([facility]) [address], [place], [place], [address], 04/17/2024 20:07:27 04/10/20 24 04/17/2024 TOXAS SURE FLEX 19, UR alprazolam Not Detect ed NG/mg _crea t Not Available [facility] ([facility]) [address] [place], [address], 04/17/2024 20:07:27 04/10/20 24 04/17/2024 TOXAS SURE FLEX 19, UR alpha-hydrox yalprazolam Not Detect ed NG/mg _crea t Not Available [facility] ([facility]) [address] [place], [address], 04/17/2024 20:07:27 04/10/20 24 04/17/2024 TOXAS SURE FLEX 19, UR desalkylflur azepam Not Detect ed NG/mg _crea t Not Available [facility] ([facility]) [address] [place], [address], 04/17/2024 20:07:27 04/10/20 24 04/17/2024 TOXAS SURE FLEX 19, UR lorazepam Not Detect ed NG/mg _crea t Not Available [facility] ([facility]) [address], [place], [place], [address], 04/17/2024 20:07:27 04/10/20 24 04/17/2024 TOXAS SURE FLEX 19, UR alpha-hydrox ytriazolam Not Detect ed NG/mg _crea t Not Available [facility] ([facility]) [address] [place], [address], 04/17/2024 20:07:27 04/10/20 24 04/17/2024 TOXAS SURE FLEX 19, UR clonazepam Not Detect ed NG/mg _crea t Not Available [facility] ([facility]) [address] [place], [address], 04/17/2024 20:07:27 04/10/20 24 04/17/2024 TOXAS SURE FLEX 19, UR 7-aminoclona zepam Not Detect ed NG/mg _crea t Not Available [facility] ([facility]) [address] [place], [address], 04/17/2024 20:07:27 04/10/20 24 04/17/2024 TOXAS SURE FLEX 19, UR midazolam Not Detect ed NG/mg _crea t Not Available [facility] ([facility]) [address] [place], [address], 04/17/2024 20:07:27 04/10/20 24 04/17/2024 TOXAS SURE FLEX 19, UR alpha-hydrox ymidazolam Not Detect ed NG/mg _crea t Not Available [facility] ([facility]) [address] [place], [address], 04/17/2024 20:07:27 11/26/20 24 04/17/2024 TOXAS SURE FLEX 19, UR flunitrazepa m Not Detect ed NG/mg _crea t Not Available [facility] ([facility]) [address] [place], [address], 04/17/2024 20:07:27 04/10/20 24 04/17/2024 TOXAS SURE FLEX 19, UR desmethylflu nitrazepam Not Detect ed NG/mg _crea t Not Available [facility] ([facility]) [address] [place], [address], 04/17/2024 20:07:27 04/10/20 24 04/17/2024 TOXAS SURE FLEX 19, UR cocaine metabolite ia Negati ve NG/mL cutoff :150 Not Available [facility] ([facility]) [address] [place], [address], 04/17/2024 20:07:27 04/10/20 24 04/17/2024 TOXAS SURE FLEX 19, UR ethanol biomarkers ia Negati ve NG/mL cutoff :500 Not Available [facility] ([facility]) [address] [place], [address], 04/17/2024 20:07:27 04/10/20 24 04/17/2024 TOXAS SURE FLEX 19, UR cannabinoids ia Negati ve NG/mL cutoff :20 Not Available [facility] ([facility]) [address] [place] [address], [address], 04/17/2024 20:07:27 04/10/20 24 04/17/2024 TOXAS SURE FLEX 19, UR 6-acetylmorp rhys ia Negati ve NG/mL cutoff :10 Not Available [facility] ([facility]) [address] [place] [address], [address], 04/17/2024 20:07:27 04/10/20 24 04/17/2024 TOXAS SURE FLEX 19, UR opiate class ia Negati ve NG/mL cutoff :100 Not Available [facility] ([facility]) [address] [place], [address], 04/17/2024 20:07:27 04/10/20 24 04/17/2024 TOXAS SURE FLEX 19, UR oxycodone class ia Negati ve NG/mL cutoff :100 Not Available [facility] ([facility]) [address] [place], [address], 04/17/2024 20:07:27 04/10/20 24 04/17/2024 TOXAS SURE FLEX 19, UR methadone ia Negati ve NG/mL cutoff :100 Not Available [facility] ([facility]) [address] [place], [address], 04/17/2024 20:07:27 04/10/20 24 04/17/2024 TOXAS SURE FLEX 19, UR methadone mtb ia Negati ve NG/mL cutoff :100 Not Available [facility] ([facility]) [address] [place] [address], [address], 04/17/2024 20:07:27 04/10/20 24 04/17/2024 TOXAS SURE FLEX 19, UR buprenorphin e ia COMMEN T NG/mL cutoff :5.0 Furth er testi ng indic ated Not Available [facility] ([facility]) [address] [place], [address], 04/17/2024 20:07:27 04/10/20 24 04/17/2024 TOXAS SURE FLEX 19, UR fentanyl ia Negati ve NG/mL cutoff :2.0 Not Available [facility] ([facility]) [address] [place], [address], 04/17/2024 20:07:27 04/10/20 24 04/17/2024 TOXAS SURE FLEX 19, UR tapentadol ia Negati ve NG/mL cutoff :200 Not Available [facility] ([facility]) [address] [place], [address], 04/17/2024 20:07:27 04/10/20 24 04/17/2024 TOXAS SURE FLEX 19, UR propoxyphene ia Negati ve NG/mL cutoff :300 Not Available [facility] ([facility]) [address] [place], [address], 04/17/2024 20:07:27 04/10/20 24 04/17/2024 TOXAS SURE FLEX 19, UR tramadol ia Negati ve NG/mL cutoff :200 Not Available [facility] ([facility]) [address] [place], [address], 04/17/2024 20:07:27 04/10/20 24 04/17/2024 TOXAS SURE FLEX 19, UR methylphenid ate ia Commen t NG/mL cutoff :100 Furth er testi ng indic ated Not Available [facility] ([facility]) [address] [place], [address], 04/17/2024 20:07:27 04/10/20 24 04/17/2024 TOXAS SURE FLEX 19, UR barbiturates ia Negati ve NG/mL cutoff :200 Not Available [facility] ([facility]) [address] [place] [address], [address], 04/17/2024 20:07:27 04/10/20 24 04/17/2024 TOXAS SURE FLEX 19, UR phencyclidin e ia Negati ve NG/mL cutoff :25 Not Available [facility] ([facility]) [address] [place] [address], [address], 04/17/2024 20:07:27 04/10/20 24 04/17/2024 TOXAS SURE FLEX 19, UR gabapentin ia COMMEN T ug/mL cutoff :1.0 Furth er testi ng indic ated Not Available [facility] ([facility]) [address] [place], [address], 04/17/2024 20:07:27 04/10/20 24 04/17/2024 TOXAS SURE FLEX 19, UR anticonvulsa nts +POSIT PANCHO+ Not Available [facility] ([facility]) [address], [place], [place], [address], 04/17/2024 20:07:27 04/10/20 24 04/17/2024 TOXAS SURE FLEX 19, UR pregabalin Not Detect ed Not Available [facility] ([facility]) [address], [place], [place], [address], 04/17/2024 20:07:27 04/10/20 24 04/17/2024 TOXAS SURE FLEX 19, UR carisoprodol ia Negati ve NG/mL cutoff :100 Not Available [facility] ([facility]) [address] [place], [address], 04/17/2024 20:07:27 04/10/20 24 04/17/2024 BUP/N ALOXO NE, MS, UR RFX buprenorphin e +POSIT PANCHO+ Not Available [facility] ([facility]) [address] [place], [address], 04/17/2024 20:07:28 04/10/20 24 04/17/2024 BUP/N ALOXO NE, MS, UR RFX buprenorphin e 261 NG/mg _crea t Not Available [facility] ([facility]) [address] [place], [address], 04/17/2024 20:07:28 04/10/20 24 04/17/2024 BUP/N ALOXO NE, MS, UR RFX norbuprenorp rhys >1449 NG/mg _crea t Not Available [facility] ([facility]) [address] [place], [address], 04/17/2024 20:07:28 04/10/20 24 04/17/2024 BUP/N ALOXO NE, MS, UR RFX N/B ratio >5.56 >=0.3 Not Available [facility] ([facility]) [address] [place], [address], 04/17/2024 20:07:28 04/10/20 24 04/17/2024 BUP/N ALOXO NE, MS, UR RFX opiate antagonist +POSIT PANCHO+ Not Available [facility] ([facility]) [address] [place], [address], 04/17/2024 20:07:28 04/10/20 24 04/17/2024 BUP/N ALOXO NE, MS, UR RFX naloxone 159 NG/mg _crea t Not Available [facility] ([facility]) [address] [place], [address], 04/17/2024 20:07:28 04/10/20 24 04/17/2024 GABAP ENTIN , MS, UR RFX anticonvulsa nts +POSIT PANCHO+ Not Available [facility] ([facility]) [address] [place], [address], 04/17/2024 20:07:29 04/10/20 24 04/17/2024 GABAP ENTIN , MS, UR RFX gabapentin PRESEN T Not Available [facility] ([facility]) [address] [place], [address], 04/17/2024 20:07:29 04/10/20 24 04/17/2024 METHY LPHEN IDATE , MS, UR RFX sympathomime tics Negati ve Not Available [facility] ([facility]) [address] [place] [address], [address], 04/17/2024 20:07:30 04/10/20 24 04/17/2024 METHY LPHEN IDATE , MS, UR RFX methylphenid ate Not Detect ed Not Available [facility] ([facility]) [address], [place], [place], [address], 04/17/2024 20:07:30 04/10/2004/17/2024 METHY LPHEN IDATE , MS, UR RFX ritalinic acid Not Detect ed Not Available [facility] ([facility]) [address], [place], [place], [address], 04/17/2024 20:07:30 04/11/2004/12/2024 TSH+F REE T4 TSH 0.945 uIU/m L 0.450- 4.500 normal Not Available [facility] ([facility]) [address], [place], [place], [address], 04/12/2024 08:13:09 04/11/2004/12/2024 TSH+F REE T4 T4,free(dire ct) 1.35 NG/dL 0.82-1 .77 normal Not Available [facility] ([facility]) [address], [place], [place], [address], 04/12/2024 08:13:09 04/11/2004/12/2024 CBC WITH DIFFE RENTI AL/PL ATELE T WBC 4.9 x10e3 /uL 3.4-10 .8 normal Eff ectiv e Decem elo 2023 [place] 22760 5 WBC will be made* * non-o rdera ble as a stand -sid e order code. Not Available [facility] ([facility]) [address], [place], [place], [address], 04/12/2024 08:13:10 04/11/2004/12/2024 CBC WITH DIFFE RENTI AL/PL ATELE T RBC 4.92 x10e6 /uL 3.77-5 .28 normal Not Available [facility] ([facility]) [address] [place], [address], 04/12/2024 08:13:10 04/11/2008 0404/12/2024 CBC WITH DIFFE RENTI AL/PL ATELE T hemoglobin 13.4 g/dL 11.1-1 5.9 normal Not Available [facility] ([facility]) [address], [place], [place], [address], 04/12/2024 08:13:10 04/11/20 24 04/12/2024 CBC WITH DIFFE RENTI AL/PL ATELE T hematocrit 41.0 % 34.0-4 6.6 normal Not Available [facility] ([facility]) [address], [place], [place], [address], 04/12/2024 08:13:10 04/11/2004/12/2024 CBC WITH DIFFE RENTI AL/PL ATELE T MCV 83 fL 79-97 normal Not Available [facility] ([facility]) [address] [place], [address], 04/12/2024 08:13:10 04/11/20 24 04/12/2024 CBC WITH DIFFE RENTI AL/PL ATELE T MCH 27.2 pg 26.6-3 3.0 normal Not Available [facility] ([facility]) [address] [place], [address], 04/12/2024 08:13:10 04/11/20 24 04/12/2024 CBC WITH DIFFE RENTI AL/PL ATELE T MCHC 32.7 g/dL 31.5-3 5.7 normal Not Available [facility] ([facility]) [address] [place], [address], 04/12/2024 08:13:10 04/11/20 24 04/12/2024 CBC WITH DIFFE RENTI AL/PL ATELE T RDW 13.7 % 11.7-1 5.4 Not Available [facility] ([facility]) [address] [place], [address], 04/12/2024 08:13:10 04/11/20 24 04/12/2024 CBC WITH DIFFE RENTI AL/PL ATELE T platelets 226 x10e3 /uL 150-45 0 normal Not Available [facility] ([facility]) [address], [place], [place], [address], 04/12/2024 08:13:10 04/11/20 24 04/12/2024 CBC WITH DIFFE RENTI AL/PL ATELE T neutrophils 73 % not estab. normal Not Available [facility] ([facility]) [address], [place], [place], [address], 04/12/2024 08:13:10 04/11/20 24 04/12/2024 CBC WITH DIFFE RENTI AL/PL ATELE T lymphs 21 % not estab. normal Not Available [facility] ([facility]) [address], [place], [place], [address], 04/12/2024 08:13:10 04/11/20 24 04/12/2024 CBC WITH DIFFE RENTI AL/PL ATELE T monocytes 5 % not estab. normal Not Available [facility] ([facility]) [address], [place], [place], [address], 04/12/2024 08:13:10 04/11/20 24 04/12/2024 CBC WITH DIFFE RENTI AL/PL ATELE T eos 0 % not estab. normal Not Available [facility] ([facility]) [address], [place], [place], [address], 04/12/2024 08:13:10 04/11/20 24 04/12/2024 CBC WITH DIFFE RENTI AL/PL ATELE T basos 1 % not estab. normal Not Available [facility] ([facility]) [address], [place], [place], [address], 04/12/2024 08:13:10 04/11/20 24 04/12/2024 CBC WITH DIFFE RENTI AL/PL ATELE T immature cells BASKET MENDER Not Available [facility] ([facility]) [address], [place], [place], [address], 04/12/2024 08:13:10 04/11/2004/12/2024 CBC WITH DIFFE RENTI AL/PL ATELE T neutrophils (absolute) 3.6 x10e3 /uL 1.4-7. 0 normal Not Available [facility] ([facility]) [address] [place], [address], 04/12/2024 08:13:10 04/11/20 24 04/12/2024 CBC WITH DIFFE RENTI AL/PL ATELE T lymphs (absolute) 1.0 x10e3 /uL 0.7-3. 1 normal Not Available [facility] ([facility]) [address] [place], [address], 04/12/2024 08:13:10 04/11/20 24 04/12/2024 CBC WITH DIFFE RENTI AL/PL ATELE T monocytes(ab solute) 0.3 x10e3 /uL 0.1-0. 9 normal Not Available [facility] ([facility]) [address] [place], [address], 04/12/2024 08:13:10 04/11/20 24 04/12/2024 CBC WITH DIFFE RENTI AL/PL ATELE T eos (absolute) 0.0 x10e3 /uL 0.0-0. 4 normal Not Available [facility] ([facility]) [address] [place], [address], 04/12/2024 08:13:10 04/11/20 24 04/12/2024 CBC WITH DIFFE RENTI AL/PL ATELE T baso (absolute) 0.0 x10e3 /uL 0.0-0. 2 normal Not Available [facility] ([facility]) [address] [place], [address], 04/12/2024 08:13:10 04/11/20 24 04/12/2024 CBC WITH DIFFE RENTI AL/PL ATELE T immature granulocytes 0 % not estab. Not Available [facility] ([facility]) [address], [place], [place], [address], 04/12/2024 08:13:10 04/11/20 24 04/12/2024 CBC WITH DIFFE RENTI AL/PL ATELE T immature grans (abs) 0.0 x10e3 /uL 0.0-0. 1 Not Available [facility] ([facility]) [address], [place], [place], [address], 04/12/2024 08:13:10 04/11/2004/12/2024 CBC WITH DIFFE RENTI AL/PL ATELE T NRBC BASKET MENDER Not Available [facility] ([facility]) [address], [place], [place], [address], 04/12/2024 08:13:10 04/11/20 24 04/12/2024 CBC WITH DIFFE RENTI AL/PL ATELE T hematology comments: BASKET MENDER Not Available [facility] ([facility]) [address], [place], [place], [address], 04/12/2024 08:13:10 04/11/20 24 04/12/2024 COMP. METAB OLIC PANEL (14) glucose 125 mg/dL 70-99 above high normal Not Available [facility] ([facility]) [address], [place], [place], [address], 04/12/2024 08:13:10 04/11/20 24 04/12/2024 COMP. METAB OLIC PANEL (14) BUN 21 mg/dL 8-27 normal Not Available [facility] ([facility]) [address], [place], [place], [address], 04/12/2024 08:13:10 04/11/20 24 04/12/2024 COMP. METAB OLIC PANEL (14) creatinine 0.68 mg/dL 0.57-1 .00 normal Not Available [facility] ([facility]) [address], [place], [address], 04/12/2024 08:13:10 04/11/20 24 04/12/2024 COMP. METAB OLIC PANEL (14) eGFR 94 mL/mi n/1.7 3 >59 normal Not Available [facility] ([facility]) [address], [place], [address], 04/12/2024 08:13:10 04/11/20 24 04/12/2024 COMP. METAB OLIC PANEL (14) BUN/creatini ne ratio 31 12-28 above high normal Not Available [facility] ([facility]) [address], [place], [address], 04/12/2024 08:13:10 04/11/20 24 04/12/2024 COMP. METAB OLIC PANEL (14) sodium 125 mmol/ L 134-14 4 below low normal Not Available [facility] ([facility]) [address], [place], [address], 04/12/2024 08:13:10 04/11/20 24 04/12/2024 COMP. METAB OLIC PANEL (14) potassium 5.8 mmol/ L 3.5-5. 2 above high normal Not Available [facility] ([facility]) [address], [place], [address], 04/12/2024 08:13:10 04/11/20 24 04/12/2024 COMP. METAB OLIC PANEL (14) chloride 91 mmol/ L 96-106 below low normal Not Available [facility] ([facility]) [address] [place], [address], 04/12/2024 08:13:10 04/11/20 24 04/12/2024 COMP. METAB OLIC PANEL (14) carbon dioxide, total 19 mmol/ L 20-29 below low normal Not Available [facility] ([facility]) [address] [place], [address], 04/12/2024 08:13:10 04/11/20 24 04/12/2024 COMP. METAB OLIC PANEL (14) calcium 9.0 mg/dL 8.7-10 .3 normal Not Available [facility] ([facility]) [address] [place], [address], 04/12/2024 08:13:10 04/11/20 24 04/12/2024 COMP. METAB OLIC PANEL (14) protein, total 7.7 g/dL 6.0-8. 5 normal Not Available [facility] ([facility]) [address] [place], [address], 04/12/2024 08:13:10 04/11/20 24 04/12/2024 COMP. METAB OLIC PANEL (14) albumin 4.0 g/dL 3.9-4. 9 normal Not Available [facility] ([facility]) [address] [place], [address], 04/12/2024 08:13:10 04/11/20 24 04/12/2024 COMP. METAB OLIC PANEL (14) globulin, total 3.7 g/dL 1.5-4. 5 Not Available [facility] ([facility]) [address] [place], [address], 04/12/2024 08:13:10 04/11/20 24 04/12/2024 COMP. METAB OLIC PANEL (14) bilirubin, total 0.3 mg/dL 0.0-1. 2 normal Not Available [facility] ([facility]) [address] [place], [address], 04/12/2024 08:13:10 04/11/20 24 04/12/2024 COMP. METAB OLIC PANEL (14) alkaline phosphatase 106 IU/L 44-121 normal Not Available [facility] ([facility]) [address] [place], [address], 04/12/2024 08:13:10 04/11/20 24 04/12/2024 COMP. METAB OLIC PANEL (14) AST (SGOT) 18 IU/L 0-40 normal Not Available [facility] ([facility]) [address] [place], [address], 04/12/2024 08:13:10 04/11/20 24 04/12/2024 COMP. METAB OLIC PANEL (14) ALT (SGPT) 8 IU/L 0-32 normal Not Available [facility] ([facility]) [address] [place], [address], 04/12/2024 08:13:10 04/11/20 24 04/12/2024 LIPID PANEL cholesterol, total 116 mg/dL 100-19 9 normal Not Available [facility] ([facility]) [address] [place], [address], 04/12/2024 08:13:11 04/11/20 24 04/12/2024 LIPID PANEL triglyceride s 152 mg/dL 0-149 above high normal Not Available [facility] ([facility]) [address] [place], [address], 04/12/2024 08:13:11 04/11/20 24 04/12/2024 LIPID PANEL HDL cholesterol 34 mg/dL >39 below low normal Not Available [facility] ([facility]) [address] [place], [address], 04/12/2024 08:13:11 04/11/20 24 04/12/2024 LIPID PANEL VLDL cholesterol devin 26 mg/dL 5-40 Not Available [facility] ([facility]) [address] [place], [address], 04/12/2024 08:13:11 04/11/20 24 04/12/2024 LIPID PANEL LDL chol calc ([facility]) 56 mg/dL 0-99 Not Available [facility] ([facility]) [address], [place], [place], [address], 04/12/2024 08:13:11 04/11/2004/12/2024 LIPID PANEL LDL calc comment: [employer] Not Available [facility] ([facility]) [address], [place], [place], [address], 04/12/2024 08:13:11 04/11/20 24 04/12/2024 VITAM IN B12 AND FOLAT E vitamin B12 529 pg/mL 232-12 45 normal Not Available [facility] ([facility]) [address], [place], [place], [address], 04/12/2024 08:13:12 04/11/2004/12/2024 VITAM IN B12 AND FOLAT E folate (folic acid), serum 2.4 NG/mL >3.0 below low normal A serum folat e aida ntrat ion of less than 3.1 ng/mL is consi dered to repre sent clini devin defic iency . Not Available [facility] ([facility]) [address], [place], [place], [address], 04/12/2024 08:13:12 04/11/2004/12/2024 HEMOG LOBIN A1C hemoglobin A1C 6.0 % 4.8-5. 6 above high normal Predi abete s: 5.7 - 6.4 Diabe jovanni: >6.4 Glyce lexii contr ol for adult s with diabe jovanni: <7.0 Not Available [facility] ([facility]) [address], [place], [place], [address], 04/12/2024 08:13:12 04/11/2004/12/2024 VITAM IN D, 25-HY DROXY vitamin D, [...] um and D. An muñoz [place]: [facility] . 2. Tyra patel MF, Shawanda fernandez [place], Bisch off-F errar i KEATING, et al. Evalu ation , treat ment, and preve ntion of vitam in D defic iency : an Endoc rine Socie ty clini devin pract ice guide line. JCEM. 2010; 96(7) :1911 -30. Not Available [facility] ([facility]) [address] [place], [address], 04/12/2024 08:13:13 07/12/1907/13/2024 TSH+F REE T4 TSH 1.640 uIU/m L 0.450- 4.500 normal Not Available [facility] ([facility]) [address] [place], [address], 07/13/2024 08:12:44 07/12/1907/13/2024 TSH+F REE T4 T4,free(dire ct) 1.40 NG/dL 0.82-1 .77 normal Not Available [facility] ([facility]) [address] [place], [address], 07/13/2024 08:12:44 07/12/1907/13/2024 CBC WITH DIFFE RENTI AL/PL ATELE T WBC 5.8 x10e3 /uL 3.4-10 .8 normal Not Available [facility] ([facility]) [address] [place], [address], 07/13/2024 08:12:44 07/12/1907/13/2024 CBC WITH DIFFE RENTI AL/PL ATELE T RBC 5.18 x10e6 /uL 3.77-5 .28 normal Not Available [facility] ([facility]) [address] [place], [address], 07/13/2024 08:12:44 07/12/1907/13/2024 CBC WITH DIFFE RENTI AL/PL ATELE T hemoglobin 14.0 g/dL 11.1-1 5.9 normal Not Available [facility] ([facility]) [address] [place], [address], 07/13/2024 08:12:44 07/12/1907/13/2024 CBC WITH DIFFE RENTI AL/PL ATELE T hematocrit 43.8 % 34.0-4 6.6 normal Not Available [facility] ([facility]) [address] [place], [address], 07/13/2024 08:12:44 07/12/1907/13/2024 CBC WITH DIFFE RENTI AL/PL ATELE T MCV 85 fL 79-97 normal Not Available [facility] ([facility]) [address] [place], [address], 07/13/2024 08:12:44 07/12/1907/13/2024 CBC WITH DIFFE RENTI AL/PL ATELE T MCH 27.0 pg 26.6-3 3.0 normal Not Available [facility] ([facility]) [address] [place], [address], 07/13/2024 08:12:44 07/12/1907/13/2024 CBC WITH DIFFE RENTI AL/PL ATELE T MCHC 32.0 g/dL 31.5-3 5.7 normal Not Available [facility] ([facility]) [address] [place], [address], 07/13/2024 08:12:44 07/12/19 25 07/13/2024 CBC WITH DIFFE RENTI AL/PL ATELE T RDW 13.6 % 11.7-1 5.4 Not Available [facility] ([facility]) [address], [place], [place], [address], 07/13/2024 08:12:44 07/12/19 25 07/13/2024 CBC WITH DIFFE RENTI AL/PL ATELE T platelets 264 x10e3 /uL 150-45 0 normal Not Available [facility] ([facility]) [address], [place], [place], [address], 07/13/2024 08:12:44 07/12/19 25 07/13/2024 CBC WITH DIFFE RENTI AL/PL ATELE T neutrophils 63 % not estab. normal Not Available [facility] ([facility]) [address], [place], [place], [address], 07/13/2024 08:12:44 07/12/19 25 07/13/2024 CBC WITH DIFFE RENTI AL/PL ATELE T lymphs 26 % not estab. normal Not Available [facility] ([facility]) [address], [place], [place], [address], 07/13/2024 08:12:44 07/12/19 25 07/13/2024 CBC WITH DIFFE RENTI AL/PL ATELE T monocytes 9 % not estab. normal Not Available [facility] ([facility]) [address], [place], [place], [address], 07/13/2024 08:12:44 07/12/19 25 07/13/2024 CBC WITH DIFFE RENTI AL/PL ATELE T eos 1 % not estab. normal Not Available [facility] ([facility]) [address], [place], [place], [address], 07/13/2024 08:12:44 07/12/19 25 07/13/2024 CBC WITH DIFFE RENTI AL/PL ATELE T basos 1 % not estab. normal Not Available [facility] ([facility]) [address], [place], [place], [address], 07/13/2024 08:12:44 07/12/19 25 07/13/2024 CBC WITH DIFFE RENTI AL/PL ATELE T immature cells BASKET MENDER Not Available [facility] ([facility]) [address], [place], [place], [address], 07/13/2024 08:12:44 07/12/19 25 07/13/2024 CBC WITH DIFFE RENTI AL/PL ATELE T neutrophils (absolute) 3.6 x10e3 /uL 1.4-7. 0 normal Not Available [facility] ([facility]) [address], [place], [place], [address], 07/13/2024 08:12:44 07/12/19 25 07/13/2024 CBC WITH DIFFE RENTI AL/PL ATELE T lymphs (absolute) 1.5 x10e3 /uL 0.7-3. 1 normal Not Available [facility] ([facility]) [address] [place], [address], 07/13/2024 08:12:44 07/12/19 25 07/13/2024 CBC WITH DIFFE RENTI AL/PL ATELE T monocytes(ab solute) 0.5 x10e3 /uL 0.1-0. 9 normal Not Available [facility] ([facility]) [address] [place], [address], 07/13/2024 08:12:44 07/12/19 25 07/13/2024 CBC WITH DIFFE RENTI AL/PL ATELE T eos (absolute) 0.1 x10e3 /uL 0.0-0. 4 normal Not Available [facility] ([facility]) [address], [place], [place], [address], 07/13/2024 08:12:44 07/12/19 25 07/13/2024 CBC WITH DIFFE RENTI AL/PL ATELE T baso (absolute) 0.0 x10e3 /uL 0.0-0. 2 normal Not Available [facility] ([facility]) [address] [place], [address], 07/13/2024 08:12:44 07/12/19 25 07/13/2024 CBC WITH DIFFE RENTI AL/PL ATELE T immature granulocytes 0 % not estab. Not Available [facility] ([facility]) [address], [place], [place], [address], 07/13/2024 08:12:44 07/12/19 25 07/13/2024 CBC WITH DIFFE RENTI AL/PL ATELE T immature grans (abs) 0.0 x10e3 /uL 0.0-0. 1 Not Available [facility] ([facility]) [address], [place], [place], [address], 07/13/2024 08:12:44 07/12/19 25 07/13/2024 CBC WITH DIFFE RENTI AL/PL ATELE T NRBC BASKET MENDER Not Available [facility] ([facility]) [address] [place], [address], 07/13/2024 08:12:44 07/12/19 25 07/13/2024 CBC WITH DIFFE RENTI AL/PL ATELE T hematology comments: BASKET MENDER Not Available [facility] ([facility]) [address] [place], [address], 07/13/2024 08:12:44 07/12/19 25 07/13/2024 COMP. METAB OLIC PANEL (14) glucose 109 mg/dL 70-99 above high normal Not Available [facility] ([facility]) [address] [place], [address], 07/13/2024 08:12:45 07/12/19 25 07/13/2024 COMP. METAB OLIC PANEL (14) BUN 16 mg/dL 8-27 normal Not Available [facility] ([facility]) [address] [place], [address], 07/13/2024 08:12:45 07/12/19 25 07/13/2024 COMP. METAB OLIC PANEL (14) creatinine 0.85 mg/dL 0.57-1 .00 normal Not Available [facility] ([facility]) [address] [place], [address], 07/13/2024 08:12:45 07/12/19 25 07/13/2024 COMP. METAB OLIC PANEL (14) eGFR 74 mL/mi n/1.7 3 >59 normal Not Available [facility] ([facility]) [address] [place], [address], 07/13/2024 08:12:45 07/12/19 25 07/13/2024 COMP. METAB OLIC PANEL (14) BUN/creatini ne ratio 19 12-28 normal Not Available [facility] ([facility]) [address] [place], [address], 07/13/2024 08:12:45 07/12/19 25 07/13/2024 COMP. METAB OLIC PANEL (14) sodium 133 mmol/ L 134-14 4 below low normal Not Available [facility] ([facility]) [address], [place], [address], 07/13/2024 08:12:45 07/12/19 25 07/13/2024 COMP. METAB OLIC PANEL (14) potassium 5.1 mmol/ L 3.5-5. 2 normal Not Available [facility] ([facility]) [address] [place], [address], 07/13/2024 08:12:45 07/12/19 25 07/13/2024 COMP. METAB OLIC PANEL (14) chloride 98 mmol/ L 96-106 normal Not Available [facility] ([facility]) [address] [place], [address], 07/13/2024 08:12:45 07/12/19 25 07/13/2024 COMP. METAB OLIC PANEL (14) carbon dioxide, total 20 mmol/ L 20-29 normal Not Available [facility] ([facility]) [address] [place], [address], 07/13/2024 08:12:45 07/12/19 25 07/13/2024 COMP. METAB OLIC PANEL (14) calcium 8.9 mg/dL 8.7-10 .3 normal Not Available [facility] ([facility]) [address] [place], [address], 07/13/2024 08:12:45 07/12/19 25 07/13/2024 COMP. METAB OLIC PANEL (14) protein, total 7.7 g/dL 6.0-8. 5 normal Not Available [facility] ([facility]) [address] [place], [address], 07/13/2024 08:12:45 07/12/19 25 07/13/2024 COMP. METAB OLIC PANEL (14) albumin 3.9 g/dL 3.9-4. 9 normal Not Available [facility] ([facility]) [address] [place], [address], 07/13/2024 08:12:45 07/12/19 25 07/13/2024 COMP. METAB OLIC PANEL (14) globulin, total 3.8 g/dL 1.5-4. 5 Not Available [facility] ([facility]) [address] [place], [address], 07/13/2024 08:12:45 07/12/19 25 07/13/2024 COMP. METAB OLIC PANEL (14) bilirubin, total 0.2 mg/dL 0.0-1. 2 normal Not Available [facility] ([facility]) [address] [place], [address], 07/13/2024 08:12:45 07/12/19 25 07/13/2024 COMP. METAB OLIC PANEL (14) alkaline phosphatase 110 IU/L 44-121 normal Not Available [facility] ([facility]) [address] [place], [address], 07/13/2024 08:12:45 07/12/19 25 07/13/2024 COMP. METAB OLIC PANEL (14) AST (SGOT) 20 IU/L 0-40 normal Not Available [facility] ([facility]) [address] [place], [address], 07/13/2024 08:12:45 07/12/19 25 07/13/2024 COMP. METAB OLIC PANEL (14) ALT (SGPT) 8 IU/L 0-32 normal Not Available [facility] ([facility]) [address] [place], [address], 07/13/2024 08:12:45 07/12/19 25 07/13/2024 LIPID PANEL cholesterol, total 105 mg/dL 100-19 9 normal Not Available [facility] ([facility]) [address] [place], [address], 07/13/2024 08:12:45 07/12/19 25 07/13/2024 LIPID PANEL triglyceride s 131 mg/dL 0-149 normal Not Available [facility] ([facility]) [address] [place], [address], 07/13/2024 08:12:45 07/12/19 25 07/13/2024 LIPID PANEL HDL cholesterol 29 mg/dL >39 below low normal Not Available [facility] ([facility]) [address] [place], [address], 07/13/2024 08:12:45 07/12/19 25 07/13/2024 LIPID PANEL VLDL cholesterol devin 23 mg/dL 5-40 Not Available [facility] ([facility]) [address], [place], [place], [address], 07/13/2024 08:12:45 07/12/1907/13/2024 LIPID PANEL LDL chol calc ([facility]) 53 mg/dL 0-99 Not Available [facility] ([facility]) [address] [place], [address], 07/13/2024 08:12:45 07/12/19 25 07/13/2024 LIPID PANEL LDL calc comment: BASKET MENDER Not Available [facility] ([facility]) [address], [place], [place], [address], 07/13/2024 08:12:45 07/12/19 25 07/13/2024 VITAM IN B12 AND FOLAT E vitamin B12 538 pg/mL 232-12 45 normal Not Available [facility] ([facility]) [address], [place], [place], [address], 07/13/2024 08:12:46 07/12/1907/13/2024 VITAM IN B12 AND FOLAT E folate (folic acid), serum 2.3 NG/mL >3.0 below low normal A serum folat e aida ntrat ion of less than 3.1 ng/mL is consi dered to repre sent clini devin defic iency . Not Available [facility] ([facility]) [address], [place], [place], [address], 07/13/2024 08:12:46 07/12/1907/13/2024 HEMOG LOBIN A1C hemoglobin A1C 6.0 % 4.8-5. 6 above high normal Predi abete s: 5.7 - 6.4 Diabe jovanni: >6.4 Glyce lexii contr ol for adult s with diabe jovanni: <7.0 Not Available [facility] ([facility]) [address] [place], [address], 07/13/2024 08:12:46 07/12/19 25 07/13/2024 VITAM IN [...] IOM (Inst itute of Medic ine). 2010. Angelo ry refer marvine vivain es for calci um and D. An muñoz [place]: [facility] . 2. Tyra patel MF, Shawanda fernandez [place], Christianne off-F errar i KEATING, et al. Evalu ation , treat ment, and preve ntion of vitam in D defic iency : an Endoc rine Socie ty clini devin pract ice guide line. JCEM. 2010; 96(7) :1911 -30. Not Available [facility] ([facility]) [address] [place], [address], 07/13/2024 08:12:46 08/21/19 25 08/21/2024 CBC WITH DIFFE RENTI AL/PL ATELE T WBC 8.4 x10e3 /uL 3.4-10 .8 normal Not Available [facility] ([facility]) [address] [place], [address], 08/21/2024 08:25:57 08/21/19 25 08/21/2024 CBC WITH DIFFE RENTI AL/PL ATELE T RBC 5.35 x10e6 /uL 3.77-5 .28 above high normal Not Available [facility] ([facility]) [address] [place], [address], 08/21/2024 08:25:57 08/21/19 25 08/21/2024 CBC WITH DIFFE RENTI AL/PL ATELE T hemoglobin 14.2 g/dL 11.1-1 5.9 normal Not Available [facility] ([facility]) [address] [place], [address], 08/21/2024 08:25:57 08/21/1908/21/2024 CBC WITH DIFFE RENTI AL/PL ATELE T hematocrit 45.2 % 34.0-4 6.6 normal Not Available [facility] ([facility]) [address] [place], [address], 08/21/2024 08:25:57 08/21/1908/21/2024 CBC WITH DIFFE RENTI AL/PL ATELE T MCV 85 fL 79-97 normal Not Available [facility] ([facility]) [address] [place], [address], 08/21/2024 08:25:57 08/21/19 25 08/21/2024 CBC WITH DIFFE RENTI AL/PL ATELE T MCH 26.5 pg 26.6-3 3.0 below low normal Not Available [facility] ([facility]) [address] [place], [address], 08/21/2024 08:25:57 08/21/1908/21/2024 CBC WITH DIFFE RENTI AL/PL ATELE T MCHC 31.4 g/dL 31.5-3 5.7 below low normal Not Available [facility] ([facility]) [address] [place], [address], 08/21/2024 08:25:57 08/21/1908/21/2024 CBC WITH DIFFE RENTI AL/PL ATELE T RDW 13.8 % 11.7-1 5.4 Not Available [facility] ([facility]) [address] [place], [address], 08/21/2024 08:25:57 08/21/19 25 08/21/2024 CBC WITH DIFFE RENTI AL/PL ATELE T platelets 274 x10e3 /uL 150-45 0 normal Not Available [facility] ([facility]) [address], [place], [place], [address], 08/21/2024 08:25:57 08/21/19 25 08/21/2024 CBC WITH DIFFE RENTI AL/PL ATELE T neutrophils 62 % not estab. normal Not Available [facility] ([facility]) [address], [place], [place], [address], 08/21/2024 08:25:57 08/21/19 25 08/21/2024 CBC WITH DIFFE RENTI AL/PL ATELE T lymphs 27 % not estab. normal Not Available [facility] ([facility]) [address], [place], [place], [address], 08/21/2024 08:25:57 08/21/19 25 08/21/2024 CBC WITH DIFFE RENTI AL/PL ATELE T monocytes 8 % not estab. normal Not Available [facility] ([facility]) [address], [place], [place], [address], 08/21/2024 08:25:57 08/21/19 25 08/21/2024 CBC WITH DIFFE RENTI AL/PL ATELE T eos 2 % not estab. normal Not Available [facility] ([facility]) [address], [place], [place], [address], 08/21/2024 08:25:57 08/21/19 25 08/21/2024 CBC WITH DIFFE RENTI AL/PL ATELE T basos 1 % not estab. normal Not Available [facility] ([facility]) [address], [place], [place], [address], 08/21/2024 08:25:57 08/21/19 25 08/21/2024 CBC WITH DIFFE RENTI AL/PL ATELE T immature cells BASKET MENDER Not Available [facility] ([facility]) [address], [place], [place], [address], 08/21/2024 08:25:57 08/21/1908/21/2024 CBC WITH DIFFE RENTI AL/PL ATELE T neutrophils (absolute) 5.2 x10e3 /uL 1.4-7. 0 normal Not Available [facility] ([facility]) [address], [place], [place], [address], 08/21/2024 08:25:57 08/21/19 25 08/21/2024 CBC WITH DIFFE RENTI AL/PL ATELE T lymphs (absolute) 2.2 x10e3 /uL 0.7-3. 1 normal Not Available [facility] ([facility]) [address], [place], [place], [address], 08/21/2024 08:25:57 08/21/1908/21/2024 CBC WITH DIFFE RENTI AL/PL ATELE T monocytes(ab solute) 0.6 x10e3 /uL 0.1-0. 9 normal Not Available [facility] ([facility]) [address] [place], [address], 08/21/2024 08:25:57 08/21/1908/21/2024 CBC WITH DIFFE RENTI AL/PL ATELE T eos (absolute) 0.2 x10e3 /uL 0.0-0. 4 normal Not Available [facility] ([facility]) [address] [place], [address], 08/21/2024 08:25:57 08/21/1908/21/2024 CBC WITH DIFFE RENTI AL/PL ATELE T baso (absolute) 0.1 x10e3 /uL 0.0-0. 2 normal Not Available [facility] ([facility]) [address] [place], [address], 08/21/2024 08:25:57 08/21/19 25 08/21/2024 CBC WITH DIFFE RENTI AL/PL ATELE T immature granulocytes 0 % not estab. Not Available [facility] ([facility]) [address], [place], [place], [address], 08/21/2024 08:25:57 08/21/19 25 08/21/2024 CBC WITH DIFFE RENTI AL/PL ATELE T immature grans (abs) 0.0 x10e3 /uL 0.0-0. 1 Not Available [facility] ([facility]) [address], [place], [place], [address], 08/21/2024 08:25:57 08/21/19 25 08/21/2024 CBC WITH DIFFE RENTI AL/PL ATELE T NRBC BASKET MENDER Not Available [facility] ([facility]) [address], [place], [place], [address], 08/21/2024 08:25:57 08/21/19 25 08/21/2024 CBC WITH DIFFE RENTI AL/PL ATELE T hematology comments: BASKET MENDER Not Available [facility] ([facility]) [address], [place], [place], [address], 08/21/2024 08:25:57 08/21/19 25 08/21/2024 COMP. METAB OLIC PANEL (14) glucose 118 mg/dL 70-99 above high normal Not Available [facility] ([facility]) [address], [place], [place], [address], 08/21/2024 08:25:58 08/21/19 25 08/21/2024 COMP. METAB OLIC PANEL (14) BUN 15 mg/dL 8-27 normal Not Available [facility] ([facility]) [address] [place], [address], 08/21/2024 08:25:58 08/21/19 25 08/21/2024 COMP. METAB OLIC PANEL (14) creatinine 0.78 mg/dL 0.57-1 .00 normal Not Available [facility] ([facility]) [address], [place], [place], [address], 08/21/2024 08:25:58 08/21/19 25 08/21/2024 COMP. METAB OLIC PANEL (14) eGFR 82 mL/mi n/1.7 3 >59 normal Not Available [facility] ([facility]) [address], [place], [address], 08/21/2024 08:25:58 08/21/19 25 08/21/2024 COMP. METAB OLIC PANEL (14) BUN/creatini ne ratio 19 12-28 normal Not Available [facility] ([facility]) [address], [place], [address], 08/21/2024 08:25:58 08/21/19 25 08/21/2024 COMP. METAB OLIC PANEL (14) sodium 135 mmol/ L 134-14 4 normal Not Available [facility] ([facility]) [address], [place], [place], [address], 08/21/2024 08:25:58 08/21/19 25 08/21/2024 COMP. METAB OLIC PANEL (14) potassium 4.6 mmol/ L 3.5-5. 2 normal Not Available [facility] ([facility]) [address], [place], [place], [address], 08/21/2024 08:25:58 08/21/19 25 08/21/2024 COMP. METAB OLIC PANEL (14) chloride 97 mmol/ L 96-106 normal Not Available [facility] ([facility]) [address], [place], [address], 08/21/2024 08:25:58 08/21/19 25 08/21/2024 COMP. METAB OLIC PANEL (14) carbon dioxide, total 21 mmol/ L 20-29 normal Not Available [facility] ([facility]) [address] [place], [address], 08/21/2024 08:25:58 08/21/19 25 08/21/2024 COMP. METAB OLIC PANEL (14) calcium 10.0 mg/dL 8.7-10 .3 normal Not Available [facility] ([facility]) [address], [place], [place], [address], 08/21/2024 08:25:58 08/21/19 25 08/21/2024 COMP. METAB OLIC PANEL (14) protein, total 7.5 g/dL 6.0-8. 5 normal Not Available [facility] ([facility]) [address], [place], [address], 08/21/2024 08:25:58 08/21/19 25 08/21/2024 COMP. METAB OLIC PANEL (14) albumin 3.9 g/dL 3.9-4. 9 normal Not Available [facility] ([facility]) [address], [place], [address], 08/21/2024 08:25:58 08/21/19 25 08/21/2024 COMP. METAB OLIC PANEL (14) globulin, total 3.6 g/dL 1.5-4. 5 Not Available [facility] ([facility]) [address], [place], [address], 08/21/2024 08:25:58 08/21/1908/21/2024 COMP. METAB OLIC PANEL (14) bilirubin, total <0.2 mg/dL 0.0-1. 2 Not Available [facility] ([facility]) [address], [place], [address], 08/21/2024 08:25:58 08/21/19 25 08/21/2024 COMP. METAB OLIC PANEL (14) alkaline phosphatase 101 IU/L 44-121 normal Not Available [facility] ([facility] [address], [place], [address], 08/21/2024 08:25:58 08/21/19 25 08/21/2024 COMP. METAB OLIC PANEL (14) AST (SGOT) 18 IU/L 0-40 normal Not Available [facility] ([facility]) [address], [place], [place], [address], 08/21/2024 08:25:58 08/21/19 25 08/21/2024 COMP. METAB OLIC PANEL (14) ALT (SGPT) 7 IU/L 0-32 normal Not Available [facility] ([facility]) [address], [place], [place], [address], 08/21/2024 08:25:58 08/21/19 25 08/21/2024 VITAM IN B12 AND FOLAT E vitamin B12 483 pg/mL 232-12 45 normal Not Available [facility] ([facility]) [address], [place], [place], [address], 08/21/2024 08:25:59 08/21/19 25 08/21/2024 VITAM IN B12 AND FOLAT E folate (folic acid), serum >20.0 NG/mL >3.0 A serum folat e aida ntrat ion of less than 3.1 ng/mL is consi dered to repre sent clini devin defic iency . Not Available [facility] ([facility]) [address], [place], [place], [address], 08/21/2024 08:25:59 04/16/20 24 01/04/2024 MAMMO , scree bill, digit al, bilat eral No observ ation record ed. [email or web address] [facility] [address], [place], [address], 07/17/2024 12:38:43 10/21/19 25 10/20/2024 CT, head + brain , w/o contr ast No observ ation record ed. [facility] [address], [place], [address], 10/22/2024 14:23:53 10/21/19 25 10/20/2024 CT, angio gram, chest , w/o contr ast No observ ation record ed. [address], [place], [address], 10/22/2024 14:21:49 10/21/19 25 10/20/2024 XR, chest No observ ation record ed. [address], [place], [address], 10/22/2024 14:22:12 10/21/19 25 10/20/2024 CT, angio gram, head, w/ contr ast No observ ation record ed. [address], [place], [address], 10/22/2024 14:22:32 10/21/19 25 10/20/2024 CT, angio gram, neck, w/wo contr ast No observ ation record ed. [address], [place], [address], 10/22/2024 14:22:58 10/21/19 25 10/20/2024 CT, angio gram, head, w/ contr ast No observ ation record ed. [address], [place], [address], 10/22/2024 14:23:12 10/21/19 25 10/19/2024 elect rocar diogr am No observ ation record ed. [address], [place], [address], 10/22/2024 14:23:26 10/21/19 25 10/20/2024 elect rocar diogr am No observ ation record ed. [address], [place], [address], 10/22/2024 14:23:39 Result Notes None recorded. Problems Name Problem SNOMED Code Status Onset Date Resolution Date Notes Provider Name and Address Organization Details Recorded Time Chronic obstructive pulmonary disease 40871439 Active 2024 [facility] [employer] 5 13:34:30 Lung mass 668505915 Active 2024 Layla piper, [employer] 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 5 13:35:28 Problem Notes None recorded. Procedures Surgical History Date Name Laterality Status Provider Name and Address Organization Details Recorded Time 4 Most Recent Mammogram completed Layla Park [employer]. 04/10/2024 14:41:12 Imaging Results None recorded. Procedure Notes None recorded. Medical Equipment None Reported. Allergies Allergen ID Allergen Name Allergen Category Reaction Reaction Severity Criticality Documentation Date Start Date Code Code System Note Provider Name and Address Organization Details Recorded Time 85944 Substance with sulfonami de structure and antibacte rial mechanism of action (substanc e) medicatio n itching rash Not available Not available Not available 04/10/2024 [id number] SNOMED Layla piper, [employer] 4 14:16:46 Medications Name Sig Start Date Stop Date Status Note LastModified by Organization Details LastModified Time losartan 50 mg tablet Take 1.5 tablets every day by oral route for 30 days. 2024 active Not Available Not Available Not Avai lable alendronate 10 mg tablet 04/10 completed Not Available Not Available Not Available gabapentin 600 mg tablet 04/10 completed Not Available Not Available Not Available albuterol sulfate 1.25 mg/3 mL solution for nebulizatio n Inhale 3 mL every 6 hours by inhalatio n route as needed. 2024 active Not Available Not Available Not Avai lable prednisone 20 mg tablet TAKE TWO TABLETS BY MOUTH EVERY DAY FOR 3 DAYS --TAKE WITH FOOD-- active Not Available Not Available No t Available clonazepam 0.5 mg tablet 04/10 completed Not Available Not Available Not Available clopidogrel 75 mg tablet Take 1 tablet every day by oral route. 2024 active Not Available Not Available Not Avai lable hydrocodone 10 mg-acetamin ophen 325 mg tablet 04/10 completed Not Available Not Available Not Available levothyroxi ne 25 mcg tablet Take 1 tablet every day by oral route for 30 days. 2024 active Not Available Not Available Not Avai lable gabapentin 800 mg tablet Take 1 tablet 3 times a day by oral route for 30 days. 2024 active Not Available Not Available Not Avai lable folic acid 1 mg tablet Take 1 tablet every day by oral route for 30 days. 2024 active Not Available Not Available Not Avai lable hydrochloro thiazide 25 mg tablet 04/10 completed Not Available Not Available Not Available metoprolol succinate ER 25 mg tablet,exte nded release 24 hr Take 1 tablet every day by oral route for 30 days. 2024 active Not Available Not Available Not Avai lable levofloxaci n 750 mg tablet TAKE ONE TABLET BY MOUTH every 48 hours FOR 4 DAYS, take THE first DOSE 10/23/24 active Not Available Not Available No t Available methylpredn isolone 4 mg tablets in a dose pack as directed 07/12 completed Not Available Not Available Not Available albuterol sulfate HFA 90 mcg/actuati on aerosol inhaler Inhale 2 puffs every 4 hours by inhalatio n route as needed. 2024 active Not Available Not Available Not Avai lable fluoxetine 20 mg capsule 04/10 completed Not Available Not Available Not Available enoxaparin 60 mg/0.6 mL subcutaneou s syringe INJECT 50MG (0.5ML) SUBCUTANE OUSLY EVERY TWELVE HOURS FOR 15 DAYS active Not Available Not Available No t Available buprenorphi ne 8 mg-naloxone 2 mg sublingual tablet 04/10 completed Not Available Not Available Not Available clonazepam 0.25 mg disintegrat ing tablet 04/10 completed Not Available Not Available Not Available rosuvastati n 20 mg tablet Take 1 tablet every day by oral route for 30 days. 2024 active Not Available Not Available Not Avai lable buprenorphi ne 8 mg-naloxone [address] FILMS UNDER THE TONGUE AND ALLOW TO DISSOLVE 1 TIME EACH DAY active Not Available Not Available No t Available naloxone 4 mg/actuatio n nasal spray active Not Available Not Available Not Available Trelegy Ellipta 100 mcg-62.5 mcg-25 mcg powder for inhalation Inhale 1 puff every day by inhalatio n route. 2024 active Not Available Not Available Not Avai lable Vitals Date Recorded Body height Body mass index (BMI) Body weight Heart rate Oxygen saturation Oxygen saturation in Arterial blood by Pulse oximetry Systolic blood pressure Diastolic blood pressure Provider Name and Address Organization Details Last Updated DateTime 5 165.1 cm 19.3 kg/m2 65283.7 1 g 112 /min 90 % 90 % 196 mm[Hg] 120 mm[Hg] [place] [employer] 5 13:12:27 Date Recorded Body height Provider Name an d Address Organization Details Last Updated DateTime 10/26/2024 165.1 cm [place] [employer] 10/26/2024 13:37:30 Date Recorded Body height Body mass index (BMI) Body weight Heart rate Oxygen saturation Oxygen saturation in Arterial blood by Pulse oximetry Systolic blood pressure Diastolic blood pressure Systolic blood pressure Diastolic blood pressure Provider Name and Address Organization Details Last Updated DateTime 4 165.1 cm 19.8 kg/m2 31600.1 9 g 114 /min 94 % 94 % 171 mm[Hg] 139 mm[Hg] 150 mm[Hg] 70 mm[Hg] [place] [employer]. 4 15:52:19 Social History Question Answer Notes LastModified by Organizat ion Details LastModified Time Tobacco Smoking Status Current Every Day Smoker [facility] [employer]. 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 None Information not available [...] Do You Have A Medical Power Of Electronic Data Interchange Specialist? No Information not available 04/10/2024 What Was The Date Of Your Most Recent Tobacco Screening? 10/26/2024 Information not available 10/26/2024 What Is Your Current Pack Years? 30ormorepacky [...] What Date Was Tobacco Cessation Counseling Provided? 10/26/2024 Information not available 10/26/2024 How Many Years Have You Smoked Tobacco? [...] GPAL:G 0 P 0 0 0 0 Immunizations Vaccine Type Date Status Note Provider Benjamín lauren and Address Organization Details Recorded Time COVID-19 vaccine, vector-nr, rS-Ad26, PF, 0.5 mL 08/19/2020 completed Not Available [facility] 13:34:05 Tdap 03/09/2021 completed Not Available [facility] 10/26/2024 13:34:05 Past Encounters Encounter ID Performer Location Encounter Start Date Encounter Closed Date Diagnosis/Indication Diagnosis SNOMED-CT Code Diagnosis ICD10 Code Diagnosis Note [id number] [place] [address] 04/10/2024 13:43:50 04/10/2024 16:36:15 Neuropathy 839594787 G62.9 Hypothyroidism 76723714 E03.9 Hyperlipidemia 93441649 E78.5 Fatigue 13970853 R53.83 Vitamin D deficiency 347 59152 E55.9 Vitamin B deficiency 479 33550 E53.9 Hyperglycemia 28725290 R 73.9 Chronic ob structive pulmonary disease 40867220 J44.9 Essential hypertension 45133998 I10 Acute exac erbation of chronic obstructive pulmonary disease 018295396 J44.1 Nicotine dependence 5629 4008 F17.200 Body mass index less than 20 892158009 Z68.1 [id number] [place] [address] 07/12/2024 12:33:51 07/12/2024 14:06:23 Screening for malignant neoplasm of colon 680069652 Z12.11 Essential hypertension 23490458 I10 Fatigue 87862535 R53.83 Vitamin D deficiency 347 08865 E55.9 Vitamin B deficiency 479 09407 E53.9 Hyperglycemia 19892355 R 73.9 Hyperlipidemia 50317732 E78.5 Neuropathy 943025032 G62 .9 Screening for malignant neoplasm of respiratory tract 430646967 Z12.2 Hyponatremia 40909973 E8 7.1 Hyperkalemia 27467162 E8 7.5 Body mass index less than 20 373479822 Z68.1 Health Concerns Section Related Observation LastModified by Organization Detai ls LastModified Time None Recorded Concern Status LastModified by Organization Details LastModified Time None Recorded Advance Directives Directive N: Payers Insurance Date Sequence Insurance Name Policy Number Policy Magaña Covered Member ID Magaña Member ID Guarantor Name 10/23/2024 1 [employer] - DUAL ELIGIBLE (MEDICARE REPLACEMENT/AD VANTAGE - HMO) Anisha Grier [id number] Anisha Grier 10/18/2024 [place] [employer] - [facility] [id number] Anisha Dawkins Marvel [id number] Anisha Marvel 07/19/2024 1 [place] (MEDICARE REPLACEMENT HMO) [id number] Anisha Dawkins Marvel [id number] Anisha Grier 04/10/2024 1 *SELF PAY* [...] over but doesnt have a ride to [place]. i told her about our transportation services, [...] she has appt with lung doc in [facility] in [place]. Radha Cesar, FIBERGLASS CONTAINER WINDING OPERATOR [address] [facility]], [place], [address], [facility] [employer] 04/10/2024 16:35:26 07/12/2024 text/html 69 year [...] and transport today. Radha Cesar APRN [address] [facility]], [place], [address], [facility] [employer] 07/12/2024 16:21:54 OBGyn Episode No OBEpisode recorded.
--- OUTSIDE RECORDS SUMMARY | 2024-10-27 13:40 | XMS_ITS | Encounter Summary ---
Author Organization [employer] Address [address] [place] [address] Care Team Providers Care Community Service Technician Name Role Phone Unavailable Primary Care Provider Unavailabl e Encounter Details Date Type Department Care Team (Late st Contact Info) Description 07/02/2021 Transcribed Document [facility] [place] [address] [place] [address] ProviderMorteza [place] [facility] [place] [address] Social History Tobacco Use Types Packs/Day Years [...] - Historical ProviderMD - 07/02/2021 11:33 AM CREDIT COLLECTIONS MANAGER Pain Assessment Entered On: 07/03/2021 5:09 EST [...]
--- OUTSIDE RECORDS SUMMARY | 2024-10-27 13:40 | XMS_ITS | Encounter Summary ---
Author Organization [employer] Address [address] [place] [address] Care Team Providers Care Pediatric Acute Care Unit Nurse Name Role Phone Unavailable Primary Care Provider Unavailabl e Encounter Details Date Type Department Care Team (Late st Contact Info) Description 07/02/2021 Transcribed Document [facility] Radiology [address] [place] [address] Stevan Watkins MD [address] [facility] [place] [address] Social History Tobacco Use Types Packs/Day Years [...] 20 mg, Oral, 1-Time Documented Medications Documented Gerry 7.5 mg-325 mg oral tablet: 1 Tab, [...] metoprolol succinate 25 mg, Oral, At Bedtime Gerry 7.5 mg-325 mg oral tablet 1 Tab, [...] in past 4-5months 2021 / SNOMED CT 2815986182 / Confirmed Peripheral vascular disease / SNOMED CT 5241910142 / Confirmed HTN (hypertension) / SNOMED CT 7667064137 / Confirmed HLD (hyperlipidemia) / SNOMED CT 90581227 / Confirmed Hemorrhoids / SNOMED CT 832817791 / Confirmed COPD / SNOMED CT 78541844 / Confirmed lower back pain to both hips- to BLE / SNOMED CT 953653031 / Confirmed At risk for sleep apnea / IMO 86208335 / Confirmed Anxiety / SNOMED CT 37430698 / Confirmed Abdominal aortic aneurysm / SNOMED CT 153761498 / Confirmed, Active Problems (10) Abdominal aortic [...]
--- OUTSIDE RECORDS SUMMARY | 2024-10-27 13:40 | XMS_ITS | Encounter Summary ---
Author Organization [employer] Address [address] [place] [address] Care Team Providers Care Coding Clerks Supervisor Name Role Phone Unavailable Primary Care Provider Unavailabl e Encounter Details Date Type Department Care Team (Late st Contact Info) Description 07/02/2021 Transcribed Document [facility] [place] [facility] [place] [address] ProviderMorteza MD [address] [place] [address] Social History Tobacco Use Types Packs/Day [...] - Historical ProviderMD - 07/02/2021 11:03 AM EXECUTIVE CHEF Evaluation, Occupational Therapy Entered On: 07/03/2021 11:21 [...] Agreeable. Pt up with RN walking to [facility]. Patient's Response to Treatment : 02 at [...] 07/03/2021 11:16 EST Electronically signed by Deepak [facility] Conversion Residential Director Cerner at 08/31/2022 9:54 PM CDT documented in this encounter Plan of Treatment Not on file documented as of this encounter Visit Diagnoses Not on filedocumented in this encounter
--- OUTSIDE RECORDS SUMMARY | 2024-10-27 13:40 | XMS_ITS | Encounter Summary ---
Author Organization [employer] Address [address] [place] [address] Care Team Providers Care Bmw Sales Consultant Name Role Phone Unavailable Primary Care Provider Unavailabl e Encounter Details Date Type Department Care Team (Late st Contact Info) Description 07/02/2021 Transcribed Document [facility] [place] Family Medicine [facility] [place] [address] ProviderMorteza MD [address] [place] [address] Social History Tobacco Use Types Packs/Day [...] - Historical ProviderMD - 07/02/2021 10:16 AM TRANSFER CAR OPERATOR [facility] Main OR IntraOp Summary Primary Physician: MIKA THIBODEAUX MD-SUR Finalized Date/Time: 07/03/21 09:03:09 Pt. Name: RACHEL GRIER /Sex: 1955 Female Med Rec #: [id number] Physician: MIKA THIBODEAUX MD-SUR Financial #: [id number] Pt. Type: I Room/Bed: [facility] Admit/Disch: 07/02/21 06:37:00 - Institution: [facility] IntraOp Case Attendance Entry 1 Entry 2 Entry 3 Case Attendee MIKA THIBODEAUX MD-SUR BARRETT, LAURIE, MD-BIRD DAILEY APRN, LIVESTOCK SPECULATOR Role Performed Surgeon/Proceduralist, Anesthesiologist of LIVESTOCK SPECULATOR/Nurse Bank Credit Card Collection Clerk First Record Time In 07/02/21 09:53:00 07/02/21 [...] A, Sadaf Kim RN Role Performed Student Shake Sawyer, First Shake Sawyer, Second Time In 07/02/21 09:53:00 07/02/21 09:53:00 [...] Case Attendee Dianna Ly CAMPBELL, JANET, Cardiovascular CAP BLOCKER Dog Walker Role Performed Dog Walker Dog Walker Time In 07/02/21 09:53:00 07/02/21 09:53:00 Time Out 07/02/21 11:17:00 07/02/21 11:17:00 Procedure Aortic Stent Placement Aortic Stent Placement Endovascular Endovascular Other Attendee Superficial Wound Closed By: Last Modified By: Kiki Mcallister RN Napier, Elizabeth A, RN 07/02/21 11:17:08 07/02/21 11:17:08 [facility] IntraOp Case Attendance Audit 07/02/21 11:17:08 Tanbark Laborer: EANAPIER Modifier: EANAPIER 1 <+> Time [...] Procedure Aortic Stent Placement Endovascular 07/02/21 10:29:31 Tanbark Laborer: EANAPIER Modifier: EANAPIER <+> 1 Procedure 2 <*> Procedure Aortic Stent Placement Endovascular 3 <*> Procedure Aortic Stent Placement Endovascular 4 <*> Procedure Aortic Stent Placement Endovascular 5 <*> Procedure Aortic Stent Placement Endovascular 6 <*> Procedure Aortic Stent Placement Endovascular 7 <*> Procedure Aortic Stent Placement Endovascular 8 <*> Procedure Aortic Stent Placement Endovascular 07/02/21 10:29:18 Tanbark Laborer: SCOTTNAPIER Modifier: EANAPIER 2 <+> Time [...] Procedure Aortic Stent Placement Endovascular 07/02/21 10:28:42 Tanbark Laborer: [email or web address] Modifier: EANAPIER <+> 2 Case [...] 8 Role Performed <+> 8 Procedure [facility] IntraOp Case Times Entry 1 Patient In Room Time 07/02/21 09:53:00 Out Room Time 07/02/21 11:17:00 Anesthesia Start Time 07/02/21 09:53:00 Stop Time 07/02/21 11:17:00 Surgery / Procedure Times Start Time 07/02/21 10:16:00 Stop Time 07/02/21 10:59:00 Last Modified By: Kiki Mcallister RN 07/02/21 11:16:51 [facility] IntraOp Case Times Audit 07/02/21 11:16:51 Tanbark Laborer: EANAPIER Modifier: EANAPIER <+> 1 Out Room Time <+> 1 Stop Time 07/02/21 10:58:54 Tanbark Laborer: EANAPIER Modifier: EANAPIER <+> 1 Stop Time 07/02/21 10:17:34 Tanbark Laborer: EANAPIER Modifier: EANAPIER <+> 1 Start Time [facility] IntraOp Communication Entry 1 Entry 2 Communication To Family/Significant other Other Comment PACU Communication By Date and Time Last Modified By: Kiki Mcallister RN Napier, Elizabeth A, RN 07/02/21 10:37:31 07/02/21 10:37:31 [facility] IntraOp Departure from OR Entry 1 Integumentary Assessment Integumentary WDL Assessment WDL Transfer/Handoff Transfer to PACU Phase I Handoff Method Bedside/Face to face Post-op Transport Bed (including Via specialty) Patient Transport BIRD EDWARD, Accompanied by RAFIQ FERNANDEZ HALL, ADAM SRNA, SRNA Transfer/Handoff ICU BED REQUESTED Comments Last Modified By: Kiki Mcallister RN 07/02/21 10:37:51 [facility] IntraOp Dressing and Packing Entry 1 Type Dressing Location GROIN Wound Dressing Item Skin Closure Glue Applied By MIKA THIBODEAUX MD-WYATT Last Modified By: Kiki Mcallister RN 07/02/21 10:35:55 [facility] IntraOp Fire Risk Assessment Entry 1 Fire [...] By: Kiki Mcallister RN 07/02/21 10:28:54 [facility] IntraOp General Case Rip/Mould Operator 1 Case Information OR OR 20 [facility] Case Level 1 Room Verified Yes Wound Class 1 - Clean Specialty Endovascular Anesthesia Type MAC ASA Class 3 Diagnosis Preop Diagnosis AAA Postop Same As Preop Yes Postop Diagnosis AAA Wound Class Definitions Last Modified By: Kiki Mcallister RN 07/02/21 10:25:15 [facility] IntraOp Implant Log Entry 1 Entry 2 Entry 3 Type Implant (Synthetic) Implant (Synthetic) Implant (Synthetic) Implant Log Implant Type Tissue Implant Type Implant CLOSURE SYS PERCLOSE [id number] BLLN VBX Identification [id number] Description Implant Quantity 3 1 1 Implant Site MAIN BODY RIGHT COMMON ILIAC Implant Identification Model Number Implant [id number] Identification Serial Number Implant Identification Lot Number Implant Price Lab:Vasc Dev [place] [employer]:Med Prdt Identification Tree Worker Name: Implant [id number] Identification Catalog Number Implant Size 6F 26MM X 12MM X 12CM 8MM X 59 MM Implant Has an Yes Yes Yes Expiration Date Implant Expiration 03/15/23 07/28/23 11/13/23 Date Wasted Radioactive Material Time Implanted Tissue Implant Continue for Tissue Implant Documentation Tissue Identification Number Graft Prep Per Tree Worker Instructions: Tissue Preparation Method: Reconstitution Solution: Reconstitution Solution Lot Number Reconstitution Solution Expiration Date: Thawing Solution Thawing Solution Lot Number Thawing Solution Expiration Date Preparation Materials, Other Preparation Materials, Other Lot Number Preparation Materials, Other Expiration Date Tissue Prepared/Processed By Tree Worker Paperwork Completed Implant Type Comment Last Modified By: Kiki Mcallister RN Napier, Elizabeth A, RN Napier, Elizabeth A, RN 07/02/21 10:23:11 07/02/21 10:32:04 07/02/21 10:35:29 Entry 4 Entry 5 Type Implant (Synthetic) Implant (Synthetic) Implant Log Implant Type Tissue Implant Type Implant GRFT EXCLUDER GRFT EXCLUDER Identification [id number] Description Implant Quantity 1 1 Implant Site LEFT COMMON ILIAC RIGHT COMMON ILIAC Implant Identification Model Number Implant [id number] Identification Serial Number Implant Identification Lot Number Implant [place] [employer]:Med Prdt [place] [employer]:Med Prdt Identification Tree Worker Name: Implant [id number] Identification Catalog Number Implant Size 165MM X 12MM X 10 CM 165MM X 12MM X 14 CM Implant Has an Yes Yes Expiration Date Implant Expiration 02/19/24 05/04/24 Date Wasted Radioactive Material Time Implanted Tissue Implant Continue for Tissue Implant Documentation Tissue Identification Number Graft Prep Per Tree Worker Instructions: Tissue Preparation Method: Reconstitution Solution: Reconstitution Solution Lot Number Reconstitution Solution Expiration Date: Thawing Solution Thawing Solution Lot Number Thawing Solution Expiration Date Preparation Materials, Other Preparation Materials, Other Lot Number Preparation Materials, Other Expiration Date Tissue Prepared/Processed By Tree Worker Paperwork Completed Implant Type Comment Last Modified By: Kiki Mcallister RN Napier, Elizabeth A, RN 07/02/21 10:53:25 07/02/21 10:53:25 [facility] IntraOp Implant Log Audit 07/02/21 10:53:25 Tanbark Laborer: EANAPIER Modifier: EANAPIER <+> 4 Implant Identification Description <+> 4 Implant Identification Serial Number <+> 4 Implant Identification Tree Worker Name: <+> 4 Implant Size <+> 4 Implant Expiration Date <+> 4 Implant Site <+> 4 Implant Quantity <+> 4 Implant Identification Catalog Number <+> 4 Implant Has an Expiration Date <+> 4 Type <+> 5 Implant Identification Description <+> 5 Implant Identification Serial Number <+> 5 Implant Identification Tree Worker Name: <+> 5 Implant Size <+> 5 Implant Expiration Date <+> 5 Implant Site <+> 5 Implant Quantity <+> 5 Implant Identification Catalog Number <+> 5 Implant Has an Expiration Date <+> 5 Type 07/02/21 10:35:29 Tanbark Laborer: EANAPIER Modifier: EANAPIER <+> 3 Implant Identification Description <+> 3 Implant Identification Serial Number <+> 3 Implant Identification Tree Worker Name: <+> 3 Implant Size <+> 3 Implant Expiration Date <+> 3 Implant Site <+> 3 Implant Quantity <+> 3 Implant Identification Catalog Number <+> 3 Implant Has an Expiration Date <+> 3 Type 07/02/21 10:32:04 Tanbark Laborer: JASKARAN Modifier: EANAPIER <+> 2 Implant Identification Description <+> 2 Implant Identification Serial Number <+> 2 Implant Size <+> 2 Implant Expiration Date <+> 2 Implant Site <+> 2 Implant Quantity <+> 2 Implant Has an Expiration Date <+> 2 Type [facility] IntraOp Intraoperative Assessment Entry 1 Handoff Method [...] By: Kiki Mcallister RN 07/02/21 10:13:59 [facility] IntraOp Intraoperative Equipment Entry 1 Type Monitoring Equipment Intraop Monitoring Electrocardiogram Three lead placement (ECG) Electrode Placement Blood Pressure Non-Invasive BP Device Source Blood Pressure Arm, left upper Location Pulse Oximeter Hand, left Probe Site Antiembolic Devices Scopes Photo/Video Documentation Last Modified By: Kiki Mcallister RN 07/02/21 10:36:06 [facility] IntraOp Medication Admin Entry 1 Entry 2 Entry 3 Medication/Irrigant NETTA VISIPAQUE 320MG 150 NETTA NACL 0.9PCT HPRN lidocaine 1% 50ml vial 200ML --[id number] 1000U .5L -[id number] - [id number] Combo Med List Time Administered Route of [...] 07/02/21 10:59:07 07/02/21 10:36:18 07/02/21 10:36:18 [facility] IntraOp Medication Admin Audit 07/02/21 10:59:07 Tanbark Laborer: SCOTTRYANLILIANA Modifier: SCOTTNAPIER <+> 1 Dose [facility] IntraOp Patient Positioning Entry 1 Procedure Aortic [...] Lam RN, MIKA THIBODEAUX MD-WYATT, BIRD EDWARD, OPERATING ROOM ORDERLY, LIVESTOCK SPECULATOR Position Verified Positioning Yes Verified by Anesthesia Positioning Yes Verified by Surgeon Last Modified By: Kiki Mcallister RN 07/02/21 10:36:48 [facility] IntraOp Sign In Entry 1 Patient, Site, [...] By: Kiki Mcallister RN 07/02/21 10:29:17 [facility] IntraOp Sign Out Entry 1 RN Confirmation [...] By: Kiki Mcallister RN 07/02/21 11:17:00 [facility] IntraOp Sign Out Audit 07/02/21 11:17:00 Tanbark Laborer: JASKARAN Modifier: MEHNAZER <+> 1 RN Sign Out Signature Date/Time [facility] IntraOp Skin Prep Entry 1 Procedure Aortic Stent Placement Endovascular Prescribed Yes Pre-Surgical Prep Completed Prep Area NIPPLES TO KNEES Intraop Prep Integumentary WDL Assessment WDL Prep Agents Chloraprep Hair Removal Methods Clipper/Scissors Last Modified By: Kiki Mcallister RN 07/02/21 10:25:42 [facility] IntraOp Surgical Procedures Entry 1 Procedure Aortic Stent Placement Endovascular Additional ENDO REPAIR AAA Procedure Description Primary Procedure Yes Primary Surgeon MIKA THIBODEAUX MD-WYATT Start 07/02/21 10:16:00 Stop 07/02/21 10:59:00 Anesthesia Type MAC Specialty Endovascular Wound Class 1 - Clean Last Modified By: Kiki Mcallister RN 07/02/21 11:01:01 [facility] IntraOp Surgical Procedures Audit 07/02/21 11:01:01 Tanbark Laborer: JASKARAN Modifier: MEHNAZER 1 <*> Procedure Aortic Stent Placement Endovascular 1 <+> Stop 1 <*> Additional Procedure Description (ENDO REPAIR AAA) [facility] IntraOp Temp Regulation Devices Entry 1 Temp Regulation Temperature Forced Air Warming Regulation Device device Temperature Upper body Regulation Site Temperature Device 43 C Setting Temperature BIRD EDWARD, Regulation Device OPERATING ROOM ORDERLY, LIVESTOCK SPECULATOR Applied by Last Modified By: Kiki Mcallister RN 07/02/21 10:36:57 [facility] IntraOP Time Out Entry 1 Procedure to [...] By: Kiki Mcallister RN 07/02/21 10:13:57 [facility] IntraOp X-Ray and Images Entry 1 X-Ray/Imaging [...] WATTSDR Correct Billing Electronically signed by Deepak [facility] Conversion [employer] Law Clerk Cerner at 08/31/2022 9:33 PM CDT documented in this encounter Plan of Treatment Not on file documented as of this encounter Visit Diagnoses Not on filedocumented in this encounter
--- OUTSIDE RECORDS SUMMARY | 2024-10-27 13:40 | XMS_ITS | Encounter Summary ---
Author Organization [employer] Address [address] [place] [address] Care Team Providers Care Intensive Care Unit Registered Nurse Name Role Phone Unavailable Primary Care Provider Unavailabl e Encounter Details Date Type Department Care Team (Late st Contact Info) Description 07/02/2021 Transcribed Document [facility] [place] [facility] [place] [address] ProviderMorteza MD Formerly [facility] [place] [address] Social History Tobacco Use Types [...] - Historical Provider, - 07/02/2021 6:36 AM CLINICAL RESOURCE MANAGER Admission History, Adult Entered On: 07/02/2021 [...] No Support Person/Pt Rep Contact Information : [phone] daughter [place] Want Family/Rep/Phys Notified of [...] [place] 2nd Ident. Medical Decision Maker [phone] Secondary Number of People in Class : 4 2nd Ident. Medical Decision Maker Class : Adult Children Chief Complaint : to have aortic stent placed for aneurysm Information Obtained From : Patient Primary Language : South [place] Communication Barrier : None Machine Operations Supervisor Needed : Darby Herron RN - 07/02/2021 [...] Level : 46 or > High Risk [place] Fall Interventions : Adequate lighting, Assistive devices [...] Tobacco Cessation Medication : Yes Implant/Device Type, [employer] Sales Supervisor and Model : right leg stent Darby [...] Source : Chart Height Entry Format : [place] Height, Feet : 5 ft(Converted to: 152 cm, 60 Inch) Height, Inches : 5 Inch(Converted to: 0 ft 5 Inch, 12.70 cm) Clinical Height : 165.1 cm Weight Source : Standing scale Weight Entry Format : [place] Clinical Dosing Weight : 45.09 kg Weight, Pounds : 99.2 lb Body Surface Area (BSA) : 1.47 m2 Body Mass Index : 16.5 kg/m2 (<LLOW) [place] Body Weight : 57 kg Darby Troncoso [...] Darby Troncoso RN - 07/02/2021 18:36 EST [place] Suicide Severity Rating Scale (C-SSRS) CSSRS Past [...]
[2024-10-27 14:12] LABS: Basophils # 0.1 K/mm3 (0-0.2); Basophils % 0.8 % (0.1-2.0); Eosinophils # 0.2 Kmm3 (0.0-0.4); Eosinophils % 1.7 % (0.1-12.0); Hematocrit 43.6 % (37.0-47.0); Hemoglobin 13.6 g/dL (12.2-16.2); Immature Granulocytes # 0.08 10^3uL; Immature Granulocytes % 0.7 %; Lymphocytes # 5.3 K/mm3 (0.7-4.5); Lymphocytes % 45.2 % (10-50); Mean Corpuscular HGB Conc 31.2 g/dL (31.8-35.4); Mean Corpuscular Hemoglobin 25.6 pg (27.0-31.2); Mean Corpuscular Volume 82.1 fl (81-99); Mean Platelet Volume 10.3 fl (7.4-10.4); Monocytes # 0.8 K/mm3 (0.1-1.0); Monocytes % 7.1 % (1.7-9.3); Neutrophils # 5.2 K/mm3 (1.8-7.8); Neutrophils % 44.5 % (37.0-80.0); Nucleated Red Blood Cells # 0 10^3/uL; Nucleated Red Blood Cells % 0 %; Platelet Count 306 K/mm3 (142-424); Red Blood Count 5.31 M/mm3 (4.20-5.40); Red Cell Distribution Width 14.6 % (11.5-17.5); Red Cell Distribution Width-SD 43.2 fL; White Blood Count 11.6 K/mm3 (4.8-10.8)
[2024-10-27 14:22] LABS: Albumin Level 4.2 g/dl (3.5-5.0); Chloride 99 mmol/L (98-107)
[2024-10-27 14:23] LABS: Sodium 135 mmol/L (136-145)
[2024-10-27 14:25] LABS: Alanine Aminotransferase 22 U/L (12-78); Aspartate Amino Transferase 42 U/L (14-36); Blood Urea Nitrogen 15 mg/dl (7-17); Carbon Dioxide 29 mmol/L (22.0-30.0); Creatinine Clearance Estimated 39 mL/min (50-200); Estimated Glomerular Filt Rate 83 ml/min (>60); GFR (African American) 100 ML/MIN (>60)
[2024-10-27 14:26] LABS: Albumin/Globulin Ratio 1.1 (1.1-1.8); Alkaline Phosphatase 76 U/L (38-126); Bilirubin,Total 0.5 mg/dl (0.2-1.3); Calcium 10.8 mg/dl (8.4-10.2); Glucose 116 mg/dl (74-100); MANUAL DIFFERENTIAL MANUAL DIFFERENTIAL (MANUAL DIFF); Total Protein,Serum 8.2 g/dl (6.3-8.2)
[2024-10-27 14:34] LABS: Activated Partial Thrombo Time 33.9 seconds (22.8-30.6); INR 1.18 (0.9-1.1); Prothrombin Time 12.9 seconds (10.1-12.5)
--- NOTE | 2024-10-27 14:36 | PC.NURSE ---
pt going to radiology
[2024-10-27] MEDS: SODIUM CHLORIDE 0.9% 10ML SYR (RAD ONLY) 10 ML IV (14:40)
[2024-10-27] MEDS: 0.9 % SODIUM CHLORIDE 50 ML VIAL IV (14:41)
[2024-10-27] MEDS: IOPAMIDOL-370 (76%);100ML BOTTLE 80 ML IV (14:41)
[2024-10-27 14:54] LABS: Lymphocytes % 51 % (10-50); Monocytes % 7 % (2-9); Neutrophils % 41 % (42-76); Platelet Estimate Normal; Total Cells Counted 100
[2024-10-27 14:55] LABS: RBC Morphology Normal
--- NOTE | 2024-10-27 15:47 | PC.NURSE ---
ROUNDED ON PT, UPDATED ON POC. PT READY FOR DISCHARGE. PROVIDER NOTIFIED
--- NOTE | 2024-10-27 16:15 | PC.NURSE ---
PEGGY DOBSON on the phone with [facility] @ this time
== END 2024-10-27 16:22 | disposition home or self-care (01) ==
PROVIDERS: Physician Assistant; Emergency Provider Emergency Medicine; PCP Nurse Practitioner
DX: R04.2 Hemoptysis (principal); R91.8 Other nonspecific abnormal finding of lung field; F17.210 Nicotine dependence, cigarettes, uncomplicated; I10 Essential (primary) hypertension; E78.5 Hyperlipidemia, unspecified
CPT/HCPCS: 71275; 80053; 85007; 85025; 85027; 85610; 85730; 99284; Q9967

== ENCOUNTER 2024-11-05 09:51 | Day surgery (SDC) | payer MEDICARE, MEDICAID, SELFPAY ==
[2024-10-30 14:26] VITALS: BMI 17.8
[2024-11-05] VITALS (9 sets, daily range): BP systolic 81–146; BP diastolic 60–81; PULSE 81–119; RESP 14–20; TEMP 36.3–36.7; O2SAT 91–100
--- NOTE | 2024-11-05 10:45 | P.PNANES_ITS ---
[facility] Disclaimer: The information contained in this section may have been updated after the patient was seen, as this information can be updated by other users. Medical History Mediastinal lymphadenopathy Hilar lymphadenopathy Restless sleeper Snoring Smoker Palpitations Tachycardia HTN (hypertension), benign HLD (hyperlipidemia) Carotid stenosis Ligamentum flavum hypertrophy Bulging of lumbar intervertebral disc Facet hypertrophy of lumbar region Anxiety Surgical History History of carotid endarterectomy History of abdominal aortic aneurysm repair H/O breast biopsy Hx of tonsillectomy Family History Other Anxiety Family history of CVA Family history of brain aneurysm Social History Smoking Status: Current every day smoker tobacco type: cigarettes packs per day: 1 second hand exposure: Yes alcohol intake: never substance use type: denies use current occupational status: retired Travel in the last 8 weeks?: None household members: none housing: apartment number of children: 4 caffeine: No Have you lived/traveled outside US in past 30 days?: No Contact w/someone who lives/traveled outside US past 30 days?: No Exposure to someone with infectious disease in past 14 days?: No Do you have a fever (greater than 100.4 F or 38 C)?: No Have you tested positive for COVID-19?: No Exposed to someone with COVID-19 in past 14 days?: No Do you have a sore throat?: No Do you have a cough?: No Do you have any weakness?: No Do you have any diarrhea?: No Are you experiencing any unusual bleeding?: No Do you have any muscle aches/pain?: No Do you have any abdominal pain?: No Are you experiencing loss of taste or smell?: No [facility] Anesthesia Checklist Patient Identification Patient Identification: Arm Band and Verbal (Name & ) Structural Data Admitted From: Home Planned Operative Procedure/s: Bronchoscopy w/ EBUS Consent for Planned Operative Procedure(s) Verified: Yes Verified Documents: Surgical Consent NPO Status Verified Time NPO: 00:00 Chart Verification Results Verified: ECG Additional verifications Anesthesia Reactions: No Hx Blood Transfusions: No Blood Transfusion Reaction: No Airway Assessment Mallampati Score:: Class II C-Spine Mobility Assessed: Yes TMJ Mobility Assessed: Yes Dentition: Edentulous Neurological Assessment Level of Consciousness: Awake, Alert and Appropriate Hx Seizures: No Numbness or tingling in extremities: No Anesthesia Plan Anesthesia Risk discussed: Yes Anesthesia Plan: Verified ASA Class: III Anesthesia Type: General
--- NOTE | 2024-11-05 12:58 | P.PNANES_ITS ---
[facility] Anesthesia Record Part I Anesthesia Record I Intake, IV Amount: 900 Hydration: Adequate Estimated blood loss (mL): 0 Urine output (mL): 0 Blood Pressure: 119/77 SaO2: 100 Pulse Rate: 100 Airway Patency: Patent Respiratory Rate: 14 Temperature: 97.8 F Patient is:: Awake and Stable Stable to PACU at:: 12:55
--- NOTE | 2024-11-05 13:01 | XR_ITS ---
FINAL REPORT CLINICAL HISTORY: BRONCH 1.5 kristi 8.10 mGy fluoro 1:32 FINDINGS: FLUOROSCOPY LESS THAN 1 HOUR HISTORY: Fluoroscopy guidance. FINDINGS: Fluoroscopic guidance was provided for bronchoscopy. Two spot films were obtained. A total of 1:32 minutes of fluoroscopy time were used. DAP: 8.10 mGy IMPRESSION: As above. Reviewed, Interpreted and Dictated by Patricia Gorman MD Transcribed by Noris Mulligan Authenticated and [facility]
--- NOTE | 2024-11-05 13:11 | XR_ITS ---
FINAL REPORT CLINICAL HISTORY: post-bronch COMPARISON: CT chest 10/20/2024 FINDINGS: Right upper lobe opacity corresponds to known mass. This has enlarged since the recent chest CT. Interval enlargement could represent surrounding hemorrhage and/or postobstructive pneumonia. Emphysema changes are noted. There is no evidence of pneumothorax. Mediastinum is unremarkable. Heart size is normal. IMPRESSION: Enlargement of right upper lobe opacity. Reviewed, Interpreted and Dictated by Patricia Gorman MD Transcribed by Noris Mulligan Authenticated and [facility]
--- NOTE | 2024-11-05 13:12 | EXP.BRONCH.N ---
Procedure: Date: 11/05/24 Patient Date of :: 1955 Procedure Performed:: Bronchoscopy airway examination bronchoalveolar lavage, transbronchial biopsy and endobronchial ultrasound-guided fine-needle aspiration of lymph node Indications:: Lung nodule and lymphadenopathy Performing Provider:: Laquita Mcdonnell MD Referring Provider:: Dr: Darek Ross MD Sedation:: General anesthesia Procedure:: Bronchoscopy airway examination bronchoalveolar lavage, transbronchial biopsy and endobronchial ultrasound-guided fine-needle aspiration of lymph node: A clean EBUS bronchoscopy was advanced the ET tube and lymph node surveillance was performed. Patient noted to have lymphadenopathy at station 4R, 7 and station 11R. Endobronchial ultrasound-guided fine-needle aspiration of the lymph nodes were performed at the aforementioned 3 stations, total of 5 passes were performed at each lymph node station and was sent in CytoLyt for cytopathologic examination. EBUS bronchoscopy was retracted and A clean DIAGNOSTIC bronchoscopy was advanced through the ET tube and airways were examined up to subsegmental bronchi. Airways appeared grossly normal, no evidence of mucoid secretions active bleeding/old blood clots noted. Mucous plugging was noted in left lower lobe segmental bronchi that was suctioned completely. Otherwise no other evidence of mucous plugging noted Bronchoalveolar lavage was performed in the RIGHT UPPER LOBE with instillation of 60 cc normal saline with return of 15 cc back. BAL fluid was sent in CytoLyt for cytopathologic examination. No cell count differential and cultures were sent from the BAL given scant return. Transbronchial biopsy was performed in the RIGHT UPPER LOBE with a total of 7 biopsies performed, 5 biopsy specimens were sent in formalin for cytopathologic examination. The other 2 biopsy samples, were sent one each in two separate normal saline specimen cups for bacterial fungal and AFB stain cultures. Special request was also made for the pathologist to evaluate for AFB and fungal organisms on the cytopathologic examination if cytology comes back negative for malignancy. Patient tolerated the procedure with no immediate acute complications. We will follow the patient in pulmonary clinic in 7 to 10 days. 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
--- NOTE | 2024-11-06 13:34 | EXP.ANES.II ---
[facility] Anesthesia Record Part II Anesthesia Record Part II Discharge Time: 13:25 Destination: Surgical Day Care (OP Surgery) PACU nurse assessment reviewed?: Yes Patient Condition:: Good Anesthesia Complications:: None Swallowing reflex intact?: Yes Airway Patency: Patent Cyanosis?: No Blood Pressure: 108/63 SaO2: 93 Respiratory Rate: 16 Pulse Rate: 81 Temperature: 97.4 F Mental Status: Alert & Oriented Pain level:: 0 Nausea and/or vomitting:: None Intake, IV Amount: 0 Hydration: Adequate
[2024-11-06 13:35] VITALS: BP 108/63; PULSE 81; RESP 16; TEMP 36.3; O2SAT 93
== END 2024-11-05 13:58 | disposition home or self-care (01) ==
PROVIDERS: PCP Nurse Practitioner; Visit Provider Internal Medicine Pulmonary Disease
PROC: BB4BZZZ Ultrasonography of Pleura (ICD-10-PCS; CPT 31624; principal; 2024-11-05 11:15)
DX: R91.1 Solitary pulmonary nodule (principal); R59.0 Localized enlarged lymph nodes; R09.02 Hypoxemia; F17.210 Nicotine dependence, cigarettes, uncomplicated; R00.2 Palpitations; R00.0 Tachycardia, unspecified; I10 Essential (primary) hypertension; E78.5 Hyperlipidemia, unspecified; I65.29 Occlusion and stenosis of unspecified carotid artery; Z79.890 Hormone replacement therapy; Z79.899 Other long term (current) drug therapy; Z88.2 Allergy status to sulfonamides; Z79.02 Long term (current) use of antithrombotics/antiplatelets
CPT/HCPCS: 31624; 31628; 31653; 71045; 76000; 87070; 87077; 87102; 87116; 87186; 87205; 87206; 88112; 88173; 88305; 88312; J1100; J1596; J2003; J2371; J2405; J2704; J2710; J3010

== ENCOUNTER 2024-11-12 10:12 | Outpatient (CLI) | payer MEDICARE, MEDICAID, SELFPAY ==
--- OUTSIDE RECORDS SUMMARY | 2009-03-19 03:30 | XMS_ITS | Continuity of Care Document ---
Author Organization [facility] Address [address] [place] [address] Phone Care Team Providers Care Digital Sales Planner Name Role Phone Unavailable Unavailable Unavailable Procedures Procedure Date Extraction erupted tooth or exposed root Extraction erupted tooth or exposed root Periapical first film Palliative tx dental pain minor proc Jan Advance Directives Directive Yes / No Effective Date File Name No Information Encounters Encounter Description Practice Location Reason(s) For Visit Diagnoses Date Provider Providers Copied on Encounter [facility], [address] [place] [address] [place], [id number] tel:[phone] [facility] [place] No Information 4-200 9 No Information [facility], [address] [place] [address] Verónica Gomez [place], [id number] tel:[phone] [facility] [place] No Information 9-200 9 No Information Family History Family Member Type Diagnosis Age At Onset No Information Payers Payer name Insurance type Covered alliance party ID Authoriza tion(s) No Information Social [...]
[2024-11-12 11:15] LABS: C-Reactive Protein 14.7 mg/L (0-4)
[2024-11-14 18:09] LABS: Histoplasma Gal'mannan Ag Ur Negative (<0.2 ng/mL)
[2024-11-15 12:12] LABS: Clinical Relevance Notes (.); Disclaimer Notes (.); Interpretation Notes (.); Result Negative (.)
[2024-11-15 16:23] LABS: Histoplasma Antibody Quant Negative (Neg:<1:1)
[2024-11-15 18:37] LABS: D001-IgE D pteronyssinus <0.10 kU/L (Class 0); D002-IgE D farinae <0.10 kU/L (Class 0); E001-IgE Cat Dander <0.10 kU/L (Class 0); E005-IgE Dog Dander <0.10 kU/L (Class 0); E072-IgE Mouse Urine <0.10 kU/L (Class 0); G002-IgE Bermuda Grass <0.10 kU/L (Class 0); G006-IgE Timothy Grass <0.10 kU/L (Class 0); I006-IgE Cockroach, German <0.10 kU/L (Class 0); Immunoglobulin E, Total 480 IU/mL (6-495); M001-IgE Penicillium chrysogen <0.10 kU/L (Class 0); M002-IgE Cladosporium herbarum <0.10 kU/L (Class 0); M003-IgE Aspergillus fumigatus <0.10 kU/L (Class 0); M006-IgE Alternaria alternata <0.10 kU/L (Class 0); T001-IgE Maple/Box Elder <0.10 kU/L (Class 0); T003-IgE Common Silver Birch <0.10 kU/L (Class 0); T006-IgE Cedar, Mountain <0.10 kU/L (Class 0); T007-IgE Oak, White <0.10 kU/L (Class 0); T008-IgE Elm, American <0.10 kU/L (Class 0); T010-IgE Walnut <0.10 kU/L (Class 0); T011-IgE Maple Leaf Sycamore <0.10 kU/L (Class 0); T014-IgE Cottonwood <0.10 kU/L (Class 0); T015-IgE Ash, White <0.10 kU/L (Class 0); T022-IgE Pecan, Hickory <0.10 kU/L (Class 0); T070-IgE White Mulberry <0.10 kU/L (Class 0); W001-IgE Ragweed, Short <0.10 kU/L (Class 0); W011-IgE Thistle, Russian <0.10 kU/L (Class 0); W014-IgE Pigweed, Common <0.10 kU/L (Class 0); W018-IgE Sheep Sorrel <0.10 kU/L (Class 0)
[2024-11-16 15:10] LABS: Aspergillus flavus Negative (Neg:<1:1); Aspergillus fumigatus Negative (Neg:<1:1); Aspergillus niger Negative (Neg:<1:1); Blastomyces Antibody Negative (Neg:<1:1)
== END 2024-11-12 23:59 | disposition home or self-care (01) ==
LOC: LAB 10:12
PROVIDERS: PCP Nurse Practitioner; Visit Provider Internal Medicine Pulmonary Disease
DX: J84.10 Pulmonary fibrosis, unspecified (principal); J30.9 Allergic rhinitis, unspecified; R91.8 Other nonspecific abnormal finding of lung field; R04.2 Hemoptysis; R91.1 Solitary pulmonary nodule
CPT/HCPCS: 36415; 82785; 86003; 86140; 86606; 86612; 86698; 87385; 87449

== ENCOUNTER 2025-04-12 19:25 | Observation (INO) | payer MEDICARE, MEDICAID, SELFPAY ==
--- OUTSIDE RECORDS SUMMARY | 2009-03-19 02:30 | XMS_ITS | Continuity of Care Document ---
Author Organization [facility] Address [address] [place] [address] Phone Care Team Providers Care Motor Adjuster Name Role Phone Unavailable Unavailable Unavailable Procedures Procedure Date Extraction erupted tooth or exposed root Extraction erupted tooth or exposed root Periapical first film Palliative tx dental pain minor proc Jan Advance Directives Directive Yes / No Effective Date File Name No Information Encounters Encounter Description Practice Location Reason(s) For Visit Diagnoses Date Provider Providers Copied on Encounter [facility], [address] [place] [address] [place], [place], [id number] tel:[phone] [facility] [place] No Information 4-200 9 No Information [facility], [address] [place] [address] [place]ón[place], [place], [id number] tel:[phone] [facility] [place] No Information 9-200 9 No Information Family History Family Member Type Diagnosis Age At Onset No Information Payers Payer name Insurance type Covered republican ID Authoriza tion(s) No Information Social History Type Description Quantity Date Captured Comments Sex Female Smoking Status No Information History Of Present Illness Encounter Date Complaint History Of Prese nt Illness No Information Functional Status Date Functional Assessmen t No Information Instructions Date Instruction Additional Infor mation No Information Assessments Type Assessment Date No Information Patient Care Teams Name Effective Dates (start - stop) Status Members No Information
--- OUTSIDE RECORDS SUMMARY | 2009-03-19 02:30 | XMS_ITS | Continuity of Care Document ---
Author Organization [facility] Address [address] [place] [address] Phone Care Team Providers Care R D Intern Name Role Phone Unavailable Unavailable Unavailable Procedures Procedure Date Extraction erupted tooth or exposed root Extraction erupted tooth or exposed root Periapical first film Palliative tx dental pain minor proc Jan Advance Directives Directive Yes / No Effective Date File Name No Information Encounters Encounter Description Practice Location Reason(s) For Visit Diagnoses Date Provider Providers Copied on Encounter [facility], [address] [place] [address] [place], [id number] tel:[phone] [facility] [place] No Information 4-200 9 No Information [facility], [address] [place] [address] [place], [id number] tel:[phone] [facility] [place] No Information 9-200 9 No Information Family History Family Member Type Diagnosis Age At Onset No Information Payers Payer name Insurance type Covered green party ID Authoriza tion(s) No Information Social History [...]
[2025-04-12] VITALS (9 sets, daily range): BP systolic 158–187; BP diastolic 70–97; PULSE 88–114; RESP 16–17; TEMP 36.8–37.1; O2SAT 93–98; BMI 15.7
--- OUTSIDE RECORDS SUMMARY | 2025-04-12 20:24 | XMS_ITS | Encounter Summary ---
Author Organization Healthcare Address [address] [place] [address] Care Team Providers Care Hydraulic Elevator Constructor Name Role Phone Mode Meek MD Primary Care Provider [phone] Encounter Details Date Type Department Care Team ([facility] st Contact Info) Description 10/20/2024 Orders Only External Location [address] [place] [address] Provider, External Social History Tobacco Use Types Packs/Day Years Used Date Smoking Tobacco: Never Assessed Comments Unknown Sex and Gender Information Value Date Recorded Sex Assigned at Not on file Legal Sex Female 12:09 PM EST Gender Identity Not on file Sexual Orientation Not on file documented as of this encounter Plan of Treatment Not on file documented as of this encounter Procedures Procedure Name Priority Date/Time Associated Diagnosis Comments CT OUTSIDE IMAGES 10/20/2024 1:24 AM EDT documented in this encounter Results * CT OUTSIDE IMAGES (10/20/2024 1:24 AM EDT) Anatomical Region Laterality Modality Computed Tomogra phy 10/20/2024 1:24 AM EDT us External Provider IMG CT PROCEDURES Final Result documented in this encounter Visit Diagnoses Not on filedocumented in this encounter Care Teams Hydraulic Elevator Constructor Relationship Specialty Start Date End Date Mode Meek MD [address] [place] [id number] PCP - General 05/16/20 documented as of this encounter
--- OUTSIDE RECORDS SUMMARY | 2025-04-12 20:24 | XMS_ITS | Encounter Summary ---
Author Organization Healthcare Address [address] [place] [address] Care Team Providers Care Elevator Adjuster Name Role Phone Mode Meek MD Primary Care Provider [phone] Encounter Details Date Type Department Care Team ([facility] st Contact Info) Description 10/20/2024 Orders Only External Location [address] [place] [address] Provider, External Social History Tobacco Use Types [...] Associated Diagnosis Comments CT OUTSIDE IMAGES 10/20/2024 1:30 AM EDT documented in this encounter Results * CT OUTSIDE IMAGES (10/20/2024 1:30 AM EDT) Anatomical Region Laterality Modality Computed Tomogra phy 10/20/2024 1:30 AM EDT us External Provider IMG CT PROCEDURES Final Result documented in this encounter Visit Diagnoses Not on filedocumented in this encounter Care Teams Elevator Adjuster Relationship Specialty Start Date End Date Mode Meek MD [address] [place] [id number] PCP - General 05/16/20 documented as of this encounter
--- OUTSIDE RECORDS SUMMARY | 2025-04-12 20:24 | XMS_ITS | Encounter Summary ---
Author Organization Healthcare Address [address] [place] [address] Care Team Providers Care Joint Sealer Name Role Phone Mode Meek MD Primary Care Provider [phone] Encounter Details Date Type Department Care Team ([facility] st Contact Info) Description 10/20/2024 Orders Only External Location [address] [place] [address] Provider, External Social History Tobacco Use Types [...] on filedocumented in this encounter Care Teams Joint Sealer Relationship Specialty Start Date End Date Mode Meek MD [address] [place] [id number] PCP - General 05/16/20 documented as of this encounter
--- OUTSIDE RECORDS SUMMARY | 2025-04-12 20:24 | XMS_ITS | Clinical Summary ---
Author Organization [facility] Address [address] [place] [address] Care Team Providers Care Escrow Closer Name Role Phone Mode Meek MD Primary Care Provider [phone] Allergies Active Allergy Reactions Criticality Noted Date Comments Sulfa Antibiotics Anaphylaxis,Swelling High 03/23/20 18 Medications loratadine (CLARITIN) 10 MG tablet Take 10 mg by mouth Daily As Needed. Active vitamin D (ERGOCALCIFEROL ) 78358 units capsule capsule Take 50,000 Units by mouth 1 (One) Time Per Week. Active alendronate (FOSAMAX) 70 MG tablet Take 70 mg by mouth Every 7 (Seven) Days. Active gabapentin (NEURONTIN) 400 MG capsule Take 400 mg by mouth 3 (Three) Times a Day. Active aspirin 81 MG EC tablet Take 81 mg by mouth Daily. Active albuterol (PROVENTIL) (2.5 MG/3ML) 0.083% nebulizer solution Take by nebulization Every 6 (Six) Hours As Needed for Wheezing or Shortness of Air. 9 Active clonazePAM (KlonoPIN) 0.5 MG tablet Take 0.5 mg by mouth 2 (Two) Times a Day As Needed for Anxiety. Active albuterol sulfate HFA 108 (90 Base) MCG/ACT inhaler Inhale 2 puffs 3 (Three) Times a Day As Needed for Wheezing. Active atorvastatin (LIPITOR) 40 MG tablet Take 1 tablet by mouth Daily. 30 tablet 3 9 Active clopidogrel (PLAVIX) 75 MG tablet Take 1 tablet by mouth Daily. 30 tablet 3 9 Active HYDROcodone-phi taminophen (NORCO) 5-325 MG per tablet 9 Active aspirin-acetami nophen-caffeine (EXCEDRIN MIGRAINE) 250-250-65 MG per tablet Take 1 tablet by mouth Every 6 (Six) Hours As Needed for Headache. Active amLODIPine (NORVASC) 10 MG tablet Take 10 mg by mouth Daily. Active hydrochlorothia zide (MICROZIDE) 12.5 MG capsule Take 12.5 mg by mouth Daily. Active Active Problems Problem Noted Date Diagnosed Date Stenosis of right carotid artery 06/27/2018 Overview (06/27/2018): Added automatically from request for surgery [id number] Essential hypertension 05/10/2018 Carotid stenosis, bilateral 05/10/2018 Subclavian arterial stenosis 05/10/2018 Anxiety 05/10/2018 Family History Medical History Relation Name Comments Heart attack Father Aneurysm Mother Relation Name Status Comments Father Mother Social History Tobacco Use Types Packs/Day Years Used Date Smoking Tobacco: Every Day Cigarettes 1 50 Smokeless Tobacco: Never Tobacco Cessation:Ready to Q uit: Yes; Counseling Given: Yes Alcohol Use Standard Drinks/Week Comments No 0 (1 standard drink = 0.6 oz pur e alcohol) Abuse Screen Answer Date Recorded Unsafe at Home or Work/School Not on file Feels Threatened by Someone? Not on file 01/2023 Does Anyone Keep You from Co ntacting Others or Doint Things Outside the Home? Not on file 02/21/2023 Physical Sign of Abuse Present Not on file 1 Housing Stability Answer Date Recorded Current Living Arrangements Not on file 01/2023 Potentially Unsafe Housing Conditions Not on tierney e 02/21/2023 Family and Community Support Answer Nicola e Recorded Help with Day-to-Day Activities Not on file 02/21/2023 Lonely or Isolated Not on file 02/21/2023 Employment Answer Date Recorded Do you want help finding or keeping work or a jimmy b? Not on file 02/21/2023 Disabilities Answer Date Recorded Concentrating, Remembering, or Making Decisions Difficulty Not on file 02/21/2023 Doing Errands Independently Difficulty Not on fi le 02/21/2023 Education Answer Date Recorded Help with school or training? Not on file Preferred Language Not on file 02/21/2023 Comments No Sex and Gender Information Value Date Recorded Sex Assigned at Not on file Legal Sex Female 4:00 PM EDT Gender Identity Not on file Sexual Orientation Not on file Occupation Industry Job Start Date Job End Date Not on file Not on file Not on file Not on file Last Filed Vital Signs Vital Sign Reading Time Taken Comments Blood Pressure 172/92 12/14/2018 12:54 PM EDT Pulse 118 12/14/2018 12:54 PM EDT Temperature 36.6 C (97.9 F) 12/14/2018 12:54 PM EDT Respiratory Rate 14 07/18/2018 10:00 AM EST Oxygen Saturation 95% 12/14/2018 12:54 PM EDT Inhaled Oxygen Concentration - - Weight 60.3 kg (133 lb) 12/14/2018 12:54 PM EDT Height 162.6 cm (5' 4 ) 12/14/2018 12:54 PM EDT Body Mass Index 22.83 12/14/2018 12:54 PM EDT Plan of Treatment Health Maintenance Due Date Last Done Comments DXA SCAN 1955 TDAP/TD VACCINES (1 - Tdap) 1973 MAMMOGRAM 1994 COLOGUARD 1999 COLON CANCER SCREENING 5 YEAR SIGMOIDOSCOPY 1999 COLONOSCOPY 1999 [address] CANCER SCREENING 1999 CT COLONOGRAPHY 1999 FECAL OCCULT BLOOD TEST 1999 FIT Testing (1 year) 1999 Pneumococcal Vaccine 50+ (1 of 1 - PCV) 2004 ZOSTER VACCINE (1 of 2) 2004 ANNUAL PHYSICAL 2018 HEPATITIS C SCREENING 2018 INFLUENZA VACCINE 12/14/2024 COVID-19 Vaccine ( - season) 2025 Medical Devices Implanted Type Area Trapeze Performer Device Identifier Shelf Expiration Date Model / Serial / Lot [facility] Vascuguard 1x6cm - [id number] Implanted:Qty: 1 on 07/17/2018 by Anshu Cazares MD at [facility] Implant Right: Carotid [employer] 12/22/2022 [id number] / / [id number] Insurance MEDICARE A & B Member Subscriber Plan / Payer (Ef fective 2019-Present) Name:Anisha Grier Member ID:[id number] Relation to Subscriber:Self Name:Anisha Grier Subscriber ID:[id number] Payer ID:[id number] Group ID:Not on file Type:Not on file Address: [address] MEDICARE ADVANTAGE Advance Directives * CPR (Attempt to Resuscitate) (Latest Code Status on File) Date Activated Date Inactivated Comments 07/17/2018 1:37 PM 07/18/2018 3:11 PM Question Answer Comments Code Status (Patient has no pulse and is not breathing): CPR (Attempt to Resuscitate) Medical Interventions (Patie nt has pulse or is breathing): Full Care Teams Escrow Closer Relationship Specialty Start Date End Date Mode Meek MD [address] [facility] [address] ATTN: [place] [address] PCP - General Emergency Medicine 03/23/18
--- OUTSIDE RECORDS SUMMARY | 2025-04-12 20:24 | XMS_ITS | Data Portability ---
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 Plan of Treatment Reminders Order Date Submit Date Provider Last Modified By Organization Details Last Modified Time Details Appointments FOLLOW UP 15 2025 01:45P Michelle Cesar APRN Not available Not available Not available Lab lipid panel, serum 2024 025 [place] ([place]), [address] [place], [address], 07/13/2024 08:12:45 CBC w/ auto diff 2024 025 [place] [facility] ([place]), [address] [place], [address], 07/13/2024 08:12:44 CMP, serum or plasma 2024 025 [facility]), [address] [place], [address], 07/13/2024 08:12:45 TSH + free T4, serum 2024 025 [facility] ([place]), [address] [place], [address], 07/13/2024 08:12:44 HbA1c (hemoglob in A1c), blood 2024 025 [facility] ([place]), [address] [place], [address], 07/13/2024 08:12:46 cobalamin and folate panel, serum 2024 025 [facility] ([place]), [address] [place], [address], 07/13/2024 08:12:46 vitamin D, 25-hydrox y, total, serum 2024 025 [facility] ([place]), [address] [place], [address], 07/13/2024 08:12:47 noninvasi ve colorecta l cancer DNA + occult blood screening , QL, stool 2024 025 [facility], [address], [place], [address], 10/25/2024 08:21:06 lipid panel, serum 2023 024 [facility] ([place]), [address] [place], [address], 04/12/2024 08:13:11 CBC w/ auto diff 2023 024 [facility] ([place]), [address] [place], [address], 04/12/2024 08:13:10 CMP, serum or plasma 2023 024 [place] [facility] [address] [place], [address], 04/12/2024 08:13:10 HbA1c (hemoglob in A1c), blood 2023 024 [place] [facility] [address] [place], [address], 04/12/2024 08:13:12 vitamin B12 + folate, serum or blood 2023 024 [place] [facility] ([place]), [address] [place], [address], 04/12/2024 08:13:12 vitamin D, 25-hydrox y, total, serum 2023 024 [place] [facility] [address] [place], [address], 04/12/2024 08:13:13 TSH + free T4, serum 2023 024 [place] [facility] ([place]), [address] [place], [address], 04/12/2024 08:13:09 unlisted lab - toxassure flex 19, [id number] -P 2023 024 [place] [facility] [address] [place], [address], 04/17/2024 20:07:28 Referral dermatolo gist referral [address] [facility] Updated 02/01/24, [address] [facility] [address], [place], [address], 03/21/2025 14:34:36 Procedures None recorded. Surgeries None recorded. Imaging LDCT, chest, for lung cancer screening - first avail. [address] ([facility]), [address], [place], [address], 07/20/2024 09:13:15 Medication Orders Colace 100 mg capsule 2024 025 [facility], [address] [place] [address], [id number], 03/19/2025 12:29:16 rosuvasta tin 20 mg tablet 2024 025 [facility], [address] [place] [address], [id number], 03/19/2025 12:29:15 albuterol sulfate HFA 90 mcg/actua tion aerosol inhaler 2024 [employer] [facility], [address] [place] [address], [id number], 03/22/2025 15:44:31 folic acid 1 mg tablet 2024 [place] [employer] [facility], [address] [place] [address], [id number], 03/19/2025 12:29:16 clopidogr el 75 mg tablet 2024 [place] [employer] [facility], [address] [place] [address], [id number], 03/28/2025 18:03:17 losartan 50 mg tablet 2024 [place] [employer] [facility], [address] [place] [address], [id number], 03/19/2025 12:34:17 metoprolo l succinate ER 25 mg tablet,ex tended release 24 hr 2024 [employer] [facility], [address] [place] [address], [id number], 03/28/2025 18:03:18 levothyro xine 25 mcg tablet 2024 025 [employer] [facility], [address] [place] [address], [id number], 03/19/2025 12:29:12 gabapenti n 800 mg tablet 2024 [employer] [facility], [address] [place] [address], [id number], 03/26/2025 05:01:38 rosuvasta tin 20 mg tablet 2024 [employer], [address] [place] [address], [id number], 11/26/2024 13:44:04 nicotine 21 mg/24 hr daily transderm al patch 2024 [facility], [address] [place] [address], [id number], 11/26/2024 13:59:08 folic acid 1 mg tablet 2024 025 [facility], [address] [place] [address], [id number], 11/23/2024 10:41:44 clopidogr el 75 mg tablet 2024 025 [facility], [address] [place] [address], [id number], 11/26/2024 13:44:05 losartan 50 mg tablet 2024 025 [facility], [address] [place] [address], [id number], 11/26/2024 13:44:05 metoprolo l succinate ER 25 mg tablet,ex tended release 24 hr 2024 025 [facility], [address] [place] [address], [id number], 11/26/2024 13:44:08 levothyro xine 25 mcg tablet 2024 025 [facility], [address] [place] [address], [id number], 11/26/2024 13:44:06 gabapenti n 800 mg tablet 2024 025 [facility], [address] [place] [address], [id number], 03/26/2025 05:01:38 losartan 50 mg tablet 2024 025 [place] [facility], [address], [place], [address], 07/12/2024 20:15:21 gabapenti n 800 mg tablet 2024 [facility] [facility], [address], [place], [address], 03/26/2025 05:01:38 Medrol ([place]) 4 mg tablets in a dose pack 2023 [facility], [address], [place], [address], 07/12/2024 13:14:38 albuterol sulfate HFA 90 mcg/actua tion aerosol inhaler 2023 [facility] [facility], [address], [place], [address], 04/10/2024 15:17:33 Trelegy Ellipta 100 mcg-62.5 mcg-25 mcg powder for inhalatio n 2023 [facility], [address], [place], [address], 06/29/2024 15:34:38 clopidogr el 75 mg tablet 2023 [facility] [facility], [address], [place], [address], 04/10/2024 15:32:48 losartan 50 mg tablet 2023 [facility], [address], [place], [address], 04/10/2024 15:32:49 gabapenti n 800 mg tablet 2023 [facility] [facility], [address], [place], [address], 03/26/2025 05:01:38 Patient TargetsNo targets recorded. Patient InstructionsNo instructions recorded. Reason for Referral Machine Rigger Referral for S kin lesion Referring Physician: Radha Cesar, [facility], Encounter Date: 03/19/2025 Results Created Date Observation Date Name Description [...] devin consu ltati on, pleas e call [phone]. ===== ===== ===== ===== ===== ===== ===== ===== ===== ===== ===== ===== ===== === Not Available [facility] ([facility]) [address] [place], [address], 04/17/2024 20:07:27 04/10/20 24 04/17/2024 TOXAS SURE FLEX 19, UR pdf . Not Available [facility] ([facility]) [address] [place], [address], 04/17/2024 20:07:27 04/10/20 24 04/17/2024 TOXAS SURE FLEX 19, UR creatinine 69 mg/dL REFER ENCE RANGE : Ref Range >=20 Not Available [facility] ([facility]) [address] [place], [address], 04/17/2024 20:07:27 04/10/20 24 04/17/2024 TOXAS SURE FLEX 19, UR amphetamines ia Negati ve NG/mL cutoff :300 Not Available [facility] ([facility]) [address] [place], [address], 04/17/2024 20:07:27 04/10/20 24 04/17/2024 TOXAS SURE FLEX 19, UR benzodiazepi xiang Negati ve Not Available [facility] ([facility]) [address] [facility] [place], [address], 04/17/2024 20:07:27 04/10/20 24 04/17/2024 TOXAS SURE FLEX 19, UR diazepam Not Detect ed NG/mg _crea t Not Available [facility] ([facility]) [address] [facility], [place], [address], 04/17/2024 20:07:27 04/10/20 24 04/17/2024 TOXAS SURE FLEX 19, UR desmethyldia zepam Not Detect ed NG/mg _crea t Not Available [facility] ([facility]) [address] [facility], [place], [address], 04/17/2024 20:07:27 04/10/20 24 04/17/2024 TOXAS SURE FLEX 19, UR oxazepam Not Detect ed NG/mg _crea t Not Available [facility] ([facility]) [address] [facility], [place], [address], 04/17/2024 20:07:27 04/10/20 24 04/17/2024 TOXAS SURE [...] gladys Oxaze gladys: None Not Available [facility] ([facility]) [address] [facility], [place], [address], 04/17/2024 20:07:27 04/10/20 24 04/17/2024 TOXAS SURE FLEX 19, UR alprazolam Not Detect ed NG/mg _crea t Not Available [facility] ([facility]) [address] [place], [address], 04/17/2024 20:07:27 04/10/20 24 04/17/2024 TOXAS SURE FLEX 19, UR alpha-hydrox yalprazolam Not Detect ed NG/mg _crea t Not Available [facility] ([facility]) [address] [place], [address], 04/17/2024 20:07:27 04/10/20 24 04/17/2024 TOXAS SURE FLEX 19, UR desalkylflur azepam Not Detect ed NG/mg _crea t Not Available [facility] ([facility]) [address] [place], [address], 04/17/2024 20:07:27 04/10/20 24 04/17/2024 TOXAS SURE FLEX 19, UR lorazepam Not Detect ed NG/mg _crea t Not Available [facility] ([facility]) [address] [place], [address], 04/17/2024 20:07:27 04/10/20 24 04/17/2024 TOXAS SURE FLEX 19, UR alpha-hydrox ytriazolam Not Detect ed NG/mg _crea t Not Available [facility] ([facility]) [address] [place], [address], 04/17/2024 20:07:27 04/10/20 24 04/17/2024 TOXAS SURE FLEX 19, UR clonazepam Not Detect ed NG/mg _crea t Not Available [facility] ([facility]) [address] [place] [address], [address], 04/17/2024 20:07:27 04/10/20 24 04/17/2024 TOXAS SURE FLEX 19, UR 7-aminoclona zepam Not Detect ed NG/mg _crea t Not Available [facility] ([facility]) [address] [place], [address], 04/17/2024 20:07:27 04/10/20 24 04/17/2024 TOXAS SURE FLEX 19, UR midazolam Not Detect ed NG/mg _crea t Not Available [facility] ([facility]) [address] [place], [address], 04/17/2024 20:07:27 04/10/20 24 04/17/2024 TOXAS SURE FLEX 19, UR alpha-hydrox ymidazolam Not Detect ed NG/mg _crea t Not Available [facility] ([facility]) [address] [place], [address], 04/17/2024 20:07:27 04/10/20 24 04/17/2024 TOXAS SURE FLEX 19, UR flunitrazepa m Not Detect ed NG/mg _crea t Not Available [facility] ([facility]) [address] [place], [address], 04/17/2024 20:07:27 04/10/20 24 04/17/2024 TOXAS SURE FLEX 19, UR desmethylflu nitrazepam Not Detect ed NG/mg _crea t Not Available [facility] ([facility]) [address] [place], [address], 04/17/2024 20:07:27 04/10/20 24 04/17/2024 TOXAS SURE FLEX 19, UR cocaine metabolite ia Negati ve NG/mL cutoff :150 Not Available [facility] ([facility]) [address] [place], [address], 04/17/2024 20:07:27 04/10/20 24 04/17/2024 TOXAS SURE FLEX 19, UR ethanol biomarkers ia Negati ve NG/mL cutoff :500 Not Available [facility] ([facility]) [address] [place], [address], 04/17/2024 20:07:27 04/10/20 24 04/17/2024 TOXAS SURE FLEX 19, UR cannabinoids ia Negati ve NG/mL cutoff :20 Not Available [facility] ([facility]) [address] [place], [address], 04/17/2024 20:07:27 04/10/20 24 04/17/2024 TOXAS SURE FLEX 19, UR 6-acetylmorp rhys ia Negati ve NG/mL cutoff :10 Not Available [facility] ([facility]) [address] [place], [address], 04/17/2024 20:07:27 04/10/20 24 04/17/2024 TOXAS SURE FLEX 19, UR opiate class ia Negati ve NG/mL cutoff :100 Not Available [facility] ([facility]) [address] [place], [address], 04/17/2024 20:07:27 04/10/20 24 04/17/2024 TOXAS SURE FLEX 19, UR oxycodone class ia Negati ve NG/mL cutoff :100 Not Available [facility] ([facility]) [address] [place], [address], 04/17/2024 20:07:27 04/10/20 24 04/17/2024 TOXAS SURE FLEX 19, UR methadone ia Negati ve NG/mL cutoff :100 Not Available [facility] ([facility]) [address] [place], [address], 04/17/2024 20:07:27 04/10/20 24 04/17/2024 TOXAS SURE FLEX 19, UR methadone mtb ia Negati ve NG/mL cutoff :100 Not Available [facility] ([facility]) [address] [place], [address], 04/17/2024 20:07:27 04/10/20 24 04/17/2024 TOXAS SURE FLEX 19, UR buprenorphin e ia COMMEN T NG/mL cutoff :5.0 Furth er testi ng indic ated Not Available [facility] ([facility]) [address] [place], [address], 04/17/2024 20:07:27 04/10/20 24 04/17/2024 TOXAS SURE FLEX 19, UR fentanyl ia Negati ve NG/mL cutoff :2.0 Not Available [facility] ([facility]) [address] [place], [address], 04/17/2024 20:07:27 04/10/20 24 04/17/2024 TOXAS SURE FLEX 19, UR tapentadol ia Negati ve NG/mL cutoff :200 Not Available [facility] ([facility]) [address] [place], [address], 04/17/2024 20:07:27 04/10/20 24 04/17/2024 TOXAS SURE FLEX 19, UR propoxyphene ia Negati ve NG/mL cutoff :300 Not Available [facility] ([facility]) [address] [place], [address], 04/17/2024 20:07:27 04/10/20 24 04/17/2024 TOXAS SURE FLEX 19, UR tramadol ia Negati ve NG/mL cutoff :200 Not Available [facility] ([facility]) [address] [place], [address], 04/17/2024 20:07:27 04/10/20 24 04/17/2024 TOXAS SURE FLEX 19, UR methylphenid ate ia Commen t NG/mL cutoff :100 Furth er testi ng indic ated Not Available [facility] ([facility]) [address] [place], [address], 04/17/2024 20:07:27 04/10/20 24 04/17/2024 TOXAS SURE FLEX 19, UR barbiturates ia Negati ve NG/mL cutoff :200 Not Available [facility] ([facility]) [address] [place], [address], 04/17/2024 20:07:27 04/10/20 24 04/17/2024 TOXAS SURE FLEX 19, UR phencyclidin e ia Negati ve NG/mL cutoff :25 Not Available [facility] ([facility]) [address] [place], [address], 04/17/2024 20:07:27 04/10/20 24 04/17/2024 TOXAS SURE FLEX 19, UR gabapentin ia COMMEN T ug/mL cutoff :1.0 Furth er testi ng indic ated Not Available [facility] ([facility]) [address] [place], [address], 04/17/2024 20:07:27 04/10/20 24 04/17/2024 TOXAS SURE FLEX 19, UR anticonvulsa nts +POSIT PANCHO+ Not Available [facility] ([facility]) [address] [place], [address], 04/17/2024 20:07:27 04/10/20 24 04/17/2024 TOXAS SURE FLEX 19, UR pregabalin Not Detect ed Not Available [facility] ([facility]) [address] [place], [address], 04/17/2024 20:07:27 04/10/20 24 04/17/2024 TOXAS SURE FLEX 19, UR carisoprodol ia Negati ve NG/mL cutoff :100 Not Available [facility] ([facility]) [address] [place], [address], 04/17/2024 20:07:27 04/10/20 24 04/17/2024 BUP/N ALOXO NE, MS, UR RFX buprenorphin e +POSIT PANCHO+ Not Available [facility] ([facility]) [address] [facility], [place], [address], 04/17/2024 20:07:28 04/10/20 24 04/17/2024 BUP/N ALOXO NE, MS, UR RFX buprenorphin e 261 NG/mg _crea t Not Available [facility] ([facility]) [address] [facility], [place], [address], 04/17/2024 20:07:28 04/10/20 24 04/17/2024 BUP/N ALOXO NE, MS, UR RFX norbuprenorp rhys >1449 NG/mg _crea t Not Available [facility] ([facility]) [address] [facility], [place], [address], 04/17/2024 20:07:28 04/10/20 24 04/17/2024 BUP/N ALOXO NE, MS, UR RFX N/B ratio >5.56 >=0.3 Not Available [facility] ([facility]) [address] [facility], [place], [address], 04/17/2024 20:07:28 04/10/20 24 04/17/2024 BUP/N ALOXO NE, MS, UR RFX opiate antagonist +POSIT PANCHO+ Not Available [facility] ([facility]) [address] [place], [address], 04/17/2024 20:07:28 04/10/20 24 04/17/2024 BUP/N ALOXO NE, MS, UR RFX naloxone 159 NG/mg _crea t Not Available [facility] ([facility]) [address] [place], [address], 04/17/2024 20:07:28 04/10/20 24 04/17/2024 GABAP ENTIN , MS, UR RFX anticonvulsa nts +POSIT PANCHO+ Not Available [facility] ([facility]) [address] [place], [address], 04/17/2024 20:07:29 04/10/20 24 04/17/2024 GABAP ENTIN , MS, UR RFX gabapentin PRESEN T Not Available [facility] ([facility]) [address] [facility], [place], [address], 04/17/2024 20:07:29 04/10/20 24 04/17/2024 METHY LPHEN IDATE , MS, UR RFX sympathomime tics Negati ve Not Available [facility] ([facility]) [address] [facility], [place], [address], 04/17/2024 20:07:30 04/10/20 24 04/17/2024 METHY LPHEN IDATE , MS, UR RFX methylphenid ate Not Detect ed Not Available [facility] ([facility]) [address] [place], [address], 04/17/2024 20:07:30 04/10/20 24 04/17/2024 METHY LPHEN IDATE , MS, UR RFX ritalinic acid Not Detect ed Not Available [facility] ([facility]) [address] [place], [address], 04/17/2024 20:07:30 04/11/20 24 04/12/2024 TSH+F REE T4 TSH 0.945 uIU/m L 0.450- 4.500 normal Not Available [facility] ([facility]) [address] [place], [address], 04/12/2024 08:13:09 04/11/20 24 04/12/2024 TSH+F REE T4 T4,free(dire ct) 1.35 NG/dL 0.82-1 .77 normal Not Available [facility] ([facility]) [address] [place], [address], 04/12/2024 08:13:09 04/11/20 24 04/12/2024 CBC WITH DIFFE RENTI AL/PL ATELE T WBC 4.9 x10e3 /uL 3.4-10 .8 normal Eff ectiv e Decem elo 2023 profjossue walters [id number] 5 WBC will be made* * non-o rdera ble as a stand -sid e order code. Not Available [facility] ([facility]) [address] [facility], [place], [address], 04/12/2024 08:13:10 04/11/20 24 04/12/2024 CBC WITH DIFFE RENTI AL/PL ATELE T RBC 4.92 x10e6 /uL 3.77-5 .28 normal Not Available [facility] ([facility]) [address] [facility], [place], [address], 04/12/2024 08:13:10 04/11/20 24 04/12/2024 CBC WITH DIFFE RENTI AL/PL ATELE T hemoglobin 13.4 g/dL 11.1-1 5.9 normal Not Available [facility] ([facility]) [address] [facility], [place], [address], 04/12/2024 08:13:10 04/11/20 24 04/12/2024 CBC WITH DIFFE RENTI AL/PL ATELE T hematocrit 41.0 % 34.0-4 6.6 normal Not Available [facility] ([facility]) [address] [facility], [place], [address], 04/12/2024 08:13:10 04/11/20 24 04/12/2024 CBC WITH DIFFE RENTI AL/PL ATELE T MCV 83 fL 79-97 normal Not Available [facility] ([facility]) [address] [place], [address], 04/12/2024 08:13:10 04/11/20 24 04/12/2024 CBC WITH DIFFE RENTI AL/PL ATELE T MCH 27.2 pg 26.6-3 3.0 normal Not Available [facility] ([facility]) [address] [facility], [place], [address], 04/12/2024 08:13:10 04/11/20 24 04/12/2024 CBC WITH DIFFE RENTI AL/PL ATELE T MCHC 32.7 g/dL 31.5-3 5.7 normal Not Available [facility] ([facility]) [address] [facility], [place], [address], 04/12/2024 08:13:10 04/11/20 24 04/12/2024 CBC WITH DIFFE RENTI AL/PL ATELE T RDW 13.7 % 11.7-1 5.4 Not Available [facility] ([facility]) [address] [facility], [place], [address], 04/12/2024 08:13:10 04/11/20 24 04/12/2024 CBC WITH DIFFE RENTI AL/PL ATELE T platelets 226 x10e3 /uL 150-45 0 normal Not Available [facility] ([facility]) [address] [facility], [place], [address], 04/12/2024 08:13:10 04/11/20 24 04/12/2024 CBC WITH DIFFE RENTI AL/PL ATELE T neutrophils 73 % not estab. normal Not Available [facility] ([facility]) [address] [facility], [place], [address], 04/12/2024 08:13:10 04/11/20 24 04/12/2024 CBC WITH DIFFE RENTI AL/PL ATELE T lymphs 21 % not estab. normal Not Available [facility] ([facility]) [address] [facility], [place], [address], 04/12/2024 08:13:10 04/11/20 24 04/12/2024 CBC WITH DIFFE RENTI AL/PL ATELE T monocytes 5 % not estab. normal Not Available [facility] ([facility]) [address] [facility], [place], [address], 04/12/2024 08:13:10 04/11/20 24 04/12/2024 CBC WITH DIFFE RENTI AL/PL ATELE T eos 0 % not estab. normal Not Available [facility] ([facility]) [address] [place], [address], 04/12/2024 08:13:10 04/11/20 24 04/12/2024 CBC WITH DIFFE RENTI AL/PL ATELE T basos 1 % not estab. 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 0 normal Not Available [facility] ([facility]) [address] [place], [address], 04/12/2024 08:13:10 04/11/20 24 04/12/2024 CBC WITH DIFFE RENTI AL/PL ATELE T lymphs (absolute) 1.0 x10e3 /uL 0.7-3. 1 normal Not Available [facility] ([facility]) [address] [place], [address], 04/12/2024 08:13:10 04/11/20 24 04/12/2024 CBC WITH DIFFE RENTI AL/PL ATELE T monocytes(ab solute) 0.3 x10e3 /uL 0.1-0. 9 normal Not Available [facility] ([facility]) [address] [place], [address], 04/12/2024 08:13:10 04/11/20 24 04/12/2024 CBC WITH DIFFE RENTI AL/PL ATELE T eos (absolute) 0.0 x10e3 /uL 0.0-0. 4 normal Not Available [facility] ([facility]) [address] [facility], [place], [address], 04/12/2024 08:13:10 04/11/20 24 04/12/2024 CBC WITH DIFFE RENTI AL/PL ATELE T baso (absolute) 0.0 x10e3 /uL 0.0-0. 2 normal Not Available [facility] ([facility]) [address] [facility], [place], [address], 04/12/2024 08:13:10 04/11/20 24 04/12/2024 CBC WITH DIFFE RENTI AL/PL ATELE T immature granulocytes 0 % not estab. Not Available [facility] ([facility]) [address] [facility], [place], [address], 04/12/2024 08:13:10 04/11/20 24 04/12/2024 CBC WITH DIFFE RENTI AL/PL ATELE T immature grans (abs) 0.0 x10e3 /uL 0.0-0. 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 METAB OLIC PANEL (14) glucose 125 mg/dL 70-99 above high normal Not Available [facility] ([facility]) [address] [facility] [place], [address], 04/12/2024 08:13:10 04/11/20 24 04/12/2024 COMP. METAB OLIC PANEL (14) BUN 21 mg/dL 8-27 normal Not Available [facility] ([facility]) [address] [facility] [place], [address], 04/12/2024 08:13:10 04/11/20 24 04/12/2024 COMP. METAB OLIC PANEL (14) creatinine 0.68 mg/dL 0.57-1 .00 normal Not Available [facility] ([facility]) [address] [place], [address], 04/12/2024 08:13:10 04/11/20 24 04/12/2024 COMP. METAB OLIC PANEL (14) eGFR 94 mL/mi n/1.7 3 >59 normal Not Available [facility] ([facility]) [address] [place], [address], 04/12/2024 08:13:10 04/11/20 24 04/12/2024 COMP. METAB OLIC PANEL (14) BUN/creatini ne ratio 31 12-28 above high normal Not Available [facility] ([facility]) [address] [place], [address], 04/12/2024 08:13:10 04/11/20 24 04/12/2024 COMP. METAB OLIC PANEL (14) sodium 125 mmol/ L 134-14 4 below low normal Not Available [facility] ([facility]) [address] [place], [address], 04/12/2024 08:13:10 04/11/20 24 04/12/2024 COMP. METAB OLIC PANEL (14) potassium 5.8 mmol/ L 3.5-5. 2 above high normal Not Available [facility] ([facility]) [address] [facility], [place], [address], 04/12/2024 08:13:10 04/11/20 24 04/12/2024 COMP. METAB OLIC PANEL (14) chloride 91 mmol/ L 96-106 below low normal Not Available [facility] ([facility]) [address] [facility], [place], [address], 04/12/2024 08:13:10 04/11/20 24 04/12/2024 COMP. METAB OLIC PANEL (14) carbon dioxide, total 19 mmol/ L 20-29 below low normal Not Available [facility] ([facility]) [address] [facility], [place], [address], 04/12/2024 08:13:10 04/11/20 24 04/12/2024 COMP. METAB OLIC PANEL (14) calcium 9.0 mg/dL 8.7-10 .3 normal Not Available [facility] ([facility]) [address] [facility], [place], [address], 04/12/2024 08:13:10 04/11/20 24 04/12/2024 COMP. METAB OLIC PANEL (14) protein, total 7.7 g/dL 6.0-8. 5 normal Not Available [facility] ([facility]) [address] [place], [address], 04/12/2024 08:13:10 04/11/20 24 04/12/2024 COMP. METAB OLIC PANEL (14) albumin 4.0 g/dL 3.9-4. 9 normal Not Available [facility] ([facility]) [address] [facility], [place], [address], 04/12/2024 08:13:10 04/11/20 24 04/12/2024 COMP. METAB OLIC PANEL (14) globulin, total 3.7 g/dL 1.5-4. 5 Not Available [facility] ([facility]) [address] [facility] [place], [address], 04/12/2024 08:13:10 04/11/20 24 04/12/2024 COMP. METAB OLIC PANEL (14) bilirubin, total 0.3 mg/dL 0.0-1. 2 normal Not Available [facility] ([facility]) [address] [facility] [place], [address], 04/12/2024 08:13:10 04/11/20 24 04/12/2024 COMP. METAB OLIC PANEL (14) alkaline phosphatase 106 IU/L 44-121 normal Not Available [facility] ([facility]) [address] [facility] [place], [address], 04/12/2024 08:13:10 04/11/20 24 04/12/2024 COMP. METAB OLIC PANEL (14) AST (SGOT) 18 IU/L 0-40 normal Not Available [facility] ([facility]) [address] [facility] [place], [address], 04/12/2024 08:13:10 04/11/20 24 04/12/2024 COMP. METAB OLIC PANEL (14) ALT (SGPT) 8 IU/L 0-32 normal Not Available [facility] ([facility]) [address] [facility] [place], [address], 04/12/2024 08:13:10 04/11/20 24 04/12/2024 LIPID PANEL cholesterol, total 116 mg/dL 100-19 9 normal Not Available [facility] ([facility]) [address] [facility] [place], [address], 04/12/2024 08:13:11 04/11/20 24 04/12/2024 LIPID PANEL triglyceride s 152 mg/dL 0-149 above high normal Not Available [facility] ([facility]) [address] [facility] [place], [address], 04/12/2024 08:13:11 04/11/20 24 04/12/2024 LIPID PANEL HDL cholesterol 34 mg/dL >39 below low normal Not Available [facility] ([facility]) [address] [facility] [place], [address], 04/12/2024 08:13:11 04/11/20 24 04/12/2024 LIPID PANEL VLDL cholesterol devin 26 mg/dL 5-40 Not Available [facility] ([facility]) [address] [facility] [place], [address], 04/12/2024 08:13:11 04/11/20 24 04/12/2024 LIPID PANEL LDL chol calc ([facility]) 56 mg/dL 0-99 Not Available [facility] ([facility]) [address] [facility] [place], [address], 04/12/2024 08:13:11 04/11/20 24 04/12/2024 LIPID PANEL 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 Not Available [facility] ([facility]) [address] [facility], [place], [address], 04/12/2024 08:13:11 04/11/20 24 04/12/2024 VITAM IN B12 AND FOLAT E vitamin B12 529 pg/mL 232-12 45 normal Not Available [facility] ([facility]) [address] [place], [address], 04/12/2024 08:13:12 04/11/20 24 04/12/2024 VITAM IN B12 AND FOLAT E folate (folic acid), serum 2.4 NG/mL >3.0 below low normal A serum folat e aida ntrat ion of less than 3.1 ng/mL is consi dered to repre sent clini devin defic iency . Not Available [facility] ([facility]) [address] [facility] [place], [address], 04/12/2024 08:13:12 04/11/20 24 04/12/2024 HEMOG LOBIN A1C hemoglobin A1C 6.0 % 4.8-5. 6 above high normal Predi abete s: 5.7 - 6.4 Diabe jovanni: >6.4 Glyce lexii contr ol for adult s with diabe jovanni: <7.0 Not Available [facility] ([facility]) [address] [facility], [place], [address], 04/12/2024 08:13:12 04/11/20 24 04/12/2024 VITAM IN [...] 1. IOM (Inst itute of Medic ine). 2009. Dieta ry refer ence vivian es for calci um and D. An muñoz DC: The Natpending sale to [facility] Press . 2. Tyra patel MF, Shawanda ey [place], Christianne off-F errar i KEATING, et al. Evalu ation , treat ment, and preve ntion of vitam in D defic iency : an Endoc rine Socie ty clini devin pract ice guide line. JCEM. 2010; 96(7) :1911 -30. Not Available [facility] ([facility]) [address] [facility], [place], [address], 04/12/2024 08:13:13 07/12/19 25 07/13/2024 TSH+F REE T4 TSH 1.640 uIU/m L 0.450- 4.500 normal Not Available [facility] ([facility]) [address] [place], [address], 07/13/2024 08:12:44 07/12/1907/13/2024 TSH+F REE T4 T4,free(dire ct) 1.40 NG/dL 0.82-1 .77 normal Not Available [facility] ([facility]) [address] [place], [address], 07/13/2024 08:12:44 07/12/19 25 07/13/2024 CBC WITH DIFFE RENTI AL/PL ATELE T WBC 5.8 x10e3 /uL 3.4-10 .8 normal Not Available [facility] ([facility]) [address] [place], [address], 07/13/2024 08:12:44 07/12/19 25 07/13/2024 CBC WITH DIFFE RENTI AL/PL ATELE T RBC 5.18 x10e6 /uL 3.77-5 .28 normal Not Available [facility] ([facility]) [address] [place], [address], 07/13/2024 08:12:44 07/12/1907/13/2024 CBC WITH DIFFE RENTI AL/PL ATELE T hemoglobin 14.0 g/dL 11.1-1 5.9 normal Not Available [facility] ([facility]) [address] [place], [address], 07/13/2024 08:12:44 07/12/1907/13/2024 CBC WITH DIFFE RENTI AL/PL ATELE T hematocrit 43.8 % 34.0-4 6.6 normal Not Available [facility] ([facility]) [address] [place], [address], 07/13/2024 08:12:44 07/12/19 25 07/13/2024 CBC WITH DIFFE RENTI AL/PL ATELE T MCV 85 fL 79-97 normal Not Available [facility] ([facility]) [address] [place], [address], 07/13/2024 08:12:44 07/12/19 25 07/13/2024 CBC WITH DIFFE RENTI AL/PL ATELE T MCH 27.0 pg 26.6-3 3.0 normal Not Available [facility] ([facility]) [address] [facility], [place], [address], 07/13/2024 08:12:44 07/12/19 25 07/13/2024 CBC WITH DIFFE RENTI AL/PL ATELE T MCHC 32.0 g/dL 31.5-3 5.7 normal Not Available [facility] ([facility]) [address] [facility], [place], [address], 07/13/2024 08:12:44 07/12/19 25 07/13/2024 CBC WITH DIFFE RENTI AL/PL ATELE T RDW 13.6 % 11.7-1 5.4 Not Available [facility] ([facility]) [address] [facility], [place], [address], 07/13/2024 08:12:44 07/12/19 25 07/13/2024 CBC WITH DIFFE RENTI AL/PL ATELE T platelets 264 x10e3 /uL 150-45 0 normal Not Available [facility] ([facility]) [address] [place], [address], 07/13/2024 08:12:44 07/12/19 25 07/13/2024 CBC WITH DIFFE RENTI AL/PL ATELE T neutrophils 63 % not estab. normal Not Available [facility] ([facility]) [address] [place], [address], 07/13/2024 08:12:44 07/12/19 25 07/13/2024 CBC WITH DIFFE RENTI AL/PL ATELE T lymphs 26 % not estab. normal Not Available [facility] ([facility]) [address] [place], [address], 07/13/2024 08:12:44 07/12/19 25 07/13/2024 CBC WITH DIFFE RENTI AL/PL ATELE T monocytes 9 % not estab. normal Not Available [facility] ([facility]) [address] [place], [address], 07/13/2024 08:12:44 07/12/19 25 07/13/2024 CBC WITH DIFFE RENTI AL/PL ATELE T eos 1 % not estab. normal Not Available [facility] ([facility]) [address] [place], [address], 07/13/2024 08:12:44 07/12/19 25 07/13/2024 CBC WITH DIFFE RENTI AL/PL ATELE T basos 1 % not estab. normal Not Available [facility] ([facility]) [address] [place], [address], 07/13/2024 08:12:44 07/12/19 25 07/13/2024 CBC WITH DIFFE RENTI AL/PL ATELE T immature cells BLENDING LINE ATTENDANT Not Available [facility] ([facility]) [address] [place], [address], 07/13/2024 08:12:44 07/12/19 25 07/13/2024 CBC WITH DIFFE RENTI AL/PL ATELE T neutrophils (absolute) 3.6 x10e3 /uL 1.4-7. 0 normal Not Available [facility] ([facility]) [address] [place], [address], 07/13/2024 08:12:44 07/12/19 25 07/13/2024 CBC WITH DIFFE RENTI AL/PL ATELE T lymphs (absolute) 1.5 x10e3 /uL 0.7-3. 1 normal Not Available [facility] ([facility]) [address] [place], [address], 07/13/2024 08:12:44 07/12/19 25 07/13/2024 CBC WITH DIFFE RENTI AL/PL ATELE T monocytes(ab solute) 0.5 x10e3 /uL 0.1-0. 9 normal Not Available [facility] ([facility]) [address] [facility], [place], [address], 07/13/2024 08:12:44 07/12/19 25 07/13/2024 CBC WITH DIFFE RENTI AL/PL ATELE T eos (absolute) 0.1 x10e3 /uL 0.0-0. 4 normal Not Available [facility] ([facility]) [address] [place], [address], 07/13/2024 08:12:44 07/12/19 25 07/13/2024 CBC WITH DIFFE RENTI AL/PL ATELE T baso (absolute) 0.0 x10e3 /uL 0.0-0. 2 normal Not Available [facility] ([facility]) [address] [facility], [place], [address], 07/13/2024 08:12:44 07/12/19 25 07/13/2024 CBC WITH DIFFE RENTI AL/PL ATELE T immature granulocytes 0 % not estab. Not Available [facility] ([facility]) [address] [place], [address], 07/13/2024 08:12:44 07/12/19 25 07/13/2024 CBC WITH DIFFE RENTI AL/PL ATELE T immature grans (abs) 0.0 x10e3 /uL 0.0-0. 1 Not Available [facility] ([facility]) [address] [place], [address], 07/13/2024 08:12:44 07/12/19 25 07/13/2024 CBC WITH DIFFE RENTI AL/PL ATELE T NRBC BLENDING LINE ATTENDANT Not Available [facility] ([facility]) [address] [place], [address], 07/13/2024 08:12:44 07/12/19 25 07/13/2024 CBC WITH DIFFE MAYELIN AL/OPHELIA Ashley hematology comments: BLENDING LINE ATTENDANT Not Available [facility] ([facility]) [address] [facility], [place], [address], 07/13/2024 08:12:44 07/12/19 25 07/13/2024 COMP. METAB OLIC PANEL (14) glucose 109 mg/dL 70-99 above high normal Not Available [facility] ([facility]) [address] [facility], [place], [address], 07/13/2024 08:12:45 07/12/19 25 07/13/2024 COMP. METAB OLIC PANEL (14) BUN 16 mg/dL 8-27 normal Not Available [facility] ([facility]) [address] [facility], [place], [address], 07/13/2024 08:12:45 07/12/19 25 07/13/2024 COMP. METAB OLIC PANEL (14) creatinine 0.85 mg/dL 0.57-1 .00 normal Not Available [facility] ([facility]) [address] [facility], [place], [address], 07/13/2024 08:12:45 07/12/19 25 07/13/2024 COMP. METAB OLIC PANEL (14) eGFR 74 mL/mi n/1.7 3 >59 normal Not Available [facility] ([facility]) [address] [facility], [place], [address], 07/13/2024 08:12:45 07/12/19 25 07/13/2024 COMP. METAB OLIC PANEL (14) BUN/creatini ne ratio 19 12-28 normal Not Available [facility] ([facility]) [address] [facility], [place], [address], 07/13/2024 08:12:45 07/12/19 25 07/13/2024 COMP. METAB OLIC PANEL (14) sodium 133 mmol/ L 134-14 4 below low normal Not Available [facility] ([facility]) [address] [facility] [place], [address], 07/13/2024 08:12:45 07/12/19 25 07/13/2024 COMP. METAB OLIC PANEL (14) potassium 5.1 mmol/ L 3.5-5. 2 normal Not Available [facility] ([facility]) [address] [facility] [place], [address], 07/13/2024 08:12:45 07/12/19 25 07/13/2024 COMP. METAB OLIC PANEL (14) chloride 98 mmol/ L 96-106 normal Not Available [facility] ([facility]) [address] [facility] [place], [address], 07/13/2024 08:12:45 07/12/19 25 07/13/2024 COMP. METAB OLIC PANEL (14) carbon dioxide, total 20 mmol/ L 20-29 normal Not Available [facility] ([facility]) [address] [place], [address], 07/13/2024 08:12:45 07/12/19 25 07/13/2024 COMP. METAB OLIC PANEL (14) calcium 8.9 mg/dL 8.7-10 .3 normal Not Available [facility] ([facility]) [address] [place], [address], 07/13/2024 08:12:45 07/12/19 25 07/13/2024 COMP. METAB OLIC PANEL (14) protein, total 7.7 g/dL 6.0-8. 5 normal Not Available [facility] ([facility]) [address] [place], [address], 07/13/2024 08:12:45 07/12/19 25 07/13/2024 COMP. METAB OLIC PANEL (14) albumin 3.9 g/dL 3.9-4. 9 normal Not Available [facility] ([facility]) [address] [place], [address], 07/13/2024 08:12:45 07/12/19 25 07/13/2024 COMP. METAB OLIC PANEL (14) globulin, total 3.8 g/dL 1.5-4. 5 Not Available [facility] ([facility]) [address] [place], [address], 07/13/2024 08:12:45 07/12/19 25 07/13/2024 COMP. METAB OLIC PANEL (14) bilirubin, total 0.2 mg/dL 0.0-1. 2 normal Not Available [facility] ([facility]) [address] [place], [address], 07/13/2024 08:12:45 07/12/19 25 07/13/2024 COMP. METAB OLIC PANEL (14) alkaline phosphatase 110 IU/L 44-121 normal Not Available [facility] ([facility]) [address] [place], [address], 07/13/2024 08:12:45 07/12/19 25 07/13/2024 COMP. METAB OLIC PANEL (14) AST (SGOT) 20 IU/L 0-40 normal Not Available [facility] ([facility]) [address] [facility] [place], [address], 07/13/2024 08:12:45 07/12/19 25 07/13/2024 COMP. METAB OLIC PANEL (14) ALT (SGPT) 8 IU/L 0-32 normal Not Available [facility] ([facility]) [address] [facility] [place], [address], 07/13/2024 08:12:45 07/12/19 25 07/13/2024 LIPID PANEL cholesterol, total 105 mg/dL 100-19 9 normal Not Available [facility] ([facility]) [address] [place], [address], 07/13/2024 08:12:45 07/12/19 25 07/13/2024 LIPID PANEL triglyceride s 131 mg/dL 0-149 normal Not Available [facility] ([facility]) [address] [facility] [place], [address], 07/13/2024 08:12:45 07/12/19 25 07/13/2024 LIPID PANEL HDL cholesterol 29 mg/dL >39 below low normal Not Available [facility] ([facility]) [address] [place], [address], 07/13/2024 08:12:45 07/12/19 25 07/13/2024 LIPID PANEL VLDL cholesterol devin 23 mg/dL 5-40 Not Available [facility] ([facility]) [address] [place], [address], 07/13/2024 08:12:45 07/12/19 25 07/13/2024 LIPID PANEL LDL chol calc ([facility]) 53 mg/dL 0-99 Not Available [facility] ([facility]) [address] [place], [address], 07/13/2024 08:12:45 07/12/19 25 07/13/2024 LIPID PANEL 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 Not Available [facility] ([facility]) [address] [facility], [place], [address], 07/13/2024 08:12:46 07/12/19 25 07/13/2024 HEMOG LOBIN A1C hemoglobin A1C 6.0 % 4.8-5. 6 above high normal Predi abete s: 5.7 - 6.4 Diabe jovanni: >6.4 Glyce lexii contr ol for adult s with diabe jovanni: <7.0 Not Available [facility] ([facility]) [address] [facility], [place], [address], 07/13/2024 08:12:46 07/12/19 25 07/13/2024 VITAM IN [...] Endoc rine Socie ty went on to [facility] er defin e vitam in D insuf ficie ncy as a level betwe en 21 and 29 ng/mL (2). 1. IOM (Inst itute of Medic ine). 2009. Dieta ry refer ence intak es for calci um and D. An muñoz DC: The Natio nal [facility] Press . 2. Tyra patel MF, Shawanda ey [place], Christianne off-F errar i KEATING, et al. Evalu ation , treat ment, and preve ntion of vitam in D defic iency : an Endoc rine Socie ty clini devin pract ice guide line. JCEM. 2010; 96(7) :1911 -30. Not Available [facility] ([facility]) [address] [facility], [place], [address], 07/13/2024 08:12:46 08/21/19 25 08/21/2024 CBC WITH DIFFE RENTI AL/PL ATELE T WBC 8.4 x10e3 /uL 3.4-10 .8 normal Not Available [facility] ([facility]) [address] [place], [address], 08/21/2024 08:25:57 08/21/1908/21/2024 CBC WITH DIFFE RENTI AL/PL ATELE T RBC 5.35 x10e6 /uL 3.77-5 .28 above high normal Not Available [facility] ([facility]) [address] [place], [address], 08/21/2024 08:25:57 08/21/19 25 08/21/2024 CBC WITH DIFFE RENTI AL/PL ATELE T hemoglobin 14.2 g/dL 11.1-1 5.9 normal Not Available [facility] ([facility]) [address] [place], [address], 08/21/2024 08:25:57 08/21/1908/21/2024 CBC WITH DIFFE RENTI AL/PL ATELE T hematocrit 45.2 % 34.0-4 6.6 normal Not Available [facility] ([facility]) [address] [place], [address], 08/21/2024 08:25:57 08/21/1908/21/2024 CBC WITH DIFFE RENTI AL/PL ATELE T MCV 85 fL 79-97 normal Not Available [facility] ([facility]) [address] [place], [address], 08/21/2024 08:25:57 08/21/1908/21/2024 CBC WITH DIFFE RENTI AL/PL ATELE T MCH 26.5 pg 26.6-3 3.0 below low normal Not Available [facility] ([facility]) [address] [place], [address], 08/21/2024 08:25:57 08/21/19 25 08/21/2024 CBC WITH DIFFE RENTI AL/PL ATELE T MCHC 31.4 g/dL 31.5-3 5.7 below low normal Not Available [facility] ([facility]) [address] [facility] [place], [address], 08/21/2024 08:25:57 08/21/19 25 08/21/2024 CBC WITH DIFFE RENTI AL/PL ATELE T RDW 13.8 % 11.7-1 5.4 Not Available [facility] ([facility]) [address] [place], [address], 08/21/2024 08:25:57 08/21/19 25 08/21/2024 CBC WITH DIFFE RENTI AL/PL ATELE T platelets 274 x10e3 /uL 150-45 0 normal Not Available [facility] ([facility]) [address] [place], [address], 08/21/2024 08:25:57 08/21/19 25 08/21/2024 CBC WITH DIFFE RENTI AL/PL ATELE T neutrophils 62 % not estab. normal Not Available [facility] ([facility]) [address] [place], [address], 08/21/2024 08:25:57 08/21/19 25 08/21/2024 CBC WITH DIFFE RENTI AL/PL ATELE T lymphs 27 % not estab. normal Not Available [facility] ([facility]) [address] [place], [address], 08/21/2024 08:25:57 08/21/19 25 08/21/2024 CBC WITH DIFFE RENTI AL/PL ATELE T monocytes 8 % not estab. normal Not Available [facility] ([facility]) [address] [place], [address], 08/21/2024 08:25:57 08/21/19 25 08/21/2024 CBC WITH DIFFE RENTI AL/PL ATELE T eos 2 % not estab. normal Not Available [facility] ([facility]) [address] [place], [address], 08/21/2024 08:25:57 08/21/19 25 08/21/2024 CBC WITH DIFFE RENTI AL/PL ATELE T basos 1 % not estab. normal Not Available [facility] ([facility]) [address] [place], [address], 08/21/2024 08:25:57 08/21/19 25 08/21/2024 CBC WITH DIFFE RENTI AL/PL ATELE T immature cells BLENDING LINE ATTENDANT Not Available [facility] ([facility]) [address] [place], [address], 08/21/2024 08:25:57 08/21/19 25 08/21/2024 CBC WITH DIFFE RENTI AL/PL ATELE T neutrophils (absolute) 5.2 x10e3 /uL 1.4-7. 0 normal Not Available [facility] ([facility]) [address] [place], [address], 08/21/2024 08:25:57 08/21/19 25 08/21/2024 CBC WITH DIFFE RENTI AL/PL ATELE T lymphs (absolute) 2.2 x10e3 /uL 0.7-3. 1 normal Not Available [facility] ([facility]) [address] [place], [address], 08/21/2024 08:25:57 08/21/19 25 08/21/2024 CBC WITH DIFFE RENTI AL/PL ATELE T monocytes(ab solute) 0.6 x10e3 /uL 0.1-0. 9 normal Not Available [facility] ([facility]) [address] [place], [address], 08/21/2024 08:25:57 08/21/19 25 08/21/2024 CBC WITH DIFFE RENTI AL/PL ATELE T eos (absolute) 0.2 x10e3 /uL 0.0-0. 4 normal Not Available [facility] ([facility]) [address] [facility], [place], [address], 08/21/2024 08:25:57 08/21/19 25 08/21/2024 CBC WITH DIFFE RENTI AL/PL ATELE T baso (absolute) 0.1 x10e3 /uL 0.0-0. 2 normal Not Available [facility] ([facility]) [address] [facility], [place], [address], 08/21/2024 08:25:57 08/21/19 25 08/21/2024 CBC WITH DIFFE RENTI AL/PL ATELE T immature granulocytes 0 % not estab. Not Available [facility] ([facility]) [address] [facility], [place], [address], 08/21/2024 08:25:57 08/21/19 25 08/21/2024 CBC WITH DIFFE RENTI AL/PL ATELE T immature grans (abs) 0.0 x10e3 /uL 0.0-0. 1 Not Available [facility] ([facility]) [address] [facility], [place], [address], 08/21/2024 08:25:57 08/21/1908/21/2024 CBC WITH DIFFE RENTI AL/PL ATELE T NRBC BLENDING LINE ATTENDANT Not Available [facility] ([facility]) [address] [facility], [place], [address], 08/21/2024 08:25:57 08/21/19 25 08/21/2024 CBC WITH DIFFE RENTI AL/PL ATELE T hematology comments: BLENDING LINE ATTENDANT Not Available [facility] ([facility]) [address] [place], [address], 08/21/2024 08:25:57 08/21/19 25 08/21/2024 COMP. METAB OLIC PANEL (14) glucose 118 mg/dL 70-99 above high normal Not Available [facility] ([facility]) [address] [place], [address], 08/21/2024 08:25:58 08/21/19 25 08/21/2024 COMP. METAB OLIC PANEL (14) BUN 15 mg/dL 8-27 normal Not Available [facility] ([facility]) [address] [place], [address], 08/21/2024 08:25:58 08/21/19 25 08/21/2024 COMP. METAB OLIC PANEL (14) creatinine 0.78 mg/dL 0.57-1 .00 normal Not Available [facility] ([facility]) [address] [place], [address], 08/21/2024 08:25:58 08/21/19 25 08/21/2024 COMP. METAB OLIC PANEL (14) eGFR 82 mL/mi n/1.7 3 >59 normal Not Available [facility] ([facility]) [address] [place], [address], 08/21/2024 08:25:58 08/21/19 25 08/21/2024 COMP. METAB OLIC PANEL (14) BUN/creatini ne ratio 19 12-28 normal Not Available [facility] ([facility]) [address] [place], [address], 08/21/2024 08:25:58 08/21/19 25 08/21/2024 COMP. METAB OLIC PANEL (14) sodium 135 mmol/ L 134-14 4 normal Not Available [facility] ([facility]) [address] [place], [address], 08/21/2024 08:25:58 08/21/19 25 08/21/2024 COMP. METAB OLIC PANEL (14) potassium 4.6 mmol/ L 3.5-5. 2 normal Not Available [facility] ([facility]) [address] [facility] [place], [address], 08/21/2024 08:25:58 08/21/19 25 08/21/2024 COMP. METAB OLIC PANEL (14) chloride 97 mmol/ L 96-106 normal Not Available [facility] ([facility]) [address] [facility] [place], [address], 08/21/2024 08:25:58 08/21/19 25 08/21/2024 COMP. METAB OLIC PANEL (14) carbon dioxide, total 21 mmol/ L 20-29 normal Not Available [facility] ([facility]) [address] [facility] [place], [address], 08/21/2024 08:25:58 08/21/19 25 08/21/2024 COMP. METAB OLIC PANEL (14) calcium 10.0 mg/dL 8.7-10 .3 normal Not Available [facility] ([facility]) [address] [facility] [place], [address], 08/21/2024 08:25:58 08/21/19 25 08/21/2024 COMP. METAB OLIC PANEL (14) protein, total 7.5 g/dL 6.0-8. 5 normal Not Available [facility] ([facility]) [address] [facility] [place], [address], 08/21/2024 08:25:58 08/21/19 25 08/21/2024 COMP. METAB OLIC PANEL (14) albumin 3.9 g/dL 3.9-4. 9 normal Not Available [facility] ([facility]) [address] [facility] [place], [address], 08/21/2024 08:25:58 08/21/19 25 08/21/2024 COMP. METAB OLIC PANEL (14) globulin, total 3.6 g/dL 1.5-4. 5 Not Available [facility] ([facility]) [address] [facility] [place], [address], 08/21/2024 08:25:58 08/21/19 25 08/21/2024 COMP. METAB OLIC PANEL (14) bilirubin, total <0.2 mg/dL 0.0-1. 2 Not Available [facility] ([facility]) [address] [facility] [place], [address], 08/21/2024 08:25:58 08/21/19 25 08/21/2024 COMP. METAB OLIC PANEL (14) alkaline phosphatase 101 IU/L 44-121 normal Not Available [facility] ([facility]) [address] [facility] [place], [address], 08/21/2024 08:25:58 08/21/19 25 08/21/2024 COMP. METAB OLIC PANEL (14) AST (SGOT) 18 IU/L 0-40 normal Not Available [facility] ([facility]) [address] [facility] [place], [address], 08/21/2024 08:25:58 08/21/19 25 08/21/2024 COMP. METAB OLIC PANEL (14) ALT (SGPT) 7 IU/L 0-32 normal Not Available [facility] ([facility]) [address] [place], [address], 08/21/2024 08:25:58 08/21/19 25 08/21/2024 VITAM IN B12 AND FOLAT E vitamin B12 483 pg/mL 232-12 45 normal Not Available [facility] ([facility]) [address] [place], [address], 08/21/2024 08:25:59 08/21/19 25 08/21/2024 VITAM IN B12 AND FOLAT E folate (folic acid), serum >20.0 NG/mL >3.0 A serum folat e aida ntrat ion of less than 3.1 ng/mL is consi dered to repre sent clini devin defic iency . Not Available [facility] ([facility]) [address], [place], [address], 08/21/2024 08:25:59 04/16/20 24 01/04/2024 MAMMO , scree bill, digit al, bilat eral No observ ation record ed. [email or web address] [facility] [address], [place], [place], [address], 07/17/2024 12:38:43 10/21/19 25 10/20/2024 CT, head + brain , w/o contr ast No observ ation record ed. [address], [place], [place], [address], 10/22/2024 14:23:53 10/21/19 25 10/20/2024 CT, angio gram, chest , w/o contr ast No observ ation record ed. [address], [place], [place], [address], 10/22/2024 14:21:49 10/21/19 25 10/20/2024 XR, chest No observ ation record ed. [address], [place], [place], [address], 10/22/2024 14:22:12 10/21/19 25 10/20/2024 CT, angio gram, head, w/ contr ast No observ ation record ed. [place] [address], [place], [address], 10/22/2024 14:22:32 10/21/19 25 10/20/2024 CT, angio gram, neck, w/wo contr ast No observ ation record ed. [address], [place], [place], [address], 10/22/2024 14:22:58 10/21/19 25 10/20/2024 CT, angio gram, head, w/ contr ast No observ ation record ed. [address], [place], [address], 10/22/2024 14:23:12 10/21/19 25 10/19/2024 elect rocar diogr am No observ ation record ed. [address], [place], [address], 10/22/2024 14:23:26 10/21/19 25 10/20/2024 elect rocar diogr am No observ ation record ed. [address], [place], [address], 10/22/2024 14:23:39 10/28/19 25 10/27/2024 CT, scano gram, w/o contr ast No observ ation record ed. [address], [place], [address], 10/29/2024 10:33:25 10/28/19 25 10/27/2024 CT, scano gram, w/o contr ast No observ ation record ed. [address], [place], [address], 10/29/2024 10:33:00 11/06/19 25 11/05/2024 XR, chest , 1 view No observ ation record ed. [address], [place], [address], 11/06/2024 14:43:33 11/06/19 25 11/05/2024 XR, chest , 1 view No observ ation record ed. [address], [place], [address], 11/06/2024 14:43:04 Result Notes None recorded. Problems Name Problem SNOMED Code Status Onset Date Resolution Date Notes Provider Name and Address Organization Details Recorded Time Lung mass 162095522 Active 2024 Layla piper, [employer] 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 5 11:57:34 Chronic obstructive pulmonary disease 61348182 Active 2024 Laylasebastien Park [employer], [employer] 5 13:34:30 Hemoptysis 16414553 Active 2024 Layla piper, [employer] 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 17:53:32 Problem Notes None recorded. Procedures Surgical History Date Name Laterality Status Provider Name and Address Organization Details Recorded Time 5 biopsy of lung completed [facility]la [employer] 11/23/2024 11:58:53 4 Most Recent Mammogram completed [employer] 04/10/2024 14:41:12 Imaging Results None recorded. Procedure Notes None recorded. Medical Equipment None Reported. Allergies Allergen ID Allergen Name Allergen Category Reaction Reaction Severity Criticality Documentation Date Start Date Code Code System Note Provider Name and Address Organization Details Recorded Time 44981 Substance with sulfonami de structure and antibacte rial mechanism of action (substanc e) medicatio n itching rash Not available Not available Not available 04/10/2024 56904 8003 SNPARMINDER piper [facility] [employer] [place], [facility]. 4 14:16:46 Medications Name Sig Start Date Stop Date Status Note LastModified by Organization Details LastModified Time losartan 50 mg tablet Take 1.5 tablets every day by oral route for 90 days. 2024 active Not Available Not Available Not Avai lable alendronate 10 mg tablet 04/10 completed Not Available Not Available Not Available Colace 100 mg capsule Take 1 capsule every day by oral route. 2024 active Not Available Not Available Not Avai lable gabapentin 600 mg tablet 04/10 completed Not Available Not Available Not Available albuterol sulfate 1.25 mg/3 mL solution for nebulizatio n INHALE CONTENTS OF 1 VIAL USING A NEBULIZER EVERY 6 HOURS NEEDED active Not Available Not Available No t Available prednisone 20 mg tablet TAKE TWO TABLETS BY MOUTH EVERY DAY FOR 3 DAYS --TAKE WITH FOOD-- 11/23 completed Not Available Not Available Not Available [...] tablet every day by oral route for 90 days. 2024 active Not Available Not Available Not Avai lable gabapentin 800 mg tablet Take 1 tablet 3 times a day by oral route for 14 days. 03/26 completed Not Available Not Available Not Available nicotine 21 mg/24 hr daily transdermal patch Apply 1 patch every day by transderm al route. 2024 active Not Available Not Available Not Avai lable folic acid 1 mg tablet Take 1 tablet every day by oral route for 90 days. 2024 active Not Available Not Available Not Avai lable hydrochloro thiazide 25 mg tablet 04/10 completed Not Available Not Available Not Available metoprolol succinate ER 25 mg tablet,exte nded release 24 hr TAKE 1 TABLET 1 TIME EACH DAY active Not Available Not Available No t Available levofloxaci n 750 mg tablet TAKE ONE TABLET BY MOUTH every 48 hours FOR 4 DAYS, take THE first DOSE 10/23/2411/23 completed Not Available Not Available Not Available methylpredn isolone 4 mg tablets in a dose pack as directed 07/12 completed Not Available Not Available Not Available albuterol sulfate HFA 90 mcg/actuati on aerosol inhaler INHALE 2 puffs EVERY 4 HOURS NEEDED active Not Available Not Available No t Available ondansetron 4 mg disintegrat ing tablet PLACE 1 TABLET UNDER THE TONGUE AND ALLOW TO DISSOLVE EVERY 8 HOURS NEEDED FOR NAUSEA AND VOMITING active Not Available Not Available No t Available fluoxetine 20 mg capsule 04/10 completed Not Available Not Available Not Available doxycycline hyclate 100 mg tablet TAKE 1 CAPSULE 2 TIMES EACH DAY FOR 7 DAYS 11/23 completed Not Available Not Available Not Available enoxaparin 60 mg/0.6 mL subcutaneou s syringe INJECT THE CONTENTS OF 1 SYRINGE UNDER THE SKIN EVERY 12 HOURS 11/23 completed Not Available Not Available Not Available buprenorphi ne 8 mg-naloxone 2 mg sublingual tablet 04/10 completed Not Available Not Available Not Available clonazepam 0.25 mg disintegrat ing tablet 04/10 completed Not Available Not Available Not Available rosuvastati n 20 mg tablet Take 1 tablet every day by oral route for 90 days. 2024 active Not Available Not Available Not Avai lable buprenorphi ne 8 mg-naloxone [address] FILMS UNDER THE TONGUE AND ALLOW TO DISSOLVE 1 TIME EACH DAY active Not Available Not Available No t Available Eliquis 5 mg tablet TAKE 1 TABLET 2 TIMES EACH DAY. active Not Available Not Available No t Available naloxone 4 mg/actuatio n nasal spray active Not Available Not Available Not Available Trelegy Ellipta 100 mcg-62.5 mcg-25 mcg powder for inhalation Inhale 1 puff every day by inhalatio n route. 2024 active Not Available Not Available Not Avai lable Vitals Date Recorded Body height Body mass index (BMI) Body weight Heart rate Oxygen saturation Systolic And Diastolic Provider Name and Address Organization Details Last Updated DateTime 5 165.1 cm 19.3 kg/m2 70257.7 1 g 112 /min 90 % 196/120 mm[Hg] [facility] 5 13:12:27 Date Recorded Body height Provider Name an d Address Organization Details Last Updated DateTime 10/26/2024 165.1 cm Layla Park [employer] 10/26/2024 13:37:30 Date Recorded Body height Body mass index (BMI) Body weight Heart rate Oxygen saturation Systolic And Diastolic Provider Name and Address Organization Details Last Updated DateTime 5 165.1 cm 16.2 kg/m2 91881.2 6 g 122 /min 94 % 140/92 mm[Hg] Layla Park [employer]. 5 08:28:29 Date Recorded Body height Body mass index (BMI) Body weight Heart rate Oxygen saturation Systolic And Diastolic Provider Name and Address Organization Details Last Updated DateTime 5 165.1 cm 16.8 kg/m2 68121.8 3 g 122 /min 93 % 235/117 mm[Hg] Layla Park [employer] 5 17:18:08 Date Recorded Body height Body mass index (BMI) Body weight Heart rate Oxygen saturation Systolic And Diastolic Provider Name and Address Organization Details Last Updated DateTime 5 165.1 cm 16.1 kg/m2 56109.4 6 g 122 /min 92 % 125/85 mm[Hg] Layla Park [employer] 5 11:12:57 Date Recorded Body height Body mass index (BMI) Body weight Heart rate Oxygen saturation Systolic And Diastolic Systolic And Diastolic Provider Name and Address Organization Details Last Updated DateTime 4 165.1 cm 19.8 kg/m2 52683.1 9 g 114 /min 94 % 171/139 mm[Hg] 150/70 mm[Hg] Layla Park [employer] 4 15:52:19 Social History Question Answer Notes LastModified by Organizat ion Details LastModified Time Tobacco Smoking Status Current Every Day Smoker [employer]. 04/10/2024 14:16:48 Do You Have An Advance [...] Information not available 04/10/2024 What Type Of Physician Locums Urgent Care Do You Use? None Information not available [...] Do You Have A Medical Power Of Street Light Repairer? No Information not available 04/10/2024 What Was The Date Of Your Most Recent Tobacco Screening? 03/19/2025 Information not available 03/19/2025 What Is Your Current Pack Years? 30ormorepacky [...] 04/10/2024 How Much Tobacco Do You Smoke? 0.5 PPD Information not available 11/23/2024 Do You Use Sunscreen Routinely? Yes Information not available 04/10/2024 Has Tobacco Cessation Counseling Been Provided? Yes Information not available 04/10/2024 On What Date Was Tobacco Cessation Counseling Provided? 03/19/2025 Information not available 03/19/2025 How Many Years Have You Smoked Tobacco? [...] not available 04/10/2024 Are you able to walk independently without assistance or assistive devices? YESWOREST Information not available 04/10/2024 Do you have difficulty doing errands alone? No Information not available 04/10/2024 Are you able to care for yourself independently? Yes Information not available 04/10/2024 What is your exercise level? [...] PF, 0.5 mL 08/19/2020 completed Not Available [facility] 10:57:24 Tdap 03/09/2021 completed Not Available [facility] 03/19/2025 10:57:24 Past Encounters Encounter ID Performer Location Encounter Start Date Encounter Closed Date Diagnosis/Indication Diagnosis SNOMED-CT Code Diagnosis ICD10 Code Diagnosis IMO Codes Diagnosis Note [id number] [place] [address] 04/10/2024 13:43:50 04/10/2024 16:36:15 Neuropathy 408165739 G62.9 Hypothyroidism 01840212 E03.9 Hyperlipidemia 90095981 E78.5 Fatigue 80852762 R53.83 Vitamin D deficiency 347 50303 E55.9 Vitamin B deficiency 479 14970 E53.9 Hyperglycemia 61747284 R 73.9 Chronic ob structive pulmonary disease 05420138 J44.9 Essential hypertension 49476159 I10 Acute exac erbation of chronic obstructive pulmonary disease 706558788 J44.1 Nicotine dependence 5629 4008 F17.200 Body mass index less than 20 151108911 Z68.1 [id number] [place] [address] 07/12/2024 12:33:51 07/12/2024 14:06:23 Screening for malignant neoplasm of colon 554648360 Z12.11 Essential hypertension 39955434 I10 Fatigue 05584238 R53.83 Vitamin D deficiency 347 27321 E55.9 Vitamin B deficiency 479 99539 E53.9 Hyperglycemia 87823031 R 73.9 Hyperlipidemia 14006567 E78.5 Neuropathy 357576856 G62 .9 Screening for malignant neoplasm of respiratory tract 198488418 Z12.2 Hyponatremia 19651852 E8 7.1 Hyperkalemia 35881067 E8 7.5 Body mass index less than 20 261082274 Z68.1 [id number] Radha Cesar [place] [address] 11/23/2024 08:00:15 11/23/2024 09:07:57 Essential hypertension 44399220 I10 Serum nazanin te below reference range 339951318 R79.89 Neuropathy 542750877 G62 .9 Hypothyroidism 56730547 E03.9 Hyperlipidemia 41497320 E78.5 Tobacco de pendence caused by cigarettes 2954925341 7280724 F17.112 3929145 Multiple n odules of lung 535200216 R91.8 701351 Venous thrombosis 807464 003 I82.890 788549 [id number] Radha Cesar [place] [address] 01/29/2025 16:46:51 01/30/2025 11:41:59 Chronic obstructive pulmonary disease 89789237 J44.9 Essential hypertension 02493716 I10 02900 Procedure declined 59289 97651 Z53.20 87946 Body mass index less than 20 353380039 Z68.1 440382 [id number] [place] [address] 03/19/2025 10:45:12 03/19/2025 12:36:51 Chronic obstructive pulmonary disease 87464579 J44.9 Essential hypertension 79303625 I10 Chronic constipation 236 667249 K59.09 Serum nazanin te below reference range 226770951 R79.89 Neuropathy 847945180 G62 .9 Hypothyroidism 53856832 E03.9 Hyperlipidemia 72342521 E78.5 Skin lesion 95230284 L98 .9 05200 Body mass index less than 20 503390123 Z68.1 953449 Health Concerns Section Related Observation LastModified by Organization Detai ls LastModified Time None Recorded Concern Status LastModified by Organization Details LastModified Time None Recorded Advance Directives Directive N: Payers Insurance Date Sequence Insurance Name Policy Number Policy Magaña Covered Member ID Magaña Member ID Guarantor Name 03/22/2025 1 [employer] - DUAL ELIGIBLE (MEDICARE REPLACEMENT/AD VANTAGE - HMO) Anisha Dawkins Marvel [id number] Anisha Marvel 03/16/2025 MED[place] MARIAN[place] Nala - [facility] [id number] Anisha Dawkins Marvel [id number] Anisha Grier 07/19/2024 1 [place]MEDICARE REPLACEMENT HMO) [id number] Anisha Dawkins Marvel [id number] Anisha Marvel 04/10/2024 1 *SELF PAY* An dari Grier 03/16/2025 2 MEDICAID-[facility] - FFS/TRADITIONA L Anisha Dawkins Marvel [id number] Anisha Grier Notes Date Note Type Note Provider [...] over but doesnt have a ride to [place]. i told her about our transportation services, [...] she has appt with lung doc in [facility] in apr. Radha Arsenio, GROUP WORK PROGRAM DIRECTOR [address] [facility], [place], [address], [employer] 04/10/2024 16:35:26 07/12/2024 text/html 69 year old female presents for chronic disease f/u. Denies acute [...] make appt with vision and transport today. Radhabright Cesar, GROUP WORK PROGRAM DIRECTOR [address] [facility], [place], [address], [employer] 07/12/2024 16:21:54 11/23/2024 text/html pt here today for medication refills. pt states that she is doing well on current medication regime and has no new complaints today. pt has a recent lung bx and was neg for cancer. doc says likely fungal. had labs drawn yesterday to confirm. recommended to have another lung bx. pt states that she has cut down on smoking from 3 ppd to 7-8 cigs per day. would like a patch. Radha Cesar, GROUP WORK PROGRAM DIRECTOR [address] [place], [address], [facility] [employer] 11/23/2024 10:07:15 01/29/2025 text/html pt here today for medication refills. pt states shes doing well on current medication regime. pt states that she was getting calls and texts stating that she needed an appt however pt already had appt in feb when she actually needs refills. so i will do the refills in feb when she needs them and schedule f/u in may because pt states that she does not want to come back in 1 month. pt states that she is feeling well but knows that her bp and HR is high and refused to let the nurse take it before i seen pt. talked with pt and she states that her bp and HR always goes up when she is at the doctor and she can feel it today. states that she can hear the pounding in her ears. pt denies any cp, soa, KEATING, dizziness, blurred vision. pt states that a few days ago she felt her heart pounding in her ears and she laid back down and it went away. states that she just seen the heart doc and she has a f/u in [address] green told her that she probably has some blockages and they are going to do an ultrasound . 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 states that she had the right one done around 4 years ago. pt still did not want her bp checked and i told her that i really needed to check it before she leaves. pt bp is very high. pt declined to go to ER and refused to have her bp taken again. pt wanted to leave and states that it will come down when she goes home. Radha Cesar APRN [address] [place], [address], [employer] 01/29/2025 17:54:03 03/19/2025 text/html pt here today for medication refills. pt states shes doing well on current medication regime. pt c/o the mole she has to the left side of her face just under her eye. states that it has been there for years and she thinks that it is getting bigger. states that she would like it removed. on exam, pt has a small, raised dark brown what appears to be a mole to left side of face just under the eye. i will refer to derm for possible removal. pt does c/o some increased soa at times and coughing up mucus. states that she missed her last pulm appt because she didnt have a ride. states that she has cut back on smoking to 1/2 PPD. states that the pulm didnt make her an appt to go see after he told her she didnt have cancer but she would like the masses removed because pt thinks that would make her breathe better. i told pt that she needs to call today and reschedule her pulm appt. so that she can discuss her plan with pulm. if she doesnt keep her f/u appt then it is hard to keep a plan. pt voiced understanding. Radha Cesar APRN [address] [place], [address], [employer] 03/19/2025 12:41:58 OBGyn Episode No OBEpisode recorded.
--- OUTSIDE RECORDS SUMMARY | 2025-04-12 20:24 | XMS_ITS | Continuity of Care Document ---
Author Organization [employer] [facility] Address [address] [place] [address] Care Team Providers Care Senior Merchandiser Name Role Phone CLARA KIRK Airline Captain MOHAN COLES Level Glass Forming Machine Operator Assessment No assessment recorded. Plan of Treatment Reminders Order Date Submit Date Provider Last Modified By Organization Details Last Modified Time Details Appointments FOLLOW UP 15 2025 01:45P Michelle Cesar APRN Not available Not available Not available Lab None recorded . Referral None recorded . Procedures None recorded . Surgeries None recorded . Imaging None recorded . Medication Orders None recorded . Patient TargetsNo targets recorded. Patient InstructionsNo instructions recorded. Reason for Referral None Reported. Problems Name Problem SNOMED Code Status Onset Date Resolution Date Notes Provider Name and Address Organization Details Recorded Time Lung mass 628080055 Active 2024 Jenn piper [employer] 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 5 11:57:34 Chronic obstructive pulmonary disease 10656043 Active 2024 Jenn piper [employer] 5 13:34:30 Hemoptysis 43711359 Active 2024 Jenn Gile[employer]. 5 11:57:58 Essential hypertension 97807496 Active 2024 Radha Cesar, ELECTRIC METER REPAIRER APPRENTICE [address] [facility], [place], [address], [employer]. 5 17:53:32 Problem Notes None recorded. Procedures Surgical History Date Name Laterality Status Provider Name and Address Organization Details Recorded Time 5 biopsy of lung completed Jennsebastien Park [employer]. 11/23/2024 11:58:53 4 Most Recent Mammogram completed Jenn [employer] 04/10/2024 14:41:12 Imaging Results None recorded. Procedure Notes None recorded. Medical Equipment None Reported. Allergies Allergen ID Allergen Name Allergen Category Reaction Reaction Severity Criticality Documentation Date Start Date Code Code System Note Provider Name and Address Organization Details Recorded Time 14011 Substance with sulfonami de structure and antibacte rial mechanism of action (substanc e) medicatio n itching rash Not available Not available Not available 04/10/2024 23502 8003 SNOMED Jenn Park [employer] [facility]. 4 14:16:46 Medications Name Sig Start Date [...] and Address Organization Details Last Updated DateTime 165.1 cm 16.8 kg/m2 81764.8 3 g 122 /min 93 % 235/117 mm[Hg] Jenn Park [employer], [employer]. 17:18:08 Social History Question Answer Notes LastModified by Organizat ion Details LastModified Time Tobacco Smoking Status Current Every Day Smoker Jenn piper [employer] 04/10/2024 14:16:48 Do You Have An [...] Information not available 04/10/2024 What Type Of Cmo & President Do You Use? None Information not available [...] Do You Have A Medical Power Of Copy Manager? No Information not available 04/10/2024 What Was [...] Immunizations Vaccine Type Date Status Note Provider Nam e and Address Organization Details Recorded Time COVID-19 vaccine, vector-nr, rS-Ad26, PF, 0.5 mL 08/19/2020 completed Not Available [facility] 10:57:24 Tdap 03/09/2021 completed Not Available [facility] 03/19/2025 10:57:24 Past Encounters Encounter ID Performer Location Encounter Start Date Encounter Closed Date Diagnosis/Indication Diagnosis SNOMED-CT Code Diagnosis ICD10 Code Diagnosis IMO Codes Diagnosis Note [id number] Radha Stone, ELECTRIC METER REPAIRER APPRENTICE [address] [address] 01/29/2025 16:46:51 01/30/2025 11:41:59 Chronic obstructive pulmonary disease 43599652 J44.9 Essential hypertension 03578158 I10 24412 Procedure declined 66494 75599 Z53.20 66985 Body mass index less than 20 302800409 Z68.1 672029 Health Concerns Section Related Observation LastModified by Organization Detai ls LastModified Time None Recorded Concern Status LastModified by Organization Details LastModified Time None Recorded Payers Encounter Date Sequence Insurance Name Policy Number Policy Magaña Covered Member ID Magaña Member ID Guarantor Name 01/29/2025 1 [employer] - DUAL ELIGIBLE (MEDICARE REPLACEMENT/ ADVANTAGE - HMO) Anisha Grier [id number] Anisha Grier 01/29/2025 2 [place] FFS/TRADITIO NAL Anisha Grier [id number] Anisha Grier Notes Date Note Type Note Provider Name and Address Organization Details Recorded Time 01/29/2025 text/html pt here today for medication refills. pt states shes doing well on current medication regime. pt states that she was getting calls and texts stating that she needed an appt however pt already had appt in feb when she actually needs refills. so i will do the refills in feb when she needs them and schedule f/u in sravan because pt states that she does not [...] she goes home. Radha Cesar APRN [address] [facility], [place], [address], [facility] [employer] 01/29/2025 17:54:03 OBGyn Episode No OBEpisode recorded.
--- OUTSIDE RECORDS SUMMARY | 2025-04-12 20:25 | XMS_ITS | Clinical Summary ---
Author Organization [facility] Address [address] [place] [address] Care Team Providers Care Supervisor Boiler Repair Name Role Phone Mode Meek MD Primary Care Provider [phone] Encounters Date Type Department Care Team Description 02/25/2025 Telephone [facility] [address] [place] [address] Eunice Abbott RN from Last 3 Months Social History Tobacco Use Types Packs/Day Years [...] Screenings 1972 CT Colonography 1999 Colonoscopy 1999 FIT 1999 FOBT 1999 Sigmoidoscopy 1999 [facility]-Breast Cancer Screening 2004 [facility]-Pneumococcal Vaccine: 50 + Years (1 of 1 - PCV) 2004 [facility]-Zoster Vaccines (1 of 2) 2004 FIT-DNA 10/19/2024 10/19/2021, 09/04/2018 [facility]-Colorectal Cancer Screening 10/19/2024 [id number] Vaccine (2 - 2024- season) 2025 08/19/2020 [facility]-Influenza Vaccine (#1) 2025 [facility]-RSV Vaccine: 60+ Years o r [...] patient's age to complete this topic Insurance MEDICARE Care Teams Supervisor Boiler Repair Relationship Specialty Start Date End Date Mode Meek MD [address] [place] [address] PCP - General 05/16/20
--- OUTSIDE RECORDS SUMMARY | 2025-04-12 20:25 | XMS_ITS | Continuity of Care Document ---
Author Organization [place] - [employer] [facility] Address [address] [place] [address] Care Team Providers Care Gauge And Weigh Machine Adjuster Name Role Phone CLARA KIRK Upper Leather Cutter MOHAN COLES Picking Tech Assessment No assessment recorded. Plan of Treatment Reminders Order Date Submit Date Provider Last Modified By Organization Details Last Modified Time Details Appointments FOLLOW UP 15 2025 01:45P Michelle Cesar APRN Not available Not available Not available Lab None recorded. Referral dermatolo gist referral 2024 025 [facility] Updated 02/01/24, [address] [facility] [address], [place], [address], 03/21/2025 14:34:36 Procedures None recorded. Surgeries None recorded. Imaging None recorded. Medication Orders Colace 100 mg capsule 2024 025 [employer], [address] [place] [address], [id number], 03/19/2025 12:29:16 rosuvasta tin 20 mg tablet 2024 025 [employer], [address] [place] [address], [id number], 03/19/2025 12:29:15 albuterol sulfate HFA 90 mcg/actua tion aerosol inhaler 2024 025 [employer], [address] [place] [address], [id number], 03/22/2025 15:44:31 folic acid 1 mg tablet 2024 025 [employer] [facility], [address] [place] [address], [id number], 03/19/2025 12:29:16 clopidogr el 75 mg tablet 2024 025 [employer] [facility], [address] [place] [address], [id number], 03/28/2025 18:03:17 losartan 50 mg tablet 2024 025 [employer] [facility], [address] [place] [address], [id number], 03/19/2025 12:34:17 metoprolo l succinate ER 25 mg tablet,ex tended release 24 hr 2024 025 [employer] [facility], [address] [place] [address], [id number], 03/28/2025 18:03:18 levothyro xine 25 mcg tablet 2024 025 [employer] [facility], [address] [place] [address], [id number], 03/19/2025 12:29:12 gabapenti n 800 mg tablet 2024 025 [employer] [facility], [address] [place] [address], [id number], 03/26/2025 05:01:38 Patient TargetsNo targets recorded. Patient InstructionsNo instructions recorded. Reason for Referral Tram Operator Referral for S kin lesion Referring Physician: Radha Cesar, Family Medicine, Encounter Date: 03/19/2025 Problems Name Problem SNOMED Code Status Onset Date Resolution Date Notes Provider Name and Address Organization Details Recorded Time Lung mass 598213783 Active 2024 Jenn piper [facility] [employer] 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 5 11:57:34 Chronic obstructive pulmonary disease 21435724 Active 2024 Jenn piper, [employer] 5 13:34:30 Hemoptysis 71717511 Active 2024 Jenn piepr, [employer] 5 11:57:58 Essential hypertension 20083360 Active 2024 Radha Cesar, SUPERVISOR [employer] [address] [place] [address], [phone], [place] [employer] 5 17:53:32 Problem Notes None recorded. Procedures Surgical History Date Name Laterality Status Provider Name and Address Organization Details Recorded Time 5 biopsy of lung completed Jenn [employer] 11/23/2024 11:58:53 4 Most Recent Mammogram completed Jenn J[employer]. 04/10/2024 14:41:12 Imaging Results None recorded. Procedure Notes None recorded. Medical Equipment None Reported. Allergies Allergen ID Allergen Name Allergen Category Reaction Reaction Severity Criticality Documentation Date Start Date Code Code System Note Provider Name and Address Organization Details Recorded Time 62431 Substance with sulfonami de structure and antibacte rial mechanism of action (substanc e) medicatio n itching rash Not available Not available Not available 04/10/2024 49425 8003 SNOMED Jenn piper, [employer] 4 14:16:46 Medications Name Sig Start Date Stop Date Status Note LastModified by Organization Details LastModified Time losartan 50 mg tablet Take 1.5 tablets every day by oral route for 90 days. 2024 active Not Available Not Available Not Avai lable alendronate 10 mg tablet 11/26 /2024 completed Not Available Not Available Not Available [...] Updated DateTime 5 165.1 cm 16.1 kg/m2 58221.4 6 g 122 /min 92 % 125/85 mm[Hg] Jenn Park [employer] 11:12:57 Social History Question Answer Notes LastModified by Organizat ion Details LastModified Time Tobacco Smoking Status Current Every Day Smoker Jenn piper [employer] 04/10/2024 14:16:48 Do You Have An [...] Information not available 04/10/2024 What Type Of Radar Tester Do You Use? None Information not available [...] Do You Have A Medical Power Of Operations Vice President? No Information not available 04/10/2024 What Was [...] PF, 0.5 mL 08/19/2020 completed Not Available [facility] 10:57:24 Tdap 03/09/2021 completed Not Available [facility] 03/19/2025 10:57:24 Past Encounters Encounter ID Performer Location Encounter Start Date Encounter Closed Date Diagnosis/Indication Diagnosis SNOMED-CT Code Diagnosis ICD10 Code Diagnosis IMO Codes Diagnosis Note [id number] [facility]hab[facility] Cesar[address] [address] 03/19/2025 10:45:12 03/19/2025 12:36:51 Chronic obstructive pulmonary disease 43851986 J44.9 Essential hypertension 55078947 I10 Chronic constipation 236 196167 K59.09 Serum nazanin te below reference range 122793176 R79.89 Neuropathy 929078308 G62 .9 Hypothyroidism 83145731 E03.9 Hyperlipidemia 79438759 E78.5 Skin lesion 98910562 L98 .9 00983 Body mass index less than 20 940292714 Z68.1 062303 Health Concerns Section Related Observation LastModified by Organization Detai ls LastModified Time None Recorded Concern Status LastModified by Organization Details LastModified Time None Recorded Payers Encounter Date Sequence Insurance Name Policy Number Policy Magaña Covered Member ID Magaña Member ID Guarantor Name 03/19/2025 1 [employer] - DUAL ELIGIBLE (MEDICARE REPLACEMENT/ ADVANTAGE - HMO) Anisha Grier [id number] Anisha Grier 03/19/2025 2 [place] - FFS/TRADITIO NAL Anisha Grier [id number] Anisha Grier Notes Date Note Type Note Provider Name and Address Organization Details Recorded Time 03/19/2025 text/html pt here today for medication [...] pt voiced understanding. Radha Cesar APRN [address] [facility], [place], [address], [facility] [employer] 03/19/2025 12:41:58 OBGyn Episode No OBEpisode recorded.
--- OUTSIDE RECORDS SUMMARY | 2025-04-12 20:25 | XMS_ITS | Encounter Summary ---
Author Organization Healthcare Address [address] [place] [address] Care Team Providers Care Waste Collection Driver Name Role Phone Mode Meek MD Primary Care Provider [phone] Encounter Details Date Type Department Care Team ([facility] st Contact Info) Description 10/20/2024 Orders Only External Location [address] [place] [address] Provider, External Social History Tobacco Use Types [...] Associated Diagnosis Comments CT OUTSIDE IMAGES 10/20/2024 1:14 AM EDT documented in this encounter Results * CT OUTSIDE IMAGES (10/20/2024 1:14 AM EDT) Anatomical Region Laterality Modality Computed Tomogra phy 10/20/2024 1:14 AM EDT us External Provider IMG CT PROCEDURES Final Result documented in this encounter Visit Diagnoses Not on filedocumented in this encounter Care Teams Waste Collection Driver Relationship Specialty Start Date End Date Mode Meek MD [address] [place] [address] PCP - General 05/16/20 documented as of this encounter
--- OUTSIDE RECORDS SUMMARY | 2025-04-12 20:25 | XMS_ITS | Encounter Summary ---
Author Organization [facility] Address [address] [place] [address] Care Team Providers Care Public Health Service Officer Name Role Phone Mode Meek MD Primary Care Provider [phone] Encounter Details Date Type Department Care Team ([facility] st Contact Info) Description 02/25/2025 Telephone [facility] [address] [place] [address] Eunice Abbott, RN [facility] None Social History Tobacco Use Types Packs/Day Years Used Date Smoking Tobacco: Never Assessed Comments Unknown Sex and Gender Information Value Date Recorded Sex Assigned at Not on file Legal Sex Female 12:09 PM EST Gender Identity Not on file Sexual Orientation Not on file documented as of this encounter Miscellaneous Notes * Telephone Encounter - Eunice Abbott RN - 02/25/2025 1:31 PM EDT Patient Name: Anisha Grier :1955 Date:02/25/2025 Affiliate site: [facility] Referring Physician: Josafat De La Vega Education/ Information provided: This Nurse Liaison spoke with Anisha Grier prior to an appointment on 03/04/2025. Explained nurse liaison services offered through [facility]. Discussed appointment necessity, and that she would be seeing Dr. Perea in the [facility].. Patient verbalizes understanding. Patient denied any barriers to arriving to clinic visit and will be accompanied by her daughter. Providedpatient with liaison contact information and encouraged patient to call with any questions, concerns or assistance needs. Will follow up with patient after appointment. Eunice Abbott, RN [facility] Nurse Liaison [phone] documented in this encounter Plan of Treatment Not on file documented as of this encounter Visit Diagnoses Not on filedocumented in this encounter Care Teams Public Health Service Officer Relationship Specialty Start Date End Date Mdoe Meek MD [address] [place] [address] PCP - General 05/16/20 documented as of this encounter
--- NOTE | 2025-04-12 20:38 | ECG_ITS ---
APPROVED REPORT Exam: Resting ECG HR:100 bpm ECG Measurements Heart Rate 100 AXES OH 127 P 72 QRSd 121 QRS 76 QT 358 T -25 QTc 415 Conclusion SINUS TACHYCARDIA INDETERMINATE AXIS RIGHT BUNDLE BRANCH BLOCK [120+ ms QRS DURATION, UPRIGHT V1, 40+ ms S IN I/aVL/V4/V5/V6] ST DEPRESSION, CONSIDER SUBENDOCARDIAL INJURY [0.1+ mV ST DEPRESSION] ABNORMAL ECG UNCONFIRMED REPORT Electronically signed by : TERRIE CRUZ, 04/13/2025 01:08:59
--- NOTE | 2025-04-12 20:47 | HMH.EDGENADL ---
Discharge Plan Disposition Patient Disposition: Home, Self-Care Condition: Good Clinical Impressions Clinical Impression: Encephalopathy Discharge ED Provider: Ashley Gonzalez General Adult HPI General Chief complaint: Fall Stated complaint: AMS not eating or drinking Time Seen by Provider: 04/12/25 19:43 Mode of Arrival: Wheelchair Source of Information: Patient and Relative Description of Symptoms (Recalled from ER Triage Doc. by RN): Daughter presents with pt with concerns for incresed weakness, decreased appetite and intermittent confussion. Pt lives at home with daughter, daughter states she refuses to go to the dr and does not want to be here. Pt is alert and oriented to self, time and place at this time but having some confussion with conversation. Pt denies any pain at this time. Daughter states she has chronic cough and was coughing up blood a few days ago. Pt was dx with spots on her lungs but refuses to follow up. History of Present Illness HPI narrative: Patient is a 70-year-old female who presented to the urgency department with her daughter for confusion, weakness decreased appetite for the last couple days. Patient states that she lives with her daughter at home. She reports that she is having some shortness of breath. And has had some mild hemoptysis over the last couple days. Patient denies any chest pain. Patient denies any upper respiratory symptoms. Patient denies any abdominal pain nausea vomiting or diarrhea. Patient denies any urinary symptoms. Daughter at bedside states that the patient is more confused than usual. Patient has not had any falls. Related Data Home Medications ?Medication ?Instructions ?Recorded ?Confirmed albuterol sulfate 2.5 mg/3 mL 2.5 mg inhalation Q6HP PRN 12/29/18 04/13/25 (0.083 %) solution for nebulization Shortness Of Breath buprenorphine 8 mg-naloxone 2 mg 2 film sublingual DAILY 10/20/24 04/13/25 sublingual film clopidogrel 75 mg tablet 75 mg PO DAILY 10/20/24 04/13/25 gabapentin 800 mg tablet 800 mg PO TID 10/20/24 04/13/25 levothyroxine 25 mcg tablet 25 mcg PO DAILYDM 10/20/24 04/13/25 losartan 50 mg tablet 75 mg PO DAILY 10/20/24 04/13/25 rosuvastatin 20 mg tablet 20 mg PO DAILY 06/07/25 11/29/25 albuterol sulfate 90 mcg/actuation 2 puff inhalation Q4H 11/12/24 04/13/25 aerosol inhaler Previous Rx's ?Medication ?Instructions ?Recorded fluticasone fur. 100 mcg-umeclid 1 inh inhalation DAILY #60 ea 10/22/24 62.5 mcg-vilant 25 mcg inhalat.powder (Trelegy Ellipta) metoprolol succinate 25 mg 25 mg PO DAILY #0 tabs 10/22/24 tablet,extended release 24 hr ondansetron 4 mg disintegrating 4 mg PO Q8H PRN nausea and 11/05/24 tablet vomiting #20 tabs apixaban 5 mg tablet (Eliquis) See Rx Instructions .Route 02/25/25 .COMPLEX #60 tabs Allergies Allergy/AdvReac Type Severity Reaction Status Date / Time Sulfa (Sulfonamide Allergy Mild Anaphylaxis Verified 12/05/24 10:01 Antibiotics) [facility] Disclaimer: The information contained in this section may have been updated after the patient was seen, as this information can be updated by other users. Medical History Mediastinal lymphadenopathy Hilar lymphadenopathy Restless sleeper Snoring Smoker Palpitations Tachycardia HTN (hypertension), benign HLD (hyperlipidemia) Carotid stenosis Ligamentum flavum hypertrophy Bulging of lumbar intervertebral disc Facet hypertrophy of lumbar region Anxiety Surgical History History of carotid endarterectomy History of abdominal aortic aneurysm repair H/O breast biopsy Hx of tonsillectomy Family History Other Anxiety Family history of CVA Family history of brain aneurysm Social History (Updated 04/13/25 @ 00:24 by Mary Aparicio RN) Smoking Status: Current every day smoker tobacco type: cigarettes packs per day: 1 second hand exposure: Yes alcohol intake: never substance use type: denies use current occupational status: retired Travel in the last 8 weeks?: None household members: none housing: apartment number of children: 4 caffeine: No Have you lived/traveled outside [place] in past 30 days?: No Contact w/someone who lives/traveled outside [place] past 30 days?: No Exposure to someone with infectious disease in past 14 days?: No Do you have a fever (greater than 100.4 F or 38 C)?: No Have you tested positive for COVID-19?: No Exposed to someone with COVID-19 in past 14 days?: No Do you have a sore throat?: No Do you have a cough?: No Do you have any weakness?: No Do you have any diarrhea?: No Are you experiencing any unusual bleeding?: No Do you have any muscle aches/pain?: No Do you have any abdominal pain?: No Are you experiencing loss of taste or smell?: No Other Medical History Have you received the Flu Vaccine for this season: No Have you received the Pneumonia Vaccine: No ROS Obtained: Yes All systems reviewed & no additional complaints except as documented and Yes Systems reviewed as appropriate & no additional complaints except as documented Physical Exam General General appearance: alert and in no apparent distress Head Head exam: atraumatic, normocephalic and normal inspection Eye Eye exam: Present normal appearance, PERRL and EOMI; Absent scleral icterus ENT ENT exam: Present normal exam and normal external ear exam Neck Neck exam: Present normal inspection and full ROM Chest Chest inspection: Present normal inspection and symmetric chest wall rise Respiratory Respiratory exam: Present normal lung sounds bilaterally; Absent respiratory distress or wheezes Cardiovascular Cardiovascular exam: Present regular rate, normal rhythm and normal heart sounds Abdominal Exam Abdominal exam: Present soft and distention; Absent tenderness, guarding or rebound Extremities Exam Extremities exam: Present normal inspection and full ROM Back Exam Back exam: Present normal inspection and full ROM Neurological Exam Neurological exam: Present alert, CN II-XII intact and other (AxOx2, slow to answer but non-focal exam); Absent motor sensory deficit Psychiatric Psychiatric exam: Present normal affect and normal mood Skin Skin exam: Present warm and dry Medical Decision Making Medical Records Medical records reviewed: Yes I reviewed the patient's medical records. Screening: Per USPSTF and CDC recommendations, given the prevalence of disease in our region, it is our hospital?s policy to screen for HIV and viral Hepatitis for all patients aged 18 and over and those with ongoing risk factors. [place] Inquiry Pt receiving controlled substance: No Vital Signs: 04/12/25 20:26 04/12/25 20:30 04/12/25 21:00 Temperature 98.8 F Temperature Source Oral Pulse Rate 97 H 99 H Pulse Rate [Left] 94 H Respiratory Rate 16 Blood Pressure 176/75 H 187/82 H Blood Pressure [Right Arm] 169/86 H Blood Pressure Mean 108 101 Blood Pressure Mean [Right Arm] 113 Blood Pressure Source Blood Pressure Source [Right Arm] Automatic Cuff Blood Pressure Position Blood Pressure Position [Right Arm] Sitting 02 Sat by Pulse Oximetry 97 96 96 Oxygen Delivery Method Room Air 04/12/25 21:28 04/12/25 21:30 04/12/25 22:00 Temperature Temperature Source Pulse Rate 97 H 90 99 H Pulse Rate [Left] Respiratory Rate Blood Pressure 175/88 H 178/70 H 179/83 H Blood Pressure [Right Arm] Blood Pressure Mean 112 111 109 Blood Pressure Mean [Right Arm] Blood Pressure Source Blood Pressure Source [Right Arm] Blood Pressure Position Blood Pressure Position [Right Arm] 02 Sat by Pulse Oximetry 97 97 98 Oxygen Delivery Method 04/12/25 22:31 04/12/25 23:01 04/12/25 23:30 Temperature Temperature Source Pulse Rate 114 H 114 H Pulse Rate [Left] Respiratory Rate Blood Pressure 163/95 H 178/75 H Blood Pressure [Right Arm] Blood Pressure Mean 117 109 Blood Pressure Mean [Right Arm] Blood Pressure Source Blood Pressure Source [Right Arm] Blood Pressure Position Blood Pressure Position [Right Arm] 02 Sat by Pulse Oximetry 93 L 96 Oxygen Delivery Method Room Air 04/12/25 23:57 Temperature 98.2 F Temperature Source Oral Pulse Rate 88 Pulse Rate [Left] Respiratory Rate 17 Blood Pressure 158/97 H Blood Pressure [Right Arm] Blood Pressure Mean Blood Pressure Mean [Right Arm] Blood Pressure Source Automatic Cuff Blood Pressure Source [Right Arm] Blood Pressure Position Sitting Blood Pressure Position [Right Arm] 02 Sat by Pulse Oximetry Oxygen Delivery Method Room Air Lab Data Lab results reviewed: Yes I reviewed the patient's lab results. Lab Results 04/12/25 20:25: WBC 4.4 L, RBC 3.53 L, Hgb 7.1 L, Hct 24.8 L, MCV 70.3 L, MCH 20.1 L, MCHC 28.6 L, RDW 17.9 H, Plt Count 225, MPV 9.8, Neut % (Auto) 68.1, Lymph % (Auto) 18.5, Kimball % (Auto) 10.6 H, Eos % (Auto) 1.4, Baso % (Auto) 0.9, Neut # (Auto) 3.0, Lymph # (Auto) 0.8, Kimball # (Auto) 0.5, Eos # (Auto) 0.1, Baso # (Auto) 0.0, Sodium 136, Potassium 3.8, Chloride 101, Carbon Dioxide 24, Anion Gap 14.8, BUN 7, Creatinine 0.60, Estimated Creat Clear 35, Estimated GFR 99, Est GFR ( Amer) 119, Glucose 108 H, Calcium 8.5, Magnesium 2.0, Total Bilirubin 0.6, AST 27, ALT 11 L, Alkaline Phosphatase 89, Troponin I 0.05 H, Total Protein 7.7, Albumin 3.8, Globulin 3.9 H, Albumin/Globulin Ratio 1.0 L, Lipase 168 04/12/25 21:38: Urine Color Yellow, Urine Appearance Clear, Urine pH 6.0, Ur Specific Gilbert 1.015, Urine Protein Trace, Urine Glucose (UA) Negative, Urine Ketones Trace, Urine Blood Trace-i, Urine Nitrate Negative, Urine Bilirubin Negative, Urine Urobilinogen 0.2, Ur Leukocyte Esterase Negative, Urine RBC None, Urine WBC 5-10, Ur Squamous Epith Cells Occasional, Urine Bacteria Trace, Urine Opiates Screen Negative, Urine Methadone Screen Negative, Ur Barbituates Screen Negative, Ur Phencyclidine Scrn Negative, Ur Amphetamines Screen Negative, U Benzodiazepines Scrn Negative, Urine Cocaine Screen Negative, U Marijuana (THC) Screen Negative 04/12/25 22:56: VBG pH 7.38, VBG pCO2 37.8, VBG pO2 46.2 H, VBG HCO3 21.9 L, VBG Total CO2 23.0, VBG O2 Saturation 78.7 H, VBG Base Excess -3.3 L, VBG Lactic Acid 2.2 H, Troponin I 0.06 H 04/12/25 20:25 04/12/25 20:25 Orders (Tests/Meds): ED MEDICATIONS Generic Name Dose Route Start Last Admin Trade Name Freq PRN Reason Stop Dose Admin Acetaminophen 650 mg 04/12/25 23:27 Acetaminophen 325mg Tab PO 05/12/25 23:26 Q4HP PRN Fever or Mild Pain (1-3) Sodium Chloride 10 ml 04/12/25 22:36 04/12/25 22:37 Sodium Chloride 0.9% 10ml Syr (Rad Only) IV 05/12/25 22:35 10 ml NEEDED PRN Administration Maintain IV Site Discontinued Medications Generic Name Dose Route Start Last Admin Trade Name Yola PRN Reason Stop Dose Admin Sodium Chloride 1,000 mls @ 999 mls/hr 04/12/25 20:59 04/13/25 00:53 Sod Chlor 0.9% 1000ml Bag IV 04/12/25 21:59 Infused .Q1H1M ONE Infusion Iopamidol 70 ml 04/12/25 22:36 04/12/25 22:37 Iopamidol-370 (76%);100ml Bottle IV 04/12/25 22:37 70 ml ONCE ONE Administration Sodium Chloride 40 ml 04/12/25 22:36 04/12/25 22:37 0.9 % Sodium Chloride 50 Ml Vial IV 04/12/25 22:37 40 ml ONCE ONE Administration ORDERS Category Date Time Status CT angio chest PE protocol Stat Cat Scan 04/12/25 20:[address] head/brain wo con Stat Cat Scan 04/12/25 20:57 Completed CXR --portable [XR chest portable] Stat Exams 04/12/25 20:57 Completed CBC w/Auto Diff [Complete Blood Count Auto Diff] Stat Lab 04/12/25 20:25 Completed CMP [Comprehensive Metabolic Panel] Stat Lab 04/12/25 20:25 Completed Lipase Stat Lab 04/12/25 20:25 Completed MAG [Magnesium] Stat Lab 04/12/25 20:25 Completed Trop I [Troponin I] Stat Lab 04/12/25 20:25 Completed Troponin I Q3H Lab 04/12/25 22:56 Completed Troponin I Q3H Lab 04/13/25 02:57 Ordered UA [Urinalysis and Microscopic] Stat Lab 04/12/25 21:38 Completed UDS [Drug Screen,Urine] Stat Lab 04/12/25 21:38 Completed Urine Culture Stat Micro 04/12/25 21:38 Received VBG [Venous Blood Gas] Stat RT 04/12/25 22:56 Completed Medical Decision Narrative: Patient is a 70-year-old female who presented to the emergency department with shortness of breath for the last couple days. On arrival, patient was hemodynamically stable with unremarkable vital signs. Differential includes but not limited to: ACS/SD, pneumothorax, pleural effusion, intracranial pathology, pulmonary embolism, electrolyte abnormalities, urinary tract infection, amongst others. Patient's labs were reviewed and interpreted by myself: CBC showed no leukocytosis, patient did have anemia with a hemoglobin of 7.1. CMP was unremarkable. Initial troponin was 0.05, second troponin was 0.06. Lipase was normal at 168. Chest x-ray was obtained which showed no acute for consolidation, pneumothorax, pleural effusion or other acute cardiopulmonary process. Dehydrates reviewed and interpreted by myself and showed no acute intracranial pathology. CT PE was obtained which showed a right upper lung nodule and mass which family was already aware of and patient has not been seen for. Patient's UA showed no evidence of infection. Urine drug screen was negative. EKG was reviewed and interpreted by myself and showed no acute focal consolidation, pneumothorax, pleural effusion or other acute cardiopulmonary process At this time, patient continued to be abnormal from her baseline however no acute reason or findings at this time. Given acute encephalopathy, patient was ultimately admitted to hospital medicine for further workup and evaluation. Critical Care Critical Care Time Critical Care Time: No
--- NOTE | 2025-04-12 20:57 | XR_ITS ---
PROCEDURE INFORMATION: Exam: XR Chest Exam date and time: 04/12/2025 10:26 PM Age: 70 years old Clinical indication: Shortness of breath TECHNIQUE: Imaging protocol: Radiologic exam of the chest. Views: 1 view. COMPARISON: CT ANGIO CHEST PE PROTOCOL 04/12/2025 10:17 PM FINDINGS: Lungs: Spiculated right upper lobe mass similar to chest CT 04/12/2025 measuring 3.8 cm. No focal infiltrates. Pleural spaces: Unremarkable. No pleural effusion. No pneumothorax. Heart/Mediastinum: Mild cardiomegaly. Bones/joints: Unremarkable. IMPRESSION: 1. Spiculated right upper lobe mass similar to chest CT 04/12/2025 measuring 3.8 cm. 2. Mild cardiomegaly. 3. No focal infiltrates.
--- NOTE | 2025-04-12 20:57 | CT_ITS ---
PROCEDURE INFORMATION: Exam: CTA Chest With Contrast Exam date and time: 04/12/2025 10:22 PM Age: 70 years old Clinical indication: Shortness of breath and other: AMS; Additional info: AMS, shortness of breath TECHNIQUE: Imaging protocol: Computed tomographic angiography of the chest with contrast. Exam focused on the arteries. 3D rendering (Not supervised by radiologist): MIP and/or 3D reconstructed images were created by the technologist. Radiation optimization: All CT scans at this facility use at least one of these dose optimization techniques: automated exposure control; mA and/or kV adjustment per patient size (includes targeted exams where dose is matched to clinical indication); or iterative reconstruction. Contrast material: ISOUVE 370; Contrast volume: 70 ml; Contrast route: INTRAVENOUS (IV); COMPARISON: CT ANGIO CHEST 10/27/2024 2:40 PM FINDINGS: Pulmonary arteries: Prominent proximal pulmonary artery measuring 4.5 cm; possible pulmonary artery hypertension. No central or large peripheral pulmonary emboli. Aorta: Extensive calcific atherosclerosis of the aorta. Calcific atherosclerosis of the ascending aorta, aortic arch, descending thoracic aorta and partially visualized abdominal aorta. Lungs: There is a spiculated mass right upper lobe 2.9 x 2.9 x 3.4 cm image 8/40 and image 1002/48. Findings similar to 10/27/2024. Left lower lobe nodule measuring 11 mm image 8/84 and a smaller left lower lobe nodule measuring 4.6 mm image 8/84. Mild centrilobular emphysema. Calcified granulomas left lower lobe. Pleural spaces: Unremarkable. No pneumothorax. No pleural effusion. Heart: Mild cardiomegaly. Coronary arteries: Coronary artery calcifications. Lymph nodes: Unremarkable. No enlarged lymph nodes. Bones/joints: Stable compression fracture at L1. Soft tissues: Unremarkable. IMPRESSION: 1. There is a spiculated mass right upper lobe 2.9 x 2.9 x 3.4 cm image 8/40 and image 1002/48. Findings similar to 10/27/2024. Findings again most consistent with a lung cancer. Biopsy recommended. 2. Left lower lobe nodule measuring 11 mm image 8/84 and a smaller left lower lobe nodule measuring 4.6 mm image 8/84. 3. Mild centrilobular emphysema. 4. Extensive calcific atherosclerosis of the aorta. 5. Prominent proximal pulmonary artery measuring 4.5 cm; possible pulmonary artery hypertension. 6. No central or large peripheral pulmonary emboli. 7. Calcific atherosclerosis of the ascending aorta, aortic arch, descending thoracic aorta and partially visualized abdominal aorta. 8. . 9. Stable compression fracture at L1. COMMENTS: The presence of pulmonary emphysema on CT is an independent risk factor for lung cancer. In the absence of a history or active diagnosis of lung cancer, it is recommended that this patient with emphysema be evaluated for enrollment in a low dose CT lung cancer screening program.
--- NOTE | 2025-04-12 20:57 | CT_ITS ---
PROCEDURE INFORMATION: Exam: CT Head Without Contrast Exam date and time: 04/12/2025 10:15 PM Age: 70 years old Clinical indication: Altered mental status/memory loss; Additional info: AMS TECHNIQUE: Imaging protocol: Computed tomography of the head without contrast. Radiation optimization: All CT scans at this facility use at least one of these dose optimization techniques: automated exposure control; mA and/or kV adjustment per patient size (includes targeted exams where dose is matched to clinical indication); or iterative reconstruction. COMPARISON: CT ANGIO HEAD 10/20/2024 1:24 AM FINDINGS: Brain: No evidence for intracranial hemorrhage, mass lesions or acute stroke. Intracranial vascular calcifications. Mild small vessel ischemic change in the periventricular white matter. Cerebral ventricles: No ventriculomegaly. Pituitary gland and sella: Negative Paranasal sinuses: Visualized sinuses are unremarkable. No fluid levels. Mastoid air cells: Visualized mastoid air cells are well aerated. Orbital cavities: Negative. Bones: Unremarkable. No acute fracture. Soft tissues: Unremarkable. Vasculature: Negative. Other findings: Motion artifact degrades the images. Mild generalized atrophy. IMPRESSION: 1. No evidence for intracranial hemorrhage, mass lesions or acute stroke within the limitations of a motion degraded study.. 2. Intracranial vascular calcifications. 3. Mild generalized atrophy. 4. Mild small vessel ischemic change in the periventricular white matter.
[2025-04-12 21:16] LABS: Albumin Level 3.8 g/dl (3.5-5.0); Chloride 101 mmol/L (98-107); Potassium 3.8 mmoL/L (3.5-5.1); Sodium 136 mmol/L (136-145)
[2025-04-12] MEDS: 0.9 % SODIUM CHLORIDE 1000ML 1,000 ML 999 ML IV (21:16)
--- NOTE | 2025-04-12 21:18 | PC.NURSE ---
Pt up to [facility] for UA sample
[2025-04-12 21:19] LABS: Alanine Aminotransferase 11 U/L (12-78); Albumin/Globulin Ratio 1.0 (1.1-1.8); Alkaline Phosphatase 89 U/L (38-126); Anion Gap 14.8 mEq/L (5-15); Aspartate Amino Transferase 27 U/L (14-36); Bilirubin,Total 0.6 mg/dl (0.2-1.3); Blood Urea Nitrogen 7 mg/dl (7-17); Calcium 8.5 mg/dl (8.4-10.2); Carbon Dioxide 24 mmol/L (22.0-30.0); Creatinine Clearance Estimated 35 mL/min (50-200); Creatinine,Serum 0.60 mg/dl (0.52-1.04); Estimated Glomerular Filt Rate 99 ml/min (>60); GFR (African American) 119 ML/MIN (>60); Globulin 3.9 g/dL (1.3-3.2); Glucose 108 mg/dl (74-100); Hematocrit 24.8 % (37.0-47.0); Hemoglobin 7.1 g/dL (12.2-16.2); Immature Granulocytes % 0.5 %; Lipase 168 U/L (23-300); Magnesium 2.0 mg/dl (1.6-2.3); Mean Corpuscular HGB Conc 28.6 g/dL (31.8-35.4); Mean Corpuscular Hemoglobin 20.1 pg (27.0-31.2); Mean Corpuscular Volume 70.3 fl (81-99); Nucleated Red Blood Cells % 0.5 %; Platelet Count 225 K/mm3 (142-424); Red Blood Count 3.53 M/mm3 (4.20-5.40); Red Cell Distribution Width-SD 44.9 fL; Total Protein,Serum 7.7 g/dl (6.3-8.2); White Blood Count 4.4 K/mm3 (4.8-10.8)
[2025-04-12 21:31] LABS: Troponin I 0.05 ng/ml (0.00-0.034)
[2025-04-12 21:43] LABS: Microscopic, Urine URINE MICROSCOPIC (MICROSCOPIC)
--- NOTE | 2025-04-12 21:43 | PC.NURSE ---
pt in/out cath for UARudy at bedside to assist
[2025-04-12 22:05] LABS: Bilirubin,Urine Negative (Negative); Color,Urine YELLOW (Yellow); Glucose,Urine (UA) Negative (Negative); Ketones,Urine TRACE (Negative); Leukocyte Esterase,Urine Negative (Negative); PH,Urine 6.0 (5.0-8.5); Protein,Urine TRACE (Negative); Specific Gravity, Urine 1.015 (1.005-1.030); Urobilinogen,Urine 0.2 EU/dl (0.2)
[2025-04-12 22:16] LABS: Bacteria,Urine Trace /lpf; Squamous Epithelial Cell,Urine Occasional #/hpf (0-5)
[2025-04-12 22:18] LABS: Benzodiazepines Screen,Urine Negative ng/ml (<200)
[2025-04-12 22:19] LABS: Amphetamine/Metha Screen,Urine Negative ng/ml (<1000)
[2025-04-12 22:20] LABS: Barbiturates Screen,Urine Negative ng/ml (<200)
[2025-04-12 22:22] LABS: Methadone Screen,Urine Negative ng/ml (<300); Opiate Screen,Urine Negative ng/ml (<300)
[2025-04-12 22:23] LABS: Phencyclidine Screen,Urine Negative ng/ml (<25)
[2025-04-12] MEDS: 0.9 % SODIUM CHLORIDE 50 ML VIAL 40 ML IV (22:37)
[2025-04-12] MEDS: SODIUM CHLORIDE 0.9% 10ML SYR (RAD ONLY) 10 ML IV (22:37)
[2025-04-12] MEDS: IOPAMIDOL-370 (76%);100ML BOTTLE 70 ML IV (22:37)
[2025-04-12 23:01] LABS: Lactate Venous 2.2 mmol/L (0.4-2.0); VBG HCO3 21.9 mmol/L (23-30); VBG PCO2 37.8 mmol/L (35-51); VBG PH 7.38 mmol/L (7.31-7.41); VBG PO2 46.2 mmol/L (28-40)
--- NOTE | 2025-04-12 23:02 | PC.NURSE ---
Helped patient to the [facility] x1 assist. Patient able to urinate approx 200ml. Patient placed back in bed and repositioned to comfort. Denies further needs at this time.
[2025-04-12 23:30] LABS: Troponin I 0.06 ng/ml (0.00-0.034)
[2025-04-12 23:46] LABS: Adenovirus,PCR Not Detected (NotDetected); Chlamydophila Pneumoniae, PCR Not Detected (NotDetected); Coronavirus 19, PCR Not Detected (NotDetected); Coronovirus HKU1,PCR Not Detected (NotDetected); Influenza A, PCR Not Detected (NotDetected); Influenza AH1, 2009 Not Detected (NotDetected); Influenza AH1, PCR Not Detected (NotDetected); Influenza AH3,PCR Not Detected (NotDetected); Influenza B, PCR Not Detected (NotDetected); Mycoplasma Pneumoniae, PCR Not Detected (NotDetected); Parainfluenza 1, PCR Not Detected (NotDetected); Parainfluenza 2, PCR Not Detected (NotDetected); Parainfluenza 3, PCR Not Detected (NotDetected); Parainfluenza 4, PCR Not Detected (NotDetected)
[2025-04-13] VITALS (25 sets, daily range): BP systolic 131–181; BP diastolic 51–99; PULSE 78–105; RESP 16–18; TEMP 36.4–37.1; O2SAT 91–100; BMI 15.5
[2025-04-13 03:02] LABS: Reflex Lactic Add Lactic Reflex
[2025-04-13 04:45] LABS: Troponin I 0.09 ng/ml (0.00-0.034)
--- NOTE | 2025-04-13 05:34 | P.HP_ITS ---
<Statement entered by Garry Ribeiro MD - 04/13/25 13:42> Rounded on patient after nurse practitioner. Personally examined and interviewed patient. Agree with exam findings and care plan as documented. History of Present Illness *Admission Date: 04/12/25 *Reason for visit:: AMS *History of present illness: Patient is a 70-year-old female past medical history significant for depression, anxiety, hypertension, hypothyroidism, COPD, tobacco abuse, CAD, prediabetes, right sided lung mass. Patient presents to [facility] ED due to increased confusion. Daughter accompanies patient at bedside. History provided per daughter as patient is a poor historian due to confusion. Reports her mother lives with her and noticed increased confusion over the last day. At baseline patient is A and O x 3. States yesterday she complained of stomach discomfort. Noted she has had very little to eat and drink over the last few days. There is also note of hemoptysis that has been intermittent in nature. There is a known right sided lung mass that has been evaluated per pulmonology. Bronchoscopy performed on 11/05/24 without evidence of malignancy. It was recommended that she followed up with navigational bronchoscopy in [place]. Daughter states that she did not want to follow-up for any further treatment. 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 There was concern at that time as well with her hemoptysis and recommended follow-up with hematology. Daughter also noted that she did not want to follow-up with this as well. ED workup revealed decreased hemoglobin of 7.1, prior hemoglobin October 2024 13.6. Other than hemoptysis daughter denies any other active bleeding. Patient is on anticoagulation with Eliquis. Denies any recent injury trauma. Denies nausea, vomiting, shortness of breath. Initial ED workup included laboratory studies and imaging study. WBC 4.4, RBC 3.53, hemoglobin 7.1, hematocrit 24.8, ALT 11, full respiratory panel obtained unremarkable, UA negative, urine drug screen negative. Imaging study included chest CTA, personally reviewed showing right upper lobe mass, left lower lobe nodule. Chest x-ray I personally reviewed along with head CT, without acute finding. Hypertensive in the emergency department blood pressure 170s over 70 range. Assessment of patient at bedside she is confused, mildly agitated, afebrile, on room air with adequate saturations. Daughter at bedside. [facility] Disclaimer: The information contained in this section may have been updated after the patient was seen, as this information can be updated by other users. Medical History Mediastinal lymphadenopathy Hilar lymphadenopathy Restless sleeper Snoring Smoker Palpitations Tachycardia HTN (hypertension), benign HLD (hyperlipidemia) Carotid stenosis Ligamentum flavum hypertrophy Bulging of lumbar intervertebral disc Facet hypertrophy of lumbar region Anxiety Surgical History History of carotid endarterectomy History of abdominal aortic aneurysm repair H/O breast biopsy Hx of tonsillectomy Family History Other Anxiety Family history of CVA Family history of brain aneurysm Social History Smoking Status: Current every day smoker tobacco type: cigarettes packs per day: 1 second hand exposure: Yes alcohol intake: never substance use type: denies use current occupational status: retired Travel in the last 8 weeks?: None household members: none housing: apartment number of children: 4 caffeine: No Have you lived/traveled outside [place] in past 30 days?: No Contact w/someone who lives/traveled outside US past 30 days?: No Exposure to someone with infectious disease in past 14 days?: No Do you have a fever (greater than 100.4 F or 38 C)?: No Have you tested positive for COVID-19?: No Exposed to someone with COVID-19 in past 14 days?: No Do you have a sore throat?: No Do you have a cough?: No Do you have any weakness?: No Do you have any diarrhea?: No Are you experiencing any unusual bleeding?: No Do you have any muscle aches/pain?: No Do you have any abdominal pain?: No Are you experiencing loss of taste or smell?: No Other Medical History Have you received the Flu Vaccine for this season: No Have you received the Pneumonia Vaccine: No Review of Systems Review of Systems Review of systems:: unable to obtain Constitutional Constitutional: Reports system reviewed and no additional complaints, except as documented and Reports as per HPI Eyes Eyes: Reports as per HPI ENT Ears, Nose, Mouth, and Throat: Reports system reviewed and no additional complaints, except as documented and Reports as per HPI *Cardiovascular Cardiovascular: Reports system reviewed and no additional complaints, except as documented and Reports as per HPI *Respiratory Respiratory: Reports system reviewed and no additional complaints, except as documented and Reports as per HPI *Gastrointestinal Gastrointestinal: Reports system reviewed and no additional complaints, except as documented and Reports as per HPI *Genitourinary Genitourinary: Reports system reviewed and no additional complaints, except as documented and Reports as per HPI *Musculoskeletal Musculoskeletal: Reports system reviewed and no additional complaints, except as documented and Reports as per HPI Integumentary/Breasts Skin/Breast: Reports system reviewed and no additional complaints, except as documented and Reports as per HPI *Neurologic Neurologic: Reports as per HPI, Reports behavioral changes and Reports confusion Psychiatric Psychiatric: Reports system reviewed and no additional complaints, except as documented, Reports as per HPI, Reports behavioral changes, Reports confusion and Reports irritability Endocrine Endocrine: Reports system reviewed and no additional complaints, except as documented and Reports as per HPI Hematologic/Lymphatic Hematologic/Lymphatic: Reports system reviewed and no additional complaints, except as documented and Reports as per HPI Allergic/Immunologic Allergic/Immunologic: Reports system reviewed and no additional complaints, except as documented and Reports as per HPI Meds Home Medications and Allergies Home Medications ?Medication ?Instructions ?Recorded ?Confirmed ?Type albuterol sulfate 2.5 mg/3 mL 2.5 mg inhalation Q6HP P RN 12/29/18 04/13/25 History (0.083 %) solution for nebulization Shortness Of Breat h buprenorphine 8 mg-naloxone 2 mg 2 film sublingual YEISON LY 10/20/24 04/13/25 History sublingual film clopidogrel 75 mg tablet 75 mg PO DAILY 10/20/2403/17 History gabapentin 800 mg tablet 800 mg PO TID 10/20/2404/13 History levothyroxine 25 mcg tablet 25 mcg PO DAILYDM 10/20/24 04/13/25 History losartan 50 mg tablet 75 mg PO DAILY 10/20/2403/17 History rosuvastatin 20 mg tablet 20 mg PO DAILY 10/20/2403/17 History fluticasone fur. 100 mcg-umeclid 1 inh inhalation OMERO Y #60 ea 10/22/24 04/13/25 Rx 62.5 mcg-vilant 25 mcg inhalat.powder (Trelegy Ellipta) metoprolol succinate 25 mg 25 mg PO DAILY #0 tabs 02/0704/13/25 Rx tablet,extended release 24 hr ondansetron 4 mg disintegrating 4 mg PO Q8H PRN nausea and 11/05/24 04/13/25 Rx tablet vomiting #20 tabs albuterol sulfate 90 mcg/actuation 2 puff inhalation Q 4H 11/12/24 04/13/25 History aerosol inhaler apixaban 5 mg tablet (Eliquis) See Rx Instructions .Ro pilot point 02/25/25 04/13/25 Rx .COMPLEX #60 tabs New Prescriptions to Start Prescriptions: Allergies Allergy/AdvReac Type Severity Reaction Status Date / Time Sulfa (Sulfonamide Allergy Mild Anaphylaxis Verified 12/05/24 10:01 Antibiotics) Exam Data for Last 24 hours Vital signs and Labs for Last 24 Hours: Temp Pulse Resp BP Pulse Ox O2 Del Method 98.4 F 105 H 18 167/99 H 94 L Room Air 04/13/25 00:00 04/13/25 00:00 04/13/25 00:00 04/13/25 00:00 04/13/25 00:00 04/13/25 03:00 Laboratory Results - last 24 hr 04/12/25 20:25: WBC 4.4 L, RBC 3.53 L, Hgb 7.1 L, Hct 24.8 L, MCV 70.3 L, MCH 20.1 L, MCHC 28.6 L, RDW 17.9 H, Plt Count 225, MPV 9.8, Neut % (Auto) 68.1, Lymph % (Auto) 18.5, Grant % (Auto) 10.6 H, Eos % (Auto) 1.4, Baso % (Auto) 0.9, Neut # (Auto) 3.0, Lymph # (Auto) 0.8, Grant # (Auto) 0.5, Eos # (Auto) 0.1, Baso # (Auto) 0.0, Sodium 136, Potassium 3.8, Chloride 101, Carbon Dioxide 24, Anion Gap 14.8, BUN 7, Creatinine 0.60, Estimated Creat Clear 35, Estimated GFR 99, Est GFR ( Amer) 119, Glucose 108 H, Calcium 8.5, Magnesium 2.0, Total Bilirubin 0.6, AST 27, ALT 11 L, Alkaline Phosphatase 89, Troponin I 0.05 H, Total Protein 7.7, Albumin 3.8, Globulin 3.9 H, Albumin/Globulin Ratio 1.0 L, Lipase 168 04/12/25 21:38: Urine Color Yellow, Urine Appearance Clear, Urine pH 6.0, Ur Specific [place] 1.015, Urine Protein Trace, Urine Glucose (UA) Negative, Urine Ketones Trace, Urine Blood Trace-i, Urine Nitrate Negative, Urine Bilirubin Negative, Urine Urobilinogen 0.2, Ur Leukocyte Esterase Negative, Urine RBC None, Urine WBC 5-10, Ur Squamous Epith Cells Occasional, Urine Bacteria Trace, Urine Opiates Screen Negative, Urine Methadone Screen Negative, Ur Barbituates Screen Negative, Ur Phencyclidine Scrn Negative, Ur Amphetamines Screen Negative, U Benzodiazepines Scrn Negative, Urine Cocaine Screen Negative, U Marijuana (THC) Screen Negative 04/12/25 22:56: VBG pH 7.38, VBG pCO2 37.8, VBG pO2 46.2 H, VBG HCO3 21.9 L, VBG Total CO2 23.0, VBG O2 Saturation 78.7 H, VBG Base Excess -3.3 L, VBG Lactic Acid 2.2 H, Troponin I 0.06 H 04/12/25 23:40: Chlamy pneumoniae PCR Not detected, Adenovirus (PCR) Not detected, B. pertussis DNA (PCR) Not detected, Coronavirus OC43 (PCR) Not detected, Coronavirus HKU1 (PCR) Not detected, Coronavirus 229E (PCR) Not detected, SARS-CoV-2 (PCR) Not detected, Coronavirus NL63 (PCR) Not detected, Human Metapneumovir PCR Not detected, Influenza A (H1) PCR Not detected, Influ A (H1N1/09) PCR Not detected, Influenza A (H3) PCR Not detected, Influenza Type A (PCR) Not detected, Influenza Type B (PCR) Not detected, M. pneumoniae (PCR) Not detected, Parainfluenza 1 (PCR) Not detected, Parainfluenza 2 (PCR) Not detected, Parainfluenza 3 (PCR) Not detected, Parainfluenza 4 (PCR) Not detected, RSV (PCR) Not detected, Entero/Rhino (PCR) Not detected 04/13/25 03:53: Troponin I 0.09 H I & O for Last 24 hours: Intake & Output 04/10/25 04/11/25 04/12/25 04/13/25 23:59 23:59 23:59 23:59 Intake Total 1000 / 1000 Balance 1000 / 1000 Weight 43.091 kg 42.275 kg Constitutional Constitutional: mild distress and chronically ill appearing *Routine HEENT Exam Head: Present normocephalic and atraumatic Eye: Present EOMI and PERRL ENT: Present mucous membranes moist *Routine Neck Exam Neck: Present supple and full ROM *Routine Respiratory Exam Respiratory: Present normal respiratory effort *Routine Cardiovascular Exam Cardiovascular: Present RRR, Normal S1 and Normal S2 *Routine Abdominal Exam Abdominal: Present soft and normoactive bowel sounds *Routine Rectal Exam Rectal:: deferred *Routine Genitalia Exam Genitalia:: deferred *Routine Extremities Exam Extremities: Present full ROM, pulses intact and normal capillary refill Routine Back/Spine/Pelvis Exam Back/Spine: Present full ROM *Routine Skin Exam Skin: Present intact *Routine Neurological Exam Neurological: Present altered mental status Assessment and Plan *Assessment and plan (1) Encephalopathy: Status: Acute Category: Medical Code(s): G93.40 - Encephalopathy, unspecified (2) Mass of right lung: Status: Acute Category: Medical Code(s): R91.8 - Other nonspecific abnormal finding of lung field (3) Hemoptysis: Status: Acute Category: Medical Code(s): R04.2 - Hemoptysis (4) Anemia: Status: Acute Category: Medical Code(s): D64.9 - Anemia, unspecified (5) Subclavian artery thrombosis: Status: Acute Category: Medical Code(s): I74.8 - Embolism and thrombosis of other arteries (6) Hypertension: Status: Acute Qualifiers: Hypertension type: renovascular hypertension Qualified Code(s): I15.0 - Renovascular hypertension Category: Medical Code(s): I10 - Essential (primary) hypertension (7) Coronary artery disease: Status: Chronic Qualifiers: Associated angina: without angina Coronary Disease-Associated Artery/Lesion type: [place] artery [place] vs. transplanted heart: [place] heart Qualified Code(s): I25.10 - Atherosclerotic heart disease of [place] coronary artery without angina pectoris Category: Medical Code(s): I25.10 - Atherosclerotic heart disease of [place] coronary artery without angina pectoris (8) COPD (chronic obstructive pulmonary disease): Status: Acute Qualifiers: COPD type: unspecified COPD Qualified Code(s): J44.9 - Chronic obstructive pulmonary disease, unspecified Category: Medical Code(s): J44.9 - Chronic obstructive pulmonary disease, unspecified (9) Tobacco use: Status: Acute Category: Social Hx Code(s): Z72.0 - Tobacco use Plan Assessment/plan: I personally discussed the management of this patient with the emergency department provider and agree with admission for further evaluation treatment. Patient is a 70-year-old female presented with increasing confusion. Daughter at bedside resides with her currently and noted confusion began yesterday and progressively became worse. Patient is typically alert and oriented x 3. Reports patient complained of stomach discomfort yesterday. Decreased fluid in nutritional intake since with confusion. Reports ongoing hemoptysis. Hemoglobin 7.1 with ED workup. Known right lung mass with concern of malignancy. Underwent a bronchoscopy past October with pulmonary with reassuring findings although adjusted follow-up in [place] navigational bronchoscopy. Also recommended follow-up with hematology due to ongoing hemoptysis, requiring anticoagulation due to subclavian arterial thrombosis initially placed on Lovenox currently on Eliquis. Daughter states patient refuses to follow to these providers. Continue to monitor neuro-status, gentle IV fluids for hydration, trend morning labs, monitor vitals closely. Monitor for any active bleeding, transfuse packed red blood cell for hemoglobin less than 7. Possible follow-up with pulmonary. 1. Acute encephalopathy/anemia/hemoptysis/right lung mass: Acute confusion, undetermined source. WBC wnl, UA unremarkable, UDS negative. CT without acute findings. Alert to self only. Daughter at bedside who resides with corine reports confusion began yesterday. States she stopped drinking and eating yesterday d/t abdominal discomfort. Intermittent hemoptysis. Known right lung mass. Biopsy October w/out evidence of malignancy. Pulmonary encouraged f/u w/ hematology. Pt. daughter stated pt. refused along with f/u to [place] to undergo navigational bronch. Hgb 7.1 on admission, significantly lower than prior finding of 13. Anticoagulated with eliquis. hx of subclavian artery thrombosis initially was placed on Lovenox transition to Eliquis. Holding anticoagulation-Monitor hgb or active bleeding. Transfuse for hgb less than 7. Trend labs. Due to decreased mentation will place on clear liquid diet-advance as tolerated. 2. Hypertension/CAD: Elevated on arrival 170/70 range, daughter endorses blood pressure typically stays elevated. Resume antihypertensive medication metoprolol 25 mg. Losartan 75 mg daily, and statin therapy. BP currently 150 systolically-if patient becomes consistently hypertensive can place as needed IV hydralazine for systolic pressures greater than 160. 3. COPD: Stable, without any acute respiratory distress. On room air. Resume home inhaler Trelegy and albuterol nebs as needed. Pulmonary hygiene. 4. Tobacco abuse: Current tobacco smoker, longtime use. Daughter states patient with no plan of stopping. Currently confused, continue to monitor, if patient becomes more alert will offer nicotine patch with tobacco cessation encouragement. 5. DVT prophylaxis: SCD's Full code Clear liquid-advance as tolerated Next of kin/daughter
[2025-04-13] MEDS: ALBUTEROL-HFA 90MCG/PUFF INHALER 8GM 2 PUFF IH ×5 (06:39→22:07)
[2025-04-13] MEDS: AEROCHAMBER/OPTIHALER 1 UNIT MC (06:39)
[2025-04-13 06:53] LABS: Immature Granulocytes % 0.8 %; Mean Corpuscular HGB Conc 28.6 g/dL (31.8-35.4); Mean Corpuscular Hemoglobin 20.2 pg (27.0-31.2); Mean Corpuscular Volume 70.6 fl (81-99); Nucleated Red Blood Cells % 0 %; Platelet Count 181 K/mm3 (142-424); Red Blood Count 2.82 M/mm3 (4.20-5.40); Red Cell Distribution Width-SD 45.5 fL; White Blood Count 3.7 K/mm3 (4.8-10.8)
[2025-04-13 06:55] LABS: Hematocrit 19.9 % (37.0-47.0)
[2025-04-13 07:05] LABS: Lactic Acid Follow Up (RFLX 1) 1.1 mmol/L (0.7-2.1)
[2025-04-13 07:06] LABS: Alanine Aminotransferase 9 U/L (12-78); Albumin Level 3.2 g/dl (3.5-5.0); Albumin/Globulin Ratio 1.0 (1.1-1.8); Alkaline Phosphatase 75 U/L (38-126); Anion Gap 7.2 mEq/L (5-15); Aspartate Amino Transferase 32 U/L (14-36); Bilirubin,Total 0.6 mg/dl (0.2-1.3); Blood Urea Nitrogen 6 mg/dl (7-17); Calcium 7.8 mg/dl (8.4-10.2); Carbon Dioxide 19 mmol/L (22.0-30.0); Chloride 104 mmol/L (98-107); Creatinine Clearance Estimated 34 mL/min (50-200); Creatinine,Serum 0.50 mg/dl (0.52-1.04); Estimated Glomerular Filt Rate 122 ml/min (>60); GFR (African American) 147 ML/MIN (>60); Globulin 3.2 g/dL (1.3-3.2); Glucose 108 mg/dl (74-100); Magnesium 1.8 mg/dl (1.6-2.3); Phosphorous 3.2 mg/dl (2.5-4.5); Potassium 3.2 mmoL/L (3.5-5.1); Sodium 127 mmol/L (136-145); Total Protein,Serum 6.4 g/dl (6.3-8.2)
--- NOTE | 2025-04-13 07:13 | PC.NURSE ---
Spoke with Dr. Ribeiro about patient H&H results. New orders received.
[2025-04-13 07:15] LABS: Hemoglobin 5.8 g/dL (12.2-16.2)
[2025-04-13 07:22] LABS: Free T4 (Free Thyroxine) 1.49 ng/dl (0.78-2.19)
[2025-04-13 07:23] LABS: Procalcitonin 0.050 ng/mL (0.0-2.0)
[2025-04-13 07:37] LABS: Thyroid Stimulating Hormone 1.09 uIU/mL (0.465-4.68)
[2025-04-13] MEDS: LEVOTHYROXINE 25MCG (0.025MG) TAB 25 MCG PO (08:10)
--- NOTE | 2025-04-13 09:02 | PC.NURSE ---
pt hemoglobin came back at 5.7 and hematocrit was 19.9. dr has ordered two units of blood and a third on standby. i tried multiple times to call daughter to get consent but was unable to reach her. i did leave a voicemail. pt has been confused so not able to get consent from her. dr cesar signed the consent.
[2025-04-13] MEDS: 0.9 % SODIUM CHLORIDE 250 ML 25 ML IV (09:40)
[2025-04-13] MEDS: IRBESARTAN 75MG TABLET 112.5 MG PO (09:41)
[2025-04-13] MEDS: METOPROLOL SUCCINATE XL 25MG TABLET 25 MG PO (09:41)
[2025-04-13] MEDS: FLUTICASONE/UMECLIDIN/VILANTER 100/62.5/25MCG INHALER 1 PUFF IH (10:11)
--- NOTE | 2025-04-13 12:36 | EXP.ACUTE.PN ---
Subjective *Date: 04/13/25 *Time: 15:28 Interval history: Much better on morning rounds. Oriented to person and place. Knows who she is and that she is at the hospital in [place]. Knows her date of . No nausea or vomiting. Denies chest pain. Receiving blood. Complains of just feeling weak. Does not recall coming to the hospital. Medical Exam Vital signs and Labs for Last 24 Hours: Vital Signs Temp Pulse Pulse Resp BP BP Pulse Ox 04/13/25 12:11 98.6 F 83 16 168/75 H 95 04/13/25 11:35 98.1 F 80 16 155/70 H 95 04/13/25 11:10 04/13/25 10:35 93 H 16 164/84 H 95 04/13/25 10:20 98.2 F 90 16 139/78 92 L 04/13/25 10:05 91 H 18 141/71 H 93 L 04/13/25 09:50 98.0 F 88 16 138/60 94 L 04/13/25 09:45 98.2 F 79 16 138/56 L 94 L 04/13/25 09:40 98.3 F 80 16 131/59 L 94 L 04/13/25 09:35 98.4 F 80 16 135/54 L 93 L 04/13/25 09:32 98.8 F 93 H 16 144/61 H 91 L 04/13/25 09:10 04/13/25 08:30 98 04/13/25 08:00 97.9 F 96 H 18 139/58 L 98 04/13/25 05:00 04/13/25 03:00 04/13/25 01:00 04/13/25 00:00 98.4 F 105 H 18 167/99 H 94 L 04/12/25 23:57 98.2 F 88 17 158/97 H 04/12/25 23:30 04/12/25 23:01 114 H 178/75 H 96 04/12/25 22:31 114 H 163/95 H 93 L 04/12/25 22:00 99 H 179/83 H 98 04/12/25 21:30 90 178/70 H 97 04/12/25 21:28 97 H 175/88 H 97 04/12/25 21:00 99 H 187/82 H 96 04/12/25 20:30 97 H 176/75 H 96 04/12/25 20:26 98.8 F 94 H 16 169/86 H 97 O2 Del Method 04/13/25 12:11 04/13/25 11:35 04/13/25 11:10 Room Air 04/13/25 10:35 04/13/25 10:20 04/13/25 10:05 04/13/25 09:50 04/13/25 09:45 04/13/25 09:40 04/13/25 09:35 04/13/25 09:32 04/13/25 09:10 Room Air 04/13/25 08:30 Room Air 04/13/25 08:00 Room Air 04/13/25 05:00 Room Air 04/13/25 03:00 Room Air 04/13/25 01:00 Room Air 04/13/25 00:00 Room Air 04/12/25 23:57 Room Air 04/12/25 23:30 Room Air 04/12/25 23:01 04/12/25 22:31 04/12/25 22:00 04/12/25 21:30 04/12/25 21:28 04/12/25 21:00 04/12/25 20:30 04/12/25 20:26 Room Air Intake and Output 04/12/25 04/13/25 04/13/25 23:59 07:59 15:59 Intake Total 1000 / 1520 520 / 1520 Balance 1000 / 1520 520 / 1520 Intake: Intake, Oral Amount 520 / 520 Intake, Total IV Amount 1000 / 1000 0.9 % Sodium Chloride 1000ML 1, 1000 / 1000 000 ml @ 999 mls/hr IV .Q1H1M ONE Rx#:[id number] Intake (Blood Product) Amt 0 / 0 Red Blood Cells Unit 0 / 0 [id number] Other: Weight 43.091 kg 42.275 kg Patient Weight 04/13/25 23:59 Weight 42.275 kg Laboratory Results - last 24 hr 04/12/25 20:25: WBC 4.4 L, RBC 3.53 L, Hgb 7.1 L, Hct 24.8 L, MCV 70.3 L, MCH 20.1 L, MCHC 28.6 L, RDW 17.9 H, Plt Count 225, MPV 9.8, Neut % (Auto) 68.1, Lymph % (Auto) 18.5, [place] % (Auto) 10.6 H, Eos % (Auto) 1.4, Baso % (Auto) 0.9, Neut # (Auto) 3.0, Lymph # (Auto) 0.8, [place] # (Auto) 0.5, Eos # (Auto) 0.1, Baso # (Auto) 0.0, Sodium 136, Potassium 3.8, Chloride 101, Carbon Dioxide 24, Anion Gap 14.8, BUN 7, Creatinine 0.60, Estimated Creat Clear 35, Estimated GFR 99, Est GFR ( Amer) 119, Glucose 108 H, Calcium 8.5, Magnesium 2.0, Total Bilirubin 0.6, AST 27, ALT 11 L, Alkaline Phosphatase 89, Troponin I 0.05 H, Total Protein 7.7, Albumin 3.8, Globulin 3.9 H, Albumin/Globulin Ratio 1.0 L, Lipase 168 04/12/25 21:38: Urine Color Yellow, Urine Appearance Clear, Urine pH 6.0, Ur Specific [place] 1.015, Urine Protein Trace, Urine Glucose (UA) Negative, Urine Ketones Trace, Urine Blood Trace-i, Urine Nitrate Negative, Urine Bilirubin Negative, Urine Urobilinogen 0.2, Ur Leukocyte Esterase Negative, Urine RBC None, Urine WBC 5-10, Ur Squamous Epith Cells Occasional, Urine Bacteria Trace, Urine Opiates Screen Negative, Urine Methadone Screen Negative, Ur Barbituates Screen Negative, Ur Phencyclidine Scrn Negative, Ur Amphetamines Screen Negative, U Benzodiazepines Scrn Negative, Urine Cocaine Screen Negative, U Marijuana (THC) Screen Negative 04/12/25 22:56: VBG pH 7.38, VBG pCO2 37.8, VBG pO2 46.2 H, VBG HCO3 21.9 L, VBG Total CO2 23.0, VBG O2 Saturation 78.7 H, VBG Base Excess -3.3 L, VBG Lactic Acid 2.2 H, Troponin I 0.06 H 04/12/25 23:40: Chlamy pneumoniae PCR Not detected, Adenovirus (PCR) Not detected, B. pertussis DNA (PCR) Not detected, Coronavirus OC43 (PCR) Not detected, Coronavirus HKU1 (PCR) Not detected, Coronavirus 229E (PCR) Not detected, SARS-CoV-2 (PCR) Not detected, Coronavirus NL63 (PCR) Not detected, Human Metapneumovir PCR Not detected, Influenza A (H1) PCR Not detected, Influ A (H1N1/09) PCR Not detected, Influenza A (H3) PCR Not detected, Influenza Type A (PCR) Not detected, Influenza Type B (PCR) Not detected, M. pneumoniae (PCR) Not detected, Parainfluenza 1 (PCR) Not detected, Parainfluenza 2 (PCR) Not detected, Parainfluenza 3 (PCR) Not detected, Parainfluenza 4 (PCR) Not detected, RSV (PCR) Not detected, Entero/Rhino (PCR) Not detected 04/13/25 03:53: Troponin I 0.09 H 04/13/25 06:10: WBC 3.7 L, RBC 2.82 L, Hgb 5.8 L*, Hct 19.9 L*, MCV 70.6 L, MCH 20.2 L, MCHC 28.6 L, RDW 18.0 H, Plt Count 181, MPV 11.0 H, Neut % (Auto) 67.3, Lymph % (Auto) 20.2, [place] % (Auto) 10.9 H, Eos % (Auto) 0.0 L, Baso % (Auto) 0.8, Neut # (Auto) 2.5, Lymph # (Auto) 0.7, [place] # (Auto) 0.4, Eos # (Auto) 0.0, Baso # (Auto) 0.0, Sodium 127 L, Potassium 3.2 L, Chloride 104, Carbon Dioxide 19 L, Anion Gap 7.2, BUN 6 L, Creatinine 0.50 L, Estimated Creat Clear 34, Estimated GFR 122, Est GFR ( Amer) 147 D, Glucose 108 H, Lactate 1.1, Calcium 7.8 L, Phosphorus 3.2, Magnesium 1.8, Total Bilirubin 0.6, AST 32, ALT 9 L, Alkaline Phosphatase 75, Total Protein 6.4, Albumin 3.2 L D, Globulin 3.2, Albumin/Globulin Ratio 1.0 L, Procalcitonin 0.050, TSH 1.09, Free T4 1.49 04/13/25 07:30: Blood Type A Positive, Antibody Screen Negative, Crossmatch (AHG) See Detail 04/13/25 : Blood Type Confirm A Positive I & O for Labs for Last 24 Hours: Intake & Output 04/10/25 04/11/25 04/12/25 04/13/25 23:59 23:59 23:59 23:59 Intake Total 1520 / 1520 Balance 1520 / 1520 Weight 43.091 kg 42.275 kg Constitutional: Present no acute distress, cachectic, chronically ill appearing and cooperative Head: Present atraumatic and normocephalic Respiratory: Absent rhonchi, wheezes or crackles Cardiac: Present Reg Rate and Rhythm and Audible Murmur GI: Present soft; Absent distention Skin: Present pallor Neuro: Present Grossly Intact, alert, awake and oriented x 3 Assessment and Plan *Assessment and plan (1) Encephalopathy: Status: Acute Qualifiers: Encephalopathy type: metabolic Qualified Code(s): G93.41 - Metabolic encephalopathy Category: Medical Code(s): G93.40 - Encephalopathy, unspecified (2) Mass of right lung: Status: Acute Category: Medical Code(s): R91.8 - Other nonspecific abnormal finding of lung field (3) Hemoptysis: Status: Acute Category: Medical Code(s): R04.2 - Hemoptysis (4) Anemia: Status: Acute Qualifiers: Anemia type: other cause Other causes of anemia: acute posthemorrhagic Qualified Code(s): D62 - Acute posthemorrhagic anemia Category: Medical Code(s): D64.9 - Anemia, unspecified (5) Subclavian artery thrombosis: Status: Acute Category: Medical Code(s): I74.8 - Embolism and thrombosis of other arteries (6) Hypertension: Status: Acute Qualifiers: Hypertension type: renovascular hypertension Qualified Code(s): I15.0 - Renovascular hypertension Category: Medical Code(s): I10 - Essential (primary) hypertension (7) Coronary artery disease: Status: Chronic Qualifiers: Associated angina: without angina Coronary Disease-Associated Artery/Lesion type: [place] artery [place] vs. transplanted heart: [place] heart Qualified Code(s): I25.10 - Atherosclerotic heart disease of [place] coronary artery without angina pectoris Category: Medical Code(s): I25.10 - Atherosclerotic heart disease of [place] coronary artery without angina pectoris (8) COPD (chronic obstructive pulmonary disease): Status: Acute Qualifiers: COPD type: unspecified COPD Qualified Code(s): J44.9 - Chronic obstructive pulmonary disease, unspecified Category: Medical Code(s): J44.9 - Chronic obstructive pulmonary disease, unspecified (9) Tobacco use: Status: Acute Category: Social Hx Code(s): Z72.0 - Tobacco use (10) Severe protein-calorie malnutrition: Status: Acute Category: Medical Code(s): E43 - Unspecified severe protein-calorie malnutrition Plan Patient is a 70-year-old female presented with increasing confusion. Daughter at bedside resides with her currently and noted confusion began yesterday and progressively became worse. Patient is typically alert and oriented x 3. Reports patient complained of stomach discomfort yesterday. Decreased fluid in nutritional intake since with confusion. Reports ongoing hemoptysis. Hemoglobin 7.1 with ED workup. Known right lung mass with concern of malignancy. Underwent a bronchoscopy past October with pulmonary with reassuring findings although adjusted follow-up in [facility] navigational bronchoscopy. Also recommended follow-up with hematology due to ongoing hemoptysis, requiring anticoagulation due to subclavian arterial thrombosis initially placed on Lovenox currently on Eliquis. Daughter states patient refuses to follow to these providers. Continue to monitor neuro-status, gentle IV fluids for hydration, trend morning labs, monitor vitals closely. Monitor for any active bleeding, transfuse packed red blood cell for hemoglobin less than 7. Possible follow-up with pulmonary. Showing improvement this morning. Continues to require inpatient management for transfusion. Problems addressed as follows Acute toxic encephalopathy Acute blood loss anemia due to coagulopathy from anticoagulants hemoptysis right lung mass: - Acute confusion, undetermined source. WBC wnl, UA unremarkable, UDS negative. CT without acute findings. Alert to self only on presentation - Orientation improved by morning. Held her gabapentin and Suboxone. Suspect toxic component to her encephalopathy - No hemoptysis since admission. Currently transfusing for her anemia. Hemoglobin this morning lower at 5.8. Will have post transfusion H&H after transfusing 2 units. White count 3.7, platelets 181. - Repeat CBC, CMP, magnesium ordered for the morning. Kidney function stable with BUN 7, creatinine 0.6. - Per history, she has Intermittent hemoptysis. Known right lung mass. Biopsy October w/out evidence of malignancy. Pulmonary encouraged f/u w/ hematology. Pt. daughter stated pt. refused along with f/u to [facility] to undergo navigational bronch. - Holding Eliquis. - Transfuse for hgb less than 7. Hypertension/CAD: Blood pressure still evaded resume losartan 75 mg daily and metoprolol succinate 25 mg delfino COPD: Stable, without any acute respiratory distress. On room air. Resume home inhaler Trelegy and albuterol nebs as needed. Pulmonary hygiene. Opiate use disorder/chronic pain - On Suboxone and gabapentin. Concern her encephalopathy is related to polypharmacy given her improvement this morning. Resume Suboxone at half dose of 8/2 mg once daily. Holding her gabapentin. Monitor for withdrawal symptoms. Tobacco abuse: Current tobacco smoker, longtime use. Daughter states patient with no plan of stopping. Currently confused, continue to monitor, if patient becomes more alert will offer nicotine patch with tobacco cessation encouragement. Severe protein calorie malnutrition. Nutrition consulted. Continue supplementation with meals DVT prophylaxis: SCD's Full code Regular diet Next of kin/daughter
--- OUTSIDE RECORDS SUMMARY | 2025-04-13 15:37 | XMS_ITS | Clinical Summary ---
Author Organization [facility] Address [address] [place] [address] Care Team Providers Care Supervisor Sterile Processing Name Role Phone Mode Meek MD Primary Care Provider [phone] Allergies Active Allergy Reactions Criticality Noted Date Comments Sulfa Antibiotics Anaphylaxis,Swelling High 03/23/20 18 Medications loratadine (CLARITIN) 10 MG tablet Take 10 mg by mouth Daily As Needed. Active vitamin D (ERGOCALCIFEROL ) 61069 units capsule capsule Take 50,000 Units by [...] (06/27/2018): Added automatically from request for surgery [id number] Essential hypertension 05/10/2018 Carotid stenosis, bilateral 05/10/2018 [...] season) 2025 Medical Devices Implanted Type Area Aging Room Hand Device Identifier Shelf Expiration Date Model / Serial / Lot [facility] Vascuguard 1x6cm - [id number] Implanted:Qty: 1 on 07/17/2018 by Anshu Cazares MD at [facility] Implant Right: Carotid SY[employer]IS 12/22/2022 [id number] / / [id number] Insurance MEDICARE A & B Member Subscriber Plan / Payer (Ef fective 2019-Present) Name:Anisha Grier Member ID:[id number] Relation to Subscriber:Self Name:Anisha Grier Subscriber ID:[id number] Payer ID:[id number] Group ID:Not on file Type:Not on file Address: [address] MEDICARE ADVANTAGE Advance Directives * CPR (Attempt to Resuscitate) (Latest Code Status on File) Date Activated Date Inactivated Comments 07/17/2018 1:37 PM 07/18/2018 3:11 PM Question Answer Comments Code Status (Patient has no pulse and is not breathing): CPR (Attempt to Resuscitate) Medical Interventions (Patie nt has pulse or is breathing): Full Care Teams Supervisor Sterile Processing Relationship Specialty Start Date End Date Mode Meek MD [address] [facility] [address] ATTN: [place] [address] PCP - General Emergency Medicine 03/23/18
--- OUTSIDE RECORDS SUMMARY | 2025-04-13 15:37 | XMS_ITS | Referral Summary ---
Author Organization [employer] ([place], [place], [place], [place], [place]) Address [address] [place] [address] Care Team Providers Care Mammalogy Teacher Name Role Phone Unavailable Primary Care [...]
--- OUTSIDE RECORDS SUMMARY | 2025-04-13 15:37 | XMS_ITS | Encounter Summary ---
Author Organization Healthcare Address [address] [place] [address] Care Team Providers Care Filter Changing Technician Name Role Phone Mode Meek MD Primary Care Provider [phone] Encounter Details Date Type Department Care Team ([facility] st Contact Info) Description 10/20/2024 Orders Only External Location [address] [place] [address] Provider, External Social History Tobacco Use Types [...] on filedocumented in this encounter Care Teams Filter Changing Technician Relationship Specialty Start Date End Date Mode Meek MD [address] [place] [id number] PCP - General 05/16/20 documented as of this encounter
--- OUTSIDE RECORDS SUMMARY | 2025-04-13 15:37 | XMS_ITS | Encounter Summary ---
Author Organization [facility] Address [address] [place] [address] Care Team Providers Care Smoking Tobacco Cutter Operator Name Role Phone Mode Meek MD Primary Care Provider [phone] Encounter Details Date Type Department Care Team ([facility] st Contact Info) Description 02/25/2025 Telephone [facility] [address] [place] [address] Eunice Abbott, RN [facility] - [facility] None Social History Tobacco Use Types Packs/Day [...] Name: Anisha Grier :1955 Date:02/25/2025 Affiliate site: [facility] Referring Physician: Josafat De La Vega Education/ Information provided: This Nurse Liaison spoke with Anisha Grier prior to an appointment on 03/04/2025. Explained nurse liaison services offered through [facility]. Discussed appointment necessity, and that she would be seeing Dr. Perea in the [facility].. Patient verbalizes understanding. Patient denied any barriers to arriving to clinic visit and will be accompanied by her daughter. Providedpatient with liaison contact information and encouraged patient to call with any questions, concerns or assistance needs. Will follow up with patient after appointment. Eunice Abbott, RN [facility] Nurse Liaison [phone] documented in this encounter Plan of Treatment Not on file documented as of this encounter Visit Diagnoses Not on filedocumented in this encounter Care Teams Smoking Tobacco Cutter Operator Relationship Specialty Start Date End Date Mode Meek MD [address] [place] [address] PCP - General 05/16/20 documented as of this encounter
--- OUTSIDE RECORDS SUMMARY | 2025-04-13 15:37 | XMS_ITS | Encounter Summary ---
Author Organization Healthcare Address [address] [place] [address] Care Team Providers Care Electrician Chief Name Role Phone Mode Meek MD Primary Care Provider [phone] Encounter Details Date Type Department Care Team ([facility] st Contact Info) Description 10/20/2024 Orders Only External Location [address] [place] [address] Provider, External Social History Tobacco Use Types [...] on filedocumented in this encounter Care Teams Electrician Chief Relationship Specialty Start Date End Date Mode Meek MD [address] [place] [id number] PCP - General 05/16/20 documented as of this encounter
--- OUTSIDE RECORDS SUMMARY | 2025-04-13 15:37 | XMS_ITS | Encounter Summary ---
Author Organization Healthcare Address [address] [place] [address] Care Team Providers Care Aix System Administrator Name Role Phone Mode Meek MD Primary Care Provider [phone] Encounter Details Date Type Department Care Team ([facility] st Contact Info) Description 10/20/2024 Orders Only External Location [address] [place] [address] Provider, External Social History Tobacco Use Types [...] on filedocumented in this encounter Care Teams Aix System Administrator Relationship Specialty Start Date End Date Mode Meek MD [address] [place] [id number] PCP - General 05/16/20 documented as of this encounter
--- OUTSIDE RECORDS SUMMARY | 2025-04-13 15:37 | XMS_ITS | Encounter Summary ---
Author Organization Healthcare Address [address] [place] [address] Care Team Providers Care Pad Machine Feeder Name Role Phone Mode Meek MD Primary Care Provider [phone] Encounter Details Date Type Department Care Team ([facility] st Contact Info) Description 10/20/2024 Orders Only External Location [address] [place] [address] Provider, External Social History Tobacco Use Types [...] on filedocumented in this encounter Care Teams Pad Machine Feeder Relationship Specialty Start Date End Date Mode Meek MD [address] [place] [id number] PCP - General 05/16/20 documented as of this encounter
--- OUTSIDE RECORDS SUMMARY | 2025-04-13 15:37 | XMS_ITS | Clinical Summary ---
Author Organization [employer] ([place], [place], [place], [place], [place]) Address [address] [place] [address] Care Team Providers Care Director Clinical Research Name Role Phone Unavailable Primary Care Provider [...]
--- OUTSIDE RECORDS SUMMARY | 2025-04-13 15:38 | XMS_ITS | Clinical Summary ---
Author Organization [facility] Address [address] [place] [address] Care Team Providers Care Production Control Coordinating Clerk Name Role Phone Mode Meek MD Primary Care Provider [phone] Encounters Date Type Department Care Team Description 02/25/2025 Telephone [facility] [address] [place] [address] Eunice Abbott RN from Last 3 Months [...] 10/19/2024 10/19/2021, 09/04/2018 [facility]-Colorectal Cancer Screening 10/19/2024 [id number] Vaccine (2 - 2024- season) 2025 08/19/2020 [...] complete this topic Insurance MEDICARE Care Teams Production Control Coordinating Clerk Relationship Specialty Start Date End Date Mode Meek MD [address] [place] [address] PCP - General 05/16/20
[2025-04-13 16:38] LABS: Hematocrit 33.1 % (37.0-47.0); Hemoglobin 10.6 g/dL (12.2-16.2)
[2025-04-13] MEDS: POTASSIUM CHLORIDE 20MEQ TAB 40 MEQ PO ×2 (16:44→21:04)
[2025-04-13] MEDS: CALCIUM CARBONATE 500MG CHEWTAB 500 MG PO (16:45)
[2025-04-13] MEDS: POLYETHYLENE GLYCOL 3350 17 GM PACKET PO ×2 (17:20→21:04)
[2025-04-13] MEDS: ACETAMINOPHEN 325MG TAB 650 MG PO (17:23)
[2025-04-13] MEDS: SENNOSIDES 8.6MG/DOCUSATE 50MG TABLET 1 TAB PO (21:04)
[2025-04-13] MEDS: ATORVASTATIN 20MG TABLET 20 MG PO (21:04)
[2025-04-13] MEDS: PANTOPRAZOLE 40MG VIAL 40 MG IV (21:05)
[2025-04-14 04:00] VITALS: BP 165/82; PULSE 83; RESP 16; TEMP 36.8; O2SAT 96; BMI 16.1
--- NOTE | 2025-04-14 05:51 | PC.NURSE ---
Pt is A&Ox4. She is on RA. Pt has scheduled Reginald treatments. She is a standby assist to the BR. PT is using a Pure wic and a brief. Pt has had a regular diet over night. She has a 18 gauge in her Left A/C. No C/O pain or discomfort. call light is with in reach. Bed is in the Lowest Position. JACOB REEDER RN
[2025-04-14] MEDS: LEVOTHYROXINE 25MCG (0.025MG) TAB 25 MCG PO (07:11)
[2025-04-14 07:23] LABS: Alanine Aminotransferase 9 U/L (12-78); Albumin Level 3.2 g/dl (3.5-5.0); Albumin/Globulin Ratio 0.9 (1.1-1.8); Alkaline Phosphatase 74 U/L (38-126); Anion Gap 8.5 mEq/L (5-15); Aspartate Amino Transferase 33 U/L (14-36); Bilirubin,Total 1.0 mg/dl (0.2-1.3); Blood Urea Nitrogen 9 mg/dl (7-17); Calcium 8.0 mg/dl (8.4-10.2); Carbon Dioxide 20 mmol/L (22.0-30.0); Chloride 105 mmol/L (98-107); Creatinine Clearance Estimated 36 mL/min (50-200); Creatinine,Serum 0.60 mg/dl (0.52-1.04); Estimated Glomerular Filt Rate 99 ml/min (>60); GFR (African American) 119 ML/MIN (>60); Globulin 3.4 g/dL (1.3-3.2); Glucose 99 mg/dl (74-100); Magnesium 2.1 mg/dl (1.6-2.3); Potassium 4.5 mmoL/L (3.5-5.1); Sodium 129 mmol/L (136-145); Total Protein,Serum 6.6 g/dl (6.3-8.2)
[2025-04-14 08:00] VITALS: BP 160/87; PULSE 85; RESP 14; TEMP 36.8; O2SAT 94
[2025-04-14 08:20] VITALS: BMI 16.1
[2025-04-14 08:22] LABS: Red Blood Count 4.45 M/mm3 (4.20-5.40); White Blood Count 5.5 K/mm3 (4.8-10.8)
[2025-04-14 08:23] LABS: Hematocrit 34.2 % (37.0-47.0); Hemoglobin 10.8 g/dL (12.2-16.2); Immature Granulocytes % 0.5 %; Mean Corpuscular HGB Conc 31.6 g/dL (31.8-35.4); Mean Corpuscular Hemoglobin 24.3 pg (27.0-31.2); Mean Corpuscular Volume 76.9 fl (81-99); Nucleated Red Blood Cells % 0 %; Platelet Count 140 K/mm3 (142-424); Red Cell Distribution Width-SD 54.9 fL
[2025-04-14 08:30] VITALS: O2SAT 94
--- NOTE | 2025-04-14 09:45 | EXP.DC.SUM ---
General Admission date:: 04/12/25 Discharge date: 04/14/25 HPI HPI HPI: Patient is a 70-year-old female past medical history significant for depression, anxiety, hypertension, hypothyroidism, COPD, tobacco abuse, CAD, prediabetes, right sided lung mass. Patient presents to [facility] ED due to increased confusion. Daughter accompanies patient at bedside. History provided per daughter as patient is a poor historian due to confusion. Reports her mother lives with her and noticed increased confusion over the last day. At baseline patient is A and O x 3. States yesterday she complained of stomach discomfort. Noted she has had very little to eat and drink over the last few days. There is also note of hemoptysis that has been intermittent in nature. There is a known right sided lung mass that has been evaluated per pulmonology. Bronchoscopy performed on 11/05/24 without evidence of malignancy. It was recommended that she followed up with navigational bronchoscopy in [place]. Daughter states that she did not want to follow-up for any further treatment. 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 There was concern at that time as well with her hemoptysis and recommended follow-up with hematology. Daughter also noted that she did not want to follow-up with this as well. ED workup revealed decreased hemoglobin of 7.1, prior hemoglobin October 2024 13.6. Other than hemoptysis daughter denies any other active bleeding. Patient is on anticoagulation with Eliquis. Denies any recent injury trauma. Denies nausea, vomiting, shortness of breath. Initial ED workup included laboratory studies and imaging study. WBC 4.4, RBC 3.53, hemoglobin 7.1, hematocrit 24.8, ALT 11, full respiratory panel obtained unremarkable, UA negative, urine drug screen negative. Imaging study included chest CTA, personally reviewed showing right upper lobe mass, left lower lobe nodule. Chest x-ray I personally reviewed along with head CT, without acute finding. Hypertensive in the emergency department blood pressure 170s over 70 range. Assessment of patient at bedside she is confused, mildly agitated, afebrile, on room air with adequate saturations. Daughter at bedside. Hospital Course Hospital Course Hospital Course: Ms. Grier is a 70-year-old female presented with increasing confusion. Daughter at bedside resides with her currently and noted confusion began yesterday and progressively became worse. Patient is typically alert and oriented x 3. Reports patient complained of stomach discomfort yesterday. Decreased fluid in nutritional intake since with confusion. Reports ongoing hemoptysis. Hemoglobin 7.1 with ED workup. Known right lung mass with concern of malignancy. Underwent a bronchoscopy past October with pulmonary with reassuring findings although adjusted follow-up in [place] navigational bronchoscopy. Also recommended follow-up with hematology due to ongoing hemoptysis, requiring anticoagulation due to subclavian arterial thrombosis initially placed on Lovenox currently on Eliquis. Daughter states patient refuses to follow to these providers. Mentation improved during admission by holding home medications. Energy somewhat better after transfusion. Hemoglobin remained stable with no further drops in hemoglobin. Strongly encouraged to follow-up with pulmonology and her PCP at patient's discretion. Discharged home with daughter. Problems addressed as follows: Acute toxic encephalopathy due to polypharmacy, present on admission Acute blood loss anemia due to coagulopathy from anticoagulants hemoptysis right lung mass/suspected malignancy with mediastinal and hilar lymphadenopathy -Ms. Grier is a longstanding smoker who continues to smoke. Found to have spiculated mass in right upper lobe earlier this year. Highly suspicious for cancer. Has had a biopsy that was inconclusive. Does not follow with specialist at this time and has not wanted to pursue any other workup. She has continued to have hemoptysis at home, worse with her anticoagulation. Presented with acute confusion of undetermined etiology. From review of her med list, she is on Suboxone and gabapentin. By holding her medications, her mentation improved by morning. She was also transfused 2 units packed red blood cells due to her anemia and drop in hemoglobin to 5.8. Responded briskly with improvement in hemoglobin above 10. Remained at 10.6 on morning of discharge. No further signs of bleeding. Hemoptysis resolved. Suspect acute on chronic anemia secondary to blood loss. Will hold her anticoagulation at this time. Has been on anticoagulation for 5 months. No previous history of blood clots prior to her concerning episode in October. Recommend further discussion with cardiology and primary care as they have been managing her anticoagulation. - Would benefit from repeat CBC in 1 week to monitor stability of hemoglobin. - Per history, she has Intermittent hemoptysis. Known right lung mass. Biopsy October w/out evidence of malignancy. Pulmonary encouraged f/u w/ hematology. Pt. daughter stated pt. refused along with f/u to [place] to undergo navigational bronch. - Holding Eliquis. Hypertension/CAD: Blood pressure mildly elevated. Continue home regimen of losartan 75 mg daily and metoprolol succinate 25 mg daily COPD: Stable, without any acute respiratory distress. On room air. Resume home inhaler Trelegy and albuterol nebs as needed. Opiate use disorder/chronic pain - On Suboxone and gabapentin. Concern her encephalopathy is related to polypharmacy given her improvement this morning. Resume Suboxone at half dose of 8/2 mg once daily during admission. Recommend continuing Suboxone 1.5 films (three quarters of her previous dose) at discharge to avoid withdrawal. Recommend further consideration of de-escalation of dosage as an outpatient per her prescribing provider. Recommend holding her gabapentin at this time. Has not had any withdrawal symptoms from these medications. Patient agreeable to this plan. Tobacco abuse: Current tobacco smoker, longtime use. Daughter states patient with no plan of stopping. Nicotine patch during admission. Severe protein calorie malnutrition. Nutrition consulted. Continue supplementation with meals Hyperthyroidism: Continue levothyroxine 25 mcg daily, TSH 1.09 on admission Gabapentin 800 mg 3 times a day for neuropathy total time spent on discharge 42 minutes in counseling, documentation, chart review, and direct care with patient. Exam Data for Last 24 hours Vital signs and Labs for Last 24 Hours: Temp Pulse Resp BP Pulse Ox O2 Del Method 98.3 F 85 14 160/87 H 94 L Room Air 04/14/25 08:00 04/14/25 08:00 04/14/25 08:00 04/14/25 08:00 04/14/25 08:00 04/14/25 08:00 Laboratory Results - last 24 hr 04/13/25 07:30: Blood Type A Positive, Antibody Screen Negative, Crossmatch (AHG) See Detail 04/13/25 16:25: Hgb 10.6 L D, Hct 33.1 L 04/14/25 05:55: WBC 5.5 D, RBC 4.45 D, Hgb 10.8 L, Hct 34.2 L, MCV 76.9 L, MCH 24.3 L, MCHC 31.6 L, RDW 19.8 H, Plt Count 140 L, Neut % (Auto) 64.0, Lymph % (Auto) 20.5, Coleman % (Auto) 13.2 H, Eos % (Auto) 0.9, Baso % (Auto) 0.9, Neut # (Auto) 3.5, Lymph # (Auto) 1.1, Coleman # (Auto) 0.7, Eos # (Auto) 0.1, Baso # (Auto) 0.1, Sodium 129 L, Potassium 4.5 D, Chloride 105, Carbon Dioxide 20 L, Anion Gap 8.5, BUN 9 D, Creatinine 0.60, Estimated Creat Clear 36, Estimated GFR 99, Est GFR ( Amer) 119, Glucose 99, Calcium 8.0 L, Magnesium 2.1 D, Total Bilirubin 1.0, AST 33, ALT 9 L, Alkaline Phosphatase 74, Total Protein 6.6, Albumin 3.2 L, Globulin 3.4 H, Albumin/Globulin Ratio 0.9 L I & O for Last 24 hours: Intake & Output 04/11/25 04/12/25 04/13/25 04/14/25 23:59 23:59 23:59 23:59 Intake Total 2356.667 / 2578.667 342 / 342 Output Total 500 / 500 325 / 325 Balance 1856.667 / 2078.667 Weight 43.091 kg 42.275 kg 43.998 kg Microbiology Reports for the Last 24 Hours: Microbiology 04/12/25 21:38 Urine,Clean Catch Urine Culture - Final NO GROWTH AFTER 48 HOURS Constitutional Constitutional: no acute distress, cachectic, chronically ill appearing and cooperative *Routine HEENT Exam Head: Present normocephalic Eye: Present EOMI and PERRL ENT: Present mucous membranes moist *Routine Neck Exam Neck: Present supple; Absent lymphadenopathy *Routine Respiratory Exam Respiratory: Present rhonchi and wheezes; Absent accessory muscle use, CTA bilaterally or crackles *Routine Cardiovascular Exam Cardiovascular: Present RRR *Routine Abdominal Exam Abdominal: Present soft and normoactive bowel sounds; Absent tenderness *Routine Rectal Exam Patient deferred: visual exam *Routine Exam Patient deferred: external exam *Routine Extremities Exam Extremities: Absent cyanosis, clubbing or edema Comments: Sarcopenia, senile purpura *Routine Skin Exam Skin: Present intact and warm; Absent rash *Routine Neurological Exam Neurological: Present alert, oriented X3 and moving all extremities; Absent altered mental status Results Data Completed and Pending Labs on day of discharge: Labs from last 24 hours 04/14/25 04/13/25 04/13/25 05:55 16:25 07:30 WBC 5.5 D RBC 4.45 D Hgb 10.8 L 10.6 L D Hct 34.2 L 33.1 L MCV 76.9 L MCH 24.3 L MCHC 31.6 L RDW 19.8 H Plt Count 140 L Neut % (Auto) 64.0 Lymph % (Auto) 20.5 Coleman % (Auto) 13.2 H Eos % (Auto) 0.9 Baso % (Auto) 0.9 Neut # (Auto) 3.5 Lymph # (Auto) 1.1 Coleman # (Auto) 0.7 Eos # (Auto) 0.1 Baso # (Auto) 0.1 Sodium 129 L Potassium 4.5 D Chloride 105 Carbon Dioxide 20 L Anion Gap 8.5 BUN 9 D Creatinine 0.60 Estimated Creat Clear 36 Estimated GFR 99 Est GFR ( Amer) 119 Glucose 99 Calcium 8.0 L Magnesium 2.1 D Total Bilirubin 1.0 AST 33 ALT 9 L Alkaline Phosphatase 74 Total Protein 6.6 Albumin 3.2 L Globulin 3.4 H Albumin/Globulin Ratio 0.9 L Blood Type A Positive Antibody Screen Negative Crossmatch (AHG) See Detail DS: Diagnosis Discharge Diagnosis (1) Encephalopathy: Status: Acute Code(s): G93.40 - Encephalopathy, unspecified Qualifiers: Encephalopathy type: metabolic Qualified Code(s): G93.41 - Metabolic encephalopathy Problem details: Toxic secondary to polypharmacy (2) Mass of right lung: Status: Acute Code(s): R91.8 - Other nonspecific abnormal finding of lung field (3) Hemoptysis: Status: Acute Code(s): R04.2 - Hemoptysis (4) Anemia: Status: Acute Code(s): D64.9 - Anemia, unspecified Qualifiers: Anemia type: other cause Other causes of anemia: acute posthemorrhagic Qualified Code(s): D62 - Acute posthemorrhagic anemia (5) Subclavian artery thrombosis: Status: Acute Code(s): I74.8 - Embolism and thrombosis of other arteries (6) Hypertension: Status: Acute Code(s): I10 - Essential (primary) hypertension Qualifiers: Hypertension type: renovascular hypertension Qualified Code(s): I15.0 - Renovascular hypertension (7) Coronary artery disease: Status: Chronic Code(s): I25.10 - Atherosclerotic heart disease of [place] coronary artery without angina pectoris Qualifiers: Associated angina: without angina Coronary Disease-Associated Artery/Lesion type: [place] artery [place] vs. transplanted heart: [place] heart Qualified Code(s): I25.10 - Atherosclerotic heart disease of [place] coronary artery without angina pectoris (8) COPD (chronic obstructive pulmonary disease): Status: Acute Code(s): J44.9 - Chronic obstructive pulmonary disease, unspecified Qualifiers: COPD type: unspecified COPD Qualified Code(s): J44.9 - Chronic obstructive pulmonary disease, unspecified (9) Tobacco use: Status: Acute Code(s): Z72.0 - Tobacco use (10) Severe protein-calorie malnutrition: Status: Acute Code(s): E43 - Unspecified severe protein-calorie malnutrition Meds Home Medications and Allergies Home Medications ?Medication ?Instructions ?Recorded ?Confirmed ?Type albuterol sulfate 2.5 mg/3 mL 2.5 mg inhalation Q6HP PRN 12/29/18 04/13/25 History (0.083 %) solution for nebulization Shortness Of Breath clopidogrel 75 mg tablet 75 mg PO DAILY 10/20/24 04/13/25 History levothyroxine 25 mcg tablet 25 mcg PO DAILYDM 10/20/24 04/13/25 History losartan 50 mg tablet 75 mg PO DAILY 10/20/24 04/13/25 History rosuvastatin 20 mg tablet 20 mg PO HS 10/20/24 04/13/25 History fluticasone fur. 100 mcg-umeclid 1 inh inhalation DAILY #60 ea 10/22/24 04/13/25 Rx 62.5 mcg-vilant 25 mcg inhalat.powder (Trelegy Ellipta) metoprolol succinate 25 mg 25 mg PO DAILY #0 tabs 10/22/24 04/13/25 Rx tablet,extended release 24 hr ondansetron 4 mg disintegrating 4 mg PO Q8H PRN nausea and 11/05/24 04/13/25 Rx tablet vomiting #20 tabs albuterol sulfate 90 mcg/actuation 2 puff inhalation Q4HP PRN SOA 11/12/24 04/13/25 History aerosol inhaler apixaban 5 mg tablet (Eliquis) 5 mg PO BID 04/13/25 04/13/25 History Held on 04/14/25. Instructions: until follow-up with prescribing provider buprenorphine 8 mg-naloxone 2 mg 1.5 film sublingual DAILY 30 days 04/14/25 04/13/25 Rx sublingual film #0 ea polyethylene glycol 3350 17 gram 17 g PO DAILY 30 days #100 ea 04/14/25 Rx oral powder packet (HealthyLax) New Prescriptions to Start Prescriptions: polyethylene glycol 3350 [HealthyLax] Garry Ribeiro Allergies Allergy/AdvReac Type Severity Reaction Status Date / Time Sulfa (Sulfonamide Allergy Mild Anaphylaxis Verified 12/05/24 10:01 Antibiotics) Discharge Plan Disposition Patient Disposition: Home Health Service Condition: Good Discharge Order Discharge Orders: Discharge Order (Routine); Ordered 04/14/25 Ordered By: Garry Ribeiro Follow up Plan Follow up with: Provider,Referral, MD [Primary Care Provider, Medical] - Enter time for follow up Referral Note: Katina Qiu; [facility] Prescriptions/Medication Reconciliation: New polyethylene glycol 3350 [HealthyLax] 17 gram Powder In Packet 17 g PO DAILY 30 Days Qty: 100 0RF Continued albuterol sulfate 90 mcg/actuation HFA aerosol inhaler 2 puff inhalation Q4HP PRN (Reason: SOA) Patient Comments: INHALE 2 PUFFS EVERY 4 HOURS ondansetron 4 mg tablet,disintegrating 4 mg PO Q8H PRN (Reason: nausea and vomiting) Qty: 20 0RF albuterol sulfate 2.5 MG/NEB solution for nebulization 2.5 mg INHALATION Q6HP PRN (Reason: Shortness Of Breath) losartan 50 mg tablet 75 mg PO DAILY Patient Comments: TAKE 1 AND 1/2 TABLET 1 TIME EACH DAY clopidogrel 75 mg tablet 75 mg PO DAILY Patient Comments: TAKE 1 TABLET 1 TIME EACH DAY levothyroxine 25 mcg tablet 25 mcg PO DAILYDM Patient Comments: TAKE 1 TABLET 1 TIME EACH DAY rosuvastatin 20 mg tablet 20 mg PO HS Patient Comments: TAKE 1 TABLET 1 TIME EACH DAY Trelegy Ellipta 100-62.5-25 mcg Blister With Device 1 inh inhalation DAILY Qty: 60 0RF metoprolol succinate 25 mg Tablet Extended Release 24 Hr 25 mg PO DAILY Qty: 0 0RF Changed buprenorphine-naloxone 8-2 mg film 1.5 film sublingual DAILY 30 Days Qty: 0 0RF Patient Comments: PLACE 2 FILMS UNDER THE TONGUE AND ALLOW TO DISSOLVE 1 TIME EACH DAY Held Eliquis 5 mg tablet 5 mg PO BID Hold Instructions: until follow-up with prescribing provider Discontinued gabapentin 800 mg tablet 800 mg PO TID Patient Comments: TAKE 1 TABLET 3 TIMES EACH DAY Problem Reconciliation Problems Reviewed?: Yes Patient Discharge Instructions ACTIVITY: Continue current activity DIET: continue same diet Patient Instructions: Anemia, DI for Encephalopathy Print Language: [place] Providers Primary Care Provider: Provider,Referral Admit Provider: Garry Ribeiro Attending Provider: Garry Ribeiro
[2025-04-14] MEDS: IRBESARTAN 75MG TABLET 112.5 MG PO (10:15)
[2025-04-14] MEDS: METOPROLOL SUCCINATE XL 25MG TABLET 25 MG PO (10:15)
[2025-04-14] MEDS: BUPRENORPHINE/NALOXONE 8MG/2MG ODT 1 EACH SL (10:15)
[2025-04-14] MEDS: POLYETHYLENE GLYCOL 3350 17 GM PACKET PO (10:16)
[2025-04-14] MEDS: SENNOSIDES 8.6MG/DOCUSATE 50MG TABLET 1 TAB PO (10:16)
[2025-04-14] MEDS: PANTOPRAZOLE 40MG VIAL 40 MG IV (10:16)
[2025-04-14] MEDS: SODIUM CHLORIDE 0.9% 10ML VIAL 10 ML IV (10:16)
[2025-04-14] MEDS: ALBUTEROL-HFA 90MCG/PUFF INHALER 8GM 2 PUFF IH (10:54)
[2025-04-14] MEDS: FLUTICASONE/UMECLIDIN/VILANTER 100/62.5/25MCG INHALER 1 PUFF IH (10:54)
--- NOTE | 2025-04-16 13:54 | CARE MANAGER ---
Addendum entered by Sarah Lambert RN 04/17/25 14:29: [facility] is able to accept patient and will start services. Original Note: Contacted patient related to hospital discharge. She is aware of new medication and has stopped her gabapentin and held her Eliquis. She has not scheduled an appointment with PCP and we discussed the improtance of this. She is agreeable to home health and doesn't have a preference on agency. Information forwarded to [facility].
== END 2025-04-14 13:32 | disposition home or self-care (01) ==
LOC: ER 20:24 → 2ND 23:26
PROVIDERS: Nurse Practitioner Acute Care; Admitting Provider Internal Medicine Adolescent Medicine; Emergency Provider Student in an Organized Health Care Education/Training Program; Visit Provider Internal Medicine Adolescent Medicine
DX: G93.40 Encephalopathy, unspecified (principal); R91.8 Other nonspecific abnormal finding of lung field; R04.2 Hemoptysis; D64.9 Anemia, unspecified; I74.8 Embolism and thrombosis of other arteries; I15.0 Renovascular hypertension; I25.10 Atherosclerotic heart disease of native coronary artery without angina pectoris; J44.9 Chronic obstructive pulmonary disease, unspecified; E78.5 Hyperlipidemia, unspecified; I10 Essential (primary) hypertension; F17.210 Nicotine dependence, cigarettes, uncomplicated; Z88.2 Allergy status to sulfonamides; Z79.899 Other long term (current) drug therapy; Z79.01 Long term (current) use of anticoagulants; Z79.890 Hormone replacement therapy
CPT/HCPCS: 0223U; 36415; 36430; 70450; 71045; 71275; 80053; 80307; 81001; 82803; 83605; 83690; 83735; 84100; 84145; 84439; 84443; 84484; 85014; 85018; 85025; 86850; 87086; 93005; 94640; 99285; G0378; J0574; J2470; J7030; J7050; P9016; Q9967